=== PATIENT | female | born 1940 | race Caucasian/White ===

== ENCOUNTER 2016-07-01 18:14 | Emergency (ER) | payer MEDICARE, OTHER ==
[2016-07-01] MEDS ORDERED: NORCO 5/325 MG PO ONE (18:21)
[2016-07-01] MEDS ORDERED: BACIGUENT PACKET TP ONE (18:21)
--- NOTE | 2016-07-01 18:26 | ERPHSYRPT ---
- History of Present Illness Time Seen by Provider: 07/01/16 18:18 Source: patient, family Physician History: CC: right thumb injury Hx: 75 y/o patient of Dr Amaya. She injured right thumb at home. Hit on a counter. She has a cut. Tetanus vaccine up to date. Pain is severe. Hurts worse with movement. Occurred: just prior to arrival Extremities Pain Location: thumb: right Allergies/Adverse Reactions: No Known Drug Allergies Allergy (Verified 07/01/16 18:24) Home Medications: Dicyclomine HCl [Bentyl] 10 mg PO UD 09/09/14 [History] Hx Tetanus, Diphtheria Vaccination/Date Given: Yes Hx Influenza Vaccination/Date Given: No Hx Pneumococcal Vaccination/Date Given: No - Review of Systems Constitutional: No Symptoms Musculoskeletal: Injury, Joint Pain (right thumb), No Back Pain, No Neck Pain Neurological: No Focal Weakness, No Parasthesia - Past Medical History Pertinent Past Medical History: Yes Neurological History: No Pertinent History ENT History: Cataracts Cardiac History: Hypertension Respiratory History: No Pertinent History Endocrine Medical History: No Pertinent History Musculoskeletal History: Arthritis, Fractures GI Medical History: Other History: No Pertinent History Psycho-Social History: No Pertinent History Female Reproductive Disorders: No Pertinent History Other Medical History: SPASTIC COLON - Past Surgical History Past Surgical History: Yes Neuro Surgical History: No Pertinent History Cardiac: No Pertinent History Respiratory: No Pertinent History Gastrointestinal: Appendectomy, Cholecystectomy Genitourinary: No Pertinent History Musculoskeletal: Joint Replacement, Orthopedic Surgery Female Surgical History: Hysterectomy Other Surgical History: RIGHT KNEE REPLACEMENT IN 2002, SURGERY LEFT WRIST 2002 , LEFT KNEE REPLACEMENT 2014 - Social History Smoking Status: Never smoker Exposure to second hand smoke: No Alcohol Use: None Drug Use: none Patient Lives Alone: No Significant Family History: no pertinent family hx - Female History Hx Now: No - Nursing Vital Signs Nursing Vital Signs: Initial Vital Signs Temperature 97.9 F Temperature Source Oral Pulse Rate 82 Respiratory Rate 20 Blood Pressure [Left Arm] 127/62 Pain Intensity 8 - Physical Exam General Appearance: alert Eyes, Ears, Nose, Throat Exam: moist mucous membranes Cardiovascular/Respiratory Exam: regular rate/rhythm Wrist Exam: normal inspection, non-tender Hand Exam: limited ROM (right thumb, abrasion right thumb, tenderness present. Cap refill intact.) Neuro/Tendon Exam: normal sensation, normal motor functions Mental Status Exam: alert, 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, cooperative Skin Exam: warm, dry - Course Nursing assessment & vital signs reviewed: Yes - Radiology Exams hand X-ray Interpretation: Reviewed by me, No Fracture Ordered Tests: Active Orders 24 hr Category Date Time Status Wound Care STAT Care 07/01/16 18:21 Active HAND (MINIMUM 3 VIEWS) Stat Exams 07/01/16 18:20 Taken Medication Summary Discontinued Medications Generic Name Dose Route Start Last Admin Trade Name Freq PRN Reason Stop Dose Admin Hydrocodone Bitart/Acetaminophen 1 tab 07/01/16 18:21 07/01/16 18:39 [place] 5/325 Mg PO 07/01/16 18:22 1 tab STAT ONE Administration Hydrocodone Bitart/Acetaminophen Confirm 07/01/16 18:31 [place] 5/325 Mg Administered 07/01/16 18:32 Dose 1 tab .ROUTE .STK-MED ONE Bacitracin 0.9 gm 07/01/16 18:21 07/01/16 18:38 [place] Packet TP 07/01/16 18:22 0.9 gm STAT ONE Administration Bacitracin Confirm 07/01/16 18:30 [place] Packet Administered 07/01/16 18:31 Dose 1 gm .ROUTE .STK-MED ONE - Progress Progress Note: 07/01/16 18:44 Abrasion cleansed. Sutures not needed. Will splint and wound care advised. Counseled pt/family regarding: diagnosis, need for follow-up, rad results - Departure Time of Disposition: 18:45 Departure Disposition: Home Clinical Impression: Contusion of right thumb, Abrasion of right thumb Condition: Stable Critical Care Time: No Referrals: MARGO ELI [Primary Care Provider] - Instructions: Abrasion, Contusion Additional Instructions: Cleanse wound daily with mild soap and water. Splint, ice, rest. Tylenol as directed for discomfort. Follow up with Dr Amaya in 2 days if still painful.
[2016-07-01] MEDS ORDERED: BACIGUENT PACKET ONE (18:30)
[2016-07-01] MEDS ORDERED: NORCO 5/325 MG ONE (18:31)
[2016-07-01 18:32] VITALS: O2SAT 94
[2016-07-01 18:57] VITALS: BP 151/46; PULSE 80
--- NOTE | 2016-07-02 08:37 | XRAY ---
Indication: Thumb laceration following injury. Comparison: None 3 views of the right hand demonstrates osteopenia, fourth finger ring, mild degenerative changes of all IP joints, advanced degenerative changes of the first metacarpal multangular articulation, and post surgical changes of the wrist as evidenced by proximal carpalectomy and orthopedic tack. No other bony, articular, or soft tissue abnormalities. Impression: Nonacute right hand with chronic features.
== END 2016-07-01 18:57 | disposition home or self-care (01) ==
LOC: ED 18:14
DX: S60.011A Contusion of right thumb without damage to nail, initial encounter (principal); S60.311A Abrasion of right thumb, initial encounter; W22.8XXA Striking against or struck by other objects, initial encounter; I10 Essential (primary) hypertension
CPT/HCPCS: 73130; 99283; A9270-GY

== ENCOUNTER 2017-03-03 10:54 | Inpatient (IN) | payer MEDICARE, OTHER ==
[2017-03-03 11:30] LABS: ADD MANUAL DIFF? NO (NO); BASOPHIL % 0.2 % (0.0-0.4); Basophil (Absolute #) 0.01 (0-0.4); Eosinophil (Absolute #) 0.17 (0-0.5); Granulocyte Absolute (ANC) 3.37 (1.4-6.9); Granulocytes % 59.8 % (36.0-66.0); Hematocrit 36.2 % (35-47); Hemoglobin 12.3 gm/dl (12.0-16.0); Lymphocyte (Absolute #) 1.39 (1.0-4.6); Lymphocytes % 24.6 % (24.0-44.0); Mean Cell Volume 91.2 fl (78-100); Mean Corpuscular Hemoglobin 30.9 pg (26-32); Mean Platelet Volume 11.2 fl (6-9.5); Monocytes % 12.4 % (0.0-12.0); Platelet Count 196 K/mm3 (150-450); Red Blood Count 3.97 M/mm3 (4.1-5.4); Red Cell Distribution Width 13.5 % (11.5-14.0); White Blood Count 5.6 K/mm3 (4.0-10.5)
[2017-03-03 11:52] LABS: TROPONIN < 0.017 ng/ml (0.000-0.056)
[2017-03-03] MEDS ORDERED: BABY ASPIRIN 81 MG CHEW (11:56)
[2017-03-03] MEDS ORDERED: SUBLIMAZE 100 MCG/2 ML ×2 (11:56→13:02)
[2017-03-03] MEDS: SUBLIMAZE 100 MCG/2 ML IV ×2 (11:57→13:04)
[2017-03-03] MEDS: BABY ASPIRIN 81 MG CHEW PO (11:58)
[2017-03-03 11:59] LABS: ALBUMIN 3.5 g/dL (3.4-5.0); ALKALINE PHOSPHATASE 48 U/L (46-116); ANION GAP 14.1 MEQ/L (5-15); BLOOD UREA NITROGEN 10 mg/dL (9-20); CHLORIDE 106 mEq/L (98-107); Calcium 8.7 mg/dL (8.5-10.1); Carbon Dioxide 25.7 mEq/L (21-32); Creatinine 1 0.78 mg/dl (0.55-1.30); EST GLOMERULAR FILTRATION RATE > 60 ML/MIN; Glucose 108 MG/DL (70-110); Lactic Acid 1.1 (0.4-2.0); NT PRO BNP 694 pg/ml (0-450); Potassium 4.1 mEq/L (3.5-5.1); SGOT/AST 29 U/L (15-37); SGPT/ALT 20 U/L (12-78); SODIUM 142 mEq/L (136-145); Total Protein 7.4 gm/dL (6.4-8.2); VBG BASE EXCESS 3.7 (-2.0-2.0); VBG CARBOXYHEMOGLOBIN 2.9 % T HGB (0.0-6.9); VBG HCO3- 27.7 meq/L (22-28); VBG HEMOGLOBIN 12.9; VBG O2 SATURATION 88.3 (95-100); VBG PCO2 39 mm/Hg (42-55); VBG POTASSIUM 4.3 (3.5-5.1); VBG pH 7.46 (7.32-7.42)
[2017-03-03] MEDS ORDERED: PROVENTIL 2.5 MG/3 ML NEB IH (12:13)
[2017-03-03] MEDS: PROVENTIL 2.5 MG/3 ML NEB IH (12:15)
[2017-03-03] MEDS ORDERED: Lasix 40 MG/4 ML (12:29)
[2017-03-03] MEDS: Lasix 40 MG/4 ML IV (12:29)
[2017-03-03 12:58] LABS: D-DIMER QUANTITATION 784.79 ng/mL (0-500)
[2017-03-03 13:07] LABS: ADD URINE CULTURE? NO (NO); Appearance CLEAR (CLEAR); Bilirubin NEGATIVE (NEGATIVE); Blood NEGATIVE Ery/ul (0-5); COMPLETE URINE MICROSCOPIC? NO; Collection Type VOID; Glucose NEGATIVE (NEGATIVE); Ketones NEGATIVE (NEGATIVE); Leukocyte Esterase NEGATIVE (NEGATIVE); Nitrite NEGATIVE (NEGATIVE); Protein,Urine Dip NEGATIVE (Negative); Specific Gravity 1.005 (1.005-1.025); Urobilinogen NORMAL mg/dL (0-1)
[2017-03-03] MEDS: DUONEB 0.5-3 MG/3 ml Neb IH ×2 (15:57→19:32)
[2017-03-03 17:49] LABS: AMYLASE 28 U/L (25-115)
[2017-03-03 17:49] LABS: LIPASE 69 U/L (73-393)
[2017-03-03] MEDS: MORPHINE SULFATE 4 MG INJ IV (18:26)
[2017-03-03] MEDS: PROTONIX 40 MG IV IV (18:26)
[2017-03-03 18:31] LABS: TROPONIN < 0.017 ng/ml (0.000-0.056)
[2017-03-03 18:35] LABS: INFLUENZA B NEGATIVE (NEGATIVE); RESPIRATORY SYNCTIAL VIRUS NEGATIVE (Negative)
[2017-03-03 18:37] LABS: INFLUENZA A POSITIVE (NEGATIVE)
[2017-03-03 20:18] LABS: TROPONIN < 0.017 ng/ml (0.000-0.056)
[2017-03-03 21:08] LABS: TROPONIN < 0.017 ng/ml (0.000-0.056)
[2017-03-03] MEDS: Tamiflu 75MG Capsule PO (23:16)
[2017-03-03 23:56] LABS: TROPONIN < 0.017 ng/ml (0.000-0.056)
[2017-03-04] MEDS: DUONEB 0.5-3 MG/3 ml Neb IH ×7 (00:24→23:27)
[2017-03-04] MEDS: Zofran 4 MG/2 ML VIAL IV (01:32)
[2017-03-04 05:46] LABS: BASOPHIL % 0.1 % (0.0-0.4); Basophil (Absolute #) 0.01 (0-0.4); Eosinophil % 0.6 % (0.00-5.0); Eosinophil (Absolute #) 0.04 (0-0.5); Granulocyte Absolute (ANC) 5.22 (1.4-6.9); Granulocytes % 75.1 % (36.0-66.0); Hematocrit 33.9 % (35-47); Hemoglobin 11.2 gm/dl (12.0-16.0); Lymphocytes % 14.4 % (24.0-44.0); Mean Cell Volume 91.6 fl (78-100); Mean Platelet Volume 10.6 fl (6-9.5); Monocyte (Absolute #) 0.68 (0.0-1.3); Monocytes % 9.8 % (0.0-12.0); Platelet Count 219 K/mm3 (150-450); Red Cell Distribution Width 13.5 % (11.5-14.0)
[2017-03-04 05:50] LABS: Mean Corpuscular Hemoglobin 30.2 pg (26-32)
[2017-03-04 05:51] LABS: ADD MANUAL DIFF? NO (NO)
[2017-03-04 06:58] LABS: ANION GAP 11.9 MEQ/L (5-15); BLOOD UREA NITROGEN 16 mg/dL (9-20); CHLORIDE 103 mEq/L (98-107); Calcium 8.4 mg/dL (8.5-10.1); Carbon Dioxide 29.4 mEq/L (21-32); Creatinine 1 1.03 mg/dl (0.55-1.30); EST GLOMERULAR FILTRATION RATE 56 ML/MIN; Glucose 149 MG/DL (70-110); Potassium 3.1 mEq/L (3.5-5.1); SODIUM 141 mEq/L (136-145)
[2017-03-04] MEDS: ECOTRIN 81 MG PO (09:00)
[2017-03-04] MEDS: OSELTAMIVIR PHOSPHATE 30 MG CAP PO ×2 (09:00→21:21)
[2017-03-04] MEDS: Klor Con 10 MEQ PO (09:00)
[2017-03-04] MEDS: ENOXAPARIN SODIUM SQ (09:01)
[2017-03-04] MEDS: PROTONIX 40 MG IV IV (09:01)
[2017-03-04] MEDS: PHARMACY DOSING REQUEST MC (09:01)
[2017-03-04] MEDS ORDERED: BENTYL 20 MG PO (09:45)
[2017-03-04] MEDS: Zosyn 2.25 GM 2.25 GM in Dextrose 5%/Water IV Soln. 100ML PLUS BAG 100 ML IV ×4 (16:57→23:46)
[2017-03-04] MEDS: TYLENOL 325 MG PO (21:21)
[2017-03-04] MEDS: Robitussin 100 MG/5 ML PO (21:21)
[2017-03-05] MEDS: DUONEB 0.5-3 MG/3 ml Neb IH ×5 (03:26→19:59)
[2017-03-05] MEDS: Zosyn 2.25 GM 2.25 GM in Dextrose 5%/Water IV Soln. 100ML PLUS BAG 100 ML IV ×4 (05:03→23:35)
[2017-03-05 05:39] LABS: BASOPHIL % 0.3 % (0.0-0.4); Basophil (Absolute #) 0.02 (0-0.4); Eosinophil % 5.1 % (0.00-5.0); Eosinophil (Absolute #) 0.32 (0-0.5); Granulocyte Absolute (ANC) 3.31 (1.4-6.9); Granulocytes % 52.9 % (36.0-66.0); Hematocrit 32.5 % (35-47); Hemoglobin 10.4 gm/dl (12.0-16.0); Lymphocytes % 27.2 % (24.0-44.0); Mean Cell Volume 92.6 fl (78-100); Mean Corpuscular Hemoglobin 29.6 pg (26-32); Mean Platelet Volume 10.8 fl (6-9.5); Monocyte (Absolute #) 0.91 (0.0-1.3); Monocytes % 14.5 % (0.0-12.0); Platelet Count 209 K/mm3 (150-450); Red Blood Count 3.51 M/mm3 (4.1-5.4); Red Cell Distribution Width 13.5 % (11.5-14.0); White Blood Count 6.3 K/mm3 (4.0-10.5)
[2017-03-05 06:45] LABS: ANION GAP 10.5 MEQ/L (5-15); BLOOD UREA NITROGEN 15 mg/dL (9-20); CHLORIDE 104 mEq/L (98-107); Calcium 8.5 mg/dL (8.5-10.1); Carbon Dioxide 30.5 mEq/L (21-32); Creatinine 1 1.01 mg/dl (0.55-1.30); EST GLOMERULAR FILTRATION RATE 57 ML/MIN; Glucose 105 MG/DL (70-110); Potassium 3.6 mEq/L (3.5-5.1); SODIUM 141 mEq/L (136-145)
[2017-03-05] MEDS: PROTONIX 40 MG IV IV (08:12)
[2017-03-05] MEDS: OSELTAMIVIR PHOSPHATE 30 MG CAP PO ×2 (08:12→21:46)
[2017-03-05] MEDS: ECOTRIN 81 MG PO (08:12)
[2017-03-05] MEDS: ENOXAPARIN SODIUM SQ (08:12)
[2017-03-05] MEDS: Robitussin 100 MG/5 ML PO (08:13)
[2017-03-05] MEDS: Ear Wax Drops OT (13:58)
[2017-03-06] MEDS: MORPHINE SULFATE 4 MG INJ IV (02:41)
[2017-03-06] MEDS: Robitussin 100 MG/5 ML PO ×2 (02:41→08:32)
[2017-03-06] MEDS: DUONEB 0.5-3 MG/3 ml Neb IH ×6 (04:02→23:25)
[2017-03-06] MEDS: Zosyn 2.25 GM 2.25 GM in Dextrose 5%/Water IV Soln. 100ML PLUS BAG 100 ML IV ×4 (05:00→23:26)
[2017-03-06 06:16] LABS: BASOPHIL % 0.4 % (0.0-0.4); Basophil (Absolute #) 0.03 (0-0.4); Eosinophil % 6.8 % (0.00-5.0); Eosinophil (Absolute #) 0.51 (0-0.5); Granulocyte Absolute (ANC) 4.38 (1.4-6.9); Granulocytes % 58.6 % (36.0-66.0); Hematocrit 32.9 % (35-47); Hemoglobin 10.5 gm/dl (12.0-16.0); Lymphocyte (Absolute #) 1.78 (1.0-4.6); Lymphocytes % 23.8 % (24.0-44.0); Mean Corpuscular Hgb Concent. 31.9 g/dl (32-36); Mean Platelet Volume 10.9 fl (6-9.5); Monocyte (Absolute #) 0.78 (0.0-1.3); Monocytes % 10.4 % (0.0-12.0); Platelet Count 245 K/mm3 (150-450); Red Cell Distribution Width 13.7 % (11.5-14.0); White Blood Count 7.5 K/mm3 (4.0-10.5)
[2017-03-06 06:18] LABS: ADD MANUAL DIFF? NO (NO)
[2017-03-06 06:59] LABS: ANION GAP 10.2 MEQ/L (5-15); BLOOD UREA NITROGEN 16 mg/dL (9-20); CHLORIDE 105 mEq/L (98-107); Calcium 8.6 mg/dL (8.5-10.1); Carbon Dioxide 30.7 mEq/L (21-32); Creatinine 1 1.03 mg/dl (0.55-1.30); EST GLOMERULAR FILTRATION RATE 56 ML/MIN; Glucose 106 MG/DL (70-110); SODIUM 142 mEq/L (136-145)
[2017-03-06] MEDS: ECOTRIN 81 MG PO (08:33)
[2017-03-06] MEDS: OSELTAMIVIR PHOSPHATE 30 MG CAP PO ×2 (08:33→22:18)
[2017-03-06] MEDS: PROTONIX 40 MG IV IV (08:34)
[2017-03-06] MEDS: ENOXAPARIN SODIUM SQ (08:35)
[2017-03-06] MEDS: Ear Wax Drops OT (08:48)
[2017-03-06] MEDS: FLUZONE HIGH-DOSE 2017-18 SYR IM (10:56)
[2017-03-06] MEDS: NORCO 5/325 MG PO (12:15)
[2017-03-07] MEDS: DUONEB 0.5-3 MG/3 ml Neb IH ×4 (04:16→15:15)
[2017-03-07] MEDS: Zosyn 2.25 GM 2.25 GM in Dextrose 5%/Water IV Soln. 100ML PLUS BAG 100 ML IV ×2 (05:09→11:12)
[2017-03-07 06:15] LABS: BASOPHIL % 0.3 % (0.0-0.4); Basophil (Absolute #) 0.02 (0-0.4); Eosinophil % 7.4 % (0.00-5.0); Eosinophil (Absolute #) 0.58 (0-0.5); Granulocyte Absolute (ANC) 4.98 (1.4-6.9); Granulocytes % 63.1 % (36.0-66.0); Hematocrit 34.3 % (35-47); Hemoglobin 10.8 gm/dl (12.0-16.0); Lymphocytes % 17.7 % (24.0-44.0); Mean Corpuscular Hgb Concent. 31.5 g/dl (32-36); Mean Platelet Volume 10.8 fl (6-9.5); Monocyte (Absolute #) 0.91 (0.0-1.3); Monocytes % 11.5 % (0.0-12.0); Platelet Count 276 K/mm3 (150-450); Red Blood Count 3.65 M/mm3 (4.1-5.4); Red Cell Distribution Width 13.5 % (11.5-14.0); White Blood Count 7.9 K/mm3 (4.0-10.5)
[2017-03-07 06:26] LABS: Mean Corpuscular Hemoglobin 29.5 pg (26-32)
[2017-03-07 06:27] LABS: ADD MANUAL DIFF? NO (NO)
[2017-03-07 07:01] LABS: ANION GAP 10.9 MEQ/L (5-15); BLOOD UREA NITROGEN 17 mg/dL (9-20); CHLORIDE 105 mEq/L (98-107); Carbon Dioxide 29.8 mEq/L (21-32); EST GLOMERULAR FILTRATION RATE 57 ML/MIN; Glucose 93 MG/DL (70-110); Potassium 3.8 mEq/L (3.5-5.1); SODIUM 142 mEq/L (136-145)
[2017-03-07] MEDS: PROTONIX 40 MG IV IV (11:00)
[2017-03-07] MEDS: ECOTRIN 81 MG PO (11:11)
[2017-03-07] MEDS: OSELTAMIVIR PHOSPHATE 30 MG CAP PO (11:12)
[2017-03-07] MEDS: ENOXAPARIN SODIUM SQ (11:12)
[2017-03-07] MEDS: Ear Wax Drops OT (11:24)
== END 2017-03-07 18:05 | disposition home or self-care (01) ==
LOC: ED 10:54 → MED SURG 14:45
CPT/HCPCS: 36000; 36415; 71045; 71046; 71100; 71260; 74176; 80048; 80053; 81002; 82150; 82805; 82962; 83605; 83690; 83880; 84484; 85025; 85379; 87631; 93005; 93041; 93268; 93306; 94640; 94760; 96374; 99285; G0008; G0378; J1650; J1940; J2270; J2405; J2543; J3010

== ENCOUNTER 2017-03-11 13:47 | Emergency (ER) | payer MEDICARE ==
--- NOTE | 2017-03-11 14:21 | ERPHSYRPT ---
- History of Present Illness Time Seen by Provider: 03/11/17 13:54 Source: patient Exam Limitations: no limitations Patient Subjective Stated Complaint: loose stools for 2 days now. no fever, no nausea or vomiting, states she feels weak Triage Nursing Assessment: pt alert,walked in, resp easy, skin w/d pink. no edema noted Physician History: patient was recently admitted from 03/04 to 03/07/2017 for influenza. Patient was also noted to head diverticulitis from abdominal/pelvic CT during her stay. Patient was apparently doing well until today when she noted increased diarrhea and weakness. States diarrhea is watery and without any blood. Patient 's states that she does have 1-2 loose stools per but had about 5 loose stools in the past ho prior to arrival. Patient denies any abdominal pain, fever, chills, cough, chest/abdominal pain, nausea, vomiting or any urinary symptoms. Timing/Duration: today Severity: moderate Associated Symptoms: weakness, other (diarrhea X 5 in past hour), No nausea, No vomiting, No shortness of breath, No diaphoresis Allergies/Adverse Reactions: No Known Drug Allergies Allergy (Verified 03/11/17 13:54) Home Medications: Dicyclomine HCl [Bentyl] 10 mg PO UD 09/09/14 [History] Hx Tetanus, Diphtheria Vaccination/Date Given: Yes Hx Influenza Vaccination/Date Given: Yes Hx Pneumococcal Vaccination/Date Given: No Immunizations Up to Date: Yes - Review of Systems Constitutional: No Fever, No Chills Eyes: No Symptoms Ears, Nose, & Throat: No Symptoms Respiratory: No Cough, No Dyspnea Cardiac: No Chest Pain, No Edema, No Syncope Abdominal/Gastrointestinal: Diarrhea, No Abdominal Pain, No Nausea, No Vomiting Genitourinary Symptoms: No Dysuria, No Frequency, No Hematuria, No Hesitancy, No Incontinence, No Urgency Musculoskeletal: No Back Pain, No Neck Pain Skin: No Rash Neurological: No Dizziness, No Focal Weakness, No Sensory Changes Psychological: No Symptoms Endocrine: No Symptoms All Other Systems: Reviewed and Negative - Past Medical History Pertinent Past Medical History: Yes Neurological History: No Pertinent History ENT History: Cataracts Cardiac History: Hypertension Respiratory History: No Pertinent History Endocrine Medical History: No Pertinent History Musculoskeletal History: Arthritis, Fractures GI Medical History: Other History: No Pertinent History Psycho-Social History: No Pertinent History Female Reproductive Disorders: No Pertinent History Other Medical History: SPASTIC COLON - Past Surgical History Past Surgical History: Yes Neuro Surgical History: No Pertinent History Cardiac: No Pertinent History Respiratory: No Pertinent History Gastrointestinal: Appendectomy, Cholecystectomy Genitourinary: No Pertinent History Musculoskeletal: Joint Replacement, Orthopedic Surgery Female Surgical History: Hysterectomy Other Surgical History: RIGHT KNEE REPLACEMENT IN 2002, SURGERY LEFT WRIST 2002 , LEFT KNEE REPLACEMENT 2014 - Social History Smoking Status: Never smoker Exposure to second hand smoke: Yes Alcohol Use: None Drug Use: none Patient Lives Alone: No Significant Family History: no pertinent family hx - Female History Hx Last Menstrual Period: post Hx Now: No - Nursing Vital Signs Nursing Vital Signs: Initial Vital Signs Temperature 98.2 F 03/11/17 13:57 Pulse Rate 80 03/11/17 13:57 Respiratory Rate 18 03/11/17 13:57 Blood Pressure 159/109 03/11/17 13:57 O2 Sat by Pulse Oximetry 98 03/11/17 13:57 Pain Scale Pain Intensity 0 - Physical Exam General Appearance: no apparent distress, alert Eye Exam: PERRL/EOMI, eyes nml inspection Ears, Nose, Throat Exam: normal ENT inspection, TMs normal, pharynx normal, moist mucous membranes Neck Exam: normal inspection, non-tender, supple, full range of motion Respiratory Exam: normal breath sounds, lungs clear, No respiratory distress Cardiovascular Exam: regular rate/rhythm, normal heart sounds, normal peripheral pulses Gastrointestinal/Abdomen Exam: soft, normal bowel sounds, No tenderness, No distention, No mass Pelvic Exam: not done Back Exam: normal inspection, normal range of motion, No CVA tenderness, No vertebral tenderness Extremity Exam: normal inspection, normal range of motion, pelvis stable Neurologic Exam: alert, 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, cooperative, normal mood/affect, nml cerebellar function, nml station & gait, sensation nml, No motor deficits Skin Exam: normal color, warm, dry, No rash Lymphatic Exam: No adenopathy SpO2: 98 Oxygen Delivery: Room Air - Course Nursing assessment & vital signs reviewed: Yes - Radiology Exams Abdomen X-ray Interpretation: Reviewed by me, Negative, Other (No free air or obstruction) Ordered Tests: Active Orders 24 hr Category Date Time Status IV Insertion STAT Care 03/11/17 14:10 Active cath [Cath for Specimen-Straight] STAT Care 03/11/17 14:52 Active OBSTR/ACUTE ABDOMEN SERIES Stat Exams 03/11/17 15:16 Taken CBC W DIFF Stat Lab 03/11/17 14:22 Completed CMP Stat Lab 03/11/17 14:22 Completed UA W/RFX UR CULTURE Stat Lab 03/11/17 14:10 Completed Medication Summary Discontinued Medications Generic Name Dose Route Start Last Admin Trade Name Jacey PRN Reason Stop Dose Admin Sodium Chloride 500 mls @ 999 mls/hr 03/11/17 14:55 03/11/17 15:13 Sodium Chloride 0.9% 1000 Ml IV 03/11/17 15:25 999 mls/hr .Q31M STA Administration Sodium Chloride Confirm 03/11/17 15:08 Sodium Chloride 0.9% 1000 Ml Administered 03/11/17 15:09 Dose 1,000 mls @ ud .ROUTE .STK-MED ONE Lab/Rad Data: Laboratory Result Diagrams 03/11/17 14:22 03/11/17 14:22 Laboratory Results 03/11/17 03/11/17 03/11/17 Range/Units 14:22 14:22 14:10 WBC 9.5 (4.0-10.5) K/mm3 RBC 4.19 (4.1-5.4) M/mm3 Hgb 12.5 (12.0-16.0) gm/dl Hct 38.6 (35-47) % MCV 92.1 (78-100) fl MCH 29.8 (26-32) pg MCHC 32.4 (32-36) g/dl RDW 13.5 (11.5-14.0) % Plt Count 333 (150-450) K/mm3 MPV 10.3 H (6-9.5) fl Gran % 69.1 H (36.0-66.0) % Lymphocytes % 16.6 L (24.0-44.0) % Monocytes % 8.8 (0.0-12.0) % Eosinophils % 5.1 H (0.00-5.0) % Basophils % 0.4 (0.0-0.4) % Basophils # 0.04 (0-0.4) Sodium 142 (136-145) mEq/L Potassium 3.9 (3.5-5.1) mEq/L Chloride 104 (98-107) mEq/L Carbon Dioxide 30.7 (21-32) mEq/L Anion Gap 11.5 (5-15) MEQ/L BUN 15 (9-20) mg/dL Creatinine 1.06 (0.55-1.30) mg/dl Estimated GFR 54 ML/MIN Glucose 102 (70-110) MG/DL Calcium 9.1 (8.5-10.1) mg/dL Total Bilirubin 0.30 (0.2-1.0) mg/dL AST 22 (15-37) U/L ALT 31 (12-78) U/L Alkaline Phosphatase 65 (46-116) U/L Serum Total Protein 7.8 (6.4-8.2) gm/dL Albumin 3.6 (3.4-5.0) g/dL Ur Collection Type CATH Urine Color YELLOW (YELLOW) Urine Appearance CLEAR (CLEAR) Urine pH 7.0 (5-6) Ur Specific [place] 05 (1.005-1.025) Urine Protein NEGATIVE (Negative) Urine Ketones NEGATIVE (NEGATIVE) Urine Blood NEGATIVE (0-5) Jerad/ul Urine Nitrite NEGATIVE (NEGATIVE) Urine Bilirubin NEGATIVE (NEGATIVE) Urine Urobilinogen NORMAL (0-1) mg/dL Ur Leukocyte Esterase NEGATIVE (NEGATIVE) Urine Culture Reflexed NO (NO) Urine Glucose NEGATIVE (NEGATIVE) mg/dL Specimen Received 03-11-17 1445 - Progress Progress: improved Progress Note: 03/11/17 16:34 Pt. given IVF's and states she feels better 03/11/17 17:27 Pt. unable to give stool sample for C. diff. Will give stool collection kit and out pt. order for stool when available. Counseled pt/family regarding: lab results, diagnosis, rad results - Departure Time of Disposition: 17:29 Departure Disposition: Home Clinical Impression: Diarrhea Condition: Stable Critical Care Time: No Referrals: FOREIGN HARRY [Primary Care Provider] - Instructions: Diarrhea in Adolescents and Adults Additional Instructions: Drink plenty of clear liquids Motrin or Tylenol for fever Return for worse diarrhea, vomiting, abdominal pain, dizziness, weakness or any problems
[2017-03-11 14:22] LABS: BASOPHIL % 0.4 % (0.0-0.4); Basophil (Absolute #) 0.04 (0-0.4); Eosinophil % 5.1 % (0.00-5.0); Eosinophil (Absolute #) 0.48 (0-0.5); Granulocyte Absolute (ANC) 6.53 (1.4-6.9); Granulocytes % 69.1 % (36.0-66.0); Hematocrit 38.6 % (35-47); Hemoglobin 12.5 gm/dl (12.0-16.0); Lymphocyte (Absolute #) 1.57 (1.0-4.6); Lymphocytes % 16.6 % (24.0-44.0); Mean Cell Volume 92.1 fl (78-100); Mean Corpuscular Hemoglobin 29.8 pg (26-32); Mean Corpuscular Hgb Concent. 32.4 g/dl (32-36); Mean Platelet Volume 10.3 fl (6-9.5); Monocyte (Absolute #) 0.83 (0.0-1.3); Monocytes % 8.8 % (0.0-12.0); Platelet Count 333 K/mm3 (150-450); Red Blood Count 4.19 M/mm3 (4.1-5.4); Red Cell Distribution Width 13.5 % (11.5-14.0); White Blood Count 9.5 K/mm3 (4.0-10.5)
[2017-03-11 14:50] LABS: ALBUMIN 3.6 g/dL (3.4-5.0); ANION GAP 11.5 MEQ/L (5-15); BILIRUBIN,TOTAL 0.3 mg/dL (0.2-1.0); Calcium 9.1 mg/dL (8.5-10.1); Carbon Dioxide 30.7 mEq/L (21-32); Creatinine 1 1.06 mg/dl (0.55-1.30); Potassium 3.9 mEq/L (3.5-5.1); Total Protein 7.8 gm/dL (6.4-8.2)
[2017-03-11 15:00] LABS: Appearance CLEAR (CLEAR); Bilirubin NEGATIVE (NEGATIVE); Blood NEGATIVE Ery/ul (0-5); Glucose NEGATIVE (NEGATIVE); Ketones NEGATIVE (NEGATIVE); Leukocyte Esterase NEGATIVE (NEGATIVE); Nitrite NEGATIVE (NEGATIVE); Protein,Urine Dip NEGATIVE (Negative); Urobilinogen NORMAL mg/dL (0-1)
[2017-03-11] MEDS ORDERED: Sodium Chloride 0.9% 1000 ML 1,000 ML ONE (15:08)
[2017-03-11 17:45] VITALS: BP 154/78; PULSE 84; O2SAT 95
--- NOTE | 2017-03-11 20:37 | XRAY ---
Indication: Diarrhea 2 weeks. Flu symptoms. Comparison: Chest exam March 06, 2017. 2 views of the abdomen nonacute and nonobstructed with cholecystotomy clips. Solid organs unremarkable. Osseous structures intact with mild degenerative changes throughout the spine. Single AP chest again demonstrates normal heart and lungs with a few incidental calcified granulomas. No new/acute findings. Impression: 1. Negative abdomen. 2. Stable nonacute one view chest.
== END 2017-03-11 17:49 | disposition home or self-care (01) ==
LOC: ED 13:47
DX: R19.7 Diarrhea, unspecified (principal); R53.1 Weakness
CPT/HCPCS: 99284; 36000; 96360; 81002; 36415; 85025; 80053; 74022; P9612

== ENCOUNTER 2017-07-30 14:01 | Emergency (ER) | payer MEDICARE ==
[2017-07-30] MEDS ORDERED: MORPHINE SULFATE 4 MG INJ IV ONE (14:21)
[2017-07-30] MEDS ORDERED: Zofran 4 MG/2 ML VIAL IV ONE ×2 (14:22→16:01)
--- NOTE | 2017-07-30 14:26 | ERPHSYRPT ---
- History of Present Illness Time Seen by Provider: 07/30/17 14:13 Source: patient Exam Limitations: no limitations Patient Subjective Stated Complaint: pt brought to ed per ems-medic 1- from home with reports of severe right knee pain-pt reports right knee pain started thursday-denies fall or injury-states that she seen [facility] today-labs were ordered and drawn-pt rode home and when she got home her knee hurt to bad to get out of the vehicle Triage Nursing Assessment: pt arrived to ed pale warm and [id number] swelling noted-no redness-no obvious injury Physician History: 77 y/o female brought in by EMS for severe right knee pain for the past 2 days. Pt states that she can not bear weight on it. No known injury to the knee. Pt admits that the knee is more swollen and warm to touch. No fever or chills. Pt describes the pain as sharp, constant, 8/10, worse with movement and pt has not taken any pain meds. Pt was seen in the clinic and had a negative knee x ray. Method of Injury: unknown Occurred: yesterday Quality: constant Severity of Pain-Max: severe Severity of Pain-Current: severe Lower Extremities Pain: knee: right Modifying Factors: Improves With: nothing Associated Symptoms: none Allergies/Adverse Reactions: No Known Drug Allergies Allergy (Verified 07/30/17 14:13) Home Medications: Dicyclomine HCl [Bentyl] 10 mg PO UD 09/09/14 [History] Hx Tetanus, Diphtheria Vaccination/Date Given: Yes Hx Influenza Vaccination/Date Given: Yes Hx Pneumococcal Vaccination/Date Given: No Immunizations Up to Date: Yes - Review of Systems Constitutional: No Fever, No Chills Eyes: No Symptoms Ears, Nose, & Throat: No Symptoms Respiratory: No Cough, No Dyspnea Cardiac: No Chest Pain, No Edema, No Syncope Abdominal/Gastrointestinal: No Abdominal Pain, No Nausea, No Vomiting, No Diarrhea Genitourinary Symptoms: No Dysuria Musculoskeletal: Joint Pain, Joint Swelling, No Back Pain, No Neck Pain Skin: No Rash Neurological: No Dizziness, No Focal Weakness, No Sensory Changes Psychological: No Symptoms Endocrine: No Symptoms All Other Systems: Reviewed and Negative - Past Medical History Pertinent Past Medical History: Yes Neurological History: No Pertinent History ENT History: Cataracts Cardiac History: Hypertension Respiratory History: No Pertinent History Endocrine Medical History: No Pertinent History Musculoskeletal History: Arthritis, Fractures GI Medical History: Other History: No Pertinent History Psycho-Social History: No Pertinent History Female Reproductive Disorders: No Pertinent History Other Medical History: SPASTIC COLON - Past Surgical History Past Surgical History: Yes Neuro Surgical History: No Pertinent History Cardiac: No Pertinent History Respiratory: No Pertinent History Gastrointestinal: Appendectomy, Cholecystectomy Genitourinary: No Pertinent History Musculoskeletal: Joint Replacement, Orthopedic Surgery Female Surgical History: Hysterectomy Other Surgical History: RIGHT KNEE REPLACEMENT IN 2002, SURGERY LEFT WRIST 2002 , LEFT KNEE REPLACEMENT 2014 - Social History Smoking Status: Never smoker Exposure to second hand smoke: Yes Alcohol Use: None Drug Use: none Patient Lives Alone: No Significant Family History: no pertinent family hx - Female History Hx Now: No - Nursing Vital Signs Nursing Vital Signs: Initial Vital Signs Temperature 99.1 F 07/30/17 14:06 Pulse Rate 101 H 07/30/17 14:06 Respiratory Rate 18 07/30/17 14:06 Blood Pressure 123/70 07/30/17 14:06 O2 Sat by Pulse Oximetry 96 07/30/17 14:06 Pain Scale Pain Intensity 8 - Physical Exam General Appearance: alert Eyes, Ears, Nose, Throat Exam: moist mucous membranes Neck Exam: non-tender, supple Cardiovascular/Respiratory Exam: chest non-tender, normal breath sounds, regular rate/rhythm, no respiratory distress Gastrointestinal/Abdominal Exam: non-tender, guarding Back Exam: normal inspection, No vertebral tenderness Hips Exam: bilateral: non-tender, normal inspection, normal range of motion Legs Exam: bilateral leg: non-tender, normal inspection, normal range of motion Knees Exam: right knee: joint effusion, pain, soft tissue tenderness, swelling Ankle Exam: bilateral ankle: non-tender, normal inspection, normal range of motion, no evidence of injury Foot Exam: bilateral foot: non-tender, normal inspection, normal range of motion , no evidence of injury Neuro/Tendon Exam: normal sensation, normal motor functions Mental Status Exam: alert, 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, cooperative Skin Exam: normal color, warm, dry SpO2: 96 Oxygen Delivery: Room Air - Course Nursing assessment & vital signs reviewed: Yes Ordered Tests: Active Orders 24 hr Category Date Time Status IV Insertion STAT Care 07/30/17 14:21 Active KNEE (3 VIEWS) Routine Exams 07/30/17 15:48 Completed VENOUS UNILAT/LIMITED EXTREMIT [US] Stat Exams 07/30/17 15:22 Completed BLOOD CULTURE Stat Lab 07/30/17 15:24 Received CBC W DIFF Stat Lab 07/30/17 14:13 Completed CMP Stat Lab 07/30/17 14:13 Completed Erythrocyte Sedimentation Rate Stat Lab 07/30/17 14:13 Completed Uric Acid Stat Lab 07/30/17 14:13 Completed Medication Summary Discontinued Medications Generic Name Dose Route Start Last Admin Trade Name Alokq PRN Reason Stop Dose Admin Hydromorphone HCl 1 mg 07/30/17 16:00 07/30/17 16:15 Hydromorphone 1 Mg/Ml Ampule IV 07/30/17 16:01 1 mg STAT ONE Administration Hydromorphone HCl Confirm 07/30/17 16:11 Dilaudid 2 Mg Injection Administered 07/30/17 16:12 Dose 2 mg .ROUTE .STK-MED ONE Vancomycin HCl 1 gm in 250 mls @ 167 mls/hr 07/30/17 16:01 07/30/17 16:15 Vancomycin 1gm/ Ns 250ml IV 07/30/17 17:30 167 mls/hr STAT ONE Administration Vancomycin HCl Confirm 07/30/17 16:11 Vancomycin 1gm/ Ns 250ml Administered 07/30/17 16:12 Dose 250 mls @ ud IV .STK-MED ONE Morphine Sulfate 4 mg 07/30/17 14:21 07/30/17 14:28 Morphine Sulfate 4 Mg Inj IV 07/30/17 14:22 4 mg STAT ONE Administration Morphine Sulfate Confirm 07/30/17 14:27 Morphine Sulfate 4 Mg Inj Administered 07/30/17 14:28 Dose 4 mg .ROUTE .STK-MED ONE Ondansetron HCl 4 mg 07/30/17 14:22 07/30/17 14:28 Zofran 4 Mg/2 Ml Vial IV 07/30/17 14:23 4 mg STAT ONE Administration Ondansetron HCl Confirm 07/30/17 14:27 Zofran 4 Mg/2 Ml Vial Administered 07/30/17 14:28 Dose 4 mg .ROUTE .STK-MED ONE Ondansetron HCl 4 mg 07/30/17 16:01 07/30/17 16:15 Zofran 4 Mg/2 Ml Vial IV 07/30/17 16:02 4 mg STAT ONE Administration Ondansetron HCl Confirm 07/30/17 16:11 Zofran 4 Mg/2 Ml Vial Administered 07/30/17 16:12 Dose 4 mg .ROUTE .STK-MED ONE Lab/Rad Data: Laboratory Result Diagrams 07/30/17 14:13 07/30/17 14:13 Laboratory Results 07/30/17 07/30/17 Range/Units 14:13 14:13 WBC 12.6 H (4.0-10.5) K/mm3 RBC 4.01 L (4.1-5.4) M/mm3 Hgb 12.4 (12.0-16.0) gm/dl Hct 36.8 (35-47) % MCV 91.8 (78-100) fl MCH 30.9 (26-32) pg MCHC 33.7 (32-36) g/dl RDW 13.2 (11.5-14.0) % Plt Count 230 (150-450) K/mm3 MPV 10.7 H (6-9.5) fl Gran % 74.1 H (36.0-66.0) % Eos # (Auto) 0.10 (0-0.5) Absolute Lymphs (auto) 1.78 (1.0-4.6) Absolute Monos (auto) 1.36 H (0.0-1.3) Lymphocytes % 14.1 L (24.0-44.0) % Monocytes % 10.8 (0.0-12.0) % Eosinophils % 0.8 (0.00-5.0) % Basophils % 0.2 (0.0-0.4) % Absolute Granulocytes 9.33 H (1.4-6.9) Basophils # 0.03 (0-0.4) ESR 67 H (0-20) mm/hr Sodium 144 (137-145) mmol/L Potassium 4.0 (3.5-5.1) mmol/L Chloride 106 (98-107) mmol/L Carbon Dioxide 25 (22-30) mmol/L Anion Gap 17.1 H (5-15) MEQ/L BUN 22 H (7-17) mg/dL Creatinine 0.79 (0.52-1.04) mg/dL Estimated GFR > 60.0 ML/MIN Glucose 147 H (74-106) mg/dL Uric Acid 5.5 (2.6-6.0) mg/dL Calcium 9.2 (8.4-10.2) mg/dL Total Bilirubin 0.80 (0.2-1.3) mg/dL AST 18 (14-36) U/L ALT 10 (0-35) U/L Alkaline Phosphatase 51 (38-126) U/L Serum Total Protein 7.3 (6.3-8.2) g/dL Albumin 4.1 (3.5-5.0) g/dL - Progress Progress: unchanged Progress Note: 07/30/17 16:09 As per the dialysis biomed technician, the CT scan LE can not be done due to hardware distorting the image. The patient has a white count of 12,000 and an ESR of 67. Pt still has knee pain after receiving morphine. Pt will be given a dose of dilaudid as well as vancomycin for possible septic joint. There is not enough of an effusion to tap the knee. Pt will require orthopedic evaluation and pt prefers to be transferred to orthopedics in [place]. 07/30/17 16:27 Pt has alejandro accepted at [place] under the care of Dr Bower, hospitalist with Dr Hutton, orthopedics as a consult. He requested that the vancomycin be held and the patient be kept NPO. - Departure Time of Disposition: 16:28 Departure Disposition: Transfer Clinical Impression: Knee pain Qualifiers: Chronicity: acute Laterality: right Qualified Code(s): M25.561 - Pain in right knee Condition: Fair Critical Care Time: No Referrals: FOREIGN HARRY [Primary Care Provider] -
[2017-07-30] MEDS ORDERED: Zofran 4 MG/2 ML VIAL ONE ×2 (14:27→16:11)
[2017-07-30] MEDS ORDERED: MORPHINE SULFATE 4 MG INJ ONE (14:27)
[2017-07-30 14:46] LABS: BASOPHIL % 0.2 % (0.0-0.4); Basophil (Absolute #) 0.03 (0-0.4); Eosinophil % 0.8 % (0.00-5.0); Granulocyte Absolute (ANC) 9.33 (1.4-6.9); Granulocytes % 74.1 % (36.0-66.0); Hematocrit 36.8 % (35-47); Hemoglobin 12.4 gm/dl (12.0-16.0); Lymphocyte (Absolute #) 1.78 (1.0-4.6); Lymphocytes % 14.1 % (24.0-44.0); Mean Cell Volume 91.8 fl (78-100); Mean Corpuscular Hemoglobin 30.9 pg (26-32); Mean Corpuscular Hgb Concent. 33.7 g/dl (32-36); Mean Platelet Volume 10.7 fl (6-9.5); Monocyte (Absolute #) 1.36 (0.0-1.3); Monocytes % 10.8 % (0.0-12.0); Platelet Count 230 K/mm3 (150-450); Red Blood Count 4.01 M/mm3 (4.1-5.4); Red Cell Distribution Width 13.2 % (11.5-14.0); White Blood Count 12.6 K/mm3 (4.0-10.5)
[2017-07-30 15:05] LABS: ALBUMIN 4.1 g/dL (3.5-5.0); ALKALINE PHOSPHATASE 51 U/L (38-126); ANION GAP 17.1 MEQ/L (5-15); BLOOD UREA NITROGEN 22 mg/dL (7-17); CHLORIDE 106 mmol/L (98-107); Calcium 9.2 mg/dL (8.4-10.2); Carbon Dioxide 25 mmol/L (22-30); Creatinine 1 0.79 mg/dL (0.52-1.04); Glucose 147 mg/dL (74-106); SGOT/AST 18 U/L (14-36); SGPT/ALT 10 U/L (0-35); SODIUM 144 mmol/L (137-145); Total Protein 7.3 g/dL (6.3-8.2); Uric Acid 5.5 mg/dL (2.6-6.0)
[2017-07-30 15:11] LABS: Erythrocyte Sedimentation Rate 67 mm/hr (0-20)
[2017-07-30] MEDS ORDERED: Hydromorphone 1 mg/ml Ampule IV ONE (16:00)
--- NOTE | 2017-07-30 16:10 | XRAY ---
Indication: Knee pain. No known injury. Comparison: None 3 views of the right knee demonstrates total knee arthroplasty with intact articulation/prosthesis and a few medial/lateral heterotopic ossifications. No other bony, articular, or soft tissue abnormalities.
[2017-07-30] MEDS ORDERED: Vancomycin 1GM/ Ns 250ML*** 250 ML IV ONE (16:11)
[2017-07-30] MEDS ORDERED: DILAUDID 2 MG INJECTION ONE (16:11)
[2017-07-30] MEDS: Vancomycin 1GM/ Ns 250ML*** 1 GM/250 ML IVPB IV ONE ×2 (16:15→16:30)
--- NOTE | 2017-07-30 16:15 | XRAY ---
Indication: Knee pain. Two-dimensional sonogram and color Doppler imaging of the major venous vessels of the right leg was performed. Comparison: None No thrombus seen in the examined deep venous vessels of the right leg including greater saphenous vein. Veins demonstrate normal compressibility. Venous waveforms are normal with and without augmentation. Incidental 1.8 x 2.5 cm popliteal cyst. Impression: Right leg negative for DVT. Incidental popliteal cyst.
[2017-07-30 16:31] VITALS: BP 143/76; PULSE 87; O2SAT 97
== END 2017-07-30 17:19 | disposition short-term general hospital (02) ==
LOC: ED 14:01
DX: M25.561 Pain in right knee (principal); Z79.899 Other long term (current) drug therapy; Z96.653 Presence of artificial knee joint, bilateral
CPT/HCPCS: 36000; 36415; 73562; 80053; 84550; 85025; 85652; 87040; 93971; 96374; 96375; 96376; 99285; J1170; J2270; J2405; J3370

== ENCOUNTER 2017-10-12 11:12 | Emergency (ER) | payer MEDICARE ==
--- NOTE | 2017-10-12 11:52 | ERPHSYRPT ---
- History of Present Illness Time Seen by Provider: 10/12/17 11:50 Source: patient Patient Subjective Stated Complaint: STATES SHE CAME TO OUTPATIENT THERAPY, AND BECAME WEAK AND SHAKY. STATES SHE HAD SOME JUICE WITH NO HELP. STATES SHE HAD LOW HR. Triage Nursing Assessment: ALERT AND ORIENTED. DENIES COUGH OR CONGESTION, CHEST PAIN, NAUSEA, VOMITING. LUNGS CLEAR TO AUSCULTATION. BOWEL SOUNDS WNL. DENIES DIARRHEA OR CONSTIPATION. PEDAL PULSES BILATERAL STRONG. Physician History: mild to mod general weakness today, no injury, no loc, no fever, no NV, no pain Allergies/Adverse Reactions: No Known Drug Allergies Allergy (Verified 07/30/17 14:13) Home Medications: Dicyclomine HCl [Bentyl] 10 mg PO UD 09/09/14 [History] Hx Tetanus, Diphtheria Vaccination/Date Given: Yes Hx Influenza Vaccination/Date Given: Yes Hx Pneumococcal Vaccination/Date Given: Yes Immunizations Up to Date: Yes - Review of Systems Constitutional: Weakness, No Fever Eyes: No Eye Redness, No Vision Changes Ears, Nose, & Throat: No Nose Pain, No Mouth Pain Respiratory: No Cyanosis, No Dyspnea Cardiac: No Chest Pain Abdominal/Gastrointestinal: No Abdominal Pain, No Vomiting Genitourinary Symptoms: No Dysuria Musculoskeletal: No Back Pain, No Neck Pain Skin: No Rash Neurological: No Dizziness, No Focal Weakness, No Headache - Past Medical History Pertinent Past Medical History: Yes Neurological History: No Pertinent History ENT History: Cataracts Cardiac History: No Pertinent History Respiratory History: No Pertinent History Endocrine Medical History: No Pertinent History Musculoskeletal History: Osteoarthritis GI Medical History: Other History: No Pertinent History Psycho-Social History: No Pertinent History Female Reproductive Disorders: No Pertinent History Other Medical History: R TKA 2002, L 2014 - Past Surgical History Past Surgical History: Yes Neuro Surgical History: No Pertinent History Cardiac: No Pertinent History Respiratory: No Pertinent History Gastrointestinal: Appendectomy, Cholecystectomy Genitourinary: No Pertinent History Musculoskeletal: Joint Replacement, Orthopedic Surgery Female Surgical History: Hysterectomy Other Surgical History: RIGHT KNEE REPLACEMENT IN 2002, SURGERY LEFT WRIST 2002 , LEFT KNEE REPLACEMENT 2014 - Social History Smoking Status: Never smoker Exposure to second hand smoke: Yes Alcohol Use: None Drug Use: none Patient Lives Alone: No Significant Family History: no pertinent family hx - Nursing Vital Signs Nursing Vital Signs: Initial Vital Signs Temperature 98.2 F 10/12/17 11:33 Pulse Rate 83 08/27/18 11:33 Respiratory Rate 18 10/12/17 11:33 Blood Pressure 164/110 10/12/17 11:33 O2 Sat by Pulse Oximetry 97 10/12/17 11:33 Pain Scale Pain Intensity 0 - Physical Exam General Appearance: no apparent distress Eye Exam: PERRL/EOMI, eyes nml inspection Ears, Nose, Throat Exam: moist mucous membranes Neck Exam: normal inspection Respiratory Exam: normal breath sounds Cardiovascular Exam: regular rate/rhythm Gastrointestinal/Abdomen Exam: soft, No tenderness Extremity Exam: normal range of motion Neurologic Exam: alert, 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, 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, 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 Skin Exam: warm, dry SpO2 Interpretation: normal SpO2: 97 Oxygen Delivery: Room Air - Course Nursing assessment & vital signs reviewed: Yes EKG Interpreted by Me: Other (nsr 70 no stemi, similar to 02/2017) Ordered Tests: Active Orders 24 hr Category Date Time Status Logistics Specialist STAT Care 10/12/17 11:49 Active EKG-ER Only STAT Care 10/12/17 11:47 Active IV Insertion STAT Care 10/12/17 11:47 Active Orthostatic Vital Signs STAT Care 10/12/17 13:49 Active CHEST 1 VIEW (PORTABLE) Stat Exams 10/12/17 11:48 Completed CBC W DIFF Stat Lab 10/12/17 12:05 Completed CMP Stat Lab 10/12/17 12:05 Completed CULTURE,URINE Stat Lab 10/12/17 11:48 Received Lactic Acid Stat Lab 10/12/17 12:02 Completed TROPONIN Q3H Lab 10/12/17 12:05 Completed TROPONIN Q3H Lab 10/12/17 15:00 Ordered TROPONIN Q3H Lab 10/12/17 18:00 Ordered TROPONIN Q3H Lab 10/12/17 21:00 Ordered TROPONIN Q3H Lab 10/13/17 00:00 Ordered UA W/ MICROSCOPIC Stat Lab 10/12/17 11:48 Completed Medication Summary Discontinued Medications Generic Name Dose Route Start Last Admin Trade Name Freq PRN Reason Stop Dose Admin Sodium Chloride 1,000 mls @ 999 mls/hr 10/12/17 11:47 10/12/17 12:52 Sodium Chloride 0.9% 1000 Ml IV 10/12/17 12:47 999 mls/hr .Q1H1M STA Administration Sodium Chloride Confirm 10/12/17 12:50 Sodium Chloride 0.9% 1000 Ml Administered 10/12/17 12:51 Dose 1,000 mls @ .ROUTE .[facility] Lab/Rad Data: Laboratory Result Diagrams 10/12/17 12:05 10/12/17 12:05 Laboratory Results 10/12/17 10/12/17 10/12/17 Range/Units 12:05 12:05 12:05 WBC 8.1 (4.0-10.5) K/mm3 RBC 3.90 L (4.1-5.4) M/mm3 Hgb 12.2 (12.0-16.0) gm/dl Hct 36.4 (35-47) % MCV 93.3 (78-100) fl MCH 31.2 (26-32) pg MCHC 33.5 (32-36) g/dl RDW 13.3 (11.5-14.0) % Plt Count 256 (150-450) K/mm3 MPV 9.7 H (6-9.5) fl Gran % 65.0 (36.0-66.0) % Eos # (Auto) 0.33 (0-0.5) Absolute Lymphs (auto) 1.77 (1.0-4.6) Absolute Monos (auto) 0.67 (0.0-1.3) Lymphocytes % 21.9 L (24.0-44.0) % Monocytes % 8.3 (0.0-12.0) % Eosinophils % 4.1 (0.00-5.0) % Basophils % 0.7 (0.0-0.4) % Absolute Granulocytes 5.24 (1.4-6.9) Basophils # 0.06 (0-0.4) Sodium 143 (137-145) mmol/L Potassium 4.1 (3.5-5.1) mmol/L Chloride 103 (98-107) mmol/L Carbon Dioxide 30 (22-30) mmol/L Anion Gap 13.9 (5-15) MEQ/L BUN 19 H (7-17) mg/dL Creatinine 0.75 (0.52-1.04) mg/dL Estimated GFR > 60.0 ML/MIN Glucose 132 H (74-106) mg/dL Lactic Acid (0.4-2.0) Calcium 9.4 (8.4-10.2) mg/dL Total Bilirubin 0.40 (0.2-1.3) mg/dL AST 13 L (14-36) U/L ALT 10 (0-35) U/L Alkaline Phosphatase 58 (38-126) U/L Troponin I < 0.012 (0.000-0.034) ng/mL Serum Total Protein 7.1 (6.3-8.2) g/dL Albumin 4.2 (3.5-5.0) g/dL Ur Collection Type Urine Color (YELLOW) Urine Appearance (CLEAR) Urine pH (5-6) Ur Specific [place] (1.005-1.025) Urine Protein (Negative) Urine Ketones (NEGATIVE) Urine Blood (0-5) Jerad/ul Urine Nitrite (NEGATIVE) Urine Bilirubin (NEGATIVE) Urine Urobilinogen (0-1) mg/dL Ur Leukocyte Esterase (NEGATIVE) Urine Microscopic WBC (0-5) /HPF Ur Epithelial Cells (FEW) /HPF Urine Bacteria (NEGATIVE) /HPF Urine Culture Reflexed (NO) Urine Glucose (NEGATIVE) mg/dL Specimen Received 10/12/17 10/12/17 Range/Units 12:02 11:48 WBC (4.0-10.5) K/mm3 RBC (4.1-5.4) M/mm3 Hgb (12.0-16.0) gm/dl Hct (35-47) % MCV (78-100) fl MCH (26-32) pg MCHC (32-36) g/dl RDW (11.5-14.0) % Plt Count (150-450) K/mm3 MPV (6-9.5) fl Gran % (36.0-66.0) % Eos # (Auto) (0-0.5) Absolute Lymphs (auto) (1.0-4.6) Absolute Monos (auto) (0.0-1.3) Lymphocytes % (24.0-44.0) % Monocytes % (0.0-12.0) % Eosinophils % (0.00-5.0) % Basophils % (0.0-0.4) % Absolute Granulocytes (1.4-6.9) Basophils # (0-0.4) Sodium (137-145) mmol/L Potassium (3.5-5.1) mmol/L Chloride (98-107) mmol/L Carbon Dioxide (22-30) mmol/L Anion Gap (5-15) MEQ/L BUN (7-17) mg/dL Creatinine (0.52-1.04) mg/dL Estimated GFR ML/MIN Glucose (74-106) mg/dL Lactic Acid 1.7 (0.4-2.0) Calcium (8.4-10.2) mg/dL Total Bilirubin (0.2-1.3) mg/dL AST (14-36) U/L ALT (0-35) U/L Alkaline Phosphatase (38-126) U/L Troponin I (0.000-0.034) ng/mL Serum Total Protein (6.3-8.2) g/dL Albumin (3.5-5.0) g/dL Ur Collection Type CLEAN CATCH Urine Color YELLOW (YELLOW) Urine Appearance HAZY (CLEAR) Urine pH 7.0 (5-6) Ur Specific [place] 1.010 (1.005-1.025) Urine Protein NEGATIVE (Negative) Urine Ketones NEGATIVE (NEGATIVE) Urine Blood NEGATIVE (0-5) Jerad/ul Urine Nitrite NEGATIVE (NEGATIVE) Urine Bilirubin NEGATIVE (NEGATIVE) Urine Urobilinogen NORMAL (0-1) mg/dL Ur Leukocyte Esterase 1+ (NEGATIVE) Urine Microscopic WBC 10-15 (0-5) /HPF Ur Epithelial Cells FEW (FEW) /HPF Urine Bacteria FEW (NEGATIVE) /HPF Urine Culture Reflexed YES (NO) Urine Glucose NEGATIVE (NEGATIVE) mg/dL Specimen Received 10/12/17 1330 - Progress Progress Note: 10/12/17 14:19 differential dw pt as tia, oral fluids, aspirin, see your doctor, return if worse 10/12/17 14:20 Dr Harry says this is not her pt 10/12/17 14:21 pt improved, normal orthostatic vitals Counseled pt/family regarding: lab results, diagnosis, need for follow-up, rad results - Departure Time of Disposition: 14:20 Departure Disposition: Home Clinical Impression: Weak Condition: Stable Critical Care Time: No Referrals: FOREIGN HARRY [Primary Care Provider] - Instructions: Muscle Weakness
--- NOTE | 2017-10-12 12:06 | XRAY ---
Indication: Generalized weakness. Comparison: March 11, 2017. Portable chest again demonstrates normal heart and lungs with a few incidental calcified granulomas. Bony thorax intact with mild degenerative changes. No new/acute findings.
[2017-10-12 12:07] LABS: BASOPHIL % 0.7 % (0.0-0.4); Basophil (Absolute #) 0.06 (0-0.4); Eosinophil % 4.1 % (0.00-5.0); Eosinophil (Absolute #) 0.33 (0-0.5); Granulocyte Absolute (ANC) 5.24 (1.4-6.9); Hematocrit 36.4 % (35-47); Hemoglobin 12.2 gm/dl (12.0-16.0); Lymphocyte (Absolute #) 1.77 (1.0-4.6); Lymphocytes % 21.9 % (24.0-44.0); Mean Cell Volume 93.3 fl (78-100); Mean Corpuscular Hgb Concent. 33.5 g/dl (32-36); Mean Platelet Volume 9.7 fl (6-9.5); Monocyte (Absolute #) 0.67 (0.0-1.3); Monocytes % 8.3 % (0.0-12.0); Platelet Count 256 K/mm3 (150-450); Red Cell Distribution Width 13.3 % (11.5-14.0); White Blood Count 8.1 K/mm3 (4.0-10.5)
[2017-10-12 12:08] LABS: Mean Corpuscular Hemoglobin 31.2 pg (26-32)
[2017-10-12 12:24] LABS: ALBUMIN 4.2 g/dL (3.5-5.0); ALKALINE PHOSPHATASE 58 U/L (38-126); ANION GAP 13.9 MEQ/L (5-15); BLOOD UREA NITROGEN 19 mg/dL (7-17); CHLORIDE 103 mmol/L (98-107); Calcium 9.4 mg/dL (8.4-10.2); Carbon Dioxide 30 mmol/L (22-30); Creatinine 1 0.75 mg/dL (0.52-1.04); Glucose 132 mg/dL (74-106); Potassium 4.1 mmol/L (3.5-5.1); SGOT/AST 13 U/L (14-36); SGPT/ALT 10 U/L (0-35); SODIUM 143 mmol/L (137-145); Total Protein 7.1 g/dL (6.3-8.2)
[2017-10-12] MEDS ORDERED: Sodium Chloride 0.9% 1000 ML 1,000 ML ONE (12:50)
[2017-10-12] MEDS: Sodium Chloride 0.9% 1000 ML 1,000 ML IV STA (12:52)
[2017-10-12 13:33] LABS: Appearance HAZY (CLEAR); Bilirubin NEGATIVE (NEGATIVE); Blood NEGATIVE Ery/ul (0-5); Glucose NEGATIVE (NEGATIVE); Ketones NEGATIVE (NEGATIVE); Leukocyte Esterase 1+ (NEGATIVE); Nitrite NEGATIVE (NEGATIVE); Protein,Urine Dip NEGATIVE (Negative); Urobilinogen NORMAL mg/dL (0-1)
[2017-10-12 13:39] VITALS: O2SAT 97
[2017-10-12 13:42] LABS: Bacteria FEW /HPF (NEGATIVE); Epithelial Cells FEW /HPF (FEW)
[2017-10-12 14:22] VITALS: BP 158/78; PULSE 75
== END 2017-10-12 14:50 | disposition home or self-care (01) ==
LOC: ED 11:12
DX: R53.1 Weakness (principal); Z79.899 Other long term (current) drug therapy
CPT/HCPCS: 36000; 36415; 71045; 80053; 81000; 83605; 84484; 85025; 87077; 87086; 87186; 93005; 93041; 96360; 96361; 99284

== ENCOUNTER 2017-11-13 11:12 | Emergency (ER) | payer MEDICARE ==
--- NOTE | 2017-11-13 11:37 | ERPHSYRPT ---
- History of Present Illness Time Seen by Provider: 11/13/17 11:33 Source: patient Exam Limitations: no limitations Patient Subjective Stated Complaint: states began having pain in right wrist today. denies any injury. Triage Nursing Assessment: ambulated to room per self holding right wrist. wrist slightly swollen and slight deformity noted. good radial pulse. hand warm and normal color. Physician History: The patient is a right-handed 77-year-old female complaining that she started having right wrist pain yesterday. She denies any trauma to the wrist. She has taken ibuprofen with relief. She denies numbness or tingling. She has a past history of surgery on the right wrist last year with removal of 3 wrist bones. Her past medical history is also significant for high cholesterol and irritable bowel. Occurred: yesterday Method of Injury: unknown Quality: constant, sharpness Severity of Pain-Max: moderate Severity of Pain-Current: moderate Extremities Pain Location: wrist: right Modifying Factors: Improves With: pain medication (ibuprofen) Associated Symptoms: none Allergies/Adverse Reactions: No Known Drug Allergies Allergy (Verified 11/13/17 11:26) Home Medications: Dicyclomine HCl [Bentyl] 10 mg PO UD 09/09/14 [History] Atorvastatin Calcium [Lipitor] 10 mg PO HS 11/13/17 [History] Hx Tetanus, Diphtheria Vaccination/Date Given: Yes Hx Influenza Vaccination/Date Given: Yes Hx Pneumococcal Vaccination/Date Given: Yes - Review of Systems Constitutional: No Fever, No Chills Eyes: No Symptoms Ears, Nose, & Throat: No Symptoms Respiratory: No Cough, No Dyspnea Cardiac: No Chest Pain, No Edema, No Syncope Abdominal/Gastrointestinal: No Abdominal Pain, No Nausea, No Vomiting, No Diarrhea Genitourinary Symptoms: No Dysuria Musculoskeletal: Joint Pain Skin: No Rash Neurological: No Dizziness, No Focal Weakness, No Sensory Changes Psychological: No Symptoms Endocrine: No Symptoms Hematologic/Lymphatic: No Symptoms Immunological/Allergic: No Symptoms All Other Systems: Reviewed and Negative - Past Medical History Pertinent Past Medical History: Yes Neurological History: No Pertinent History ENT History: Cataracts Cardiac History: No Pertinent History Respiratory History: No Pertinent History Endocrine Medical History: No Pertinent History Musculoskeletal History: Osteoarthritis GI Medical History: Other History: No Pertinent History Psycho-Social History: No Pertinent History Female Reproductive Disorders: No Pertinent History Other Medical History: R TKA 2002, L 2015 - Past Surgical History Past Surgical History: Yes Neuro Surgical History: No Pertinent History Cardiac: No Pertinent History Respiratory: No Pertinent History Gastrointestinal: Appendectomy, Cholecystectomy Genitourinary: No Pertinent History Musculoskeletal: Joint Replacement, Orthopedic Surgery Female Surgical History: Hysterectomy Other Surgical History: RIGHT KNEE REPLACEMENT IN 2002, SURGERY LEFT WRIST 2002 , LEFT KNEE REPLACEMENT 2014 - Social History Smoking Status: Former smoker Exposure to second hand smoke: Yes Alcohol Use: None Drug Use: none Patient Lives Alone: No Significant Family History: no pertinent family hx - Female History Hx Now: No - Nursing Vital Signs Nursing Vital Signs: Initial Vital Signs Temperature 97.6 F 11/13/17 11:23 Pulse Rate 82 11/13/17 11:23 Respiratory Rate 16 11/13/17 11:23 Blood Pressure 187/91 11/13/17 11:23 O2 Sat by Pulse Oximetry 98 11/13/17 11:23 Pain Scale Pain Intensity 5 - Physical Exam General Appearance: alert Eyes, Ears, Nose, Throat Exam: moist mucous membranes Neck Exam: non-tender, supple Cardiovascular/Respiratory Exam: chest non-tender, normal breath sounds, regular rate/rhythm, no respiratory distress Abdominal Exam: non-tender, No guarding Back Exam: normal inspection, No vertebral tenderness Shoulder Exam: normal inspection Elbow/Forearm Exam: normal inspection Wrist Exam: limited ROM, soft tissue tenderness (right wrist) Hand Exam: normal inspection Neuro/Tendon Exam: normal sensation, normal motor functions Mental Status Exam: alert, 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, cooperative Skin Exam: normal color, warm, dry SpO2 Interpretation: normal SpO2: 98 Oxygen Delivery: Room Air - Radiology Exams Wrist X-ray Interpretation: Reviewed by me, Teleradiologist Report (Dr Oconnor), No Fracture, No Subluxation, Other (No acute fracture; prior surgical resection of proximal row of carpal bones.) Ordered Tests: Active Orders 24 hr Category Date Time Status Cold Application STAT Care 11/13/17 11:36 Active WRIST (MIN 3 VIEWS) Stat Exams 11/13/17 11:37 Completed - Progress Progress: improved Counseled pt/family regarding: diagnosis, rad results - Departure Time of Disposition: 12:32 Departure Disposition: Home Clinical Impression: Right wrist pain Condition: Stable Critical Care Time: No Referrals: MARGO ELI [Primary Care Provider] - Additional Instructions: You have pain and swelling of your right wrist. The x-ray of your wrist was negative for broken bones. You were given Toradol 30 mg by IM in the ER. Take naproxen 500 mg twice a day as needed. Apply ice to the area for 10-15 minutes 2-3 times a day. Follow-up with your primary medical doctor next week if no improvement. Prescriptions: Naproxen 500 mg PO BID PRN #30 tablet.
--- NOTE | 2017-11-13 12:24 | XRAY ---
Exam: 3 views of the right wrist from 11/13/2017. Comparison: 3 views of the right wrist from 07/06/2015 and right hand films from 07/01/2016. Indication: Right wrist pain, primarily within posterior aspect of right wrist since last evening. History of prior right wrist surgery in 2016. Findings: AP, oblique, and lateral images of the right wrist were obtained. There is evidence of proximal row carpalectomy excluding the pisiform. A small orthopedic tack is seen within the hamate bone. I see no fracture of the distal right radius or ulna. There is some focal soft tissue prominence overlying the medial aspect of the distal right ulna as well as the posterior aspect of the right wrist. Correlate clinically. There is a prominent subchondral cyst within the pisiform as well as the greater multangular bone. Advanced osteoarthritis is seen at the carpal-first metacarpal joint space. There is apparent mild radial subluxation of the base of the right first metacarpal with respect to the greater multangular bone on AP image. This is unchanged. A couple subtle radiopaque densities or calcifications are seen projected over where the scaphoid bone was previously located. There is some periarticular bone demineralization. Impression: 1. I see no acute fracture of the distal right radius or ulna. There does appear to be some mild soft tissue swelling overlying the dorsal and ulnar aspect of the right wrist. Correlate clinically. 2. Evidence of prior surgical resection of proximal row of carpal bones excluding the pisiform. An orthopedic tack is again seen within the hamate bone. 3. Advanced osteoarthritis of the carpal-first metacarpal joint space with mild radial subluxation of the base of the right first metacarpal, stable. Subchondral cysts are seen within the pisiform and greater multangular bone.
[2017-11-13] MEDS ORDERED: TORAdol 30 mg Injection IM ONE (12:31)
[2017-11-13] MEDS ORDERED: TORAdol 30 mg Injection ONE (12:34)
[2017-11-13 13:10] VITALS: BP 156/95; PULSE 73; O2SAT 96
== END 2017-11-13 13:14 | disposition home or self-care (01) ==
LOC: ED 11:12
DX: M25.531 Pain in right wrist (principal); Z79.899 Other long term (current) drug therapy
CPT/HCPCS: 73110; 96372; 99284; J1885

== ENCOUNTER 2018-01-21 20:55 | Emergency (ER) | payer MEDICARE, OTHER ==
--- NOTE | 2018-01-21 21:08 | ERPHSYRPT ---
- History of Present Illness Time Seen by Provider: 01/21/18 21:07 Source: patient, family Exam Limitations: no limitations Physician History: 77 y/o obese white female with h/o chronic cp and osteoarthritis presents with sudden onset of left scapular pain. no radiation. has associated soa because hurts to breathe. denies cp and denies abd pain. no cardiac hx. pt has chronic soa. Timing/Duration: today, sudden, worse Method of Injury: unknown Quality: sharp, stabbing Severity of Pain-Max: moderate Severity of Pain-Current: moderate Modifying Factors: Improves With: movement, other (deep breath) Associated Symptoms: denies symptoms, No fever, No loss of bowel control, No constipation, No nausea, No vomiting, No weakness Previous symptoms: no prior history Allergies/Adverse Reactions: No Known Drug Allergies Allergy (Verified 01/21/18 21:26) Home Medications: Dicyclomine HCl [Bentyl] 10 mg PO UD 09/09/14 [History] Atorvastatin Calcium [Lipitor] 10 mg PO HS 11/13/17 [History] Lisinopril 10 mg [Zestril 10 MG] 0 mg PO DAILY 01/21/18 [History] Hx Tetanus, Diphtheria Vaccination/Date Given: Yes Hx Influenza Vaccination/Date Given: Yes Hx Pneumococcal Vaccination/Date Given: Yes - Review of Systems Constitutional: No Symptoms Eyes: No Symptoms Ears, Nose, & Throat: No Symptoms Respiratory: Dyspnea, No Cough, No Stridor, No Wheezing Cardiac: No Symptoms, No Chest Pain, No Palpitations, No Syncope Abdominal/Gastrointestinal: No Symptoms, No Abdominal Pain, No Nausea, No Vomiting, No Diarrhea Genitourinary Symptoms: No Symptoms, No Dysuria, No Frequency, No Hematuria Musculoskeletal: Back Pain (left scapular region), Other Skin: No Symptoms Neurological: No Symptoms Psychological: No Symptoms Endocrine: No Symptoms Hematologic/Lymphatic: No Symptoms Immunological/Allergic: No Symptoms All Other Systems: Reviewed and Negative - Past Medical History Pertinent Past Medical History: Yes Neurological History: No Pertinent History ENT History: Cataracts Cardiac History: No Pertinent History Respiratory History: No Pertinent History Endocrine Medical History: No Pertinent History Musculoskeletal History: Osteoarthritis GI Medical History: Other History: No Pertinent History Psycho-Social History: No Pertinent History Female Reproductive Disorders: No Pertinent History Other Medical History: R TKA 2002, L 2014 - Past Surgical History Past Surgical History: Yes Neuro Surgical History: No Pertinent History Cardiac: No Pertinent History Respiratory: No Pertinent History Gastrointestinal: Appendectomy, Cholecystectomy Genitourinary: No Pertinent History Musculoskeletal: Joint Replacement, Orthopedic Surgery Female Surgical History: Hysterectomy Other Surgical History: RIGHT KNEE REPLACEMENT IN 2002, SURGERY LEFT WRIST 2002 , LEFT KNEE REPLACEMENT 2014 - Social History Smoking Status: Former smoker Exposure to second hand smoke: Yes Alcohol Use: None Drug Use: none Patient Lives Alone: No Significant Family History: no pertinent family hx - Nursing Vital Signs Nursing Vital Signs: Initial Vital Signs Pulse Rate 79 01/21/18 20:58 Respiratory Rate 20 01/21/18 20:58 Blood Pressure 179/94 01/21/18 20:58 O2 Sat by Pulse Oximetry 100 01/21/18 20:58 Pain Scale Pain Intensity 6 - Physical Exam General Appearance: mild distress, alert, anxiety Eye Exam: PERRL/EOMI, eyes nml inspection Ears, Nose, Throat Exam: normal ENT inspection, moist mucous membranes Neck Exam: normal inspection, non-tender, supple, full range of motion Respiratory Exam: normal breath sounds, lungs clear, airway intact, No chest tenderness, No respiratory distress, No accessory muscle use, No rhonchi, No wheezing, No stridor Cardiovascular Exam: regular rate/rhythm, normal heart sounds, normal peripheral pulses Gastrointestinal Exam: soft, normal bowel sounds, No tenderness, No guarding, No rebound Pelvic Exam: not done Rectal Exam: not done Back Exam: normal inspection, normal range of motion, muscle spasm (area of left scapula), No CVA tenderness, No vertebral tenderness Extremity Exam: normal inspection, normal range of motion, pelvis stable Neurologic Exam: alert, 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, cooperative, 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 Care 01/21/18 21:21 Active EKG-ER Only STAT Care 01/21/18 21:21 Active IV Insertion STAT Care 01/21/18 21:21 Active Pulse Oximetry (ED) STAT Care 01/21/18 21:21 Active CHEST WITH CONTRAST [CT] Stat Exams 01/21/18 23:15 Taken CBC W DIFF Stat Lab 01/21/18 21:30 Completed CMP Stat Lab 01/21/18 21:30 Completed D-DIMER QUANTITATION Stat Lab 01/21/18 21:30 Completed NT PRO BNP Stat Lab 01/21/18 21:30 Completed PROTIME WITH INR Stat Lab 01/21/18 21:30 Completed TROPONIN Q3H Lab 01/21/18 21:30 Completed TROPONIN Q3H Lab 01/22/18 00:30 Ordered TROPONIN Q3H Lab 01/22/18 03:30 Ordered TROPONIN Q3H Lab 01/22/18 06:30 Ordered TROPONIN Q3H Lab 01/22/18 09:30 Ordered Medication Summary Generic Name Dose Route Start Last Admin Trade Name Freq PRN Reason Stop Dose Admin Sodium Chloride 500 mls @ 100 mls/hr 01/21/18 22:30 01/21/18 22:49 Sodium Chloride 0.9% 500 Ml IV 02/20/18 22:29 100 mls/hr .Q5H OLGA Administration Discontinued Medications Generic Name Dose Route Start Last Admin Trade Name Freq PRN Reason Stop Dose Admin Enalaprilat 0.625 mg 01/21/18 21:54 01/21/18 22:05 Vasotec I.V. 2.5 Mg IV 01/21/18 21:55 0.625 mg STAT ONE Administration Enalaprilat Confirm 01/21/18 22:02 Vasotec I.V. 2.5 Mg Administered 01/21/18 22:03 Dose 2.5 mg IV .STK-MED ONE Sodium Chloride 500 mls @ 500 mls/hr 01/21/18 22:21 01/21/18 22:48 Sodium Chloride 0.9% 500 Ml IV 01/21/18 23:20 0 mls/hr .Q1H ONE Infusion Sodium Chloride Confirm 01/21/18 22:23 Sodium Chloride 0.9% 1000 Ml Administered 01/21/18 22:24 Dose 1,000 mls @ ud .ROUTE .STK-MED ONE Morphine Sulfate 2 mg 01/21/18 21:24 01/21/18 21:31 Morphine Sulfate 2 Mg Inj IV 01/21/18 21:25 2 mg STAT ONE Administration Morphine Sulfate Confirm 01/21/18 21:29 Morphine Sulfate 2 Mg Inj Administered 01/21/18 21:30 Dose 2 mg .ROUTE .STK-MED ONE Ondansetron HCl 4 mg 01/21/18 21:24 01/21/18 21:31 Zofran 4 Mg/2 Ml Vial IV 01/21/18 21:25 4 mg STAT ONE Administration Ondansetron HCl Confirm 01/21/18 21:29 Zofran 4 Mg/2 Ml Vial Administered 01/21/18 21:30 Dose 4 mg .ROUTE .STK-MED ONE Lab/Rad Data: Laboratory Result Diagrams 01/21/18 21:30 01/21/18 21:30 Laboratory Results 01/21/18 01/21/18 01/21/18 Range/Units 21:30 21:30 21:30 WBC (4.0-10.5) K/mm3 RBC (4.1-5.4) M/mm3 Hgb (12.0-16.0) gm/dl Hct (35-47) % MCV (78-100) fl MCH (26-32) pg MCHC (32-36) g/dl RDW (11.5-14.0) % Plt Count (150-450) K/mm3 MPV (6-9.5) fl Gran % (36.0-66.0) % Eos # (Auto) (0-0.5) Absolute Lymphs (auto) (1.0-4.6) Absolute Monos (auto) (0.0-1.3) Lymphocytes % (24.0-44.0) % Monocytes % (0.0-12.0) % Eosinophils % (0.00-5.0) % Basophils % (0.0-0.4) % Absolute Granulocytes (1.4-6.9) Basophils # (0-0.4) PT 12.5 H (9.95-12.35) SECONDS INR 1.07 (0.8-3.0) D-Dimer 1048 H* (215-500) ng/mL Sodium 143 (137-145) mmol/L Potassium 4.4 (3.5-5.1) mmol/L Chloride 104 (98-107) mmol/L Carbon Dioxide 29 (22-30) mmol/L Anion Gap 14.2 (5-15) MEQ/L BUN 25 H (7-17) mg/dL Creatinine 1.12 H (0.52-1.04) mg/dL Estimated GFR 50.3 ML/MIN Glucose 146 H (74-106) mg/dL Calcium 9.2 (8.4-10.2) mg/dL Total Bilirubin 0.20 (0.2-1.3) mg/dL AST 14 (14-36) U/L ALT 11 (0-35) U/L Alkaline Phosphatase 88 (38-126) U/L Troponin I < 0.012 (0.000-0.034) ng/mL NT-Pro-B Natriuret Pep 592 (0-1800) pg/mL Serum Total Protein 7.4 (6.3-8.2) g/dL Albumin 4.3 (3.5-5.0) g/dL 01/21/18 Range/Units 21:30 WBC 10.1 (4.0-10.5) K/mm3 RBC 4.07 L (4.1-5.4) M/mm3 Hgb 12.3 (12.0-16.0) gm/dl Hct 37.8 (35-47) % MCV 92.9 (78-100) fl MCH 30.2 (26-32) pg MCHC 32.5 (32-36) g/dl RDW 13.6 (11.5-14.0) % Plt Count 263 (150-450) K/mm3 MPV 10.3 H (6-9.5) fl Gran % 62.7 (36.0-66.0) % Eos # (Auto) 0.60 H (0-0.5) Absolute Lymphs (auto) 2.28 (1.0-4.6) Absolute Monos (auto) 0.83 (0.0-1.3) Lymphocytes % 22.6 L (24.0-44.0) % Monocytes % 8.2 (0.0-12.0) % Eosinophils % 6.0 H (0.00-5.0) % Basophils % 0.5 (0.0-0.4) % Absolute Granulocytes 6.31 (1.4-6.9) Basophils # 0.05 (0-0.4) PT (9.95-12.35) SECONDS INR (0.8-3.0) D-Dimer (215-500) ng/mL Sodium (137-145) mmol/L Potassium (3.5-5.1) mmol/L Chloride (98-107) mmol/L Carbon Dioxide (22-30) mmol/L Anion Gap (5-15) MEQ/L BUN (7-17) mg/dL Creatinine (0.52-1.04) mg/dL Estimated GFR ML/MIN Glucose (74-106) mg/dL Calcium (8.4-10.2) mg/dL Total Bilirubin (0.2-1.3) mg/dL AST (14-36) U/L ALT (0-35) U/L Alkaline Phosphatase (38-126) U/L Troponin I (0.000-0.034) ng/mL NT-Pro-B Natriuret Pep (0-1800) pg/mL Serum Total Protein (6.3-8.2) g/dL Albumin (3.5-5.0) g/dL - Progress Progress: unchanged, improved, pain not gone completely, re-examined Progress Note: 01/22/18 00:07 ct chest- no acute pulm embolism. pt states she is feeliing well. just a touch of localized pain in same area. no cp. tingling left arm improved. she does not need or want any pain meds Counseled pt/family regarding: lab results, diagnosis, need for follow-up, rad results - Departure Time of Disposition: 00:11 Departure Disposition: Home Clinical Impression: Back pain, Hypertension Condition: Stable Critical Care Time: No Referrals: MARGO ELI [Primary Care Provider] - Additional Instructions: take your medication as prescribed. follow up with primary doctor for further management Prescriptions: Hydrocodone/APAP 5/325 [[place] 5/325 mg] 1 each PO Q12H PRN PRN #6 tablet MDD 2 PRN Reason: Pain
[2018-01-21] MEDS ORDERED: Zofran 4 MG/2 ML VIAL IV ONE (21:24)
[2018-01-21] MEDS ORDERED: MORPHINE SULFATE 2 MG INJ IV ONE (21:24)
[2018-01-21] MEDS ORDERED: Zofran 4 MG/2 ML VIAL ONE (21:29)
[2018-01-21] MEDS ORDERED: MORPHINE SULFATE 2 MG INJ ONE (21:29)
[2018-01-21 21:35] LABS: BASOPHIL % 0.5 % (0.0-0.4); Basophil (Absolute #) 0.05 (0-0.4); Granulocyte Absolute (ANC) 6.31 (1.4-6.9); Granulocytes % 62.7 % (36.0-66.0); Hematocrit 37.8 % (35-47); Hemoglobin 12.3 gm/dl (12.0-16.0); Lymphocyte (Absolute #) 2.28 (1.0-4.6); Lymphocytes % 22.6 % (24.0-44.0); Mean Cell Volume 92.9 fl (78-100); Mean Corpuscular Hemoglobin 30.2 pg (26-32); Mean Corpuscular Hgb Concent. 32.5 g/dl (32-36); Mean Platelet Volume 10.3 fl (6-9.5); Monocyte (Absolute #) 0.83 (0.0-1.3); Monocytes % 8.2 % (0.0-12.0); Platelet Count 263 K/mm3 (150-450); Red Blood Count 4.07 M/mm3 (4.1-5.4); Red Cell Distribution Width 13.6 % (11.5-14.0); White Blood Count 10.1 K/mm3 (4.0-10.5)
[2018-01-21 21:52] LABS: INR 1.07 (0.8-3.0)
[2018-01-21] MEDS ORDERED: VASOTEC I.V. 2.5 MG IV ONE ×2 (21:54→22:02)
[2018-01-21 22:00] LABS: ALBUMIN 4.3 g/dL (3.5-5.0); ANION GAP 14.2 MEQ/L (5-15); BILIRUBIN,TOTAL 0.2 mg/dL (0.2-1.3); Calcium 9.2 mg/dL (8.4-10.2); Creatinine 1 1.12 mg/dL (0.52-1.04); Potassium 4.4 mmol/L (3.5-5.1); Total Protein 7.4 g/dL (6.3-8.2)
[2018-01-21] MEDS ORDERED: Sodium Chloride 0.9% 500 ML 500 ML IV ONE (22:21)
[2018-01-21] MEDS ORDERED: Sodium Chloride 0.9% 1000 ML 1,000 ML ONE (22:23)
[2018-01-21] MEDS ORDERED: Sodium Chloride 0.9% 500 ML 500 ML IV SCH (22:30)
[2018-01-22 00:05] VITALS: BP 143/85
[2018-01-22 00:38] VITALS: PULSE 78; O2SAT 97
--- NOTE | 2018-01-22 09:20 | XRAY ---
Indication: Short of breath and back pain. Elevated d-dimer. Multiple contiguous axial images obtained through the chest using 80 cc Isovue 370 contrast and PE protocol. Comparison: March 03, 2017. There is suboptimal opacification of the pulmonary arteries and mild respiration artifact limiting evaluation for distal pulmonary embolus. No large central pulmonary embolus. Heart is enlarged. Aorta mildly arteriosclerotic without aneurysm/dissection. No pathologic mediastinal/hilar lymphadenopathy. Examination of the lung parenchyma again demonstrates lingular and bibasilar fibrosis/scarring. Stable small left upper lobe calcified granuloma. No suspicious pulmonary mass. Bony thorax intact again with degenerative changes throughout the spine. Limited upper abdomen again demonstrates 4.4 cm right renal cyst, left renal atrophy, and cholecystectomy clips. Impression: 1. Pulmonary embolus evaluation again limited due to suboptimal opacification and respiration artifact. No large central pulmonary was. 2. Stable cardiomegaly, scattered fibrosis/scarring, left upper lobe calcified granuloma, and right renal cyst. Comment: Preliminary interpretation was made by [facility]. No discrepancy. CTDI 30.85
== END 2018-01-22 00:36 | disposition home or self-care (01) ==
LOC: ED 20:55
DX: M54.9 Dorsalgia, unspecified (principal); R06.02 Shortness of breath; I10 Essential (primary) hypertension; Z79.899 Other long term (current) drug therapy
CPT/HCPCS: 36000; 36415; 71260; 80053; 83880; 84484; 85025; 85379; 85610; 93005; 93041; 96360; 96374; 96375; 99284; 99285; J2270; J2405

== ENCOUNTER 2018-07-17 19:07 | Inpatient (IN) | payer MEDICARE, OTHER ==
[2018-07-17] MEDS ORDERED: Sodium Chloride 0.9% 1000 ML 1,000 ML IV SCH (20:15)
--- NOTE | 2018-07-17 20:15 | ERPHSYRPT ---
- History of Present Illness Time Seen by Provider: 07/17/18 20:05 Source: patient Exam Limitations: no limitations Patient Subjective Stated Complaint: pt states she has beenfeeling weak for the past week, increasing today. deies, fever, cough, difficulty urinating or any other symptoms at home Triage Nursing Assessment: pt alert and oriented, ambulates to room with slow steady gait ntoed. respirations nonlabored with lungs cta. abd soft and nontender. pupils equal and reactive. bilat upper and lower ext strength equal. no swelling note to bilat lower ext. peripheral pulses wnl. Physician History: 78-year-old white female arrives with complaint of just feeling weak symptoms going on for one week. She denies any chest pain shortness of breath nausea vomiting abdominal pain. She does state that she had some loose stools about a week ago patient has not had any fevers. She does state that she injured her right wrist hyperextending it several days ago and is having some wrist pain as well Past medical history includes high blood pressure, cataracts, she arthritis Past surgical history includes appendectomy cholecystectomy hysterectomy left wrist surgery, bilateral knee replacement. social history patient denies tobacco alcohol or illicit drug use. Timing/Duration: week(s) (oone week) Severity: moderate Modifying Factors: Improves With: nothing Associated Symptoms: weakness, other (right wrist pain), No nausea, No vomiting , No abdominal pain, No shortness of breath, No heartburn, No diaphoresis, No cough, No chills, No chest pain, No fever, No headaches, No loss of appetite, No malaise, No rash, No syncope, No seizure Allergies/Adverse Reactions: No Known Drug Allergies Allergy (Verified 07/17/18 20:02) Home Medications: Dicyclomine HCl [Bentyl] 10 mg PO DAILY 09/09/14 [History] Atorvastatin Calcium [Lipitor] 10 mg PO HS 11/13/17 [History] Lisinopril 10 mg [Zestril 10 MG] 0 mg PO DAILY 01/21/18 [History] Hx Tetanus, Diphtheria Vaccination/Date Given: Yes Hx Influenza Vaccination/Date Given: Yes Hx Pneumococcal Vaccination/Date Given: Yes Immunizations Up to Date: Yes - Review of Systems Constitutional: Weakness, No Fever, No Chills, No Fatigue, No Lethargy, No Malaise, No Night Sweats, No Weight Loss Eyes: No Symptoms Ears, Nose, & Throat: No Symptoms, No Ear Pain, No Ear Discharge, No Hearing Changes, No Tinnitus, No Nose Pain, No Nose Congestion, No Nose Discharge, No Sinus Drainage, No Epistaxis, No Mouth Pain, No Mouth Swelling, No Loose Teeth, No Throat Pain, No Throat Swelling, No Hoarse, No Painful Swallowing, No Snoring , No Stridor Respiratory: No Cough, No Dyspnea Cardiac: No Chest Pain, No Edema, No Syncope Abdominal/Gastrointestinal: No Abdominal Pain, No Nausea, No Vomiting, No Diarrhea Genitourinary Symptoms: No Dysuria Musculoskeletal: Other (right wrist pain) Skin: No Rash Neurological: No Dizziness, No Focal Weakness, No Sensory Changes Psychological: No Symptoms Endocrine: No Symptoms All Other Systems: Reviewed and Negative - Past Medical History Pertinent Past Medical History: Yes Neurological History: No Pertinent History ENT History: Cataracts Cardiac History: No Pertinent History, Hypertension Respiratory History: No Pertinent History Endocrine Medical History: No Pertinent History Musculoskeletal History: Osteoarthritis GI Medical History: Other History: No Pertinent History Psycho-Social History: No Pertinent History Female Reproductive Disorders: No Pertinent History Other Medical History: R TKA 2002, L 2014 - Past Surgical History Past Surgical History: Yes Neuro Surgical History: No Pertinent History Cardiac: No Pertinent History Respiratory: No Pertinent History Gastrointestinal: Appendectomy, Cholecystectomy Genitourinary: No Pertinent History Musculoskeletal: Joint Replacement, Orthopedic Surgery Female Surgical History: Hysterectomy Other Surgical History: RIGHT KNEE REPLACEMENT IN 2002, SURGERY LEFT WRIST 2002 , LEFT KNEE REPLACEMENT 2014. 2nd rt tka last year - Social History Smoking Status: Former smoker Exposure to second hand smoke: Yes Alcohol Use: None Drug Use: none Patient Lives Alone: No Significant Family History: no pertinent family hx - Nursing Vital Signs Nursing Vital Signs: Initial Vital Signs Temperature 98.5 F 07/17/18 19:55 Pulse Rate 89 07/17/18 19:55 Respiratory Rate 18 07/17/18 19:55 Blood Pressure 197/90 07/17/18 19:55 O2 Sat by Pulse Oximetry 94 L 07/17/18 19:55 Pain Scale Pain Intensity 0 - Physical Exam General Appearance: no apparent distress, alert Eye Exam: PERRL/EOMI, eyes nml inspection Ears, Nose, Throat Exam: normal ENT inspection, TMs normal, pharynx normal, moist mucous membranes Neck Exam: normal inspection, non-tender, supple, full range of motion Respiratory Exam: normal breath sounds, lungs clear, No respiratory distress Cardiovascular Exam: regular rate/rhythm, normal heart sounds, normal peripheral pulses, capillary refill <2 sec Gastrointestinal/Abdomen Exam: soft, normal bowel sounds, No tenderness, No mass Back Exam: normal inspection, normal range of motion, No CVA tenderness, No vertebral tenderness Extremity Exam: normal inspection, normal range of motion, pelvis stable Neurologic Exam: alert, 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, cooperative, 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, normal mood/affect, nml cerebellar function, nml station & gait, sensation nml, No motor deficits Skin Exam: normal color, warm, dry, No rash Lymphatic Exam: No adenopathy SpO2 Interpretation: normal (94%) SpO2: 94 O2 Delivery: Room Air - Course Nursing assessment & vital signs reviewed: Yes EKG Interpreted by Me: RATE (78 bpm), Sinus Rhythm, Left [place] Deviation, Other ( EKG: Sinus rhythm, 78 beats per minute, left axis deviation, incomplete right bundle branch block, left anterior fascicular block, no acute ST or T wave changes, compared to January 21, 2018) - Radiology Exams Right Wrist X-ray Interpretation: Discussed w/ radiologist (x-ray right wrist: 3 view of right wrist unchanged demonstrating osteopenia, proximal carpal row surgical resection, and made orthopedic tach, in moderate/advanced degenerative changes of the first metacarpal multi-angular articulation. No new/acute findings) Chest X-ray Interpretation: Discussed w/ radiologist (Chest x-ray: Impression: Stable nonacute chest with chronic features.) Ordered Tests: Active Orders 24 hr Category Date Time Status EKG-ER Only STAT Care 07/17/18 20:09 Active IV Insertion STAT Care 07/17/18 20:09 Active Splint STAT Care 07/17/18 21:45 Active CHEST 1 VIEW (PORTABLE) Stat Exams 07/17/18 20:10 Completed WRIST (MIN 3 VIEWS) Stat Exams 07/17/18 20:15 Completed CBC W DIFF Stat Lab 07/17/18 20:26 Completed CMP Stat Lab 07/17/18 20:26 Completed CULTURE,URINE Stat Lab 07/17/18 21:25 Received Lactic Acid Stat Lab 07/17/18 20:30 Completed TROPONIN Q3H Lab 07/17/18 20:26 Completed TROPONIN Q3H Lab 07/17/18 23:15 Ordered TROPONIN Q3H Lab 07/18/18 02:15 Ordered TROPONIN Q3H Lab 07/18/18 05:15 Ordered TROPONIN Q3H Lab 07/18/18 08:15 Ordered TSH [TSH, 3RD Generation] Stat Lab 07/17/18 20:26 Completed UA W/RFX UR CULTURE Stat Lab 07/17/18 21:25 Completed Medication Summary Generic Name Dose Route Start Last Admin Trade Name Jacey PRN Reason Stop Dose Admin Sodium Chloride 1,000 mls @ 100 mls/hr 07/17/18 20:15 07/17/18 20:32 Sodium Chloride 0.9% 1000 Ml IV 08/16/18 20:14 100 mls/hr .Q10H OLGA Administration Ceftriaxone Sodium/Dextrose 1 g in 50 mls @ 100 mls/hr 07/17/18 21:42 Rocephin 1 Gm-D5w 50 Ml Bag IV 07/17/18 22:11 STAT STA Lab/Rad Data: Laboratory Result Diagrams 07/17/18 20:26 07/17/18 20:26 Laboratory Results 07/17/18 07/17/18 07/17/18 Range/Units 21:25 20:30 20:26 WBC (4.0-10.5) K/mm3 RBC (4.1-5.4) M/mm3 Hgb (12.0-16.0) gm/dl Hct (35-47) % MCV (78-100) fl MCH (26-32) pg MCHC (32-36) g/dl RDW (11.5-14.0) % Plt Count (150-450) K/mm3 MPV (6-9.5) fl Gran % (36.0-66.0) % Eos # (Auto) (0-0.5) Absolute Lymphs (auto) (1.0-4.6) Absolute Monos (auto) (0.0-1.3) Lymphocytes % (24.0-44.0) % Monocytes % (0.0-12.0) % Eosinophils % (0.00-5.0) % Basophils % (0.0-0.4) % Absolute Granulocytes (1.4-6.9) Basophils # (0-0.4) Sodium (137-145) mmol/L Potassium (3.5-5.1) mmol/L Chloride (98-107) mmol/L Carbon Dioxide (22-30) mmol/L Anion Gap (5-15) MEQ/L BUN (7-17) mg/dL Creatinine (0.52-1.04) mg/dL Estimated GFR ML/MIN Glucose (74-106) mg/dL Lactic Acid 1.0 (0.4-2.0) Calcium (8.4-10.2) mg/dL Total Bilirubin (0.2-1.3) mg/dL AST (14-36) U/L ALT (0-35) U/L Alkaline Phosphatase (38-126) U/L Troponin I (0.000-0.034) ng/mL Serum Total Protein (6.3-8.2) g/dL Albumin (3.5-5.0) g/dL Free T4 1.35 (0.76-1.46) ng/dL TSH 3rd Generation (0.47-4.68) mIU/L Urine Color YELLOW (YELLOW) Urine Appearance SLIGHTLY CLOUDY (CLEAR) Urine pH 5.0 (5-6) Ur Specific [place] 1.023 (1.005-1.025) Urine Protein NEGATIVE (Negative) Urine Ketones NEGATIVE (NEGATIVE) Urine Blood NEGATIVE (0-5) Jerad/ul Urine Nitrite NEGATIVE (NEGATIVE) Urine Bilirubin NEGATIVE (NEGATIVE) Urine Urobilinogen 4 (0-1) mg/dL Ur Leukocyte Esterase MODERATE (NEGATIVE) Urine WBC (Auto) 51-100 (0-5) /HPF Urine RBC (Auto) 3-5 (0-2) /HPF U Epithel Cells (Auto) RARE (FEW) /HPF Urine Bacteria (Auto) RARE (NEGATIVE) /HPF Urine Mucus (Auto) SLIGHT (NEGATIVE) /HPF Urine Culture Reflexed YES (NO) Urine Glucose NEGATIVE (NEGATIVE) mg/dL 07/17/18 07/17/18 07/17/18 Range/Units 20:26 20:26 20:26 WBC (4.0-10.5) K/mm3 RBC (4.1-5.4) M/mm3 Hgb (12.0-16.0) gm/dl Hct (35-47) % MCV (78-100) fl MCH (26-32) pg MCHC (32-36) g/dl RDW (11.5-14.0) % Plt Count (150-450) K/mm3 MPV (6-9.5) fl Gran % (36.0-66.0) % Eos # (Auto) (0-0.5) Absolute Lymphs (auto) (1.0-4.6) Absolute Monos (auto) (0.0-1.3) Lymphocytes % (24.0-44.0) % Monocytes % (0.0-12.0) % Eosinophils % (0.00-5.0) % Basophils % (0.0-0.4) % Absolute Granulocytes (1.4-6.9) Basophils # (0-0.4) Sodium 142 (137-145) mmol/L Potassium 3.9 (3.5-5.1) mmol/L Chloride 105 (98-107) mmol/L Carbon Dioxide 28 (22-30) mmol/L Anion Gap 13.4 (5-15) MEQ/L BUN 23 H (7-17) mg/dL Creatinine 0.97 (0.52-1.04) mg/dL Estimated GFR 59.2 ML/MIN Glucose 148 H (74-106) mg/dL Lactic Acid (0.4-2.0) Calcium 9.0 (8.4-10.2) mg/dL Total Bilirubin 0.30 (0.2-1.3) mg/dL AST 15 (14-36) U/L ALT 12 (0-35) U/L Alkaline Phosphatase 72 (38-126) U/L Troponin I < 0.012 (0.000-0.034) ng/mL Serum Total Protein 7.1 (6.3-8.2) g/dL Albumin 3.6 (3.5-5.0) g/dL Free T4 (0.76-1.46) ng/dL TSH 3rd Generation 0.715 (0.47-4.68) mIU/L Urine Color (YELLOW) Urine Appearance (CLEAR) Urine pH (5-6) Ur Specific [place] (1.005-1.025) Urine Protein (Negative) Urine Ketones (NEGATIVE) Urine Blood (0-5) Jerad/ul Urine Nitrite (NEGATIVE) Urine Bilirubin (NEGATIVE) Urine Urobilinogen (0-1) mg/dL Ur Leukocyte Esterase (NEGATIVE) Urine WBC (Auto) (0-5) /HPF Urine RBC (Auto) (0-2) /HPF U Epithel Cells (Auto) (FEW) /HPF Urine Bacteria (Auto) (NEGATIVE) /HPF Urine Mucus (Auto) (NEGATIVE) /HPF Urine Culture Reflexed (NO) Urine Glucose (NEGATIVE) mg/dL 07/17/18 Range/Units 20:26 WBC 12.0 H (4.0-10.5) K/mm3 RBC 3.84 L (4.1-5.4) M/mm3 Hgb 11.4 L (12.0-16.0) gm/dl Hct 36.0 (35-47) % MCV 93.8 (78-100) fl MCH 29.6 (26-32) pg MCHC 31.7 L (32-36) g/dl RDW 13.2 (11.5-14.0) % Plt Count 262 (150-450) K/mm3 MPV 9.8 H (6-9.5) fl Gran % 69.8 H (36.0-66.0) % Eos # (Auto) 0.68 H (0-0.5) Absolute Lymphs (auto) 1.68 (1.0-4.6) Absolute Monos (auto) 1.21 (0.0-1.3) Lymphocytes % 14.0 L (24.0-44.0) % Monocytes % 10.1 (0.0-12.0) % Eosinophils % 5.7 H (0.00-5.0) % Basophils % 0.4 (0.0-0.4) % Absolute Granulocytes 8.35 H (1.4-6.9) Basophils # 0.05 (0-0.4) Sodium (137-145) mmol/L Potassium (3.5-5.1) mmol/L Chloride (98-107) mmol/L Carbon Dioxide (22-30) mmol/L Anion Gap (5-15) MEQ/L BUN (7-17) mg/dL Creatinine (0.52-1.04) mg/dL Estimated GFR ML/MIN Glucose (74-106) mg/dL Lactic Acid (0.4-2.0) Calcium (8.4-10.2) mg/dL Total Bilirubin (0.2-1.3) mg/dL AST (14-36) U/L ALT (0-35) U/L Alkaline Phosphatase (38-126) U/L Troponin I (0.000-0.034) ng/mL Serum Total Protein (6.3-8.2) g/dL Albumin (3.5-5.0) g/dL Free T4 (0.76-1.46) ng/dL TSH 3rd Generation (0.47-4.68) mIU/L Urine Color (YELLOW) Urine Appearance (CLEAR) Urine pH (5-6) Ur Specific [place] (1.005-1.025) Urine Protein (Negative) Urine Ketones (NEGATIVE) Urine Blood (0-5) Jerad/ul Urine Nitrite (NEGATIVE) Urine Bilirubin (NEGATIVE) Urine Urobilinogen (0-1) mg/dL Ur Leukocyte Esterase (NEGATIVE) Urine WBC (Auto) (0-5) /HPF Urine RBC (Auto) (0-2) /HPF U Epithel Cells (Auto) (FEW) /HPF Urine Bacteria (Auto) (NEGATIVE) /HPF Urine Mucus (Auto) (NEGATIVE) /HPF Urine Culture Reflexed (NO) Urine Glucose (NEGATIVE) mg/dL - Progress Progress: improved Progress Note: 07/17/18 21:[address] I she states she feels tired and weak and has no energy.she does not feel like she will manage well at home. Will go ahead and discuss case with Dr. Moreno for possible admission. Will start patient on Rocephin. 07/17/18 21:43 07/17/18 21:44 I discussed the patient's case with Dr. Moreno,, will go ahead and place patient on observation telemetry will provide IV normal saline 100 L per hour continue Rocephin continue telemetry. - Departure Departure Disposition: Observation Clinical Impression: Weakness UTI (urinary tract infection) Qualifiers: Urinary tract infection type: site unspecified Hematuria presence: without hematuria Qualified Code(s): N39.0 - Urinary tract infection, site not specified Strain of right wrist Qualifiers: Encounter type: initial encounter Qualified Code(s): S66.911A - Strain of unspecified muscle, fascia and tendon at wrist and hand level, right hand, initial encounter Condition: Fair Critical Care Time: No Referrals: ARA RODRIGUES MD [Primary Care Provider] -
[2018-07-17 20:30] LABS: BASOPHIL % 0.4 % (0.0-0.4); Basophil (Absolute #) 0.05 (0-0.4); Eosinophil % 5.7 % (0.00-5.0); Eosinophil (Absolute #) 0.68 (0-0.5); Granulocyte Absolute (ANC) 8.35 (1.4-6.9); Granulocytes % 69.8 % (36.0-66.0); Hemoglobin 11.4 gm/dl (12.0-16.0); Lymphocyte (Absolute #) 1.68 (1.0-4.6); Mean Cell Volume 93.8 fl (78-100); Mean Corpuscular Hgb Concent. 31.7 g/dl (32-36); Mean Platelet Volume 9.8 fl (6-9.5); Monocyte (Absolute #) 1.21 (0.0-1.3); Monocytes % 10.1 % (0.0-12.0); Platelet Count 262 K/mm3 (150-450); Red Blood Count 3.84 M/mm3 (4.1-5.4); Red Cell Distribution Width 13.2 % (11.5-14.0)
[2018-07-17 20:31] LABS: Mean Corpuscular Hemoglobin 29.6 pg (26-32)
[2018-07-17] MEDS ORDERED: Sodium Chloride 0.9% 1000 ML 1,000 ML ONE (20:31)
[2018-07-17 20:41] LABS: ALBUMIN 3.6 g/dL (3.5-5.0); ANION GAP 13.4 MEQ/L (5-15); BILIRUBIN,TOTAL 0.3 mg/dL (0.2-1.3); Creatinine 1 0.97 mg/dL (0.52-1.04); Potassium 3.9 mmol/L (3.5-5.1); Total Protein 7.1 g/dL (6.3-8.2)
[2018-07-17 21:33] LABS: Appearance SLIGHTLY CLOUDY (CLEAR); Bacteria RARE /HPF (NEGATIVE); Bilirubin NEGATIVE (NEGATIVE); Blood NEGATIVE Ery/ul (0-5); Epithelial Cells RARE /HPF (FEW); Glucose NEGATIVE (NEGATIVE); Ketones NEGATIVE (NEGATIVE); Leukocyte Esterase MODERATE (NEGATIVE); Mucus SLIGHT /HPF (NEGATIVE); Nitrite NEGATIVE (NEGATIVE); Protein,Urine Dip NEGATIVE (Negative); Specific Gravity 1.023 (1.005-1.025); Urobilinogen 4 mg/dL (0-1); WBC 51-100 /HPF (0-5)
--- NOTE | 2018-07-17 21:34 | XRAY ---
Indication: Weakness. Comparison: October 12, 2017. Portable apical lordotic chest remains clear again with incidental calcified granulomas and focal eventration of the right hemidiaphragm. Heart is not enlarged. Bony thorax intact again with mild degenerative changes. No new/acute findings. Impression: Stable nonacute chest with chronic features.
--- NOTE | 2018-07-17 21:36 | XRAY ---
Indication: Chronic pain. Comparison: November 13, 2017. 3 views of the right wrist unchanged again demonstrating osteopenia, proximal carpal row surgical resection, hamate orthopedic tack, and moderate/advanced degenerative changes of the 1st metacarpal multangular articulation. No new/acute findings.
[2018-07-17] MEDS ORDERED: ROCEPHIN 1 Gm-D5w 50 ml Bag** 1 G/50 ML IVPB IV STA (21:42)
[2018-07-17] MEDS ORDERED: ROCEPHIN 1 Gm-D5w 50 ml Bag** 1 G/50 ML IVPB IV ONE (21:55)
[2018-07-17] MEDS ORDERED: TYLENOL 325 MG PO PRN (22:42)
[2018-07-18] MEDS: Sodium Chloride 0.9% 1000 ML 1,000 ML IV SCH ×2 (05:18→18:17)
[2018-07-18 09:34] LABS: BASOPHIL % 0.4 % (0.0-0.4); Basophil (Absolute #) 0.05 (0-0.4); Eosinophil % 6.2 % (0.00-5.0); Eosinophil (Absolute #) 0.69 (0-0.5); Granulocyte Absolute (ANC) 7.74 (1.4-6.9); Granulocytes % 69.6 % (36.0-66.0); Hematocrit 35.4 % (35-47); Hemoglobin 11.3 gm/dl (12.0-16.0); Lymphocyte (Absolute #) 1.63 (1.0-4.6); Lymphocytes % 14.6 % (24.0-44.0); Mean Cell Volume 93.4 fl (78-100); Mean Corpuscular Hemoglobin 29.8 pg (26-32); Mean Corpuscular Hgb Concent. 31.9 g/dl (32-36); Mean Platelet Volume 9.8 fl (6-9.5); Monocyte (Absolute #) 1.03 (0.0-1.3); Monocytes % 9.2 % (0.0-12.0); Platelet Count 282 K/mm3 (150-450); Red Blood Count 3.79 M/mm3 (4.1-5.4); Red Cell Distribution Width 13.2 % (11.5-14.0); White Blood Count 11.1 K/mm3 (4.0-10.5)
[2018-07-18 09:48] LABS: ALBUMIN 3.7 g/dL (3.5-5.0); ALKALINE PHOSPHATASE 62 U/L (38-126); ANION GAP 13.9 MEQ/L (5-15); BLOOD UREA NITROGEN 19 mg/dL (7-17); CHLORIDE 105 mmol/L (98-107); Calcium 8.8 mg/dL (8.4-10.2); Carbon Dioxide 27 mmol/L (22-30); Creatinine 1 0.85 mg/dL (0.52-1.04); Glucose 167 mg/dL (74-106); Potassium 3.7 mmol/L (3.5-5.1); SGOT/AST 16 U/L (14-36); SGPT/ALT 13 U/L (0-35); SODIUM 141 mmol/L (137-145); Total Protein 7.3 g/dL (6.3-8.2)
--- NOTE | 2018-07-18 13:17 | PCM.SSS ---
History of Present Illness - Chief Complaint Chief Complaint: weakness History of Present Illness: is a 78 year old female pt of Dr. Bravo in with PMHx HTN, OA, cataracts who came to ER c/o weakness and R wrist pain. She was found to have a UTI and started on IV rocephin. Her CXR was neg. Wrist XR with changes from remote surgery but acutely negative, dx with wrist strain. She had some elevated BP initially, first was 197/90, then 175/86. Since then her systolic BPs hae been in the 150s-160s/60s-90s. She states that she is feeling "fine" today, much better than yesterday. She had been feeling weak approx 1 wk. Denied fever. Had loose stool 1 wk ago. She tells me, though, that she had no abd pain on admission but this morning has LLQ pain. She has been having it approx 2 wk, 2-8/10, dull and constant. Took align probiotic x 1 wk with some relief. Pain is worse after BM (which is when her pain started this morning). She does have known hx diverticulitis, and she discussed her pain in the past with Dr. Bravo. Will go ahead with CT abd/pelvis, and if no acute findings will plan on sending pt home on po antibiotic today. Urine culture is still pending at [facility]. - Review of Systems Constitutional: Weakness, No Fever Abdominal/Gastrointestinal: Abdominal Pain, Diarrhea Medications & Allergies Home Medications: Home Medication List Dicyclomine HCl [Bentyl] 10 mg PO DAILY 09/09/14 [History Confirmed 07/17/18] Atorvastatin Calcium [Lipitor] 10 mg PO HS 11/13/17 [History Confirmed 07/17/18] Lisinopril 10 mg [Zestril 10 MG] 10 mg PO DAILY PRN PRN 01/21/18 [History Confirmed 07/17/18] Cephalexin Mh 500 mg [Keflex 500 mg] 500 mg PO QID #20 capsule 07/18/18 [Rx] Allergies/Adverse Reactions: Allergies Allergy/AdvReac Type Severity Reaction Status Date / Time No Known Drug Allergies Allergy Verified 07/17/18 20:02 - Past Medical History Past Medical History: Yes Neurological History: No Pertinent History ENT History: Cataracts Cardiac History: No Pertinent History, Hypertension Respiratory History: No Pertinent History Endocrine Medical History: No Pertinent History Musculoskelatal History: Osteoarthritis GI Medical History: Diverticulosis, Other History: No Pertinent History Pyscho-Social History: No Pertinent History Reproductive Disorders: No Pertinent History Comment: R TKA 2002, L 2014 - Female History Are you now?: No - Past Surgical History Past Surgical History: Yes Neuro Surgical History: No Pertinent History Cardiac History: No Pertinent History Respiratory Surgery: No Pertinent History GI Surgical History: Appendectomy, Cholecystectomy Genitourinary Surgical Hx: No Pertinent History Musculskeletal Surgical Hx: Joint Replacement, Orthopedic Surgery Female Surgical History: Hysterectomy Other Surgical History: RIGHT KNEE REPLACEMENT IN 2002, SURGERY LEFT WRIST 2002 , LEFT KNEE REPLACEMENT 2014. 2nd rt tka last year - Social History Smoking Status: Former smoker Exposure to second hand smoke: Yes Alcohol: None Drug Use: none Significant Family History: no pertinent family hx - Physical Exam Vital Signs: Vital Signs - 24 hr Temp Pulse Resp BP Pulse Ox 07/18/18 07:18 98.2 F 76 19 154/66 93 L 07/18/18 04:00 93 L 07/18/18 02:59 98.2 F 84 19 152/68 95 07/17/18 23:32 98.5 F 85 16 156/93 94 L 07/17/18 23:15 98.5 F 85 16 156/93 94 L 07/17/18 22:20 85 16 156/93 94 L 07/17/18 21:47 94 L 07/17/18 21:21 87 18 175/86 95 07/17/18 19:55 98.5 F 89 18 197/90 94 L General Appearance: no apparent distress, alert, obese Neurologic Exam: 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, cooperative Eye Exam: eyes nml inspection Ears, Nose, Throat Exam: moist mucous membranes Neck Exam: normal inspection, non-tender, No lymphadenopathy Respiratory Exam: normal breath sounds, lungs clear, No crackles/rales, No rhonchi, No wheezing Cardiovascular Exam: regular rate/rhythm, normal heart sounds, No murmur Gastrointestinal/Abdomen Exam: soft, normal bowel sounds, tenderness (LLQ), No distention, No mass, No guarding, No rebound Extremity Exam: normal inspection, No pedal edema, No swelling Skin Exam: normal color, warm, dry, No rash Results - Labs Lab/Micro Results: Lab Results-Last 24 Hours 07/17/18 07/17/18 07/17/18 Range/Units 20:26 20:26 20:26 WBC 12.0 H (4.0-10.5) K/mm3 RBC 3.84 L (4.1-5.4) M/mm3 Hgb 11.4 L (12.0-16.0) gm/dl Hct 36.0 (35-47) % MCV 93.8 (78-100) fl MCH 29.6 (26-32) pg MCHC 31.7 L (32-36) g/dl RDW 13.2 (11.5-14.0) % Plt Count 262 (150-450) K/mm3 MPV 9.8 H (6-9.5) fl Gran % 69.8 H (36.0-66.0) % Eos # (Auto) 0.68 H (0-0.5) Absolute Lymphs (auto) 1.68 (1.0-4.6) Absolute Monos (auto) 1.21 (0.0-1.3) Lymphocytes % 14.0 L (24.0-44.0) % Monocytes % 10.1 (0.0-12.0) % Eosinophils % 5.7 H (0.00-5.0) % Basophils % 0.4 (0.0-0.4) % Absolute Granulocytes 8.35 H (1.4-6.9) Basophils # 0.05 (0-0.4) Sodium 142 (137-145) mmol/L Potassium 3.9 (3.5-5.1) mmol/L Chloride 105 (98-107) mmol/L Carbon Dioxide 28 (22-30) mmol/L Anion Gap 13.4 (5-15) MEQ/L BUN 23 H (7-17) mg/dL Creatinine 0.97 (0.52-1.04) mg/dL Estimated GFR 59.2 ML/MIN Glucose 148 H (74-106) mg/dL Lactic Acid (0.4-2.0) Calcium 9.0 (8.4-10.2) mg/dL Total Bilirubin 0.30 (0.2-1.3) mg/dL AST 15 (14-36) U/L ALT 12 (0-35) U/L Alkaline Phosphatase 72 (38-126) U/L Troponin I < 0.012 (0.000-0.034) ng/mL Serum Total Protein 7.1 (6.3-8.2) g/dL Albumin 3.6 (3.5-5.0) g/dL Free T4 (0.76-1.46) ng/dL TSH 3rd Generation (0.47-4.68) mIU/L Urine Color (YELLOW) Urine Appearance (CLEAR) Urine pH (5-6) Ur Specific [place] (1.005-1.025) Urine Protein (Negative) Urine Ketones (NEGATIVE) Urine Blood (0-5) Jerad/ul Urine Nitrite (NEGATIVE) Urine Bilirubin (NEGATIVE) Urine Urobilinogen (0-1) mg/dL Ur Leukocyte Esterase (NEGATIVE) Urine WBC (Auto) (0-5) /HPF Urine RBC (Auto) (0-2) /HPF U Epithel Cells (Auto) (FEW) /HPF Urine Bacteria (Auto) (NEGATIVE) /HPF Urine Mucus (Auto) (NEGATIVE) /HPF Urine Culture Reflexed (NO) Urine Glucose (NEGATIVE) mg/dL 07/17/18 07/17/18 07/17/18 Range/Units 20:26 20:26 20:30 WBC (4.0-10.5) K/mm3 RBC (4.1-5.4) M/mm3 Hgb (12.0-16.0) gm/dl Hct (35-47) % MCV (78-100) fl MCH (26-32) pg MCHC (32-36) g/dl RDW (11.5-14.0) % Plt Count (150-450) K/mm3 MPV (6-9.5) fl Gran % (36.0-66.0) % Eos # (Auto) (0-0.5) Absolute Lymphs (auto) (1.0-4.6) Absolute Monos (auto) (0.0-1.3) Lymphocytes % (24.0-44.0) % Monocytes % (0.0-12.0) % Eosinophils % (0.00-5.0) % Basophils % (0.0-0.4) % Absolute Granulocytes (1.4-6.9) Basophils # (0-0.4) Sodium (137-145) mmol/L Potassium (3.5-5.1) mmol/L Chloride (98-107) mmol/L Carbon Dioxide (22-30) mmol/L Anion Gap (5-15) MEQ/L BUN (7-17) mg/dL Creatinine (0.52-1.04) mg/dL Estimated GFR ML/MIN Glucose (74-106) mg/dL Lactic Acid 1.0 (0.4-2.0) Calcium (8.4-10.2) mg/dL Total Bilirubin (0.2-1.3) mg/dL AST (14-36) U/L ALT (0-35) U/L Alkaline Phosphatase (38-126) U/L Troponin I (0.000-0.034) ng/mL Serum Total Protein (6.3-8.2) g/dL Albumin (3.5-5.0) g/dL Free T4 1.35 (0.76-1.46) ng/dL TSH 3rd Generation 0.715 (0.47-4.68) mIU/L Urine Color (YELLOW) Urine Appearance (CLEAR) Urine pH (5-6) Ur Specific [place] (1.005-1.025) Urine Protein (Negative) Urine Ketones (NEGATIVE) Urine Blood (0-5) Jerad/ul Urine Nitrite (NEGATIVE) Urine Bilirubin (NEGATIVE) Urine Urobilinogen (0-1) mg/dL Ur Leukocyte Esterase (NEGATIVE) Urine WBC (Auto) (0-5) /HPF Urine RBC (Auto) (0-2) /HPF U Epithel Cells (Auto) (FEW) /HPF Urine Bacteria (Auto) (NEGATIVE) /HPF Urine Mucus (Auto) (NEGATIVE) /HPF Urine Culture Reflexed (NO) Urine Glucose (NEGATIVE) mg/dL 07/17/18 07/18/18 07/18/18 Range/Units 21:25 09:30 09:30 WBC 11.1 H (4.0-10.5) K/mm3 RBC 3.79 L (4.1-5.4) M/mm3 Hgb 11.3 L (12.0-16.0) gm/dl Hct 35.4 (35-47) % MCV 93.4 (78-100) fl MCH 29.8 (26-32) pg MCHC 31.9 L (32-36) g/dl RDW 13.2 (11.5-14.0) % Plt Count 282 (150-450) K/mm3 MPV 9.8 H (6-9.5) fl Gran % 69.6 H (36.0-66.0) % Eos # (Auto) 0.69 H (0-0.5) Absolute Lymphs (auto) 1.63 (1.0-4.6) Absolute Monos (auto) 1.03 (0.0-1.3) Lymphocytes % 14.6 L (24.0-44.0) % Monocytes % 9.2 (0.0-12.0) % Eosinophils % 6.2 H (0.00-5.0) % Basophils % 0.4 (0.0-0.4) % Absolute Granulocytes 7.74 H (1.4-6.9) Basophils # 0.05 (0-0.4) Sodium 141 (137-145) mmol/L Potassium 3.7 (3.5-5.1) mmol/L Chloride 105 (98-107) mmol/L Carbon Dioxide 27 (22-30) mmol/L Anion Gap 13.9 (5-15) MEQ/L BUN 19 H (7-17) mg/dL Creatinine 0.85 (0.52-1.04) mg/dL Estimated GFR > 60.0 ML/MIN Glucose 167 H (74-106) mg/dL Lactic Acid (0.4-2.0) Calcium 8.8 (8.4-10.2) mg/dL Total Bilirubin 0.50 (0.2-1.3) mg/dL AST 16 (14-36) U/L ALT 13 (0-35) U/L Alkaline Phosphatase 62 (38-126) U/L Troponin I (0.000-0.034) ng/mL Serum Total Protein 7.3 (6.3-8.2) g/dL Albumin 3.7 (3.5-5.0) g/dL Free T4 (0.76-1.46) ng/dL TSH 3rd Generation (0.47-4.68) mIU/L Urine Color YELLOW (YELLOW) Urine Appearance SLIGHTLY CLOUDY (CLEAR) Urine pH 5.0 (5-6) Ur Specific [place] 1.023 (1.005-1.025) Urine Protein NEGATIVE (Negative) Urine Ketones NEGATIVE (NEGATIVE) Urine Blood NEGATIVE (0-5) Jerad/ul Urine Nitrite NEGATIVE (NEGATIVE) Urine Bilirubin NEGATIVE (NEGATIVE) Urine Urobilinogen 4 (0-1) mg/dL Ur Leukocyte Esterase MODERATE (NEGATIVE) Urine WBC (Auto) 51-100 (0-5) /HPF Urine RBC (Auto) 3-5 (0-2) /HPF U Epithel Cells (Auto) RARE (FEW) /HPF Urine Bacteria (Auto) RARE (NEGATIVE) /HPF Urine Mucus (Auto) SLIGHT (NEGATIVE) /HPF Urine Culture Reflexed YES (NO) Urine Glucose NEGATIVE (NEGATIVE) mg/dL - Radiology Impressions Radiology Exams & Impressions: Radiology Procedures Category Date Time Status CHEST 1 VIEW (PORTABLE) Stat Exams 07/17/18 20:10 Completed WRIST (MIN 3 VIEWS) Stat Exams 07/17/18 20:15 Completed Assessment/Plan (1) UTI (urinary tract infection) Current Visit: Yes Status: Acute Qualifiers: Urinary tract infection type: site unspecified Hematuria presence: without hematuria Qualified Code(s): N39.0 - Urinary tract infection, site not specified Assessment & Plan: Much better, on day #2 IV rocephin. Will send her home later today on po keflex. UCx is pending at [facility]. Will send summary of visit to Dr. Bravo. Code(s): N39.0 - URINARY TRACT INFECTION, SITE NOT SPECIFIED (2) Abdominal pain Current Visit: Yes Status: Acute Qualifiers: Abdominal location: left lower quadrant Qualified Code(s): R10.32 - Left lower quadrant pain Assessment & Plan: Most likely related to diverticulitis, but will do CT scan today while pt is in hospital. Code(s): R10.9 - UNSPECIFIED ABDOMINAL PAIN (3) Strain of right wrist Current Visit: Yes Status: Acute Qualifiers: Encounter type: initial encounter Qualified Code(s): S66.911A - Strain of unspecified muscle, fascia and tendon at wrist and hand level, right hand, initial encounter Code(s): S66.911A - STRAIN OF UNSP MUSC/FASC/TEND AT WRS/HND LV, R HAND, INIT (4) Weak Current Visit: Yes Status: Resolved Code(s): R53.1 - WEAKNESS Hospital Summary - Hospital Course Hospital Course: 78 yo female pt of Dr. Bravo admitted through ER with weakness; found to have UTI. She is feeling much better today, although today she complains of some abd pain which has been present x 2 wks (but was not present on admission). Will do CT prior to pt leaving today. Will send pt home on keflex; ucx is pending. F/u with PCP in 1 wk. - Vitals & Intake/Output Vital Signs: Vital Signs Temperature 98.2 F 07/18/18 07:18 Pulse Rate 76 07/18/18 07:18 Respiratory Rate 07/18/18 07:18 Blood Pressure 154/66 07/18/18 07:18 O2 Sat by Pulse Oximetry 93 L 07/18/18 07:18 Intake & Output: Intake & Output 07/16/18 07/17/18 07/18/18 07/19/18 11:59 11:59 11:59 11:59 Intake Total 1059 Output Total 950 Balance 109 Weight 112.037 kg - Lab Result Diagrams: 07/18/18 09:30 07/18/18 09:30 Lab Results-Last 24 Hrs: Lab Results-Last 24 Hours 07/17/18 07/17/18 07/17/18 Range/Units 20:26 20:26 20:26 WBC 12.0 H (4.0-10.5) K/mm3 RBC 3.84 L (4.1-5.4) M/mm3 Hgb 11.4 L (12.0-16.0) gm/dl Hct 36.0 (35-47) % MCV 93.8 (78-100) fl MCH 29.6 (26-32) pg MCHC 31.7 L (32-36) g/dl RDW 13.2 (11.5-14.0) % Plt Count 262 (150-450) K/mm3 MPV 9.8 H (6-9.5) fl Gran % 69.8 H (36.0-66.0) % Eos # (Auto) 0.68 H (0-0.5) Absolute Lymphs (auto) 1.68 (1.0-4.6) Absolute Monos (auto) 1.21 (0.0-1.3) Lymphocytes % 14.0 L (24.0-44.0) % Monocytes % 10.1 (0.0-12.0) % Eosinophils % 5.7 H (0.00-5.0) % Basophils % 0.4 (0.0-0.4) % Absolute Granulocytes 8.35 H (1.4-6.9) Basophils # 0.05 (0-0.4) Sodium 142 (137-145) mmol/L Potassium 3.9 (3.5-5.1) mmol/L Chloride 105 (98-107) mmol/L Carbon Dioxide 28 (22-30) mmol/L Anion Gap 13.4 (5-15) MEQ/L BUN 23 H (7-17) mg/dL Creatinine 0.97 (0.52-1.04) mg/dL Estimated GFR 59.2 ML/MIN Glucose 148 H (74-106) mg/dL Lactic Acid (0.4-2.0) Calcium 9.0 (8.4-10.2) mg/dL Total Bilirubin 0.30 (0.2-1.3) mg/dL AST 15 (14-36) U/L ALT 12 (0-35) U/L Alkaline Phosphatase 72 (38-126) U/L Troponin I < 0.012 (0.000-0.034) ng/mL Serum Total Protein 7.1 (6.3-8.2) g/dL Albumin 3.6 (3.5-5.0) g/dL Free T4 (0.76-1.46) ng/dL TSH 3rd Generation (0.47-4.68) mIU/L Urine Color (YELLOW) Urine Appearance (CLEAR) Urine pH (5-6) Ur Specific [place] (1.005-1.025) Urine Protein (Negative) Urine Ketones (NEGATIVE) Urine Blood (0-5) Jerad/ul Urine Nitrite (NEGATIVE) Urine Bilirubin (NEGATIVE) Urine Urobilinogen (0-1) mg/dL Ur Leukocyte Esterase (NEGATIVE) Urine WBC (Auto) (0-5) /HPF Urine RBC (Auto) (0-2) /HPF U Epithel Cells (Auto) (FEW) /HPF Urine Bacteria (Auto) (NEGATIVE) /HPF Urine Mucus (Auto) (NEGATIVE) /HPF Urine Culture Reflexed (NO) Urine Glucose (NEGATIVE) mg/dL 07/17/18 07/17/18 07/17/18 Range/Units 20:26 20:26 20:30 WBC (4.0-10.5) K/mm3 RBC (4.1-5.4) M/mm3 Hgb (12.0-16.0) gm/dl Hct (35-47) % MCV (78-100) fl MCH (26-32) pg MCHC (32-36) g/dl RDW (11.5-14.0) % Plt Count (150-450) K/mm3 MPV (6-9.5) fl Gran % (36.0-66.0) % Eos # (Auto) (0-0.5) Absolute Lymphs (auto) (1.0-4.6) Absolute Monos (auto) (0.0-1.3) Lymphocytes % (24.0-44.0) % Monocytes % (0.0-12.0) % Eosinophils % (0.00-5.0) % Basophils % (0.0-0.4) % Absolute Granulocytes (1.4-6.9) Basophils # (0-0.4) Sodium (137-145) mmol/L Potassium (3.5-5.1) mmol/L Chloride (98-107) mmol/L Carbon Dioxide (22-30) mmol/L Anion Gap (5-15) MEQ/L BUN (7-17) mg/dL Creatinine (0.52-1.04) mg/dL Estimated GFR ML/MIN Glucose (74-106) mg/dL Lactic Acid 1.0 (0.4-2.0) Calcium (8.4-10.2) mg/dL Total Bilirubin (0.2-1.3) mg/dL AST (14-36) U/L ALT (0-35) U/L Alkaline Phosphatase (38-126) U/L Troponin I (0.000-0.034) ng/mL Serum Total Protein (6.3-8.2) g/dL Albumin (3.5-5.0) g/dL Free T4 1.35 (0.76-1.46) ng/dL TSH 3rd Generation 0.715 (0.47-4.68) mIU/L Urine Color (YELLOW) Urine Appearance (CLEAR) Urine pH (5-6) Ur Specific [place] (1.005-1.025) Urine Protein (Negative) Urine Ketones (NEGATIVE) Urine Blood (0-5) Jerad/ul Urine Nitrite (NEGATIVE) Urine Bilirubin (NEGATIVE) Urine Urobilinogen (0-1) mg/dL Ur Leukocyte Esterase (NEGATIVE) Urine WBC (Auto) (0-5) /HPF Urine RBC (Auto) (0-2) /HPF U Epithel Cells (Auto) (FEW) /HPF Urine Bacteria (Auto) (NEGATIVE) /HPF Urine Mucus (Auto) (NEGATIVE) /HPF Urine Culture Reflexed (NO) Urine Glucose (NEGATIVE) mg/dL 07/17/18 07/18/18 07/18/18 Range/Units 21:25 09:30 09:30 WBC 11.1 H (4.0-10.5) K/mm3 RBC 3.79 L (4.1-5.4) M/mm3 Hgb 11.3 L (12.0-16.0) gm/dl Hct 35.4 (35-47) % MCV 93.4 (78-100) fl MCH 29.8 (26-32) pg MCHC 31.9 L (32-36) g/dl RDW 13.2 (11.5-14.0) % Plt Count 282 (150-450) K/mm3 MPV 9.8 H (6-9.5) fl Gran % 69.6 H (36.0-66.0) % Eos # (Auto) 0.69 H (0-0.5) Absolute Lymphs (auto) 1.63 (1.0-4.6) Absolute Monos (auto) 1.03 (0.0-1.3) Lymphocytes % 14.6 L (24.0-44.0) % Monocytes % 9.2 (0.0-12.0) % Eosinophils % 6.2 H (0.00-5.0) % Basophils % 0.4 (0.0-0.4) % Absolute Granulocytes 7.74 H (1.4-6.9) Basophils # 0.05 (0-0.4) Sodium 141 (137-145) mmol/L Potassium 3.7 (3.5-5.1) mmol/L Chloride 105 (98-107) mmol/L Carbon Dioxide 27 (22-30) mmol/L Anion Gap 13.9 (5-15) MEQ/L BUN 19 H (7-17) mg/dL Creatinine 0.85 (0.52-1.04) mg/dL Estimated GFR > 60.0 ML/MIN Glucose 167 H (74-106) mg/dL Lactic Acid (0.4-2.0) Calcium 8.8 (8.4-10.2) mg/dL Total Bilirubin 0.50 (0.2-1.3) mg/dL AST 16 (14-36) U/L ALT 13 (0-35) U/L Alkaline Phosphatase 62 (38-126) U/L Troponin I (0.000-0.034) ng/mL Serum Total Protein 7.3 (6.3-8.2) g/dL Albumin 3.7 (3.5-5.0) g/dL Free T4 (0.76-1.46) ng/dL TSH 3rd Generation (0.47-4.68) mIU/L Urine Color YELLOW (YELLOW) Urine Appearance SLIGHTLY CLOUDY (CLEAR) Urine pH 5.0 (5-6) Ur Specific [place] 1.023 (1.005-1.025) Urine Protein NEGATIVE (Negative) Urine Ketones NEGATIVE (NEGATIVE) Urine Blood NEGATIVE (0-5) Jerad/ul Urine Nitrite NEGATIVE (NEGATIVE) Urine Bilirubin NEGATIVE (NEGATIVE) Urine Urobilinogen 4 (0-1) mg/dL Ur Leukocyte Esterase MODERATE (NEGATIVE) Urine WBC (Auto) 51-100 (0-5) /HPF Urine RBC (Auto) 3-5 (0-2) /HPF U Epithel Cells (Auto) RARE (FEW) /HPF Urine Bacteria (Auto) RARE (NEGATIVE) /HPF Urine Mucus (Auto) SLIGHT (NEGATIVE) /HPF Urine Culture Reflexed YES (NO) Urine Glucose NEGATIVE (NEGATIVE) mg/dL - Radiology Exams Ordered Rad Exams-Entire Visit: Radiology Procedures Category Date Time Status CHEST 1 VIEW (PORTABLE) Stat Exams 07/17/18 20:10 Completed WRIST (MIN 3 VIEWS) Stat Exams 07/17/18 20:15 Completed - Discharge Disposition: Home, Self-Care Condition: Good Prescriptions: New Cephalexin Mh 500 mg [Keflex 500 mg] 500 mg PO QID #20 capsule Continue Dicyclomine HCl [Bentyl] 10 mg PO DAILY Atorvastatin Calcium [Lipitor] 10 mg PO HS Lisinopril 10 mg [Zestril 10 MG] 10 mg PO DAILY PRN PRN PRN Reason: Elevated Blood Pressure Follow up with: ARA BRAVO MD [Primary Care Provider] - 1 Week
[2018-07-18] MEDS ORDERED: ROCEPHIN 1 Gm-D5w 50 ml Bag** 1 G/50 ML IVPB IV SCH ×2 (14:16→22:00)
[2018-07-18] MEDS ORDERED: Zestril 10 MG PO PRN (15:03)
[2018-07-18] MEDS: FLAGYL 500 MG IVPB 500 MG/100 ML BAG IV SCH (18:17)
[2018-07-18] MEDS: ENOXAPARIN SODIUM SQ SCH (19:57)
--- NOTE | 2018-07-18 20:31 | XRAY ---
Indication: Left lower quadrant pain. Multiple contiguous axial images obtained through the abdomen and pelvis without IV contrast as ordered. Enteric contrast used. Comparison: March 03, 2017. Lung bases again demonstrates scattered fibrosis/scarring. No infiltrate or effusion. Heart is enlarged. Again small hiatal hernia. Contrasted stomach and bowel loops appear nonobstructed. Patient reports appendectomy, cholecystectomy, and hysterectomy. There is again mild diffuse colonic fecal debris and diverticulosis throughout. Majority of the sigmoid colon again demonstrates bowel wall thickening with stranding favoring diverticulitis. No free fluid/air. Stable right renal cyst. 5.5 cm left adnexal cystic mass presumed ovary. Remaining liver, pancreas, spleen, adrenal glands, kidneys, ureters, and bladder appear unremarkable for noncontrast exam. Stable mild aortoiliac calcifications without AAA. Osseous structures intact again with moderate degenerative changes throughout the thoracolumbar spine including minimal grade 1 L4 spondylolisthesis. Impression: 1. Suspect recurrent sigmoid diverticulitis. No complications. 2. 5.5 cm left adnexal cystic mass presumed ovary. Correlate with surgical history. Pelvic sonogram may yield further information if clinically warranted. 3. Again fecal stasis, small hiatal hernia, right renal cyst, multilevel degenerative spondylosis, and grade 1 L4 spondylolisthesis. 4. New cardiomegaly. Comment: Preliminary interpretation was made by C. No critical discrepancy. CTDI 23.68
[2018-07-18] MEDS ORDERED: NON-FORMULARY ITEM (Atorvastatin Calcium 10 MG) PO SCH (22:00)
[2018-07-18] MEDS: Zocor 10MG PO SCH (22:12)
[2018-07-19 05:49] LABS: Hematocrit 32.8 % (35-47); Hemoglobin 10.5 gm/dl (12.0-16.0); Mean Cell Volume 93.2 fl (78-100); Mean Corpuscular Hemoglobin 29.8 pg (26-32); Mean Platelet Volume 9.8 fl (6-9.5); Platelet Count 255 K/mm3 (150-450); Red Blood Count 3.52 M/mm3 (4.1-5.4); White Blood Count 11.6 K/mm3 (4.0-10.5)
[2018-07-19] MEDS: FLAGYL 500 MG IVPB 500 MG/100 ML BAG IV SCH ×4 (06:03→17:28)
[2018-07-19] MEDS: Sodium Chloride 0.9% 1000 ML 1,000 ML IV SCH ×2 (06:04→13:22)
[2018-07-19 06:22] LABS: BLOOD UREA NITROGEN 19 mg/dL (7-17); CHLORIDE 106 mmol/L (98-107); Calcium 8.7 mg/dL (8.4-10.2); Carbon Dioxide 28 mmol/L (22-30); Creatinine 1 0.92 mg/dL (0.52-1.04); Glucose 110 mg/dL (74-106); Potassium 4.3 mmol/L (3.5-5.1); SODIUM 140 mmol/L (137-145)
--- NOTE | 2018-07-19 08:18 | PCM.NOTE ---
Date and Time: 07/19/18813 Subjective Assessment: Pt was found on CT yesterday to have active diverticulitis - in light of her recent abd pain I decided to keep her and start her on IV levaquin and flagyl. Her pain is 4/10 this morning in the LLQ. She states she tolerated po yesterday but did not have much of an appetite. The CT also showed 5.5 cm cystic mass in LLQ, presumed ovary, recommended u/s to further characterize. She states she thinks she had a hysterectomy but is unsure what was removed. - Review of Systems Constitutional: No Fever Abdominal/Gastrointestinal: Abdominal Pain Objective Exam General Appearance: no apparent distress, alert, obese Neurologic Exam: 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, cooperative Skin Exam: normal color, warm, dry, No rash Respiratory Exam: normal breath sounds, lungs clear, No crackles/rales, No rhonchi, No wheezing Cardiovascular Exam: regular rate/rhythm, normal heart sounds, No murmur Gastrointestinal/Abdomen Exam: soft, normal bowel sounds, tenderness (LLQ, mild) , No distention, No mass, No guarding, No rebound Extremity Exam: normal inspection, No pedal edema, No swelling Back Exam: normal inspection, No rash OBJECTIVE DATA Vital Signs: Vital Signs - 24 hr Temp Pulse Resp BP Pulse Ox 07/19/18 07:38 98.1 F 81 18 140/72 94 L 07/19/18 02:59 99.3 F 81 19 176/77 93 L 07/18/18 23:47 99 F 84 20 183/77 94 L 07/18/18 20:00 98.6 F 79 20 190/77 95 07/18/18 15:53 98.4 F 81 18 180/74 96 07/18/18 12:00 98.3 F 76 18 163/76 96 Pain Assessment - Last Documented Pain Intensity 0 Pain Scale Used 0-10 Pain Scale Intake and Output: Intake & Output 07/16/18 07/17/18 07/18/18 07/19/18 11:59 11:59 11:59 11:59 Intake Total 1059 1743 Output Total 950 Balance 109 1743 Weight 112.037 kg 112.1 kg Lab Results: Lab Results-Last 24 Hours 07/18/18 07/18/18 07/19/18 Range/Units 09:30 09:30 05:28 WBC 11.1 H 11.6 H (4.0-10.5) K/mm3 RBC 3.79 L 3.52 L (4.1-5.4) M/mm3 Hgb 11.3 L 10.5 L (12.0-16.0) gm/dl Hct 35.4 32.8 L (35-47) % MCV 93.4 93.2 (78-100) fl MCH 29.8 29.8 (26-32) pg MCHC 31.9 L 32.0 (32-36) g/dl RDW 13.2 13.0 (11.5-14.0) % Plt Count 282 255 (150-450) K/mm3 MPV 9.8 H 9.8 H (6-9.5) fl Gran % 69.6 H (36.0-66.0) % Eos # (Auto) 0.69 H (0-0.5) Absolute Lymphs (auto) 1.63 (1.0-4.6) Absolute Monos (auto) 1.03 (0.0-1.3) Lymphocytes % 14.6 L (24.0-44.0) % Monocytes % 9.2 (0.0-12.0) % Eosinophils % 6.2 H (0.00-5.0) % Basophils % 0.4 (0.0-0.4) % Absolute Granulocytes 7.74 H (1.4-6.9) Basophils # 0.05 (0-0.4) Sodium 141 (137-145) mmol/L Potassium 3.7 (3.5-5.1) mmol/L Chloride 105 (98-107) mmol/L Carbon Dioxide 27 (22-30) mmol/L Anion Gap 13.9 (5-15) MEQ/L BUN 19 H (7-17) mg/dL Creatinine 0.85 (0.52-1.04) mg/dL Estimated GFR > 60.0 ML/MIN Glucose 167 H (74-106) mg/dL Calcium 8.8 (8.4-10.2) mg/dL Total Bilirubin 0.50 (0.2-1.3) mg/dL AST 16 (14-36) U/L ALT 13 (0-35) U/L Alkaline Phosphatase 62 (38-126) U/L Serum Total Protein 7.3 (6.3-8.2) g/dL Albumin 3.7 (3.5-5.0) g/dL 07/19/18 Range/Units 05:28 WBC (4.0-10.5) K/mm3 RBC (4.1-5.4) M/mm3 Hgb (12.0-16.0) gm/dl Hct (35-47) % MCV (78-100) fl MCH (26-32) pg MCHC (32-36) g/dl RDW (11.5-14.0) % Plt Count (150-450) K/mm3 MPV (6-9.5) fl Gran % (36.0-66.0) % Eos # (Auto) (0-0.5) Absolute Lymphs (auto) (1.0-4.6) Absolute Monos (auto) (0.0-1.3) Lymphocytes % (24.0-44.0) % Monocytes % (0.0-12.0) % Eosinophils % (0.00-5.0) % Basophils % (0.0-0.4) % Absolute Granulocytes (1.4-6.9) Basophils # (0-0.4) Sodium 140 (137-145) mmol/L Potassium 4.3 (3.5-5.1) mmol/L Chloride 106 (98-107) mmol/L Carbon Dioxide 28 (22-30) mmol/L Anion Gap 11.0 (5-15) MEQ/L BUN 19 H (7-17) mg/dL Creatinine 0.92 (0.52-1.04) mg/dL Estimated GFR > 60.0 ML/MIN Glucose 110 H (74-106) mg/dL Calcium 8.7 (8.4-10.2) mg/dL Total Bilirubin (0.2-1.3) mg/dL AST (14-36) U/L ALT (0-35) U/L Alkaline Phosphatase (38-126) U/L Serum Total Protein (6.3-8.2) g/dL Albumin (3.5-5.0) g/dL Radiology Exams: Radiology Procedures Category Date Time Status ABDOMEN AND PELVIS W/0 CONTRAS [CT] Urgent Exams 07/18/18 13:22 Completed CHEST 1 VIEW (PORTABLE) Stat Exams 07/17/18 20:10 Completed WRIST (MIN 3 VIEWS) Stat Exams 07/17/18 20:15 Completed Assessment/Plan (1) UTI (urinary tract infection) Current Visit: Yes Status: Acute Qualifiers: Urinary tract infection type: site unspecified Hematuria presence: without hematuria Qualified Code(s): N39.0 - Urinary tract infection, site not specified Assessment & Plan: Urine culture 3 or more strains, so no definitive result. At any rate, pt now on levaquin. Code(s): N39.0 - URINARY TRACT INFECTION, SITE NOT SPECIFIED (2) Strain of right wrist Current Visit: Yes Status: Acute Qualifiers: Encounter type: initial encounter Qualified Code(s): S66.911A - Strain of unspecified muscle, fascia and tendon at wrist and hand level, right hand, initial encounter Code(s): S66.911A - STRAIN OF UNSP MUSC/FASC/TEND AT WRS/HND LV, R HAND, INIT (3) Diverticulitis Current Visit: Yes Status: Acute Assessment & Plan: day #2 of levaquin and flagyl. I advised if she is feeling well, less pain and more appetite, may be able to d/c to home this afternoon. otherwise, would have her stay and continue IV antibiotics. Code(s): K57.92 - DVTRCLI OF INTEST, PART UNSP, W/O PERF OR ABSCESS W/O BLEED (4) Weak Current Visit: Yes Status: Resolved Code(s): R53.1 - WEAKNESS (5) Ovarian cyst Current Visit: Yes Status: Chronic Qualifiers: Laterality: left Qualified Code(s): N83.202 - Unspecified ovarian cyst, left side Assessment & Plan: U/S to further characterize cystic mass. Code(s): N83.209 - UNSPECIFIED OVARIAN CYST, UNSPECIFIED SIDE
--- NOTE | 2018-07-19 09:38 | XRAY ---
Indication: Left lower quadrant pain. Diverticulitis. Left ovary cyst on recent CT. Hysterectomy. Two-dimensional transabdominal pelvic sonogram performed. Comparison: None Sonogram limited due to overlying bowel gas. Uterus surgically absent. There is a 7.7 x 6.9 x 7.2 cm left adnexa anechoic cyst corresponding to recent CT finding and probably ovary in etiology. No other solid/cystic mass or free fluid. Impression: Surgically absent uterus. Left adnexa anechoic cyst as detailed probably ovary in etiology.
[2018-07-19] MEDS ORDERED: Levofloxacin 500MG/100ML D5W 500 MG/100 ML BAG IV SCH (10:00)
[2018-07-19] MEDS: ENOXAPARIN SODIUM SQ SCH (10:00)
[2018-07-19] MEDS ORDERED: BENTYL 20 MG PO SCH (10:00)
[2018-07-19] MEDS ORDERED: Acidophilus TABLET PO SCH (10:00)
[2018-07-19] MEDS ORDERED: BENADRYL 25 MG CAPSULE PO SCH (11:45)
[2018-07-19] MEDS ORDERED: MORPHINE SULFATE 2 MG INJ IV PRN (13:31)
[2018-07-19] MEDS: Zocor 10MG PO SCH (22:19)
[2018-07-20] MEDS: FLAGYL 500 MG IVPB 500 MG/100 ML BAG IV SCH ×2 (00:24→06:15)
[2018-07-20 05:22] VITALS: O2SAT 94
[2018-07-20] MEDS: Sodium Chloride 0.9% 1000 ML 1,000 ML IV SCH (06:15)
[2018-07-20 08:09] VITALS: BP 178/77; PULSE 72
--- NOTE | 2018-07-20 08:49 | PCM.DS ---
Discharge Summary Date of Admission: 07/18/18 13:22 Admitting Physician: LORRI HAYWOOD Primary Care Provider: ARA BRAVO Allergies Allergies No Known Drug Allergies Allergy (Verified 07/17/18 20:02) Hospital Summary - Hospital Course Hospital Course: Pt is a 78 yo female pt of Dr. Bravo who was admitted through the ER for weakness and was found to have a UTI so was started on IV rocephin. UCx ended up basically negative. However, on her second hospital day she complained of LLQ pain and told me it had been ongoing x [address] abd/pelvis revealed diverticulitis. Her antibiotics were changed to IV flagyl and levaquin. She was feeling better yesterday, then did have an exacerbation of pain yesterday about 1 pm, was given IV morphine x 1 and didn't have any abd pain whatsoever since then. She had some localized itching with her levaquin IV yesterday; was given benadryl IV. Tolerating po fine. She will be sent home today on po augmentin. In the ER she also c/o wrist pain - xr with post surgical changes, otherwise nonacute. dx with wrist strain. - Vitals & Intake/Output Vital Signs: Vital Signs Temperature 98.4 F 07/20/18 08:00 Pulse Rate 72 07/20/18 08:00 Respiratory Rate 18 07/20/18 08:00 Blood Pressure 178/77 07/20/18 08:00 O2 Sat by Pulse Oximetry 94 L 07/20/18 08:00 Intake & Output: Intake & Output 07/17/18 07/18/18 07/19/18 07/20/18 11:59 11:59 11:59 11:59 Intake Total 1059 1743 3743 Output Total 575 125 4689 Balance 109 1493 2743 Weight 112.037 kg 112.1 kg 113.6 kg - Lab Result Diagrams: 07/19/18 05:28 07/19/18 05:28 Micro Results-Entire Visit: Microbiology 07/17/18 21:25 Urine Culture - Final Urine, Void MIXED MEGAN; 3 OR MORE TYPES. NO PREDOMINANT ORGANISM. NO FURTHER WORKUP. PLEASE RESUBMIT IF CLINICALLY INDICATED. - Radiology Exams Ordered Rad Exams-Entire Visit: Radiology Procedures Category Date Time Status ABDOMEN AND PELVIS W/0 CONTRAS [CT] Urgent Exams 07/18/18 13:22 Completed PELVIC [US] Routine Exams 07/19/18 09:16 Completed Discharge Exam General Appearance: no apparent distress, alert Neurologic Exam: 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, cooperative Eye Exam: eyes nml inspection Ears, Nose, Throat Exam: moist mucous membranes Respiratory Exam: normal breath sounds, lungs clear, No crackles/rales, No rhonchi, No wheezing Cardiovascular Exam: regular rate/rhythm, normal heart sounds, No murmur Gastrointestinal/Abdomen Exam: soft, normal bowel sounds, No tenderness, No distention, No mass, No guarding, No rebound Extremity Exam: No pedal edema, No swelling Skin Exam: normal color, warm, dry, No rash Final Diagnosis/Problem List - Final Discharge Diagnosis/Problem (1) Diverticulitis Current Visit: Yes Status: Acute Code(s): K57.92 - DVTRCLI OF INTEST, PART UNSP, W/O PERF OR ABSCESS W/O BLEED (2) Strain of right wrist Current Visit: Yes Status: Acute Code(s): S66.911A - STRAIN OF UNSP MUSC/ FASC/TEND AT WRS/HND LV, R HAND, INIT (3) Weak Current Visit: Yes Status: Resolved Code(s): R53.1 - WEAKNESS (4) Ovarian cyst Current Visit: Yes Status: Chronic Code(s): N83.209 - UNSPECIFIED OVARIAN CYST, UNSPECIFIED SIDE (5) Hypertension Current Visit: No Status: Chronic Assessment & Plan: Most BP in the 140s here, however occasional up to the 170s. On lisinopril 10mg/ d. Code(s): I10 - ESSENTIAL (PRIMARY) HYPERTENSION - Discharge Disposition: Home, Self-Care Condition: Good Prescriptions: New Lactobacillus Acidophilus [Acidophilus TABLET] 1 tab PO DAILY tablet Amoxicillin/Potassium Clav [Augmentin 875-125 Tablet] 875 mg PO BID #14 tablet Continue Dicyclomine HCl [Bentyl] 10 mg PO DAILY Atorvastatin Calcium [Lipitor] 10 mg PO HS Lisinopril 10 mg [Zestril 10 MG] 10 mg PO DAILY PRN PRN PRN Reason: Elevated Blood Pressure Additional Instructions: Some diarrhea can be normal with antibiotics; however, if it is severe, please call your primary care doctor. Follow up with: ARA BRVAO MD [Primary Care Provider] - 1 Week
== END 2018-07-20 09:55 | disposition home or self-care (01) | DRG 690 ==
LOC: ED 19:07 → MED SURG 22:36 → OBSVTOIN 07-18 13:22
PROVIDERS: ADMIT Family Medicine; ATTEND Family Medicine
DX: N39.0 Urinary tract infection, site not specified (principal); K57.32 Diverticulitis of large intestine without perforation or abscess without bleeding; R53.1 Weakness; M25.531 Pain in right wrist; N83.202 Unspecified ovarian cyst, left side; R10.32 Left lower quadrant pain; S66.911A Strain of unspecified muscle, fascia and tendon at wrist and hand level, right hand, initial encounter; I10 Essential (primary) hypertension; Z79.899 Other long term (current) drug therapy
CPT/HCPCS: 36000; 36415; 71045; 73110; 74176; 76856; 80048; 80053; 81001; 83605; 84439; 84443; 84484; 85025; 85027; 87086; 93005; 93268; 96360; 96365; 99284; 99285; J0696; J1650; J1956; J2270; L3908; A9270-GY; G0378

== ENCOUNTER 2018-11-04 18:17 | Inpatient (IN) | payer MEDICARE, OTHER ==
[2018-11-04 18:53] LABS: Appearance SLIGHTLY CLOUDY (CLEAR); Bacteria FEW /HPF (NEGATIVE); Bilirubin NEGATIVE (NEGATIVE); Blood NEGATIVE Ery/ul (0-5); Epithelial Cells RARE /HPF (FEW); Glucose NEGATIVE (NEGATIVE); Ketones NEGATIVE (NEGATIVE); Leukocyte Esterase MODERATE (NEGATIVE); Mucus SLIGHT /HPF (NEGATIVE); Nitrite NEGATIVE (NEGATIVE); Protein,Urine Dip NEGATIVE (Negative); RBC 0-2 /HPF (0-2); Urobilinogen 2 mg/dL (0-1)
--- NOTE | 2018-11-04 19:25 | ERPHSYRPT ---
- History of Present Illness Time Seen by Provider: 11/04/18 18:40 Historian: patient Exam Limitations: no limitations Patient Subjective Stated Complaint: Pain in left lower abdomen, hx of frequent UTI's Triage Nursing Assessment: Pt brought into the ER via a wheelchair, c/o of pain in left lower abdomen, tender to palpatation, denies any injury, been hurting for 2 days, less frequent urination, denies pain with urination, hypertenstive Physician History: Patient has had two days of suprapubic and left lower quadrant abdominal pain. Timing/Duration: day(s) (2) Activities at Onset: none Quality: aching Abdominal Pain Onset Location: LLQ, suprapubic Pain Radiation: no radiation Severity of Pain-Max: moderate Severity of Pain-Current: mild Modifying Factors: Improves With: nothing Associated Symptoms: No back, No chest pain, No diaphoresis, No diarrhea, No fever/chills, No fatigue, No headache, No heartburn, No loss of appetite, No nausea, No neck pain, No rash, No shortness of breath, No syncope, No vomiting, No weakness Previous symptoms: same symptoms as today (diagnosed with a UTI in the past with similar symtpoms; no recent treatment or recently seen) Allergies/Adverse Reactions: No Known Drug Allergies Allergy (Verified 11/04/18 18:31) Home Medications: No Reportable Medications [No Reported Medications] 11/04/18 [History] Hx Tetanus, Diphtheria Vaccination/Date Given: Yes Hx Influenza Vaccination/Date Given: Yes Hx Pneumococcal Vaccination/Date Given: Yes - Past Medical History Pertinent Past Medical History: Yes Neurological History: No Pertinent History ENT History: Cataracts Cardiac History: No Pertinent History, Hypertension Respiratory History: No Pertinent History Endocrine Medical History: No Pertinent History Musculoskeletal History: Osteoarthritis GI Medical History: Diverticulosis, Other History: No Pertinent History Psycho-Social History: No Pertinent History Female Reproductive Disorders: No Pertinent History Other Medical History: R TKA 2002, L 2014 - Past Surgical History Past Surgical History: Yes Neuro Surgical History: No Pertinent History Cardiac: No Pertinent History Respiratory: No Pertinent History Gastrointestinal: Appendectomy, Cholecystectomy Genitourinary: No Pertinent History Musculoskeletal: Joint Replacement, Orthopedic Surgery Female Surgical History: Hysterectomy Other Surgical History: RIGHT KNEE REPLACEMENT IN 2002, SURGERY LEFT WRIST 2002 , LEFT KNEE REPLACEMENT 2014. 2nd rt tka last year - Social History Smoking Status: Former smoker Exposure to second hand smoke: Yes Alcohol Use: None Drug Use: none Patient Lives Alone: No Significant Family History: no pertinent family hx - Female History Hx Now: No - Nursing Vital Signs Nursing Vital Signs: Initial Vital Signs Temperature 98.1 F 11/04/18 18:19 Pulse Rate 88 11/04/18 18:19 Blood Pressure 181/90 11/04/18 18:19 O2 Sat by Pulse Oximetry 95 11/04/18 18:19 Pain Scale Pain Intensity [] 7 Pain Intensity 8 - Physical Exam General Appearance: no apparent distress, alert Eye Exam: PERRL/EOMI, eyes nml inspection, No scleral icterus Ears, Nose, Throat Exam: normal ENT inspection, pharynx normal, moist mucous membranes Neck Exam: normal inspection, non-tender, supple, full range of motion, No meningismus Respiratory Exam: normal breath sounds, lungs clear, airway intact, No respiratory distress, No diminished breath sounds, No accessory muscle use, No crackles/rales, No rhonchi, No wheezing Cardiovascular Exam: regular rate/rhythm, normal heart sounds, normal peripheral pulses Gastrointestinal/Abdomen Exam: soft, normal bowel sounds, tenderness (mild in the LLQ), No distention, No mass, No ecchymosis, No rebound Back Exam: normal inspection, normal range of motion, No CVA tenderness, No vertebral tenderness Extremity Exam: normal inspection, normal range of motion, pelvis stable Neurologic Exam: alert, 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, cooperative, x ray technologist II-XII nml as tested, normal mood/affect, sensation nml, No motor deficits Skin Exam: normal color, warm, dry Lymphatic Exam: No adenopathy SpO2 Interpretation: normal SpO2: 95 O2 Delivery: Room Air - Course Nursing assessment & vital signs reviewed: Yes - CT Exams Abdomen/Pelvis CT Interpretation: Other (per radiologist interpretation: Again probable recurrent sigmoid diverticulitis with a 7 cm fluid collection interposed between sigmoid and rectum and urinary bladder; rule out abscess. Stable right renal cyst; Repeat CT scan with IV contrast per Radiologist: 7 x 5.6 x 6.3 cm pelvic fluid is nonenhancing and measured 7.7 x 6.9 x 7.2 cm on pelvic ultrasound from 07/19/2018. Remaining abdomen/pelvis unchanged with no new info compared to earlier noncontrast exam ) Ordered Tests: Active Orders 24 hr Category Date Time Status ABDOMEN AND PELVIS W CONTRAST [CT] Stat Exams 11/04/18 21:41 Taken ABDOMEN AND PELVIS W/0 CONTRAS [CT] Stat Exams 11/04/18 19:41 Taken AMYLASE Stat Lab 11/04/18 21:00 Completed CBC W DIFF Stat Lab 11/04/18 20:18 Completed CMP Stat Lab 11/04/18 21:00 Completed CULTURE,URINE Stat Lab 11/04/18 18:51 Received LIPASE Stat Lab 11/04/18 21:00 Completed Lactic Acid Stat Lab 11/04/18 21:03 Completed PROTIME WITH INR Stat Lab 11/04/18 21:00 Completed UA W/RFX UR CULTURE Stat Lab 11/04/18 18:51 Completed Medication Summary Discontinued Medications Generic Name Dose Route Start Last Admin Trade Name Freq PRN Reason Stop Dose Admin Hydromorphone HCl 1 mg 11/04/18 22:09 Hydromorphone 1 Mg/Ml Ampule IV 11/04/18 22:10 STAT ONE Sodium Chloride 1,000 mls @ 999 mls/hr 11/04/18 20:18 11/04/18 22:04 Sodium Chloride 0.9% 1000 Ml IV 11/04/18 21:18 Infused .Q1H1M STA Infusion Sodium Chloride Confirm 11/04/18 21:00 Sodium Chloride 0.9% 1000 Ml Administered 11/04/18 21:01 Dose 1,000 mls @ ud .ROUTE .STK-MED ONE Lab/Rad Data: Laboratory Result Diagrams 11/04/18 20:18 11/04/18 21:00 Laboratory Results 11/04/18 11/04/18 11/04/18 Range/Units 21:03 21:00 21:00 WBC (4.0-10.5) K/mm3 RBC (4.1-5.4) M/mm3 Hgb (12.0-16.0) gm/dl Hct (35-47) % MCV (78-100) fl MCH (26-32) pg MCHC (32-36) g/dl RDW (11.5-14.0) % Plt Count (150-450) K/mm3 MPV (6-9.5) fl Gran % (36.0-66.0) % Eos # (Auto) (0-0.5) Absolute Lymphs (auto) (1.0-4.6) Absolute Monos (auto) (0.0-1.3) Lymphocytes % (24.0-44.0) % Monocytes % (0.0-12.0) % Eosinophils % (0.00-5.0) % Basophils % (0.0-0.4) % Absolute Granulocytes (1.4-6.9) Basophils # (0-0.4) PT 13.4 H (9.95-12.35) SECONDS INR 1.18 (0.8-3.0) Sodium 142 (137-145) mmol/L Potassium 4.5 (3.5-5.1) mmol/L Chloride 104 (98-107) mmol/L Carbon Dioxide 28 (22-30) mmol/L Anion Gap 14.9 (5-15) MEQ/L BUN 19 H (7-17) mg/dL Creatinine 0.98 (0.52-1.04) mg/dL Estimated GFR 58.5 ML/MIN Glucose 104 (74-106) mg/dL Lactic Acid 1.0 (0.4-2.0) Calcium 9.1 (8.4-10.2) mg/dL Total Bilirubin 0.60 (0.2-1.3) mg/dL AST 21 (14-36) U/L ALT 11 (0-35) U/L Alkaline Phosphatase 66 (38-126) U/L Serum Total Protein 7.9 (6.3-8.2) g/dL Albumin 4.1 (3.5-5.0) g/dL Amylase 56 (30-110) U/L Lipase 27 (23-300) U/L Urine Color (YELLOW) Urine Appearance (CLEAR) Urine pH (5-6) Ur Specific [place] (1.005-1.025) Urine Protein (Negative) Urine Ketones (NEGATIVE) Urine Blood (0-5) Jerad/ul Urine Nitrite (NEGATIVE) Urine Bilirubin (NEGATIVE) Urine Urobilinogen (0-1) mg/dL Ur Leukocyte Esterase (NEGATIVE) Urine WBC (Auto) (0-5) /HPF Urine RBC (Auto) (0-2) /HPF U Epithel Cells (Auto) (FEW) /HPF Urine Bacteria (Auto) (NEGATIVE) /HPF Urine Mucus (Auto) (NEGATIVE) /HPF Urine Culture Reflexed (NO) Urine Glucose (NEGATIVE) mg/dL 11/04/18 11/04/18 Range/Units 20:18 18:51 WBC 12.9 H (4.0-10.5) K/mm3 RBC 4.27 (4.1-5.4) M/mm3 Hgb 12.7 (12.0-16.0) gm/dl Hct 39.5 (35-47) % MCV 92.5 (78-100) fl MCH 29.7 (26-32) pg MCHC 32.2 (32-36) g/dl RDW 13.7 (11.5-14.0) % Plt Count 298 (150-450) K/mm3 MPV 10.0 H (6-9.5) fl Gran % 67.5 H (36.0-66.0) % Eos # (Auto) 0.51 H (0-0.5) Absolute Lymphs (auto) 2.29 (1.0-4.6) Absolute Monos (auto) 1.34 H (0.0-1.3) Lymphocytes % 17.7 L (24.0-44.0) % Monocytes % 10.4 (0.0-12.0) % Eosinophils % 4.0 (0.00-5.0) % Basophils % 0.4 (0.0-0.4) % Absolute Granulocytes 8.72 H (1.4-6.9) Basophils # 0.05 (0-0.4) PT (9.95-12.35) SECONDS INR (0.8-3.0) Sodium (137-145) mmol/L Potassium (3.5-5.1) mmol/L Chloride (98-107) mmol/L Carbon Dioxide (22-30) mmol/L Anion Gap (5-15) MEQ/L BUN (7-17) mg/dL Creatinine (0.52-1.04) mg/dL Estimated GFR ML/MIN Glucose (74-106) mg/dL Lactic Acid (0.4-2.0) Calcium (8.4-10.2) mg/dL Total Bilirubin (0.2-1.3) mg/dL AST (14-36) U/L ALT (0-35) U/L Alkaline Phosphatase (38-126) U/L Serum Total Protein (6.3-8.2) g/dL Albumin (3.5-5.0) g/dL Amylase (30-110) U/L Lipase (23-300) U/L Urine Color YELLOW (YELLOW) Urine Appearance SLIGHTLY CLOUDY (CLEAR) Urine pH 5.0 (5-6) Ur Specific [place] 1.020 (1.005-1.025) Urine Protein NEGATIVE (Negative) Urine Ketones NEGATIVE (NEGATIVE) Urine Blood NEGATIVE (0-5) Jerad/ul Urine Nitrite NEGATIVE (NEGATIVE) Urine Bilirubin NEGATIVE (NEGATIVE) Urine Urobilinogen 2 (0-1) mg/dL Ur Leukocyte Esterase MODERATE (NEGATIVE) Urine WBC (Auto) 16-25 (0-5) /HPF Urine RBC (Auto) 0-2 (0-2) /HPF U Epithel Cells (Auto) RARE (FEW) /HPF Urine Bacteria (Auto) FEW (NEGATIVE) /HPF Urine Mucus (Auto) SLIGHT (NEGATIVE) /HPF Urine Culture Reflexed YES (NO) Urine Glucose NEGATIVE (NEGATIVE) mg/dL 10/12/2017: Urine Culture: Proteus Mirabilis grew out, pansensitive - Progress Progress: unchanged Progress Note: 11/04/18 22:05 Patient is still complaining of significant pain. Blood pressure is elevated. 11/04/18 22:16 Discussed the patient with Dr Vasquez, Hospitalist. Dr Vasquez accepted the patient for observation to [facility]. Discussed with : Indy Counseled pt/family regarding: lab results, diagnosis, need for follow-up, rad results - Departure Departure Disposition: Observation ([facility]) Clinical Impression: Sigmoid diverticulitis, Hypertension Acute cystitis Qualifiers: Hematuria presence: without hematuria Qualified Code(s): N30.00 - Acute cystitis without hematuria Condition: Fair Critical Care Time: No Referrals: ARA RODRIGUES MD [Primary Care Provider] -
[2018-11-04] MEDS ORDERED: Sodium Chloride 0.9% 1000 ML 1,000 ML IV STA (20:18)
[2018-11-04] MEDS ORDERED: Sodium Chloride 0.9% 1000 ML 1,000 ML ONE (21:00)
[2018-11-04 21:06] LABS: BASOPHIL % 0.4 % (0.0-0.4); Basophil (Absolute #) 0.05 (0-0.4); Eosinophil (Absolute #) 0.51 (0-0.5); Granulocyte Absolute (ANC) 8.72 (1.4-6.9); Granulocytes % 67.5 % (36.0-66.0); Hematocrit 39.5 % (35-47); Hemoglobin 12.7 gm/dl (12.0-16.0); Lymphocyte (Absolute #) 2.29 (1.0-4.6); Lymphocytes % 17.7 % (24.0-44.0); Mean Cell Volume 92.5 fl (78-100); Mean Corpuscular Hemoglobin 29.7 pg (26-32); Mean Corpuscular Hgb Concent. 32.2 g/dl (32-36); Monocyte (Absolute #) 1.34 (0.0-1.3); Monocytes % 10.4 % (0.0-12.0); Platelet Count 298 K/mm3 (150-450); Red Blood Count 4.27 M/mm3 (4.1-5.4); Red Cell Distribution Width 13.7 % (11.5-14.0); White Blood Count 12.9 K/mm3 (4.0-10.5)
[2018-11-04 21:19] LABS: INR 1.18 (0.8-3.0); PROTIME 13.4 SECONDS (9.95-12.35)
[2018-11-04 21:23] LABS: ALBUMIN 4.1 g/dL (3.5-5.0); ANION GAP 14.9 MEQ/L (5-15); BILIRUBIN,TOTAL 0.6 mg/dL (0.2-1.3); Calcium 9.1 mg/dL (8.4-10.2); Creatinine 1 0.98 mg/dL (0.52-1.04); Potassium 4.5 mmol/L (3.5-5.1); Total Protein 7.9 g/dL (6.3-8.2)
[2018-11-04] MEDS ORDERED: Hydromorphone 1 mg/ml Ampule IV ONE (22:09)
[2018-11-04] MEDS ORDERED: Hydromorphone 1 mg/ml Ampule ONE (22:14)
[2018-11-04] MEDS ORDERED: TYLENOL 325 MG PO PRN (23:17)
[2018-11-04] MEDS: FLAGYL 500 MG IVPB 500 MG/100 ML BAG IV SCH (23:39)
[2018-11-04] MEDS: Sodium Chloride 0.9% 1000 ML 1,000 ML IV SCH (23:39)
[2018-11-05] MEDS: MORPHINE SULFATE 4 MG INJ IV PRN ×4 (03:15→21:07)
[2018-11-05 05:13] LABS: BASOPHIL % 0.4 % (0.0-0.4); Basophil (Absolute #) 0.04 (0-0.4); Eosinophil % 5.3 % (0.00-5.0); Eosinophil (Absolute #) 0.49 (0-0.5); Granulocyte Absolute (ANC) 5.87 (1.4-6.9); Granulocytes % 63.8 % (36.0-66.0); Hematocrit 34.3 % (35-47); Hemoglobin 10.9 gm/dl (12.0-16.0); Lymphocyte (Absolute #) 1.84 (1.0-4.6); Mean Cell Volume 94.5 fl (78-100); Mean Corpuscular Hgb Concent. 31.8 g/dl (32-36); Mean Platelet Volume 9.8 fl (6-9.5); Monocyte (Absolute #) 0.97 (0.0-1.3); Monocytes % 10.5 % (0.0-12.0); Platelet Count 248 K/mm3 (150-450); Red Blood Count 3.63 M/mm3 (4.1-5.4); Red Cell Distribution Width 13.6 % (11.5-14.0); White Blood Count 9.2 K/mm3 (4.0-10.5)
[2018-11-05 05:22] LABS: ANION GAP 10.9 MEQ/L (5-15); Calcium 8.4 mg/dL (8.4-10.2); Creatinine 1 1.01 mg/dL (0.52-1.04); Potassium 4.3 mmol/L (3.5-5.1)
[2018-11-05] MEDS: FLAGYL 500 MG IVPB 500 MG/100 ML BAG IV SCH ×3 (06:17→18:44)
--- NOTE | 2018-11-05 08:58 | PCM.HP ---
History of Present Illness - Chief Complaint Chief Complaint: Sigmoid diverticulitis, acute cystitis, pelvic fluid collection Date: 11/05/18 History of Present Illness: is a 78 year old female. Pt. with 2 day history of sharp constant lower abdominal pain. Pt. notes history of recurrent UTI's. Pt. notes exacerbated by walking or most any movement. PT. notes pain 8/10 yesterday, this am down to 6/10. - Review of Systems Constitutional: No Fever, No Chills Eyes: No Symptoms Ears, Nose, & Throat: No Symptoms Respiratory: No Cough, No Short Of Breath Cardiac: No Chest Pain, No Edema, No Syncope Abdominal/Gastrointestinal: Abdominal Pain, No Nausea, No Vomiting, No Diarrhea Genitourinary Symptoms: No Dysuria Musculoskeletal: No Back Pain, No Neck Pain Skin: No Rash Neurological: No Dizziness, No Focal Weakness, No Sensory Changes Psychological: No Symptoms Endocrine: No Symptoms Hematologic/Lymphatic: No Symptoms Immunological/Allergic: No Symptoms Medications & Allergies Home Medications: Home Medication List Aspirin EC 81 mg [Ecotrin 81 mg] 81 mg PO DAILY 11/04/18 [History Confirmed 11/04/18] Atorvastatin Calcium 10 mg PO HS 11/04/18 [History Confirmed 11/04/18] Dicyclomine HCl 20 mg [Bentyl 20 mg] 10 mg PO DAILY 11/04/18 [History Confirmed 11/04/18] Lisinopril 10 mg [Zestril 10 MG] 10 mg PO DAILY 11/04/18 [History Confirmed 11/04/18] Allergies/Adverse Reactions: Allergies Allergy/AdvReac Type Severity Reaction Status Date / Time No Known Drug Allergies Allergy Verified 11/04/18 18:31 - Past Medical History Past Medical History: Yes Neurological History: No Pertinent History ENT History: Cataracts Cardiac History: No Pertinent History, Hypertension Respiratory History: No Pertinent History Endocrine Medical History: No Pertinent History Musculoskelatal History: Osteoarthritis GI Medical History: Diverticulosis, Other History: No Pertinent History Pyscho-Social History: No Pertinent History Reproductive Disorders: No Pertinent History Comment: R TKA 2002, L 2014 - Female History Are you now?: No - Past Surgical History Past Surgical History: Yes Neuro Surgical History: No Pertinent History Cardiac History: No Pertinent History Respiratory Surgery: No Pertinent History GI Surgical History: Appendectomy, Cholecystectomy Genitourinary Surgical Hx: No Pertinent History Musculskeletal Surgical Hx: Joint Replacement, Orthopedic Surgery Female Surgical History: Hysterectomy Other Surgical History: RIGHT KNEE REPLACEMENT IN 2002, SURGERY LEFT WRIST 2002 , LEFT KNEE REPLACEMENT 2014. 2nd rt tka last year, Skin cancer removed from face 2005 - Social History Smoking Status: Former smoker Exposure to second hand smoke: Yes (Sometimes) Alcohol: None Drug Use: none Significant Family History: no pertinent family hx - Physical Exam Vital Signs: Vital Signs - 24 hr Temp Pulse Resp BP BP Pulse Ox 11/05/18 07:55 98.9 F 79 20 138/78 93 L 11/05/18 04:10 97.7 F 74 18 167/70 92 L 11/04/18 23:52 98.6 F 80 20 169/77 94 L 11/04/18 23:46 95 11/04/18 22:17 95 11/04/18 22:04 83 20 197/101 97 11/04/18 21:06 86 20 194/99 95 11/04/18 18:19 98.1 F 88 181/90 95 General Appearance: no apparent distress, alert Neurologic Exam: alert, 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, cooperative, normal mood/affect, nml cerebellar function, sensation nml, No motor deficits Eye Exam: PERRL/EOMI, eyes nml inspection Ears, Nose, Throat Exam: normal ENT inspection, pharynx normal, moist mucous membranes Neck Exam: normal inspection, non-tender, supple, full range of motion Respiratory Exam: normal breath sounds, lungs clear, No respiratory distress Cardiovascular Exam: regular rate/rhythm, normal heart sounds, normal peripheral pulses Gastrointestinal/Abdomen Exam: soft, normal bowel sounds, tenderness (suprapubic ), No mass Back Exam: normal inspection, No CVA tenderness, No vertebral tenderness Extremity Exam: normal inspection, normal range of motion, pelvis stable Skin Exam: normal color, warm, dry, No rash Lymphatic Exam: No adenopathy Results - Labs Lab/Micro Results: Lab Results-Last 24 Hours 11/04/18 11/04/18 11/04/18 Range/Units 18:51 20:18 21:00 WBC 12.9 H (4.0-10.5) K/mm3 RBC 4.27 (4.1-5.4) M/mm3 Hgb 12.7 (12.0-16.0) gm/dl Hct 39.5 (35-47) % MCV 92.5 (78-100) fl MCH 29.7 (26-32) pg MCHC 32.2 (32-36) g/dl RDW 13.7 (11.5-14.0) % Plt Count 298 (150-450) K/mm3 MPV 10.0 H (6-9.5) fl Gran % 67.5 H (36.0-66.0) % Eos # (Auto) 0.51 H (0-0.5) Absolute Lymphs (auto) 2.29 (1.0-4.6) Absolute Monos (auto) 1.34 H (0.0-1.3) Lymphocytes % 17.7 L (24.0-44.0) % Monocytes % 10.4 (0.0-12.0) % Eosinophils % 4.0 (0.00-5.0) % Basophils % 0.4 (0.0-0.4) % Absolute Granulocytes 8.72 H (1.4-6.9) Basophils # 0.05 (0-0.4) PT (9.95-12.35) SECONDS INR (0.8-3.0) Sodium 142 (137-145) mmol/L Potassium 4.5 (3.5-5.1) mmol/L Chloride 104 (98-107) mmol/L Carbon Dioxide 28 (22-30) mmol/L Anion Gap 14.9 (5-15) MEQ/L BUN 19 H (7-17) mg/dL Creatinine 0.98 (0.52-1.04) mg/dL Estimated GFR 58.5 ML/MIN Glucose 104 (74-106) mg/dL Lactic Acid (0.4-2.0) Calcium 9.1 (8.4-10.2) mg/dL Total Bilirubin 0.60 (0.2-1.3) mg/dL AST 21 (14-36) U/L ALT 11 (0-35) U/L Alkaline Phosphatase 66 (38-126) U/L Serum Total Protein 7.9 (6.3-8.2) g/dL Albumin 4.1 (3.5-5.0) g/dL Amylase 56 (30-110) U/L Lipase 27 (23-300) U/L Urine Color YELLOW (YELLOW) Urine Appearance SLIGHTLY CLOUDY (CLEAR) Urine pH 5.0 (5-6) Ur Specific [place] 1.020 (1.005-1.025) Urine Protein NEGATIVE (Negative) Urine Ketones NEGATIVE (NEGATIVE) Urine Blood NEGATIVE (0-5) Jerad/ul Urine Nitrite NEGATIVE (NEGATIVE) Urine Bilirubin NEGATIVE (NEGATIVE) Urine Urobilinogen 2 (0-1) mg/dL Ur Leukocyte Esterase MODERATE (NEGATIVE) Urine WBC (Auto) 16-25 (0-5) /HPF Urine RBC (Auto) 0-2 (0-2) /HPF U Epithel Cells (Auto) RARE (FEW) /HPF Urine Bacteria (Auto) FEW (NEGATIVE) /HPF Urine Mucus (Auto) SLIGHT (NEGATIVE) /HPF Urine Culture Reflexed YES (NO) Urine Glucose NEGATIVE (NEGATIVE) mg/dL 11/04/18 11/04/18 11/05/18 Range/Units 21:00 21:03 04:58 WBC 9.2 (4.0-10.5) K/mm3 RBC 3.63 L (4.1-5.4) M/mm3 Hgb 10.9 L (12.0-16.0) gm/dl Hct 34.3 L (35-47) % MCV 94.5 (78-100) fl MCH 30.0 (26-32) pg MCHC 31.8 L (32-36) g/dl RDW 13.6 (11.5-14.0) % Plt Count 248 (150-450) K/mm3 MPV 9.8 H (6-9.5) fl Gran % 63.8 (36.0-66.0) % Eos # (Auto) 0.49 (0-0.5) Absolute Lymphs (auto) 1.84 (1.0-4.6) Absolute Monos (auto) 0.97 (0.0-1.3) Lymphocytes % 20.0 L (24.0-44.0) % Monocytes % 10.5 (0.0-12.0) % Eosinophils % 5.3 H (0.00-5.0) % Basophils % 0.4 (0.0-0.4) % Absolute Granulocytes 5.87 (1.4-6.9) Basophils # 0.04 (0-0.4) PT 13.4 H (9.95-12.35) SECONDS INR 1.18 (0.8-3.0) Sodium (137-145) mmol/L Potassium (3.5-5.1) mmol/L Chloride (98-107) mmol/L Carbon Dioxide (22-30) mmol/L Anion Gap (5-15) MEQ/L BUN (7-17) mg/dL Creatinine (0.52-1.04) mg/dL Estimated GFR ML/MIN Glucose (74-106) mg/dL Lactic Acid 1.0 (0.4-2.0) Calcium (8.4-10.2) mg/dL Total Bilirubin (0.2-1.3) mg/dL AST (14-36) U/L ALT (0-35) U/L Alkaline Phosphatase (38-126) U/L Serum Total Protein (6.3-8.2) g/dL Albumin (3.5-5.0) g/dL Amylase (30-110) U/L Lipase (23-300) U/L Urine Color (YELLOW) Urine Appearance (CLEAR) Urine pH (5-6) Ur Specific [place] (1.005-1.025) Urine Protein (Negative) Urine Ketones (NEGATIVE) Urine Blood (0-5) Jerad/ul Urine Nitrite (NEGATIVE) Urine Bilirubin (NEGATIVE) Urine Urobilinogen (0-1) mg/dL Ur Leukocyte Esterase (NEGATIVE) Urine WBC (Auto) (0-5) /HPF Urine RBC (Auto) (0-2) /HPF U Epithel Cells (Auto) (FEW) /HPF Urine Bacteria (Auto) (NEGATIVE) /HPF Urine Mucus (Auto) (NEGATIVE) /HPF Urine Culture Reflexed (NO) Urine Glucose (NEGATIVE) mg/dL 11/05/18 Range/Units 04:58 WBC (4.0-10.5) K/mm3 RBC (4.1-5.4) M/mm3 Hgb (12.0-16.0) gm/dl Hct (35-47) % MCV (78-100) fl MCH (26-32) pg MCHC (32-36) g/dl RDW (11.5-14.0) % Plt Count (150-450) K/mm3 MPV (6-9.5) fl Gran % (36.0-66.0) % Eos # (Auto) (0-0.5) Absolute Lymphs (auto) (1.0-4.6) Absolute Monos (auto) (0.0-1.3) Lymphocytes % (24.0-44.0) % Monocytes % (0.0-12.0) % Eosinophils % (0.00-5.0) % Basophils % (0.0-0.4) % Absolute Granulocytes (1.4-6.9) Basophils # (0-0.4) PT (9.95-12.35) SECONDS INR (0.8-3.0) Sodium 142 (137-145) mmol/L Potassium 4.3 (3.5-5.1) mmol/L Chloride 108 H (98-107) mmol/L Carbon Dioxide 28 (22-30) mmol/L Anion Gap 10.9 (5-15) MEQ/L BUN 16 (7-17) mg/dL Creatinine 1.01 (0.52-1.04) mg/dL Estimated GFR 56.5 ML/MIN Glucose 120 H (74-106) mg/dL Lactic Acid (0.4-2.0) Calcium 8.4 (8.4-10.2) mg/dL Total Bilirubin (0.2-1.3) mg/dL AST (14-36) U/L ALT (0-35) U/L Alkaline Phosphatase (38-126) U/L Serum Total Protein (6.3-8.2) g/dL Albumin (3.5-5.0) g/dL Amylase (30-110) U/L Lipase (23-300) U/L Urine Color (YELLOW) Urine Appearance (CLEAR) Urine pH (5-6) Ur Specific [place] (1.005-1.025) Urine Protein (Negative) Urine Ketones (NEGATIVE) Urine Blood (0-5) Jerad/ul Urine Nitrite (NEGATIVE) Urine Bilirubin (NEGATIVE) Urine Urobilinogen (0-1) mg/dL Ur Leukocyte Esterase (NEGATIVE) Urine WBC (Auto) (0-5) /HPF Urine RBC (Auto) (0-2) /HPF U Epithel Cells (Auto) (FEW) /HPF Urine Bacteria (Auto) (NEGATIVE) /HPF Urine Mucus (Auto) (NEGATIVE) /HPF Urine Culture Reflexed (NO) Urine Glucose (NEGATIVE) mg/dL - Radiology Impressions Radiology Exams & Impressions: Radiology Procedures Category Date Time Status ABDOMEN AND PELVIS W CONTRAST [CT] Stat Exams 11/04/18 21:41 Taken ABDOMEN AND PELVIS W/0 CONTRAS [CT] Stat Exams 11/04/18 19:41 Taken Assessment/Plan (1) Pelvic fluid collection Current Visit: Yes Status: Acute Assessment & Plan: Surgical consult, non walled, smaller in the past 3 months, recurrent UTI's, unsure of etiology Code(s): R18.8 - OTHER ASCITES (2) Acute cystitis Current Visit: Yes Status: Acute Qualifiers: Hematuria presence: without hematuria Qualified Code(s): N30.00 - Acute cystitis without hematuria Assessment & Plan: Continue iv abx Code(s): N30.00 - ACUTE CYSTITIS WITHOUT HEMATURIA (3) Sigmoid diverticulitis Current Visit: Yes Status: Acute Assessment & Plan: Continue iv abx rocephin and flagyl Code(s): K57.32 - DVTRCLI OF LG INT W/O PERFORATION OR ABSCESS W/O BLEEDING (4) Abdominal pain Current Visit: No Status: Acute Code(s): R10.9 - UNSPECIFIED ABDOMINAL PAIN
[2018-11-05] MEDS ORDERED: Levofloxacin 500 MG Tablet PO SCH (10:00)
[2018-11-05] MEDS ORDERED: ROCEPHIN 1 Gm-D5w 50 ml Bag** 1 G/50 ML IVPB IV SCH (10:00)
--- NOTE | 2018-11-05 10:13 | XRAY ---
Indication: Left lower quadrant pain 2 days. History diverticulitis. Multiple contiguous axial images obtained through the abdomen and pelvis prior to and following 80 cc Isovue 370 contrast. Comparison: July 18, 2018. Lung bases again demonstrate scattered fibrosis/scarring without focal infiltrate or effusion. Heart is not enlarged. Stable small hiatal hernia. Noncontrasted images again demonstrates left pelvic phlebolith. No new pathologic visceral calcifications/calculi. Noncontrasted stomach and bowel loops appear nonobstructed. Stable appendectomy, cholecystectomy, and hysterectomy. Again scattered colonic diverticulosis. Sigmoid colon again demonstrates wall thickening and stranding favoring diverticulitis. Interposed between the sigmoid colon/rectum and urinary bladder is a well-circumscribed nonenhancing walled off fluid collection measuring 7.0 x 5.6 x 6.3 cm. Pelvic ultrasound July 19, 2018 reports this to be 7.7 x 6.9 x 7.2 cm. Partial differential would include abscess, lymphocele, or ovary cyst if ovaries still present. Elsewhere no free fluid/air. Postcontrast images demonstrates normal visceral enhancement and renal excretion. Stable exophytic right renal cyst and left renal atrophy. Remaining liver, pancreas, spleen, adrenal glands, kidneys, ureters, and bladder appear unremarkable. There remains mild aortoiliac calcifications. No AAA or pathologic retroperitoneal lymphadenopathy. Osseous structures again demonstrate degenerative changes throughout the thoracolumbar spine including minimal grade 1 L4 spondylolisthesis. Impression: 1. Colonic diverticulosis again with abnormal sigmoid colon as detailed favoring diverticulitis. Underlying mass not completely excluded given recurrency. 2. Well-circumscribed nonenhancing walled off fluid collection interposed between the sigmoid colon/rectum and urinary bladder measures smaller with respect to pelvic sonogram July 19, 2018. Rule out abscess versus lymphocele versus ovary cyst. 3. Stable small hiatal hernia, right renal cyst, degenerative spondylosis, and grade [address] DI 28.13
[2018-11-05] MEDS: Pepcid 20 MG PO SCH ×2 (10:25→21:47)
[2018-11-05] MEDS: Sodium Chloride 0.9% 1000 ML 1,000 ML IV SCH ×2 (10:25→22:12)
[2018-11-05] MEDS: ENOXAPARIN SODIUM SQ SCH (11:30)
[2018-11-05] MEDS: BENTYL 20 MG PO SCH (11:56)
[2018-11-05] MEDS: Zestril 10 MG PO SCH (11:58)
[2018-11-05] MEDS: ECOTRIN 81 MG PO SCH (14:53)
[2018-11-05] MEDS: Zocor 10MG PO SCH (21:47)
[2018-11-05] MEDS ORDERED: NON-FORMULARY ITEM (Atorvastatin Calcium [Atorvastatin Calcium] 10 MG) PO SCH (22:00)
[2018-11-06] MEDS: FLAGYL 500 MG IVPB 500 MG/100 ML BAG IV SCH ×4 (00:34→19:31)
[2018-11-06] MEDS: Zofran 4 MG/2 ML VIAL IV PRN (07:45)
[2018-11-06] MEDS: Sodium Chloride 0.9% 1000 ML 1,000 ML IV SCH ×2 (10:07→23:19)
[2018-11-06] MEDS: ENOXAPARIN SODIUM SQ SCH (10:08)
[2018-11-06] MEDS: Zestril 10 MG PO SCH (10:08)
[2018-11-06] MEDS: Pepcid 20 MG PO SCH ×2 (10:08→21:54)
[2018-11-06] MEDS: ECOTRIN 81 MG PO SCH (10:08)
[2018-11-06] MEDS: BENTYL 20 MG PO SCH (10:08)
[2018-11-06] MEDS: Zosyn 3.375GM/100 Ml D5W 3.375 GM/100 ML IVPB IV SCH ×2 (12:04→21:54)
[2018-11-06] MEDS: PROTONIX 40 MG IV IV SCH (12:04)
[2018-11-06] MEDS: Zocor 10MG PO SCH (21:54)
[2018-11-07] MEDS: FLAGYL 500 MG IVPB 500 MG/100 ML BAG IV SCH ×5 (00:48→23:44)
[2018-11-07] MEDS: Zosyn 3.375GM/100 Ml D5W 3.375 GM/100 ML IVPB IV SCH ×3 (06:40→21:50)
[2018-11-07 07:20] LABS: Hematocrit 32.8 % (35-47); Hemoglobin 10.4 gm/dl (12.0-16.0); Mean Cell Volume 94.5 fl (78-100); Mean Corpuscular Hgb Concent. 31.7 g/dl (32-36); Mean Platelet Volume 9.8 fl (6-9.5); Platelet Count 263 K/mm3 (150-450); Red Blood Count 3.47 M/mm3 (4.1-5.4); Red Cell Distribution Width 13.4 % (11.5-14.0)
[2018-11-07 07:27] LABS: Mean Corpuscular Hemoglobin 29.9 pg (26-32)
[2018-11-07 07:40] LABS: ALBUMIN 3.3 g/dL (3.5-5.0); ANION GAP 12.2 MEQ/L (5-15); BILIRUBIN,TOTAL 0.4 mg/dL (0.2-1.3); Calcium 8.4 mg/dL (8.4-10.2); Creatinine 1 1.12 mg/dL (0.52-1.04); Total Protein 6.4 g/dL (6.3-8.2)
[2018-11-07] MEDS: ECOTRIN 81 MG PO SCH (11:21)
[2018-11-07] MEDS: BENTYL 20 MG PO SCH (11:21)
[2018-11-07] MEDS: Pepcid 20 MG PO SCH ×2 (11:21→21:50)
[2018-11-07] MEDS: Zestril 10 MG PO SCH (11:21)
[2018-11-07] MEDS: PROTONIX 40 MG IV IV SCH (11:22)
[2018-11-07] MEDS: ENOXAPARIN SODIUM SQ SCH (11:22)
[2018-11-07] MEDS ORDERED: xanAX 0.5 MG PO PRN (19:03)
[2018-11-07] MEDS: Zocor 10MG PO SCH (21:50)
[2018-11-07] MEDS: Sodium Chloride 0.9% 1000 ML 1,000 ML IV SCH (23:44)
[2018-11-08 05:55] LABS: Hematocrit 32.2 % (35-47); Hemoglobin 10.1 gm/dl (12.0-16.0); Mean Corpuscular Hgb Concent. 31.4 g/dl (32-36); Mean Platelet Volume 9.9 fl (6-9.5); Platelet Count 256 K/mm3 (150-450); Red Blood Count 3.39 M/mm3 (4.1-5.4); Red Cell Distribution Width 13.6 % (11.5-14.0); White Blood Count 8.3 K/mm3 (4.0-10.5)
[2018-11-08] MEDS: FLAGYL 500 MG IVPB 500 MG/100 ML BAG IV SCH ×2 (05:58→11:42)
[2018-11-08 06:03] LABS: Mean Corpuscular Hemoglobin 29.7 pg (26-32)
[2018-11-08 06:19] LABS: ALBUMIN 3.1 g/dL (3.5-5.0); ANION GAP 10.4 MEQ/L (5-15); BILIRUBIN,TOTAL 0.2 mg/dL (0.2-1.3); Calcium 8.3 mg/dL (8.4-10.2); Creatinine 1 1.46 mg/dL (0.52-1.04); Total Protein 6.1 g/dL (6.3-8.2)
[2018-11-08] MEDS: Zosyn 3.375GM/100 Ml D5W 3.375 GM/100 ML IVPB IV SCH ×2 (07:31→13:24)
[2018-11-08] MEDS: Zofran 4 MG/2 ML VIAL IV PRN (08:06)
--- NOTE | 2018-11-08 09:13 | XRAY ---
Exam: CT of the abdomen and pelvis without IV contrast from 11/08/2018. CTDI: 28.13 Comparison: CT of the abdomen and pelvis without and with IV contrast from 11/04/2018. Indication: Follow-up abscess in colon/rectum/bladder area from 11/04/2018; history of appendectomy, hysterectomy, and cholecystectomy. Technique: Non-IV contrast axial images were obtained through the abdomen and pelvis. Reconstructed coronal and sagittal images were created and reviewed. Findings: The transverse heart size is borderline enlarged representing no change.. There is mild to moderate focal eventration of the anterior aspect of the right hemidiaphragm. I again note a minimal hiatal hernia. Scattered linear scarring and/or discoid atelectasis is again seen at both lung bases. No air space infiltrates or posterior pleural fluid is seen. Evaluation of the solid organs is limited without the use of IV contrast. No gross abnormality of the liver or spleen is seen. Surgical clips consistent with prior cholecystectomy are noted within the gallbladder fossa. The pancreas and adrenal glands appear unremarkable. There is relative generalized atrophy of the left kidney as compared to the right kidney. I again note a moderate sized cyst at the anterior lateral aspect of the upper pole of the right kidney measuring up to 4.3 cm in diameter representing no significant change. No right renal calculi or hydronephrosis is seen. Atherosclerotic vascular calcification is seen within the abdominal aorta. There is a mild focal bulge of the abdominal aorta at the lower L2 level which measures up to 2.7 cm in AP dimension and 2.45 cm in width. Technically, this is not aneurysmal at this point. It is unchanged in retrospect. No abnormal retroperitoneal lymphadenopathy is seen. I see no free intraperitoneal air or anterior abdominal wall hernia. The bowel loops appear nonobstructed. I note scattered diverticula within the descending colon and sigmoid colon. There appears to be some bowel wall thickening and pericolonic inflammatory changes about the distal descending colon and sigmoid colon. This is similar to the prior study and is most suggestive of diverticulitis. The urinary bladder appears unremarkable. The uterus is surgically absent. The appendix is not seen, and there is a history of prior appendectomy.. I again note an apparent fluid collection measuring an average of +24 Hounsfield units located between the vaginal cuff and urinary bladder measuring 7.0 cm in width, 5.5 cm in AP depth, and 5.5 cm in height. This is essentially unchanged from 11/04/2018. The deep pelvic sidewalls appear unremarkable. Vascular calcification is seen within the iliac arteries. There is a small stable calcified phlebolith within the lower left pelvis. No pathological enlarged pelvic lymph nodes are seen. The patient is obese. I see no acute fracture or bone destruction. I again see slight anterolisthesis of L4 over L5 without spondylolysis. This is likely due to advanced facet joint arthropathy which is seen at L4-L5 bilaterally. There is also marked degenerative disc disease at L5-S1 at least moderate degenerative disc disease at L2-L3.. Moderate generalized osteoarthritic changes are seen throughout much of the lower thoracic spine. Some vacuum phenomena is seen within both sacroiliac joints, right greater than left. Mild osteoarthritis of the symphysis pubis is seen. Impression: 1. I again note a relatively hypodense, oval-shaped apparent fluid collection between the rectosigmoid colon junction and vaginal cuff measuring about 7.0 cm in width, 5.5 cm in AP depth, and 5.5 cm in height. I don't believe this is appreciably changed from the prior study from 11/04/2018. 2. I note generalized diverticulosis within the descending colon and sigmoid colon. However, there is concomitant bowel wall thickening and pericolonic stranding about the distal descending colon and sigmoid colon most suggestive of superimposed diverticulitis. I see no free intraperitoneal fluid. 3. Status post cholecystectomy, appendectomy, and hysterectomy. 4. Moderate eventration of the anterior aspect of the right hemidiaphragm with mild bibasilar linear scarring/atelectasis, small hiatal hernia, generalized atrophy of the left kidney, moderate sized right renal cyst, mild focal bulging without aneurysm formation of the mid abdominal aorta, and skeletal findings, as described above, are again seen.
[2018-11-08] MEDS: ENOXAPARIN SODIUM SQ SCH (10:00)
[2018-11-08] MEDS: ECOTRIN 81 MG PO SCH (10:01)
[2018-11-08] MEDS: Pepcid 20 MG PO SCH (10:07)
[2018-11-08] MEDS: Zestril 10 MG PO SCH (10:08)
[2018-11-08] MEDS: PROTONIX 40 MG IV IV SCH (10:10)
[2018-11-08] MEDS: BENTYL 20 MG PO SCH (10:17)
--- NOTE | 2018-11-08 11:27 | XRAY ---
Exam: AP upright portable chest film from 10:36 AM on 11/08/2018. Comparison: AP upright portable chest film from 07/17/2018. Indication: Cough. Findings: The film was obtained in a lordotic projection. The heart size appears the upper limits of normal. A calcified, mildly tortuous descending thoracic aorta is seen. A few scattered bilateral perihilar and left upper lung field calcified granulomas are seen. There is mild eventration/elevation of the right hemidiaphragm representing no change. No air space infiltrates, vascular congestion, pneumothorax, or pleural fluid is seen. No acute osseous process is seen. There appears to be slight deviation of the lower thoracic spine toward the right near the thoracolumbar junction. This is unchanged. Impression: 1. No new air space infiltrates or other acute cardiopulmonary disease is seen, no change from 07/17/2018. 2. Other stable incidental findings, as discussed above.
[2018-11-08] MEDS: Sodium Chloride 0.9% 1000 ML 1,000 ML IV SCH (11:50)
[2018-11-08 16:14] VITALS: BP 177/77; PULSE 74; O2SAT 93
--- NOTE | 2018-11-09 09:55 | CONS ---
CONSULT DATE: 11/08/2018 HISTORY: The patient's nausea currently is resolved. She is not having any significant pain at this point. She is actually hungry. She had been waiting, from what I understood, a follow up CT scan with oral contrast to evaluate the colon and decide whether radiologist could percutaneously drain the small pelvic collection. However, she had the follow up CT that did not show any signs of a collection. It should be noted that when she had her scan a few days ago that the collection was actually smaller than it was back in July. She apparently had this collection since July. The patient is afebrile. White count 8.3. Vital signs stable. She is nontoxic. I do not feel she needs any emergency surgical intervention at this point. I had a long discussion with the patient. She has not had a recent colonoscopy. I have reviewed the scan with Dr. Oconnor, the radiologist here for the next several days. He feels she has got some chronic diverticular disease changes. He did not see any bubbles to suggest that this collection in the pelvis was infected. Again as mentioned before had been there since July and maybe a little bit smaller. No significant changes since last week. Any drainage of this collection likely will require evaluation in [place] and interventional therapy consider draining the collection. At this time again no emergent surgery necessary as this collection does not seem to be infected as it has been there since July and she is nontoxic and afebrile. I do feel she would benefit from colonoscopy to make sure she does not have any polyps, masses or other lesions in her colon that would warrant a definitive operation. Otherwise discussed that this appears to be simple collection with no bubbles in it currently with the family. I did not feel it would necessarily be easy situation just to stick a laparoscope in there given her past history of hysterectomy. Likely she has pelvic adhesions given the fact that this is down lower by the rectum, might force into doing an open intervention which I do not feel is her best interest as this does not appear to be acute infection at this time so I feel it is in her best interest to just to do that without looking at the colon first. Also discussed the option if the etiology of this fluid collection could be old diverticular seroma versus lymphocele, could be even ovarian remnant cyst. Although it is not septated could consider checking some tumor markers to make sure they are not suspiciously elevated sending her to a lumber handler. Otherwise, it may be simpler to send her to [facility] and having them drain this collection as I am not convinced that this collection is acute infection. I had a long discussion with the family and the patient. They prefer to go ahead and order tumor markers today, see about a colonoscopy. As I am leaving town in a day to day and a half and she has not started bowel prep yet, likely would have to see one of my partners who will be available later in the week possibly to proceed with colonoscopy. Her chronic intermittent aches and pains may be related to some diverticular disease. She might even need consideration of elective diverticular resection. At this point, no emergent surgery necessary. The family prefers to go ahead and check tumor markers. They understand those will take a week or so to come back. Also, I will see if one of my partners will be available for colonoscopy later in the week and determine ultimately if she would benefit from any open or laparoscopic-assisted surgical intervention after that. As Dr. Ko is out of the office today, will try to get a hold of him to update him of the plan.
== END 2018-11-08 17:22 | disposition home or self-care (01) | DRG 948 ==
LOC: ED 18:17 → MED SURG 23:01 → OBSVTOIN 11-06 09:30
PROVIDERS: ADMIT Family Medicine; ATTEND Family Medicine
DX: R18.8 Other ascites (principal); K57.32 Diverticulitis of large intestine without perforation or abscess without bleeding; N30.00 Acute cystitis without hematuria; I10 Essential (primary) hypertension; Z79.899 Other long term (current) drug therapy
CPT/HCPCS: 36000; 36415; 71045; 74176; 74178; 80048; 80053; 81001; 82150; 82378; 83605; 83690; 85025; 85027; 85610; 86301; 86304; 87086; 93005; 94760; 96360; 96374; 99285; G0378; 74177; 99284; J0696; J1170; J1650; J2270; J2405; J2543; A9270-GY

== ENCOUNTER 2018-11-11 10:12 | Day surgery (SDC) | payer MEDICARE, OTHER ==
[2018-11-11] MEDS ORDERED: Lactated Ringers 1,000 ML IV SCH (10:30)
[2018-11-11] MEDS ORDERED: Versed 2 MG/2 ML Injection IV PRN (11:40)
[2018-11-11] MEDS ORDERED: Ketamine HCl 50 MG/ML ONE (12:11)
[2018-11-11] MEDS ORDERED: DIPRIVAN 200 MG/20 ML IV ONE (12:13)
[2018-11-11 13:16] VITALS: O2SAT 94
[2018-11-11 13:32] VITALS: BP 158/95; PULSE 84
--- NOTE | 2018-11-12 11:12 | OP ---
SURGERY DATE/TIME: 11/11/2018 1205 PREOPERATIVE DIAGNOSIS: Recent diverticulosis. POSTOPERATIVE DIAGNOSIS: Recent diverticulosis; limited 30 cm with severe diverticulosis preventing further advancement. PROCEDURE: Colonoscopy. SURGEON: Abram Ko M.D. ANESTHESIA: MAC. COMPLICATIONS: None. CONDITION: Stable. INDICATION: A patient requiring evaluation for diverticulosis and pelvic fluid collection. DESCRIPTION OF PROCEDURE: She was taken to endoscopy. Left lateral decubitus position. Anal digital examination satisfactory. Scope introduced. Rectum satisfactory. The sigmoid was navigated for about 15 cm. There was marked angulation and could not be further navigated. It looks like surgical intervention is warranted regardless unless she has preinhibited medical risk. The scope was then withdrawn. The patient tolerated the procedure satisfactorily.
== END 2018-11-11 13:40 | disposition home or self-care (01) ==
LOC: SDC 10:12
PROVIDERS: ATTEND Surgery
DX: K57.30 Diverticulosis of large intestine without perforation or abscess without bleeding (principal)
CPT/HCPCS: 99100; J2250; J2704

== ENCOUNTER 2018-11-16 14:13 | Inpatient (IN) | payer MEDICARE, OTHER ==
[2018-11-16] MEDS ORDERED: Sodium Chloride 0.9% 1000 ML 1,000 ML IV SCH (16:30)
[2018-11-16] MEDS ORDERED: XANAX 1 MG PO PRN (16:37)
[2018-11-16] MEDS: FLAGYL 500 MG IVPB 500 MG/100 ML BAG IV SCH ×2 (16:39→22:04)
[2018-11-16] MEDS: VANCOMYCIN 25MG/ML ORAL SOLUTION COMPOUND KIT PO SCH (16:41)
[2018-11-16] MEDS ORDERED: VANCOMYCIN HCL CAPSULE PO SCH (18:00)
[2018-11-16] MEDS: ANASPAZ 0.125 MG PO PRN ×2 (18:08→22:04)
[2018-11-16] MEDS ORDERED: NON-FORMULARY ITEM (Atorvastatin Calcium [Atorvastatin Calcium] 10 MG) PO SCH (22:00)
[2018-11-16] MEDS: Zocor 10MG PO SCH (22:03)
[2018-11-17] MEDS: VANCOMYCIN 25MG/ML ORAL SOLUTION COMPOUND KIT PO SCH ×6 (00:07→23:49)
[2018-11-17] MEDS: Sodium Chloride 0.9% W/ 20 mEq KCl/LITER 1,000 ML IV SCH ×3 (03:45→21:22)
[2018-11-17] MEDS: ANASPAZ 0.125 MG PO PRN ×5 (03:45→23:51)
[2018-11-17 04:30] LABS: Hematocrit 36.3 % (35-47); Hemoglobin 11.7 gm/dl (12.0-16.0); Mean Corpuscular Hemoglobin 30.3 pg (26-32); Mean Corpuscular Hgb Concent. 32.2 g/dl (32-36); Mean Platelet Volume 10.1 fl (6-9.5); Platelet Count 220 K/mm3 (150-450); Red Blood Count 3.86 M/mm3 (4.1-5.4); Red Cell Distribution Width 14.6 % (11.5-14.0); White Blood Count 23.2 K/mm3 (4.0-10.5)
[2018-11-17 04:42] LABS: ANION GAP 13.7 MEQ/L (5-15); Calcium 8.1 mg/dL (8.4-10.2); Creatinine 1 1.12 mg/dL (0.52-1.04); Potassium 3.2 mmol/L (3.5-5.1)
[2018-11-17] MEDS: FLAGYL 500 MG IVPB 500 MG/100 ML BAG IV SCH ×3 (06:12→21:22)
[2018-11-17] MEDS ORDERED: TYLENOL 325 MG PO PRN (09:14)
[2018-11-17] MEDS ORDERED: Klor Con 10 MEQ PO SCH (09:15)
[2018-11-17] MEDS: ECOTRIN 81 MG PO SCH (10:30)
[2018-11-17] MEDS: MORPHINE SULFATE 2 MG INJ IV PRN ×5 (10:30→20:25)
[2018-11-17] MEDS: Zestril 10 MG PO SCH (10:31)
--- NOTE | 2018-11-17 10:32 | XRAY ---
Indication: Lower abdomen/pelvic pain 3 months. Multiple contiguous axial images obtained through the abdomen and pelvis without contrast as ordered. Comparison: November 04 and November 08, 2018. Lung bases again demonstrates bibasilar atelectasis/scarring. Heart is not enlarged. Stable small hiatal hernia. Noncontrasted stomach and bowel loops appear nonobstructed. Patient again reports appendectomy, cholecystectomy, and hysterectomy. Stable scattered colonic diverticulosis with worsening diverticulitis now involving the entire descending and sigmoid colon. Also new tiny left colic gutter and pelvic free fluid. Stable 7 cm walled off fluid collection interposed between the rectum and vaginal cuff. No free air. Stable exophytic right renal cyst and left renal atrophy. Remaining liver, pancreas, spleen, adrenal glands, kidneys, ureters, and bladder appear unremarkable for noncontrast exam. Stable mild scattered aortoiliac calcifications without AAA. Osseous structures again demonstrates degenerative changes throughout the thoracolumbar spine including minimal grade 1 L4 spondylolisthesis. Impression: 1. Worsening descending and sigmoid diverticulitis with new tiny left colic gutter and pelvic free fluid. No free air. 2. Stable indeterminate pelvis walled off fluid collection, small hiatal hernia, right renal cyst, left renal atrophy, multilevel degenerative spondylosis, and grade [address] DI 35.16
[2018-11-17 11:55] LABS: 027 TOX PROD PRESUMPTIVE NEGATIVE (NEGATIVE); TOXIGENIC C. DIFF ORG POSITIVE (NEGATIVE)
[2018-11-17] MEDS: Sodium Chloride 0.9% 10 ML FLUSH Syringe IV PRN (18:01)
[2018-11-17] MEDS: Zocor 10MG PO SCH (21:23)
[2018-11-18] MEDS: MORPHINE SULFATE 2 MG INJ IV PRN ×3 (00:14→06:56)
[2018-11-18 04:52] LABS: Hematocrit 33.1 % (35-47); Hemoglobin 10.7 gm/dl (12.0-16.0); Mean Corpuscular Hgb Concent. 32.3 g/dl (32-36); Mean Platelet Volume 10.8 fl (6-9.5); Platelet Count 228 K/mm3 (150-450); Red Blood Count 3.52 M/mm3 (4.1-5.4); Red Cell Distribution Width 14.4 % (11.5-14.0); White Blood Count 19.1 K/mm3 (4.0-10.5)
[2018-11-18 05:03] LABS: Mean Corpuscular Hemoglobin 30.3 pg (26-32)
[2018-11-18 05:09] LABS: ANION GAP 12.2 MEQ/L (5-15); BLOOD UREA NITROGEN 10 mg/dL (7-17); CHLORIDE 110 mmol/L (98-107); Calcium 7.8 mg/dL (8.4-10.2); Carbon Dioxide 23 mmol/L (22-30); Creatinine 1 0.89 mg/dL (0.52-1.04); Glucose 111 mg/dL (74-106); Potassium 3.3 mmol/L (3.5-5.1); SODIUM 142 mmol/L (137-145)
[2018-11-18] MEDS: FLAGYL 500 MG IVPB 500 MG/100 ML BAG IV SCH ×3 (05:48→22:00)
[2018-11-18] MEDS: VANCOMYCIN 25MG/ML ORAL SOLUTION COMPOUND KIT PO SCH (05:48)
[2018-11-18] MEDS: Sodium Chloride 0.9% W/ 20 mEq KCl/LITER 1,000 ML IV SCH ×2 (05:57→16:34)
[2018-11-18] MEDS ORDERED: Zofran 4 MG/2 ML VIAL IV PRN (08:03)
--- NOTE | 2018-11-18 08:10 | PCM.NOTE ---
Date and Time: 11/18/18805 Subjective Assessment: patient requiring morphine for pain, very nauseated this am and uncomfortable. not having much diarrhea at this time, being treated for c diff. per family her condition is worsening. she had a known walled off pelvic fluid collection, had colonoscopy with surgery last week and will likely need surgery for resection according to family Objective Exam General Appearance: no apparent distress, mild distress, obese Neurologic Exam: alert, 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 Respiratory Exam: normal breath sounds, lungs clear, No respiratory distress Cardiovascular Exam: regular rate/rhythm, normal heart sounds Gastrointestinal/Abdomen Exam: soft, tenderness, No mass, No guarding Extremity Exam: normal inspection, normal range of motion OBJECTIVE DATA Vital Signs: Vital Signs - 24 hr Temp Pulse Resp BP Pulse Ox 11/18/18 07:58 98.5 F 83 20 157/68 95 11/18/18 04:04 98.4 F 91 H 22 162/76 94 L 11/18/18 00:00 98.5 F 85 18 135/60 94 L 11/17/18 19:14 99.3 F 76 16 154/79 96 11/17/18 16:00 18 11/17/18 15:21 99.9 F 90 18 140/65 11/17/18 12:00 98.0 F 72 18 141/80 94 L Pain Assessment - Last Documented Pain Intensity 8 Pain Scale Used 0-10 Pain Scale Intake and Output: Intake & Output 11/15/18 11/16/18 11/17/18 11/18/18 11:59 11:59 11:59 11:59 Intake Total 2301 4030 Output Total 606 Balance 1695 4030 Weight 112.5 kg Lab Results: Lab Results-Last 24 Hours 11/17/18 11/18/18 11/18/18 Range/Units 10:53 04:15 04:15 WBC 19.1 H (4.0-10.5) K/mm3 RBC 3.52 L (4.1-5.4) M/mm3 Hgb 10.7 L (12.0-16.0) gm/dl Hct 33.1 L (35-47) % MCV 94.0 (78-100) fl MCH 30.3 (26-32) pg MCHC 32.3 (32-36) g/dl RDW 14.4 H (11.5-14.0) % Plt Count 228 (150-450) K/mm3 MPV 10.8 H (6-9.5) fl Sodium 142 (137-145) mmol/L Potassium 3.3 L (3.5-5.1) mmol/L Chloride 110 H (98-107) mmol/L Carbon Dioxide 23 (22-30) mmol/L Anion Gap 12.2 (5-15) MEQ/L BUN 10 (7-17) mg/dL Creatinine 0.89 (0.52-1.04) mg/dL Estimated GFR > 60.0 ML/MIN Glucose 111 H (74-106) mg/dL Calcium 7.8 L (8.4-10.2) mg/dL C. difficile Screen POSITIVE (NEGATIVE) C.difficile [id number] PRESUMPTIVE NEGATIVE (NEGATIVE) Radiology Exams: Radiology Procedures Category Date Time Status ABDOMEN AND PELVIS W/0 CONTRAS [CT] Routine Exams 11/17/18 09:03 Completed Assessment/Plan (1) Diverticulitis Current Visit: No Status: Acute Assessment & Plan: on flagyl and vanc for + c diff with diarrhea on arrival, will add zosyn secondary to worsening diverticulitis. she is not having significant diarrhea and c diff was present with organism but negative for NAP gene Code(s): K57.92 - DVTRCLI OF INTEST, PART UNSP, W/O PERF OR ABSCESS W/O BLEED (2) Pelvic fluid collection Current Visit: No Status: Acute Assessment & Plan: make NPO, ?abscess. IV abx and surgery consult ordered Code(s): R18.8 - OTHER ASCITES (3) Failure of outpatient treatment Current Visit: No Status: Acute Code(s): Z78.9 - OTHER SPECIFIED HEALTH STATUS
[2018-11-18] MEDS: Zestril 10 MG PO SCH (08:21)
[2018-11-18] MEDS: Zosyn 3.375GM/100 Ml D5W 3.375 GM/100 ML IVPB IV SCH ×4 (10:30→23:47)
[2018-11-18] MEDS: MORPHINE SULFATE 4 MG INJ IV PRN ×4 (10:30→20:43)
[2018-11-18] MEDS: ECOTRIN 81 MG PO SCH (12:14)
[2018-11-18] MEDS: VANCOMYCIN HCL CAPSULE PO SCH ×3 (12:32→23:47)
[2018-11-18] MEDS: Zofran 4 MG/2 ML VIAL IV PRN (13:43)
[2018-11-18] MEDS: ANASPAZ 0.125 MG PO PRN (20:44)
[2018-11-18] MEDS: Zocor 10MG PO SCH (22:00)
[2018-11-19] MEDS: MORPHINE SULFATE 4 MG INJ IV PRN ×3 (00:52→22:25)
[2018-11-19] MEDS: Sodium Chloride 0.9% W/ 20 mEq KCl/LITER 1,000 ML IV SCH ×3 (02:53→22:35)
[2018-11-19] MEDS: ANASPAZ 0.125 MG PO PRN ×2 (03:40→22:25)
[2018-11-19 05:04] LABS: Hematocrit 33.9 % (35-47); Hemoglobin 10.6 gm/dl (12.0-16.0); Mean Cell Volume 96.3 fl (78-100); Mean Corpuscular Hemoglobin 30.1 pg (26-32); Mean Corpuscular Hgb Concent. 31.3 g/dl (32-36); Mean Platelet Volume 10.5 fl (6-9.5); Platelet Count 257 K/mm3 (150-450); Red Blood Count 3.52 M/mm3 (4.1-5.4); Red Cell Distribution Width 14.6 % (11.5-14.0); White Blood Count 16.9 K/mm3 (4.0-10.5)
[2018-11-19 05:09] LABS: ALBUMIN 2.6 g/dL (3.5-5.0); ANION GAP 12.1 MEQ/L (5-15); BILIRUBIN,TOTAL 0.3 mg/dL (0.2-1.3); Calcium 7.9 mg/dL (8.4-10.2); Creatinine 1 0.98 mg/dL (0.52-1.04); MAGNESIUM 1.8 mg/dL (1.6-2.3); Total Protein 5.3 g/dL (6.3-8.2)
[2018-11-19 05:14] LABS: Potassium 4.7 mmol/L (3.5-5.1)
[2018-11-19 05:34] LABS: Eosinophil 2 % (0.00-3.0); Lymphocytes 15 % (24-44); Monocyte 8 % (0.0-12.0); Neutrophils 75 % (36.0-66.0); Platelet Estimate NORMAL (NORMAL); Total Cells Counted 100
[2018-11-19] MEDS: Zosyn 3.375GM/100 Ml D5W 3.375 GM/100 ML IVPB IV SCH ×3 (05:57→17:12)
[2018-11-19] MEDS: VANCOMYCIN HCL CAPSULE PO SCH ×3 (05:57→17:12)
[2018-11-19] MEDS: FLAGYL 500 MG IVPB 500 MG/100 ML BAG IV SCH ×3 (05:57→22:24)
--- NOTE | 2018-11-19 08:21 | PCM.NOTE ---
Date and Time: 11/19/18817 Subjective Assessment: patient feels a lot better this morning, pain and nausea are much improved. she is currently NPO awaiting surgery consult. Objective Exam General Appearance: no apparent distress, obese Neurologic Exam: alert, 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, cooperative Respiratory Exam: normal breath sounds, lungs clear, No respiratory distress Cardiovascular Exam: regular rate/rhythm, normal heart sounds Gastrointestinal/Abdomen Exam: soft, tenderness (LLQ), No distention, No mass, No guarding, No rebound Extremity Exam: normal inspection, normal range of motion OBJECTIVE DATA Vital Signs: Vital Signs - 24 hr Temp Pulse Resp BP Pulse Ox 11/19/18 07:37 97.9 F 92 H 20 158/72 94 L 11/19/18 04:00 97.8 F 70 18 134/63 95 11/18/18 23:37 99.6 F 78 16 121/80 94 L 11/18/18 20:00 98.5 F 74 16 144/63 94 L 11/18/18 15:24 98.1 F 79 22 167/78 93 L 11/18/18 12:00 18 11/18/18 11:48 98.5 F 82 18 137/63 92 L Pain Assessment - Last Documented Pain Intensity 4 Pain Scale Used 0-10 Pain Scale Intake and Output: Intake & Output 11/16/18 11/17/18 11/18/18 11/19/18 11:59 11:59 11:59 11:59 Intake Total 2301 4150 3147 Output Total 606 100 Balance 1695 4150 3047 Weight 112.5 kg 112.5 kg Lab Results: Lab Results-Last 24 Hours 11/19/18 11/19/18 Range/Units 04:15 04:15 WBC 16.9 H (4.0-10.5) K/mm3 RBC 3.52 L (4.1-5.4) M/mm3 Hgb 10.6 L (12.0-16.0) gm/dl Hct 33.9 L (35-47) % MCV 96.3 (78-100) fl MCH 30.1 (26-32) pg MCHC 31.3 L (32-36) g/dl RDW 14.6 H (11.5-14.0) % Plt Count 257 (150-450) K/mm3 MPV 10.5 H (6-9.5) fl Segmented Neutrophils 75 H (36.0-66.0) % Lymphocytes (Manual) 15 L (24-44) % Monocytes (Manual) 8 (0.0-12.0) % Eosinophils (Manual) 2 (0.00-3.0) % Platelet Estimate NORMAL (NORMAL) RBC Morphology NORMAL Sodium 145 (137-145) mmol/L Potassium 4.7 D (3.5-5.1) mmol/L Chloride 113 H (98-107) mmol/L Carbon Dioxide 24 (22-30) mmol/L Anion Gap 12.1 (5-15) MEQ/L BUN 9 (7-17) mg/dL Creatinine 0.98 (0.52-1.04) mg/dL Estimated GFR 58.5 ML/MIN Glucose 95 (74-106) mg/dL Calcium 7.9 L (8.4-10.2) mg/dL Magnesium 1.8 (1.6-2.3) mg/dL Total Bilirubin 0.30 (0.2-1.3) mg/dL AST 11 L (14-36) U/L ALT 8 (0-35) U/L Alkaline Phosphatase 42 (38-126) U/L Serum Total Protein 5.3 L (6.3-8.2) g/dL Albumin 2.6 L (3.5-5.0) g/dL Radiology Exams: Radiology Procedures Category Date Time Status ABDOMEN AND PELVIS W/0 CONTRAS [CT] Routine Exams 11/17/18 09:03 Completed Multi-Disciplinary Progress Notes: Multi-Disciplinary Progress Notes 11/18/18 15:00 (created 11/18/18 15:20) Case Management Note by Lyn Jacinto FEELS POORLY TODAY. DENIES NEEDS AT PRESENT. FAMILY PRESENT IN ROOM. AWAIT SURGEON TO CONSULT. REPORTS STILL HAVING DIARRHEA STOOLS. Initialized on 11/18/18 15:20 - END OF NOTE Assessment/Plan (1) Diverticulitis Current Visit: No Status: Acute Assessment & Plan: added zosyn on 11/[address] showed worsening sigmoid diverticulitis. wbc has improved, awaiting surgery consult. will likely start clear liquid diet if no immediate intervention is planned on Dr Ko's part Code(s): K57.92 - DVTRCLI OF INTEST, PART UNSP, W/O PERF OR ABSCESS W/O BLEED (2) C. difficile colitis Current Visit: Yes Status: Acute Assessment & Plan: on IV flagyl and po vanc, stools are minimal at this time and improved Code(s): A04.72 - ENTEROCOLITIS D/T CLOSTRIDIUM DIFFICILE, NOT SPCF RECUR (3) Pelvic fluid collection Current Visit: No Status: Acute Assessment & Plan: this is a known finding, again she was scoped by Dr Ko last week and per family patient has been advised she will need a resection and evacuation of this pelvic fluid collection at some point. Code(s): R18.8 - OTHER ASCITES (4) Failure of outpatient treatment Current Visit: No Status: Acute Code(s): Z78.9 - OTHER SPECIFIED HEALTH STATUS
[2018-11-19] MEDS: Zestril 10 MG PO SCH (09:58)
[2018-11-19] MEDS: ECOTRIN 81 MG PO SCH (10:11)
[2018-11-19 11:58] LABS: Amourphous Crystal FEW /HPF (NEGATIVE); Appearance SLIGHTLY CLOUDY (CLEAR); Bacteria RARE /HPF (NEGATIVE); Bilirubin NEGATIVE (NEGATIVE); Blood NEGATIVE Ery/ul (0-5); Epithelial Cells MODERATE /HPF (FEW); Glucose NEGATIVE (NEGATIVE); Ketones TRACE (NEGATIVE); Leukocyte Esterase MODERATE (NEGATIVE); Mucus SLIGHT /HPF (NEGATIVE); Nitrite NEGATIVE (NEGATIVE); Non-Squamous Epithelial Cells RARE /HPF (FEW); Protein,Urine Dip 30 (Negative); Specific Gravity 1.021 (1.005-1.025); Urobilinogen NEGATIVE mg/dL (0-1); WBC 26-50 /HPF (0-5)
--- NOTE | 2018-11-19 14:39 | CONS ---
CONSULT DATE: 11/19/2018 HISTORY: This patient represents with Clostridium difficile colitis. The patient is known to my partners. Dr. Abram Ko recently did a colonoscopy on her only to 30 cm due to severe diverticulosis. She has had a chronic fluid collection measuring 7 cm in her pelvis. She represents with worsening abdominal pain, diarrhea and nausea which is worse with movement. She denied any chest pain or shortness of breath. REVIEW OF SYSTEMS: Twelve systems reviewed and negative except for in the history of present illness. PAST MEDICAL HISTORY: Hypertension. Osteoarthritis. Diverticulitis. PAST SURGICAL HISTORY: Appendectomy. Cholecystectomy. Joint replacement. Hysterectomy. SOCIAL HISTORY: Former smoker. FAMILY HISTORY: Noncontributory. PHYSICAL EXAMINATION: GENERAL: Mild distress. HEENT: Sclera nonicteric. Extraocular movements intact. NECK: Supple. No JVD. CHEST: Nonlabored breathing. ABDOMEN: Soft, obese, tender to palpation left lower quadrant and left lateral abdomen. No guarding or rebound. Moderate tenderness to deep palpation. EXTREMITIES: No peripheral edema. NEURO: Awake, alert, oriented. PSYCH: Appropriate mood and affect. LAB DATA AND TESTS: The white blood cells initially 23,000 and today it is 16.9, hemoglobin 10.6, PLT count 257,000. Creatinine 0.89. CT scan shows descending and sigmoid diverticulitis with some free fluid in the left gutter and the pelvis as well as a 7 cm fluid collection between the rectum and vaginal cuff that is chronic. Clostridium difficile positive. ASSESSMENT AND PLAN: Clostridium difficile colitis and possibly also diverticulitis as well as chronic pelvic fluid collection. The patient appears to be improving with treatment for Clostridium difficile colitis. Her white count is improving. Will plan to continue medical treatment of her Clostridium difficile colitis. She may need sigmoid and left colectomy at some point but if possible it would be better to resolve her Clostridium difficile colitis medically first before undergoing surgery. I will continue to follow. No urgent need for surgical intervention at this time.
[2018-11-19] MEDS ORDERED: Mylicon 80MG PO PRN (14:55)
[2018-11-19] MEDS: Zofran 4 MG/2 ML VIAL IV PRN ×2 (15:00→22:35)
[2018-11-19] MEDS: Zocor 10MG PO SCH (22:24)
[2018-11-20] MEDS: VANCOMYCIN HCL CAPSULE PO SCH ×4 (01:30→17:10)
[2018-11-20] MEDS: Zosyn 3.375GM/100 Ml D5W 3.375 GM/100 ML IVPB IV SCH ×4 (01:31→17:10)
[2018-11-20] MEDS: FLAGYL 500 MG IVPB 500 MG/100 ML BAG IV SCH ×3 (05:45→22:14)
[2018-11-20 05:47] LABS: Hemoglobin 10.1 gm/dl (12.0-16.0); Mean Cell Volume 92.8 fl (78-100); Mean Corpuscular Hemoglobin 30.2 pg (26-32); Mean Corpuscular Hgb Concent. 32.6 g/dl (32-36); Platelet Count 262 K/mm3 (150-450); Red Blood Count 3.34 M/mm3 (4.1-5.4); Red Cell Distribution Width 14.5 % (11.5-14.0); White Blood Count 14.9 K/mm3 (4.0-10.5)
[2018-11-20 06:08] LABS: ALBUMIN 2.7 g/dL (3.5-5.0); ALKALINE PHOSPHATASE 41 U/L (38-126); ANION GAP 10.5 MEQ/L (5-15); BLOOD UREA NITROGEN 7 mg/dL (7-17); CHLORIDE 113 mmol/L (98-107); Calcium 7.8 mg/dL (8.4-10.2); Carbon Dioxide 23 mmol/L (22-30); Creatinine 1 0.82 mg/dL (0.52-1.04); Glucose 85 mg/dL (74-106); SGOT/AST 12 U/L (14-36); SGPT/ALT 7 U/L (0-35); SODIUM 142 mmol/L (137-145); Total Protein 5.6 g/dL (6.3-8.2)
[2018-11-20 06:13] LABS: Potassium 3.2 mmol/L (3.5-5.1)
[2018-11-20] MEDS: Sodium Chloride 0.9% W/ 20 mEq KCl/LITER 1,000 ML IV SCH ×3 (07:32→15:43)
[2018-11-20 08:06] LABS: Eosinophil 1 % (0.00-3.0); Lymphocytes 6 % (24-44); Monocyte 7 % (0.0-12.0); Neutrophils 86 % (36.0-66.0); Total Cells Counted 100
[2018-11-20 08:07] LABS: Platelet Estimate NORMAL (NORMAL)
[2018-11-20] MEDS: ECOTRIN 81 MG PO SCH (09:01)
[2018-11-20] MEDS: Zestril 10 MG PO SCH (09:01)
[2018-11-20] MEDS ORDERED: Zestril 10 MG PO STA (10:41)
[2018-11-20] MEDS ORDERED: Klor Con 10 MEQ PO ONE (10:43)
--- NOTE | 2018-11-20 10:49 | PCM.NOTE ---
Date and Time: 11/20/18 1044 Subjective Assessment: She reports two very loose stools this AM. Her daughter and sister are at the bedside and state she has been having problems with her abdomen on and off this year and they keep being told that she is "fine". I told them it was my understanding that Dr. Fela Ko does think she needs surgery but that he did not want to do this while she had the active C. diff infection. Patient reports nausea and vomiting x 2 yesterday. She reports her abdominal pain is under control with the pain medication. They are concerned about her high blood pressure. Her nurse did give her lisinopril early and it looks like her blood pressure has been fluctuating throughout her hospital stay but higher today. She denies chest pain or shortness of breath. - Review of Systems Constitutional: Fatigue Eyes: No Symptoms Ears, Nose, & Throat: No Symptoms Respiratory: No Symptoms Cardiac: No Symptoms Abdominal/Gastrointestinal: Abdominal Pain, Nausea, Vomiting, Diarrhea Genitourinary Symptoms: No Symptoms Musculoskeletal: No Symptoms Objective Exam General Appearance: no apparent distress, obese Neurologic Exam: alert, cooperative, normal mood/affect Skin Exam: normal color, warm, dry Respiratory Exam: normal breath sounds, lungs clear, No crackles/rales, No rhonchi, No wheezing Cardiovascular Exam: regular rate/rhythm, normal heart sounds, No murmur, No friction rub, No gallop Gastrointestinal/Abdomen Exam: soft, distention, other (left lower quadrant tenderness, hypoactive bowel sounds, no rigidity), No guarding Extremity Exam: other (no c/c/e) OBJECTIVE DATA Vital Signs: Vital Signs - 24 hr Temp Pulse Resp BP Pulse Ox 11/20/18 10:12 175/80 11/20/18 08:59 98.1 F 84 22 198/103 92 L 11/20/18 08:00 198/103 11/20/18 04:00 98.0 F 72 19 127/89 94 L 11/20/18 00:00 98.6 F 75 18 148/65 94 L 11/19/18 20:11 98.1 F 81 19 177/79 96 11/19/18 17:54 97.8 F 88 20 175/92 97 11/19/18 12:46 98.2 F 92 H 20 175/91 95 11/19/18 12:32 97.9 F 92 H 20 158/72 96 Pain Assessment - Last Documented Pain Intensity 0 Pain Scale Used 0-10 Pain Scale Intake and Output: Intake & Output 11/18/18 11/19/18 11/20/18 11/21/18 06:59 06:59 06:59 06:59 Intake Total 4450 3267 4096 Output Total 470 808 6679 Balance 3850 3167 2796 Weight 112.5 kg Lab Results: Lab Results-Last 24 Hours 11/19/18 11/20/18 11/20/18 Range/Units 11:30 05:43 05:43 WBC 14.9 H (4.0-10.5) K/mm3 RBC 3.34 L (4.1-5.4) M/mm3 Hgb 10.1 L (12.0-16.0) gm/dl Hct 31.0 L (35-47) % MCV 92.8 (78-100) fl MCH 30.2 (26-32) pg MCHC 32.6 (32-36) g/dl RDW 14.5 H (11.5-14.0) % Plt Count 262 (150-450) K/mm3 MPV 10.0 H (6-9.5) fl Segmented Neutrophils 86 H (36.0-66.0) % Lymphocytes (Manual) 6 L (24-44) % Monocytes (Manual) 7 (0.0-12.0) % Eosinophils (Manual) 1 (0.00-3.0) % Platelet Estimate NORMAL (NORMAL) RBC Morphology NORMAL Sodium 142 (137-145) mmol/L Potassium 3.2 L D (3.5-5.1) mmol/L Chloride 113 H (98-107) mmol/L Carbon Dioxide 23 (22-30) mmol/L Anion Gap 10.5 (5-15) MEQ/L BUN 7 (7-17) mg/dL Creatinine 0.82 (0.52-1.04) mg/dL Estimated GFR > 60.0 ML/MIN Glucose 85 (74-106) mg/dL Calcium 7.8 L (8.4-10.2) mg/dL Total Bilirubin 0.20 (0.2-1.3) mg/dL AST 12 L (14-36) U/L ALT 7 (0-35) U/L Alkaline Phosphatase 41 (38-126) U/L Serum Total Protein 5.6 L (6.3-8.2) g/dL Albumin 2.7 L (3.5-5.0) g/dL Urine Color YELLOW (YELLOW) Urine Appearance SLIGHTLY CLOUDY (CLEAR) Urine pH 5.0 (5-6) Ur Specific [place] 1.021 (1.005-1.025) Urine Protein 30 (Negative) Urine Ketones TRACE (NEGATIVE) Urine Blood NEGATIVE (0-5) Jerad/ul Urine Nitrite NEGATIVE (NEGATIVE) Urine Bilirubin NEGATIVE (NEGATIVE) Urine Urobilinogen NEGATIVE (0-1) mg/dL Ur Leukocyte Esterase MODERATE (NEGATIVE) Urine WBC (Auto) 26-50 (0-5) /HPF Urine RBC (Auto) 3-5 (0-2) /HPF U Epithel Cells (Auto) MODERATE (FEW) /HPF Urine Bacteria (Auto) RARE (NEGATIVE) /HPF U Non-Squamous Epi Cells RARE (FEW) /HPF Amorphous Crystals FEW (NEGATIVE) /HPF Granular Casts (Auto) 2-5 (NEGATIVE) /LPF Urine Mucus (Auto) SLIGHT (NEGATIVE) /HPF Urine Culture Reflexed YES (NO) Urine Glucose NEGATIVE (NEGATIVE) mg/dL Assessment/Plan (1) C. difficile colitis Current Visit: Yes Status: Acute Assessment & Plan: Continue with IV metronidazole and oral vancomycin. Continue with IV fluids. She continues to have severe diarrhea. General surgeon following. WBC improving. On exam her abdomen was distended with hypoactive bowel sounds so she continues to be acutely sick. Code(s): A04.72 - ENTEROCOLITIS D/T CLOSTRIDIUM DIFFICILE, NOT SPCF RECUR (2) Diverticulitis large intestine Current Visit: No Status: Acute Assessment & Plan: Continue zosyn. WBC is improving. General surgeon has seen patient and wants to wait on surgery with active C. diff infection. She has 7 cm walled off fluid collection seen on CT scan of abd/pelvis on admission but no intervention planned for this at this time. She had had a colonoscopy last week and they could not advance scope due to severe diverticulitis. Code(s): K57.32 - DVTRCLI OF LG INT W/O PERFORATION OR ABSCESS W/O BLEEDING (3) Hypertension Current Visit: No Status: Chronic Assessment & Plan: Will increase lisinopril from 10 mg to 20 mg and hydralazine ordered prn bp >180 /100. Will check TSH and EKG. Code(s): I10 - ESSENTIAL (PRIMARY) HYPERTENSION (4) Pelvic fluid collection Current Visit: No Status: Acute Assessment & Plan: Followed by general surgeon. Code(s): R18.8 - OTHER ASCITES (5) Hypokalemia due to excessive gastrointestinal loss of potassium Current Visit: Yes Status: Acute Assessment & Plan: Will replace with extra 40 Meq KCl orally and continue KCl in IV fluids. Will check magnesium level today and recheck electrolytes in AM. Code(s): E87.6 - HYPOKALEMIA (6) DVT prophylaxis Current Visit: Yes Status: Acute Assessment & Plan: Will start lovenox for DVT prophylaxis. Code(s): Z29.9 - ENCOUNTER FOR PROPHYLACTIC MEASURES, UNSPECIFIED
[2018-11-20] MEDS ORDERED: ENOXAPARIN SODIUM SQ ONE (11:01)
[2018-11-20] MEDS: ANASPAZ 0.125 MG PO PRN ×3 (11:02→15:59)
[2018-11-20] MEDS ORDERED: Magnesium 1 Gm / 100 Ml D5W*** 100 ML IV ONE (12:45)
[2018-11-20] MEDS ORDERED: Magnesium Sulfate 1 GM/2 ML VIAL IV ONE (13:00)
[2018-11-20] MEDS: Apresoline 25 MG TABLET PO PRN (13:09)
[2018-11-20] MEDS: MORPHINE SULFATE 4 MG INJ IV PRN ×2 (15:58→22:15)
[2018-11-20] MEDS ORDERED: hydroDIURIL 25 MG PO ONE (17:10)
[2018-11-20] MEDS: Zofran 4 MG/2 ML VIAL IV PRN (22:14)
[2018-11-20] MEDS: Zocor 10MG PO SCH (22:14)
[2018-11-20] MEDS: Sodium Chloride 0.9% 10 ML FLUSH Syringe IV PRN (22:16)
[2018-11-21] MEDS: VANCOMYCIN HCL CAPSULE PO SCH ×7 (01:02→21:00)
[2018-11-21] MEDS: Sodium Chloride 0.9% W/ 20 mEq KCl/LITER 1,000 ML IV SCH ×2 (01:02→14:01)
[2018-11-21] MEDS: Zosyn 3.375GM/100 Ml D5W 3.375 GM/100 ML IVPB IV SCH ×5 (01:03→23:48)
[2018-11-21] MEDS: ANASPAZ 0.125 MG PO PRN (01:05)
[2018-11-21] MEDS: Apresoline 25 MG TABLET PO PRN ×2 (04:03→17:52)
[2018-11-21] MEDS: Sodium Chloride 0.9% 10 ML FLUSH Syringe IV PRN (04:05)
[2018-11-21] MEDS: MORPHINE SULFATE 4 MG INJ IV PRN (04:05)
[2018-11-21] MEDS: Zofran 4 MG/2 ML VIAL IV PRN ×3 (04:06→21:15)
[2018-11-21] MEDS: FLAGYL 500 MG IVPB 500 MG/100 ML BAG IV SCH ×3 (06:08→21:00)
[2018-11-21 06:17] LABS: Hematocrit 33.1 % (35-47); Hemoglobin 10.8 gm/dl (12.0-16.0); Mean Cell Volume 91.9 fl (78-100); Mean Corpuscular Hgb Concent. 32.6 g/dl (32-36); Mean Platelet Volume 10.3 fl (6-9.5); Platelet Count 274 K/mm3 (150-450); Red Cell Distribution Width 14.6 % (11.5-14.0); White Blood Count 15.2 K/mm3 (4.0-10.5)
[2018-11-21 06:26] LABS: ANION GAP 12.2 MEQ/L (5-15); BLOOD UREA NITROGEN 5 mg/dL (7-17); CHLORIDE 110 mmol/L (98-107); Calcium 7.9 mg/dL (8.4-10.2); Carbon Dioxide 23 mmol/L (22-30); Creatinine 1 0.76 mg/dL (0.52-1.04); Glucose 89 mg/dL (74-106); Potassium 4.1 mmol/L (3.5-5.1); SODIUM 141 mmol/L (137-145)
[2018-11-21 08:10] LABS: Lymphocytes 10 % (24-44); Monocyte 6 % (0.0-12.0); Neutrophils 84 % (36.0-66.0); Total Cells Counted 100
[2018-11-21 08:12] LABS: Platelet Estimate NORMAL (NORMAL)
[2018-11-21] MEDS ORDERED: Zestril 20 MG PO SCH (10:00)
[2018-11-21] MEDS: ECOTRIN 81 MG PO SCH (10:11)
[2018-11-21] MEDS: ENOXAPARIN SODIUM SQ SCH (10:11)
[2018-11-21] MEDS: Zestril 20 MG PO SCH (10:52)
[2018-11-21] MEDS: hydroDIURIL 25 MG PO SCH (10:52)
--- NOTE | 2018-11-21 12:04 | PCM.NOTE ---
Date and Time: 11/21/18 1159 Subjective Assessment: Patient reports abdominal pain is better and didn't need pain medication yesterday and diarrhea better today. She reports that she had too much diarrhea yesterday to get up to a chair. Patient encouraged to try to do this again today. General surgeon saw her again yesterday. - Review of Systems Constitutional: Fatigue Eyes: No Symptoms Ears, Nose, & Throat: No Symptoms Respiratory: No Symptoms Cardiac: No Symptoms Abdominal/Gastrointestinal: Diarrhea, Other (abdominal distension) Genitourinary Symptoms: No Symptoms Musculoskeletal: No Symptoms Objective Exam General Appearance: no apparent distress, alert, obese Neurologic Exam: alert, cooperative, normal mood/affect Skin Exam: normal color, warm, dry, No rash Cardiovascular Exam: regular rate/rhythm, normal heart sounds, No murmur, No friction rub, No gallop Gastrointestinal/Abdomen Exam: soft, tenderness, distention, other (hyperactive bowel sounds, left lower quadrant tenderness; no rigidity), No guarding Extremity Exam: other (no c/c/e) OBJECTIVE DATA Vital Signs: Vital Signs - 24 hr Temp Pulse Resp BP Pulse Ox 11/21/18 08:00 98.5 F 81 18 158/74 95 11/21/18 03:57 98.3 F 92 H 20 184/83 98 11/21/18 00:00 97.9 F 79 19 131/80 96 11/20/18 20:23 98.7 F 71 18 158/74 95 11/20/18 17:11 98.5 F 79 20 186/84 97 11/20/18 14:00 98.5 F 80 20 184/74 94 L Pain Assessment - Last Documented Pain Intensity 2 Pain Scale Used [facility] Intake and Output: Intake & Output 11/19/18 11/20/18 11/21/18 11/22/18 06:59 06:59 06:59 06:59 Intake Total 3267 4096 2980 120 Output Total 100 1300 Balance 3167 2796 2980 120 Weight 112.5 kg Lab Results: Lab Results-Last 24 Hours 11/20/18 11/21/18 11/21/18 Range/Units 05:35 05:55 05:55 WBC 15.2 H (4.0-10.5) K/mm3 RBC 3.60 L (4.1-5.4) M/mm3 Hgb 10.8 L (12.0-16.0) gm/dl Hct 33.1 L (35-47) % MCV 91.9 (78-100) fl MCH 30.0 (26-32) pg MCHC 32.6 (32-36) g/dl RDW 14.6 H (11.5-14.0) % Plt Count 274 (150-450) K/mm3 MPV 10.3 H (6-9.5) fl Segmented Neutrophils 84 H (36.0-66.0) % Lymphocytes (Manual) 10 L (24-44) % Monocytes (Manual) 6 (0.0-12.0) % Platelet Estimate NORMAL (NORMAL) RBC Morphology NORMAL Sodium 141 (137-145) mmol/L Potassium 4.1 D (3.5-5.1) mmol/L Chloride 110 H (98-107) mmol/L Carbon Dioxide 23 (22-30) mmol/L Anion Gap 12.2 (5-15) MEQ/L BUN 5 L (7-17) mg/dL Creatinine 0.76 (0.52-1.04) mg/dL Estimated GFR > 60.0 ML/MIN Glucose 89 (74-106) mg/dL Calcium 7.9 L (8.4-10.2) mg/dL TSH 3rd Generation 0.574 (0.47-4.68) mIU/L Assessment/Plan (1) C. difficile colitis Current Visit: Yes Status: Acute Assessment & Plan: Continue oral vanc. Will change to qid dosing as she refused dose at 1-2 am today. Clinically improving, WBC stable. Code(s): A04.72 - ENTEROCOLITIS D/T CLOSTRIDIUM DIFFICILE, NOT SPCF RECUR (2) Diverticulitis large intestine Current Visit: No Status: Acute Assessment & Plan: Continue with zosyn, general surgeon is following also. Code(s): K57.32 - DVTRCLI OF LG INT W/O PERFORATION OR ABSCESS W/O BLEEDING (3) Hypertension Current Visit: No Status: Chronic Assessment & Plan: Started HCTZ yesterday and will continue. Continue lisinopril and increase dose to 40 mg. She also has hydralazine ordered as needed. Will decrease IV fluids as this may be contributing too. Code(s): I10 - ESSENTIAL (PRIMARY) HYPERTENSION (4) Pelvic fluid collection Current Visit: No Status: Acute Assessment & Plan: Management per general surgeon. They want to wait on any surgical intervention until C. Diff infection treated. Code(s): R18.8 - OTHER ASCITES (5) Hypokalemia due to excessive gastrointestinal loss of potassium Current Visit: Yes Status: Resolved Assessment & Plan: Resolved with replacement. Code(s): E87.6 - HYPOKALEMIA (6) DVT prophylaxis Current Visit: Yes Status: Acute Assessment & Plan: Continue lovenox. Code(s): Z29.9 - ENCOUNTER FOR PROPHYLACTIC MEASURES, UNSPECIFIED
[2018-11-21] MEDS ORDERED: hydroDIURIL 25 MG PO ONE (17:10)
[2018-11-21] MEDS: Zocor 10MG PO SCH (21:00)
[2018-11-22] MEDS: Phenergan 25 MG INJ IV PRN ×2 (00:02→20:01)
[2018-11-22] MEDS: Sodium Chloride 0.9% W/ 20 mEq KCl/LITER 1,000 ML IV SCH ×2 (03:35→09:08)
[2018-11-22 04:50] LABS: Hematocrit 34.3 % (35-47); Hemoglobin 11.5 gm/dl (12.0-16.0); Mean Cell Volume 89.1 fl (78-100); Mean Corpuscular Hgb Concent. 33.5 g/dl (32-36); Mean Platelet Volume 9.8 fl (6-9.5); Platelet Count 319 K/mm3 (150-450); Red Blood Count 3.85 M/mm3 (4.1-5.4); Red Cell Distribution Width 14.2 % (11.5-14.0); White Blood Count 12.6 K/mm3 (4.0-10.5)
[2018-11-22 04:54] LABS: Mean Corpuscular Hemoglobin 29.8 pg (26-32)
[2018-11-22 05:14] LABS: ANION GAP 13.5 MEQ/L (5-15); BLOOD UREA NITROGEN 4 mg/dL (7-17); CHLORIDE 106 mmol/L (98-107); Calcium 8.4 mg/dL (8.4-10.2); Carbon Dioxide 26 mmol/L (22-30); Creatinine 1 0.79 mg/dL (0.52-1.04); Glucose 98 mg/dL (74-106); SODIUM 142 mmol/L (137-145)
[2018-11-22] MEDS: Zosyn 3.375GM/100 Ml D5W 3.375 GM/100 ML IVPB IV SCH ×3 (05:30→17:11)
[2018-11-22] MEDS ORDERED: Klor Con 10 MEQ PO ONE (06:02)
[2018-11-22] MEDS: FLAGYL 500 MG IVPB 500 MG/100 ML BAG IV SCH ×3 (06:09→21:08)
[2018-11-22 07:08] LABS: BAND 3 % (0.0-2.0); Eosinophil 3 % (0.00-3.0); Lymphocytes 12 % (24-44); Monocyte 7 % (0.0-12.0); Neutrophils 75 % (36.0-66.0); Total Cells Counted 100
[2018-11-22 07:09] LABS: Platelet Estimate NORMAL (NORMAL)
[2018-11-22 07:10] LABS: Polychromasia 1+; Toxic Granulation 1+
--- NOTE | 2018-11-22 08:57 | PCM.NOTE ---
Date and Time: 11/22/1852 Subjective Assessment: 78 yr old female seen and examined this am. Patient reports that her abdominal pain has improved since yesterday. She reports 4 episodes of diarrhea yesterday 1 episode overnight and 2 episodes this am. Patient was having nausea in the night was given Zofran which did not alleviate her nausea so phenergan was given. Patient reports her nausea has subsided. Discussed with patient the possibility of needing a feeding tube and she declined. Discussed with patient the possibility of needing to start TPN. Family recommended PICC placement as patient is a hard stick and has only one IV access site that was difficult to obtain yesterday. - Review of Systems Constitutional: Weakness Respiratory: Short Of Breath (occasionally with getting out of bed), No Cough Cardiac: Edema, No Chest Pain Abdominal/Gastrointestinal: Abdominal Pain, Nausea, Diarrhea, Appetite Changes ( Decreased appetite reports no desire to eat), No Vomiting, No Constipation Genitourinary Symptoms: No Urgency, No Flank Pain Skin: No Symptoms Hematologic/Lymphatic: No Anemia Objective Exam General Appearance: moderate distress Neurologic Exam: alert, 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, cooperative, normal mood/affect Skin Exam: warm, dry Eye Exam: eyes nml inspection, No scleral icterus Ears, Nose, Throat Exam: moist mucous membranes Neck Exam: normal inspection Respiratory Exam: normal breath sounds, lungs clear, No respiratory distress Cardiovascular Exam: regular rate/rhythm, normal heart sounds, No murmur, No friction rub, No gallop, No tachycardia Gastrointestinal/Abdomen Exam: soft, tenderness (Tender periumbilical and left side.), distention, No normal bowel sounds (Hyperactive bowel sounds), No guarding, No rebound Extremity Exam: normal inspection, normal range of motion, No joint swelling, No pedal edema Back Exam: No CVA tenderness OBJECTIVE DATA Vital Signs: Vital Signs - 24 hr Temp Pulse Resp BP Pulse Ox 11/22/18 07:13 97.8 F 75 20 172/83 96 11/22/18 03:53 97.9 F 81 21 135/90 97 11/22/18 00:00 98.1 F 84 20 180/80 96 11/21/18 19:53 97.7 F 77 20 175/79 95 11/21/18 16:00 98.5 F 78 18 183/81 97 11/21/18 12:00 98.5 F 74 18 168/79 97 Pain Assessment - Last Documented Pain Intensity 0 Pain Scale Used 0-10 Pain Scale Intake and Output: Intake & Output 11/19/18 11/20/18 11/21/18 11/22/18 11:59 11:59 11:59 11:59 Intake Total 3147 4096 3100 2503 Output Total 100 1300 3500 Balance 3047 2796 3100 -997 Weight 112.5 kg 112.2 kg Lab Results: Lab Results-Last 24 Hours 11/22/18 11/22/18 Range/Units 04:25 04:25 WBC 12.6 H (4.0-10.5) K/mm3 RBC 3.85 L (4.1-5.4) M/mm3 Hgb 11.5 L (12.0-16.0) gm/dl Hct 34.3 L (35-47) % MCV 89.1 (78-100) fl MCH 29.8 (26-32) pg MCHC 33.5 (32-36) g/dl RDW 14.2 H (11.5-14.0) % Plt Count 319 (150-450) K/mm3 MPV 9.8 H (6-9.5) fl Segmented Neutrophils 75 H (36.0-66.0) % Band Neutrophils 3 H (0.0-2.0) % Lymphocytes (Manual) 12 L (24-44) % Monocytes (Manual) 7 (0.0-12.0) % Eosinophils (Manual) 3 (0.00-3.0) % Hypochromia Not Reportable Toxic Granulation 1+ Platelet Estimate NORMAL (NORMAL) RBC Morphology ABNORMAL Polychromasia 1+ Sodium 142 (137-145) mmol/L Potassium 3.0 L D (3.5-5.1) mmol/L Chloride 106 (98-107) mmol/L Carbon Dioxide 26 (22-30) mmol/L Anion Gap 13.5 (5-15) MEQ/L BUN 4 L (7-17) mg/dL Creatinine 0.79 (0.52-1.04) mg/dL Estimated GFR > 60.0 ML/MIN Glucose 98 (74-106) mg/dL Calcium 8.4 (8.4-10.2) mg/dL Assessment/Plan (1) C. difficile colitis Current Visit: Yes Status: Acute Assessment & Plan: Continue oral vanc. Clinically improving, WBC trending down to 12s. Patient may require PICC placement due to continuing episodes of diarrhea and difficulty with IV access. Patient may also require TPN due to lack of appetite and nutrition requirement. If patient is not tolerating PO liquids then TPN will need to be started. Code(s): A04.72 - ENTEROCOLITIS D/T CLOSTRIDIUM DIFFICILE, NOT SPCF RECUR (2) Hypokalemia Current Visit: Yes Status: Acute Assessment & Plan: Patient has been getting IV fluids with potassium repletion. Patient was given 40 meq of potassium this am. Will get repeat potassium this afternoon and replete as necessary. Patient is still having frequent episodes of diarrhea. Code(s): E87.6 - HYPOKALEMIA (3) Diverticulitis large intestine Current Visit: No Status: Acute Assessment & Plan: Patient is on zosyn and metronidazole for diverticulitis. WBC is improving and clinically patient appears to be improving. Will continue with IV antibiotics. Surgery is following patient and will follow their recommendation for proceeding with surgery when patient's cdiff infection has been resolved. Code(s): K57.32 - DVTRCLI OF LG INT W/O PERFORATION OR ABSCESS W/O BLEEDING (4) UTI (urinary tract infection) Current Visit: No Status: Acute Qualifiers: Urinary tract infection type: site unspecified Hematuria presence: without hematuria Qualified Code(s): N39.0 - Urinary tract infection, site not specified Assessment & Plan: Patient has VRE UTI that is resistant to all antibiotics but linezolid. Will start linezolid q12 hours and treatment duration should last approx 14 days. Code(s): N39.0 - URINARY TRACT INFECTION, SITE NOT SPECIFIED (5) Hypertension Current Visit: No Status: Chronic Assessment & Plan: Patient has hx of htn treated with lisinopril at home. She has required additional HTN meds in the hospital. This could be due to increased pain or fluid overload. Patient does not appear to be fluid overloaded in extremity but could have some abdominal edema. Will continue to monitor bp. Patient has PRN hydralazine if necessary. Patient's systolic numbers appeared to be mildly improved from 180s to 135s. Will continue to monitor Code(s): I10 - ESSENTIAL (PRIMARY) HYPERTENSION
[2018-11-22] MEDS: Zestril 20 MG PO SCH (09:13)
[2018-11-22] MEDS: VANCOMYCIN HCL CAPSULE PO SCH ×2 (09:13→13:13)
[2018-11-22] MEDS: hydroDIURIL 25 MG PO SCH (09:13)
[2018-11-22] MEDS: ECOTRIN 81 MG PO SCH (09:13)
[2018-11-22] MEDS: ENOXAPARIN SODIUM SQ SCH (09:14)
[2018-11-22 09:40] LABS: INR 1.44 (0.8-3.0); PROTIME 16.4 SECONDS (9.95-12.35)
[2018-11-22 09:42] LABS: PTT 41.5 SECONDS (25.3-37.0)
[2018-11-22] MEDS: Zyvox 600 MG IV PREMIX*** 300 ML IV SCH ×2 (10:58→21:19)
--- NOTE | 2018-11-22 14:46 | XRAY ---
Indication: Ultrasound guidance for PICC line placement. Initial sonographic imaging of the right upper extremity was performed for localization of patent veins. A patent basilic vein identified above the elbow. Ultrasound guidance was then used for PICC line insertion. Full PICC line insertion is reported separately.
--- NOTE | 2018-11-22 14:48 | XRAY ---
Indication: Long-term IV access and therapy for C. difficile infection. Informed consent obtained. Patient was placed on the fluoroscopic table in a supine position. Initial sonographic imaging of the right upper extremity was performed for localization of patent veins. The right upper extremity was then prepped and draped in sterile fashion. Tourniquet applied. 1% lidocaine plain used for local anesthesia. Using ultrasound guidance and a micropuncture needle, a basilic vein above the elbow was successfully percutaneously cannulized. A floppy tip 0.018 guidewire inserted. Tourniquet released. Needle was exchanged for a 5 Jordanian dilator peel-away sheath catheter. Ultimately a 5 Jordanian double-lumen PICC line was inserted over a longer 0.018 guidewire with the tip positioned in the distal SVC using fluoroscopic guidance. Guidewire removed. Both ports flushed with heparinized saline. Catheter was secured. Postoperative instructions and orders given. Patient discharged in good condition. Impression: Technically successful right upper extremity PICC line placement using ultrasound and fluoroscopic guidance. No immediate complications. Approximately 1 cc blood loss. Approximately 0.2 minute of fluoroscopy used. Catheter length is 39 cm.
[2018-11-22 14:56] LABS: ANION GAP 14.5 MEQ/L (5-15); BLOOD UREA NITROGEN 4 mg/dL (7-17); CHLORIDE 106 mmol/L (98-107); Calcium 7.9 mg/dL (8.4-10.2); Carbon Dioxide 25 mmol/L (22-30); Glucose 142 mg/dL (74-106); SODIUM 142 mmol/L (137-145)
[2018-11-22] MEDS: Apresoline 25 MG TABLET PO PRN (15:46)
[2018-11-22] MEDS: VANCOMYCIN 25MG/ML ORAL SOLUTION COMPOUND KIT PO SCH ×2 (17:12→21:14)
[2018-11-22] MEDS ORDERED: APRESOLINE 20 MG/ML INJ IV PRN (17:15)
[2018-11-22] MEDS: Zofran 4 MG/2 ML VIAL IV PRN (18:59)
[2018-11-22] MEDS: Zocor 10MG PO SCH (21:05)
[2018-11-22] MEDS: Klor Con 10 MEQ PO SCH (21:06)
[2018-11-22] MEDS ORDERED: ATARAX 25 MG ONE (22:27)
[2018-11-22] MEDS ORDERED: ATARAX 25 MG PO PRN (22:45)
[2018-11-23] MEDS: Zosyn 3.375GM/100 Ml D5W 3.375 GM/100 ML IVPB IV SCH ×4 (00:24→17:07)
[2018-11-23 04:49] LABS: Hematocrit 34.5 % (35-47); Hemoglobin 11.5 gm/dl (12.0-16.0); Mean Cell Volume 89.4 fl (78-100); Mean Corpuscular Hgb Concent. 33.3 g/dl (32-36); Mean Platelet Volume 9.7 fl (6-9.5); Platelet Count 309 K/mm3 (150-450); Red Blood Count 3.86 M/mm3 (4.1-5.4); Red Cell Distribution Width 14.4 % (11.5-14.0); White Blood Count 12.1 K/mm3 (4.0-10.5)
[2018-11-23 04:59] LABS: Mean Corpuscular Hemoglobin 29.7 pg (26-32)
[2018-11-23 05:10] LABS: ALKALINE PHOSPHATASE 42 U/L (38-126); ANION GAP 13.2 MEQ/L (5-15); BLOOD UREA NITROGEN 3 mg/dL (7-17); CHLORIDE 103 mmol/L (98-107); Calcium 8.4 mg/dL (8.4-10.2); Carbon Dioxide 30 mmol/L (22-30); Glucose 102 mg/dL (74-106); MAGNESIUM 1.6 mg/dL (1.6-2.3); SGOT/AST 29 U/L (14-36); SGPT/ALT 10 U/L (0-35); SODIUM 143 mmol/L (137-145)
[2018-11-23 05:27] LABS: Potassium 2.9 mmol/L (3.5-5.1)
[2018-11-23 05:58] LABS: Eosinophil 1 % (0.00-3.0); Lymphocytes 18 % (24-44); Monocyte 14 % (0.0-12.0); Neutrophils 67 % (36.0-66.0); Platelet Estimate NORMAL (NORMAL); Total Cells Counted 100
[2018-11-23] MEDS: FLAGYL 500 MG IVPB 500 MG/100 ML BAG IV SCH ×3 (06:20→22:19)
[2018-11-23] MEDS: MORPHINE SULFATE 4 MG INJ IV PRN (09:18)
[2018-11-23] MEDS ORDERED: Klor Con 10 MEQ PO SCH (10:00)
[2018-11-23] MEDS: Zyvox 600 MG IV PREMIX*** 300 ML IV SCH ×2 (10:43→22:42)
[2018-11-23] MEDS: ECOTRIN 81 MG PO SCH (10:43)
[2018-11-23] MEDS: ENOXAPARIN SODIUM SQ SCH (10:43)
[2018-11-23] MEDS: hydroDIURIL 25 MG PO SCH (10:43)
[2018-11-23] MEDS: Zestril 20 MG PO SCH (10:43)
[2018-11-23] MEDS: Klor Con 10 MEQ PO SCH ×2 (10:43→22:19)
[2018-11-23] MEDS: VANCOMYCIN 25MG/ML ORAL SOLUTION COMPOUND KIT PO SCH ×4 (10:45→22:20)
[2018-11-23] MEDS: Sodium Chloride 0.9% 10 ML FLUSH Syringe IV PRN (18:51)
[2018-11-23] MEDS: Zocor 10MG PO SCH (22:20)
[2018-11-24] MEDS: Zosyn 3.375GM/100 Ml D5W 3.375 GM/100 ML IVPB IV SCH ×4 (00:58→11:47)
[2018-11-24] MEDS: Sodium Chloride 0.9% W/ 20 mEq KCl/LITER 1,000 ML IV SCH (05:12)
[2018-11-24] MEDS: FLAGYL 500 MG IVPB 500 MG/100 ML BAG IV SCH ×2 (05:14→13:52)
[2018-11-24] MEDS: Sodium Chloride 0.9% 10 ML FLUSH Syringe IV PRN (05:15)
[2018-11-24 05:48] LABS: Hematocrit 34.2 % (35-47); Hemoglobin 11.2 gm/dl (12.0-16.0); Mean Corpuscular Hgb Concent. 32.7 g/dl (32-36); Mean Platelet Volume 9.7 fl (6-9.5); Platelet Count 278 K/mm3 (150-450); Red Blood Count 3.76 M/mm3 (4.1-5.4); Red Cell Distribution Width 14.8 % (11.5-14.0); White Blood Count 12.4 K/mm3 (4.0-10.5)
[2018-11-24 05:54] LABS: ANION GAP 10.7 MEQ/L (5-15); BLOOD UREA NITROGEN 3 mg/dL (7-17); CHLORIDE 102 mmol/L (98-107); Calcium 8.1 mg/dL (8.4-10.2); Carbon Dioxide 30 mmol/L (22-30); Creatinine 1 0.87 mg/dL (0.52-1.04); Glucose 114 mg/dL (74-106); Potassium 3.4 mmol/L (3.5-5.1); SODIUM 139 mmol/L (137-145)
[2018-11-24 05:57] LABS: Mean Corpuscular Hemoglobin 29.7 pg (26-32)
[2018-11-24 07:17] VITALS: BP 119/66; PULSE 86; O2SAT 94
--- NOTE | 2018-11-24 08:42 | XRAY ---
Indication: Abdomen pain. Diverticulitis. Multiple contiguous axial images obtained through the abdomen and pelvis without contrast as ordered. Comparison: November 17, 2018. Lung bases again demonstrates bibasilar atelectasis/scarring with new tiny left effusion. Heart is not enlarged. Noncontrasted stomach unremarkable. Noncontrasted bowel loops are now mildly fluid distended throughout with synchronous fluid leveling favoring ileus. There remains scattered colonic diverticulosis. Previous descending and sigmoid diverticulitis mildly improved and still persists. No free fluid/air. Again previous appendectomy, cholecystectomy, and hysterectomy. Stable 7 cm walled off fluid collection interposed between the rectum and vaginal cuff. Also stable right renal exophytic cyst and left renal atrophy. Remaining liver, pancreas, spleen, adrenal glands, kidneys, ureters, and bladder appear unremarkable for noncontrast exam. Stable mild aortoiliac calcifications without AAA. Impression: 1. Mild improving descending and sigmoid diverticulitis. No complications. 2. New fluid distended small/large bowel loops with fluid leveling favoring ileus. 3. New tiny left effusion. 4. Stable indeterminant pelvis walled off fluid collection, right renal cyst, and left renal atrophy. CT DI 28.13
[2018-11-24] MEDS: Zyvox 600 MG IV PREMIX*** 300 ML IV SCH (09:53)
[2018-11-24] MEDS: VANCOMYCIN 25MG/ML ORAL SOLUTION COMPOUND KIT PO SCH ×2 (09:53→13:51)
[2018-11-24] MEDS: ENOXAPARIN SODIUM SQ SCH (09:54)
[2018-11-24] MEDS: hydroDIURIL 25 MG PO SCH (09:54)
[2018-11-24] MEDS: Zestril 20 MG PO SCH (09:54)
[2018-11-24] MEDS ORDERED: Acidophilus TABLET PO SCH (10:00)
[2018-11-24] MEDS: Klor Con 10 MEQ PO SCH (11:47)
[2018-11-24] MEDS: ECOTRIN 81 MG PO SCH (11:47)
== END 2018-11-24 14:00 | disposition swing bed (61) | DRG 372 ==
LOC: MED SURG 14:55
PROVIDERS: ADMIT Family Medicine; ATTEND Family Medicine
DX: A04.72 Enterocolitis due to Clostridium difficile, not specified as recurrent (principal); R18.8 Other ascites; N39.0 Urinary tract infection, site not specified; E87.6 Hypokalemia; K57.30 Diverticulosis of large intestine without perforation or abscess without bleeding; I10 Essential (primary) hypertension; R10.9 Unspecified abdominal pain; Z79.899 Other long term (current) drug therapy
CPT/HCPCS: 36415; 36569; 74176; 76937; 77001; 80048; 80053; 81001; 83735; 84443; 85025; 85027; 85610; 85730; 87077; 87086; 87186; 87493; 93005; C1769; J0360; J1642; J1650; J2020; J2270; J2405; J2543; J2550; J3475; A9270-GY

== ENCOUNTER 2018-11-24 10:15 | Inpatient (IN) | payer MEDICARE, OTHER ==
[2018-11-24] MEDS ORDERED: APRESOLINE 20 MG/ML INJ IV PRN (14:22)
[2018-11-24] MEDS ORDERED: TYLENOL 325 MG PO PRN (14:22)
[2018-11-24] MEDS ORDERED: Aplisol ID ONE (14:22)
[2018-11-24] MEDS ORDERED: MORPHINE SULFATE 4 MG INJ IV PRN (14:22)
[2018-11-24] MEDS ORDERED: Mylicon 80MG PO PRN (14:22)
[2018-11-24] MEDS ORDERED: ANASPAZ 0.125 MG PO PRN (14:22)
[2018-11-24] MEDS ORDERED: Sodium Chloride 0.9% 10 ML FLUSH Syringe IV PRN (14:22)
[2018-11-24] MEDS ORDERED: XANAX 1 MG PO PRN (14:22)
[2018-11-24] MEDS: VANCOMYCIN HCL CAPSULE PO SCH ×2 (17:00→20:50)
[2018-11-24] MEDS ORDERED: VANCOMYCIN 25MG/ML ORAL SOLUTION COMPOUND KIT PO SCH (17:00)
[2018-11-24] MEDS: Zosyn 3.375GM/100 Ml D5W 3.375 GM/100 ML IVPB IV SCH ×2 (17:00→23:55)
[2018-11-24] MEDS: Zofran 4 MG/2 ML VIAL IV PRN (20:43)
[2018-11-24] MEDS: FLAGYL 500 MG IVPB 500 MG/100 ML BAG IV SCH (20:49)
[2018-11-24] MEDS: Zocor 10MG PO SCH (20:50)
[2018-11-24] MEDS: Klor Con 10 MEQ PO SCH (20:50)
[2018-11-24] MEDS: Zyvox 600 MG IV PREMIX*** 300 ML IV SCH (21:47)
[2018-11-25] MEDS: Sodium Chloride 0.9% W/ 20 mEq KCl/LITER 1,000 ML IV SCH ×4 (02:24→18:12)
[2018-11-25] MEDS: FLAGYL 500 MG IVPB 500 MG/100 ML BAG IV SCH ×3 (05:30→22:27)
[2018-11-25 05:50] LABS: Hematocrit 34.4 % (35-47); Hemoglobin 11.2 gm/dl (12.0-16.0); Mean Cell Volume 90.1 fl (78-100); Mean Corpuscular Hemoglobin 29.3 pg (26-32); Mean Corpuscular Hgb Concent. 32.6 g/dl (32-36); Platelet Count 261 K/mm3 (150-450); Red Blood Count 3.82 M/mm3 (4.1-5.4); Red Cell Distribution Width 14.9 % (11.5-14.0); White Blood Count 12.9 K/mm3 (4.0-10.5)
[2018-11-25] MEDS: Zosyn 3.375GM/100 Ml D5W 3.375 GM/100 ML IVPB IV SCH ×4 (06:15→23:46)
[2018-11-25] MEDS: Klor Con 10 MEQ PO SCH ×3 (08:53→22:30)
[2018-11-25] MEDS: ENOXAPARIN SODIUM SQ SCH (08:53)
[2018-11-25] MEDS: Acidophilus TABLET PO SCH (08:53)
[2018-11-25] MEDS: ECOTRIN 81 MG PO SCH (08:54)
[2018-11-25] MEDS: hydroDIURIL 25 MG PO SCH (08:54)
[2018-11-25] MEDS: Zestril 20 MG PO SCH (08:54)
[2018-11-25] MEDS: VANCOMYCIN HCL CAPSULE PO SCH ×5 (08:54→22:29)
[2018-11-25] MEDS: Zyvox 600 MG IV PREMIX*** 300 ML IV SCH ×2 (08:54→16:00)
[2018-11-25 09:58] LABS: ALBUMIN 2.8 g/dL (3.5-5.0); ALKALINE PHOSPHATASE 38 U/L (38-126); ANION GAP 12.6 MEQ/L (5-15); BLOOD UREA NITROGEN 5 mg/dL (7-17); CHLORIDE 102 mmol/L (98-107); Calcium 8.3 mg/dL (8.4-10.2); Carbon Dioxide 28 mmol/L (22-30); Creatinine 1 0.86 mg/dL (0.52-1.04); Glucose 121 mg/dL (74-106); SGOT/AST 19 U/L (14-36); SGPT/ALT 10 U/L (0-35); SODIUM 140 mmol/L (137-145); Total Protein 5.7 g/dL (6.3-8.2)
[2018-11-25 11:11] LABS: Potassium 2.8 mmol/L (3.5-5.1)
[2018-11-25] MEDS ORDERED: Klor Con 10 MEQ PO ONE (14:06)
[2018-11-25] MEDS: Zofran 4 MG/2 ML VIAL IV PRN (16:22)
[2018-11-25] MEDS: Phenergan 25 MG INJ IV PRN (17:15)
[2018-11-25] MEDS ORDERED: Zyvox 600 MG IV PREMIX*** 300 ML IV SCH (17:55)
[2018-11-25] MEDS: ATARAX 25 MG PO PRN (18:12)
[2018-11-25] MEDS: Zocor 10MG PO SCH ×2 (22:27→22:30)
[2018-11-26] MEDS: Phenergan 25 MG INJ IV PRN (01:10)
[2018-11-26] MEDS: ATARAX 25 MG PO PRN ×2 (01:58→08:03)
[2018-11-26] MEDS: Zyvox 600 MG IV PREMIX*** 300 ML IV SCH ×2 (04:14→15:46)
[2018-11-26 05:01] LABS: Hematocrit 32.8 % (35-47); Hemoglobin 10.8 gm/dl (12.0-16.0); Mean Cell Volume 90.4 fl (78-100); Mean Corpuscular Hgb Concent. 32.9 g/dl (32-36); Mean Platelet Volume 10.1 fl (6-9.5); Platelet Count 240 K/mm3 (150-450); Red Blood Count 3.63 M/mm3 (4.1-5.4); Red Cell Distribution Width 14.9 % (11.5-14.0); White Blood Count 11.8 K/mm3 (4.0-10.5)
[2018-11-26 05:08] LABS: Mean Corpuscular Hemoglobin 29.7 pg (26-32)
[2018-11-26 05:14] LABS: ANION GAP 13.2 MEQ/L (5-15); BLOOD UREA NITROGEN 5 mg/dL (7-17); CHLORIDE 104 mmol/L (98-107); Calcium 8.3 mg/dL (8.4-10.2); Carbon Dioxide 25 mmol/L (22-30); Creatinine 1 0.85 mg/dL (0.52-1.04); Glucose 130 mg/dL (74-106); Potassium 3.1 mmol/L (3.5-5.1); SODIUM 139 mmol/L (137-145)
[2018-11-26] MEDS: Zosyn 3.375GM/100 Ml D5W 3.375 GM/100 ML IVPB IV SCH ×4 (06:34→23:33)
[2018-11-26] MEDS: FLAGYL 500 MG IVPB 500 MG/100 ML BAG IV SCH ×3 (07:00→21:20)
[2018-11-26] MEDS: Zofran 4 MG/2 ML VIAL IV PRN (08:03)
[2018-11-26] MEDS: Sodium Chloride 0.9% W/ 20 mEq KCl/LITER 1,000 ML IV SCH (10:13)
[2018-11-26] MEDS: ENOXAPARIN SODIUM SQ SCH (10:34)
[2018-11-26] MEDS: Acidophilus TABLET PO SCH (10:35)
[2018-11-26] MEDS: VANCOMYCIN HCL CAPSULE PO SCH ×4 (10:35→21:19)
[2018-11-26] MEDS: Zestril 20 MG PO SCH (10:36)
[2018-11-26] MEDS: Klor Con 10 MEQ PO SCH ×3 (10:38→21:20)
[2018-11-26] MEDS: hydroDIURIL 25 MG PO SCH (10:43)
[2018-11-26] MEDS: ECOTRIN 81 MG PO SCH (10:44)
[2018-11-26] MEDS ORDERED: Lasix 20 MG/2 ML IV ONE (11:30)
[2018-11-26] MEDS: Zocor 10MG PO SCH (21:19)
[2018-11-27] MEDS: Sodium Chloride 0.9% W/ 20 mEq KCl/LITER 1,000 ML IV SCH ×2 (02:53→18:47)
[2018-11-27] MEDS: Zyvox 600 MG IV PREMIX*** 300 ML IV SCH ×2 (04:25→16:38)
[2018-11-27] MEDS: Zofran 4 MG/2 ML VIAL IV PRN ×2 (04:55→21:36)
[2018-11-27] MEDS: Zosyn 3.375GM/100 Ml D5W 3.375 GM/100 ML IVPB IV SCH ×3 (05:51→18:03)
[2018-11-27 05:52] LABS: Hematocrit 35.1 % (35-47); Hemoglobin 11.5 gm/dl (12.0-16.0); Mean Cell Volume 90.5 fl (78-100); Mean Corpuscular Hemoglobin 29.6 pg (26-32); Mean Corpuscular Hgb Concent. 32.8 g/dl (32-36); Mean Platelet Volume 10.2 fl (6-9.5); Platelet Count 252 K/mm3 (150-450); Red Blood Count 3.88 M/mm3 (4.1-5.4); Red Cell Distribution Width 15.3 % (11.5-14.0); White Blood Count 11.7 K/mm3 (4.0-10.5)
[2018-11-27] MEDS: FLAGYL 500 MG IVPB 500 MG/100 ML BAG IV SCH ×3 (05:52→21:36)
[2018-11-27 06:07] LABS: ANION GAP 12.3 MEQ/L (5-15); Calcium 8.5 mg/dL (8.4-10.2); Creatinine 1 0.98 mg/dL (0.52-1.04); MAGNESIUM 1.4 mg/dL (1.6-2.3); Potassium 3.5 mmol/L (3.5-5.1)
[2018-11-27] MEDS: Klor Con 10 MEQ PO SCH ×3 (08:28→21:36)
[2018-11-27] MEDS: Acidophilus TABLET PO SCH (08:28)
[2018-11-27] MEDS: Zestril 20 MG PO SCH (08:28)
[2018-11-27] MEDS: Phenergan 25 MG INJ IV PRN ×3 (08:28→23:03)
[2018-11-27] MEDS: ENOXAPARIN SODIUM SQ SCH (08:29)
[2018-11-27] MEDS: ECOTRIN 81 MG PO SCH (08:30)
[2018-11-27] MEDS: hydroDIURIL 25 MG PO SCH (08:30)
[2018-11-27] MEDS: VANCOMYCIN HCL CAPSULE PO SCH ×4 (09:55→21:36)
[2018-11-27] MEDS ORDERED: Ativan 0.5 MG PO SCH (12:00)
[2018-11-27] MEDS: Zocor 10MG PO SCH (21:37)
[2018-11-28] MEDS: Zosyn 3.375GM/100 Ml D5W 3.375 GM/100 ML IVPB IV SCH ×3 (00:11→12:09)
[2018-11-28] MEDS ORDERED: Pepcid 20 MG VIAL IV ONE (01:35)
[2018-11-28] MEDS ORDERED: MAALOX ES 30 ML UNIT DOSE PO PRN (01:36)
[2018-11-28] MEDS: Zyvox 600 MG IV PREMIX*** 300 ML IV SCH ×2 (03:35→16:09)
[2018-11-28] MEDS: FLAGYL 500 MG IVPB 500 MG/100 ML BAG IV SCH ×2 (06:00→13:31)
[2018-11-28 07:25] VITALS: BP 150/56; PULSE 94; O2SAT 94
[2018-11-28] MEDS: Klor Con 10 MEQ PO SCH (08:07)
[2018-11-28] MEDS: ENOXAPARIN SODIUM SQ SCH (08:07)
[2018-11-28] MEDS: Acidophilus TABLET PO SCH (08:07)
[2018-11-28] MEDS: hydroDIURIL 25 MG PO SCH (08:08)
[2018-11-28] MEDS: VANCOMYCIN HCL CAPSULE PO SCH ×2 (08:08→12:10)
[2018-11-28] MEDS: ECOTRIN 81 MG PO SCH (08:08)
[2018-11-28] MEDS: Zestril 20 MG PO SCH (08:08)
[2018-11-28] MEDS: Phenergan 25 MG INJ IV PRN (08:08)
[2018-11-28] MEDS: ATARAX 25 MG PO PRN (10:38)
[2018-11-28 12:43] LABS: Absolute Neutrophil Ct (ANC) 11.86 (1.4-6.9); BASOPHIL % 0.2 % (0.0-0.4); Basophil (Absolute #) 0.03 (0-0.4); Eosinophil % 1.4 % (0.00-5.0); Eosinophil (Absolute #) 0.21 (0-0.5); Hematocrit 38.5 % (35-47); Hemoglobin 12.3 gm/dl (12.0-16.0); Lymphocyte (Absolute #) 1.77 (1.0-4.6); Lymphocytes % 11.8 % (24.0-44.0); Mean Cell Volume 92.1 fl (78-100); Mean Corpuscular Hemoglobin 29.4 pg (26-32); Mean Corpuscular Hgb Concent. 31.9 g/dl (32-36); Monocytes % 7.3 % (0.0-12.0); Neutrophil % 79.3 % (36.0-66.0); Platelet Count 242 K/mm3 (150-450); Red Blood Count 4.18 M/mm3 (4.1-5.4); Red Cell Distribution Width 15.6 % (11.5-14.0)
[2018-11-28] MEDS: Sodium Chloride 0.9% W/ 20 mEq KCl/LITER 1,000 ML IV SCH (12:48)
[2018-11-28] MEDS ORDERED: Ativan 2 MG/1 ML VIAL IV ONE (12:50)
--- NOTE | 2018-11-28 12:50 | PCM.DS ---
Discharge Summary Date of Admission: 11/24/18 14:00 Admitting Physician: FRANKI TOBAR Primary Care Provider: FRANKI TOBAR Allergies Allergies No Known Drug Allergies Allergy (Verified 11/24/18 14:44) Hospital Summary - Hospital Course Hospital Course: Pt is a 78 yo female pt of Dr. Tobar, formerly of Dr. Bravo, with HTN, OA, diverticulitis, known pelvic fluid collection, and cataracts who was admitted initially at [facility] this admission for C. diff colitis. She has had a long course also involving her diverticulitis and now VRE UTI; since yesterday she has had increased nausea, vomiting, and abd distension and is being transferred to under Dr. Michael, thank you, where GI and ID are available if needed. I have discussed this at length with pt and with family and they are agreeable. The current admission, from 11/24/18 to 11/28/18 is as a "swing bed" stay - just previous to this (and concurrent with it) was her acute care stay from 11/16/18 to 11/24/18. Pt has remained on the [facility] med surg floor during her entire stay ( from 11/16/18 to 11/28/18). On 08/06/18 she was admitted to [facility], was a Dr. Bravo pt and seen by me, initially thought to have UTI and was put on rocephin. Her Ucx grew mixed екатерина and she was found to have had 2 weeks of LLQ pain so was started on flagyl and levaquin for diverticulitis. She improved quickly and was sent home on po augmentin. At the end of October 2018 she had a colonoscopy with Dr. Ko; he was unable to pass the scope due to her severe diverticulitis. She was supposed to have surgery, family endorses colectomy with ostomy placement, but surgery has been waiting due to current infection. On 11/16/[address] Tobar c/o diarrhea x 2d. Found to be c. diff positive. Admitted on IV flagyl and po vancomycin. On 11/18/18 Dr. iVctoria found her diverticulitis to be worsened and started her on zosyn. At this point it was noted the C. diff was positive with the organism but negative for NAP gene. Surgery consulted for known pelvic abscess which was stable. On 11/19/18 pt felt better, stools minimal and improved. Did have N/V x 2. On 11/20/18 Dr. Sarkar noted the pt had 2 loose stools. WBC improving. On 11/21/18 Dr. Sarkar noted her abd pain was better and diarrhea improved. Her BP remained elevated and her lisinopril, which had been increased from 10mg to 20mg daily during this admission, was increased to 40mg/d. On 03/09/18 Dr. Gray saw the pt and found her abd pain better, however with some nausea the night before. Urine cx results + for VRE and pt started on Linezolid. Pt has had 4 CTs of abdomen and pelvis since July 2018 - the reports of all four are included. The most recent, on 11/23/18, showed stable 7 cm walled off fluid collection between the rectum and vaginal cuff; also showed mild improvement in diverticulitis. Nothing acute. Antibiotics: Flagyl 500mg IV: Day #13, started 11/16/18, pt has had 36 doses. Vancomycin 500mg po: Day #13, started on 11/16/18, pt has had 41 doses. Zosyn IV: Day #11, started on 11/18/18, pt has had 41 doses. Zyvox 600mg IV q12h: Day #7, started on 11/22/18, pt has had 10 doses. - Vitals & Intake/Output Vital Signs: Vital Signs Temperature 97.6 F 11/28/18 07:24 Pulse Rate 94 H 11/28/18 07:24 Respiratory Rate 20 11/28/18 07:24 Blood Pressure 150/56 11/28/18 07:24 O2 Sat by Pulse Oximetry 94 L 11/28/18 07:24 Intake & Output: Intake & Output 11/26/18 11/27/18 11/28/18 11/29/18 11:59 11:59 11:59 11:59 Intake Total 3947 4245 3611 Balance 2628 4482 3617 Weight 118.2 kg 117 kg 118.2 kg - Lab Result Diagrams: 11/27/18 04:00 11/27/18 04:00 - Radiology Exams Ordered Rad Exams-Entire Visit: Radiology Procedures Category Date Time Status KUB Stat Exams 11/28/18 Ordered KUB Urgent Exams 11/28/18 10:30 Stop Req - Procedures and Test Procedures and Tests throughout Hospitalization: Therapy Orders & Screens 11/24/18 14:22 PT Eval & Treat ( Order) ROUTINE Reason for Eval:: DECONDITIONING R/T CDIFF COLITIS, DIVERTICULITIS Diagnosis: DECONDITIONING R/T CDIFF COLITIS, DIVERTICULITIS 11/28/18 12:20 EKG STAT Comment: Diagnosis: DECONDITIONING R/T CDIFF COLITIS, DIVERTICULITIS Discharge Exam General Appearance: moderate distress, obese Neurologic Exam: alert, cooperative Eye Exam: eyes nml inspection Ears, Nose, Throat Exam: moist mucous membranes Neck Exam: normal inspection Respiratory Exam: normal breath sounds, lungs clear, No crackles/rales, No rhonchi, No wheezing Cardiovascular Exam: regular rate/rhythm, normal heart sounds, No murmur Gastrointestinal/Abdomen Exam: tenderness (RUQ, epigastrum, LUQ), distention, No normal bowel sounds (high pitched), No mass, No guarding, No rebound Extremity Exam: other (feet with some overall purple coloration, they are warm aside from cool distal toes bilat, but cap refill < 2 sec), No pedal edema, No swelling Skin Exam: normal color, warm, dry, No rash Final Diagnosis/Problem List - Final Discharge Diagnosis/Problem (1) Nausea & vomiting Current Visit: Yes Status: Acute Assessment & Plan: On exam I am suspicious of SBO. KUB is pending. Discussed NG tube placement with pt but she is adamantly refusing. Labs pending including CMP, CBC w diff, amylase, lipase, troponin. Code(s): R11.2 - NAUSEA WITH VOMITING, UNSPECIFIED (2) Vancomycin resistant Enterococcus Current Visit: Yes Status: Acute Assessment & Plan: 10,000-20,000 CFU on urine culture. On linezolid Day #7. Code(s): A49.1 - STREPTOCOCCAL INFECTION, UNSPECIFIED SITE; Z16.21 - RESISTANCE TO VANCOMYCIN (3) C. difficile colitis Current Visit: No Status: Acute Assessment & Plan: On flagyl IV and vancomycin po, day #13 for each. Code(s): A04.72 - ENTEROCOLITIS D/T CLOSTRIDIUM DIFFICILE, NOT SPCF RECUR (4) Diverticulitis Current Visit: No Status: Acute Assessment & Plan: ON IV zosyn, day #11. Code(s): K57.92 - DVTRCLI OF INTEST, PART UNSP, W/O PERF OR ABSCESS W/O BLEED (5) Pelvic fluid collection Current Visit: No Status: Chronic Assessment & Plan: Surgery was awaiting resolution of C. diff infection before pursuing surgery. Wonder if this or the diverticulitis is related to her frequent UTIs (?fistula). Code(s): R18.8 - OTHER ASCITES - Discharge Disposition: DC TO [facility] Condition: Serious Prescriptions: No Action Aspirin EC 81 mg [Ecotrin 81 mg] 81 mg PO DAILY Lisinopril 10 mg [Zestril 10 MG] 10 mg PO DAILY Dicyclomine HCl 20 mg [Bentyl 20 mg] 10 mg PO DAILY Atorvastatin Calcium 10 mg PO HS Alprazolam 1 mg [Xanax 1 mg] 1 mg PO HSPRN PRN PRN Reason: sleep Follow up with: FRANKI TOBAR [Primary Care Provider] - 1 Week
[2018-11-28 13:18] LABS: ALBUMIN 3.7 g/dL (3.5-5.0); ANION GAP 15.8 MEQ/L (5-15); BILIRUBIN,TOTAL 0.4 mg/dL (0.2-1.3); Calcium 9.1 mg/dL (8.4-10.2); Creatinine 1 1.12 mg/dL (0.52-1.04); Potassium 3.7 mmol/L (3.5-5.1); Total Protein 7.1 g/dL (6.3-8.2)
--- NOTE | 2018-11-28 21:00 | XRAY ---
Indication: Nausea, vomiting, and bloating. History C. difficile. Comparison: CT abdomen/pelvis November 23, 2018. KUB again demonstrates mild air distended small bowel loops, moderately air distended large bowel loops, and paucity of bowel gas in the descending colon grossly unchanged. No focal bowel wall thickening or free air. Solid organs obscured by overlying bowel gas. Osseous structures intact again with osteopenia and degenerative changes. Impression: Stable air distended small and large bowel loops favoring CT proven ileus. Comment: Preliminary interpretation was made by [facility]. No discrepancy.
== END 2018-11-28 16:10 | disposition short-term general hospital (02) | DRG 372 ==
LOC: MED SURG 14:00
PROVIDERS: ADMIT Family Medicine; ATTEND Family Medicine
DX: A04.72 Enterocolitis due to Clostridium difficile, not specified as recurrent (principal); K57.92 Diverticulitis of intestine, part unspecified, without perforation or abscess without bleeding; R18.8 Other ascites; R11.2 Nausea with vomiting, unspecified; I10 Essential (primary) hypertension; M19.90 Unspecified osteoarthritis, unspecified site; A49.1 Streptococcal infection, unspecified site; Z16.21 Resistance to vancomycin; Z79.899 Other long term (current) drug therapy
CPT/HCPCS: 36415; 74018; 80048; 80053; 82150; 83690; 83735; 84484; 85025; 85027; 93005; J1642; J1650; J1940; J2020; J2060; J2270; J2405; J2543; J2550; 97110-GP; A9270-GY

== ENCOUNTER 2019-06-07 22:33 | Emergency (ER) | payer MEDICARE, OTHER ==
--- NOTE | 2019-06-07 22:41 | ERPHSYRPT ---
- History of Present Illness Time Seen by Provider: 06/07/19 22:41 Source: patient Exam Limitations: no limitations Physician History: This is a 78-year-old female who presents with abrupt onset of small amount of bleeding from her right nostril. Patient used ice pack to her nose. By the time she arrived to the emergency room the bleeding had stopped. Patient denies trauma to her nose. Patient denies picking her nose. Patient denies history of bleeding or clotting disorders. Patient states she is only on a baby aspirin a day. Timing/Duration: abrupt onset, this evening Severity: mild ENT Location: nose (Right nostril) Prearrival Treatment: no prearrival treatment Modifying Factors: Improves With: nothing Associated Symptoms: denies symptoms Allergies/Adverse Reactions: vancomycin Adverse Reaction (Severe, Verified 06/07/19 23:02) pt states causes kidney damage Home Medications: Aspirin EC 81 mg [Ecotrin 81 mg] 81 mg PO DAILY 11/04/18 [History] Atorvastatin Calcium 10 mg PO HS 11/04/18 [History] Dicyclomine HCl 20 mg [Bentyl 20 mg] 10 mg PO DAILY 11/04/18 [History] Lisinopril 10 mg [Zestril 10 MG] 10 mg PO DAILY 11/04/18 [History] Alprazolam 1 mg [Xanax 1 mg] 1 mg PO HSPRN PRN 11/10/18 [History] Hx Tetanus, Diphtheria Vaccination/Date Given: Yes Hx Influenza Vaccination/Date Given: Yes Hx Pneumococcal Vaccination/Date Given: Yes Travel Risk - International Travel Have you traveled outside of the country in past 3 weeks: No Have you or anyone close to you been diagnosed with or: No Do your reside in a community with a known COVID-19 case?: Yes If Yes where:: [facility] - Coronavirus Screening Has patient experienced Coronavirus symptoms: No - Review of Systems Constitutional: No Symptoms Eyes: No Symptoms Ears, Nose, & Throat: Epistaxis (Right nostril) Respiratory: No Symptoms Cardiac: No Symptoms Abdominal/Gastrointestinal: No Symptoms Genitourinary Symptoms: No Symptoms Musculoskeletal: No Symptoms Skin: No Symptoms Neurological: No Symptoms Psychological: No Symptoms Endocrine: No Symptoms Hematologic/Lymphatic: No Symptoms Immunological/Allergic: No Symptoms All Other Systems: Reviewed and Negative - Past Medical History Pertinent Past Medical History: Yes Neurological History: No Pertinent History ENT History: Cataracts Cardiac History: Hypertension Respiratory History: No Pertinent History Endocrine Medical History: No Pertinent History Musculoskeletal History: Osteoarthritis GI Medical History: Diverticulitis, Diverticulosis, GERD, Other History: No Pertinent History Psycho-Social History: No Pertinent History Female Reproductive Disorders: No Pertinent History Other Medical History: CYST ON KIDNEY/STOMACH AREA - Past Surgical History Past Surgical History: Yes Neuro Surgical History: No Pertinent History Cardiac: No Pertinent History Respiratory: No Pertinent History Gastrointestinal: Appendectomy, Cholecystectomy Genitourinary: No Pertinent History Musculoskeletal: Joint Replacement, Orthopedic Surgery Female Surgical History: Hysterectomy Other Surgical History: RIGHT KNEE REPLACEMENT IN 2002, SURGERY LEFT WRIST 2002 , LEFT KNEE REPLACEMENT 2014. 2nd rt knee last year, Skin cancer removed from face 2005 - Social History Smoking Status: Never smoker Exposure to second hand smoke: No Alcohol Use: None Drug Use: none Patient Lives Alone: No Significant Family History: no pertinent family hx - Nursing Vital Signs Nursing Vital Signs: Initial Vital Signs Temperature 97.4 F 06/07/19 22:43 Respiratory Rate 18 06/07/19 22:43 Blood Pressure 157/102 06/07/19 22:43 Pain Scale Pain Intensity 0 - Physical Exam General Appearance: no apparent distress, alert, anxiety Eye Exam: bilateral eye: normal inspection, PERRL, EOMI Ear Exam: bilateral ear: auricle normal Nasal Exam: normal inspection, dried blood (Nostril), No active bleeding, No foreign body, No sinus tenderness Throat Exam: normal, pharynx normal Neck Exam: normal inspection, non-tender, supple, full range of motion, trachea midline Cardiovascular/Respiratory Exam: chest non-tender Abdominal Exam: non-tender Neurologic Exam: alert, 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, cooperative, pan washer II-XII nml as tested Skin Exam: normal color, warm, dry O2 Delivery: Room Air - Course Nursing assessment & vital signs reviewed: Yes - Progress Progress: improved Counseled pt/family regarding: diagnosis, need for follow-up - Departure Departure Disposition: Home Clinical Impression: Epistaxis Condition: Stable Critical Care Time: No Referrals: FRANKI TOBAR [Primary Care Provider] - Additional Instructions: Do not pick your nose. Hold your aspirin for 3 days. If you notice bleeding from the right nostril then use the Joao-Synephrine that we provided you. Follow the instructions on the packet. Then placed the nasal clip for 30 minutes. If there is persistent bleeding after this, then return to the emergency room for further management.
[2019-06-07] MEDS ORDERED: NEOSYNEPHRINE 0.5% NASAL SPRAY/DROPS NS ONE (23:10)
[2019-06-07] MEDS ORDERED: NEOSYNEPHRINE 0.5% NASAL SPRAY/DROPS ONE (23:19)
[2019-06-07 23:33] VITALS: BP 145/73; PULSE 79; O2SAT 94
== END 2019-06-07 23:28 | disposition home or self-care (01) ==
LOC: ED 22:33
DX: R04.0 Epistaxis (principal); I10 Essential (primary) hypertension; Z79.899 Other long term (current) drug therapy
CPT/HCPCS: 99283; A9270-GY

== ENCOUNTER 2019-07-16 18:54 | Emergency (ER) | payer MEDICARE, OTHER ==
[2019-07-16 19:21] VITALS: BP 143/64; PULSE 79; O2SAT 98
--- NOTE | 2019-07-16 19:24 | ERPHSYRPT ---
- History of Present Illness Time Seen by Provider: 07/16/19 19:15 Source: patient Exam Limitations: no limitations Patient Subjective Stated Complaint: pt states, "My b/p at home was 180/100". Rechecked 187/103. Triage Nursing Assessment: pt c/o b/p being high today, 180/100 and 187/103. Pt denies any headache, pain, nausea, cough, edema, weakness, etc. B/p upon arrival is 165/87. Pt takes b/p meds and water pill and thinks she got them mixed up. Physician History: This is a pleasant 79-year-old white female who has a history of anxiety, hypertension, and gastroesophageal reflux disease and presents with asymptomatic high blood pressure. Patient had 2 readings of systolic blood pressure of 180 at home. Patient is completely asymptomatic. Patient denies headache, she denies epistaxis, she denies visual changes, she denies shortness of air, she denies chest pain and she denies abdominal pain. Patient ordinarily takes lisinopril in the morning and metoprolol once in the morning and once in the evening. She takes Lasix in the morning as well. Patient states that she thinks she took her lisinopril but may have only taken her Lasix. She took her metoprolol this morning. However, she is due for her evening dose of metoprolol at 8 PM. Upon arrival, patient's blood pressure is 165/87. She would prefer not to have an extensive work-up and states she would prefer to take a couple of readings and if they are okay she would want to go home Timing/Duration: today Severity: mild Modifying Factors: Improves With: nothing Associated Symptoms: denies symptoms Allergies/Adverse Reactions: vancomycin Adverse Reaction (Severe, Verified 07/16/19 19:18) pt states causes kidney damage Home Medications: Aspirin EC 81 mg [Ecotrin 81 mg] 81 mg PO DAILY 11/04/18 [History] Furosemide 20 mg [Lasix 20 mg] mg PO DAILY 06/07/19 [History] Metoprolol Tartrate 25 mg [Lopressor 25MG Tab] PO 06/07/19 [History] Potassium Chloride 10 Meq Tab* [Klor Con 10 MEQ] meq PO 06/07/19 [History] Hx Tetanus, Diphtheria Vaccination/Date Given: Yes Hx Influenza Vaccination/Date Given: No Hx Pneumococcal Vaccination/Date Given: Yes Immunizations Up to Date: Yes Travel Risk - International Travel Have you traveled outside of the country in past 3 weeks: No (N) Have you or anyone close to you been diagnosed with or: No Do your reside in a community with a known COVID-19 case?: Yes If Yes where:: [facility] - Coronavirus Screening Has patient experienced Coronavirus symptoms: No - Review of Systems Constitutional: No Symptoms Eyes: No Symptoms Ears, Nose, & Throat: No Symptoms Respiratory: No Symptoms Cardiac: No Symptoms Abdominal/Gastrointestinal: No Symptoms Genitourinary Symptoms: No Symptoms Musculoskeletal: No Symptoms Skin: No Symptoms Neurological: No Symptoms Psychological: No Symptoms Endocrine: No Symptoms Hematologic/Lymphatic: No Symptoms Immunological/Allergic: No Symptoms All Other Systems: Reviewed and Negative - Past Medical History Pertinent Past Medical History: Yes Neurological History: No Pertinent History ENT History: Cataracts Cardiac History: Hypertension Respiratory History: No Pertinent History Endocrine Medical History: No Pertinent History Musculoskeletal History: Osteoarthritis GI Medical History: Diverticulitis, Diverticulosis, GERD, Other History: No Pertinent History Psycho-Social History: No Pertinent History Female Reproductive Disorders: No Pertinent History Other Medical History: 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 Skin cancer removed from face 2005. colostomy - Social History Smoking Status: Former smoker Exposure to second hand smoke: Yes Alcohol Use: None Drug Use: none Patient Lives Alone: No Significant Family History: no pertinent family hx - Female History Hx Now: No - Nursing Vital Signs Nursing Vital Signs: Initial Vital Signs Temperature 98.0 F 07/16/19 19:05 Pulse Rate 89 07/16/19 19:05 Respiratory Rate 20 07/16/19 19:05 Blood Pressure 165/87 07/16/19 19:05 O2 Sat by Pulse Oximetry 96 07/16/19 19:05 Pain Scale Pain Intensity 0 - Physical Exam General Appearance: no apparent distress, alert, anxiety Eye Exam: PERRL/EOMI, eyes nml inspection Ears, Nose, Throat Exam: normal ENT inspection, moist mucous membranes Neck Exam: normal inspection, non-tender, supple, full range of motion Respiratory Exam: normal breath sounds, lungs clear, airway intact, No chest tenderness, No respiratory distress Cardiovascular Exam: regular rate/rhythm, normal heart sounds, normal peripheral pulses Gastrointestinal/Abdomen Exam: soft, normal bowel sounds, No tenderness Pelvic Exam: not done Rectal Exam: not done Back Exam: normal inspection, normal range of motion, No CVA tenderness, No vertebral tenderness Extremity Exam: normal inspection, normal range of motion, No pelvis stable Neurologic Exam: alert, 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, cooperative, crew member II-XII nml as tested, normal mood/affect, nml cerebellar function, nml station & gait, sensation nml Skin Exam: normal color, warm, dry Lymphatic Exam: No adenopathy SpO2 Interpretation: normal SpO2: 98 O2 Delivery: Room Air - Course Nursing assessment & vital signs reviewed: Yes Ordered Tests: Active Orders 24 hr Category Date Time Status Isolation, Initiate & Maintain Q4 Care 07/16/19 19:18 Active - Progress Progress: unchanged, re-examined Progress Note: 07/16/19 19:32 Medical decision making: This patient arrives to the emergency department wanting to have her blood pressure evaluated. She is not significantly hypertensive after 2 readings here in the emergency room. She is due to take her metoprolol in approximately 30 minutes. She does not want an extensive work -up of any kind. She is not having symptoms of any kind. She wants to go home and will monitor her blood pressure at home and take her medications as prescribed Counseled pt/family regarding: diagnosis, need for follow-up - Departure Departure Disposition: Home Clinical Impression: Encounter for medical screening examination Condition: Stable Critical Care Time: No Referrals: FRANKI TOBAR [Primary Care Provider] - Additional Instructions: Take your medication as prescribed. Follow-up with your primary care doctor as needed. Return to the emergency department if you are concerned about your blood pressure issues or are symptomatic.
== END 2019-07-16 19:45 | disposition home or self-care (01) ==
LOC: ED 18:54
DX: Z03.89 Encounter for observation for other suspected diseases and conditions ruled out (principal); I10 Essential (primary) hypertension; F41.9 Anxiety disorder, unspecified; K21.9 Gastro-esophageal reflux disease without esophagitis; Z79.899 Other long term (current) drug therapy; Z93.3 Colostomy status
CPT/HCPCS: 99283

== ENCOUNTER 2019-11-13 11:08 | Observation (INO) | payer MEDICARE, OTHER ==
[2019-11-13] MEDS ORDERED: NITRO-BID 2% UD PACKETS TOP ONE (11:14)
[2019-11-13] MEDS ORDERED: MORPHINE SULFATE 4 MG INJ IV ONE (11:14)
[2019-11-13] MEDS ORDERED: BABY ASPIRIN 81 MG CHEW PO ONE (11:14)
[2019-11-13] MEDS ORDERED: Sodium Chloride 0.9% 1000 ML 1,000 ML IV SCH (11:15)
[2019-11-13] MEDS ORDERED: BABY ASPIRIN 81 MG CHEW ONE (11:29)
[2019-11-13] MEDS ORDERED: NITRO-BID 2% UD PACKETS ONE (11:30)
[2019-11-13] MEDS ORDERED: Sodium Chloride 0.9% 1000 ML 1,000 ML ONE (11:31)
[2019-11-13] MEDS ORDERED: MORPHINE SULFATE 4 MG INJ ONE (11:31)
--- NOTE | 2019-11-13 11:32 | ERPHSYRPT ---
- History of Present Illness Time Seen by Provider: 11/13/19 11:31 Historian: patient Exam Limitations: no limitations Patient Subjective Stated Complaint: chest pain/SOB Triage Nursing Assessment: pt to ED c/o CP and SOb onset 10 min [employer] while at rest. denies asa or nitro usage. rates 9/10 pain that originates in chest and radiates to back and L shoulder. denies pulmonary/cardiac hx. sat 97% on RA on arrival, placed on 2L NC per md which eased resp rate to WNL. pt appears pale and diaphoretic. brought back to room in WC by RN. heart sounds clear, lung sounds clear and equal bilaterally. Physician History: chest pain/SOB for 20 minutes. Patient is 79-year-old female with significant past medical history of hyper tension hyperlipidemia was at [employer] suddenly started having a heavy pressure type of chest pain radiating to her mid back associated with shortness of breath. She did not have this type of symptoms in past. Patient was immediately brought into the emergency room by her daughter. In the emergency room patient main concern was chest pain and shortness of breath. Patient denies any nausea vomiting stomach upset diarrhea headache dizziness or syncopal episode. Timing/Duration: today Activities at Onset: rest Quality: sharpness Location: central Chest Pain Radiation: back Severity of Pain-Max: severe Severity of Pain-Current: moderate Modifying Factors: Improves With: nothing Associated Symptoms: shortness of breath, No cough, No diaphoresis, No chills, No fever, No fatigue, No syncope, No headache, No dizziness Prior Chest Pain/Cardiac Workup: no prior chest pain Nitro Today/Relief: no nitro taken today Aspirin Treatment Today: no aspirin today Allergies/Adverse Reactions: vancomycin Adverse Reaction (Severe, Verified 08/04/19 10:13) pt states causes kidney damage Home Medications: Aspirin EC 81 mg [Ecotrin 81 mg] 81 mg PO DAILY 11/04/18 [History] Furosemide 20 mg [Lasix 20 mg] 40 mg PO DAILY 06/07/19 [History] Metoprolol Tartrate 25 mg [Lopressor 25MG Tab] 50 mg PO BID 06/07/19 [History] Potassium Chloride 10 Meq Tab* [Klor Con 10 MEQ] 10 meq PO BID 06/07/19 [History] Alprazolam [Alprazolam ER] 1 mg PO BID PRN 07/16/19 [History] Atorvastatin Calcium 10 mg PO HS 07/16/19 [History] Ferrous Sulfate 324 mg PO DAILY 07/16/19 [History] PANTOPRAZOLE 40 mg Tablet [Protonix 40MG Tablet] 40 mg PO DAILY 07/16/19 [History] lisinopriL [Lisinopril] 5 mg PO DAILY 07/16/19 [History] Hx Tetanus, Diphtheria Vaccination/Date Given: Yes Hx Influenza Vaccination/Date Given: Yes Hx Pneumococcal Vaccination/Date Given: Yes Travel Risk - International Travel Have you traveled outside of the country in past 3 weeks: No - Coronavirus Screening Are you exhibiting any of the following symptoms?: Yes Symptoms: Shortness of Breath Close contact with a COVID-19 positive Pt in past 14-21 Days: No - Review of Systems Constitutional: No Fever, No Chills Eyes: No Symptoms Ears, Nose, & Throat: No Symptoms Respiratory: No Cough, No Dyspnea Cardiac: Chest Pain, No Edema, No Syncope Abdominal/Gastrointestinal: No Abdominal Pain, No Nausea, No Vomiting, No Diarrhea Genitourinary Symptoms: No Dysuria Musculoskeletal: No Back Pain, No Neck Pain Skin: No Rash Neurological: No Dizziness, No Focal Weakness, No Sensory Changes Psychological: No Symptoms Endocrine: No Symptoms All Other Systems: Reviewed and Negative - Past Medical History Pertinent Past Medical History: Yes Neurological History: No Pertinent History ENT History: Cataracts Cardiac History: High Cholesterol, Hypertension Respiratory History: No Pertinent History Endocrine Medical History: No Pertinent History Musculoskeletal History: Osteoarthritis GI Medical History: Diverticulitis, Diverticulosis, GERD, Other History: No Pertinent History Psycho-Social History: No Pertinent History Female Reproductive Disorders: No Pertinent History Other Medical History: 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 Skin cancer removed from face 2005. colostomy - Social History Smoking Status: Former smoker Exposure to second hand smoke: Yes Alcohol Use: None Drug Use: none Patient Lives Alone: No Significant Family History: no pertinent family hx - Nursing Vital Signs Nursing Vital Signs: Initial Vital Signs Temperature 98.2 F 11/13/19 11:10 Pulse Rate 70 11/13/19 11:10 Respiratory Rate 22 11/13/19 11:10 Blood Pressure 165/104 11/13/19 11:10 O2 Sat by Pulse Oximetry 97 11/13/19 11:10 Pain Scale Pain Intensity 0 - Physical Exam General Appearance: moderate distress, alert Eye Exam: PERRL/EOMI, eyes nml inspection Ears, Nose, Throat Exam: normal ENT inspection, moist mucous membranes Neck Exam: normal inspection, non-tender, supple, full range of motion Respiratory Exam: normal breath sounds, lungs clear, No respiratory distress Cardiovascular Exam: regular rate/rhythm, normal heart sounds Gastrointestinal/Abdomen Exam: soft, No tenderness, No mass Back Exam: normal inspection, No CVA tenderness, No vertebral tenderness Extremity Exam: normal inspection, normal range of motion Neurologic Exam: alert, 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, cooperative, normal mood/affect, sensation nml, No motor deficits Skin Exam: normal color, warm, dry SpO2: 99 - Course Nursing assessment & vital signs reviewed: Yes EKG Interpreted by Me: Sinus Rhythm - Radiology Exams Chest X-ray Interpretation: Reviewed by me, Negative, No Pneumonia Ordered Tests: Active Orders 24 hr Category Date Time Status Tool Machine Set Up Operator STAT Care 11/13/19 11:14 Active EKG-ER Only STAT Care 11/13/19 11:14 Active IV Insertion STAT Care 11/13/19 11:14 Active Oxygen-ED Only Nasal Cannula 2 lpm Care 11/13/19 11:14 Active Pulse Oximetry (ED) STAT Care 11/13/19 11:14 Active CHEST 1 VIEW (PORTABLE) Stat Exams 11/13/19 11:14 Taken CHEST WITH CONTRAST [CT] Stat Exams 11/13/19 12:08 Stop Req CBC W DIFF Stat Lab 11/13/19 11:25 Completed CMP Stat Lab 11/13/19 11:25 Completed D-DIMER QUANTITATIVE Stat Lab 11/13/19 11:25 Completed NT PRO BNP Stat Lab 11/13/19 11:25 Completed PROTIME WITH INR Stat Lab 11/13/19 11:25 Completed TROPONIN Q3H Lab 11/13/19 11:25 Completed TROPONIN Q3H Lab 11/13/19 14:15 Ordered TROPONIN Q3H Lab 11/13/19 17:15 Ordered TROPONIN Q3H Lab 11/13/19 20:15 Ordered TROPONIN Q3H Lab 11/13/19 23:15 Ordered Medication Summary Generic Name Dose Route Start Last Admin Trade Name Jacey PRN Reason Stop Dose Admin Sodium Chloride 1,000 mls @ 50 mls/hr 11/13/19 11:15 11/13/19 11:32 Sodium Chloride 0.9% 1000 Ml IV 12/13/19 11:14 50 mls/hr .Q20H OLGA Administration Discontinued Medications Generic Name Dose Route Start Last Admin Trade Name Jacey PRN Reason Stop Dose Admin Aspirin 81 mg 11/13/19 11:14 11/13/19 11:32 Baby Aspirin 81 Mg Chew PO 11/13/19 11:15 81 mg STAT ONE Administration Aspirin Confirm 11/13/19 11:29 Baby Aspirin 81 Mg Chew Administered 11/13/19 11:30 Dose 324 mg .ROUTE .STK-MED ONE Enoxaparin Sodium 120 mg 11/13/19 12:16 11/13/19 12:23 Enoxaparin Sodium SQ 11/13/19 12:17 120 mg STAT STA Administration Enoxaparin Sodium Confirm 11/13/19 12:21 Enoxaparin Sodium Administered 11/13/19 12:22 Dose 120 mg SQ .STK-MED ONE Morphine Sulfate 4 mg 11/13/19 11:14 11/13/19 11:32 Morphine Sulfate 4 Mg Inj IV 11/13/19 11:15 4 mg STAT ONE Administration Morphine Sulfate Confirm 11/13/19 11:31 Morphine Sulfate 4 Mg Inj Administered 11/13/19 11:32 Dose 4 mg .ROUTE .STK-MED ONE Nitroglycerin 1 gm 11/13/19 11:14 11/13/19 11:32 Nitro-Bid 2% Ud Packets TOP 11/13/19 11:15 1 gm STAT ONE Administration Nitroglycerin Confirm 11/13/19 11:30 Nitro-Bid 2% Ud Packets Administered 11/13/19 11:31 Dose 1 gm .ROUTE .STK-MED ONE Lab/Rad Data: Laboratory Result Diagrams 11/13/19 11:25 11/13/19 11:25 Laboratory Results 11/13/19 11/13/19 11/13/19 Range/Units 11:25 11:25 11:25 WBC (4.0-10.5) K/mm3 RBC (4.1-5.4) M/mm3 Hgb (12.0-16.0) gm/dl Hct (35-47) % MCV (78-100) fl MCH (26-32) pg MCHC (32-36) g/dl RDW (11.5-14.0) % Plt Count (150-450) K/mm3 MPV (7.5-11.0) fl Gran % (36.0-66.0) % Eos # (Auto) (0-0.5) Absolute Lymphs (auto) (1.0-4.6) Absolute Monos (auto) (0.0-1.3) Lymphocytes % (24.0-44.0) % Monocytes % (0.0-12.0) % Eosinophils % (0.00-5.0) % Basophils % (0.0-0.4) % Absolute Granulocytes (1.4-6.9) Basophils # (0-0.4) PT 13.3 H (9.95-12.35) SECONDS INR 1.18 (0.8-3.0) D-Dimer 864 H* (215-500) ng/mL Sodium 139 (137-145) mmol/L Potassium 4.0 (3.5-5.1) mmol/L Chloride 101 (98-107) mmol/L Carbon Dioxide 30 (22-30) mmol/L Anion Gap 11.6 (5-15) MEQ/L BUN 31 H (7-17) mg/dL Creatinine 1.53 H (0.52-1.04) mg/dL Estimated GFR 34.9 ML/MIN Glucose 123 H (74-106) mg/dL Calcium 8.9 (8.4-10.2) mg/dL Total Bilirubin 0.40 (0.2-1.3) mg/dL AST 28 (14-36) U/L ALT 18 (0-35) U/L Alkaline Phosphatase 60 (38-126) U/L Troponin I < 0.012 (0.000-0.034) ng/mL NT-Pro-B Natriuret Pep 279 (0-1800) pg/mL Serum Total Protein 7.1 (6.3-8.2) g/dL Albumin 4.0 (3.5-5.0) g/dL 11/13/19 Range/Units 11:25 WBC 6.2 (4.0-10.5) K/mm3 RBC 3.79 L (4.1-5.4) M/mm3 Hgb 11.6 L (12.0-16.0) gm/dl Hct 36.8 (35-47) % MCV 97.1 (78-100) fl MCH 30.6 (26-32) pg MCHC 31.5 L (32-36) g/dl RDW 14.2 H (11.5-14.0) % Plt Count 170 (150-450) K/mm3 MPV 10.7 (7.5-11.0) fl Gran % 56.9 (36.0-66.0) % Eos # (Auto) 0.07 (0-0.5) Absolute Lymphs (auto) 1.27 (1.0-4.6) Absolute Monos (auto) 1.30 (0.0-1.3) Lymphocytes % 20.5 L (24.0-44.0) % Monocytes % 21.0 H (0.0-12.0) % Eosinophils % 1.1 (0.00-5.0) % Basophils % 0.5 (0.0-0.4) % Absolute Granulocytes 3.52 (1.4-6.9) Basophils # 0.03 (0-0.4) PT (9.95-12.35) SECONDS INR (0.8-3.0) D-Dimer (215-500) ng/mL Sodium (137-145) mmol/L Potassium (3.5-5.1) mmol/L Chloride (98-107) mmol/L Carbon Dioxide (22-30) mmol/L Anion Gap (5-15) MEQ/L BUN (7-17) mg/dL Creatinine (0.52-1.04) mg/dL Estimated GFR ML/MIN Glucose (74-106) mg/dL Calcium (8.4-10.2) mg/dL Total Bilirubin (0.2-1.3) mg/dL AST (14-36) U/L ALT (0-35) U/L Alkaline Phosphatase (38-126) U/L Troponin I (0.000-0.034) ng/mL NT-Pro-B Natriuret Pep (0-1800) pg/mL Serum Total Protein (6.3-8.2) g/dL Albumin (3.5-5.0) g/dL - Progress Progress: improved Air Movement: good Blood Culture(s) Obtained: No Antibiotics given: No Discussed with : Jose Will see patient in: hospital (observation) Counseled pt/family regarding: lab results, diagnosis, need for follow-up, rad results - Departure Departure Disposition: Observation Clinical Impression: Shortness of breath, Chest pain at rest Dyspnea Qualifiers: Dyspnea type: acute respiratory distress Qualified Code(s): R06.03 - Acute respiratory distress Condition: Fair Critical Care Time: Yes Critical Care Time(excluding separately billable procedures): Critical 30-74 mins Referrals: FRANKI TOBAR [Primary Care Provider] -
[2019-11-13 11:43] LABS: INR 1.18 (0.8-3.0); PROTIME 13.3 SECONDS (9.95-12.35)
[2019-11-13 11:57] LABS: Absolute Neutrophil Ct (ANC) 3.52 (1.4-6.9); BASOPHIL % 0.5 % (0.0-0.4); Basophil (Absolute #) 0.03 (0-0.4); Eosinophil % 1.1 % (0.00-5.0); Eosinophil (Absolute #) 0.07 (0-0.5); Hematocrit 36.8 % (35-47); Hemoglobin 11.6 gm/dl (12.0-16.0); Lymphocyte (Absolute #) 1.27 (1.0-4.6); Lymphocytes % 20.5 % (24.0-44.0); Mean Cell Volume 97.1 fl (78-100); Mean Corpuscular Hemoglobin 30.6 pg (26-32); Mean Corpuscular Hgb Concent. 31.5 g/dl (32-36); Mean Platelet Volume 10.7 fl (7.5-11.0); Neutrophil % 56.9 % (36.0-66.0); Platelet Count 170 K/mm3 (150-450); Red Blood Count 3.79 M/mm3 (4.1-5.4); Red Cell Distribution Width 14.2 % (11.5-14.0); White Blood Count 6.2 K/mm3 (4.0-10.5)
[2019-11-13] MEDS ORDERED: ENOXAPARIN SODIUM SQ STA (12:16)
[2019-11-13 12:18] LABS: ANION GAP 11.6 MEQ/L (5-15); BILIRUBIN,TOTAL 0.4 mg/dL (0.2-1.3); Calcium 8.9 mg/dL (8.4-10.2); Creatinine 1 1.53 mg/dL (0.52-1.04); EST GLOMERULAR FILTRATION RATE 34.9 ML/MIN; Total Protein 7.1 g/dL (6.3-8.2)
[2019-11-13] MEDS ORDERED: ENOXAPARIN SODIUM SQ ONE (12:21)
[2019-11-13] MEDS ORDERED: Sodium Chloride 0.9% 500 ML 500 ML IV SCH (13:45)
[2019-11-13] MEDS ORDERED: Senokot-S Tablet PO PRN (13:45)
[2019-11-13] MEDS ORDERED: MILK OF MAGNESIA 30 ML PO PRN (13:45)
[2019-11-13] MEDS ORDERED: MAALOX ES 30 ML UNIT DOSE PO PRN (13:45)
[2019-11-13] MEDS ORDERED: Zofran 4 MG/2 ML VIAL IV PRN (13:45)
[2019-11-13] MEDS ORDERED: TYLENOL 325 MG PO PRN (13:45)
--- NOTE | 2019-11-13 19:40 | XRAY ---
Indication: Chest pain. Comparison: November 08, 2018. Portable chest demonstrates new left mid lung subsegmental atelectasis/scarring. Remaining heart and lungs normal with stable calcified granulomas. Bony thorax intact again with mild degenerative changes.
[2019-11-13] MEDS ORDERED: Zocor 10MG PO SCH (22:00)
[2019-11-13] MEDS ORDERED: XANAX 1 MG PO SCH (22:00)
[2019-11-14] MEDS: ENOXAPARIN SODIUM SQ SCH ×2 (00:25→09:10)
[2019-11-14 05:14] LABS: Risk Ratio 4.4
[2019-11-14] MEDS ORDERED: XANAX 1 MG PO PRN (07:15)
[2019-11-14 07:36] VITALS: BP 150/68; PULSE 82
[2019-11-14 07:49] VITALS: O2SAT 91
--- NOTE | 2019-11-14 09:32 | XRAY ---
Indication: Left chest pain and short of breath. Poor renal function precludes CT pulmonary embolus exam. Comparison: None Patient received 5.7 mCi technetium 99 MAA for the perfusion portion of exam. Patient inhaled 34.4 mCi of aerosolized technetium 99 DTPA. Multiple planar images obtained. Both ventilation and perfusion images demonstrates external radiopharmaceutical contamination in the right anterior chest. Perfusion images demonstrates presumed right chest artifact defect only seen on the posterior image. No focal lobar or segmental perfusion defect. Ventilation images demonstrates homogeneous radiopharmaceutical activity bilaterally. Impression: 1. Right anterior chest external contamination and right posterior chest artifact. 2. No focal ventilation perfusion defect to suggest pulmonary embolus.
[2019-11-14] MEDS ORDERED: Lasix 40 MG PO SCH (10:00)
[2019-11-14] MEDS ORDERED: Zestril 10 MG PO SCH (10:00)
[2019-11-14] MEDS ORDERED: Protonix 40MG Tablet PO SCH (10:00)
[2019-11-14] MEDS ORDERED: ECOTRIN 81 MG PO SCH (10:00)
--- NOTE | 2019-11-14 10:04 | PCM.SSS ---
History of Present Illness - Chief Complaint Chief Complaint: SOB, CP, DYSPNEA Date: 11/14/19 History of Present Illness: is a 79 year old female that presented to ER yesterday due to becoming severely short of breath. Patient reports she was getting ready for faith and became very short of breath. Patient reports that she felt sweaty at the time as well. She wasnt sure if this was her anxiety that was causing her to feel this way. She reports that she came to the ER and whatever medicine they gave her improved her symptoms. Patient reports that she has had a mild cough but not productive. She reports that she just got back from having the nuc med s tudy that was ordered. 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 She does report she has a large left sided hernia. She reports that she feels better and would like to go home if possible. - Review of Systems Constitutional: No Fever Eyes: No Symptoms Ears, Nose, & Throat: Sinus Drainage Respiratory: Cough, Short Of Breath, No Wheezing Cardiac: Chest Pain, No Edema, No Palpitations Abdominal/Gastrointestinal: No Symptoms, Abdominal Pain, Other (has colostomy), No Nausea, No Vomiting, No Diarrhea, No Constipation Genitourinary Symptoms: No Symptoms Skin: No Symptoms Neurological: No Headache Psychological: Anxiety, No Alcohol Abuse, No Drug Abuse Hematologic/Lymphatic: No Anemia, No Blood Clots Medications & Allergies Home Medications: Home Medication List Aspirin EC 81 mg [Ecotrin 81 mg] 81 mg PO DAILY 11/04/18 [History Confirmed 11/13/19] Furosemide 20 mg [Lasix 20 mg] 40 mg PO DAILY 06/07/19 [History Confirmed 11/13/19] Alprazolam [Alprazolam ER] 1 mg PO BID PRN 07/16/19 [History Confirmed 11/13/19] Atorvastatin Calcium 10 mg PO HS 07/16/19 [History Confirmed 11/13/19] PANTOPRAZOLE 40 mg Tablet [Protonix 40MG Tablet] 40 mg PO DAILY 07/16/19 [History Confirmed 11/13/19] lisinopriL [Lisinopril] 10 mg PO DAILY 07/16/19 [History Confirmed 11/13/19] Allergies/Adverse Reactions: Allergies Allergy/AdvReac Type Severity Reaction Status Date / Time vancomycin AdvReac Severe Verified 11/13/19 14:55 - Past Medical History Past Medical History: Yes Neurological History: No Pertinent History ENT History: Cataracts Cardiac History: High Cholesterol, Hypertension Respiratory History: No Pertinent History Endocrine Medical History: No Pertinent History Musculoskelatal History: Osteoarthritis GI Medical History: Diverticulitis, Diverticulosis, GERD, Other History: No Pertinent History Pyscho-Social History: No Pertinent History Reproductive Disorders: No Pertinent History Comment: CYST ON KIDNEY/STOMACH AREA, 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 Skin cancer removed from face 2005. colostomy - Social History Smoking Status: Former smoker Exposure to second hand smoke: Yes Alcohol: None Drug Use: none Significant Family History: no pertinent family hx - Physical Exam Vital Signs: Vital Signs - 24 hr Temp Pulse Pulse Resp BP Pulse Ox 11/14/19 07:48 91 L 11/14/19 07:35 98.1 F 82 17 150/68 95 11/14/19 07:26 98 11/14/19 04:00 98.1 F 57 L 20 88/47 98 11/13/19 23:46 98.3 F 58 L 18 117/60 98 11/13/19 19:49 97.9 F 60 16 134/65 99 11/13/19 19:29 99 11/13/19 18:00 97 11/13/19 16:00 98.0 F 57 L 16 134/60 97 11/13/19 15:05 98.2 F 59 L 137/59 96 11/13/19 14:46 96 11/13/19 12:37 99 11/13/19 12:11 59 L 20 137/59 100 11/13/19 11:21 99 11/13/19 11:10 98.2 F 65 70 22 165/104 97 Oxygen-Last 24 hours Oxygen Flowrate (L/min)-RT 2 Oxygen Flowrate (L/min)-RT 2 Oxygen Flowrate (L/min)-RT 2 General Appearance: no apparent distress Neurologic Exam: alert, 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, cooperative Neck Exam: normal inspection Respiratory Exam: normal breath sounds, lungs clear, No respiratory distress, No diminished breath sounds, No crackles/rales, No rhonchi, No wheezing Cardiovascular Exam: regular rate/rhythm, normal heart sounds, No edema Gastrointestinal/Abdomen Exam: soft, normal bowel sounds, hernia, other (Patient has large ventral hernia and colostomy bag present), No tenderness Pelvic Exam: not done Rectal Exam: not done Back Exam: normal inspection Extremity Exam: No pedal edema, No swelling Skin Exam: normal color, warm, dry, No rash Results - Labs Lab/Micro Results: Lab Results-Last 24 Hours 11/13/19 11/13/19 11/13/19 Range/Units 11:25 11:25 11:25 WBC 6.2 (4.0-10.5) K/mm3 RBC 3.79 L (4.1-5.4) M/mm3 Hgb 11.6 L (12.0-16.0) gm/dl Hct 36.8 (35-47) % MCV 97.1 (78-100) fl MCH 30.6 (26-32) pg MCHC 31.5 L (32-36) g/dl RDW 14.2 H (11.5-14.0) % Plt Count 170 (150-450) K/mm3 MPV 10.7 (7.5-11.0) fl Gran % 56.9 (36.0-66.0) % Eos # (Auto) 0.07 (0-0.5) Absolute Lymphs (auto) 1.27 (1.0-4.6) Absolute Monos (auto) 1.30 (0.0-1.3) Lymphocytes % 20.5 L (24.0-44.0) % Monocytes % 21.0 H (0.0-12.0) % Eosinophils % 1.1 (0.00-5.0) % Basophils % 0.5 (0.0-0.4) % Absolute Granulocytes 3.52 (1.4-6.9) Basophils # 0.03 (0-0.4) PT 13.3 H (9.95-12.35) SECONDS INR 1.18 (0.8-3.0) D-Dimer 864 H* (215-500) ng/mL Sodium 139 (137-145) mmol/L Potassium 4.0 (3.5-5.1) mmol/L Chloride 101 (98-107) mmol/L Carbon Dioxide 30 (22-30) mmol/L Anion Gap 11.6 (5-15) MEQ/L BUN 31 H (7-17) mg/dL Creatinine 1.53 H (0.52-1.04) mg/dL Estimated GFR 34.9 ML/MIN Glucose 123 H (74-106) mg/dL Calcium 8.9 (8.4-10.2) mg/dL Total Bilirubin 0.40 (0.2-1.3) mg/dL AST 28 (14-36) U/L ALT 18 (0-35) U/L Alkaline Phosphatase 60 (38-126) U/L Troponin I (0.000-0.034) ng/mL NT-Pro-B Natriuret Pep 279 (0-1800) pg/mL Serum Total Protein 7.1 (6.3-8.2) g/dL Albumin 4.0 (3.5-5.0) g/dL Triglycerides (30-150) mg/dL Cholesterol (50-200) mg/dL LDL Cholesterol (30-100) mg/dL HDL Cholesterol (40-60) mg/dL Heart Disease Risk Ratio 11/13/19 11/13/19 11/13/19 Range/Units 11:25 14:20 17:26 WBC (4.0-10.5) K/mm3 RBC (4.1-5.4) M/mm3 Hgb (12.0-16.0) gm/dl Hct (35-47) % MCV (78-100) fl MCH (26-32) pg MCHC (32-36) g/dl RDW (11.5-14.0) % Plt Count (150-450) K/mm3 MPV (7.5-11.0) fl Gran % (36.0-66.0) % Eos # (Auto) (0-0.5) Absolute Lymphs (auto) (1.0-4.6) Absolute Monos (auto) (0.0-1.3) Lymphocytes % (24.0-44.0) % Monocytes % (0.0-12.0) % Eosinophils % (0.00-5.0) % Basophils % (0.0-0.4) % Absolute Granulocytes (1.4-6.9) Basophils # (0-0.4) PT (9.95-12.35) SECONDS INR (0.8-3.0) D-Dimer (215-500) ng/mL Sodium (137-145) mmol/L Potassium (3.5-5.1) mmol/L Chloride (98-107) mmol/L Carbon Dioxide (22-30) mmol/L Anion Gap (5-15) MEQ/L BUN (7-17) mg/dL Creatinine (0.52-1.04) mg/dL Estimated GFR ML/MIN Glucose (74-106) mg/dL Calcium (8.4-10.2) mg/dL Total Bilirubin (0.2-1.3) mg/dL AST (14-36) U/L ALT (0-35) U/L Alkaline Phosphatase (38-126) U/L Troponin I < 0.012 < 0.012 < 0.012 (0.000-0.034) ng/mL NT-Pro-B Natriuret Pep (0-1800) pg/mL Serum Total Protein (6.3-8.2) g/dL Albumin (3.5-5.0) g/dL Triglycerides (30-150) mg/dL Cholesterol (50-200) mg/dL LDL Cholesterol (30-100) mg/dL HDL Cholesterol (40-60) mg/dL Heart Disease Risk Ratio 11/13/19 11/13/19 11/14/19 Range/Units 20:15 23:30 04:30 WBC (4.0-10.5) K/mm3 RBC (4.1-5.4) M/mm3 Hgb (12.0-16.0) gm/dl Hct (35-47) % MCV (78-100) fl MCH (26-32) pg MCHC (32-36) g/dl RDW (11.5-14.0) % Plt Count (150-450) K/mm3 MPV (7.5-11.0) fl Gran % (36.0-66.0) % Eos # (Auto) (0-0.5) Absolute Lymphs (auto) (1.0-4.6) Absolute Monos (auto) (0.0-1.3) Lymphocytes % (24.0-44.0) % Monocytes % (0.0-12.0) % Eosinophils % (0.00-5.0) % Basophils % (0.0-0.4) % Absolute Granulocytes (1.4-6.9) Basophils # (0-0.4) PT (9.95-12.35) SECONDS INR (0.8-3.0) D-Dimer (215-500) ng/mL Sodium (137-145) mmol/L Potassium (3.5-5.1) mmol/L Chloride (98-107) mmol/L Carbon Dioxide (22-30) mmol/L Anion Gap (5-15) MEQ/L BUN (7-17) mg/dL Creatinine (0.52-1.04) mg/dL Estimated GFR ML/MIN Glucose (74-106) mg/dL Calcium (8.4-10.2) mg/dL Total Bilirubin (0.2-1.3) mg/dL AST (14-36) U/L ALT (0-35) U/L Alkaline Phosphatase (38-126) U/L Troponin I < 0.012 < 0.012 (0.000-0.034) ng/mL NT-Pro-B Natriuret Pep (0-1800) pg/mL Serum Total Protein (6.3-8.2) g/dL Albumin (3.5-5.0) g/dL Triglycerides 113 (30-150) mg/dL Cholesterol 149 (50-200) mg/dL LDL Cholesterol 88 (30-100) mg/dL HDL Cholesterol 34 L (40-60) mg/dL Heart Disease Risk Ratio 4.4 - Radiology Impressions Radiology Exams & Impressions: Radiology Procedures Category Date Time Status CHEST 1 VIEW (PORTABLE) Stat Exams 11/13/19 11:14 Completed PULMONARY PERF VENTILATION [NUCMED] Routine Exams 11/14/19 08:00 Completed - Other Procedures and Tests Respiratory Therapy 11/13/19 13:45 Oxygen Nasal Cannula 2 lpm 11/15/19 05:00 EKG ONCE 11/16/19 05:00 EKG ONCE Assessment/Plan (1) Chest pain at rest Status: Acute Assessment & Plan: Patient had ekg x2 and trop x5 that were neg for STEMI. She did get nitro paste in ER. Patient reports that her chest pain and shortness of breath have resolved. Patient has a veterinary pathologist S Miner and will need to follow up with him for further workup. She could have some arrhythmia that caused her symptoms. 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 Rates 9/10 pain that originates in chest and radiates to back and L shoulder. denies pulmonary/cardiac hx. sat 97% on RA on arrival, placed on 2L NC per md which eased resp rate to WNL. pt appears pale and diaphoretic. brought back to room in WC by RN. heart sounds clear, lung sounds clear and equal bilaterally. Patient was given nitro paste in ER. She was admitted to hospital for observation. She had nuclear med test this am which was neg for PE. She reported that her symptoms had resolved. She will be discharged today to follow up with PCP and veterinary pathologist for CP. - Vitals & Intake/Output Vital Signs: Vital Signs Temperature 98.1 F 11/14/19 07:35 Pulse Rate 82 11/14/19 07:35 Respiratory Rate 17 11/14/19 07:35 Blood Pressure 150/68 11/14/19 07:35 O2 Sat by Pulse Oximetry 91 L 11/14/19 07:48 Intake & Output: Intake & Output 11/11/19 11/12/19 11/13/19 11/14/19 11:59 11:59 11:59 11:59 Intake Total 1131 Balance 1131 Weight 125.1 kg 124.1 kg - Lab Result Diagrams: 11/13/19 11:25 11/13/19 11:25 Lab Results-Last 24 Hrs: Lab Results-Last 24 Hours 11/13/19 11/13/19 11/13/19 Range/Units 11:25 11:25 11:25 WBC 6.2 (4.0-10.5) K/mm3 RBC 3.79 L (4.1-5.4) M/mm3 Hgb 11.6 L (12.0-16.0) gm/dl Hct 36.8 (35-47) % MCV 97.1 (78-100) fl MCH 30.6 (26-32) pg MCHC 31.5 L (32-36) g/dl RDW 14.2 H (11.5-14.0) % Plt Count 170 (150-450) K/mm3 MPV 10.7 (7.5-11.0) fl Gran % 56.9 (36.0-66.0) % Eos # (Auto) 0.07 (0-0.5) Absolute Lymphs (auto) 1.27 (1.0-4.6) Absolute Monos (auto) 1.30 (0.0-1.3) Lymphocytes % 20.5 L (24.0-44.0) % Monocytes % 21.0 H (0.0-12.0) % Eosinophils % 1.1 (0.00-5.0) % Basophils % 0.5 (0.0-0.4) % Absolute Granulocytes 3.52 (1.4-6.9) Basophils # 0.03 (0-0.4) PT 13.3 H (9.95-12.35) SECONDS INR 1.18 (0.8-3.0) D-Dimer 864 H* (215-500) ng/mL Sodium 139 (137-145) mmol/L Potassium 4.0 (3.5-5.1) mmol/L Chloride 101 (98-107) mmol/L Carbon Dioxide 30 (22-30) mmol/L Anion Gap 11.6 (5-15) MEQ/L BUN 31 H (7-17) mg/dL Creatinine 1.53 H (0.52-1.04) mg/dL Estimated GFR 34.9 ML/MIN Glucose 123 H (74-106) mg/dL Calcium 8.9 (8.4-10.2) mg/dL Total Bilirubin 0.40 (0.2-1.3) mg/dL AST 28 (14-36) U/L ALT 18 (0-35) U/L Alkaline Phosphatase 60 (38-126) U/L Troponin I (0.000-0.034) ng/mL NT-Pro-B Natriuret Pep 279 (0-1800) pg/mL Serum Total Protein 7.1 (6.3-8.2) g/dL Albumin 4.0 (3.5-5.0) g/dL Triglycerides (30-150) mg/dL Cholesterol (50-200) mg/dL LDL Cholesterol (30-100) mg/dL HDL Cholesterol (40-60) mg/dL Heart Disease Risk Ratio 11/13/19 11/13/19 11/13/19 Range/Units 11:25 14:20 17:26 WBC (4.0-10.5) K/mm3 RBC (4.1-5.4) M/mm3 Hgb (12.0-16.0) gm/dl Hct (35-47) % MCV (78-100) fl MCH (26-32) pg MCHC (32-36) g/dl RDW (11.5-14.0) % Plt Count (150-450) K/mm3 MPV (7.5-11.0) fl Gran % (36.0-66.0) % Eos # (Auto) (0-0.5) Absolute Lymphs (auto) (1.0-4.6) Absolute Monos (auto) (0.0-1.3) Lymphocytes % (24.0-44.0) % Monocytes % (0.0-12.0) % Eosinophils % (0.00-5.0) % Basophils % (0.0-0.4) % Absolute Granulocytes (1.4-6.9) Basophils # (0-0.4) PT (9.95-12.35) SECONDS INR (0.8-3.0) D-Dimer (215-500) ng/mL Sodium (137-145) mmol/L Potassium (3.5-5.1) mmol/L Chloride (98-107) mmol/L Carbon Dioxide (22-30) mmol/L Anion Gap (5-15) MEQ/L BUN (7-17) mg/dL Creatinine (0.52-1.04) mg/dL Estimated GFR ML/MIN Glucose (74-106) mg/dL Calcium (8.4-10.2) mg/dL Total Bilirubin (0.2-1.3) mg/dL AST (14-36) U/L ALT (0-35) U/L Alkaline Phosphatase (38-126) U/L Troponin I < 0.012 < 0.012 < 0.012 (0.000-0.034) ng/mL NT-Pro-B Natriuret Pep (0-1800) pg/mL Serum Total Protein (6.3-8.2) g/dL Albumin (3.5-5.0) g/dL Triglycerides (30-150) mg/dL Cholesterol (50-200) mg/dL LDL Cholesterol (30-100) mg/dL HDL Cholesterol (40-60) mg/dL Heart Disease Risk Ratio 11/13/19 11/13/19 11/14/19 Range/Units 20:15 23:30 04:30 WBC (4.0-10.5) K/mm3 RBC (4.1-5.4) M/mm3 Hgb (12.0-16.0) gm/dl Hct (35-47) % MCV (78-100) fl MCH (26-32) pg MCHC (32-36) g/dl RDW (11.5-14.0) % Plt Count (150-450) K/mm3 MPV (7.5-11.0) fl Gran % (36.0-66.0) % Eos # (Auto) (0-0.5) Absolute Lymphs (auto) (1.0-4.6) Absolute Monos (auto) (0.0-1.3) Lymphocytes % (24.0-44.0) % Monocytes % (0.0-12.0) % Eosinophils % (0.00-5.0) % Basophils % (0.0-0.4) % Absolute Granulocytes (1.4-6.9) Basophils # (0-0.4) PT (9.95-12.35) SECONDS INR (0.8-3.0) D-Dimer (215-500) ng/mL Sodium (137-145) mmol/L Potassium (3.5-5.1) mmol/L Chloride (98-107) mmol/L Carbon Dioxide (22-30) mmol/L Anion Gap (5-15) MEQ/L BUN (7-17) mg/dL Creatinine (0.52-1.04) mg/dL Estimated GFR ML/MIN Glucose (74-106) mg/dL Calcium (8.4-10.2) mg/dL Total Bilirubin (0.2-1.3) mg/dL AST (14-36) U/L ALT (0-35) U/L Alkaline Phosphatase (38-126) U/L Troponin I < 0.012 < 0.012 (0.000-0.034) ng/mL NT-Pro-B Natriuret Pep (0-1800) pg/mL Serum Total Protein (6.3-8.2) g/dL Albumin (3.5-5.0) g/dL Triglycerides 113 (30-150) mg/dL Cholesterol 149 (50-200) mg/dL LDL Cholesterol 88 (30-100) mg/dL HDL Cholesterol 34 L (40-60) mg/dL Heart Disease Risk Ratio 4.4 - Radiology Exams Ordered Rad Exams-Entire Visit: Radiology Procedures Category Date Time Status CHEST 1 VIEW (PORTABLE) Stat Exams 11/13/19 11:14 Completed PULMONARY PERF VENTILATION [NUCMED] Routine Exams 11/14/19 08:00 Completed - Procedures and Test Procedures and Tests throughout Hospitalization: Therapy Orders & Screens 11/13/19 13:45 EKG Q8HX2,QAMX3,PRN Comment: Oxygen Nasal Cannula 2 lpm Comment: 11/13/19 19:30 EKG ONCE Comment: Diagnosis: chest pain, shortness of breath. R/O 11/14/19 03:30 EKG ONCE Comment: Diagnosis: chest pain, shortness of breath. R/O 11/15/19 05:00 EKG ONCE Comment: Diagnosis: chest pain, shortness of breath. R/O 11/16/19 05:00 EKG ONCE Comment: Diagnosis: chest pain, shortness of breath. R/O - Discharge Disposition: Home, Self-Care Condition: Fair Prescriptions: Continue Aspirin EC 81 mg [Ecotrin 81 mg] 81 mg PO DAILY Furosemide 20 mg [Lasix 20 mg] 40 mg PO DAILY lisinopriL [Lisinopril] 10 mg PO DAILY PANTOPRAZOLE 40 mg Tablet [Protonix 40MG Tablet] 40 mg PO DAILY Atorvastatin Calcium 10 mg PO HS Alprazolam [Alprazolam ER] 1 mg PO BID PRN Instructions: Angina (DC) Additional Instructions: DR. BORJAS'S OFFICE WILL CALL YOU WITH AN APPOINTMENT. Follow up with: FRANKI TOBAR [Primary Care Provider] - 11/22/19 10:45 am KOFI MINER MD [CONSULTING PHYSICIAN] - 1 Week (DR KOFI MINER'S OFFIC E WILL CONTACT PATIENT WITH APPOINTMENT DATE AND TIME.)
== END 2019-11-14 10:05 | disposition home or self-care (01) ==
LOC: ED 11:08 → MED SURG 13:37
PROVIDERS: ADMIT Family Medicine; ATTEND Family Medicine
DX: R07.9 Chest pain, unspecified (principal); R06.02 Shortness of breath; I10 Essential (primary) hypertension; E78.00 Pure hypercholesterolemia, unspecified; F41.9 Anxiety disorder, unspecified; E78.5 Hyperlipidemia, unspecified; Z79.899 Other long term (current) drug therapy
CPT/HCPCS: 36000; 36415; 71045; 78582; 80053; 80061; 83721; 83880; 84484; 85025; 85379; 85610; 93005; 93041; 94760; 96372; 96374; 99285; 99291; A9540; A9567; 93268; J1650; J2270; A9270-GY; G0378

== ENCOUNTER 2019-12-03 21:48 | Emergency (ER) | payer MEDICARE, OTHER ==
--- NOTE | 2019-12-03 22:17 | ERPHSYRPT ---
- History of Present Illness Time Seen by Provider: 12/03/19 22:13 Source: patient Exam Limitations: no limitations Patient Subjective Stated Complaint: "I was bending over to pick something up in my bathroom when I tripped and fell." Triage Nursing Assessment: Patient reported a signle mechanical fall at home. Reported that she tripped on a towel in her bathroom. Reported that she struck her head at an oblique angle along the wall without loss of consciousness. Reported pain the the superior left shoulder and non-radiating. Pain described as constant dull and worse with movement. Denied headache, dizziness, numbness/tingling. Head atraumatic normocephalic. Pupils 4mm brisk direct and consensual reaction. Oral mucosa pink and moist without ulcerations/lesions. Neck supple non-tender. Trachea midline without JVD. Symmetrical chest expan marisa. Tenderness noted to the superior aspect of the left shoulder. No noted DCAPBTLS. Peripheral pulses +2 bilateral. Patient ambulated without complications or assistive devices. Physician History: "I was bending over to pick something up in my bathroom when I tripped and fell."- just prior to arrival to ER. Patient reported a single mechanical fall at home. Reported that she tripped on a towel in her bathroom. Reported that she struck her head at an oblique angle along the wall without loss of consciousness. Reported pain the the superior left shoulder and non-radiating. Pain described as constant dull and worse with movement. Denied headache, dizziness, numbness/tingling. Patient ambulated without complications or assistive devices. Occurred: just prior to arrival Method of Injury: fell Quality: constant Severity of Pain-Max: moderate Severity of Pain-Current: moderate Extremities Pain Location: shoulder: left (tenderness in suprascapular area) Modifying Factors: Improves With: cold therapy Associated Symptoms: none Allergies/Adverse Reactions: vancomycin Adverse Reaction (Severe, Verified 11/13/19 14:55) pt states causes kidney damage Home Medications: Aspirin EC 81 mg [Ecotrin 81 mg] 81 mg PO DAILY 11/04/18 [History] Furosemide 20 mg [Lasix 20 mg] 40 mg PO DAILY 06/07/19 [History] Alprazolam [Alprazolam ER] 1 mg PO BID PRN 07/16/19 [History] Atorvastatin Calcium 10 mg PO HS 07/16/19 [History] PANTOPRAZOLE 40 mg Tablet [Protonix 40MG Tablet] 40 mg PO DAILY 07/16/19 [History] lisinopriL [Lisinopril] 10 mg PO DAILY 07/16/19 [History] Ferrous Gluconate 1 tab PO BID 12/03/19 [History] Hx Tetanus, Diphtheria Vaccination/Date Given: Yes Hx Influenza Vaccination/Date Given: Yes Hx Pneumococcal Vaccination/Date Given: Yes Travel Risk - International Travel Have you traveled outside of the country in past 3 weeks: No - Coronavirus Screening Are you exhibiting any of the following symptoms?: No Close contact with a COVID-19 positive Pt in past 14-21 Days: No - Review of Systems Constitutional: No Fever, No Chills Eyes: No Symptoms Ears, Nose, & Throat: No Symptoms Respiratory: No Cough, No Dyspnea Cardiac: No Chest Pain, No Edema, No Syncope Abdominal/Gastrointestinal: No Abdominal Pain, No Nausea, No Vomiting, No Diarrhea Genitourinary Symptoms: No Dysuria Musculoskeletal: Fall, Joint Pain (left shoulder), No Back Pain, No Neck Pain Skin: No Rash Neurological: No Dizziness, No Focal Weakness, No Sensory Changes Psychological: No Symptoms Endocrine: No Symptoms All Other Systems: Reviewed and Negative - Past Medical History Pertinent Past Medical History: Yes Neurological History: No Pertinent History ENT History: Cataracts Cardiac History: High Cholesterol, Hypertension Respiratory History: No Pertinent History Endocrine Medical History: No Pertinent History Musculoskeletal History: Osteoarthritis GI Medical History: Diverticulitis, Diverticulosis, GERD, Other History: No Pertinent History Psycho-Social History: No Pertinent History Female Reproductive Disorders: No Pertinent History Other Medical History: 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 Skin cancer removed from face 2006. colostomy - Social History Smoking Status: Former smoker Exposure to second hand smoke: Yes Alcohol Use: None Drug Use: none Patient Lives Alone: Yes Significant Family History: no pertinent family hx - Nursing Vital Signs Nursing Vital Signs: Initial Vital Signs Temperature 98.6 F 10/17/20 21:49 Pulse Rate 78 12/03/19 21:49 Respiratory Rate 18 12/03/19 21:49 O2 Sat by Pulse Oximetry 97 12/03/19 21:49 Pain Scale Pain Intensity 8 - Physical Exam General Appearance: alert Eyes, Ears, Nose, Throat Exam: moist mucous membranes Neck Exam: non-tender, supple Cardiovascular/Respiratory Exam: chest non-tender, normal breath sounds, regular rate/rhythm, no respiratory distress Abdominal Exam: non-tender, No guarding Back Exam: normal inspection, No vertebral tenderness Shoulder Exam: limited ROM, soft tissue tenderness Elbow/Forearm Exam: normal inspection Wrist Exam: normal inspection Hand Exam: normal inspection Neuro/Tendon Exam: normal sensation, normal motor functions Mental Status Exam: alert, 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, cooperative Skin Exam: normal color, warm, dry SpO2: 97 - Course Nursing assessment & vital signs reviewed: Yes - Radiology Exams Shoulder X-ray Interpretation: Reviewed by me, Negative, No Fracture Ordered Tests: Active Orders 24 hr Category Date Time Status SHOULDER Stat Exams 12/03/19 21:57 Ordered - Progress Progress: unchanged, pain not gone completely Counseled pt/family regarding: diagnosis, need for follow-up, rad results - Departure Departure Disposition: Home Clinical Impression: Left shoulder strain Qualifiers: Encounter type: initial encounter Qualified Code(s): S46.912A - Strain of unspecified muscle, fascia and tendon at shoulder and upper arm level, left arm, initial encounter Fall at home Qualifiers: Encounter type: initial encounter Qualified Code(s): W19.XXXA - Unspecified fall, initial encounter; Y92.009 - Unspecified place in unspecified non- institutional (private) residence as the place of occurrence of the external cause Condition: Stable Critical Care Time: No Referrals: FRANKI TOBAR [Primary Care Provider] - [facility] [id number] Instructions: Shoulder Sprain (DC) Additional Instructions: Discharge/Care Plan BEVERLY WALLACEY was seen on 12/03/19 in the Emergency Room. The patient was counseled regarding Diagnosis,Lab results, Imaging studies, need for follow up and when to return to the Emergency Room. Prescriptions given: Discharge Note I have spoken with the patient and/or caregivers. I have explained the patient's condition, diagnosis and treatment plan based on the information available to me at this time. I have answered the patient's and/or caregiver's questions and addressed any concerns. The patient and/or caregivers have as good understanding of the patient's diagnosis, condition and treatment plan as can be expected at this point. The vital signs have been stable. The patient's condition is stable and appropriate for discharge from the emergency department. The patient will pursue further outpatient evaluation with the primary care physician or other designated or consulting physician as outlined in the discharge instructions. The patient and/or caregivers are agreeable to this plan of care and follow-up instructions have been explained in detail. The patient and/or caregivers have received these instruction. The patient/and or caregivers are aware that any significant change in condition or worsening of symptoms should prompt an immediate return to this or the closest emergency department or call 911. BEVERLY WALLACE VISHNU was seen on 12/03/19 n the Emergency Room. At that time you were treated for an emergent condition, during your visit Laboratory, Radiology and/or other procedures may have been ordered. It is very important that you follow-up with your Primary Care Physician FRANKI TOBAR within the next 24-48 hours to review your Emergency Room visit and the final results of testing that was ordered. Some test results such as Urine Cultures, Blood Cultures, and other cultures if ordered will not be finalized for 24-48 hours. If you do not have a Primary Care Provider please call the medical records department at [phone] ext [phone] to obtain a copy of your results or you may sign into our patient portal to obtain these results by visiting us @ [email or web address] and completing the following steps: 1. Click on the Patient Portal link 2. Click the Patient Self Enrollment Link to complete the enrollment form and entering your 3. Once the enrollment form is completed you will receive an email with a temporary ID and password at the email address you provided. 4. Next choose a user name and password. Your user name must be at least 4 characters long and your password must be at least 4 characters long. 5. Choose a security question from the list and provide your answer to the question. If you already have signed into the Health Portal you may access your Health Care Information 08/09 by the following steps: 1. Login to our website @ [email or web address] 2. Enter your original user name and password. FAQS The [facility] Health Portal is an online tool that contains your Lab Results, Radiology Reports, Visit History, Discharge Instructions and Health Summary Lab and Radiology Results will not be available for 72 hours on the portal. The Portal is a secure site, passwords are encryted and URLs are re-written so they cannot be copied and pasted. You and authorized family members are the only ones who can access your Portal. Also there is a timeout feature that protects your information if you leave the Portal page open. If you have technical difficulty please use the Contact Us link on the page this will allow you to submit any questions you have regarding the Portal or you may contact the Medical Record Department at [phone] ext [phone]. Prescriptions: Naproxen 375 mg [Naprosyn 375 mg] 375 mg PO BID #30 tablet
[2019-12-03] MEDS ORDERED: TORAdol 30 mg Injection IM ONE (22:21)
[2019-12-03] MEDS ORDERED: TORAdol 30 mg Injection ONE (22:23)
[2019-12-03 22:33] VITALS: BP 187/79; PULSE 74; O2SAT 95
--- NOTE | 2019-12-04 07:09 | XRAY ---
Indication: Pain following fall. Comparison: None 3 view left shoulder demonstrates osteopenia, moderate AC degenerative arthropathy, moderate/advanced glenohumeral degenerative arthropathy with medial subcapital spurring, left mid lung subsegmental atelectasis/scarring, and tiny left upper lobe calcified granuloma. No other bony, articular, or soft tissue abnormalities.
== END 2019-12-03 22:45 | disposition home or self-care (01) ==
LOC: ED 21:48
DX: S46.912A Strain of unspecified muscle, fascia and tendon at shoulder and upper arm level, left arm, initial encounter (principal); W01.0XXA Fall on same level from slipping, tripping and stumbling without subsequent striking against object, initial encounter; Y93.9 Activity, unspecified; Z79.899 Other long term (current) drug therapy; I10 Essential (primary) hypertension
CPT/HCPCS: 73030; 96372; 99284; J1885

== ENCOUNTER 2020-09-25 14:58 | Emergency (ER) | payer MEDICARE ==
[2020-09-25 15:07] VITALS: PULSE 66
[2020-09-25] MEDS ORDERED: Sodium Chloride 0.9% 500 ML 500 ML IV ONE (15:31)
[2020-09-25] MEDS ORDERED: Sodium Chloride 0.9% 1000 ML 1,000 ML ONE (15:43)
[2020-09-25] MEDS ORDERED: Sodium Chloride 0.9% 1000 ML 1,000 ML IV STA (15:44)
[2020-09-25 16:05] LABS: Absolute Neutrophil Ct (ANC) 6.84 (1.4-6.9); BASOPHIL % 0.3 % (0.0-0.4); Basophil (Absolute #) 0.03 (0-0.4); Eosinophil % 3.3 % (0.00-5.0); Eosinophil (Absolute #) 0.33 (0-0.5); Hematocrit 41.4 % (35-47); Hemoglobin 12.9 gm/dl (12.0-16.0); Lymphocyte (Absolute #) 2.04 (1.0-4.6); Lymphocytes % 20.5 % (24.0-44.0); Mean Cell Volume 96.3 fl (78-100); Mean Corpuscular Hgb Concent. 31.2 g/dl (32-36); Mean Platelet Volume 10.7 fl (7.5-11.0); Monocyte (Absolute #) 0.69 (0.0-1.3); Monocytes % 6.9 % (0.0-12.0); Platelet Count 247 K/mm3 (150-450); Red Cell Distribution Width 13.9 % (11.5-14.0); White Blood Count 9.9 K/mm3 (4.0-10.5)
[2020-09-25 16:25] LABS: ALBUMIN 4.2 g/dL (3.5-5.0); ANION GAP 16.5 MEQ/L (5-15); BILIRUBIN,TOTAL 0.4 mg/dL (0.2-1.3); Calcium 9.3 mg/dL (8.4-10.2); Creatinine 1 1.34 mg/dL (0.52-1.04); EST GLOMERULAR FILTRATION RATE 40.6 ML/MIN; Potassium 3.9 mmol/L (3.5-5.1); Total Protein 7.8 g/dL (6.3-8.2)
--- NOTE | 2020-09-25 16:30 | XRAY ---
Indication: General weakness. Multiple contiguous axial images obtained through the head without contrast. Comparison: None Age-appropriate global atrophy and mild periventricular degenerative micro-ischemia bilaterally. No acute intracranial hemorrhage, abnormal extra-axial fluid collection, or mass effect. Fourth ventricle is midline without hydrocephalus. Bony calvarium intact. Visualized paranasal sinuses and mastoid air cells are clear. Impression: Nonacute senile brain.
--- NOTE | 2020-09-25 16:35 | XRAY ---
Indication: Weakness. Comparison: November 13, 2019. Portable apical lordotic chest unchanged again demonstrating minimal left midlung subsegmental atelectasis/scarring, tiny left apical calcified granuloma, and focal eventration right hemidiaphragm. Heart not enlarged. Bony thorax intact again with mild osteopenia and degenerative changes. Impression: Continued nonacute chest with chronic features.
--- NOTE | 2020-09-25 16:43 | ERPHSYRPT ---
- History of Present Illness Time Seen by Provider: 09/25/20 15:02 Source: patient, EMS Exam Limitations: no limitations Patient Subjective Stated Complaint: Pt states "I was just sitting there on facebook when I got really dizzy and broke out into a horrible sweat." Triage Nursing Assessment: Pt presented alert and oriented X 3, skin wpd pt able to speak in clear full sentences pt in no apparent respiratory distress. PT laying comfortably in bed. Physician History: 80 years old female with history of hypertension, anxiety presented to the ER via EMS with sudden onset dizziness, spinning sensation while she was watching a video over the phone prior to arrival, lasted for few minutes and improve prior to arrival in the ER. Patient reports she started to have feeling of warmth and sweating. Denies any chest pain palpitations or shortness of breath. Denies any feeling of near syncope/syncope. No numbness tingling or focal weakness. Denies any sick contact. No nausea or vomiting. Patient is almost back to her baseline now but has generalized weakness and fatigue feeling Timing/Duration: today, resolved prior to arrival, sudden Severity: moderate Character of Deficits: other Deficits: no difficulties Baseline/Normal Cognition: alert 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 Current Cognition: alert 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 Baseline Gait: walks w/o assistance Associated Symptoms: fatigue, nausea, weakness, No fever, No chills, No loss of consciousness, No vomiting, No insomnia, No muscle spasms, No numbness/tingling in legs/feet, No paresthesia, No ringing in ears, No seizures, No slurred speech, No trouble walking, No vision changes, No chest pain, No headache Allergies/Adverse Reactions: vancomycin Adverse Reaction (Severe, Verified 02/04/20 10:18) pt states causes kidney damage Home Medications: Aspirin EC 81 mg [Ecotrin 81 mg] 81 mg PO DAILY 11/04/18 [History] Furosemide 20 mg [Lasix 20 mg] 40 mg PO DAILY 06/07/19 [History] Alprazolam [Alprazolam ER] 0.5 mg PO BID PRN 07/16/19 [History] Atorvastatin Calcium 10 mg PO HS 07/16/19 [History] lisinopriL [Lisinopril] 10 mg PO DAILY 07/16/19 [History] Ferrous Gluconate 1 tab PO BID 12/03/19 [History] Metoprolol Tartrate 50 mg [Lopressor 50 MG] 50 mg PO DAILY 02/04/20 [History] Hx Tetanus, Diphtheria Vaccination/Date Given: Yes Hx Influenza Vaccination/Date Given: Yes Hx Pneumococcal Vaccination/Date Given: Yes Immunizations Up to Date: Yes Travel Risk - International Travel Have you traveled outside of the country in past 3 weeks: No - Coronavirus Screening Are you exhibiting any of the following symptoms?: No Close contact with a COVID-19 positive Pt in past 14-21 Days: No - Vaccine Status Have you recieved a Covid-19 vaccination: No (had one shot moderna) - Review of Systems Constitutional: Fatigue, Weakness Eyes: No Symptoms Ears, Nose, & Throat: No Symptoms Respiratory: No Symptoms Cardiac: No Symptoms Abdominal/Gastrointestinal: No Symptoms Genitourinary Symptoms: No Symptoms Musculoskeletal: No Symptoms Skin: No Symptoms Neurological: Dizziness Psychological: No Symptoms Endocrine: No Symptoms Hematologic/Lymphatic: No Symptoms Immunological/Allergic: No Symptoms - Past Medical History Pertinent Past Medical History: Yes Neurological History: No Pertinent History ENT History: Cataracts Cardiac History: Hypertension Respiratory History: No Pertinent History Endocrine Medical History: Adrenal Insufficiency, Other Musculoskeletal History: Osteoarthritis GI Medical History: Diverticulitis, Diverticulosis, GERD, Other History: No Pertinent History Psycho-Social History: No Pertinent History Female Reproductive Disorders: No Pertinent History Other Medical History: Colostomy, R shoulder RTC tear, B TKA. - Past Surgical History Past Surgical History: Yes Neuro Surgical History: No Pertinent History Cardiac: No Pertinent History Respiratory: No Pertinent History Gastrointestinal: Appendectomy, Cholecystectomy, Colon Resection Genitourinary: No Pertinent History Musculoskeletal: Joint Replacement, Orthopedic Surgery Female Surgical History: Hysterectomy Other Surgical History: brittney knees, brittney wrist,. Skin cancer removed from face 2006. colostomy - Social History Smoking Status: Former smoker Exposure to second hand smoke: Yes Alcohol Use: None Drug Use: none Patient Lives Alone: No Significant Family History: no pertinent family hx - Nursing Vital Signs Nursing Vital Signs: Initial Vital Signs Temperature 97.6 F 09/25/20 15:02 Pulse Rate 66 09/25/20 15:02 Respiratory Rate 22 09/25/20 15:02 Blood Pressure 145/83 09/25/20 15:02 O2 Sat by Pulse Oximetry 93 L 09/25/20 15:02 Pain Scale Pain Intensity 0 - [place] Coma Scale Best Eye Response (Gisela): (4) open spontaneously Best Verbal Response ([place]): (5) oriented Best Motor Response ([place]): (6) obeys commands [place] Total: 15 - Physical Exam General Appearance: no apparent distress, alert Eye Exam: bilateral eye: normal inspection, PERRL, EOMI Ears, Nose, Throat Exam: normal ENT inspection, TMs normal, pharynx normal, moist mucous membranes Neck Exam: normal inspection, non-tender, full range of motion Respiratory: normal breath sounds, lungs clear Cardiovascular: regular rate/rhythm, normal heart sounds Gastrointestinal: soft, normal bowel sounds, No tenderness Back Exam: normal inspection, normal range of motion Extremity Exam: normal inspection, normal range of motion Mental Status: alert, 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, 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 Exam: normal hearing, normal speech, PERRL Coordination/Gait: normal finger to nose, normal gait, normal cerebellar function, negative Romberg's sign Motor/Sensory: no motor deficit, no sensory deficit, no pronator drift, negative Babinski's sign DTR: bicep (R): 2+, bicep (L): 2+, knee (R): 2+, knee (L): 2+ Skin Exam: normal color SpO2 Interpretation: normal SpO2: 93 O2 Delivery: Room Air - Course EKG Interpreted by Me: RATE (70), Sinus Rhythm, LAFB, NORMAL INTERVALS, Non- specific ST Changes Ordered Tests: Active Orders 24 hr Category Date Time Status Orthostatic Vital Signs STAT Care 09/25/20 15:31 Completed CHEST 1 VIEW (PORTABLE) Stat Exams 09/25/20 15:30 Completed HEAD WITHOUT CONTRAST [CT] Stat Exams 09/25/20 15:18 Completed CBC W DIFF Stat Lab 09/25/20 15:30 Completed CMP Stat Lab 09/25/20 15:30 Completed Lactic Acid Stat Lab 09/25/20 15:38 Completed MAGNESIUM Stat Lab 09/25/20 15:30 Completed NT PRO BNP Stat Lab 09/25/20 15:30 Completed TROPONIN Q3H Lab 09/25/20 15:30 Completed UA W/RFX UR CULTURE Stat Lab 09/25/20 15:52 Completed Medication Summary Discontinued Medications Generic Name Dose Route Start Last Admin Trade Name Freq PRN Reason Stop Dose Admin Sodium Chloride 500 mls @ 500 mls/hr 09/25/20 15:31 09/25/20 15:46 Sodium Chloride 0.9% 500 Ml IV 09/25/20 16:30 Not Given .Q1H ONE Sodium Chloride Confirm 09/25/20 15:43 Sodium Chloride 0.9% 1000 Ml Administered 09/25/20 15:44 Dose 1,000 mls @ ud .ROUTE .STK-MED ONE Sodium Chloride 1,000 mls @ 500 mls/hr 09/25/20 15:44 09/25/20 15:46 Sodium Chloride 0.9% 1000 Ml IV 09/25/20 17:43 500 mls/hr .Q2H STA Administration Lab/Rad Data: Laboratory Result Diagrams 09/25/20 15:30 09/25/20 15:30 Laboratory Results 09/25/20 09/25/20 09/25/20 Range/Units 15:52 15:38 15:30 WBC (4.0-10.5) K/mm3 RBC (4.1-5.4) M/mm3 Hgb (12.0-16.0) gm/dl Hct (35-47) % MCV (78-100) fl MCH (26-32) pg MCHC (32-36) g/dl RDW (11.5-14.0) % Plt Count (150-450) K/mm3 MPV (7.5-11.0) fl Gran % (36.0-66.0) % Eos # (Auto) (0-0.5) Absolute Lymphs (auto) (1.0-4.6) Absolute Monos (auto) (0.0-1.3) Lymphocytes % (24.0-44.0) % Monocytes % (0.0-12.0) % Eosinophils % (0.00-5.0) % Basophils % (0.0-0.4) % Absolute Granulocytes (1.4-6.9) Basophils # (0-0.4) Sodium 139 (137-145) mmol/L Potassium 3.9 (3.5-5.1) mmol/L Chloride 101 (98-107) mmol/L Carbon Dioxide 25 (22-30) mmol/L Anion Gap 16.5 H (5-15) MEQ/L BUN 27 H (7-17) mg/dL Creatinine 1.34 H (0.52-1.04) mg/dL Estimated GFR 40.6 ML/MIN Glucose 152 H (74-106) mg/dL Lactic Acid 2.1 H (0.4-2.0) Calcium 9.3 (8.4-10.2) mg/dL Magnesium 2.0 (1.6-2.3) mg/dL Total Bilirubin 0.40 (0.2-1.3) mg/dL AST 24 (14-36) U/L ALT 15 (0-35) U/L Alkaline Phosphatase 71 (38-126) U/L Troponin I (0.000-0.034) ng/mL NT-Pro-B Natriuret Pep 254 (0-1800) pg/mL Serum Total Protein 7.8 (6.3-8.2) g/dL Albumin 4.2 (3.5-5.0) g/dL Urine Color STRAW (YELLOW) Urine Appearance CLEAR (CLEAR) Urine pH 5.0 (5-6) Ur Specific [place] 1.006 (1.005-1.025) Urine Protein NEGATIVE (Negative) Urine Ketones NEGATIVE (NEGATIVE) Urine Blood NEGATIVE (0-5) Jerad/ul Urine Nitrite NEGATIVE (NEGATIVE) Urine Bilirubin NEGATIVE (NEGATIVE) Urine Urobilinogen NEGATIVE (0-1) mg/dL Ur Leukocyte Esterase TRACE (NEGATIVE) Urine WBC (Auto) 0-2 (0-5) /HPF Urine RBC (Auto) NONE (0-2) /HPF U Hyaline Cast (Auto) 0-2 (0-2) /LPF U Epithel Cells (Auto) NONE (FEW) /HPF Urine Bacteria (Auto) NONE (NEGATIVE) /HPF Urine Mucus (Auto) SLIGHT (NEGATIVE) /HPF Urine Culture Reflexed NO (NO) Urine Glucose NEGATIVE (NEGATIVE) mg/dL 09/25/20 09/25/20 Range/Units 15:30 15:30 WBC 9.9 (4.0-10.5) K/mm3 RBC 4.30 (4.1-5.4) M/mm3 Hgb 12.9 (12.0-16.0) gm/dl Hct 41.4 (35-47) % MCV 96.3 (78-100) fl MCH 30.0 (26-32) pg MCHC 31.2 L (32-36) g/dl RDW 13.9 (11.5-14.0) % Plt Count 247 (150-450) K/mm3 MPV 10.7 (7.5-11.0) fl Gran % 69.0 H (36.0-66.0) % Eos # (Auto) 0.33 (0-0.5) Absolute Lymphs (auto) 2.04 (1.0-4.6) Absolute Monos (auto) 0.69 (0.0-1.3) Lymphocytes % 20.5 L (24.0-44.0) % Monocytes % 6.9 (0.0-12.0) % Eosinophils % 3.3 (0.00-5.0) % Basophils % 0.3 (0.0-0.4) % Absolute Granulocytes 6.84 (1.4-6.9) Basophils # 0.03 (0-0.4) Sodium (137-145) mmol/L Potassium (3.5-5.1) mmol/L Chloride (98-107) mmol/L Carbon Dioxide (22-30) mmol/L Anion Gap (5-15) MEQ/L BUN (7-17) mg/dL Creatinine (0.52-1.04) mg/dL Estimated GFR ML/MIN Glucose (74-106) mg/dL Lactic Acid (0.4-2.0) Calcium (8.4-10.2) mg/dL Magnesium (1.6-2.3) mg/dL Total Bilirubin (0.2-1.3) mg/dL AST (14-36) U/L ALT (0-35) U/L Alkaline Phosphatase (38-126) U/L Troponin I < 0.012 (0.000-0.034) ng/mL NT-Pro-B Natriuret Pep (0-1800) pg/mL Serum Total Protein (6.3-8.2) g/dL Albumin (3.5-5.0) g/dL Urine Color (YELLOW) Urine Appearance (CLEAR) Urine pH (5-6) Ur Specific [place] (1.005-1.025) Urine Protein (Negative) Urine Ketones (NEGATIVE) Urine Blood (0-5) Jerad/ul Urine Nitrite (NEGATIVE) Urine Bilirubin (NEGATIVE) Urine Urobilinogen (0-1) mg/dL Ur Leukocyte Esterase (NEGATIVE) Urine WBC (Auto) (0-5) /HPF Urine RBC (Auto) (0-2) /HPF U Hyaline Cast (Auto) (0-2) /LPF U Epithel Cells (Auto) (FEW) /HPF Urine Bacteria (Auto) (NEGATIVE) /HPF Urine Mucus (Auto) (NEGATIVE) /HPF Urine Culture Reflexed (NO) Urine Glucose (NEGATIVE) mg/dL - Progress Progress: improved Progress Note: 09/25/20 She is given fluids, on reevaluation feeling better. Nonfocal neuro exam essentially throughout stay in the ER. Dizziness also improved. Obtain CT head which is negative. Chest x-ray negative for any acute findings. Lab work grossly unremarkable. Recommended neuro consult as I do not have any other explanation for her dizziness. Does not want to stay and decided to leave AGAINST MEDICAL ADVICE. Patient and daughter were involved in the decision- making process and they understand the risk of stroke with permanent di sability/morbidity including and are adamant to leave. Report they will come back if has any worsening. Counseled pt/family regarding: lab results, diagnosis, rad results - Departure Departure Disposition: AMA Clinical Impression: Dizziness Condition: Stable Critical Care Time: No Referrals: FRANKI TOBAR [Primary Care Provider] -
[2020-09-25 17:02] LABS: Appearance CLEAR (CLEAR); Bilirubin NEGATIVE (NEGATIVE); Blood NEGATIVE Ery/ul (0-5); Glucose NEGATIVE (NEGATIVE); Hyaline Casts 0-2 /LPF (0-2); Ketones NEGATIVE (NEGATIVE); Leukocyte Esterase TRACE (NEGATIVE); Mucus SLIGHT /HPF (NEGATIVE); Nitrite NEGATIVE (NEGATIVE); Protein,Urine Dip NEGATIVE (Negative); Specific Gravity 1.006 (1.005-1.025); Urobilinogen NEGATIVE mg/dL (0-1); WBC 0-2 /HPF (0-5)
[2020-09-25 17:03] VITALS: BP 146/83
[2020-09-25 23:32] VITALS: O2SAT 93
== END 2020-09-25 17:29 | disposition left against medical advice (07) ==
LOC: ED 14:58
DX: R42 Dizziness and giddiness (principal); Z79.899 Other long term (current) drug therapy
CPT/HCPCS: 36000; 36415; 70450; 71045; 80053; 81001; 83605; 83735; 83880; 84484; 85025; 93005; 96360; 96361; 99284

== ENCOUNTER 2021-05-03 17:59 | Emergency (ER) | payer MEDICARE ==
--- NOTE | 2021-05-03 18:06 | ERPHSYRPT ---
- History of Present Illness Time Seen by Provider: 05/03/21 18:06 Source: patient Exam Limitations: clinical condition Physician History: This is a 80-year-old morbidly obese white female patient of Dr. Tobar who has hypertension, GERD and presents with 3-day history of worsening shortness of breath and cough. Patient denies chest pain. She has no abdominal pain. She is not having any nausea vomiting or diarrhea. She denies fevers. She has no known exposures to individuals with similar symptoms or with viral illness. Patient also has a history of elevated cholesterol and anxiety disorder. Timing/Duration: day(s) (3) Activities at Onset: activity Severity of Dyspnea-Max: moderate (Worsens) Severity of Dyspnea-Current: moderate Possible Cause: occasional episodes Modifying Factors: Improves With: activity (Worsens), coughing Associated Symptoms: cough Allergies/Adverse Reactions: vancomycin Adverse Reaction (Severe, Verified 05/03/21 18:07) pt states causes kidney damage Home Medications: Aspirin EC 81 mg [Ecotrin 81 mg] 81 mg PO DAILY 11/04/18 [History] Furosemide 20 mg [Lasix 20 mg] 40 mg PO DAILY 06/07/19 [History] ALPRAZolam [Alprazolam ER] 0.5 mg PO BID PRN 07/16/19 [History] Atorvastatin Calcium 10 mg PO HS 07/16/19 [History] lisinopriL [Lisinopril] 30 mg PO DAILY 07/16/19 [History] Metoprolol Tartrate 50 mg [Lopressor 50 MG] 50 mg PO DAILY 02/04/20 [History] Hx Tetanus, Diphtheria Vaccination/Date Given: Yes Hx Influenza Vaccination/Date Given: Yes Hx Pneumococcal Vaccination/Date Given: Yes Travel Risk - International Travel Have you traveled outside of the country in past 3 weeks: No - Coronavirus Screening Are you exhibiting any of the following symptoms?: Yes Symptoms: Cough: New Onset, Shortness of Breath Close contact with a COVID-19 positive Pt in past 14-21 Days: No - Vaccine Status Have you recieved a Covid-19 vaccination: No (had one shot moderna) - Review of Systems Constitutional: No Symptoms Eyes: No Symptoms Ears, Nose, & Throat: No Symptoms Respiratory: Cough, Dyspnea, Dyspnea on Exertion (ORELLANA) Cardiac: No Symptoms Abdominal/Gastrointestinal: No Symptoms Genitourinary Symptoms: No Symptoms Musculoskeletal: No Symptoms Skin: No Symptoms Neurological: No Symptoms Psychological: No Symptoms Endocrine: No Symptoms Hematologic/Lymphatic: No Symptoms Immunological/Allergic: No Symptoms All Other Systems: Reviewed and Negative - Past Medical History Pertinent Past Medical History: Yes Neurological History: No Pertinent History ENT History: Cataracts Cardiac History: Hypertension Respiratory History: No Pertinent History Endocrine Medical History: Adrenal Insufficiency, Other Musculoskeletal History: Osteoarthritis GI Medical History: Diverticulitis, Diverticulosis, GERD, Other History: No Pertinent History Psycho-Social History: No Pertinent History Female Reproductive Disorders: No Pertinent History Other Medical History: Colostomy, R shoulder RTC tear, B TKA. - Past Surgical History Past Surgical History: Yes Neuro Surgical History: No Pertinent History Cardiac: No Pertinent History Respiratory: No Pertinent History Gastrointestinal: Appendectomy, Cholecystectomy, Colon Resection Genitourinary: No Pertinent History Musculoskeletal: Joint Replacement, Orthopedic Surgery Female Surgical History: Hysterectomy Other Surgical History: brittney knees, brittney wrist,. Skin cancer removed from face 2005. colostomy - Social History Smoking Status: Former smoker Exposure to second hand smoke: Yes Alcohol Use: None Drug Use: none Patient Lives Alone: No Significant Family History: no pertinent family hx - Nursing Vital Signs Nursing Vital Signs: Initial Vital Signs Temperature 98.0 F 05/03/21 18:10 Pulse Rate 80 05/03/21 18:10 Respiratory Rate 18 05/03/21 18:10 O2 Sat by Pulse Oximetry 95 05/03/21 18:10 Pain Scale Pain Intensity 0 - Physical Exam General Appearance: mild distress, alert, anxiety, obese Eye Exam: PERRL/EOMI, eyes nml inspection Ears, Nose, Throat Exam: hearing grossly normal, normal ENT inspection, normal pharynx Neck Exam: normal inspection, non-tender, supple, full range of motion Respiratory Exam: rhonchi, No chest tenderness, No respiratory distress Cardiovascular/Chest Exam: normal heart sounds, regular rate/rhythm Abdominal/Gastrointestinal Exam: soft, normal bowel sounds, No tenderness Rectal Exam: not done Extremity Exam: non-tender, normal range of motion, normal inspection, no pedal edema, pelvis stable Neurologic Exam: alert, 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, cooperative, operator automated process II-XII nml as tested, normal mood/affect, sensation nml Skin Exam: normal color, warm, dry Lymphatic Exam: No adenopathy SpO2 Interpretation: normal O2 Delivery: Room Air - Course Nursing assessment & vital signs reviewed: Yes EKG Interpreted by Me: RATE (80), Sinus Rhythm, LAFB, NORMAL QRS, Other (Would compared to EKG dated 09/25/2020, there are new PVCs present. Today's EKG and the comparison EKG do not have any acute ischemic changes noted.) Ordered Tests: Active Orders 24 hr Category Date Time Status EKG-ER Only STAT Care 05/03/21 18:15 Active IV Insertion STAT Care 05/03/21 18:15 Active Pulse Oximetry (ED) STAT Care 05/03/21 18:15 Active CHEST 1 VIEW (PORTABLE) Stat Exams 05/03/21 18:15 Completed BLOOD CULTURE Stat Lab 05/03/21 18:43 Received CBC W DIFF Stat Lab 05/03/21 18:15 Completed CMP Stat Lab 05/03/21 18:18 Completed COVID AG-BINAX NOW RAPID TEST Stat Lab 05/03/21 20:10 Ordered D-DIMER QUANTITATIVE Stat Lab 05/03/21 18:18 Completed INFLUENZA A+B NARINDER Stat Lab 05/03/21 18:39 Completed Lactic Acid Stat Lab 05/03/21 18:42 Completed NT PRO BNP Stat Lab 05/03/21 18:18 Completed PROTIME WITH INR Stat Lab 05/03/21 18:18 Completed TROPONIN Q3H Lab 05/03/21 18:18 Completed TROPONIN Q3H Lab 05/03/21 21:15 Ordered TROPONIN Q3H Lab 05/04/21 00:15 Ordered TROPONIN Q3H Lab 05/04/21 03:15 Ordered TROPONIN Q3H Lab 05/04/21 06:15 Ordered Respiratory Therapy Assessment DAILY RT 05/03/21 18:35 Active Medication Summary Generic Name Dose Route Start Last Admin Trade Name Freq PRN Reason Stop Dose Admin Ceftriaxone Sodium/Dextrose 1 g in 50 mls @ 100 mls/hr 05/03/21 20:07 05/03/21 20:17 Rocephin 1 Gm-D5w 50 Ml Bag IV 05/03/21 20:36 100 mls/hr STAT STA 100 mls/hr Administration Discontinued Medications Generic Name Dose Route Start Last Admin Trade Name Freq PRN Reason Stop Dose Admin Hydrocodone Bitart/Acetaminophen 10 ml 05/03/21 18:21 05/03/21 18:30 Hydrocodone/Acetaminophen 5 Ml Udcup PO 05/03/21 18:22 10 ml STAT STA Administration Hydrocodone Bitart/Acetaminophen Confirm 05/03/21 18:28 Hydrocodone/Acetaminophen 5 Ml Udcup Administered 05/03/21 18:29 Dose 10 ml .ROUTE .STK-MED ONE Albuterol/Ipratropium Confirm 05/03/21 18:30 Ipratropium/Albuterol Sulfate 3 Ml Ampul.Neb Administered 05/03/21 18:31 Dose 3 ml IH .STK-MED ONE Albuterol/Ipratropium 3 ml 05/03/21 18:34 05/03/21 18:32 Ipratropium/Albuterol Sulfate 3 Ml Ampul.Neb IH 05/03/21 18:35 3 ml STAT ONE Administration Methylprednisolone Sodium 0 mg 05/03/21 18:21 05/03/21 18:30 Succinate 125 mg/ Sterile IV 05/03/21 18:22 125 mg Water 2 ml STAT ONE Administration Enoxaparin Sodium 120 mg 05/03/21 20:10 05/03/21 20:17 Enoxaparin Sodium 120 Mg/0.8 Ml Syringe SQ 05/03/21 20:11 120 mg STAT STA Administration Enoxaparin Sodium Confirm 05/03/21 20:15 Enoxaparin Sodium 120 Mg/0.8 Ml Syringe Administered 05/03/21 20:16 Dose 120 mg SQ .STK-MED ONE Ceftriaxone Sodium/Dextrose Confirm 05/03/21 20:15 Rocephin 1 Gm-D5w 50 Ml Bag Administered 05/03/21 20:16 Dose 1 g in 50 mls @ ud IV .STK-MED ONE Methylprednisolone Sodium Succinate Confirm 05/03/21 18:28 Methylprednis Sod Succ 125 Mg/2 Ml Vial Administered 05/03/21 18:29 Dose 125 mg .ROUTE .STK-MED ONE Sterile Water Confirm 05/03/21 18:27 Water For Injection,Sterile 10 Ml Vial Administered 05/03/21 18:28 Dose 10 ml IJ .STK-MED ONE Lab/Rad Data: Laboratory Result Diagrams 05/03/21 18:15 05/03/21 18:18 Laboratory Results 03/18/22 03/18/22 03/18/22 Range/Units 18:42 18:39 18:18 WBC (4.0-10.5) K/mm3 RBC (4.1-5.4) M/mm3 Hgb (12.0-16.0) gm/dl Hct (35-47) % MCV (78-100) fl MCH (26-32) pg MCHC (32-36) g/dl RDW (11.5-14.0) % Plt Count (150-450) K/mm3 MPV (7.5-11.0) fl Gran % (36.0-66.0) % Eos # (Auto) (0-0.5) Absolute Lymphs (auto) (1.0-4.6) Absolute Monos (auto) (0.0-1.3) Lymphocytes % (24.0-44.0) % Monocytes % (0.0-12.0) % Eosinophils % (0.00-5.0) % Basophils % (0.0-0.4) % Absolute Granulocytes (1.4-6.9) Basophils # (0-0.4) PT 13.3 H (9.4-12.5) SECONDS INR 1.13 (0.8-3.0) D-Dimer 729 H* (215-500) ng/mL Sodium (137-145) mmol/L Potassium (3.5-5.1) mmol/L Chloride (98-107) mmol/L Carbon Dioxide (22-30) mmol/L Anion Gap (5-15) MEQ/L BUN (7-17) mg/dL Creatinine (0.52-1.04) mg/dL Estimated GFR ML/MIN Glucose (74-106) mg/dL Lactic Acid 2.4 H (0.4-2.0) Calcium (8.4-10.2) mg/dL Total Bilirubin (0.2-1.3) mg/dL AST (14-36) U/L ALT (0-35) U/L Alkaline Phosphatase (38-126) U/L Troponin I (0.000-0.034) ng/mL NT-Pro-B Natriuret Pep (0-1800) pg/mL Serum Total Protein (6.3-8.2) g/dL Albumin (3.5-5.0) g/dL Influenza Type A Ag NEGATIVE (NEGATIVE) Influenza Type B Ag NEGATIVE (NEGATIVE) 05/03/21 05/03/21 05/03/21 Range/Units 18:18 18:18 18:15 WBC 10.9 H (4.0-10.5) K/mm3 RBC 4.30 (4.1-5.4) M/mm3 Hgb 13.3 (12.0-16.0) gm/dl Hct 41.0 (35-47) % MCV 95.3 (78-100) fl MCH 30.9 (26-32) pg MCHC 32.4 (32-36) g/dl RDW 13.9 (11.5-14.0) % Plt Count 237 (150-450) K/mm3 MPV 10.7 (7.5-11.0) fl Gran % 71.7 H (36.0-66.0) % Eos # (Auto) 0.81 H (0-0.5) Absolute Lymphs (auto) 1.23 (1.0-4.6) Absolute Monos (auto) 0.99 (0.0-1.3) Lymphocytes % 11.3 L (24.0-44.0) % Monocytes % 9.1 (0.0-12.0) % Eosinophils % 7.4 H (0.00-5.0) % Basophils % 0.5 (0.0-0.4) % Absolute Granulocytes 7.84 H (1.4-6.9) Basophils # 0.06 (0-0.4) PT (9.4-12.5) SECONDS INR (0.8-3.0) D-Dimer (215-500) ng/mL Sodium 139 (137-145) mmol/L Potassium 4.2 (3.5-5.1) mmol/L Chloride 104 (98-107) mmol/L Carbon Dioxide 25 (22-30) mmol/L Anion Gap 14.8 (5-15) MEQ/L BUN 17 (7-17) mg/dL Creatinine 1.22 H (0.52-1.04) mg/dL Estimated GFR 45.2 ML/MIN Glucose 147 H (74-106) mg/dL Lactic Acid (0.4-2.0) Calcium 9.0 (8.4-10.2) mg/dL Total Bilirubin 0.70 (0.2-1.3) mg/dL AST 22 (14-36) U/L ALT 12 (0-35) U/L Alkaline Phosphatase 68 (38-126) U/L Troponin I < 0.012 (0.000-0.034) ng/mL NT-Pro-B Natriuret Pep 1300 (0-1800) pg/mL Serum Total Protein 7.0 (6.3-8.2) g/dL Albumin 4.1 (3.5-5.0) g/dL Influenza Type A Ag (NEGATIVE) Influenza Type B Ag (NEGATIVE) - Progress Progress: improved, re-examined Air Movement: good Progress Note: 05/03/21 19:24 Chest x-ray shows no acute cardiopulmonary process. 05/03/21 20:05 Medical decision making: This patient has a normal room air oxygen level. She feels short of breath and she does have a cough. There is no evidence of any pneumonia on chest x-ray. The chest x-ray was also read by the radiologist. She has a mildly elevated D-dimer. We will place her on 5 mg orally twice a day of Eliquis per Dr. Tobar instructions. I will place her on steroids and provide her with hydrocodone elixir for her cough. Patient's BNP is in the normal range as is her troponin level. There is no acute ischemic changes on her EKG. We will check a Covid test prior to discharge. Her influenza AMB are negative. Dr. Tobar also wants me to place her on oral antibiotics as an outpatient. We will use azithromycin. We will make arrangements for an outpatient V/Q study. Blood Culture(s) Obtained: Yes Discussed with : Indy Counseled pt/family regarding: lab results, need for follow-up, rad results - Departure Departure Disposition: Home Clinical Impression: Shortness of breath, Cough, Elevated d-dimer Condition: Stable Critical Care Time: No Referrals: FRANKI TOBAR MD [Primary Care Provider] - Follow up/PCP as directed Additional Instructions: Follow-up at the [facility] radiology department on 05/06/2021 as scheduled time to undergo a ventilation perfusion scan to evaluate for a pulmonary embolus. Follow up with Dr. Tobar at his office for the test results. Continue your medications as prescribed. Prescriptions: Hydrocodone/Acetaminophen [Hydrocodone-Acetamn 7.5-325/15] 10 ml PO Q8H PRN PRN #120 ml MDD 30 ml PRN Reason: Cough Prednisone 10 mg [Deltasone 10 mg] 10 mg PO TID #12 tablet Apixaban [Eliquis 5 mg Tablet] 5 mg PO BID #8 tablet Azithromycin 250 mg [Zithromax 250 MG TABLET] 250 mg PO ZPACK #6 tablet
[2021-05-03] MEDS ORDERED: solu-MEDROL 125 MG, Sterile H2O 10 ml 2 ML IV ONE ×2 (18:21)
[2021-05-03] MEDS ORDERED: HYDROCODONE-ACETAMIN 2.5-108/5 ML SOLUTION PO STA ×2 (18:21→20:27)
[2021-05-03] MEDS ORDERED: Sterile H2O 10 ml IJ ONE (18:27)
[2021-05-03] MEDS ORDERED: HYDROCODONE-ACETAMIN 2.5-108/5 ML SOLUTION ONE ×2 (18:28→20:29)
[2021-05-03] MEDS ORDERED: solu-MEDROL ONE (18:28)
[2021-05-03] MEDS ORDERED: DUONEB 0.5-3 MG/3 ml Neb IH ONE ×2 (18:30→18:34)
[2021-05-03 18:35] LABS: Absolute Neutrophil Ct (ANC) 7.84 (1.4-6.9); Basophil (Absolute #) 0.06 (0-0.4); Eosinophil % 7.4 % (0.00-5.0); Eosinophil (Absolute #) 0.81 (0-0.5); Hemoglobin 13.3 gm/dl (12.0-16.0); Lymphocyte (Absolute #) 1.23 (1.0-4.6); Lymphocytes % 11.3 % (24.0-44.0); Mean Cell Volume 95.3 fl (78-100); Mean Corpuscular Hemoglobin 30.9 pg (26-32); Mean Corpuscular Hgb Concent. 32.4 g/dl (32-36); Mean Platelet Volume 10.7 fl (7.5-11.0); Monocyte (Absolute #) 0.99 (0.0-1.3); Monocytes % 9.1 % (0.0-12.0); Neutrophil % 71.7 % (36.0-66.0); Platelet Count 237 K/mm3 (150-450); Red Cell Distribution Width 13.9 % (11.5-14.0); White Blood Count 10.9 K/mm3 (4.0-10.5)
[2021-05-03 18:37] LABS: INR 1.13 (0.8-3.0); PROTIME 13.3 SECONDS (9.4-12.5)
[2021-05-03 18:50] LABS: ALBUMIN 4.1 g/dL (3.5-5.0); ANION GAP 14.8 MEQ/L (5-15); BILIRUBIN,TOTAL 0.7 mg/dL (0.2-1.3); Creatinine 1 1.22 mg/dL (0.52-1.04); EST GLOMERULAR FILTRATION RATE 45.2 ML/MIN; Potassium 4.2 mmol/L (3.5-5.1)
--- NOTE | 2021-05-03 19:17 | XRAY ---
Indication: Short of breath. Comparison: September 25, 2020. Portable apical lordotic chest unchanged again demonstrating left mid lung subsegmental atelectasis/scarring, tiny left apical calcified granuloma, and focal eventration right hemidiaphragm. Heart not enlarged. Bony thorax intact again with mild osteopenia and degenerative changes. Impression: Continued nonacute chest with chronic features.
[2021-05-03 19:47] LABS: INFLUENZA A NEGATIVE (NEGATIVE); INFLUENZA B NEGATIVE (NEGATIVE)
[2021-05-03 20:05] VITALS: BP 155/77; PULSE 78; O2SAT 96
[2021-05-03] MEDS ORDERED: ROCEPHIN 1 Gm-D5w 50 ml Bag** 1 G/50 ML IVPB IV STA (20:07)
[2021-05-03] MEDS ORDERED: ENOXAPARIN SODIUM SQ STA (20:10)
[2021-05-03] MEDS ORDERED: ROCEPHIN 1 Gm-D5w 50 ml Bag** 1 G/50 ML IVPB IV ONE (20:15)
[2021-05-03] MEDS ORDERED: ENOXAPARIN SODIUM SQ ONE (20:15)
[2021-05-03 20:52] LABS: COVID AG -BINAX NOW RAPID TEST NEGATIVE (NEGATIVE)
== END 2021-05-03 21:04 | disposition home or self-care (01) ==
LOC: ED 17:59
DX: R05.1 Acute cough (principal); R06.02 Shortness of breath; R79.1 Abnormal coagulation profile; I10 Essential (primary) hypertension; K21.9 Gastro-esophageal reflux disease without esophagitis; Z79.891 Long term (current) use of opiate analgesic; Z79.52 Long term (current) use of systemic steroids; Z79.01 Long term (current) use of anticoagulants; Z79.899 Other long term (current) drug therapy
CPT/HCPCS: 36000; 36415; 71045; 80053; 83605; 83880; 84484; 85025; 85379; 85610; 87040; 87400; 93005; 94640; 94760; 96365; 96372; 96374; 99000; 99284; J0696; J1650; J2930; A9270-GY

== ENCOUNTER 2021-09-22 21:01 | Emergency (ER) | payer MEDICARE ==
[2021-09-22 21:35] LABS: Absolute Neutrophil Ct (ANC) 12.74 x10^3/uL (1.4-6.9); Basophil (Absolute #) 0.07 x10^3/uL (0-0.4); Eosinophil % 1.5 % (0.00-5.0); Eosinophil (Absolute #) 0.23 x10^3/uL (0-0.5); Hematocrit 27.4 % (35-47); Hemoglobin 8.5 g/dL (12.0-16.0); Lymphocyte (Absolute #) 0.81 x10^3/uL (1.0-4.6); Lymphocytes % 5.3 % (24.0-44.0); Mean Cell Volume 100.4 fL (78-100); Mean Corpuscular Hemoglobin 31.1 pg (26-32); Mean Platelet Volume 10.9 fL (7.5-11.0); Monocyte (Absolute #) 1.37 x10^3/uL (0.0-1.3); Monocytes % 8.9 % (0.0-12.0); Neutrophil % 83.2 % (36.0-66.0); Platelet Count 260 x10^3/uL (150-450); Red Blood Count 2.73 x10^6/uL (4.1-5.4); Red Cell Distribution Width 13.8 % (11.5-14.0); White Blood Count 15.3 x10^3/uL (4.0-10.5)
[2021-09-22] MEDS ORDERED: Sodium Chloride 0.9% 500 ML 500 ML IV ONE (21:41)
[2021-09-22] MEDS: Sodium Chloride 0.9% 500 ML 500 ML IV ONE (21:42)
[2021-09-22 21:51] LABS: ALBUMIN 2.6 g/dL (3.5-5.0); ANION GAP 16.1 MEQ/L (5-15); BILIRUBIN,TOTAL 0.2 mg/dL (0.2-1.3); Calcium 8.1 mg/dL (8.4-10.2); Creatinine 1 7.16 mg/dL (0.52-1.04); EST GLOMERULAR FILTRATION RATE 5.8 ML/MIN; Potassium 3.5 mmol/L (3.5-5.1); Total Protein 5.4 g/dL (6.3-8.2)
[2021-09-22 22:22] LABS: Appearance TURBID (CLEAR); Bilirubin NEGATIVE (NEGATIVE); Glucose NEGATIVE (NEGATIVE); Ketones TRACE (NEGATIVE); Nitrite POSITIVE (NEGATIVE); Ph 6.5 (5-6); Protein,Urine Dip >=300 (Negative); RBC LARGE Ery/ul (0-5); Specific Gravity 1.025 (1.005-1.025); Urobilinogen 0.2 mg/dL (0-1)
[2021-09-22 22:23] LABS: Dipstick done @ ? MAIN LAB
[2021-09-22 22:29] LABS: Bacteria MANY /HPF (NEGATIVE); Epithelial Cells FEW /HPF (FEW); Mucus MODERATE /HPF (NEGATIVE); RBC 51-100 /HPF (0-2); WBC >100 /HPF (0-5)
[2021-09-22 22:30] LABS: Urine Cultured Indicated? YES
--- NOTE | 2021-09-22 22:38 | ERPHSYRPT ---
- History of Present Illness Time Seen by Provider: 09/22/21 21:16 Source: patient, EMS Exam Limitations: no limitations Patient Subjective Stated Complaint: pt arrived by EMS stating she had ostomy reversed and hernia surgery done on september 04. states she has no pain but generally does not feel well. pt states she has no energy. Triage Nursing Assessment: pt is resting in bed at this time, states she has no pain and closes eyes stating she feels tired. Physician History: 81 years old morbidly obese female resident of [facility] with history of congestive heart failure, chronic anemia, ESRD on dialysis started recently, hypertension, anxiety, colostomy reversal on September 12 currently having ZOIE drain in place presented in the ER with generalized weakness fatigue tiredness and lack of appetite and decreased oral intake. This has been going on for the last couple of days and gradually worsening and does have decreased urine output per patient. She does have a Sapp catheter placed in for urine output records. Does have abdominal pain which is off and on there since surgery. No fever or chills reported. Has loose stool since surgery which is not any worse than usual. Denies any sick contact. Timing/Duration: day(s) (2), gradual onset, worse Severity: moderate Associated Symptoms: abdominal pain, loss of appetite, malaise, weakness, No shortness of breath, No chest pain, No fever, No syncope Allergies/Adverse Reactions: vancomycin Adverse Reaction (Severe, Verified 09/22/21 21:16) pt states causes kidney damage Home Medications: Aspirin EC 81 mg [Ecotrin 81 mg] 81 mg PO DAILY 11/04/18 [History] Furosemide 20 mg [Lasix 20 mg] 40 mg PO DAILY 06/07/19 [History] ALPRAZolam [Alprazolam ER] 0.5 mg PO BID PRN 07/16/19 [History] Atorvastatin Calcium 10 mg PO HS 07/16/19 [History] lisinopriL [Lisinopril] 30 mg PO DAILY 07/16/19 [History] Metoprolol Tartrate 50 mg [Lopressor 50 MG] 50 mg PO DAILY 02/04/20 [History] Hx Tetanus, Diphtheria Vaccination/Date Given: Yes Hx Influenza Vaccination/Date Given: Yes Hx Pneumococcal Vaccination/Date Given: Yes Travel Risk - International Travel Have you traveled outside of the country in past 3 weeks: No - Coronavirus Screening Are you exhibiting any of the following symptoms?: No Close contact with a COVID-19 positive Pt in past 14-21 Days: No - Vaccine Status Have you recieved a Covid-19 vaccination: No Aquatic Scientist: Moderna - Vaccination Dates Date of 2cond Vaccination (if applicable): unknown - Review of Systems Constitutional: Fatigue, Weakness Eyes: No Symptoms Ears, Nose, & Throat: No Symptoms Respiratory: No Symptoms Cardiac: No Symptoms Abdominal/Gastrointestinal: Abdominal Pain Genitourinary Symptoms: No Symptoms Musculoskeletal: Myalgias Skin: No Symptoms Neurological: No Symptoms Endocrine: No Symptoms Hematologic/Lymphatic: No Symptoms Immunological/Allergic: No Symptoms - Past Medical History Pertinent Past Medical History: Yes Neurological History: No Pertinent History ENT History: Cataracts Cardiac History: Hypertension Respiratory History: No Pertinent History Endocrine Medical History: Adrenal Insufficiency, Other Musculoskeletal History: Osteoarthritis GI Medical History: Diverticulitis, Diverticulosis, GERD, Other History: No Pertinent History Psycho-Social History: No Pertinent History Female Reproductive Disorders: No Pertinent History Other Medical History: Colostomy, R shoulder RTC tear, B TKA. - Past Surgical History Past Surgical History: Yes Neuro Surgical History: No Pertinent History Cardiac: No Pertinent History Respiratory: No Pertinent History Gastrointestinal: Appendectomy, Cholecystectomy, Colon Resection Genitourinary: No Pertinent History Musculoskeletal: Joint Replacement, Orthopedic Surgery Female Surgical History: Hysterectomy Other Surgical History: brittney knees, brittney wrist,. Skin cancer removed from face 2005. colostomy - Social History Smoking Status: Former smoker Exposure to second hand smoke: Yes Alcohol Use: None Drug Use: none Patient Lives Alone: No Significant Family History: no pertinent family hx - Nursing Vital Signs Nursing Vital Signs: Initial Vital Signs Temperature 97.0 F 09/22/21 21:08 Pulse Rate 95 H 09/22/21 21:08 Respiratory Rate 18 09/22/21 21:08 Blood Pressure 132/77 09/22/21 21:08 O2 Sat by Pulse Oximetry 95 09/22/21 21:08 Pain Scale Pain Intensity 0 - Physical Exam General Appearance: no apparent distress, alert Eye Exam: PERRL/EOMI Ears, Nose, Throat Exam: normal ENT inspection, TMs normal, pharynx normal, dry mucous membranes Neck Exam: normal inspection, supple, full range of motion Respiratory Exam: normal breath sounds, lungs clear, other (Tunnel catheter well in place on right side) Cardiovascular Exam: regular rate/rhythm, normal heart sounds Gastrointestinal/Abdomen Exam: soft, normal bowel sounds, tenderness (Appropriate tenderness around incision area. No wound dehiscence.), other (ZOIE drain well in place), No guarding Back Exam: normal inspection, normal range of motion Extremity Exam: normal inspection, normal range of motion Neurologic Exam: alert, 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, cooperative, deodorizer operator II-XII nml as tested, sensation nml, No motor deficits Skin Exam: normal color SpO2 Interpretation: normal SpO2: 95 O2 Delivery: Room Air - Course EKG Interpreted by Me: RATE ([id number]), Sinus Rhythm, Left [place] Deviation, NORMAL INTERVALS, Non-specific ST Changes Ordered Tests: Active Orders 24 hr Category Date Time Status EKG-ER Only STAT Care 09/22/21 21:16 Active IV Insertion STAT Care 09/22/21 21:16 Active ABDOMEN AND PELVIS W/0 CONTRAS [CT] Stat Exams 09/22/21 21:17 Taken CHEST WITHOUT CONTRAST [CT] Stat Exams 09/22/21 21:17 Taken BLOOD CULTURE Stat Lab 09/22/21 21:32 Ordered CBC W DIFF Stat Lab 09/22/21 21:32 Completed CMP Stat Lab 09/22/21 21:32 Completed CULTURE,URINE Stat Lab 09/22/21 22:20 Received LIPASE Stat Lab 09/22/21 21:32 Completed Lactic Acid Stat Lab 09/22/21 21:16 Completed TROPONIN Q4H Lab 09/22/21 21:44 Completed TROPONIN Q4H Lab 09/23/21 01:30 Ordered TROPONIN Q4H Lab 09/23/21 05:30 Ordered UA W/RFX CULTURE Stat Lab 09/22/21 22:20 Completed Medication Summary Discontinued Medications Generic Name Dose Route Start Last Admin Trade Name Freq PRN Reason Stop Dose Admin Sodium Chloride 500 mls @ 500 mls/hr 09/22/21 21:18 09/22/21 21:42 Sodium Chloride 0.9% 500 Ml IV 09/22/21 22:17 500 mls/hr .Q1H ONE Administration Sodium Chloride Confirm 09/22/21 21:41 Sodium Chloride 0.9% 500 Ml Administered 09/22/21 21:42 Dose 500 mls @ ud IV .STK-MED ONE Ceftriaxone Sodium/Dextrose 1 g in 50 mls @ 100 mls/hr 09/22/21 22:56 09/22/21 22:59 Rocephin 1 Gm-D5w 50 Ml Bag IV 09/22/21 23:25 100 ml/hr STAT STA 100 mls/hr Administration Ceftriaxone Sodium/Dextrose Confirm 09/22/21 22:59 Rocephin 1 Gm-D5w 50 Ml Bag Administered 09/22/21 23:00 Dose 1 g in 50 mls @ ud IV .[facility]-MED ONE Lab/Rad Data: Laboratory Result Diagrams 09/22/21 21:32 09/22/21 21:32 Laboratory Results 09/22/21 09/22/21 09/22/21 Range/Units 22:20 21:44 21:32 WBC (4.0-10.5) x10^3/uL RBC (4.1-5.4) x10^6/uL Hgb (12.0-16.0) g/dL Hct (35-47) % MCV (78-100) fL MCH (26-32) pg MCHC (32-36) g/dL RDW (11.5-14.0) % Plt Count (150-450) x10^3/uL MPV (7.5-11.0) fL Gran % (36.0-66.0) % Immature Gran % (Auto) (0.00-0.4) % Nucleat RBC Rel Count (0.00-0.1) % Eos # (Auto) (0-0.5) x10^3/uL Immature Gran # (Auto) (0.00-0.03) x10^3u/L Absolute Lymphs (auto) (1.0-4.6) x10^3/uL Absolute Monos (auto) (0.0-1.3) x10^3/uL Absolute Nucleated RBC (0.00-0.01) x10^3u/L Lymphocytes % (24.0-44.0) % Monocytes % (0.0-12.0) % Eosinophils % (0.00-5.0) % Basophils % (0.0-0.4) % Absolute Granulocytes (1.4-6.9) x10^3/uL Basophils # (0-0.4) x10^3/uL Sodium 132 L (137-145) mmol/L Potassium 3.5 (3.5-5.1) mmol/L Chloride 94 L (98-107) mmol/L Carbon Dioxide 26 (22-30) mmol/L Anion Gap 16.1 H (5-15) MEQ/L BUN 28 H (7-17) mg/dL Creatinine 7.16 H (0.52-1.04) mg/dL Estimated GFR 5.8 ML/MIN Glucose 143 H (74-106) mg/dL Lactic Acid (0.4-2.0) Calcium 8.1 L (8.4-10.2) mg/dL Total Bilirubin 0.20 (0.2-1.3) mg/dL AST 20 (14-36) U/L ALT 9 (0-35) U/L Alkaline Phosphatase 68 (38-126) U/L Troponin I 0.025 (0.000-0.034) ng/mL Serum Total Protein 5.4 L (6.3-8.2) g/dL Albumin 2.6 L (3.5-5.0) g/dL Lipase 133 (23-300) U/L Urinalys Dipstick Clnc MAIN LAB Urine Color YELLOW (YELLOW) Urine Appearance TURBID (CLEAR) Urine pH 6.5 (5-6) Ur Specific [place] 1.025 (1.005-1.025) POC Urine Protein Conf >=300 (Negative) Urine Ketones TRACE (NEGATIVE) Urine Nitrite POSITIVE (NEGATIVE) Urine Bilirubin NEGATIVE (NEGATIVE) Urine Urobilinogen 0.2 (0-1) mg/dL Urine Leukocytes LARGE (NEGATIVE) Urine WBC (Auto) >100 (0-5) /HPF Urine RBC (Auto) 51-100 (0-2) /HPF U Epithel Cells (Auto) FEW (FEW) /HPF Urine Bacteria (Auto) MANY (NEGATIVE) /HPF Urine RBC LARGE (0-5) Jerad/ul Urine Mucus (Auto) MODERATE (NEGATIVE) /HPF Ur Culture Indicated? YES Urine Glucose NEGATIVE (NEGATIVE) mg/dL 09/22/21 09/22/21 Range/Units 21:32 21:16 WBC 15.3 H (4.0-10.5) x10^3/uL RBC 2.73 L (4.1-5.4) x10^6/uL Hgb 8.5 L (12.0-16.0) g/dL Hct 27.4 L (35-47) % MCV 100.4 H (78-100) fL MCH 31.1 (26-32) pg MCHC 31.0 L (32-36) g/dL RDW 13.8 (11.5-14.0) % Plt Count 260 (150-450) x10^3/uL MPV 10.9 (7.5-11.0) fL Gran % 83.2 H (36.0-66.0) % Immature Gran % (Auto) 0.6 H (0.00-0.4) % Nucleat RBC Rel Count 0.0 (0.00-0.1) % Eos # (Auto) 0.23 (0-0.5) x10^3/uL Immature Gran # (Auto) 0.09 H (0.00-0.03) x10^3u/L Absolute Lymphs (auto) 0.81 L (1.0-4.6) x10^3/uL Absolute Monos (auto) 1.37 H (0.0-1.3) x10^3/uL Absolute Nucleated RBC 0.00 (0.00-0.01) x10^3u/L Lymphocytes % 5.3 L (24.0-44.0) % Monocytes % 8.9 (0.0-12.0) % Eosinophils % 1.5 (0.00-5.0) % Basophils % 0.5 (0.0-0.4) % Absolute Granulocytes 12.74 H (1.4-6.9) x10^3/uL Basophils # 0.07 (0-0.4) x10^3/uL Sodium (137-145) mmol/L Potassium (3.5-5.1) mmol/L Chloride (98-107) mmol/L Carbon Dioxide (22-30) mmol/L Anion Gap (5-15) MEQ/L BUN (7-17) mg/dL Creatinine (0.52-1.04) mg/dL Estimated GFR ML/MIN Glucose (74-106) mg/dL Lactic Acid 1.1 (0.4-2.0) Calcium (8.4-10.2) mg/dL Total Bilirubin (0.2-1.3) mg/dL AST (14-36) U/L ALT (0-35) U/L Alkaline Phosphatase (38-126) U/L Troponin I (0.000-0.034) ng/mL Serum Total Protein (6.3-8.2) g/dL Albumin (3.5-5.0) g/dL Lipase (23-300) U/L Urinalys Dipstick Clnc Urine Color (YELLOW) Urine Appearance (CLEAR) Urine pH (5-6) Ur Specific [place] (1.005-1.025) POC Urine Protein Conf (Negative) Urine Ketones (NEGATIVE) Urine Nitrite (NEGATIVE) Urine Bilirubin (NEGATIVE) Urine Urobilinogen (0-1) mg/dL Urine Leukocytes (NEGATIVE) Urine WBC (Auto) (0-5) /HPF Urine RBC (Auto) (0-2) /HPF U Epithel Cells (Auto) (FEW) /HPF Urine Bacteria (Auto) (NEGATIVE) /HPF Urine RBC (0-5) Jerad/ul Urine Mucus (Auto) (NEGATIVE) /HPF Ur Culture Indicated? Urine Glucose (NEGATIVE) mg/dL - Progress Progress: improved, re-examined Progress Note: 09/22/21 23:10 81 years old is evaluated for generalized weakness with decreased oral intake. Not confused or altered at all, no focal weakness. Afebrile in the ER. Not tachypneic or tachycardic. Not in any distress. She is given fluids carefully because of her ESRD. Feeling better on reevaluation. Work-up showed white co unt of 15 and a hemoglobin of 8.5. Patient has chronic anemia and I have reviewed records from [facility] and she was low hemoglobin on discharge from there. She has a normal lactate. Urinalysis consistent with UTI and given a dose of Rocephin in here. Patient has a CT abdomen pelvis and chest done which grossly unremarkable for any acute findings. Recent surgery anastomosis well-healing with no acute pathology. I believe patient UTI is probably because of her generalized weakness, discussed with daughter in detail about antibiotics and she is okay with taking [facility]. We do not have dialysis in this hospital and she does not want her to be taken to [facility] because of bad experience in the past. She would be placed on Omnicef and will follow-up with primary care and nephrology for possible removal of Sapp catheter. Counseled pt/family regarding: lab results, diagnosis, need for follow-up, rad results - Departure Departure Disposition: Home Clinical Impression: Generalized weakness, Acute UTI, ESRD (end stage renal disease) on dialysis, Anemia Condition: Stable Critical Care Time: No Referrals: FRANKI TOBAR MD [Primary Care Provider] - Follow up/PCP as directed (12 days for reevaluation) Instructions: Fatigue (DC), Urinary Tract Infection, Adult (DC) Additional Instructions: Keep yourself well-hydrated as per recommendations from nephrology. Continue with antibiotics 300 mg after each dialysis Thursday/Thursday/Thursday and on every Thursday total of 4 doses in a week. Continue antibiotics for 2 weeks or as per nephrology recommendations. Return to ER for worsening of weakness, develop fever chills, abdominal pain, nausea vomiting/difficulty breathing etc. Prescriptions: Cefdinir [Omnicef 300 mg] 300 mg PO 3XW 14 Days #8 cap
[2021-09-22] MEDS ORDERED: ROCEPHIN 1 Gm-D5w 50 ml Bag** 1 G/50 ML IVPB IV ONE (22:59)
[2021-09-22] MEDS: ROCEPHIN 1 Gm-D5w 50 ml Bag** 1 G/50 ML IVPB IV STA (22:59)
[2021-09-22 23:10] VITALS: BP 138/67; PULSE 87
[2021-09-22 23:16] VITALS: O2SAT 95
[2021-09-23 01:57] LABS: 027 TOX PROD PRESUMPTIVE POSITIVE (NEGATIVE)
[2021-09-23 02:00] LABS: TOXIGENIC C. DIFF ORG POSITIVE (NEGATIVE)
--- NOTE | 2021-09-23 08:47 | XRAY ---
Indication: Weakness, lethargy, chills, and abdominal pain. Multiple contiguous axial images obtained through the chest without contrast. Comparison: None Study is slightly degraded by respiration artifact throughout. Lungs demonstrates scattered bilateral subsegmental atelectasis/scarring greatest in both lung bases. Tiny left upper lobe calcified granuloma. Posterior right lower lobe demonstrates 5 mm noncalcified subpleural nodule, probably granulomatous. Incidental right hemidiaphragm elevation. No suspicious pulmonary mass, infiltrate, consolidation, effusion, or pneumothorax. Heart enlarged with partially visualized right internal jugular central venous access catheter. Aorta mildly atherosclerotic without aneurysm. No pathologic mediastinal lymphadenopathy. Small hiatal hernia. Bony thorax intact with osteopenia and mild/moderate degenerative changes throughout the spine. CT abdomen/pelvis reported separately. Impression: 1. Respiration artifact. 2. Cardiomegaly without CHF. 3. Incidental findings including right hemidiaphragm elevation, arteriosclerotic disease, chronic bony findings, small hiatal hernia, and old granulomatous disease. Comment: Preliminary interpretation made by [facility]. No critical discrepancy.
--- NOTE | 2021-09-23 08:52 | XRAY ---
Indication: Status post colostomy reversal. Weakness, lethargy, chills, and abdominal pain. Multiple contiguous axial images obtained through the abdomen and pelvis without contrast. Comparison: None CT chest reported separately. There has been interval abdominal surgery as evidenced by midline cutaneous tom, lower abdominal wall soft tissue changes, and left lower quadrant ZOIE drainage catheter. Noncontrasted stomach and bowel loops appear nonobstructed with minimal fluid distended small bowel loops and fluid leveling favoring postoperative ileus. Intact rectal anastomosis. No free fluid/air. Again stable right renal cyst, fatty liver, left renal atrophy, cholecystectomy clips, and hysterectomy. Urinary bladder empty with new Sapp balloon catheter. Remaining liver, pancreas, spleen, adrenal glands, kidneys, and ureters are unremarkable for noncontrast exam. Again mild scattered aortoiliac calcifications without AAA. Osseous structures intact again with osteopenia and mild/moderate degenerative changes throughout the spine. Impression: 1. New postsurgical changes as detailed with ZOIE drain and Sapp balloon catheter in situ. No complications. 2. Again chronic findings including fatty liver, right renal cysts, left renal atrophy, arteriosclerotic disease, and chronic bony findings. Comment: Preliminary interpretation made by [facility]. No critical discrepancy.
== END 2021-09-23 01:23 | disposition home or self-care (01) ==
LOC: ED 21:01
DX: N39.0 Urinary tract infection, site not specified (principal); R53.1 Weakness; D64.9 Anemia, unspecified; I13.2 Hypertensive heart and chronic kidney disease with heart failure and with stage 5 chronic kidney disease, or end stage renal disease; N18.6 End stage renal disease; R53.83 Other fatigue; I50.9 Heart failure, unspecified; Z99.2 Dependence on renal dialysis; Z79.899 Other long term (current) drug therapy
CPT/HCPCS: 36415; 71250; 74176; 80053; 81015; 83605; 83690; 84484; 85025; 87040; 87077; 87086; 87186; 87493; 93005; 96365; 96375; 99284; J0696

== ENCOUNTER 2021-10-10 14:15 | Emergency (ER) | payer MEDICARE ==
[2021-10-10] MEDS ORDERED: Sodium Chloride 0.9% 500 ML 500 ML IV ONE ×2 (14:49→14:54)
[2021-10-10 15:52] LABS: Absolute Neutrophil Ct (ANC) 11.48 x10^3/uL (1.4-6.9); Basophil (Absolute #) 0.03 x10^3/uL (0-0.4); Eosinophil (Absolute #) 0.14 x10^3/uL (0-0.5); Hematocrit 31.3 % (35-47); Hemoglobin 9.3 g/dL (12.0-16.0); Lymphocyte (Absolute #) 0.98 x10^3/uL (1.0-4.6); Mean Corpuscular Hemoglobin 30.6 pg (26-32); Mean Corpuscular Hgb Concent. 29.7 g/dL (32-36); Monocyte (Absolute #) 1.28 x10^3/uL (0.0-1.3); Monocytes % 9.1 % (0.0-12.0); Neutrophil % 81.6 % (36.0-66.0); Platelet Count 288 x10^3/uL (150-450); Red Blood Count 3.04 x10^6/uL (4.1-5.4); Red Cell Distribution Width 15.2 % (11.5-14.0); White Blood Count 14.1 x10^3/uL (4.0-10.5)
[2021-10-10 16:02] LABS: Appearance CLOUDY (CLEAR); Bacteria PACKED /HPF (NEGATIVE); Bilirubin SMALL (NEGATIVE); Dipstick done @ ? MAIN LAB; Epithelial Cells RARE /HPF (FEW); Glucose NEGATIVE (NEGATIVE); Ketones SMALL-15 (NEGATIVE); Mucus SLIGHT /HPF (NEGATIVE); Nitrite NEGATIVE (NEGATIVE); Ph 5.5 (5-6); Protein,Urine Dip >=300 (Negative); RBC MODERATE Ery/ul (0-5); Specific Gravity >=1.030 (1.005-1.025); Urobilinogen 0.2 mg/dL (0-1); WBC >100 /HPF (0-5)
[2021-10-10 16:03] LABS: RBC >101 /HPF (0-2); Urine Cultured Indicated? YES
[2021-10-10 16:06] LABS: ALBUMIN 3.6 g/dL (3.5-5.0); BILIRUBIN,TOTAL 0.4 mg/dL (0.2-1.3); Calcium 8.7 mg/dL (8.4-10.2); Creatinine 1 3.9 mg/dL (0.52-1.04); EST GLOMERULAR FILTRATION RATE 11.8 ML/MIN; Potassium 3.1 mmol/L (3.5-5.1); Total Protein 6.4 g/dL (6.3-8.2)
--- NOTE | 2021-10-10 16:52 | XRAY ---
Indication: Weakness and diarrhea. Comparison: May 06, 2021 Portable chest remains clear again with incidental left apical calcified granuloma and focal eventration right hemidiaphragm. Heart not enlarged with new right double-lumen dialysis catheter. Bony thorax intact again with osteopenia and degenerative changes. Impression: Continued nonacute chest with chronic features.
--- NOTE | 2021-10-10 17:04 | XRAY ---
Indication: Diarrhea. Multiple contiguous axial images obtained through the abdomen and pelvis without contrast. Comparison: September 22, 2021 Lung bases demonstrate stable right base 5 mm noncalcified subpleural nodule, minimal bibasilar subsegmental atelectasis/scarring, and focal eventration right hemidiaphragm. No infiltrate or effusion. Heart not enlarged. Again postsurgical changes including midline cutaneous tom and left lower quadrant ZOIE drainage catheter. Noncontrasted stomach and bowel loops remain nonobstructed with intact rectal anastomosis. No free fluid/air. Urinary bladder empty again with Sapp balloon catheter in situ. Again stable right renal cyst, fatty liver, left renal atrophy, cholecystectomy clips, and hysterectomy. Remaining liver, pancreas, spleen, adrenal glands, kidneys, and ureters are unremarkable for noncontrast exam. Again mild scattered aortoiliac calcifications without AAA. Impression: No change compared to CT performed earlier in the month again demonstrating postsurgical changes, ZOIE drain/Sapp balloon catheter in situ, fatty liver, right renal cyst, left renal atrophy, and arteriosclerotic disease.
[2021-10-10] MEDS ORDERED: FLAGYL 500 MG IVPB 500 MG/100 ML BAG IV STA (17:06)
[2021-10-10] MEDS ORDERED: ROCEPHIN 1 Gm-D5w 50 ml Bag** 1 G/50 ML IVPB IV STA (17:06)
[2021-10-10] MEDS ORDERED: FLAGYL 500 MG IVPB 500 MG/100 ML BAG IV ONE (17:09)
[2021-10-10] MEDS ORDERED: ROCEPHIN 1 Gm-D5w 50 ml Bag** 1 G/50 ML IVPB IV ONE (17:09)
--- NOTE | 2021-10-10 17:24 | ERPHSYRPT ---
- History of Present Illness Time Seen by Provider: 10/10/21 14:48 Historian: patient, family, EMS, prison records Exam Limitations: no limitations Patient Subjective Stated Complaint: PT states "I had bowel resection and I have C diff and horrible diarrhea. I am so weak." Triage Nursing Assessment: PT presented aelrt and oriented X 3, skin pwd. Pt able to speak in clear full sentences. Pt resting comfortably on the bed. Pt has healing incision to abdomen with tom intact due to be removed next week. Physician History: 81 years old female resident of prison with history of congestive heart failure, chronic anemia, on dialysis, recent colostomy reversal still having ZOIE drain presented in the ER with chief complaint of worsening diarrhea for last 2 to 3 days, foul-smelling with associated abdominal cramping. Earlier today she was weak fatigued and hypotensive with blood pressure systolic in 60s at prison. She is started on fluids and on presentation it improved to 90s in the ER. Reports no fever or chills but weak fatigued and tired. No difficulty breathing. Patient reports having dealing with C. difficile for quite some time. She is allergic to vancomycin according to her and was given Flagyl on previous ER visit on September 22. She has difficulty urination and Sapp is in place since her surgery last month for urine output measurement as she has recent ESRD. Last dialysis was yesterday. Timing/Duration: day(s) (2), intermittent, gradual onset, worse Activities at Onset: rest Quality: cramping Abdominal Pain Onset Location: generalized abdomen Pain Radiation: no radiation Severity of Pain-Max: mild Severity of Pain-Current: mild Associated Symptoms: vomiting, weakness Previous symptoms: same symptoms as today Allergies/Adverse Reactions: vancomycin Adverse Reaction (Severe, Verified 09/22/21 21:16) pt states causes kidney damage Home Medications: Aspirin EC 81 mg [Ecotrin 81 mg] 81 mg PO DAILY 11/04/18 [History] Furosemide 20 mg [Lasix 20 mg] 40 mg PO DAILY 06/07/19 [History] ALPRAZolam [Alprazolam ER] 0.5 mg PO BID PRN 07/16/19 [History] Atorvastatin Calcium 10 mg PO HS 07/16/19 [History] lisinopriL [Lisinopril] 30 mg PO DAILY 07/16/19 [History] Metoprolol Tartrate 50 mg [Lopressor 50 MG] 50 mg PO DAILY 02/04/20 [History] Hx Tetanus, Diphtheria Vaccination/Date Given: Yes Hx Influenza Vaccination/Date Given: Yes Hx Pneumococcal Vaccination/Date Given: Yes Immunizations Up to Date: Yes Travel Risk - International Travel Have you traveled outside of the country in past 3 weeks: No - Coronavirus Screening Symptoms: Vomiting/Diarrhea - Vaccine Status Have you recieved a Covid-19 vaccination: Yes Traffic 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 Officer: Moderna - Vaccination Dates Date of 2cond Vaccination (if applicable): unknown - Review of Systems Constitutional: Fatigue, Weakness Eyes: No Symptoms Ears, Nose, & Throat: No Symptoms Respiratory: No Symptoms Cardiac: No Symptoms Abdominal/Gastrointestinal: Abdominal Pain, Diarrhea Genitourinary Symptoms: No Symptoms Musculoskeletal: No Symptoms Skin: No Symptoms Neurological: No Symptoms Endocrine: No Symptoms Hematologic/Lymphatic: No Symptoms Immunological/Allergic: No Symptoms - Past Medical History Pertinent Past Medical History: Yes Neurological History: No Pertinent History ENT History: Cataracts Cardiac History: Hypertension Respiratory History: No Pertinent History Endocrine Medical History: Adrenal Insufficiency, Other Musculoskeletal History: Osteoarthritis GI Medical History: Diverticulitis, Diverticulosis, GERD, Other History: No Pertinent History Psycho-Social History: No Pertinent History Female Reproductive Disorders: No Pertinent History Other Medical History: Colostomy, R shoulder RTC tear, B TKA. - Past Surgical History Past Surgical History: Yes Neuro Surgical History: No Pertinent History Cardiac: No Pertinent History Respiratory: No Pertinent History Gastrointestinal: Appendectomy, Cholecystectomy, Colon Resection Genitourinary: No Pertinent History Musculoskeletal: Joint Replacement, Orthopedic Surgery Female Surgical History: Hysterectomy Other Surgical History: brittney knees, brittney wrist,. Skin cancer removed from face 2005. colostomy - Social History Smoking Status: Former smoker Exposure to second hand smoke: Yes Alcohol Use: None Drug Use: none Patient Lives Alone: No Significant Family History: no pertinent family hx - Nursing Vital Signs Nursing Vital Signs: Initial Vital Signs Temperature 97.2 F 10/10/21 14:17 Pulse Rate 79 10/10/21 14:17 Respiratory Rate 10/10/21 14:17 Blood Pressure 89/48 10/10/21 14:17 O2 Sat by Pulse Oximetry 100 10/10/21 14:17 Pain Scale Pain Intensity 1 - Physical Exam General Appearance: no apparent distress, alert Eye Exam: PERRL/EOMI Ears, Nose, Throat Exam: normal ENT inspection, pharynx normal Neck Exam: normal inspection, non-tender, full range of motion Respiratory Exam: normal breath sounds, lungs clear Cardiovascular Exam: regular rate/rhythm, normal heart sounds Gastrointestinal/Abdomen Exam: soft, normal bowel sounds, tenderness, No gu arding Extremity Exam: normal inspection, normal range of motion Neurologic Exam: alert, 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, cooperative, 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 adjudication specialist II-XII nml as tested Skin Exam: normal color SpO2 Interpretation: normal SpO2: 100 O2 Delivery: Room Air Ordered Tests: Medication Summary Discontinued Medications Generic Name Dose Route Start Last Admin Trade Name Freq PRN Reason Stop Dose Admin Sodium Chloride 500 mls @ 500 mls/hr 10/10/21 14:49 10/10/21 21:55 Sodium Chloride 0.9% 500 Ml IV 10/10/21 15:48 75 mls/hr .Q1H ONE Infusion Sodium Chloride Confirm 10/10/21 14:54 Sodium Chloride 0.9% 500 Ml Administered 10/10/21 14:55 Dose 500 mls @ ud IV .STK-MED ONE Ceftriaxone Sodium/Dextrose 1 g in 50 mls @ 100 mls/hr 10/10/21 17:06 10/10/21 18:01 Rocephin 1 Gm-D5w 50 Ml Bag IV 10/10/21 17:35 Infused STAT STA Infusion Metronidazole 500 mg in 100 mls @ 200 mls/hr 10/10/21 17:06 10/10/21 18:00 Flagyl 500 Mg Ivpb IV 10/10/21 17:35 Infused STAT STA Infusion Metronidazole Confirm 10/10/21 17:09 Flagyl 500 Mg Ivpb Administered 10/10/21 17:10 Dose 500 mg in 100 mls @ ud IV .STK-MED ONE Ceftriaxone Sodium/Dextrose Confirm 10/10/21 17:09 Rocephin 1 Gm-D5w 50 Ml Bag Administered 10/10/21 17:10 Dose 1 g in 50 mls @ ud IV .STK-MED ONE Lab/Rad Data: Laboratory Result Diagrams 10/10/21 14:48 10/10/21 15:27 Laboratory Results 10/10/21 10/10/21 10/10/21 Range/Units Unknown 19:20 16:56 WBC (4.0-10.5) x10^3/uL RBC (4.1-5.4) x10^6/uL Hgb (12.0-16.0) g/dL Hct (35-47) % MCV (78-100) fL MCH (26-32) pg MCHC (32-36) g/dL RDW (11.5-14.0) % Plt Count (150-450) x10^3/uL MPV (7.5-11.0) fL Gran % (36.0-66.0) % Immature Gran % (Auto) (0.00-0.4) % Nucleat RBC Rel Count (0.00-0.1) % Eos # (Auto) (0-0.5) x10^3/uL Immature Gran # (Auto) (0.00-0.03) x10^3u/L Absolute Lymphs (auto) (1.0-4.6) x10^3/uL Absolute Monos (auto) (0.0-1.3) x10^3/uL Absolute Nucleated RBC (0.00-0.01) x10^3u/L Lymphocytes % (24.0-44.0) % Monocytes % (0.0-12.0) % Eosinophils % (0.00-5.0) % Basophils % (0.0-0.4) % Absolute Granulocytes (1.4-6.9) x10^3/uL Basophils # (0-0.4) x10^3/uL Sodium (137-145) mmol/L Potassium (3.5-5.1) mmol/L Chloride (98-107) mmol/L Carbon Dioxide (22-30) mmol/L Anion Gap (5-15) MEQ/L BUN (7-17) mg/dL Creatinine (0.52-1.04) mg/dL Estimated GFR ML/MIN Glucose (74-106) mg/dL Lactic Acid (0.4-2.0) Calcium (8.4-10.2) mg/dL Magnesium (1.6-2.3) mg/dL Total Bilirubin (0.2-1.3) mg/dL AST (14-36) U/L ALT (0-35) U/L Alkaline Phosphatase (38-126) U/L Troponin I 0.030 (0.000-0.034) ng/mL Serum Total Protein (6.3-8.2) g/dL Albumin (3.5-5.0) g/dL Lipase (23-300) U/L Procalcitonin (0.030-0.080) ng/mL Urinalys Dipstick Clnc Urine Color (YELLOW) Urine Appearance (CLEAR) Urine pH (5-6) Ur Specific [place] (1.005-1.025) POC Urine Protein Conf (Negative) Urine Ketones (NEGATIVE) Urine Nitrite (NEGATIVE) Urine Bilirubin (NEGATIVE) Urine Urobilinogen (0-1) mg/dL Urine Leukocytes (NEGATIVE) Urine WBC (Auto) (0-5) /HPF Urine RBC (Auto) (0-2) /HPF U Epithel Cells (Auto) (FEW) /HPF Urine Bacteria (Auto) (NEGATIVE) /HPF Urine RBC (0-5) Jerad/ul Urine Mucus (Auto) (NEGATIVE) /HPF Ur Culture Indicated? Urine Glucose (NEGATIVE) mg/dL C. difficile Screen POSITIVE (NEGATIVE) C.difficile 027-NAP1-B1 PRESUMPTIVE POSITIVE (NEGATIVE) Influenza Type A Ag NEGATIVE (NEGATIVE) Influenza Type B Ag NEGATIVE (NEGATIVE) RSV (PCR) NEGATIVE (Negative) SARS-CoV-2 (PCR) NEGATIVE (NEGATIVE) 10/10/21 10/10/21 10/10/21 Range/Units 15:42 15:27 15:27 WBC (4.0-10.5) x10^3/uL RBC (4.1-5.4) x10^6/uL Hgb (12.0-16.0) g/dL Hct (35-47) % MCV (78-100) fL MCH (26-32) pg MCHC (32-36) g/dL RDW (11.5-14.0) % Plt Count (150-450) x10^3/uL MPV (7.5-11.0) fL Gran % (36.0-66.0) % Immature Gran % (Auto) (0.00-0.4) % Nucleat RBC Rel Count (0.00-0.1) % Eos # (Auto) (0-0.5) x10^3/uL Immature Gran # (Auto) (0.00-0.03) x10^3u/L Absolute Lymphs (auto) (1.0-4.6) x10^3/uL Absolute Monos (auto) (0.0-1.3) x10^3/uL Absolute Nucleated RBC (0.00-0.01) x10^3u/L Lymphocytes % (24.0-44.0) % Monocytes % (0.0-12.0) % Eosinophils % (0.00-5.0) % Basophils % (0.0-0.4) % Absolute Granulocytes (1.4-6.9) x10^3/uL Basophils # (0-0.4) x10^3/uL Sodium (137-145) mmol/L Potassium (3.5-5.1) mmol/L Chloride (98-107) mmol/L Carbon Dioxide (22-30) mmol/L Anion Gap (5-15) MEQ/L BUN (7-17) mg/dL Creatinine (0.52-1.04) mg/dL Estimated GFR ML/MIN Glucose (74-106) mg/dL Lactic Acid 1.6 (0.4-2.0) Calcium (8.4-10.2) mg/dL Magnesium (1.6-2.3) mg/dL Total Bilirubin (0.2-1.3) mg/dL AST (14-36) U/L ALT (0-35) U/L Alkaline Phosphatase (38-126) U/L Troponin I 0.031 (0.000-0.034) ng/mL Serum Total Protein (6.3-8.2) g/dL Albumin (3.5-5.0) g/dL Lipase (23-300) U/L Procalcitonin 1.520 H (0.030-0.080) ng/mL Urinalys Dipstick Clnc Urine Color (YELLOW) Urine Appearance (CLEAR) Urine pH (5-6) Ur Specific [place] (1.005-1.025) POC Urine Protein Conf (Negative) Urine Ketones (NEGATIVE) Urine Nitrite (NEGATIVE) Urine Bilirubin (NEGATIVE) Urine Urobilinogen (0-1) mg/dL Urine Leukocytes (NEGATIVE) Urine WBC (Auto) (0-5) /HPF Urine RBC (Auto) (0-2) /HPF U Epithel Cells (Auto) (FEW) /HPF Urine Bacteria (Auto) (NEGATIVE) /HPF Urine RBC (0-5) Jerad/ul Urine Mucus (Auto) (NEGATIVE) /HPF Ur Culture Indicated? Urine Glucose (NEGATIVE) mg/dL C. difficile Screen (NEGATIVE) C.difficile 027-NAP1-B1 (NEGATIVE) Influenza Type A Ag (NEGATIVE) Influenza Type B Ag (NEGATIVE) RSV (PCR) (Negative) SARS-CoV-2 (PCR) (NEGATIVE) 10/10/21 10/10/21 10/10/21 Range/Units 15:27 15:27 15:03 WBC (4.0-10.5) x10^3/uL RBC (4.1-5.4) x10^6/uL Hgb (12.0-16.0) g/dL Hct (35-47) % MCV (78-100) fL MCH (26-32) pg MCHC (32-36) g/dL RDW (11.5-14.0) % Plt Count (150-450) x10^3/uL MPV (7.5-11.0) fL Gran % (36.0-66.0) % Immature Gran % (Auto) (0.00-0.4) % Nucleat RBC Rel Count (0.00-0.1) % Eos # (Auto) (0-0.5) x10^3/uL Immature Gran # (Auto) (0.00-0.03) x10^3u/L Absolute Lymphs (auto) (1.0-4.6) x10^3/uL Absolute Monos (auto) (0.0-1.3) x10^3/uL Absolute Nucleated RBC (0.00-0.01) x10^3u/L Lymphocytes % (24.0-44.0) % Monocytes % (0.0-12.0) % Eosinophils % (0.00-5.0) % Basophils % (0.0-0.4) % Absolute Granulocytes (1.4-6.9) x10^3/uL Basophils # (0-0.4) x10^3/uL Sodium 138 (137-145) mmol/L Potassium 3.1 L (3.5-5.1) mmol/L Chloride 97 L (98-107) mmol/L Carbon Dioxide 33 H (22-30) mmol/L Anion Gap 11.0 (5-15) MEQ/L BUN 22 H (7-17) mg/dL Creatinine 3.90 H (0.52-1.04) mg/dL Estimated GFR 11.8 ML/MIN Glucose 168 H (74-106) mg/dL Lactic Acid (0.4-2.0) Calcium 8.7 (8.4-10.2) mg/dL Magnesium 1.9 (1.6-2.3) mg/dL Total Bilirubin 0.40 (0.2-1.3) mg/dL AST 23 (14-36) U/L ALT 18 (0-35) U/L Alkaline Phosphatase 70 (38-126) U/L Troponin I (0.000-0.034) ng/mL Serum Total Protein 6.4 (6.3-8.2) g/dL Albumin 3.6 (3.5-5.0) g/dL Lipase 83 (23-300) U/L Procalcitonin (0.030-0.080) ng/mL Urinalys Dipstick Clnc MAIN LAB Urine Color YELLOW (YELLOW) Urine Appearance CLOUDY (CLEAR) Urine pH 5.5 (5-6) Ur Specific [place] >=1.030 (1.005-1.025) POC Urine Protein Conf >=300 (Negative) Urine Ketones SMALL-15 (NEGATIVE) Urine Nitrite NEGATIVE (NEGATIVE) Urine Bilirubin SMALL (NEGATIVE) Urine Urobilinogen 0.2 (0-1) mg/dL Urine Leukocytes LARGE (NEGATIVE) Urine WBC (Auto) >100 (0-5) /HPF Urine RBC (Auto) >101 (0-2) /HPF U Epithel Cells (Auto) RARE (FEW) /HPF Urine Bacteria (Auto) PACKED (NEGATIVE) /HPF Urine RBC MODERATE (0-5) Jerad/ul Urine Mucus (Auto) SLIGHT (NEGATIVE) /HPF Ur Culture Indicated? YES Urine Glucose NEGATIVE (NEGATIVE) mg/dL C. difficile Screen (NEGATIVE) C.difficile 027-NAP1-B1 (NEGATIVE) Influenza Type A Ag (NEGATIVE) Influenza Type B Ag (NEGATIVE) RSV (PCR) (Negative) SARS-CoV-2 (PCR) (NEGATIVE) 10/10/21 Range/Units 14:48 WBC 14.1 H (4.0-10.5) x10^3/uL RBC 3.04 L (4.1-5.4) x10^6/uL Hgb 9.3 L (12.0-16.0) g/dL Hct 31.3 L (35-47) % MCV 103.0 H (78-100) fL MCH 30.6 (26-32) pg MCHC 29.7 L (32-36) g/dL RDW 15.2 H (11.5-14.0) % Plt Count 288 (150-450) x10^3/uL MPV 10.0 (7.5-11.0) fL Gran % 81.6 H (36.0-66.0) % Immature Gran % (Auto) 1.1 H (0.00-0.4) % Nucleat RBC Rel Count 0.0 (0.00-0.1) % Eos # (Auto) 0.14 (0-0.5) x10^3/uL Immature Gran # (Auto) 0.15 H (0.00-0.03) x10^3u/L Absolute Lymphs (auto) 0.98 L (1.0-4.6) x10^3/uL Absolute Monos (auto) 1.28 (0.0-1.3) x10^3/uL Absolute Nucleated RBC 0.00 (0.00-0.01) x10^3u/L Lymphocytes % 7.0 L (24.0-44.0) % Monocytes % 9.1 (0.0-12.0) % Eosinophils % 1.0 (0.00-5.0) % Basophils % 0.2 (0.0-0.4) % Absolute Granulocytes 11.48 H (1.4-6.9) x10^3/uL Basophils # 0.03 (0-0.4) x10^3/uL Sodium (137-145) mmol/L Potassium (3.5-5.1) mmol/L Chloride (98-107) mmol/L Carbon Dioxide (22-30) mmol/L Anion Gap (5-15) MEQ/L BUN (7-17) mg/dL Creatinine (0.52-1.04) mg/dL Estimated GFR ML/MIN Glucose (74-106) mg/dL Lactic Acid (0.4-2.0) Calcium (8.4-10.2) mg/dL Magnesium (1.6-2.3) mg/dL Total Bilirubin (0.2-1.3) mg/dL AST (14-36) U/L ALT (0-35) U/L Alkaline Phosphatase (38-126) U/L Troponin I (0.000-0.034) ng/mL Serum Total Protein (6.3-8.2) g/dL Albumin (3.5-5.0) g/dL Lipase (23-300) U/L Procalcitonin (0.030-0.080) ng/mL Urinalys Dipstick Clnc Urine Color (YELLOW) Urine Appearance (CLEAR) Urine pH (5-6) Ur Specific [place] (1.005-1.025) POC Urine Protein Conf (Negative) Urine Ketones (NEGATIVE) Urine Nitrite (NEGATIVE) Urine Bilirubin (NEGATIVE) Urine Urobilinogen (0-1) mg/dL Urine Leukocytes (NEGATIVE) Urine WBC (Auto) (0-5) /HPF Urine RBC (Auto) (0-2) /HPF U Epithel Cells (Auto) (FEW) /HPF Urine Bacteria (Auto) (NEGATIVE) /HPF Urine RBC (0-5) Jerad/ul Urine Mucus (Auto) (NEGATIVE) /HPF Ur Culture Indicated? Urine Glucose (NEGATIVE) mg/dL C. difficile Screen (NEGATIVE) C.difficile 027-NAP1-B1 (NEGATIVE) Influenza Type A Ag (NEGATIVE) Influenza Type B Ag (NEGATIVE) RSV (PCR) (Negative) SARS-CoV-2 (PCR) (NEGATIVE) - Progress Progress Note: 10/10/21 19:41 9 years old is evaluated for generalized weakness with diarrhea and hypotension. Patient is given gentle hydration to avoid having fluid overload status because of her being on dialysis. Obtain chest x-ray which is negative. CT abdomen pelvis negative for any acute findings. Has a white count of 14, chemistry profile showed BUN 22, creatinine 3.6 and bicarb of 33 with potassium of 3.1. Patient does have UTI and positive C. difficile. Started on Rocephin and Flagyl. Patient is allergic to vancomycin. Since patient is on hemodialysis cannot be kept in here. I have called multiple hospitals and no beds is available in [facility]. I have discussed with Shirley nurse practitioner for internal medicine for Dr. Salas at [facility], reviewed history, work-up, also discussed with nephrology Dr. Alonso but later on patient was not excepted because she has a recent surgery done at [facility] and did not want to accept patient with recent surgery. We will continue to work on placement. According to nephrology with her renal functions she does not need immediate dialysis and if she has any overload status, can be given Lasix. 10/10/21 20:[address] Rodriguez and patient is excepted for transfer at [facility]. Discussed with Dr.: Other Counseled pt/family regarding: lab results, diagnosis, need for follow-up, rad results - Departure Departure Disposition: Transfer Clinical Impression: C. difficile diarrhea, Hypertension, Sepsis, UTI (urinary tract infection) Condition: Stable Critical Care Time: No Referrals: FRANKI TOBAR MD [Primary Care Provider] - Follow up/PCP as directed
[2021-10-10 17:42] LABS: 027 TOX PROD PRESUMPTIVE POSITIVE (NEGATIVE)
[2021-10-10 17:45] LABS: TOXIGENIC C. DIFF ORG POSITIVE (NEGATIVE)
[2021-10-10 18:08] LABS: INFLUENZA A NEGATIVE (NEGATIVE); INFLUENZA B NEGATIVE (NEGATIVE); RESPIRATORY SYNCTIAL VIRUS NEGATIVE (Negative); SARS-CoV-2 Xpert Express NEGATIVE (NEGATIVE)
[2021-10-10 21:55] VITALS: BP 124/54; PULSE 92
[2021-10-12 07:35] VITALS: O2SAT 100
== END 2021-10-10 22:25 | disposition short-term general hospital (02) ==
LOC: ED 14:15
DX: A41.9 Sepsis, unspecified organism (principal); N39.0 Urinary tract infection, site not specified; A04.72 Enterocolitis due to Clostridium difficile, not specified as recurrent; I13.2 Hypertensive heart and chronic kidney disease with heart failure and with stage 5 chronic kidney disease, or end stage renal disease; I50.9 Heart failure, unspecified; N18.6 End stage renal disease; Z99.2 Dependence on renal dialysis; R10.84 Generalized abdominal pain; Z79.899 Other long term (current) drug therapy; Z20.828 Contact with and (suspected) exposure to other viral communicable diseases
CPT/HCPCS: 0241U; 36000; 36415; 71045; 74176; 80053; 81015; 83605; 83690; 83735; 84145; 84484; 85025; 87040; 87077; 87086; 87186; 87493; 93005; 96360; 96361; 96365; 99285; J0696

== ENCOUNTER 2021-10-24 17:07 | Emergency (ER) | payer MEDICARE ==
[2021-10-24 18:08] LABS: Bacteria RARE /HPF (NEGATIVE); Epithelial Cells RARE /HPF (FEW); Mucus SLIGHT /HPF (NEGATIVE); WBC 0-2 /HPF (0-5)
[2021-10-24 18:11] LABS: Appearance CLEAR (CLEAR); Bilirubin NEGATIVE (NEGATIVE); Glucose NEGATIVE (NEGATIVE); Ketones NEGATIVE (NEGATIVE); Ph 5.5 (5-6); RBC NEGATIVE Ery/ul (0-5); Specific Gravity 1.025 (1.005-1.025)
[2021-10-24 18:12] LABS: Nitrite NEGATIVE (NEGATIVE); Protein,Urine Dip 30 (Negative); Urine Cultured Indicated? NO; Urobilinogen 0.2 mg/dL (0-1)
[2021-10-24 18:13] LABS: Dipstick done @ ? MAIN LAB
[2021-10-24 18:37] LABS: Basophil (Absolute #) 0.05 x10^3/uL (0-0.4); Eosinophil % 3.5 % (0.00-5.0); Eosinophil (Absolute #) 0.36 x10^3/uL (0-0.5); Hematocrit 30.4 % (35-47); Lymphocyte (Absolute #) 1.03 x10^3/uL (1.0-4.6); Lymphocytes % 9.9 % (24.0-44.0); Mean Cell Volume 104.8 fL (78-100); Mean Corpuscular Hgb Concent. 29.6 g/dL (32-36); Mean Platelet Volume 10.2 fL (7.5-11.0); Monocyte (Absolute #) 1.12 x10^3/uL (0.0-1.3); Monocytes % 10.8 % (0.0-12.0); Neutrophil % 74.9 % (36.0-66.0); Platelet Count 238 x10^3/uL (150-450); Red Cell Distribution Width 16.2 % (11.5-14.0); White Blood Count 10.4 x10^3/uL (4.0-10.5)
[2021-10-24 18:43] LABS: ALBUMIN 3.1 g/dL (3.5-5.0); ANION GAP 12.5 MEQ/L (5-15); BILIRUBIN,TOTAL 0.4 mg/dL (0.2-1.3); Calcium 8.3 mg/dL (8.4-10.2); Creatinine 1 1.85 mg/dL (0.52-1.04); EST GLOMERULAR FILTRATION RATE 27.9 ML/MIN; Potassium 5.5 mmol/L (3.5-5.1); Total Protein 5.7 g/dL (6.3-8.2)
[2021-10-24] MEDS ORDERED: Sodium Chloride 0.9% 500 ML 500 ML IV ONE ×2 (19:36→19:46)
--- NOTE | 2021-10-24 19:36 | ERPHSYRPT ---
- History of Present Illness Time Seen by Provider: 10/24/21 17:23 Source: patient Exam Limitations: no limitations Patient Subjective Stated Complaint: pt here for weakness, she was released from hospital sat, for c diff, she had labs today, she states she is not eating and drinking well Triage Nursing Assessment: pt alert, resp easy at rest, sob with excertion. face mask in place, has dialysis cath to right side of chest and j p drain to abd, Physician History: 81 years old female with history of congestive heart failure, hypertension, hyperlipidemia, colostomy reversal almost 2 months ago with C. difficile later needing multiple courses of antibiotics, discharged from [facility] last week was seen at primary care office and has lab work done is complaining of generalized weakness fatigue and tiredness. Patient was on dialysis after surgery for a little while and now she is off of dialysis. Denies any cough fever chills, nausea vomiting or diarrhea. No worsening of abdominal pain but what she has from recent surgery. She has lack of energy to do her routine activities. Daughter think patient is dehydrated. Timing/Duration: day(s), intermittent, worse Severity: moderate Associated Symptoms: abdominal pain, loss of appetite, malaise, weakness, No nausea, No vomiting, No shortness of breath, No diaphoresis, No cough, No chills, No chest pain, No fever, No syncope, No seizure Allergies/Adverse Reactions: vancomycin Adverse Reaction (Severe, Verified 09/22/21 21:16) pt states causes kidney damage Home Medications: Aspirin EC 81 mg [Ecotrin 81 mg] 81 mg PO DAILY 11/04/18 [History] Furosemide 20 mg [Lasix 20 mg] 40 mg PO DAILY 06/07/19 [History] ALPRAZolam [Alprazolam ER] 0.5 mg PO BID PRN 07/16/19 [History] Atorvastatin Calcium 10 mg PO HS 07/16/19 [History] lisinopriL [Lisinopril] 30 mg PO DAILY 07/16/19 [History] Metoprolol Tartrate 50 mg [Lopressor 50 MG] 50 mg PO DAILY 02/04/20 [History] Hx Tetanus, Diphtheria Vaccination/Date Given: No Hx Influenza Vaccination/Date Given: No Hx Pneumococcal Vaccination/Date Given: No Immunizations Up to Date: Yes Travel Risk - International Travel Have you traveled outside of the country in past 3 weeks: No - Coronavirus Screening Are you exhibiting any of the following symptoms?: No Close contact with a COVID-19 positive Pt in past 14-21 Days: No - Vaccine Status Have you recieved a Covid-19 vaccination: Yes 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 - Vaccination Dates Date of 2cond Vaccination (if applicable): unknown - Review of Systems Constitutional: Fatigue, Weakness Eyes: No Symptoms Ears, Nose, & Throat: No Symptoms Respiratory: No Symptoms Cardiac: No Symptoms Abdominal/Gastrointestinal: Abdominal Pain Genitourinary Symptoms: No Symptoms Musculoskeletal: Myalgias Neurological: No Symptoms Psychological: No Symptoms Endocrine: No Symptoms Hematologic/Lymphatic: No Symptoms Immunological/Allergic: No Symptoms - Past Medical History Pertinent Past Medical History: Yes Neurological History: No Pertinent History ENT History: Cataracts Cardiac History: Hypertension Respiratory History: No Pertinent History Endocrine Medical History: Adrenal Insufficiency, Other Musculoskeletal History: Osteoarthritis GI Medical History: Diverticulitis, Diverticulosis, GERD, Other History: No Pertinent History Psycho-Social History: No Pertinent History Female Reproductive Disorders: No Pertinent History Other Medical History: Colostomy, R shoulder RTC tear, B TKA. - Past Surgical History Past Surgical History: Yes Neuro Surgical History: No Pertinent History Cardiac: No Pertinent History Respiratory: No Pertinent History Gastrointestinal: Appendectomy, Cholecystectomy, Colon Resection Genitourinary: No Pertinent History Musculoskeletal: Joint Replacement, Orthopedic Surgery Female Surgical History: Hysterectomy Other Surgical History: brittney knees, brittney wrist,. Skin cancer removed from face 2005. colostomy - Social History Smoking Status: Former smoker Exposure to second hand smoke: Yes Alcohol Use: None Drug Use: none Patient Lives Alone: No Significant Family History: no pertinent family hx - Nursing Vital Signs Nursing Vital Signs: Initial Vital Signs Temperature 97.2 F 10/24/21 17:18 Pulse Rate 78 10/24/21 17:18 Respiratory Rate 24 10/24/21 17:18 Blood Pressure 100/67 10/24/21 17:18 O2 Sat by Pulse Oximetry 95 10/24/21 17:18 Pain Scale Pain Intensity 0 - Physical Exam General Appearance: no apparent distress, alert Eye Exam: PERRL/EOMI, eyes nml inspection Ears, Nose, Throat Exam: normal ENT inspection, TMs normal, pharynx normal, moist mucous membranes Neck Exam: normal inspection, non-tender, supple, full range of motion Respiratory Exam: normal breath sounds, lungs clear Cardiovascular Exam: regular rate/rhythm, normal heart sounds Gastrointestinal/Abdomen Exam: soft, normal bowel sounds, tenderness (Mild tenderness around incision sites. 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 stack developer II-XII nml as tested, normal mood/affect, sensation nml, No motor deficits Skin Exam: normal color SpO2 Interpretation: normal SpO2: 95 O2 Delivery: Room Air - Course EKG Interpreted by Me: RATE ([id number]), Sinus Rhythm, Left [place] Deviation, LAFB, Q- wave Ordered Tests: Active Orders 24 hr Category Date Time Status CHEST 1 VIEW (PORTABLE) Stat Exams 10/24/21 17:24 Taken BLOOD CULTURE Stat Lab 10/24/21 18:20 Received CBC W DIFF Stat Lab 10/24/21 16:26 Completed CMP Stat Lab 10/24/21 16:26 Completed Lactic Acid Stat Lab 10/24/21 17:24 Completed PROCALCITONIN Stat Lab 10/24/21 Ordered TROPONIN Q4H Lab 10/24/21 17:30 Completed TROPONIN Q4H Lab 10/24/21 21:30 Ordered TROPONIN Q4H Lab 10/25/21 01:30 Ordered UA W/RFX CULTURE Stat Lab 10/24/21 17:45 Completed Medication Summary Discontinued Medications Generic Name Dose Route Start Last Admin Trade Name Freq PRN Reason Stop Dose Admin Sodium Chloride 500 mls @ 500 mls/hr 10/24/21 19:36 10/24/21 20:47 Sodium Chloride 0.9% 500 Ml IV 10/24/21 20:35 Infused .Q1H ONE Infusion Sodium Chloride Confirm 10/24/21 19:46 Sodium Chloride 0.9% 500 Ml Administered 10/24/21 19:47 Dose 500 mls @ ud IV .STK-MED ONE Lab/Rad Data: Laboratory Result Diagrams 10/24/21 16:26 10/24/21 16:26 Laboratory Results 10/24/21 10/24/21 10/24/21 Range/Units 17:45 17:30 17:24 WBC (4.0-10.5) x10^3/uL RBC (4.1-5.4) x10^6/uL Hgb (12.0-16.0) g/dL Hct (35-47) % MCV (78-100) fL MCH (26-32) pg MCHC (32-36) g/dL RDW (11.5-14.0) % Plt Count (150-450) x10^3/uL MPV (7.5-11.0) fL Gran % (36.0-66.0) % Immature Gran % (Auto) (0.00-0.4) % Nucleat RBC Rel Count (0.00-0.1) % Eos # (Auto) (0-0.5) x10^3/uL Immature Gran # (Auto) (0.00-0.03) x10^3u/L Absolute Lymphs (auto) (1.0-4.6) x10^3/uL Absolute Monos (auto) (0.0-1.3) x10^3/uL Absolute Nucleated RBC (0.00-0.01) x10^3u/L Lymphocytes % (24.0-44.0) % Monocytes % (0.0-12.0) % Eosinophils % (0.00-5.0) % Basophils % (0.0-0.4) % Absolute Granulocytes (1.4-6.9) x10^3/uL Basophils # (0-0.4) x10^3/uL Sodium (137-145) mmol/L Potassium (3.5-5.1) mmol/L Chloride (98-107) mmol/L Carbon Dioxide (22-30) mmol/L Anion Gap (5-15) MEQ/L BUN (7-17) mg/dL Creatinine (0.52-1.04) mg/dL Estimated GFR ML/MIN Glucose (74-106) mg/dL Lactic Acid 0.9 (0.4-2.0) Calcium (8.4-10.2) mg/dL Total Bilirubin (0.2-1.3) mg/dL AST (14-36) U/L ALT (0-35) U/L Alkaline Phosphatase (38-126) U/L Troponin I < 0.012 (0.000-0.034) ng/mL Serum Total Protein (6.3-8.2) g/dL Albumin (3.5-5.0) g/dL Urinalys Dipstick Clnc MAIN LAB Urine Color YELLOW (YELLOW) Urine Appearance CLEAR (CLEAR) Urine pH 5.5 (5-6) Ur Specific [place] 1.025 (1.005-1.025) POC Urine Protein Conf 30 (Negative) Urine Ketones NEGATIVE (NEGATIVE) Urine Nitrite NEGATIVE (NEGATIVE) Urine Bilirubin NEGATIVE (NEGATIVE) Urine Urobilinogen 0.2 (0-1) mg/dL Urine Leukocytes NEGATIVE (NEGATIVE) Urine WBC (Auto) 0-2 (0-5) /HPF Urine RBC (Auto) NONE (0-2) /HPF U Epithel Cells (Auto) RARE (FEW) /HPF Urine Bacteria (Auto) RARE (NEGATIVE) /HPF Urine RBC NEGATIVE (0-5) Jerad/ul Urine Mucus (Auto) SLIGHT (NEGATIVE) /HPF Ur Culture Indicated? NO Urine Glucose NEGATIVE (NEGATIVE) mg/dL 10/24/21 10/24/21 Range/Units 16:26 16:26 WBC 10.4 (4.0-10.5) x10^3/uL RBC 2.90 L (4.1-5.4) x10^6/uL Hgb 9.0 L (12.0-16.0) g/dL Hct 30.4 L (35-47) % MCV 104.8 H (78-100) fL MCH 31.0 (26-32) pg MCHC 29.6 L (32-36) g/dL RDW 16.2 H (11.5-14.0) % Plt Count 238 (150-450) x10^3/uL MPV 10.2 (7.5-11.0) fL Gran % 74.9 H (36.0-66.0) % Immature Gran % (Auto) 0.4 (0.00-0.4) % Nucleat RBC Rel Count 0.0 (0.00-0.1) % Eos # (Auto) 0.36 (0-0.5) x10^3/uL Immature Gran # (Auto) 0.04 H (0.00-0.03) x10^3u/L Absolute Lymphs (auto) 1.03 (1.0-4.6) x10^3/uL Absolute Monos (auto) 1.12 (0.0-1.3) x10^3/uL Absolute Nucleated RBC 0.00 (0.00-0.01) x10^3u/L Lymphocytes % 9.9 L (24.0-44.0) % Monocytes % 10.8 (0.0-12.0) % Eosinophils % 3.5 (0.00-5.0) % Basophils % 0.5 (0.0-0.4) % Absolute Granulocytes 7.80 H (1.4-6.9) x10^3/uL Basophils # 0.05 (0-0.4) x10^3/uL Sodium 139 (137-145) mmol/L Potassium 5.5 H (3.5-5.1) mmol/L Chloride 111 H (98-107) mmol/L Carbon Dioxide 20 L (22-30) mmol/L Anion Gap 12.5 (5-15) MEQ/L BUN 29 H (7-17) mg/dL Creatinine 1.85 H (0.52-1.04) mg/dL Estimated GFR 27.9 ML/MIN Glucose 112 H (74-106) mg/dL Lactic Acid (0.4-2.0) Calcium 8.3 L (8.4-10.2) mg/dL Total Bilirubin 0.40 (0.2-1.3) mg/dL AST 20 (14-36) U/L ALT 14 (0-35) U/L Alkaline Phosphatase 40 (38-126) U/L Troponin I (0.000-0.034) ng/mL Serum Total Protein 5.7 L (6.3-8.2) g/dL Albumin 3.1 L (3.5-5.0) g/dL Urinalys Dipstick Clnc Urine Color (YELLOW) Urine Appearance (CLEAR) Urine pH (5-6) Ur Specific [place] (1.005-1.025) POC Urine Protein Conf (Negative) Urine Ketones (NEGATIVE) Urine Nitrite (NEGATIVE) Urine Bilirubin (NEGATIVE) Urine Urobilinogen (0-1) mg/dL Urine Leukocytes (NEGATIVE) Urine WBC (Auto) (0-5) /HPF Urine RBC (Auto) (0-2) /HPF U Epithel Cells (Auto) (FEW) /HPF Urine Bacteria (Auto) (NEGATIVE) /HPF Urine RBC (0-5) Jeard/ul Urine Mucus (Auto) (NEGATIVE) /HPF Ur Culture Indicated? Urine Glucose (NEGATIVE) mg/dL - Progress Progress: improved Progress Note: 10/24/21 20:25 She is given gentle hydration. Patient is not in any distress. Oxygen saturation around 96% on room air, lungs bilateral clear to auscultation. X- rays reviewed by me did not reveal any obvious cardiopulmonary findings. She has normal white count, hemoglobin of 9.0 which is stable around new current baseline as she has chronic anemia. Her renal functions are improved despite being not on dialysis and it is 1.8 creatinine. She has mildly elevated potassium of 5.5, I believe with fluids it will improve. No EKG changes suggesting acute ischemia and negative troponins. No UTI. Normal lactate. I do not have any obvious focus of infection or acute electrolyte abnormality and no other obvious reason for her generalized weakness, recommended supportive care and outpatient follow-up. Discussed signs symptoms of worsening needing return to ER which she seems understanding. Stable for discharge. Counseled pt/family regarding: lab results, diagnosis, need for follow-up, rad results - Departure Departure Disposition: Home Clinical Impression: Generalized weakness Condition: Stable Critical Care Time: No Referrals: FRANKI TOBAR MD [Primary Care Provider] - Follow up/PCP as directed (1-2 days for reevaluation) Instructions: Generalized Weakness (DC) Additional Instructions: Follow-up with primary care for reevaluation. Continue with current medications. Return to ER for worsening weakness or if develop fever chills, difficulty breathing/cough/worsening abdominal pain/vomiting/diarrhea etc.
[2021-10-24 20:20] VITALS: BP 117/56; PULSE 75
[2021-10-24 20:27] VITALS: O2SAT 95
--- NOTE | 2021-10-25 08:43 | XRAY ---
Indication: Weakness. COPD. Comparison: October 10, 2021 Portable chest unchanged again inflated and clear with incidental left apical calcified granuloma and focal eventration right hemidiaphragm. Heart not enlarged again with right dialysis catheter. No new/acute findings.
== END 2021-10-24 20:55 | disposition home or self-care (01) ==
LOC: ED 17:07
DX: R53.1 Weakness (principal); R53.83 Other fatigue; I11.0 Hypertensive heart disease with heart failure; I50.9 Heart failure, unspecified; E78.5 Hyperlipidemia, unspecified; Z79.899 Other long term (current) drug therapy
CPT/HCPCS: 36415; 71045; 80053; 81015; 83605; 84145; 84484; 85025; 87040; 96360; 99284

== ENCOUNTER 2021-11-04 10:47 | Observation (INO) | payer MEDICARE ==
--- NOTE | 2021-11-04 11:03 | ERPHSYRPT ---
- History of Present Illness Time Seen by Provider: 11/04/21 11:03 Historian: patient, family Exam Limitations: no limitations Patient Subjective Stated Complaint: PT daughter states "She has had horrible diarrhea since thursday. She is not eating, not drinking and just getting weaker and weaker." Triage Nursing Assessment: PT presented alert and oriented X 3, skin pwd. Pt ambulates with a slow gait, able to speak in clear full setences. PT resting comfortable on the bed. Physician History: This is an 81-year-old obese white female patient who relatively recently had a colostomy reversal. Post her surgery she did have significant diarrhea and tested positive for C. difficile toxin. She has done okay but daughter states she is been increasingly weaker. Beginning 2 days ago, the daughter states that the patient has had significant diarrhea. She is not eating well. Patient denies chest pain. She denies shortness of breath. Patient states that she is a DO NOT RESUSCITATE patient. Patient has a history of CHF, hypertension and hyperlipidemia. Timing/Duration: day(s) (2) Activities at Onset: none Quality: cramping (mild diffuse) Abdominal Pain Onset Location: generalized abdomen Severity of Pain-Max: mild Severity of Pain-Current: mild Modifying Factors: Improves With: nothing Associated Symptoms: diarrhea, loss of appetite, nausea, weakness Previous symptoms: same symptoms as today Allergies/Adverse Reactions: vancomycin Adverse Reaction (Severe, Verified 09/22/21 21:16) pt states causes kidney damage Home Medications: Aspirin EC 81 mg [Ecotrin 81 mg] 81 mg PO DAILY 11/04/18 [History] Furosemide 20 mg [Lasix 20 mg] 40 mg PO DAILY 06/07/19 [History] ALPRAZolam [Alprazolam ER] 0.5 mg PO BID PRN 07/16/19 [History] Atorvastatin Calcium 10 mg PO HS 07/16/19 [History] lisinopriL [Lisinopril] 30 mg PO DAILY 07/16/19 [History] Metoprolol Tartrate 50 mg [Lopressor 50 MG] 50 mg PO DAILY 02/04/20 [History] Hx Tetanus, Diphtheria Vaccination/Date Given: No Hx Influenza Vaccination/Date Given: No Hx Pneumococcal Vaccination/Date Given: No Immunizations Up to Date: Yes Travel Risk - International Travel Have you traveled outside of the country in past 3 weeks: No - Coronavirus Screening Are you exhibiting any of the following symptoms?: No Close contact with a COVID-19 positive Pt in past 14-21 Days: No - Vaccine Status Have you recieved a Covid-19 vaccination: Yes Head Nurse: Moderna - Vaccination Dates Date of 2cond Vaccination (if applicable): unknown - Review of Systems Constitutional: Weakness Eyes: No Symptoms Ears, Nose, & Throat: No Symptoms Respiratory: No Symptoms Cardiac: No Symptoms Abdominal/Gastrointestinal: Abdominal Pain, Nausea, Diarrhea, Appetite Changes Genitourinary Symptoms: No Symptoms Musculoskeletal: No Symptoms Skin: No Symptoms Neurological: No Symptoms Psychological: No Symptoms Endocrine: No Symptoms Hematologic/Lymphatic: No Symptoms Immunological/Allergic: No Symptoms All Other Systems: Reviewed and Negative - Past Medical History Pertinent Past Medical History: Yes Neurological History: No Pertinent History ENT History: Cataracts Cardiac History: Hypertension Respiratory History: No Pertinent History Endocrine Medical History: Adrenal Insufficiency, Other Musculoskeletal History: Osteoarthritis GI Medical History: Diverticulitis, Diverticulosis, GERD, Other History: No Pertinent History Psycho-Social History: No Pertinent History Female Reproductive Disorders: No Pertinent History Other Medical History: Colostomy, R shoulder RTC tear, B TKA. - Past Surgical History Past Surgical History: Yes Neuro Surgical History: No Pertinent History Cardiac: No Pertinent History Respiratory: No Pertinent History Gastrointestinal: Appendectomy, Cholecystectomy, Colon Resection Genitourinary: No Pertinent History Musculoskeletal: Joint Replacement, Orthopedic Surgery Female Surgical History: Hysterectomy Other Surgical History: brittney knees, brittney wrist,. Skin cancer removed from face 2005. colostomy - Social History Smoking Status: Former smoker Exposure to second hand smoke: Yes Alcohol Use: None Drug Use: none Patient Lives Alone: No Significant Family History: no pertinent family hx - Nursing Vital Signs Nursing Vital Signs: Initial Vital Signs Temperature 97.5 F 11/04/21 10:54 Pulse Rate 83 11/04/21 10:54 Respiratory Rate 22 11/04/21 10:54 Blood Pressure 142/72 11/04/21 10:54 O2 Sat by Pulse Oximetry 95 11/04/21 10:54 Pain Scale Pain Intensity 0 - Physical Exam General Appearance: mild distress, alert, obese Eye Exam: PERRL/EOMI, eyes nml inspection Ears, Nose, Throat Exam: normal ENT inspection, dry mucous membranes Neck Exam: normal inspection, non-tender, supple, full range of motion Respiratory Exam: normal breath sounds, lungs clear, airway intact, No chest tenderness, No respiratory distress Cardiovascular Exam: regular rate/rhythm, normal heart sounds, normal peripheral pulses Gastrointestinal/Abdomen Exam: soft, normal bowel sounds, tenderness, No guarding, No rebound Pelvic Exam: not done Rectal Exam: not done Back Exam: normal inspection, normal range of motion, No CVA tenderness, No vertebral tenderness Extremity Exam: normal inspection, normal range of motion, pelvis stable Neurologic Exam: alert, 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, cooperative, trust mail clerk II-XII 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 as tested, normal mood/affect, nml cerebellar function, nml station & gait, sensation nml Skin Exam: normal color, warm, dry Lymphatic Exam: No adenopathy SpO2 Interpretation: normal SpO2: 95 O2 Delivery: Room Air - Course Nursing assessment & vital signs reviewed: Yes Ordered Tests: Active Orders 24 hr Category Date Time Status IV Insertion STAT Care 11/04/21 11:03 Active ABDOMEN AND PELVIS W/0 CONTRAS [CT] Stat Exams 11/04/21 11:04 Completed AMYLASE Stat Lab 11/04/21 11:08 Completed BLOOD CULTURE Stat Lab 11/04/21 11:23 Received CBC W DIFF Stat Lab 11/04/21 11:08 Completed CMP Stat Lab 11/04/21 11:08 Completed CULTURE,URINE Stat Lab 11/04/21 13:19 Received LIPASE Stat Lab 11/04/21 11:08 Completed Lactic Acid Stat Lab 11/04/21 11:08 Completed UA W/RFX CULTURE Stat Lab 11/04/21 13:19 Completed Transfer Order Routine Transfer 11/04/21 Ordered Medication Summary Generic Name Dose Route Start Last Admin Trade Name Freq PRN Reason Stop Dose Admin Sodium Chloride 1,000 mls @ 100 mls/hr 11/04/21 11:15 11/04/21 11:13 Sodium Chloride 0.9% 1000 Ml IV 12/04/21 11:14 100 mls/hr .Q10H OLGA Administration Lab/Rad Data: Laboratory Result Diagrams 11/04/21 11:08 11/04/21 11:08 Laboratory Results 11/04/21 11/04/21 11/04/21 Range/Units 13:19 11:30 11:08 WBC (4.0-10.5) x10^3/uL RBC (4.1-5.4) x10^6/uL Hgb (12.0-16.0) g/dL Hct (35-47) % MCV (78-100) fL MCH (26-32) pg MCHC (32-36) g/dL RDW (11.5-14.0) % Plt Count (150-450) x10^3/uL MPV (7.5-11.0) fL Gran % (36.0-66.0) % Immature Gran % (Auto) (0.00-0.4) % Nucleat RBC Rel Count (0.00-0.1) % Eos # (Auto) (0-0.5) x10^3/uL Immature Gran # (Auto) (0.00-0.03) x10^3u/L Absolute Lymphs (auto) (1.0-4.6) x10^3/uL Absolute Monos (auto) (0.0-1.3) x10^3/uL Absolute Nucleated RBC (0.00-0.01) x10^3u/L Lymphocytes % (24.0-44.0) % Monocytes % (0.0-12.0) % Eosinophils % (0.00-5.0) % Basophils % (0.0-0.4) % Absolute Granulocytes (1.4-6.9) x10^3/uL Basophils # (0-0.4) x10^3/uL Sodium 140 (137-145) mmol/L Potassium 4.1 (3.5-5.1) mmol/L Chloride 109 H (98-107) mmol/L Carbon Dioxide 21 L (22-30) mmol/L Anion Gap 13.9 (5-15) MEQ/L BUN 24 H (7-17) mg/dL Creatinine 1.84 H (0.52-1.04) mg/dL Estimated GFR 28.1 ML/MIN Glucose 104 (74-106) mg/dL Lactic Acid (0.4-2.0) Calcium 8.6 (8.4-10.2) mg/dL Total Bilirubin 0.30 (0.2-1.3) mg/dL AST 17 (14-36) U/L ALT 14 (0-35) U/L Alkaline Phosphatase 64 (38-126) U/L Serum Total Protein 6.2 L (6.3-8.2) g/dL Albumin 3.2 L (3.5-5.0) g/dL Amylase 48 (30-110) U/L Lipase 35 (23-300) U/L Urinalys Dipstick Clnc MAIN LAB Urine Color YELLOW (YELLOW) Urine Appearance SLIGHTLY CLOUDY (CLEAR) Urine pH 5.5 (5-6) Ur Specific [place] 1.025 (1.005-1.025) POC Urine Protein Conf 30 (Negative) Urine Ketones NEGATIVE (NEGATIVE) Urine Nitrite POSITIVE (NEGATIVE) Urine Bilirubin NEGATIVE (NEGATIVE) Urine Urobilinogen 0.2 (0-1) mg/dL Urine Leukocytes MODERATE (NEGATIVE) Urine WBC (Auto) >100 (0-5) /HPF Urine RBC (Auto) 6-10 (0-2) /HPF U Epithel Cells (Auto) RARE (FEW) /HPF Urine Bacteria (Auto) MANY (NEGATIVE) /HPF Urine RBC NEGATIVE (0-5) Jerad/ul Urine Mucus (Auto) SLIGHT (NEGATIVE) /HPF Ur Culture Indicated? YES Urine Glucose NEGATIVE (NEGATIVE) mg/dL Influenza Type A Ag NEGATIVE (NEGATIVE) Influenza Type B Ag NEGATIVE (NEGATIVE) RSV (PCR) NEGATIVE (Negative) SARS-CoV-2 (PCR) NEGATIVE (NEGATIVE) 11/04/21 11/04/21 Range/Units 11:08 11:08 WBC 9.3 (4.0-10.5) x10^3/uL RBC 2.98 L (4.1-5.4) x10^6/uL Hgb 9.3 L (12.0-16.0) g/dL Hct 30.2 L (35-47) % MCV 101.3 H (78-100) fL MCH 31.2 (26-32) pg MCHC 30.8 L (32-36) g/dL RDW 15.0 H (11.5-14.0) % Plt Count 341 (150-450) x10^3/uL MPV 10.4 (7.5-11.0) fL Gran % 74.8 H (36.0-66.0) % Immature Gran % (Auto) 0.9 H (0.00-0.4) % Nucleat RBC Rel Count 0.0 (0.00-0.1) % Eos # (Auto) 0.28 (0-0.5) x10^3/uL Immature Gran # (Auto) 0.08 H (0.00-0.03) x10^3u/L Absolute Lymphs (auto) 0.93 L (1.0-4.6) x10^3/uL Absolute Monos (auto) 0.99 (0.0-1.3) x10^3/uL Absolute Nucleated RBC 0.00 (0.00-0.01) x10^3u/L Lymphocytes % 10.0 L (24.0-44.0) % Monocytes % 10.6 (0.0-12.0) % Eosinophils % 3.0 (0.00-5.0) % Basophils % 0.7 (0.0-0.4) % Absolute Granulocytes 6.99 H (1.4-6.9) x10^3/uL Basophils # 0.07 (0-0.4) x10^3/uL Sodium (137-145) mmol/L Potassium (3.5-5.1) mmol/L Chloride (98-107) mmol/L Carbon Dioxide (22-30) mmol/L Anion Gap (5-15) MEQ/L BUN (7-17) mg/dL Creatinine (0.52-1.04) mg/dL Estimated GFR ML/MIN Glucose (74-106) mg/dL Lactic Acid 1.3 (0.4-2.0) Calcium (8.4-10.2) mg/dL Total Bilirubin (0.2-1.3) mg/dL AST (14-36) U/L ALT (0-35) U/L Alkaline Phosphatase (38-126) U/L Serum Total Protein (6.3-8.2) g/dL Albumin (3.5-5.0) g/dL Amylase (30-110) U/L Lipase (23-300) U/L Urinalys Dipstick Clnc Urine Color (YELLOW) Urine Appearance (CLEAR) Urine pH (5-6) Ur Specific [place] (1.005-1.025) POC Urine Protein Conf (Negative) Urine Ketones (NEGATIVE) Urine Nitrite (NEGATIVE) Urine Bilirubin (NEGATIVE) Urine Urobilinogen (0-1) mg/dL Urine Leukocytes (NEGATIVE) Urine WBC (Auto) (0-5) /HPF Urine RBC (Auto) (0-2) /HPF U Epithel Cells (Auto) (FEW) /HPF Urine Bacteria (Auto) (NEGATIVE) /HPF Urine RBC (0-5) Jerad/ul Urine Mucus (Auto) (NEGATIVE) /HPF Ur Culture Indicated? Urine Glucose (NEGATIVE) mg/dL Influenza Type A Ag (NEGATIVE) Influenza Type B Ag (NEGATIVE) RSV (PCR) (Negative) SARS-CoV-2 (PCR) (NEGATIVE) - Progress Progress: unchanged Progress Note: 11/04/21 12:06 CAT scan of the abdomen pelvis without contrast shows postsurgical changes with intact rectal anastomosis. The remainder of the CAT scan of the abdomen pelvis without contrast is negative. 11/04/21 13:34 Medical decision making: This patient has had C. difficile in the past. We will treat her with intravenous Flagyl per Dr. Quintanilla. We will also hold off on treating the urinary tract infection until the culture comes back. The thinking is we will rehydrate her and the Sapp catheter is in place and therefore the urine flow should improve and then we can more directly treat the urinary tract infection based on the culture and sensitivities. The patient is afebrile. Her white count is normal. Her lactic acid is normal. She is not tachycardic Discussed with Dr.: Ball Counseled pt/family regarding: lab results, diagnosis, rad results - Departure Departure Disposition: Observation Clinical Impression: Diarrhea, Weakness, UTI (urinary tract infection) Condition: Fair Critical Care Time: No Referrals: FRANKI TOBAR MD [Primary Care Provider] - Follow up/PCP as directed
[2021-11-04] MEDS ORDERED: Sodium Chloride 0.9% 1000 ML 1,000 ML ONE (11:11)
[2021-11-04] MEDS ORDERED: Sodium Chloride 0.9% 1000 ML 1,000 ML IV SCH (11:15)
[2021-11-04 11:38] LABS: Absolute Neutrophil Ct (ANC) 6.99 x10^3/uL (1.4-6.9); Basophil (Absolute #) 0.07 x10^3/uL (0-0.4); Eosinophil (Absolute #) 0.28 x10^3/uL (0-0.5); Hematocrit 30.2 % (35-47); Hemoglobin 9.3 g/dL (12.0-16.0); Lymphocyte (Absolute #) 0.93 x10^3/uL (1.0-4.6); Mean Cell Volume 101.3 fL (78-100); Mean Corpuscular Hemoglobin 31.2 pg (26-32); Mean Corpuscular Hgb Concent. 30.8 g/dL (32-36); Mean Platelet Volume 10.4 fL (7.5-11.0); Monocyte (Absolute #) 0.99 x10^3/uL (0.0-1.3); Monocytes % 10.6 % (0.0-12.0); Neutrophil % 74.8 % (36.0-66.0); Platelet Count 341 x10^3/uL (150-450); Red Blood Count 2.98 x10^6/uL (4.1-5.4); White Blood Count 9.3 x10^3/uL (4.0-10.5)
[2021-11-04 11:45] LABS: ALBUMIN 3.2 g/dL (3.5-5.0); ANION GAP 13.9 MEQ/L (5-15); BILIRUBIN,TOTAL 0.3 mg/dL (0.2-1.3); Calcium 8.6 mg/dL (8.4-10.2); Creatinine 1 1.84 mg/dL (0.52-1.04); EST GLOMERULAR FILTRATION RATE 28.1 ML/MIN; Potassium 4.1 mmol/L (3.5-5.1); Total Protein 6.2 g/dL (6.3-8.2)
--- NOTE | 2021-11-04 11:53 | XRAY ---
Indication: Weakness, nausea, and diarrhea. Multiple contiguous axial images obtained through the abdomen and pelvis without contrast. Comparison: September 22 and October 10, 2021 Lung bases again demonstrates bibasilar subsegmental atelectasis/scarring and 5 mm right base noncalcified subpleural nodule. Heart is not enlarged. Stable abdominal wall postsurgical changes with left lower quadrant ZOIE drainage catheter. No free fluid/air. Noncontrasted stomach and bowel loops nonobstructed again with intact rectal anastomosis. Urinary bladder is near empty with Sapp balloon catheter removal. Stable right renal cyst, fatty liver, left renal atrophy, cholecystotomy, and hysterectomy. Remaining liver, pancreas, spleen, adrenal glands, kidneys, ureters, and bladder are unremarkable for noncontrast exam. Again mild aortoiliac calcifications without AAA. Impression: 1. Stable post surgical changes with intact rectal anastomosis and ZOIE drain. 2. Again incidental fatty liver, right renal cyst, left renal atrophy, and arterial sclerotic disease. 3. Remaining CT abdomen/pelvis without contrast exam is again negative
[2021-11-04 12:07] LABS: INFLUENZA A NEGATIVE (NEGATIVE); INFLUENZA B NEGATIVE (NEGATIVE); RESPIRATORY SYNCTIAL VIRUS NEGATIVE (Negative); SARS-CoV-2 Xpert Express NEGATIVE (NEGATIVE)
[2021-11-04 13:19] LABS: Appearance SLIGHTLY CLOUDY (CLEAR); Bilirubin NEGATIVE (NEGATIVE); Dipstick done @ ? MAIN LAB; Glucose NEGATIVE (NEGATIVE); Ketones NEGATIVE (NEGATIVE); Nitrite POSITIVE (NEGATIVE); Ph 5.5 (5-6); Protein,Urine Dip 30 (Negative); RBC NEGATIVE Ery/ul (0-5); Specific Gravity 1.025 (1.005-1.025); Urobilinogen 0.2 mg/dL (0-1)
[2021-11-04 13:23] LABS: Bacteria MANY /HPF (NEGATIVE); Epithelial Cells RARE /HPF (FEW); Mucus SLIGHT /HPF (NEGATIVE); WBC >100 /HPF (0-5)
[2021-11-04 13:26] LABS: Urine Cultured Indicated? YES
[2021-11-04] MEDS ORDERED: TYLENOL 325 MG PO PRN (14:14)
[2021-11-04] MEDS ORDERED: FLAGYL 500 MG IVPB 500 MG/100 ML BAG IV STA (14:14)
[2021-11-04] MEDS ORDERED: FLAGYL 500 MG IVPB 500 MG/100 ML BAG IV SCH (14:30)
[2021-11-04] MEDS ORDERED: FLUZONE HIGH-DOSE QUAD 2022-23 IM ONE (15:00)
[2021-11-04] MEDS ORDERED: ALPRAZOLAM 1 MG PO SCH (17:15)
[2021-11-04] MEDS: Zestril 20 MG PO SCH (17:39)
[2021-11-04] MEDS: ECOTRIN 81 MG PO SCH (17:39)
[2021-11-04] MEDS: ZOLOFT 50 MG TABLET PO SCH (17:40)
[2021-11-04] MEDS: Toprol-Xl 25MG Tablets PO SCH (17:40)
[2021-11-04] MEDS: Apresoline 25 MG TABLET PO SCH (17:40)
[2021-11-04] MEDS: Sodium Chloride 0.9% 1000 ML 1,000 ML IV SCH ×2 (20:45→22:24)
[2021-11-04] MEDS: Aricept 10 MG PO SCH (21:38)
[2021-11-04] MEDS: FEOSOL 325 MG PO SCH (21:38)
[2021-11-04] MEDS ORDERED: NON-FORMULARY ITEM (Donepezil Hcl [Aricept] 5 MG Tablet) PO SCH (22:00)
[2021-11-04] MEDS: Zofran 4 MG/2 ML VIAL IV PRN (22:50)
[2021-11-05] MEDS: FLAGYL 500 MG IVPB 500 MG/100 ML BAG IV SCH ×5 (02:41→21:34)
[2021-11-05 04:41] LABS: Absolute Neutrophil Ct (ANC) 5.43 x10^3/uL (1.4-6.9); Basophil (Absolute #) 0.03 x10^3/uL (0-0.4); Eosinophil % 3.5 % (0.00-5.0); Eosinophil (Absolute #) 0.26 x10^3/uL (0-0.5); Hemoglobin 8.1 g/dL (12.0-16.0); Lymphocyte (Absolute #) 0.65 x10^3/uL (1.0-4.6); Lymphocytes % 8.8 % (24.0-44.0); Mean Cell Volume 102.7 fL (78-100); Mean Corpuscular Hemoglobin 30.8 pg (26-32); Mean Platelet Volume 10.1 fL (7.5-11.0); Monocyte (Absolute #) 0.88 x10^3/uL (0.0-1.3); Neutrophil % 73.8 % (36.0-66.0); Platelet Count 282 x10^3/uL (150-450); Red Blood Count 2.63 x10^6/uL (4.1-5.4); Red Cell Distribution Width 14.9 % (11.5-14.0); White Blood Count 7.4 x10^3/uL (4.0-10.5)
[2021-11-05 04:59] LABS: ALBUMIN 2.7 g/dL (3.5-5.0); ANION GAP 10.3 MEQ/L (5-15); BILIRUBIN,TOTAL 0.2 mg/dL (0.2-1.3); Calcium 7.8 mg/dL (8.4-10.2); Creatinine 1 1.67 mg/dL (0.52-1.04); EST GLOMERULAR FILTRATION RATE 31.4 ML/MIN; Potassium 4.1 mmol/L (3.5-5.1); Total Protein 5.3 g/dL (6.3-8.2)
[2021-11-05] MEDS: Apresoline 25 MG TABLET PO SCH ×4 (06:25→21:34)
[2021-11-05] MEDS: Sodium Chloride 0.9% 1000 ML 1,000 ML IV SCH ×2 (09:06→19:32)
[2021-11-05] MEDS ORDERED: Zestril 5 MG PO SCH (10:00)
[2021-11-05] MEDS: FEOSOL 325 MG PO SCH ×2 (10:03→21:35)
[2021-11-05] MEDS: Zestril 20 MG PO SCH (10:03)
[2021-11-05] MEDS: Toprol-Xl 25MG Tablets PO SCH (10:03)
[2021-11-05] MEDS: ZOLOFT 50 MG TABLET PO SCH (10:03)
--- NOTE | 2021-11-05 17:57 | PCM.HP ---
History of Present Illness - Chief Complaint Chief Complaint: UTI History of Present Illness: is a 81 year old female patient of Dr Lala who was admitted for volume depletion and UTI after several days of diarrhea and Hx Cdiff. Patient was discharged from [facility] S/P colostomy reversal,still has drain present which was to be removed at surgery appt tomorrow.Patient c/o some nausea but no loose stool since admission. States food has a metalic taste and loss of appetite. PMHx as listed . Patient is admitted to [facility] for IV hydration and tx cdiff and UTI,possible placement for Rehab. - Review of Systems Constitutional: Weakness Eyes: No Symptoms Ears, Nose, & Throat: No Symptoms Respiratory: No Symptoms Cardiac: No Symptoms Abdominal/Gastrointestinal: Nausea, Diarrhea Genitourinary Symptoms: Frequency Musculoskeletal: No Symptoms Skin: No Symptoms Neurological: No Symptoms Psychological: No Symptoms Endocrine: No Symptoms Hematologic/Lymphatic: No Symptoms Immunological/Allergic: No Symptoms Medications & Allergies Home Medications: Home Medication List Aspirin EC 81 mg [Ecotrin 81 mg] 81 mg PO DAILY 11/04/18 [History Confirmed 11/04/21] Furosemide 20 mg [Lasix 20 mg] 40 mg PO DAILY 06/07/19 [History Confirmed 11/04/21] ALPRAZolam [Alprazolam ER] 0.25 mg PO BID PRN 07/16/19 [History Confirmed 11/04/21] lisinopriL [Lisinopril] 40 mg PO DAILY 07/16/19 [History Confirmed 11/04/21] Donepezil HCl [Aricept] 5 mg PO QHS 11/04/21 [History Confirmed 11/04/21] Ferrous Sulfate [Iron] 325 mg PO BID 11/04/21 [History Confirmed 11/04/21] Hydralazine HCl 25 mg PO Q8H 11/04/21 [History Confirmed 11/04/21] Metoprolol Succinate 25 mg Xl* [Toprol-Xl 25MG Tablets] 25 mg PO DAILY 11/04/21 [History Confirmed 11/04/21] Prednisone 10 mg [Deltasone 10 mg] 20 mg PO DAILY 11/04/21 [History Confirmed 11/04/21] Sertraline HCl 50 mg [Zoloft 50 mg Tablet] 50 mg PO DAILY 11/04/21 [History Confirmed 11/04/21] Allergies/Adverse Reactions: Allergies Allergy/AdvReac Type Severity Reaction Status Date / Time vancomycin AdvReac Severe Verified 09/22/21 21:16 - Past Medical History Past Medical History: Yes Neurological History: Alzheimer's Disease ENT History: Cataracts Cardiac History: Hypertension Respiratory History: CHF, COPD Endocrine Medical History: Adrenal Insufficiency, Other Musculoskelatal History: Osteoarthritis GI Medical History: Diverticulitis, Diverticulosis, GERD, Other History: Dialysis Pyscho-Social History: Anxiety Reproductive Disorders: No Pertinent History Comment: Colostomy then reversal, R shoulder RTC tear, B TKA. - Female History Are you now?: No - Past Surgical History Past Surgical History: Yes Neuro Surgical History: No Pertinent History Cardiac History: No Pertinent History Respiratory Surgery: No Pertinent History GI Surgical History: Appendectomy, Cholecystectomy, Colon Resection Genitourinary Surgical Hx: No Pertinent History Musculskeletal Surgical Hx: Joint Replacement, Orthopedic Surgery Female Surgical History: Hysterectomy Other Surgical History: brittney knees, brittney wrist,. Skin cancer removed from face 2005. colostomy - Social History Smoking Status: Former smoker Exposure to second hand smoke: No Alcohol: None Drug Use: none Significant Family History: no pertinent family hx - Physical Exam Vital Signs: Vital Signs - 24 hr Temp Pulse Resp BP Pulse Ox 11/05/21 16:00 98.2 F 69 16 104/49 92 L 11/05/21 11:35 98.0 F 71 16 99/49 94 L 11/05/21 07:12 98.1 F 66 16 129/60 91 L 11/05/21 04:00 96.9 F 71 17 125/55 91 L 11/05/21 00:00 98.7 F 84 14 119/58 94 L 11/04/21 19:07 97.5 F 76 16 126/61 90 L General Appearance: no apparent distress Neurologic Exam: alert, 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, cooperative, normal mood/affect Eye Exam: eyes nml inspection Ears, Nose, Throat Exam: normal ENT inspection Neck Exam: normal inspection Respiratory Exam: normal breath sounds Cardiovascular Exam: regular rate/rhythm, murmur Gastrointestinal/Abdomen Exam: soft, normal bowel sounds (nontender), other (drain present left abdomen) Pelvic Exam: not done Rectal Exam: not done Back Exam: normal inspection Extremity Exam: normal inspection Results - Labs Lab/Micro Results: Lab Results-Last 24 Hours 11/05/21 11/05/21 Range/Units 04:25 04:25 WBC 7.4 (4.0-10.5) x10^3/uL RBC 2.63 L (4.1-5.4) x10^6/uL Hgb 8.1 L (12.0-16.0) g/dL Hct 27.0 L (35-47) % MCV 102.7 H (78-100) fL MCH 30.8 (26-32) pg MCHC 30.0 L (32-36) g/dL RDW 14.9 H (11.5-14.0) % Plt Count 282 (150-450) x10^3/uL MPV 10.1 (7.5-11.0) fL Gran % 73.8 H (36.0-66.0) % Immature Gran % (Auto) 1.5 H (0.00-0.4) % Nucleat RBC Rel Count 0.0 (0.00-0.1) % Eos # (Auto) 0.26 (0-0.5) x10^3/uL Immature Gran # (Auto) 0.11 H (0.00-0.03) x10^3u/L Absolute Lymphs (auto) 0.65 L (1.0-4.6) x10^3/uL Absolute Monos (auto) 0.88 (0.0-1.3) x10^3/uL Absolute Nucleated RBC 0.00 (0.00-0.01) x10^3u/L Lymphocytes % 8.8 L (24.0-44.0) % Monocytes % 12.0 (0.0-12.0) % Eosinophils % 3.5 (0.00-5.0) % Basophils % 0.4 (0.0-0.4) % Absolute Granulocytes 5.43 (1.4-6.9) x10^3/uL Basophils # 0.03 (0-0.4) x10^3/uL Sodium 140 (137-145) mmol/L Potassium 4.1 (3.5-5.1) mmol/L Chloride 112 H (98-107) mmol/L Carbon Dioxide 22 (22-30) mmol/L Anion Gap 10.3 (5-15) MEQ/L BUN 22 H (7-17) mg/dL Creatinine 1.67 H (0.52-1.04) mg/dL Estimated GFR 31.4 ML/MIN Glucose 92 (74-106) mg/dL Calcium 7.8 L (8.4-10.2) mg/dL Total Bilirubin 0.20 (0.2-1.3) mg/dL AST 17 (14-36) U/L ALT 12 (0-35) U/L Alkaline Phosphatase 51 (38-126) U/L NT-Pro-B Natriuret Pep 1950 H (0-1800) pg/mL Serum Total Protein 5.3 L (6.3-8.2) g/dL Albumin 2.7 L (3.5-5.0) g/dL Microbiology 11/04/21 13:19 Urine Culture - Preliminary Urine, Void GRAM NEGATIVE ID AND SENSITIVITY PENDING - Radiology Impressions Radiology Exams & Impressions: Radiology Procedures Category Date Time Status ABDOMEN AND PELVIS W/0 CONTRAS [CT] Stat Exams 11/04/21 11:04 Completed Assessment/Plan (1) Diarrhea Current Visit: Yes Status: Acute Assessment & Plan: ER reported Cdiff toxin positive- started Flagyl Code(s): R19.7 - DIARRHEA, UNSPECIFIED (2) Weakness Current Visit: Yes Status: Acute Assessment & Plan: volume depletion and deconditioning - Rehab stay would be benificial Code(s): R53.1 - WEAKNESS (3) UTI (urinary tract infection) Current Visit: Yes Status: Acute Qualifiers: Assessment & Plan: culture pending gram negative , await ID for antibiotic selection (no elevatesd WBC or fever) Code(s): N39.0 - URINARY TRACT INFECTION, SITE NOT SPECIFIED (4) Hypertension Current Visit: No Status: Chronic Assessment & Plan: monitor Code(s): I10 - ESSENTIAL (PRIMARY) HYPERTENSION (5) Alzheimer disease Current Visit: Yes Status: Suspected Assessment & Plan: per Hx and is on meds-continue Code(s): G30.9 - ALZHEIMER'S DISEASE, UNSPECIFIED; F02.80 - DEMENTIA IN OTH DISEASES CLASSD ELSWHR W/O BEHAVRL DISTURB
[2021-11-05] MEDS: Aricept 10 MG PO SCH (21:35)
[2021-11-05] MEDS: Zofran 4 MG/2 ML VIAL IV PRN (22:22)
[2021-11-06] MEDS: FLAGYL 500 MG IVPB 500 MG/100 ML BAG IV SCH ×4 (03:57→19:10)
[2021-11-06] MEDS: Apresoline 25 MG TABLET PO SCH ×3 (05:54→21:06)
[2021-11-06] MEDS: Sodium Chloride 0.9% 1000 ML 1,000 ML IV SCH ×2 (05:54→19:51)
[2021-11-06] MEDS ORDERED: PHARMACY DOSING REQUEST MC ONE (07:05)
[2021-11-06 07:28] LABS: Absolute Neutrophil Ct (ANC) 6.16 x10^3/uL (1.4-6.9); Basophil (Absolute #) 0.05 x10^3/uL (0-0.4); Eosinophil % 3.5 % (0.00-5.0); Eosinophil (Absolute #) 0.29 x10^3/uL (0-0.5); Hematocrit 27.4 % (35-47); Hemoglobin 8.1 g/dL (12.0-16.0); Lymphocyte (Absolute #) 0.62 x10^3/uL (1.0-4.6); Lymphocytes % 7.5 % (24.0-44.0); Mean Cell Volume 104.2 fL (78-100); Mean Corpuscular Hemoglobin 30.8 pg (26-32); Mean Corpuscular Hgb Concent. 29.6 g/dL (32-36); Monocyte (Absolute #) 0.98 x10^3/uL (0.0-1.3); Monocytes % 11.9 % (0.0-12.0); Neutrophil % 74.7 % (36.0-66.0); Platelet Count 261 x10^3/uL (150-450); Red Blood Count 2.63 x10^6/uL (4.1-5.4); White Blood Count 8.3 x10^3/uL (4.0-10.5)
[2021-11-06 07:39] LABS: ALBUMIN 2.8 g/dL (3.5-5.0); ANION GAP 12.2 MEQ/L (5-15); BILIRUBIN,TOTAL 0.2 mg/dL (0.2-1.3); Calcium 7.8 mg/dL (8.4-10.2); Creatinine 1 1.45 mg/dL (0.52-1.04); EST GLOMERULAR FILTRATION RATE 36.9 ML/MIN; Potassium 4.2 mmol/L (3.5-5.1); Total Protein 5.4 g/dL (6.3-8.2)
[2021-11-06] MEDS: Zofran 4 MG/2 ML VIAL IV PRN ×3 (08:38→21:10)
[2021-11-06] MEDS: ECOTRIN 81 MG PO SCH (09:33)
[2021-11-06] MEDS: BACTRIM DS TABLET PO SCH ×2 (09:34→21:07)
[2021-11-06] MEDS: ZOLOFT 50 MG TABLET PO SCH (09:34)
[2021-11-06] MEDS: FEOSOL 325 MG PO SCH ×2 (09:35→21:07)
[2021-11-06] MEDS: Toprol-Xl 25MG Tablets PO SCH (09:35)
[2021-11-06] MEDS: Zestril 20 MG PO SCH (09:35)
[2021-11-06] MEDS: Lasix 40 MG PO SCH (09:41)
[2021-11-06] MEDS: Aricept 10 MG PO SCH (21:06)
[2021-11-07] MEDS: Sodium Chloride 0.9% 1000 ML 1,000 ML IV SCH (00:13)
[2021-11-07] MEDS: xanAX 0.25 MG PO PRN ×2 (00:18→10:08)
[2021-11-07] MEDS: FLAGYL 500 MG IVPB 500 MG/100 ML BAG IV SCH ×3 (01:14→13:51)
[2021-11-07] MEDS: Zofran 4 MG/2 ML VIAL IV PRN ×2 (02:38→06:39)
[2021-11-07 05:13] LABS: Hematocrit 26.7 % (35-47); Hemoglobin 7.9 g/dL (12.0-16.0); Mean Cell Volume 103.1 fL (78-100); Mean Corpuscular Hemoglobin 30.5 pg (26-32); Mean Corpuscular Hgb Concent. 29.6 g/dL (32-36); Mean Platelet Volume 10.3 fL (7.5-11.0); Platelet Count 258 x10^3/uL (150-450); Red Blood Count 2.59 x10^6/uL (4.1-5.4); Red Cell Distribution Width 15.1 % (11.5-14.0)
[2021-11-07] MEDS: Apresoline 25 MG TABLET PO SCH ×2 (05:42→14:13)
[2021-11-07 05:46] LABS: ANION GAP 8.4 MEQ/L (5-15); Calcium 7.8 mg/dL (8.4-10.2); Creatinine 1 1.65 mg/dL (0.52-1.04); EST GLOMERULAR FILTRATION RATE 31.8 ML/MIN; Potassium 4.1 mmol/L (3.5-5.1)
[2021-11-07] MEDS ORDERED: PHENERGAN 25 MG PO PRN (08:17)
[2021-11-07 09:27] LABS: 027 TOX PROD PRESUMPTIVE POSITIVE (NEGATIVE)
[2021-11-07 09:29] LABS: TOXIGENIC C. DIFF ORG POSITIVE (NEGATIVE)
[2021-11-07] MEDS: BACTRIM DS TABLET PO SCH (09:55)
[2021-11-07] MEDS: ZOLOFT 50 MG TABLET PO SCH (12:44)
[2021-11-07] MEDS: FEOSOL 325 MG PO SCH (12:44)
[2021-11-07] MEDS: ECOTRIN 81 MG PO SCH (12:44)
[2021-11-07] MEDS: Toprol-Xl 25MG Tablets PO SCH (13:49)
[2021-11-07] MEDS: Zestril 20 MG PO SCH (13:49)
[2021-11-07] MEDS: Lasix 40 MG PO SCH (13:49)
[2021-11-07 15:06] VITALS: BP 128/61; PULSE 74; O2SAT 94
--- NOTE | 2021-11-23 10:12 | PCM.DS ---
Discharge Summary Date of Admission: 11/04/21 13:53 Date of Discharge: 11/07/21 Admitting Physician: GEOVANNA ARGUELLO DO Primary Care Provider: FRANKI TOBAR Allergies Allergies vancomycin Adverse Reaction (Severe, Verified 09/22/21 21:16) pt states causes kidney damage Hospital Summary - Hospital Course Hospital Course: Pt. admitted for persistent diarrhea, abdominal discomfort, pt. also noted to have UTI, by 11/06 pt appeared better but on am of 11/07 general appearance was worsened pt. feeling more weak, hgb had continued to drop and increased cloudy fluid from the BRANDON noted, with recent abdominal surgery, pt. was felt to be better served under the supervision and further evaluated by her surgeon for worsening post-operative situation. Pt. transferred to her surgeon/ financial services agent for further evaluation and treatment. - Vitals & Intake/Output Vital Signs: Vital Signs Temperature 98.3 F 11/07/21 15:06 Pulse Rate 74 11/07/21 15:06 Respiratory Rate 15 11/07/21 15:06 Blood Pressure 128/61 11/07/21 15:06 O2 Sat by Pulse Oximetry 94 L 11/07/21 15:06 - Lab Result Diagrams: 11/07/21 04:45 11/07/21 04:45 Micro Results-Entire Visit: Microbiology 11/04/21 11:23 Blood Culture Gram Stain - Final Blood Blood Culture - Final Coagulase Negative Staph. Possible Contaminant. Clinical judgement required. No further workup performed. 11/06/21 Unknown Food Packer Culture - Final Brandon Drain Staphylococcus Epidermidis 11/04/21 11:18 Blood Culture Gram Stain - Final Blood Not Reportable Blood Culture - Final NO GROWTH 11/04/21 13:19 Urine Culture - Final Urine, Void Klebsiella Pneumoniae - Procedures and Test Procedures and Tests throughout Hospitalization: Therapy Orders & Screens 11/04/21 14:58 OT Screen per Nursing Assess ONCE Comment: Protocol Order Physician Instructions: Greater than 3 points order OT Admission Screening Reason For Exam: Triggered on Admission Diagnosis: UTI Open Wound/Cellutlitis/Pressure Ulcers: No Acute Fx/ORIF/Change in wt bearing status: No Severe MUSCULOSKELETAL pain: No ADL Dysfunction: Yes Acute CVA w/Hemiparesis/Hemiplegia: No Decreased Functional Mobility/Strength: Yes Sprain/Strain: No Acute Post-op Mobility Dysfunction: No Total Points: 4 PT Screen per Nursing Assess ONCE Comment: Protocol Order Physician Instructions: Greater than 3 points order PT Admission Screenin Reason For Exam: Triggered on Admission Diagnosis: UTI Open Wound/Cellutlitis/Pressure Ulcers: No Acute Fx/ORIF/Change in wt bearing status: No Severe MUSCULOSKELETAL pain: No ADL Dysfunction: Yes Acute CVA w/Hemiparesis/Hemiplegia: No Decreased Functional Mobility/Strength: Yes Sprain/Strain: No Acute Post-op Mobility Dysfunction: No Total Points: 4 11/05/21 11:34 PT Eval & Treat (MD Order) ONCE Reason for Eval:: WEAKNESS, NH PLACEMENT Diagnosis: UTI Discharge Exam General Appearance: no apparent distress (noted worsening of brandon drainage of fluid and dropping of hgb), alert Neurologic Exam: alert, 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, cooperative, normal mood/affect, nml cerebellar function, sensation nml, No motor deficits Eye Exam: PERRL, EOMI, eyes nml inspection Ears, Nose, Throat Exam: normal ENT inspection, pharynx normal, moist mucous membranes Neck Exam: normal inspection, non-tender, supple, full range of motion Respiratory Exam: normal breath sounds, lungs clear, No respiratory distress Cardiovascular Exam: regular rate/rhythm, normal heart sounds Gastrointestinal/Abdomen Exam: soft, No tenderness, No mass Pelvic Exam: deferred Rectal Exam: deferred Back Exam: normal inspection, normal range of motion, No CVA tenderness, No vertebral tenderness Extremity Exam: normal inspection, normal range of motion Skin Exam: normal color, warm, dry Final Diagnosis/Problem List - Final Discharge Diagnosis/Problem (1) Abdominal pain Status: Acute Code(s): R10.9 - UNSPECIFIED ABDOMINAL PAIN (2) Acute UTI Status: Acute Code(s): N39.0 - URINARY TRACT INFECTION, SITE NOT SPECIFIED (3) C. difficile colitis Status: Acute Code(s): A04.72 - ENTEROCOLITIS D/T CLOSTRIDIUM DIFFICILE, NOT SPCF RECUR (4) Generalized weakness Status: Acute Code(s): R53.1 - WEAKNESS (5) Pelvic fluid collection Status: Chronic Code(s): R18.8 - OTHER ASCITES - Discharge Discharge Date: 11/07/21 Disposition: DC TO [facility] Condition: Fair Prescriptions: No Action Aspirin EC 81 mg [Ecotrin 81 mg] 81 mg PO DAILY Furosemide 20 mg [Lasix 20 mg] 40 mg PO DAILY lisinopriL [Lisinopril] 40 mg PO DAILY ALPRAZolam [Alprazolam ER] 0.25 mg PO BID PRN Sertraline HCl 50 mg [Zoloft 50 mg Tablet] 50 mg PO DAILY Prednisone 10 mg [Deltasone 10 mg] 20 mg PO DAILY Metoprolol Succinate 25 mg Xl* [Toprol-Xl 25MG Tablets] 25 mg PO DAILY Hydralazine HCl 25 mg PO Q8H Ferrous Sulfate [Iron] 325 mg PO BID Donepezil HCl [Aricept] 5 mg PO QHS Forms: Ambulance Transport Record, Transfer Record Inter-Agency
== END 2021-11-07 16:00 | disposition home or self-care (01) ==
LOC: ED 10:47 → MED SURG 13:53
PROVIDERS: ADMIT Family Medicine; ATTEND Family Medicine
DX: R10.9 Unspecified abdominal pain (principal); R19.7 Diarrhea, unspecified; N39.0 Urinary tract infection, site not specified; R53.1 Weakness; A04.72 Enterocolitis due to Clostridium difficile, not specified as recurrent; R18.8 Other ascites; E86.0 Dehydration; I10 Essential (primary) hypertension; G30.9 Alzheimer's disease, unspecified; Z79.899 Other long term (current) drug therapy; Z20.828 Contact with and (suspected) exposure to other viral communicable diseases; Z48.815 Encounter for surgical aftercare following surgery on the digestive system
CPT/HCPCS: 0241U; 36000; 36415; 74176; 80048; 80053; 81015; 82150; 83605; 83690; 83880; 85025; 85027; 87040; 87070; 87077; 87086; 87186; 87493; 97161; 99284; G0008; G0328; G0378; 82274; 90662; J2405; A9270-GY

== ENCOUNTER 2021-12-24 09:45 | Inpatient (IN) | payer MEDICARE ==
[2021-12-24] MEDS ORDERED: MORPHINE SULFATE 2 MG INJ IV ONE (10:05)
[2021-12-24] MEDS ORDERED: MORPHINE SULFATE 2 MG INJ ONE (10:08)
--- NOTE | 2021-12-24 10:14 | ERPHSYRPT ---
- History of Present Illness Time Seen by Provider: 12/24/21 10:00 Source: patient Exam Limitations: no limitations Patient Subjective Stated Complaint: Pt states "I had a ct of my belly and they told me to get to the hospital." Triage Nursing Assessment: Pt presented alert and oriented X3, skin pwd. Pt ambulates with an upright steady giat. PT abdomen is swollen and tender. PT short of breath when she moves. Physician History: Patient is a 81-year-old female presents emergency department with her daughter as a referral from primary care physician for evaluation of a large anterior abdominal wall fluid collection observed on today's CAT scan. Patient had abdominal surgery in August 2021. Patient had a colostomy removed and 2 hernias repaired. Over the past week patient developed rapidly enlarging abdomen. This complaint prompted the CAT scan which was performed today. The CAT scan revealed a 11.9 x 18.5 x 23.6 cm fluid collection at the anterior abdominal wall. CAT scan also observed diffuse fecal stasis fatty liver right renal cyst left renal atrophy chronic bony findings and arterial sclerotic disease. Patient requesting to be transferred to [facility] to see her surgeon Dr. Spears. We contacted Dr. Spears who accepted transfer. We are currently working on a bed assignment. Patient has no other complaints. No chest pain or shortness of breath. No nausea vomiting or diaphoresis. Patient is not on blood thinners. Patient's last meal was this morning. Patient had a sandwich. Patient will be made n.p.o. as of now. Daughter at bedside. They voiced no other complaints or concerns at this time. Portions of this note were created with voice recognition technology. There may be grammatical, spelling, punctuation or sound alike errors Timing/Duration: day(s) (1 week) Severity: moderate Modifying Factors: Improves With: nothing Associated Symptoms: abdominal pain (Mild generalized abdominal pain.) Allergies/Adverse Reactions: vancomycin Adverse Reaction (Severe, Verified 09/22/21 21:16) pt states causes kidney damage Home Medications: Aspirin EC 81 mg [Ecotrin 81 mg] 81 mg PO DAILY 11/04/18 [History] Furosemide 20 mg [Lasix 20 mg] 40 mg PO DAILY 06/07/19 [History] ALPRAZolam [Alprazolam ER] 0.25 mg PO BID PRN 07/16/19 [History] lisinopriL [Lisinopril] 40 mg PO DAILY 07/16/19 [History] Donepezil HCl [Aricept] 5 mg PO QHS 11/04/21 [History] Ferrous Sulfate [Iron] 325 mg PO BID 11/04/21 [History] Hydralazine HCl 25 mg PO Q8H 11/04/21 [History] Metoprolol Succinate 25 mg Xl* [Toprol-Xl 25MG Tablets] 25 mg PO DAILY 11/04/21 [History] Prednisone 10 mg [Deltasone 10 mg] 20 mg PO DAILY 11/04/21 [History] Sertraline HCl 50 mg [Zoloft 50 mg Tablet] 50 mg PO DAILY 11/04/21 [History] Hx Tetanus, Diphtheria Vaccination/Date Given: No Hx Influenza Vaccination/Date Given: No Hx Pneumococcal Vaccination/Date Given: No Immunizations Up to Date: Yes Travel Risk - International Travel Have you traveled outside of the country in past 3 weeks: No - Coronavirus Screening Are you exhibiting any of the following symptoms?: No Close contact with a COVID-19 positive Pt in past 14-21 Days: No - Vaccine Status Have you recieved a Covid-19 vaccination: Yes Implant Coordinator: Moderna - Vaccination Dates Date of 2cond Vaccination (if applicable): unknown - Review of Systems Constitutional: No Symptoms, No Fever, No Chills Eyes: No Symptoms Ears, Nose, & Throat: No Symptoms Respiratory: No Symptoms, No Cough, No Dyspnea Cardiac: No Symptoms, No Chest Pain, No Edema, No Syncope Abdominal/Gastrointestinal: No Symptoms, No Abdominal Pain, No Nausea, No Vomiting, No Diarrhea Genitourinary Symptoms: No Symptoms, No Dysuria Musculoskeletal: No Symptoms, No Back Pain, No Neck Pain Skin: No Symptoms, No Rash Neurological: No Symptoms, No Dizziness, No Focal Weakness, No Sensory Changes Psychological: No Symptoms Endocrine: No Symptoms Hematologic/Lymphatic: No Symptoms Immunological/Allergic: No Symptoms All Other Systems: Reviewed and Negative - Past Medical History Pertinent Past Medical History: Yes Neurological History: Alzheimer's Disease ENT History: Cataracts Cardiac History: Hypertension Respiratory History: CHF, COPD Endocrine Medical History: Adrenal Insufficiency, Other Musculoskeletal History: Osteoarthritis GI Medical History: Diverticulitis, Diverticulosis, GERD, Other History: Dialysis Psycho-Social History: Anxiety Female Reproductive Disorders: No Pertinent History Other Medical History: Colostomy then reversal, R shoulder RTC tear, B TKA. - Past Surgical History Past Surgical History: Yes Neuro Surgical History: No Pertinent History Cardiac: No Pertinent History Respiratory: No Pertinent History Gastrointestinal: Appendectomy, Cholecystectomy, Colon Resection Genitourinary: No Pertinent History Musculoskeletal: Joint Replacement, Orthopedic Surgery Female Surgical History: Hysterectomy Other Surgical History: brittney knees, brittney wrist,. Skin cancer removed from face 2005. colostomy - Social History Smoking Status: Former smoker Exposure to second hand smoke: No Alcohol Use: None Drug Use: none Patient Lives Alone: Yes Significant Family History: no pertinent family hx - Nursing Vital Signs Nursing Vital Signs: Initial Vital Signs Temperature 97.1 F 12/24/21 09:51 Pulse Rate 110 H 12/24/21 09:51 Respiratory Rate 24 12/24/21 09:51 Blood Pressure 159/81 12/24/21 09:51 O2 Sat by Pulse Oximetry 98 12/24/21 09:51 Pain Scale Pain Intensity 0 - Physical Exam General Appearance: no apparent distress, alert Eye Exam: PERRL/EOMI, eyes nml inspection Ears, Nose, Throat Exam: normal ENT inspection, TMs normal, pharynx normal, moist mucous membranes Neck Exam: normal inspection, non-tender, supple, full range of motion Respiratory Exam: normal breath sounds, lungs clear, airway intact, No respiratory distress Cardiovascular Exam: regular rate/rhythm, normal heart sounds, normal peripheral pulses Gastrointestinal/Abdomen Exam: soft, normal bowel sounds, other (Well-healed postsurgical scars. Abdomen appears distended. Overlying soft tissue intact. No signs of trauma.), No tenderness, No mass Back Exam: normal inspection, normal range of motion, No CVA tenderness, No vertebral tenderness Extremity Exam: normal inspection, normal range of motion, pelvis stable Neurologic Exam: alert, 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, cooperative, normal mood/affect, nml cerebellar function, nml station & gait, sensation nml, No motor deficits Skin Exam: normal color, warm, dry, No rash Lymphatic Exam: No adenopathy SpO2 Interpretation: normal SpO2: 98 O2 Delivery: Room Air - Course Nursing assessment & vital signs reviewed: Yes Ordered Tests: Active Orders 24 hr Category Date Time Status IV Insertion STAT Care 12/24/21 10:05 Active NPO Diet 12/24/21 10:06 Active CBC W DIFF Stat Lab 12/24/21 10:09 Completed CMP Stat Lab 12/24/21 10:09 Completed CULTURE,URINE Stat Lab 12/24/21 10:07 Received LIPASE Stat Lab 12/24/21 10:09 Completed PROTIME WITH INR Stat Lab 12/24/21 10:09 Completed PTT Stat Lab 12/24/21 10:09 Completed UA W/RFX CULTURE Stat Lab 12/24/21 10:07 Completed Transfer Order Routine Transfer 12/24/21 Ordered Medication Summary Generic Name Dose Route Start Last Admin Trade Name Freq PRN Reason Stop Dose Admin Sodium Chloride 1,000 mls @ 50 mls/hr 12/24/21 10:15 12/24/21 10:10 Sodium Chloride 0.9% 1000 Ml IV 01/23/22 10:14 50 mls/hr .Q20H OLGA Administration Discontinued Medications Generic Name Dose Route Start Last Admin Trade Name Freq PRN Reason Stop Dose Admin Ceftriaxone Sodium/Dextrose 1 g in 50 mls @ 100 mls/hr 12/24/21 11:01 12/24/21 11:38 Rocephin 1 Gm-D5w 50 Ml Bag IV 12/24/21 11:30 Infused STAT STA Infusion Ceftriaxone Sodium/Dextrose Confirm 12/24/21 11:04 Rocephin 1 Gm-D5w 50 Ml Bag Administered 12/24/21 11:05 Dose 1 g in 50 mls @ ud IV .STK-MED ONE Morphine Sulfate 2 mg 12/24/21 10:05 12/24/21 10:10 Morphine Sulfate 2 Mg/Ml Inj IV 12/24/21 10:06 2 mg STAT ONE Administration Morphine Sulfate Confirm 12/24/21 10:08 Morphine Sulfate 2 Mg/Ml Inj Administered 12/24/21 10:09 Dose 2 mg .ROUTE .STK-MED ONE Lab/Rad Data: Laboratory Result Diagrams 12/24/21 10:09 12/24/21 10:09 Laboratory Results 12/24/21 12/24/21 12/24/21 Range/Units 10:21 10:09 10:09 WBC (4.0-10.5) x10^3/uL RBC (4.1-5.4) x10^6/uL Hgb (12.0-16.0) g/dL Hct (35-47) % MCV (78-100) fL MCH (26-32) pg MCHC (32-36) g/dL RDW (11.5-14.0) % Plt Count (150-450) x10^3/uL MPV (7.5-11.0) fL Gran % (36.0-66.0) % Immature Gran % (Auto) (0.00-0.4) % Nucleat RBC Rel Count (0.00-0.1) % Eos # (Auto) (0-0.5) x10^3/uL Immature Gran # (Auto) (0.00-0.03) x10^3u/L Absolute Lymphs (auto) (1.0-4.6) x10^3/uL Absolute Monos (auto) (0.0-1.3) x10^3/uL Absolute Nucleated RBC (0.00-0.01) x10^3u/L Lymphocytes % (24.0-44.0) % Monocytes % (0.0-12.0) % Eosinophils % (0.00-5.0) % Basophils % (0.0-0.4) % Absolute Granulocytes (1.4-6.9) x10^3/uL Basophils # (0-0.4) x10^3/uL PT 11.3 (9.4-12.5) SECONDS INR 1.07 (0.8-3.0) APTT 29.7 (25.1-36.5) SECONDS Sodium 138 (137-145) mmol/L Potassium 4.1 (3.5-5.1) mmol/L Chloride 102 (98-107) mmol/L Carbon Dioxide 27 (22-30) mmol/L Anion Gap 13.2 (5-15) MEQ/L BUN 23 H (7-17) mg/dL Creatinine 1.28 H (0.52-1.04) mg/dL Estimated GFR 42.6 ML/MIN Glucose 172 H (74-106) mg/dL Calcium 8.9 (8.4-10.2) mg/dL Total Bilirubin 0.50 (0.2-1.3) mg/dL AST 17 (14-36) U/L ALT 16 (0-35) U/L Alkaline Phosphatase 76 (38-126) U/L Serum Total Protein 6.6 (6.3-8.2) g/dL Albumin 3.9 (3.5-5.0) g/dL Lipase 63 (23-300) U/L Urinalys Dipstick Clnc Urine Color (YELLOW) Urine Appearance (CLEAR) Urine pH (5-6) Ur Specific Nursery (1.005-1.025) POC Urine Protein Conf (Negative) Urine Ketones (NEGATIVE) Urine Nitrite (NEGATIVE) Urine Bilirubin (NEGATIVE) Urine Urobilinogen (0-1) mg/dL Urine Leukocytes (NEGATIVE) Urine WBC (Auto) (0-5) /HPF Urine RBC (Auto) (0-2) /HPF U Epithel Cells (Auto) (FEW) /HPF Urine Bacteria (Auto) (NEGATIVE) /HPF Urine RBC (0-5) Jerad/ul Urine Mucus (Auto) (NEGATIVE) /HPF Ur Culture Indicated? Urine Glucose (NEGATIVE) mg/dL Influenza Type A Ag NEGATIVE (NEGATIVE) Influenza Type B Ag NEGATIVE (NEGATIVE) RSV (PCR) NEGATIVE (Negative) SARS-CoV-2 (PCR) NEGATIVE (NEGATIVE) 12/24/21 12/24/21 Range/Units 10:09 10:07 WBC 12.7 H (4.0-10.5) x10^3/uL RBC 3.26 L (4.1-5.4) x10^6/uL Hgb 9.7 L (12.0-16.0) g/dL Hct 31.4 L (35-47) % MCV 96.3 (78-100) fL MCH 29.8 (26-32) pg MCHC 30.9 L (32-36) g/dL RDW 14.9 H (11.5-14.0) % Plt Count 256 (150-450) x10^3/uL MPV 9.8 (7.5-11.0) fL Gran % 80.7 H (36.0-66.0) % Immature Gran % (Auto) 0.6 H (0.00-0.4) % Nucleat RBC Rel Count 0.0 (0.00-0.1) % Eos # (Auto) 0.40 (0-0.5) x10^3/uL Immature Gran # (Auto) 0.08 H (0.00-0.03) x10^3u/L Absolute Lymphs (auto) 1.04 (1.0-4.6) x10^3/uL Absolute Monos (auto) 0.86 (0.0-1.3) x10^3/uL Absolute Nucleated RBC 0.00 (0.00-0.01) x10^3u/L Lymphocytes % 8.2 L (24.0-44.0) % Monocytes % 6.8 (0.0-12.0) % Eosinophils % 3.2 (0.00-5.0) % Basophils % 0.5 (0.0-0.4) % Absolute Granulocytes 10.24 H (1.4-6.9) x10^3/uL Basophils # 0.06 (0-0.4) x10^3/uL PT (9.4-12.5) SECONDS INR (0.8-3.0) APTT (25.1-36.5) SECONDS Sodium (137-145) mmol/L Potassium (3.5-5.1) mmol/L Chloride (98-107) mmol/L Carbon Dioxide (22-30) mmol/L Anion Gap (5-15) MEQ/L BUN (7-17) mg/dL Creatinine (0.52-1.04) mg/dL Estimated GFR ML/MIN Glucose (74-106) mg/dL Calcium (8.4-10.2) mg/dL Total Bilirubin (0.2-1.3) mg/dL AST (14-36) U/L ALT (0-35) U/L Alkaline Phosphatase (38-126) U/L Serum Total Protein (6.3-8.2) g/dL Albumin (3.5-5.0) g/dL Lipase (23-300) U/L Urinalys Dipstick Clnc MAIN LAB Urine Color YELLOW (YELLOW) Urine Appearance CLEAR (CLEAR) Urine pH 6.0 (5-6) Ur Specific Nursery 1.025 (1.005-1.025) POC Urine Protein Conf TRACE A (Negative) Urine Ketones NEGATIVE (NEGATIVE) Urine Nitrite NEGATIVE (NEGATIVE) Urine Bilirubin NEGATIVE (NEGATIVE) Urine Urobilinogen 0.2 (0-1) mg/dL Urine Leukocytes MODERATE A (NEGATIVE) Urine WBC (Auto) >100 A (0-5) /HPF Urine RBC (Auto) 6-10 A (0-2) /HPF U Epithel Cells (Auto) RARE (FEW) /HPF Urine Bacteria (Auto) MODERATE A (NEGATIVE) /HPF Urine RBC TRACE-INTACT A (0-5) Jerad/ul Urine Mucus (Auto) SLIGHT A (NEGATIVE) /HPF Ur Culture Indicated? YES Urine Glucose NEGATIVE (NEGATIVE) mg/dL Influenza Type A Ag (NEGATIVE) Influenza Type B Ag (NEGATIVE) RSV (PCR) (Negative) SARS-CoV-2 (PCR) (NEGATIVE) - Progress Progress: improved Progress Note: Patient reassessed. She is resting comfortably. Pain well controlled. We attempted to transfer patient [facility]. However they have no beds available. Patient accepted by Dr. Spears. Dr. Montejo hospitalist accepts transfer as well. Patient agrees to transfer to [facility]. We will admit patient to floor pending transfer to [place]. Case discussed with Dr. Tobar accepts admission. Work-up in our ED reveals a urinary tract infection. Patient received a dose of Rocephin in our ED. Admit orders entered. Patient voices no other complaints or concerns at this time. Portions of this note were created with voice recognition technology. There may be grammatical, spelling, punctuation or sound alike errors 12/24/21 11:51 Discussed with : Indy Will see patient in: hospital (observation) Counseled pt/family regarding: lab results, diagnosis - Departure Departure Disposition: Home Clinical Impression: Abdominal wall fluid collections, Leukocytosis, Urinary tract infection Condition: Stable Critical Care Time: No Referrals: FRANKI TOBAR MD [Primary Care Provider] - Follow up/PCP as directed
[2021-12-24 10:15] LABS: Absolute Neutrophil Ct (ANC) 10.24 x10^3/uL (1.4-6.9); Basophil (Absolute #) 0.06 x10^3/uL (0-0.4); Eosinophil % 3.2 % (0.00-5.0); Hematocrit 31.4 % (35-47); Hemoglobin 9.7 g/dL (12.0-16.0); Lymphocyte (Absolute #) 1.04 x10^3/uL (1.0-4.6); Lymphocytes % 8.2 % (24.0-44.0); Mean Cell Volume 96.3 fL (78-100); Mean Corpuscular Hemoglobin 29.8 pg (26-32); Mean Corpuscular Hgb Concent. 30.9 g/dL (32-36); Mean Platelet Volume 9.8 fL (7.5-11.0); Monocyte (Absolute #) 0.86 x10^3/uL (0.0-1.3); Monocytes % 6.8 % (0.0-12.0); Neutrophil % 80.7 % (36.0-66.0); Platelet Count 256 x10^3/uL (150-450); Red Blood Count 3.26 x10^6/uL (4.1-5.4); Red Cell Distribution Width 14.9 % (11.5-14.0); White Blood Count 12.7 x10^3/uL (4.0-10.5)
[2021-12-24] MEDS ORDERED: Sodium Chloride 0.9% 1000 ML 1,000 ML IV SCH (10:15)
[2021-12-24 10:19] LABS: Bacteria MODERATE /HPF (NEGATIVE); Epithelial Cells RARE /HPF (FEW); Mucus SLIGHT /HPF (NEGATIVE); WBC >100 /HPF (0-5)
[2021-12-24 10:20] LABS: Appearance CLEAR (CLEAR); Bilirubin NEGATIVE (NEGATIVE); Glucose NEGATIVE (NEGATIVE); Ketones NEGATIVE (NEGATIVE); Nitrite NEGATIVE (NEGATIVE); Protein,Urine Dip TRACE (Negative); RBC TRACE-INTACT Ery/ul (0-5); Specific Gravity 1.025 (1.005-1.025); Urine Cultured Indicated? YES; Urobilinogen 0.2 mg/dL (0-1)
[2021-12-24 10:21] LABS: Dipstick done @ ? MAIN LAB
[2021-12-24 10:33] LABS: ALBUMIN 3.9 g/dL (3.5-5.0); ANION GAP 13.2 MEQ/L (5-15); BILIRUBIN,TOTAL 0.5 mg/dL (0.2-1.3); Calcium 8.9 mg/dL (8.4-10.2); Creatinine 1 1.28 mg/dL (0.52-1.04); EST GLOMERULAR FILTRATION RATE 42.6 ML/MIN; Potassium 4.1 mmol/L (3.5-5.1); Total Protein 6.6 g/dL (6.3-8.2)
[2021-12-24 10:36] LABS: INR 1.07 (0.8-3.0); PROTIME 11.3 SECONDS (9.4-12.5); PTT 29.7 SECONDS (25.1-36.5)
[2021-12-24 10:58] LABS: INFLUENZA A NEGATIVE (NEGATIVE); INFLUENZA B NEGATIVE (NEGATIVE); RESPIRATORY SYNCTIAL VIRUS NEGATIVE (Negative); SARS-CoV-2 Xpert Express NEGATIVE (NEGATIVE)
[2021-12-24] MEDS ORDERED: ROCEPHIN 1 Gm-D5w 50 ml Bag** 1 G/50 ML IVPB IV STA (11:01)
[2021-12-24] MEDS ORDERED: ROCEPHIN 1 Gm-D5w 50 ml Bag** 1 G/50 ML IVPB IV ONE (11:04)
[2021-12-24] MEDS ORDERED: MORPHINE SULFATE 2 MG INJ IV PRN (12:29)
[2021-12-24] MEDS ORDERED: ALPRAZOLAM 1 MG PO SCH (17:15)
[2021-12-24] MEDS ORDERED: MEDICATION INTERVENTION MC SCH (17:30)
[2021-12-24] MEDS ORDERED: XANAX 1 MG PO PRN ×2 (17:43→17:45)
[2021-12-24] MEDS: FEOSOL 325 MG PO SCH (21:16)
[2021-12-24] MEDS: Aricept 10 MG PO SCH (21:16)
[2021-12-24] MEDS: VANCOMYCIN HCL CAPSULE PO SCH (21:16)
[2021-12-24] MEDS: Apresoline 25 MG TABLET PO SCH (21:22)
[2021-12-24] MEDS ORDERED: NON-FORMULARY ITEM (Donepezil Hcl [Aricept] 5 MG Tablet) PO SCH (22:00)
[2021-12-25 05:20] LABS: Absolute Neutrophil Ct (ANC) 8.14 x10^3/uL (1.4-6.9); Basophil (Absolute #) 0.08 x10^3/uL (0-0.4); Eosinophil % 5.3 % (0.00-5.0); Eosinophil (Absolute #) 0.61 x10^3/uL (0-0.5); Hematocrit 27.8 % (35-47); Hemoglobin 8.2 g/dL (12.0-16.0); Lymphocyte (Absolute #) 1.55 x10^3/uL (1.0-4.6); Lymphocytes % 13.6 % (24.0-44.0); Mean Cell Volume 98.2 fL (78-100); Mean Corpuscular Hgb Concent. 29.5 g/dL (32-36); Mean Platelet Volume 10.4 fL (7.5-11.0); Monocyte (Absolute #) 0.99 x10^3/uL (0.0-1.3); Monocytes % 8.7 % (0.0-12.0); Neutrophil % 71.2 % (36.0-66.0); Platelet Count 245 x10^3/uL (150-450); Red Blood Count 2.83 x10^6/uL (4.1-5.4); Red Cell Distribution Width 14.8 % (11.5-14.0); White Blood Count 11.4 x10^3/uL (4.0-10.5)
[2021-12-25 06:52] LABS: ALBUMIN 3.3 g/dL (3.5-5.0); ANION GAP 11.4 MEQ/L (5-15); BILIRUBIN,TOTAL 0.3 mg/dL (0.2-1.3); Calcium 8.3 mg/dL (8.4-10.2); Creatinine 1 1.34 mg/dL (0.52-1.04); EST GLOMERULAR FILTRATION RATE 40.4 ML/MIN; Potassium 4.1 mmol/L (3.5-5.1)
[2021-12-25] MEDS: ROCEPHIN 1 Gm-D5w 50 ml Bag** 1 G/50 ML IVPB IV SCH (10:40)
[2021-12-25] MEDS: VANCOMYCIN HCL CAPSULE PO SCH ×2 (10:41→21:35)
[2021-12-25] MEDS: FEOSOL 325 MG PO SCH ×2 (10:41→21:34)
[2021-12-25] MEDS: Apresoline 25 MG TABLET PO SCH ×3 (15:02→21:35)
[2021-12-25] MEDS ORDERED: Zestril 5 MG PO SCH (17:00)
[2021-12-25] MEDS ORDERED: LASIX 20 MG PO SCH (17:00)
[2021-12-25] MEDS ORDERED: DELTASONE 10 MG PO SCH (17:00)
[2021-12-25] MEDS: ZOLOFT 50 MG TABLET PO SCH (17:22)
[2021-12-25] MEDS: DELTASONE 20 MG PO SCH (17:22)
[2021-12-25] MEDS: Zestril 20 MG PO SCH (17:23)
[2021-12-25] MEDS: Toprol-Xl 25MG Tablets PO SCH (17:23)
[2021-12-25] MEDS: Lasix 40 MG PO SCH (17:24)
[2021-12-25] MEDS: Sodium Chloride 0.9% 1000 ML 1,000 ML IV SCH (20:10)
[2021-12-25] MEDS: Aricept 10 MG PO SCH (21:34)
[2021-12-26] MEDS: Sodium Chloride 0.9% 1000 ML 1,000 ML IV SCH ×2 (05:12→16:35)
[2021-12-26] MEDS: Apresoline 25 MG TABLET PO SCH ×3 (05:12→22:03)
[2021-12-26 05:47] LABS: Absolute Neutrophil Ct (ANC) 11.29 x10^3/uL (1.4-6.9); Basophil (Absolute #) 0.04 x10^3/uL (0-0.4); Eosinophil % 0.2 % (0.00-5.0); Eosinophil (Absolute #) 0.02 x10^3/uL (0-0.5); Hematocrit 29.1 % (35-47); Hemoglobin 8.6 g/dL (12.0-16.0); Lymphocyte (Absolute #) 0.69 x10^3/uL (1.0-4.6); Lymphocytes % 5.4 % (24.0-44.0); Mean Cell Volume 98.3 fL (78-100); Mean Corpuscular Hemoglobin 29.1 pg (26-32); Mean Corpuscular Hgb Concent. 29.6 g/dL (32-36); Mean Platelet Volume 10.5 fL (7.5-11.0); Monocyte (Absolute #) 0.53 x10^3/uL (0.0-1.3); Monocytes % 4.2 % (0.0-12.0); Platelet Count 261 x10^3/uL (150-450); Red Blood Count 2.96 x10^6/uL (4.1-5.4); Red Cell Distribution Width 14.6 % (11.5-14.0); White Blood Count 12.7 x10^3/uL (4.0-10.5)
[2021-12-26 06:15] LABS: ANION GAP 11.3 MEQ/L (5-15); Calcium 8.5 mg/dL (8.4-10.2); Creatinine 1 1.36 mg/dL (0.52-1.04); EST GLOMERULAR FILTRATION RATE 39.8 ML/MIN; Potassium 4.3 mmol/L (3.5-5.1)
[2021-12-26] MEDS: VANCOMYCIN HCL CAPSULE PO SCH ×2 (10:51→22:02)
[2021-12-26] MEDS: FEOSOL 325 MG PO SCH ×2 (10:51→22:02)
[2021-12-26] MEDS: Lasix 40 MG PO SCH (10:51)
[2021-12-26] MEDS: DELTASONE 20 MG PO SCH (10:53)
[2021-12-26] MEDS: ZOLOFT 50 MG TABLET PO SCH (10:53)
[2021-12-26] MEDS: Zestril 20 MG PO SCH (10:53)
[2021-12-26] MEDS: Toprol-Xl 25MG Tablets PO SCH (10:53)
[2021-12-26] MEDS: ROCEPHIN 1 Gm-D5w 50 ml Bag** 1 G/50 ML IVPB IV SCH (10:53)
--- NOTE | 2021-12-26 11:01 | XRAY ---
Indication: Large abdominal wall fluid collection. Procedure was performed bedside. Informed consent obtained. Patient placed supine. Initial abdominal ultrasound performed for localization. Abdominal wall was prepped and draped in sterile fashion. 1% lidocaine plain was used for local anesthesia. Tiny skin incision made. 5 [employer] paracentesis needle/catheter was then percutaneously inserted. Once fluid was aspirating, the outer catheter was then advanced with the inner needle removed. Catheter was connected to a Vacutainer. Approximately 1.1 L of dark tea-colored fluid aspirated and was disposed of properly. Approximately 20 cc was sent to laboratory for analysis. Repeat sonogram demonstrates marked improvement. Catheter removed. Hemostasis achieved using digital pressure over the puncture site. Band-Aid applied over the puncture site. Impression: Technically successful ultrasound guided percutaneous aspiration of large abdominal fluid collection for both therapeutic and diagnostic purpose. No immediate complications or blood loss.
[2021-12-26] MEDS: Aricept 10 MG PO SCH (22:02)
[2021-12-27] MEDS: Sodium Chloride 0.9% 1000 ML 1,000 ML IV SCH (02:56)
[2021-12-27 05:55] LABS: Hematocrit 27.5 % (35-47); Mean Cell Volume 98.9 fL (78-100); Mean Corpuscular Hemoglobin 28.8 pg (26-32); Mean Corpuscular Hgb Concent. 29.1 g/dL (32-36); Mean Platelet Volume 10.5 fL (7.5-11.0); Platelet Count 249 x10^3/uL (150-450); Red Blood Count 2.78 x10^6/uL (4.1-5.4); Red Cell Distribution Width 14.7 % (11.5-14.0); White Blood Count 12.8 x10^3/uL (4.0-10.5)
[2021-12-27] MEDS: Apresoline 25 MG TABLET PO SCH (06:05)
[2021-12-27 06:52] LABS: ALBUMIN 3.3 g/dL (3.5-5.0); ANION GAP 11.8 MEQ/L (5-15); BILIRUBIN,TOTAL 0.2 mg/dL (0.2-1.3); Calcium 8.2 mg/dL (8.4-10.2); Creatinine 1 1.17 mg/dL (0.52-1.04); EST GLOMERULAR FILTRATION RATE 47.3 ML/MIN; Total Protein 6.2 g/dL (6.3-8.2)
--- NOTE | 2021-12-27 08:52 | XRAY ---
Indication: Follow-up percutaneous drainage of abdominal fluid collection. Multiple contiguous axial images obtained through the abdomen and pelvis without contrast. Comparison: December 24, 2021 Lung bases again demonstrates again demonstrates mild bibasilar subsegmental atelectasis/scarring and 5 mm posterior right lower lobe noncalcified nodule. New mild bibasilar dependent atelectasis. Heart not enlarged. Previous abdominal wall fluid collection appears smaller measuring at least 9.7 x 18.4 x 19.5 cm consistent with recent percutaneous drainage. This previously measured 11.9 x 18.5 x 23.6 cm. Noncontrasted stomach and bowel loops remain nonobstructed again with mild diffuse scattered colonic fecal debris and intact sigmoid anastomosis. No free fluid/air. Stable right renal cyst, fatty liver, left renal atrophy, cholecystectomy, and hysterectomy. Remaining liver, Agris, spleen, adrenal glands, kidneys, ureters, and bladder are unremarkable for noncontrast exam. Stable mild scattered aortoiliac calcifications without AAA. Impression: 1. There remains large anterior abdominal wall fluid collection, smaller than before as detailed above. 2. Stable mild fecal stasis, fatty liver, right renal cyst, left renal atrophy, and arteriosclerotic disease.
[2021-12-27] MEDS: Toprol-Xl 25MG Tablets PO SCH (09:07)
[2021-12-27] MEDS: VANCOMYCIN HCL CAPSULE PO SCH (09:07)
[2021-12-27] MEDS: FEOSOL 325 MG PO SCH (09:07)
[2021-12-27] MEDS: DELTASONE 20 MG PO SCH (09:08)
[2021-12-27] MEDS: Zestril 20 MG PO SCH (09:08)
[2021-12-27] MEDS: ZOLOFT 50 MG TABLET PO SCH (09:08)
[2021-12-27] MEDS: Lasix 40 MG PO SCH (09:08)
[2021-12-27] MEDS: ROCEPHIN 1 Gm-D5w 50 ml Bag** 1 G/50 ML IVPB IV SCH (10:28)
[2021-12-27 11:50] VITALS: BP 157/70; PULSE 62; O2SAT 94
--- NOTE | 2022-01-07 05:42 | PCM.SSS ---
History of Present Illness - Chief Complaint Chief Complaint: ABD WALL FLUID COLLECTION/ABCESS, UTI Date: 12/25/21 History of Present Illness: is a 81 year old female. Pt. presented to ER after CT found a reoccurence of her fluid collection related to surgery this past summer. Pt. was also found to have an acute UTI, pt. was unable to be transferred to her surgeon secondary to a bed shortage at [facility]. Pt. will be kept at [facility] for inpatient treatment at this time. - Review of Systems Constitutional: No Fever, No Chills Eyes: No Symptoms Ears, Nose, & Throat: No Symptoms Respiratory: No Cough, No Short Of Breath Cardiac: No Chest Pain, No Edema, No Syncope Abdominal/Gastrointestinal: Abdominal Pain, No Nausea, No Vomiting, No Diarrhea Genitourinary Symptoms: No Dysuria Musculoskeletal: No Back Pain, No Neck Pain Skin: No Rash Neurological: No Dizziness, No Focal Weakness, No Sensory Changes Psychological: No Symptoms Endocrine: No Symptoms Hematologic/Lymphatic: No Symptoms Immunological/Allergic: No Symptoms Medications & Allergies Home Medications: Home Medication List Aspirin EC 81 mg [Ecotrin 81 mg] 81 mg PO DAILY 11/04/18 [History Confirmed 12/24/21] Furosemide 20 mg [Lasix 20 mg] 40 mg PO DAILY 06/07/19 [History Confirmed 12/24/21] ALPRAZolam [Alprazolam ER] 0.25 mg PO BID PRN 07/16/19 [History Confirmed 12/24/21] lisinopriL [Lisinopril] 40 mg PO DAILY 07/16/19 [History Confirmed 12/24/21] Donepezil HCl [Aricept] 5 mg PO QHS 11/04/21 [History Confirmed 12/24/21] Ferrous Sulfate [Iron] 325 mg PO BID 11/04/21 [History Confirmed 12/24/21] Hydralazine HCl 25 mg PO Q8H 11/04/21 [History Confirmed 12/24/21] Metoprolol Succinate 25 mg Xl* [Toprol-Xl 25MG Tablets] 25 mg PO DAILY 11/04/21 [History Confirmed 12/24/21] Prednisone 10 mg [Deltasone 10 mg] 20 mg PO DAILY 11/04/21 [History Conf irmed 12/24/21] Sertraline HCl 50 mg [Zoloft 50 mg Tablet] 50 mg PO DAILY 11/04/21 [History Confirmed 12/24/21] Allergies/Adverse Reactions: Allergies Allergy/AdvReac Type Severity Reaction Status Date / Time vancomycin AdvReac Severe Verified 12/24/21 17:36 - Past Medical History Past Medical History: Yes Neurological History: Alzheimer's Disease ENT History: Cataracts Cardiac History: Hypertension Respiratory History: CHF, COPD Endocrine Medical History: Adrenal Insufficiency, Other Musculoskelatal History: Osteoarthritis GI Medical History: Diverticulitis, Diverticulosis, GERD, Other History: Other Pyscho-Social History: Anxiety Reproductive Disorders: No Pertinent History Comment: Colostomy then reversal, R shoulder RTC tear, B TKA. previously on dialysis- but not currently - Past Surgical History Past Surgical History: Yes Neuro Surgical History: No Pertinent History Cardiac History: No Pertinent History Respiratory Surgery: No Pertinent History GI Surgical History: Appendectomy, Cholecystectomy, Colon Resection Genitourinary Surgical Hx: No Pertinent History Musculskeletal Surgical Hx: Joint Replacement, Orthopedic Surgery Female Surgical History: Hysterectomy Other Surgical History: brittney knees, brittney wrist,. Skin cancer removed from face 2005. colostomy - Social History Smoking Status: Former smoker Exposure to second hand smoke: No Alcohol: None Drug Use: none Significant Family History: no pertinent family hx - Physical Exam General Appearance: no apparent distress, alert Neurologic Exam: alert, 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, cooperative, normal mood/affect, nml cerebellar function, nml station & gait, sensation nml, No motor deficits Eye Exam: PERRL/EOMI, eyes nml inspection Ears, Nose, Throat Exam: normal ENT inspection, TMs normal, pharynx normal, moist mucous membranes Neck Exam: normal inspection, non-tender, supple, full range of motion Respiratory Exam: normal breath sounds, lungs clear, No respiratory distress Cardiovascular Exam: regular rate/rhythm, normal heart sounds, normal peripheral pulses Gastrointestinal/Abdomen Exam: soft, normal bowel sounds, No tenderness, No mass Back Exam: normal inspection, normal range of motion, No CVA tenderness, No vertebral tenderness Extremity Exam: normal inspection, normal range of motion, pelvis stable Skin Exam: normal color, warm, dry, No rash Lymphatic Exam: No adenopathy Results - Labs Lab/Micro Results: Microbiology 12/26/21 10:00 Gram Stain - Final Paracentesis - Not Known Gram Stain Result 1 - Final Gram Stain Result 2 - Final Anaerobic Culture - Preliminary Anaerobic Culture Result 1 - Preliminary Sterile Body Fluid Culture - Final Body Fluid Culture Result 1 - Final 12/24/21 10:07 Urine Culture - Final Urine, Void Klebsiella Pneumoniae Escherichia Coli Assessment/Plan (1) Abdominal wall fluid collections Status: Acute Code(s): R18.8 - OTHER ASCITES (2) Acute UTI Status: Acute Code(s): N39.0 - URINARY TRACT INFECTION, SITE NOT SPECIFIED Hospital Summary - Hospital Course Hospital Course: pt was admitted for iv antibiotics and awaiting transfer, radiology was able to percutaneously drain the fluid collection by ultrasound, pt. noted to be feeling better and was about ready for discharge when a bed opened up and it was decided to transfer the patient for a longer term answer for the reoccuring fluid collection by the surgeon - Vitals & Intake/Output Vital Signs: Vital Signs Temperature 98.4 F 12/27/21 11:49 Pulse Rate 62 12/27/21 11:49 Respiratory Rate 17 12/27/21 11:49 Blood Pressure 157/70 12/27/21 11:49 O2 Sat by Pulse Oximetry 94 L 12/27/21 11:49 - Lab Result Diagrams: 12/27/21 04:00 12/27/21 05:00 Micro Results-Entire Visit: Microbiology 12/26/21 10:00 Gram Stain - Final Paracentesis - Not Known Gram Stain Result 1 - Final Gram Stain Result 2 - Final Anaerobic Culture - Preliminary Anaerobic Culture Result 1 - Preliminary Sterile Body Fluid Culture - Final Body Fluid Culture Result 1 - Final 12/24/21 10:07 Urine Culture - Final Urine, Void Klebsiella Pneumoniae Escherichia Coli - Procedures and Test Procedures and Tests throughout Hospitalization: Therapy Orders & Screens 12/24/21 13:21 RT Screen per Nursing Assess ONCE Comment: Protocol Order Physician Instructions: Greater than 3 points order RT Admission Screen Reason For Exam: Triggered on Admission Diagnosis: abdominal wall fluid collection Diagnosis: abdominal wall fluid collection Pneumonia: No Home O2: No Asthma: No CHF: Yes Home CPAP/BIPAP: No Home Nebs/MDI: Yes Total Points: 8 12/24/21 17:08 Respiratory Therapy Assessment ONCE Comment: Diagnosis: abdominal wall fluid collection - Discharge Discharge Date: 12/27/21 Disposition: DC TO [facility] Condition: Stable Prescriptions: No Action Aspirin EC 81 mg [Ecotrin 81 mg] 81 mg PO DAILY Furosemide 20 mg [Lasix 20 mg] 40 mg PO DAILY lisinopriL [Lisinopril] 40 mg PO DAILY ALPRAZolam [Alprazolam ER] 0.25 mg PO BID PRN Sertraline HCl 50 mg [Zoloft 50 mg Tablet] 50 mg PO DAILY Prednisone 10 mg [Deltasone 10 mg] 20 mg PO DAILY Metoprolol Succinate 25 mg Xl* [Toprol-Xl 25MG Tablets] 25 mg PO DAILY Hydralazine HCl 25 mg PO Q8H Ferrous Sulfate [Iron] 325 mg PO BID Donepezil HCl [Aricept] 5 mg PO QHS Forms: Ambulance Transport Record, Transfer Record Inter-Agency
--- NOTE | 2022-01-07 06:05 | PCM.SSS ---
History of Present Illness - Chief Complaint Chief Complaint: ABD WALL FLUID COLLECTION/ABCESS, UTI Date: 12/25/21 History of Present Illness: is a 81 year old female. Pt. presented to ER with abdominal discomfort, pt. has been having trouble with reoccuring abdominal fluid collection since surgery this past summer. The surgeon did not have a bed for the patient, so will be kept at [facility] until a bed arrives. Pt. was also found to have an acute UTI. Medications & Allergies Home Medications: Home Medication List Aspirin EC 81 mg [Ecotrin 81 mg] 81 mg PO DAILY 11/04/18 [History Confirmed 12/24/21] Furosemide 20 mg [Lasix 20 mg] 40 mg PO DAILY 06/07/19 [History Confirmed 12/24/21] ALPRAZolam [Alprazolam ER] 0.25 mg PO BID PRN 07/16/19 [History Confirmed 12/24/21] lisinopriL [Lisinopril] 40 mg PO DAILY 07/16/19 [History Confirmed 12/24/21] Donepezil HCl [Aricept] 5 mg PO QHS 11/04/21 [History Confirmed 12/24/21] Ferrous Sulfate [Iron] 325 mg PO BID 11/04/21 [History Confirmed 12/24/21] Hydralazine HCl 25 mg PO Q8H 11/04/21 [History Confirmed 12/24/21] Metoprolol Succinate 25 mg Xl* [Toprol-Xl 25MG Tablets] 25 mg PO DAILY 11/04/21 [History Confirmed 12/24/21] Prednisone 10 mg [Deltasone 10 mg] 20 mg PO DAILY 11/04/21 [History Confirmed 12/24/21] Sertraline HCl 50 mg [Zoloft 50 mg Tablet] 50 mg PO DAILY 11/04/21 [History Confirmed 12/24/21] Allergies/Adverse Reactions: Allergies Allergy/AdvReac Type Severity Reaction Status Date / Time vancomycin AdvReac Severe Verified 12/24/21 17:36 - Past Medical History Past Medical History: Yes Neurological History: Alzheimer's Disease ENT History: Cataracts Cardiac History: Hypertension Respiratory History: CHF, COPD Endocrine Medical History: Adrenal Insufficiency, Other Musculoskelatal History: Osteoarthritis GI Medical History: Diverticulitis, Diverticulosis, GERD, Other History: Other Pyscho-Social History: Anxiety Reproductive Disorders: No Pertinent History Comment: Colostomy then reversal, R shoulder RTC tear, B TKA. previously on dialysis- but not currently - Past Surgical History Past Surgical History: Yes Neuro Surgical History: No Pertinent History Cardiac History: No Pertinent History Respiratory Surgery: No Pertinent History GI Surgical History: Appendectomy, Cholecystectomy, Colon Resection Genitourinary Surgical Hx: No Pertinent History Musculskeletal Surgical Hx: Joint Replacement, Orthopedic Surgery Female Surgical History: Hysterectomy Other Surgical History: brittney knees, brittney wrist,. Skin cancer removed from face 2005. colostomy - Social History Smoking Status: Former smoker Exposure to second hand smoke: No Alcohol: None Drug Use: none Significant Family History: no pertinent family hx Results - Labs Lab/Micro Results: Microbiology 12/26/21 10:00 Gram Stain - Final Paracentesis - Not Known Gram Stain Result 1 - Final Gram Stain Result 2 - Final Anaerobic Culture - Preliminary Anaerobic Culture Result 1 - Preliminary Sterile Body Fluid Culture - Final Body Fluid Culture Result 1 - Final 12/24/21 10:07 Urine Culture - Final Urine, Void Klebsiella Pneumoniae Escherichia Coli Hospital Summary - Vitals & Intake/Output Vital Signs: Vital Signs Temperature 98.4 F 12/27/21 11:49 Pulse Rate 62 12/27/21 11:49 Respiratory Rate 17 12/27/21 11:49 Blood Pressure 157/70 12/27/21 11:49 O2 Sat by Pulse Oximetry 94 L 12/27/21 11:49 - Lab Result Diagrams: 12/27/21 04:00 12/27/21 05:00 Micro Results-Entire Visit: Microbiology 12/26/21 10:00 Gram Stain - Final Paracentesis - Not Known Gram Stain Result 1 - Final Gram Stain Result 2 - Final Anaerobic Culture - Preliminary Anaerobic Culture Result 1 - Preliminary Sterile Body Fluid Culture - Final Body Fluid Culture Result 1 - Final 12/24/21 10:07 Urine Culture - Final Urine, Void Klebsiella Pneumoniae Escherichia Coli - Procedures and Test Procedures and Tests throughout Hospitalization: Therapy Orders & Screens 12/24/21 13:21 RT Screen per Nursing Assess ONCE Comment: Protocol Order Physician Instructions: Greater than 3 points order RT Admission Screen Reason For Exam: Triggered on Admission Diagnosis: abdominal wall fluid collection Diagnosis: abdominal wall fluid collection Pneumonia: No Home O2: No Asthma: No CHF: Yes Home CPAP/BIPAP: No Home Nebs/MDI: Yes Total Points: 8 12/24/21 17:08 Respiratory Therapy Assessment ONCE Comment: Diagnosis: abdominal wall fluid collection - Discharge Disposition: Short Term @ [facility] Condition: Stable Prescriptions: No Action Aspirin EC 81 mg [Ecotrin 81 mg] 81 mg PO DAILY Furosemide 20 mg [Lasix 20 mg] 40 mg PO DAILY lisinopriL [Lisinopril] 40 mg PO DAILY ALPRAZolam [Alprazolam ER] 0.25 mg PO BID PRN Sertraline HCl 50 mg [Zoloft 50 mg Tablet] 50 mg PO DAILY Prednisone 10 mg [Deltasone 10 mg] 20 mg PO DAILY Metoprolol Succinate 25 mg Xl* [Toprol-Xl 25MG Tablets] 25 mg PO DAILY Hydralazine HCl 25 mg PO Q8H Ferrous Sulfate [Iron] 325 mg PO BID Donepezil HCl [Aricept] 5 mg PO QHS Forms: Ambulance Transport Record, Transfer Record Inter-Agency
== END 2021-12-27 12:40 | disposition home or self-care (01) | DRG 948 ==
LOC: ED 09:45 → MED SURG 12:09 → OBSVTOIN 12-25 09:24
PROVIDERS: ADMIT Family Medicine; ATTEND Family Medicine
DX: R18.8 Other ascites (principal); L76.32 Postprocedural hematoma of skin and subcutaneous tissue following other procedure; N39.0 Urinary tract infection, site not specified; I10 Essential (primary) hypertension; Z79.899 Other long term (current) drug therapy; Z20.828 Contact with and (suspected) exposure to other viral communicable diseases; Z85.828 Personal history of other malignant neoplasm of skin
CPT/HCPCS: 0241U; 36000; 36415; 49083; 74176; 80048; 80053; 81015; 83690; 85025; 85027; 85610; 85730; 87070; 87075; 87077; 87086; 87186; 87205; 89051; 93268; 94760; 96365; 96374; 99284; G0378; 88305; 88309; J0696; J2270; L0625; A9270-GY

== ENCOUNTER 2022-09-16 12:16 | Emergency (ER) | payer MEDICARE ==
[2022-09-16 12:37] VITALS: TEMP 97.9
--- NOTE | 2022-09-16 12:47 | ERPHSYRPT ---
- History of Present Illness Time Seen by Provider: 09/16/22 12:44 Historian: patient Exam Limitations: no limitations Patient Subjective Stated Complaint: pt states that she has been having rt side stomach pain for the past couple of days. pt states it makes me SOB Triage Nursing Assessment: pt came into the er via wheelchair; pt is axo x4; c/o abd pain; pt states pain to RLQ; active bowel sounds in all quads; tenderness to RLQ; abd is obese, soft in RUQ, LLQ, LUQ; distention present to RLQ; pt denies N/V/D; SOB present; clear lung sounds in all lobes; skin PDW; vitals wnl Physician History: Patient is an 82-year-old female presents to the emergency department for evaluation of abdominal pain and distention. Pain started approximately 2 days ago. Symptoms have been intermittent. No active pain at the moment. Patient declined pain medication. Patient states her abdomen is distended and feels hard. She has some tenderness to palpation just right to the umbilicus. Overlying soft tissue intact. No signs of trauma. Patient states she was recently treated for urinary tract infection otherwise no active medical issues. No associated fevers. No nausea vomiting or diarrhea. Family at bedside. They voiced no other complaints or concerns at this time. Portions of this note were created with voice recognition technology. There may be grammatical, spelling, punctuation or sound alike errors Timing/Duration: day(s) Activities at Onset: none (2 days ago) Quality: aching Abdominal Pain Onset Location: other Pain Radiation: no radiation Severity of Pain-Max: moderate Severity of Pain-Current: mild Modifying Factors: Improves With: nothing Associated Symptoms: denies symptoms Previous symptoms: no prior history Allergies/Adverse Reactions: vancomycin Adverse Reaction (Severe, Verified 09/16/22 12:20) pt states causes kidney damage ALLERGIC TO IV ONLY Home Medications: Aspirin EC 81 mg [Ecotrin 81 mg] 81 mg PO DAILY 11/04/18 [History] Furosemide 20 mg [Lasix 20 mg] 40 mg PO DAILY 06/07/19 [History] ALPRAZolam [Alprazolam ER] 0.25 mg PO BID PRN 07/16/19 [History] lisinopriL [Lisinopril] 40 mg PO DAILY 07/16/19 [History] Donepezil HCl [Aricept] 5 mg PO QHS 11/04/21 [History] Ferrous Sulfate [Iron] 325 mg PO BID 11/04/21 [History] Hydralazine HCl 25 mg PO Q8H 11/04/21 [History] Metoprolol Succinate 25 mg Xl* [Toprol-Xl 25MG Tablets] 25 mg PO DAILY 11/04/21 [History] Prednisone 10 mg [Deltasone 10 mg] 20 mg PO DAILY 11/04/21 [History] Sertraline HCl 50 mg [Zoloft 50 mg Tablet] 50 mg PO DAILY 11/04/21 [History] Cefpodoxime Proxetil 200 mg [Vantin 200 mg] 200 mg PO BID 09/16/22 [History] Doxycycline Hyclate 100 mg [Vibramycin 100 MG] 100 mg PO BID 09/16/22 [History] Hx Tetanus, Diphtheria Vaccination/Date Given: Yes Hx Influenza Vaccination/Date Given: Yes Hx Pneumococcal Vaccination/Date Given: Yes Immunizations Up to Date: Yes Travel Risk - International Travel Have you traveled outside of the country in past 3 weeks: No - Coronavirus Screening Are you exhibiting any of the following symptoms?: No Close contact with a COVID-19 positive Pt in past 14-21 Days: No - Vaccine Status Have you recieved a Covid-19 vaccination: Yes [place]: Moderna - Vaccination Dates Date of 2cond Vaccination (if applicable): unknown - Review of Systems Constitutional: No Symptoms, No Fever, No Chills Eyes: No Symptoms Ears, Nose, & Throat: No Symptoms Respiratory: No Symptoms, No Cough, No Dyspnea Cardiac: No Symptoms, No Chest Pain, No Edema, No Syncope Abdominal/Gastrointestinal: No Symptoms, No Abdominal Pain, No Nausea, No Vomiting, No Diarrhea Genitourinary Symptoms: No Symptoms, No Dysuria Musculoskeletal: No Symptoms, No Back Pain, No Neck Pain Skin: No Symptoms, No Rash Neurological: No Symptoms, No Dizziness, No Focal Weakness, No Sensory Changes Psychological: No Symptoms Endocrine: No Symptoms Hematologic/Lymphatic: No Symptoms Immunological/Allergic: No Symptoms All Other Systems: Reviewed and Negative - Past Medical History Pertinent Past Medical History: Yes Neurological History: No Pertinent History ENT History: Cataracts Cardiac History: Congestive Heart Failure, Hypertension Respiratory History: COPD Endocrine Medical History: Other Musculoskeletal History: No Pertinent History GI Medical History: Diverticulitis, Diverticulosis, GERD, Other History: Other Psycho-Social History: Anxiety Female Reproductive Disorders: No Pertinent History Other Medical History: KIDNEYS, 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 B TKA. - Past Surgical History Past Surgical History: Yes Neuro Surgical History: No Pertinent History Cardiac: No Pertinent History Respiratory: No Pertinent History Gastrointestinal: Appendectomy, Cholecystectomy, Colon Resection Genitourinary: No Pertinent History Musculoskeletal: Joint Replacement, Orthopedic Surgery Female Surgical History: Hysterectomy Other Surgical History: brittney knees, brittney wrist,. Skin cancer removed from face 2005. colostomy - Social History Smoking Status: Former smoker Exposure to second hand smoke: No Alcohol Use: None Drug Use: none Patient Lives Alone: No Significant Family History: no pertinent family hx - Nursing Vital Signs Nursing Vital Signs: Initial Vital Signs Pulse Rate 85 09/16/22 12:18 Respiratory Rate 20 09/16/22 12:18 Blood Pressure 96/70 09/16/22 12:18 O2 Sat by Pulse Oximetry 96 09/16/22 12:18 Pain Scale Pain Intensity 8 - Physical Exam General Appearance: no apparent distress, alert Eye Exam: PERRL/EOMI, eyes nml inspection Ears, Nose, Throat Exam: normal ENT inspection, pharynx normal, moist mucous membranes Neck Exam: normal inspection, non-tender, supple, full range of motion Respiratory Exam: normal breath sounds, lungs clear, airway intact, No respiratory distress Cardiovascular Exam: regular rate/rhythm, normal heart sounds Gastrointestinal/Abdomen Exam: soft, tenderness, distention, No mass, No guarding (Mild diffuse tenderness no guarding.), No pulsatile mass Back Exam: normal inspection, normal range of motion, No CVA tenderness, No vertebral tenderness Extremity Exam: normal inspection, normal range of motion, pelvis stable Neurologic Exam: alert, 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, cooperative, normal mood/affect, sensation nml, No motor deficits Skin Exam: normal color, warm, dry SpO2 Interpretation: normal SpO2: 95 O2 Delivery: Room Air - Course Nursing assessment & vital signs reviewed: Yes EKG Interpreted by Me: RATE (104), Sinus Tach, NORMAL AXIS, NORMAL INTERVALS (Rate 104, right bundle branch block and left anterior fascicular block. LVH), Right Bundle Branch Block - CT Exams Abdomen/Pelvis CT Interpretation: Tele-radiologist Report (Abdominal wall fluid collection has decreased in size since previous exam. Sigmoid diverticulosis, right renal cyst which appears stable. Fatty liver. Left renal atrophy. Chronic bony changes atherosclerotic disease) Ordered Tests: Active Orders 24 hr Category Date Time Status IV Insertion STAT Care 09/16/22 12:41 Completed ABDOMEN AND PELVIS W/0 CONTRAS [CT] Stat Exams 09/16/22 12:42 Completed CBC W DIFF Stat Lab 09/16/22 12:45 Completed CMP Stat Lab 09/16/22 12:45 Completed CULTURE,URINE Stat Lab 09/16/22 12:44 Results LIPASE Stat Lab 09/16/22 12:45 Completed TROPONIN Q4H Lab 09/16/22 12:45 Completed TROPONIN Q4H Lab 09/16/22 16:57 Completed UA W/RFX UR CULTURE Stat Lab 09/16/22 12:44 Completed Medication Summary Discontinued Medications Generic Name Dose Route Start Last Admin Trade Name Freq PRN Reason Stop Dose Admin Ceftriaxone Sodium/Dextrose 1 g in 50 mls @ 100 mls/hr 09/16/22 14:05 0 03/10 14:41 Rocephin 1 Gm-D5w 50 Ml Bag IV 09/16/22 14:34 Infused STAT STA Infusion Ceftriaxone Sodium/Dextrose Confirm 09/16/22 14:09 Rocephin 1 Gm-D5w 50 Ml Bag Administered 09/16/22 14:10 Dose 1 g in 50 mls @ ud IV .STK-MED ONE Ketorolac Tromethamine 30 mg 09/16/22 17:18 09/16/22 17:20 Ketorolac Tromethamine 30 Mg/Ml Inj IV 09/16/22 17:19 30 mg STAT ONE Administration Ketorolac Tromethamine Confirm 09/16/22 17:19 Ketorolac Tromethamine 30 Mg/Ml Inj Administered 09/16/22 17:20 Dose 30 mg .ROUTE .STK-MED ONE Lab/Rad Data: Laboratory Result Diagrams 09/16/22 12:45 09/16/22 12:45 Laboratory Results 09/16/22 09/16/22 09/16/22 Range/Units 16:57 12:45 12:45 WBC (4.0-10.5) x10^3/uL RBC (4.1-5.4) x10^6/uL Hgb (12.0-16.0) g/dL Hct (35-47) % MCV (78-100) fL MCH (26-32) pg MCHC (32-36) g/dL RDW (11.5-14.0) % Plt Count (150-450) x10^3/uL MPV (7.5-11.0) fL Gran % (36.0-66.0) % Immature Gran % (Auto) (0.00-0.4) % Nucleat RBC Rel Count (0.00-0.1) % Eos # (Auto) (0-0.5) x10^3/uL Immature Gran # (Auto) (0.00-0.03) x10^3u/L Absolute Lymphs (auto) (1.0-4.6) x10^3/uL Absolute Monos (auto) (0.0-1.3) x10^3/uL Absolute Nucleated RBC (0.00-0.01) x10^3u/L Lymphocytes % (24.0-44.0) % Monocytes % (0.0-12.0) % Eosinophils % (0.00-5.0) % Basophils % (0.0-0.4) % Absolute Granulocytes (1.4-6.9) x10^3/uL Basophils # (0-0.4) x10^3/uL Sodium 139 (137-145) mmol/L Potassium 3.7 (3.5-5.1) mmol/L Chloride 105 (98-107) mmol/L Carbon Dioxide 25 (22-30) mmol/L Anion Gap 13.3 (5-15) MEQ/L BUN 19 H (7-17) mg/dL Creatinine 1.17 H (0.52-1.04) mg/dL Estimated GFR 47.2 ML/MIN Glucose 222 H (74-106) mg/dL Calcium 8.8 (8.4-10.2) mg/dL Total Bilirubin 0.60 (0.2-1.3) mg/dL AST 18 (14-36) U/L ALT 16 (0-35) U/L Alkaline Phosphatase 59 (38-126) U/L Troponin I < 0.012 < 0.012 (0.000-0.034) ng/mL Serum Total Protein 6.4 (6.3-8.2) g/dL Albumin 3.6 (3.5-5.0) g/dL Lipase 41 (23-300) U/L Urine Color (Yellow) Urine Appearance (Clear) Urine pH (4.6-8.0) Ur Specific Mccl[place] (1.005-1.030) Urine Protein (Negative) Urine Glucose (UA) (Negative) mg/dL Urine Ketones (Negative) Urine Blood (Negative) Urine Nitrite (Negative) Urine Bilirubin (Negative) Urine Urobilinogen (0.2) mg/dL Ur Leukocyte Esterase (Negative) U Hyaline Cast (Auto) (0-2) /LPF Urine Microscopic RBC (0-5) /HPF Urine Microscopic WBC (0-5) /HPF Ur Epithelial Cells (None Seen) /HPF Urine Bacteria (None Seen) /HPF Urine Culture Reflexed (NO) 09/16/22 09/16/22 Range/Units 12:45 12:44 WBC 9.2 (4.0-10.5) x10^3/uL RBC 3.80 L (4.1-5.4) x10^6/uL Hgb 11.5 L (12.0-16.0) g/dL Hct 36.5 (35-47) % MCV 96.1 (78-100) fL MCH 30.3 (26-32) pg MCHC 31.5 L (32-36) g/dL RDW 13.5 (11.5-14.0) % Plt Count 202 (150-450) x10^3/uL MPV 10.6 (7.5-11.0) fL Gran % 81.0 H (36.0-66.0) % Immature Gran % (Auto) 0.3 (0.00-0.4) % Nucleat RBC Rel Count 0.0 (0.00-0.1) % Eos # (Auto) 0.14 (0-0.5) x10^3/uL Immature Gran # (Auto) 0.03 (0.00-0.03) x10^3u/L Absolute Lymphs (auto) 0.97 L (1.0-4.6) x10^3/uL Absolute Monos (auto) 0.57 (0.0-1.3) x10^3/uL Absolute Nucleated RBC 0.00 (0.00-0.01) x10^3u/L Lymphocytes % 10.6 L (24.0-44.0) % Monocytes % 6.2 (0.0-12.0) % Eosinophils % 1.5 (0.00-5.0) % Basophils % 0.4 (0.0-0.4) % Absolute Granulocytes 7.44 H (1.4-6.9) x10^3/uL Basophils # 0.04 (0-0.4) x10^3/uL Sodium (137-145) mmol/L Potassium (3.5-5.1) mmol/L Chloride (98-107) mmol/L Carbon Dioxide (22-30) mmol/L Anion Gap (5-15) MEQ/L BUN (7-17) mg/dL Creatinine (0.52-1.04) mg/dL Estimated GFR ML/MIN Glucose (74-106) mg/dL Calcium (8.4-10.2) mg/dL Total Bilirubin (0.2-1.3) mg/dL AST (14-36) U/L ALT (0-35) U/L Alkaline Phosphatase (38-126) U/L Troponin I (0.000-0.034) ng/mL Serum Total Protein (6.3-8.2) g/dL Albumin (3.5-5.0) g/dL Lipase (23-300) U/L Urine Color Dark Yellow A (Yellow) Urine Appearance Clear (Clear) Urine pH 5.5 (4.6-8.0) Ur Specific [place] 1.020 (1.005-1.030) Urine Protein 30 (Negative) Urine Glucose (UA) Negative (Negative) mg/dL Urine Ketones Negative (Negative) Urine Blood Negative (Negative) Urine Nitrite Negative (Negative) Urine Bilirubin Negative (Negative) Urine Urobilinogen 0.2 (0.2) mg/dL Ur Leukocyte Esterase Small A (Negative) U Hyaline Cast (Auto) 6-10 A (0-2) /LPF Urine Microscopic RBC 0-2 (0-5) /HPF Urine Microscopic WBC 21-50 A (0-5) /HPF Ur Epithelial Cells None Seen (None Seen) /HPF Urine Bacteria None Seen (None Seen) /HPF Urine Culture Reflexed YES (NO) - Progress Progress: improved Progress Note: Case discussed with Dr. Ferreira, hospitalist at [facility] who accepts ike lemos. Transfer was accepted at 3:58 PM. Transfer center will return call with a bed assignment. 09/16/22 15:59 Patient is an 82-year-old female presents to our ED for evaluation of abdominal distention/pain. CT scan reveals abdominal wall fluid collection which appears to be improving as compared to the previous. CBC CMP sent and unremarkable. No leukocytosis. Lipase negative. Urinalysis reveals urinary tract infection. Patient received Rocephin for the UTI. Toradol administered for pain control. Patient reassessed. Patient states that she still feels her abdomen distended and is not comfortable going home. At that point we decided to admit patient for evaluation. Family declined admission to [facility]. Patient states that they have a surgeon, Dr. Spears at [facility] but they prefer to be transferred to. We arranged transfer to [facility]. Complexity of problems addressed as moderate, acute complicated No critical care time Complex of data reviewed and analyzed is extensive test ordered. Test reviewed and analyzed. Clinical correlation made between findings and H&P. Patient appears to have a resolving abdominal wall fluid collection. However patient is more symptomatic now. It is unclear whether or not patient's current symptoms are related to the abdominal fluid collection. In light of the fact that the fluid collection exists patient will need to be admitted and possibly have a surgical consultation. Family states patient has a surgeon Dr. Spears at [facility] that they prefer to be transferred to. Plan of care discussed with accepting physician Dr. Ferreira at [facility]. Risk of complication and or risk of morbidity/mortality of patient management is high. Patient will require hospitalization/higher level of care. Plan of care discussed with patient. She agrees to transfer to [facility]. Vital stable. She voices no other complaints or concerns at this time. Daughter is at bedside. They agree with plan of care. Portions of this note were created with voice recognition technology. There may be grammatical, spelling, punctuation or sound alike errors 09/17/22 07:34 Counseled pt/family regarding: lab results, diagnosis - Departure Departure Disposition: Transfer Clinical Impression: UTI (urinary tract infection), Abdominal wall fluid collections, Sigmoid diverticulosis, Renal cyst, right, Fatty liver, Left renal atrophy Condition: Stable Critical Care Time: No Referrals: FRANKI TOBAR MD [Primary Care Provider] - Follow up/PCP as directed
[2022-09-16 12:52] LABS: Absolute Neutrophil Ct (ANC) 7.44 x10^3/uL (1.4-6.9); BASOPHIL % 0.4 % (0.0-0.4); Basophil (Absolute #) 0.04 x10^3/uL (0-0.4); Eosinophil % 1.5 % (0.00-5.0); Eosinophil (Absolute #) 0.14 x10^3/uL (0-0.5); Hematocrit 36.5 % (35-47); Hemoglobin 11.5 g/dL (12.0-16.0); IMMATURE GRAN # 0.03 x10^3u/L (0.00-0.03); IMMATURE GRAN % 0.3 % (0.00-0.4); Lymphocyte (Absolute #) 0.97 x10^3/uL (1.0-4.6); Lymphocytes % 10.6 % (24.0-44.0); Mean Cell Volume 96.1 fL (78-100); Mean Corpuscular Hemoglobin 30.3 pg (26-32); Mean Corpuscular Hgb Concent. 31.5 g/dL (32-36); Mean Platelet Volume 10.6 fL (7.5-11.0); Monocyte (Absolute #) 0.57 x10^3/uL (0.0-1.3); Monocytes % 6.2 % (0.0-12.0); Platelet Count 202 x10^3/uL (150-450); Red Cell Distribution Width 13.5 % (11.5-14.0); White Blood Count 9.2 x10^3/uL (4.0-10.5)
[2022-09-16 13:07] LABS: ALBUMIN 3.6 g/dL (3.5-5.0); ANION GAP 13.3 MEQ/L (5-15); BILIRUBIN,TOTAL 0.6 mg/dL (0.2-1.3); Calcium 8.8 mg/dL (8.4-10.2); Creatinine 1 1.17 mg/dL (0.52-1.04); EST GLOMERULAR FILTRATION RATE 47.2 ML/MIN; Potassium 3.7 mmol/L (3.5-5.1); Total Protein 6.4 g/dL (6.3-8.2)
[2022-09-16 13:22] LABS: Appearance Clear (Clear); Bacteria None Seen /HPF (None Seen); Bilirubin Negative (Negative); Blood Negative (Negative); Epithelial Cells None Seen /HPF (None Seen); Glucose, Urine Negative (Negative); Ketones Negative (Negative); Leukocyte Esterase Small (Negative); Nitrite Negative (Negative); Ph 5.5 (4.6-8.0); Protein,Urine Dip 30 (Negative); RBC 0-2 /HPF (0-5); Urobilinogen 0.2 mg/dL (0.2); WBC 21-50 /HPF (0-5)
[2022-09-16 13:23] LABS: ADD URINE CULTURE? YES (NO)
--- NOTE | 2022-09-16 13:24 | XRAY ---
Indication: Right lower quadrant pain. Multiple contiguous axial images obtained through the abdomen and pelvis without contrast. Graft comparison: December 27, 2021 Lung bases again demonstrate bibasilar subsegmental atelectasis/scarring less than before. Heart is not enlarged. Previous abdominal wall fluid collection continues to appear smaller measuring at least 6.7 x 10.4 x 11.6 cm. This previously measured 9.7 x 18.4 x 19.5 cm. Stomach mildly distended with food/fluid. Noncontrasted stomach and bowel loops appear nonobstructed. Again mild sigmoid diverticulosis without diverticulitis. Stable right renal cyst, fatty liver, left renal atrophy, appendectomy, cholecystectomy, and hysterectomy. No free fluid/air. Remaining liver, pancreas, spleen, adrenal glands, kidneys, ureters, and bladder are unremarkable for noncontrast exam. Again mild scattered aortoiliac calcifications without AAA. Osseous structures intact again with osteopenia and mild/moderate degenerative changes throughout the spine. Impression: 1. Continued improving abdominal wall fluid collection with measurements given above. 2. Stable fatty liver, sigmoid diverticulosis, right renal cyst, left renal atrophy, arteriosclerotic disease, and chronic bony findings. 3. Remaining CT abdomen/pelvis without contrast exam is negative.
[2022-09-16] MEDS ORDERED: ROCEPHIN 1 Gm-D5w 50 ml Bag** 1 G/50 ML IVPB IV ONE (14:09)
[2022-09-16] MEDS: ROCEPHIN 1 Gm-D5w 50 ml Bag** 1 G/50 ML IVPB IV STA (14:11)
[2022-09-16 17:16] VITALS: BP 122/100; PULSE 93; RESP 22
[2022-09-16] MEDS ORDERED: TORAdol 30 mg Injection ONE (17:19)
[2022-09-16] MEDS: TORAdol 30 mg Injection IV ONE (17:20)
[2022-09-17 07:41] VITALS: O2SAT 95
== END 2022-09-16 17:50 | disposition short-term general hospital (02) ==
LOC: ED 12:16
DX: N39.0 Urinary tract infection, site not specified (principal); R18.8 Other ascites; K57.30 Diverticulosis of large intestine without perforation or abscess without bleeding; N28.1 Cyst of kidney, acquired; K76.0 Fatty (change of) liver, not elsewhere classified; N26.1 Atrophy of kidney (terminal); R10.9 Unspecified abdominal pain; R14.0 Abdominal distension (gaseous); I11.0 Hypertensive heart disease with heart failure; I50.9 Heart failure, unspecified; Z79.52 Long term (current) use of systemic steroids; Z79.899 Other long term (current) drug therapy
CPT/HCPCS: 36000; 36415; 74176; 80053; 81001; 83690; 84484; 85025; 87077; 87086; 87186; 96365; 96374; 99285; J0696; J1885

== ENCOUNTER 2022-10-13 22:19 | Emergency (ER) | payer MEDICARE ==
[2022-10-13 22:31] VITALS: TEMP 97.3
--- NOTE | 2022-10-13 22:57 | ERPHSYRPT ---
- History of Present Illness Source: patient, EMS Exam Limitations: no limitations Patient Subjective Stated Complaint: per ems patient fell on the sidewalk going into her house, denies blood thinners Triage Nursing Assessment: pt presents per Medic 1, pt fell on side walk going into the house, pt c/o L shoulder pain, no deformities noted, L elbow abrasions noted, pt denies blood thinners, denies any LOC or hitting head, pt able to move fingers on L side, +2 radial pulses bilaterally, pt hypertensive Physician History: 82 yo WF fell walking home from [facility], [place] complains of L shoulder pain. Pt is R handed and pain is moderate. She was given 100mcg IV Fentanyl/4mg IV Zofran in route. Pt denies head injury-LOC/C, T, or L-spine pain/Chest pain/abdominal pain/Hip-LE pain. Occurred: just prior to arrival Reason for Fall: tripped Injuries/Pain Location: upper extremity (L shoulder) Loss of Consciousness: no loss of consciousness Quality: aching Severity of Pain-Max: severe Severity of Pain-Current: moderate Modifying Factors: Improves With: movement Associated Symptoms (Fall): denies symptoms Allergies/Adverse Reactions: vancomycin Adverse Reaction (Severe, Verified 10/13/22 22:25) pt states causes kidney damage ALLERGIC TO IV ONLY IV contrast dye Adverse Reaction (Severe, Uncoded 10/13/22 22:25) Home Medications: Aspirin EC 81 mg [Ecotrin 81 mg] 81 mg PO DAILY 11/04/18 [History] Furosemide 20 mg [Lasix 20 mg] 40 mg PO DAILY 06/07/19 [History] ALPRAZolam [Alprazolam ER] 0.25 mg PO BID PRN 07/16/19 [History] lisinopriL [Lisinopril] 40 mg PO DAILY 07/16/19 [History] Donepezil HCl [Aricept] 5 mg PO QHS 11/04/21 [History] Ferrous Sulfate [Iron] 325 mg PO BID 11/04/21 [History] Hydralazine HCl 25 mg PO Q8H 11/04/21 [History] Metoprolol Succinate 25 mg Xl* [Toprol-Xl 25MG Tablets] 25 mg PO DAILY 11/04/21 [History] Prednisone 10 mg [Deltasone 10 mg] 20 mg PO DAILY 11/04/21 [History] Sertraline HCl 50 mg [Zoloft 50 mg Tablet] 50 mg PO DAILY 11/04/21 [History] Cefpodoxime Proxetil 200 mg [Vantin 200 mg] 200 mg PO BID 09/16/22 [History] Hx Tetanus, Diphtheria Vaccination/Date Given: Yes Hx Influenza Vaccination/Date Given: Yes Hx Pneumococcal Vaccination/Date Given: Yes Travel Risk - International Travel Have you traveled outside of the country in past 3 weeks: No - Coronavirus Screening Are you exhibiting any of the following symptoms?: No Close contact with a COVID-19 positive Pt in past 14-21 Days: No - Vaccine Status Have you recieved a Covid-19 vaccination: Yes Civil Litigation Attorney: Moderna - Vaccination Dates Date of 2cond Vaccination (if applicable): unknown - Review of Systems Constitutional: No Symptoms Eyes: No Symptoms Ears, Nose, & Throat: No Symptoms Respiratory: No Symptoms Cardiac: No Symptoms Abdominal/Gastrointestinal: No Symptoms Genitourinary Symptoms: No Symptoms Skin: No Symptoms Neurological: No Symptoms Psychological: No Symptoms Endocrine: No Symptoms Hematologic/Lymphatic: No Symptoms Immunological/Allergic: No Symptoms - Past Medical History Pertinent Past Medical History: Yes Neurological History: No Pertinent History ENT History: Cataracts Cardiac History: Congestive Heart Failure, Hypertension Respiratory History: COPD Endocrine Medical History: Other Musculoskeletal History: No Pertinent History GI Medical History: Diverticulitis, Diverticulosis, GERD, Other History: Other Psycho-Social History: Anxiety Female Reproductive Disorders: No Pertinent History Other Medical History: KIDNEYS, 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 B TKA. - Past Surgical History Past Surgical History: Yes Neuro Surgical History: No Pertinent History Cardiac: No Pertinent History Respiratory: No Pertinent History Gastrointestinal: Appendectomy, Cholecystectomy, Colon Resection Genitourinary: No Pertinent History Musculoskeletal: Joint Replacement, Orthopedic Surgery Female Surgical History: Hysterectomy Other Surgical History: brittney knees, brittney wrist,. Skin cancer removed from face 2006. colostomy - Social History Smoking Status: Former smoker Exposure to second hand smoke: No Alcohol Use: None Drug Use: none Patient Lives Alone: No Significant Family History: no pertinent family hx - Nursing Vital Signs Nursing Vital Signs: Initial Vital Signs Pulse Rate 60 10/13/22 22:19 Respiratory Rate 18 08/28/23 22:19 Blood Pressure 212/95 08/28/23 22:19 O2 Sat by Pulse Oximetry 97 10/13/22 22:19 Pain Scale Pain Intensity 9 Hypertensive - Hewitt Coma Score Best Eye Response (Hewitt): (4) open spontaneously Best Verbal Response (Gisela): (5) oriented Best Motor Response (Hewitt): (6) obeys commands Gisela Total: 15 - Physical Exam General Appearance: no apparent distress Head Injury: no evidence of injury Eye Exam: PERRL/EOMI, eyes nml inspection ENT Exam: airway nml, No clear fluid (ears), No clear fluid (nose) Neck Exam: supple, trachea midline (C-spine NTTP) Respiratory/Chest Exam: normal breath sounds, No respiratory distress Cardiovascular Exam: normal heart sounds, regular rate/rhythm, No murmur Gastrointestinal Exam: soft, normal bowel sounds, No tenderness Back Exam: normal inspection, No vertebral tenderness Extremity Exam: pelvis stable, other (L shoulder markedly TTP/L olecranon w abrasions/Good radial pulse, distal sensation, and capillary return) Neurologic Exam: alert, 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, cooperative, nurse practitioner physicians assistant II-XII nml as tested, normal mood/affect, sensation nml Skin Exam: normal color, warm, dry SpO2 Interpretation: borderline oxygenation SpO2: 92 O2 Delivery: Room Air - Course Nursing assessment & vital signs reviewed: Yes - Radiology Exams Shoulder X-ray Interpretation: Interpreted by me (L humoral head fx) Elbow X-ray Interpretation: Interpreted by me (No fx w only 1 view done due to pain) Ordered Tests: Active Orders 24 hr Category Date Time Status Sling Application STAT Care 10/13/22 23:23 Active ELBOW (2 VIEW) Stat Exams 10/13/22 22:52 Taken SHOULDER Stat Exams 10/13/22 22:51 Taken Medication Summary Discontinued Medications Generic Name Dose Route Start Last Admin Trade Name Freq PRN Reason Stop Dose Admin Hydrocodone Bitart/Acetaminophen 2 tab 10/13/22 23:43 10/13/22 23:56 Hydrocodone/Apap 5/325 1 Tab Tablet PO 10/13/22 23:44 2 tab SENT HOME W/ PATIENT ONE Administration Hydrocodone Bitart/Acetaminophen Confirm 10/13/22 23:48 Hydrocodone/Apap 5/325 1 Tab Tablet Administered 10/13/22 23:49 Dose 2 tab .ROUTE .STK-MED ONE - Progress Progress: improved Progress Note: 10/14/22 00:15 Nursing note and vital signs reviewed No food or housing insecurities noted Additional history per EMS Pt refused all pain meds during stay/EMS gave 100mcg IV Fentanyl-4mg IV Zofran Pt would like to f/u w her orthopod Dr. Yeni ARIAS per nursing/[facility] [facility] sent Counseled pt/family regarding: diagnosis, need for follow-up, rad results Medical Desision Making - Independent Historian Additional History obtained from: EMS - Diagnostic Testing Radiological Interpretation: Interpreted by me - Risk of complications The pt has a mod risk of morbidity or mortality based on: Need for prescription drug management - Departure Departure Disposition: Home Clinical Impression: Left humeral fracture, Contusion of left elbow Condition: Stable Critical Care Time: No Referrals: FRANKI TOBAR MD [Primary Care Provider] - Follow up/PCP as directed Instructions: Contusion (DC), Preventing falls in adults, Shoulder Fracture (DC) Additional Instructions: Follow up with your orthopedic surgeon, Dr. Jaime or in the ortho clinic M-Fr 8-10 Pain meds as needed(Use stool softener w pain meds) Ice for 12-24 hours Prescriptions: Hydrocodone/Acetaminophen [Hydrocodone-Acetamin 5-325 mg] 1 tab PO Q6HPRN PRN #7 tablet MDD 4 PRN Reason: Pain
[2022-10-13 23:36] VITALS: RESP 20
[2022-10-13] MEDS ORDERED: NORCO 5/325 MG PO ONE (23:43)
[2022-10-13] MEDS ORDERED: NORCO 5/325 MG ONE (23:48)
[2022-10-14 00:04] VITALS: BP 162/90; PULSE 61
[2022-10-14 00:19] VITALS: O2SAT 92
--- NOTE | 2022-10-14 08:40 | XRAY ---
Indication: Pain following fall. Comparison: None 3 portable views left shoulder demonstrates comminuted impacted humeral head fracture. Elsewhere osteopenia, moderate AC degenerative arthropathy, and tiny left lung calcified granuloma. No other bony, articular, or soft tissue abnormalities.
--- NOTE | 2022-10-14 08:40 | XRAY ---
Indication: Pain following fall. Comparison: None Single lateral view left elbow demonstrates osteopenia. No other bony, articular, or soft tissue abnormalities.
== END 2022-10-14 00:20 | disposition home or self-care (01) ==
LOC: ED 22:19
DX: S42.292A Other displaced fracture of upper end of left humerus, initial encounter for closed fracture (principal); S50.02XA Contusion of left elbow, initial encounter; W18.39XA Other fall on same level, initial encounter; Y92.007 Garden or yard of unspecified non-institutional (private) residence as the place of occurrence of the external cause; I11.0 Hypertensive heart disease with heart failure; I50.9 Heart failure, unspecified; Z79.891 Long term (current) use of opiate analgesic; Z79.899 Other long term (current) drug therapy
CPT/HCPCS: 73030; 73070; 99283; A9270-GY

== ENCOUNTER 2023-02-13 22:02 | Inpatient (IN) | payer MEDICARE ==
--- NOTE | 2023-02-13 22:16 | ERPHSYRPT ---
- History of Present Illness Time Seen by Provider: 02/13/23 22:15 Source: patient Exam Limitations: no limitations Physician History: This is an obese 82-year-old white female patient of Dr. Tobar who also sees a pipe organ builder Dr. Hernandez and who sees nephrology, Dr. Bird presents from home via the ambulance/cell builder service because of increasing shortness of breath cough and wheezing for 4 days. Patient was brought in by the paramedics. They provided the patient with DuoNeb treatment and 125 mg IV Solu-Medrol. Patient currently denies chest pain. Patient has a history of hypertension, CHF and COPD. She does not normally wear oxygen for her COPD but on 2 L of oxygen via nasal cannula, on arrival to the emergency department she is running 96%. Patient has a history of anxiety, diverticulosis, gastroesophageal reflux disease. Timing/Duration: today Activities at Onset: activity Severity of Dyspnea-Max: moderate Possible Cause: frequent episodes Modifying Factors: Improves With: coughing Associated Symptoms: cough, wheezing, weakness, No anxiety, No chest pain/discomfort Allergies/Adverse Reactions: vancomycin Adverse Reaction (Severe, Verified 02/13/23 22:33) pt states causes kidney damage ALLERGIC TO IV ONLY IV contrast dye Adverse Reaction (Severe, Uncoded 02/13/23 22:33) Home Medications: Aspirin EC 81 mg [Ecotrin 81 mg] 81 mg PO DAILY 11/04/18 [History] Furosemide 20 mg [Lasix 20 mg] 40 mg PO DAILY 06/07/19 [History] ALPRAZolam [Alprazolam ER] 0.25 mg PO BID PRN 07/16/19 [History] lisinopriL [Lisinopril] 40 mg PO DAILY 07/16/19 [History] Donepezil HCl [Aricept] 5 mg PO QHS 11/04/21 [History] Ferrous Sulfate [Iron] 325 mg PO BID 11/04/21 [History] Metoprolol Succinate 25 mg Xl* [Toprol-Xl 25MG Tablets] 25 mg PO DAILY 11/04/21 [History] Prednisone 10 mg [Deltasone 10 mg] 20 mg PO DAILY 11/04/21 [History] Sertraline HCl 50 mg [Zoloft 50 mg Tablet] 50 mg PO DAILY 11/04/21 [History] Losartan/Hydrochlorothiazide [Losartan-Hctz 100-25 mg Tab] 1 each PO 02/13/23 [History] Hx Tetanus, Diphtheria Vaccination/Date Given: Yes Hx Influenza Vaccination/Date Given: Yes Hx Pneumococcal Vaccination/Date Given: Yes Travel Risk - International Travel Have you traveled outside of the country in past 3 weeks: No - Coronavirus Screening Are you exhibiting any of the following symptoms?: Yes Symptoms: Cough: New Onset, Shortness of Breath - Vaccine Status Have you recieved a Covid-[address] vaccination: [address] Registry Officer: Moderna - Vaccination Dates Date of 2cond Vaccination (if applicable): unknown - Review of Systems Constitutional: Weakness Eyes: No Symptoms Ears, Nose, & Throat: No Symptoms Respiratory: Cough, Dyspnea, Wheezing Abdominal/Gastrointestinal: No Symptoms Genitourinary Symptoms: No Symptoms Musculoskeletal: No Symptoms Skin: No Symptoms Neurological: No Symptoms Psychological: No Symptoms Endocrine: No Symptoms Hematologic/Lymphatic: No Symptoms Immunological/Allergic: No Symptoms All Other Systems: Reviewed and Negative - Past Medical History Pertinent Past Medical History: Yes Neurological History: No Pertinent History ENT History: Cataracts Cardiac History: Congestive Heart Failure, Hypertension Respiratory History: COPD Endocrine Medical History: Other Musculoskeletal History: No Pertinent History GI Medical History: Diverticulitis, Diverticulosis, GERD, Other History: Other Psycho-Social History: Anxiety Female Reproductive Disorders: No Pertinent History Other Medical History: KIDNEYS, 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 B TKA. - Past Surgical History Past Surgical History: Yes Neuro Surgical History: No Pertinent History Cardiac: No Pertinent History Respiratory: No Pertinent History Gastrointestinal: Appendectomy, Cholecystectomy, Colon Resection Genitourinary: No Pertinent History Musculoskeletal: Joint Replacement, Orthopedic Surgery Female Surgical History: Hysterectomy Other Surgical History: brittney knees, brittney wrist,. Skin cancer removed from face 2005. colostomy - Social History Smoking Status: Former smoker Exposure to second hand smoke: No Alcohol Use: None Drug Use: none Patient Lives Alone: No Significant Family History: no pertinent family hx - Nursing Vital Signs Nursing Vital Signs: Initial Vital Signs Temperature 97.6 F 02/13/23 22:03 Pulse Rate 80 02/13/23 22:03 Respiratory Rate 22 02/13/23 22:03 Blood Pressure 174/85 02/13/23 22:03 O2 Sat by Pulse Oximetry 99 02/13/23 22:03 Pain Scale Pain Intensity 0 - Physical Exam General Appearance: mild distress, alert, anxiety, obese Eye Exam: PERRL/EOMI, eyes nml inspection Ears, Nose, Throat Exam: hearing grossly normal, normal ENT inspection, normal pharynx Neck Exam: normal inspection, non-tender, supple, full range of motion Respiratory Exam: respiratory distress (Mild), airway intact, rhonchi, wheezing, No chest tenderness Cardiovascular/Chest Exam: normal heart sounds, regular rate/rhythm Abdominal/Gastrointestinal Exam: soft, normal bowel sounds, No tenderness Rectal Exam: not done Extremity Exam: non-tender, normal range of motion, normal inspection, normal capillary refill, no calf tenderness, no pedal edema, pelvis stable Neurologic Exam: alert, 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, cooperative, hearing instrument specialist II-XII nml as tested, normal mood/affect, sensation nml Skin Exam: normal color, warm, dry Lymphatic Exam: No adenopathy SpO2 Interpretation: O2 applied SpO2: 99 O2 Delivery: Nasal Cannula (3 liters) - Course Nursing assessment & vital signs reviewed: Yes EKG Interpreted by Me: RATE, Sinus Rhythm, LAFB, NORMAL INTERVALS, Right Bundle Branch Block, Other (No acute ischemic changes on today's twelve-lead EKG.) Ordered Tests: Active Orders 24 hr Category Date Time Status Floral Artist STAT Care 02/13/23 22:47 Active EKG-ER Only STAT Care 02/13/23 22:46 Active IV Insertion STAT Care 02/13/23 22:46 Active Oxygen-ED Only Nasal Cannula 2 lpm Care 02/13/23 22:46 Active Pulse Oximetry (ED) STAT Care 02/13/23 22:46 Active CHEST 1 VIEW (PORTABLE) Stat Exams 02/13/23 22:47 Taken BLOOD CULTURE Stat Lab 02/13/23 23:10 Received CBC W DIFF Stat Lab 02/13/23 23:05 Completed CMP Stat Lab 02/13/23 23:05 Completed NT PRO BNPII Stat Lab 02/13/23 23:05 Completed PROTIME WITH INR Stat Lab 02/13/23 23:05 Completed TROPONIN Q4H Lab 02/13/23 23:05 Completed TROPONIN Q4H Lab 02/14/23 03:00 Ordered TROPONIN Q4H Lab 02/14/23 07:00 Ordered Respiratory Therapy Assessment UD RT 02/13/23 22:41 Active Medication Summary Discontinued Medications Generic Name Dose Route Start Last Admin Trade Name Jacey PRN Reason Stop Dose Admin Hydrocodone Bitart/Acetaminophen 10 ml 02/14/23 00:19 Hydrocodone/Acetaminophen 5 Ml Udcup PO 02/14/23 00:20 STAT STA Albuterol Sulfate 2.5 mg 02/14/23 00:01 02/14/23 00:10 Albuterol Sulfate 2.5 Mg/3 Ml Neb IH 02/14/23 00:02 2.5 mg STAT ONE Administration Albuterol Sulfate Confirm 02/14/23 00:11 Albuterol Sulfate 2.5 Mg/3 Ml Neb Administered 02/14/23 00:12 Dose 2.5 mg IH .STK-MED ONE Furosemide 40 mg 02/14/23 00:20 Furosemide 40 Mg/4 Ml Vial IV 02/14/23 00:21 STAT ONE Ceftriaxone Sodium/Dextrose 1 g in 50 mls @ 100 mls/hr 02/13/23 23:39 02/13/23 23:54 Rocephin 1 Gm-D5w 50 Ml Bag IV 02/14/23 00:08 100 ml/hr STAT STA 100 mls/hr Administration Ceftriaxone Sodium/Dextrose Confirm 02/13/23 23:50 Rocephin 1 Gm-D5w 50 Ml Bag Administered 02/13/23 23:51 Dose 1 g in 50 mls @ ud IV .STK-MED ONE Potassium Chloride 20 meq 02/13/23 23:39 02/13/23 23:53 Potassium Chloride Tab 10 Meq Tab PO 02/13/23 23:40 20 meq STAT ONE Administration Potassium Chloride Confirm 02/13/23 23:50 Potassium Chloride Tab 10 Meq Tab Administered 02/13/23 23:51 Dose 20 meq PO .STK-MED ONE Lab/Rad Data: Laboratory Result Diagrams 02/13/23 23:05 02/13/23 23:05 Laboratory Results 02/13/23 02/13/23 02/13/23 Range/Units 23:10 23:05 23:05 WBC (4.0-10.5) x10^3/uL RBC (4.1-5.4) x10^6/uL Hgb (12.0-16.0) g/dL Hct (35-47) % MCV (78-100) fL MCH (26-32) pg MCHC (32-36) g/dL RDW (11.5-14.0) % Plt Count (150-450) x10^3/uL MPV (7.5-11.0) fL Gran % (36.0-66.0) % Immature Gran % (Auto) (0.00-0.4) % Nucleat RBC Rel Count (0.00-0.1) % Eos # (Auto) (0-0.5) x10^3/uL Immature Gran # (Auto) (0.00-0.03) x10^3u/L Absolute Lymphs (auto) (1.0-4.6) x10^3/uL Absolute Monos (auto) (0.0-1.3) x10^3/uL Absolute Nucleated RBC (0.00-0.01) x10^3u/L Lymphocytes % (24.0-44.0) % Monocytes % (0.0-12.0) % Eosinophils % (0.00-5.0) % Basophils % (0.0-0.4) % Absolute Granulocytes (1.4-6.9) x10^3/uL Basophils # (0-0.4) x10^3/uL PT (9.4-12.5) SECONDS INR (0.8-3.0) Sodium 137 (137-145) mmol/L Potassium 3.2 L (3.5-5.1) mmol/L Chloride 104 (98-107) mmol/L Carbon Dioxide 26 (22-30) mmol/L Anion Gap 11.0 (5-15) MEQ/L BUN 18 H (7-17) mg/dL Creatinine 1.27 H (0.52-1.04) mg/dL Estimated GFR 42.5 ML/MIN Glucose 195 H (74-106) mg/dL Calcium 8.2 L (8.4-10.2) mg/dL Total Bilirubin 0.60 (0.2-1.3) mg/dL AST 15 (14-36) U/L ALT 13 (0-35) U/L Alkaline Phosphatase 57 (38-126) U/L Troponin I 0.028 (0.000-0.034) ng/mL NT-Pro-B Natriuret Pep 4480 (<300) pg/mL Serum Total Protein 6.3 (6.3-8.2) g/dL Albumin 3.5 (3.5-5.0) g/dL Influenza Type A Ag NEGATIVE (NEGATIVE) Influenza Type B Ag NEGATIVE (NEGATIVE) RSV (PCR) POSITIVE (NEGATIVE) SARS-CoV-2 (PCR) NEGATIVE (NEGATIVE) 02/13/23 02/13/23 Range/Units 23:05 23:05 WBC 8.3 (4.0-10.5) x10^3/uL RBC 3.58 L (4.1-5.4) x10^6/uL Hgb 10.5 L (12.0-16.0) g/dL Hct 34.2 L (35-47) % MCV 95.5 (78-100) fL MCH 29.3 (26-32) pg MCHC 30.7 L (32-36) g/dL RDW 14.3 H (11.5-14.0) % Plt Count 182 (150-450) x10^3/uL MPV 10.2 (7.5-11.0) fL Gran % 77.8 H (36.0-66.0) % Immature Gran % (Auto) 0.8 H (0.00-0.4) % Nucleat RBC Rel Count 0.0 (0.00-0.1) % Eos # (Auto) 0.25 (0-0.5) x10^3/uL Immature Gran # (Auto) 0.07 H (0.00-0.03) x10^3u/L Absolute Lymphs (auto) 0.73 L (1.0-4.6) x10^3/uL Absolute Monos (auto) 0.75 (0.0-1.3) x10^3/uL Absolute Nucleated RBC 0.00 (0.00-0.01) x10^3u/L Lymphocytes % 8.8 L (24.0-44.0) % Monocytes % 9.1 (0.0-12.0) % Eosinophils % 3.0 (0.00-5.0) % Basophils % 0.5 (0.0-0.4) % Absolute Granulocytes 6.42 (1.4-6.9) x10^3/uL Basophils # 0.04 (0-0.4) x10^3/uL PT 11.5 (9.4-12.5) SECONDS INR 1.06 (0.8-3.0) Sodium (137-145) mmol/L Potassium (3.5-5.1) mmol/L Chloride (98-107) mmol/L Carbon Dioxide (22-30) mmol/L Anion Gap (5-15) MEQ/L BUN (7-17) mg/dL Creatinine (0.52-1.04) mg/dL Estimated GFR ML/MIN Glucose (74-106) mg/dL Calcium (8.4-10.2) mg/dL Total Bilirubin (0.2-1.3) mg/dL AST (14-36) U/L ALT (0-35) U/L Alkaline Phosphatase (38-126) U/L Troponin I (0.000-0.034) ng/mL NT-Pro-B Natriuret Pep (<300) pg/mL Serum Total Protein (6.3-8.2) g/dL Albumin (3.5-5.0) g/dL Influenza Type A Ag (NEGATIVE) Influenza Type B Ag (NEGATIVE) RSV (PCR) (NEGATIVE) SARS-CoV-2 (PCR) (NEGATIVE) - Progress Progress: improved, re-examined Air Movement: fair Progress Note: 02/13/23 23:08 This patient's medical issue is 1 of moderate to high complexity. Level complex in the workup performed is based on review the patient's past medical history, review the patient's medication list, review of the drug allergy list, history present illness and physical findings on examination. Workup in this patient includes placement of intravenous line, twelve-lead EKG, troponin level, chest x-ray, CBC, CMP, BNP level. Will also obtain viral swabs and monotest. 02/14/23 00:31 I reviewed and interpreted the patient's laboratory data. Patient has a normal troponin level. She has an elevated BNP level. She has a normal white count but a left shift. Clinically, patient presented with wheezing and rhonchi bilaterally. I interpreted the chest x-ray as well which shows right lower lobe infiltrate versus fluid versus both infiltrate and fluid. Patient's viral swabs are positive for RSV. I spoke with Dr. Gerda Kramer, our telehospitalist on at this time. I reviewed the patient history, presenting complaint, workup performed and the results of that workup as well as the patient response to our management. He agrees to place this patient in observation. We will provide the patient with IV steroids, intravenous antibiotics, intravenous Lasix and respiratory therapy treatments. Blood Culture(s) Obtained: Yes Discussed with : Colleen Counseled pt/family regarding: lab results, diagnosis, rad results Medical Desision Making - Independent Historian Additional History obtained from: Child - Discussion of managment Care discussed with:: hospitalist Reviewed:: Test results, Need for additional workup Agreed on:: place in obs - Diagnostic Testing Diagnostic test were ordered, analyzed, and reviewed by me: Yes Radiological Interpretation: Interpreted by me - Risk of complications The pt has a high risk of morbidity or mortality based on: Decision regarding hospitilization or escalation of hosp level of care - Departure Departure Disposition: Observation Clinical Impression: RSV (acute bronchiolitis due to respiratory syncytial virus), Right lower lobe pulmonary infiltrate, Elevated brain natriuretic peptide (BNP) level Condition: Fair Critical Care Time: No Referrals: FRANKI TOBAR MD [Primary Care Provider] - Follow up/PCP as directed
[2023-02-13 23:19] LABS: Absolute Neutrophil Ct (ANC) 6.42 x10^3/uL (1.4-6.9); BASOPHIL % 0.5 % (0.0-0.4); Basophil (Absolute #) 0.04 x10^3/uL (0-0.4); Eosinophil (Absolute #) 0.25 x10^3/uL (0-0.5); Hematocrit 34.2 % (35-47); Hemoglobin 10.5 g/dL (12.0-16.0); IMMATURE GRAN # 0.07 x10^3u/L (0.00-0.03); IMMATURE GRAN % 0.8 % (0.00-0.4); Lymphocyte (Absolute #) 0.73 x10^3/uL (1.0-4.6); Lymphocytes % 8.8 % (24.0-44.0); Mean Cell Volume 95.5 fL (78-100); Mean Corpuscular Hemoglobin 29.3 pg (26-32); Mean Corpuscular Hgb Concent. 30.7 g/dL (32-36); Mean Platelet Volume 10.2 fL (7.5-11.0); Monocyte (Absolute #) 0.75 x10^3/uL (0.0-1.3); Monocytes % 9.1 % (0.0-12.0); Neutrophil % 77.8 % (36.0-66.0); Platelet Count 182 x10^3/uL (150-450); Red Blood Count 3.58 x10^6/uL (4.1-5.4); Red Cell Distribution Width 14.3 % (11.5-14.0); White Blood Count 8.3 x10^3/uL (4.0-10.5)
[2023-02-13 23:28] LABS: INR 1.06 (0.8-3.0); PROTIME 11.5 SECONDS (9.4-12.5)
[2023-02-13 23:29] LABS: ALBUMIN 3.5 g/dL (3.5-5.0); BILIRUBIN,TOTAL 0.6 mg/dL (0.2-1.3); Calcium 8.2 mg/dL (8.4-10.2); Creatinine 1 1.27 mg/dL (0.52-1.04); EST GLOMERULAR FILTRATION RATE 42.5 ML/MIN; Potassium 3.2 mmol/L (3.5-5.1); Total Protein 6.3 g/dL (6.3-8.2)
[2023-02-13] MEDS ORDERED: ROCEPHIN 1 Gm-D5w 50 ml Bag** 1 G/50 ML IVPB IV STA (23:39)
[2023-02-13] MEDS ORDERED: Klor Con PO ONE ×2 (23:39→23:50)
[2023-02-13] MEDS ORDERED: ROCEPHIN 1 Gm-D5w 50 ml Bag** 1 G/50 ML IVPB IV ONE (23:50)
[2023-02-13 23:54] LABS: INFLUENZA A NEGATIVE (NEGATIVE); INFLUENZA B NEGATIVE (NEGATIVE); SARS-CoV-2 Xpert Express NEGATIVE (NEGATIVE)
[2023-02-14] LABS: RESPIRATORY SYNCTIAL VIRUS POSITIVE (NEGATIVE)
[2023-02-14] MEDS ORDERED: PROVENTIL 2.5 MG/3 ML NEB IH ONE ×2 (00:01→00:11)
[2023-02-14] MEDS ORDERED: HYDROCODONE-ACETAMIN 2.5-108/5 ML SOLUTION PO STA (00:19)
[2023-02-14] MEDS ORDERED: Lasix 40 MG/4 ML IV ONE (00:20)
--- NOTE | 2023-02-14 00:37 | PCM.HP ---
History of Present Illness - Chief Complaint Chief Complaint: SOB History of Present Illness: is a 82 year old female with COPD, CHF who presents with 4 days of progressively worsening sob, cough, wheezing. Patient was brought into the ED where she was given 125 mg of IV solumedrol, duonebs and 2-3 liters of NC and appeared to improve but still had wheezing, so ED provider requested admission. Work up also revealed RSV+ and a pBNP elevated. Patient denies fevers, chills, nausea, vomiting, diarrhea or worsening swelling. - Review of Systems Constitutional: No Fever, No Chills Eyes: No Symptoms Ears, Nose, & Throat: No Symptoms Respiratory: Cough, Short Of Breath Cardiac: No Chest Pain, No Edema, No Syncope Abdominal/Gastrointestinal: No Abdominal Pain, No Nausea, No Vomiting, No Diarrhea Genitourinary Symptoms: No Dysuria Musculoskeletal: No Back Pain, No Neck Pain Skin: No Rash Neurological: No Dizziness, No Focal Weakness, No Sensory Changes Psychological: No Symptoms Endocrine: No Symptoms Hematologic/Lymphatic: No Symptoms Immunological/Allergic: No Symptoms Medications & Allergies Home Medications: Home Medication List Aspirin EC 81 mg [Ecotrin 81 mg] 81 mg PO DAILY 11/04/18 [History Confirmed 02/13/23] Furosemide 20 mg [Lasix 20 mg] 40 mg PO DAILY 06/07/19 [History Confirmed 02/13/23] ALPRAZolam [Alprazolam ER] 0.25 mg PO BID PRN 07/16/19 [History Confirmed 02/13/23] lisinopriL [Lisinopril] 40 mg PO DAILY 07/16/19 [History Confirmed 02/13/23] Donepezil HCl [Aricept] 5 mg PO QHS 11/04/21 [History Confirmed 02/13/23] Ferrous Sulfate [Iron] 325 mg PO BID 11/04/21 [History Confirmed 02/13/23] Metoprolol Succinate 25 mg Xl* [Toprol-Xl 25MG Tablets] 25 mg PO DAILY 11/04/21 [History Confirmed 02/13/23] Prednisone 10 mg [Deltasone 10 mg] 20 mg PO DAILY 11/04/21 [History Confirmed 02/13/23] Sertraline HCl 50 mg [Zoloft 50 mg Tablet] 50 mg PO DAILY 11/04/21 [History Confirmed 02/13/23] Hydrocodone/Acetaminophen [Hydrocodone-Acetamin 5-325 mg] 1 tab PO Q6HPRN PRN #7 tablet MDD 4 10/13/22 [Rx Confirmed 02/13/23] Losartan/Hydrochlorothiazide [Losartan-Hctz 100-25 mg Tab] 1 each PO 02/13/23 [History] Allergies/Adverse Reactions: Allergies Allergy/AdvReac Type Severity Reaction Status Date / Time vancomycin AdvReac Severe Verified 02/13/23 22:33 IV contrast dye AdvReac Severe Uncoded 02/13/23 22:33 - Past Medical History Past Medical History: Yes Neurological History: No Pertinent History ENT History: Cataracts Cardiac History: Congestive Heart Failure, Hypertension Respiratory History: COPD Endocrine Medical History: Other Musculoskelatal History: No Pertinent History GI Medical History: Diverticulitis, Diverticulosis, GERD, Other History: Other Pyscho-Social History: Anxiety Reproductive Disorders: No Pertinent History Comment: KIDNEYS, 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 B TKA. - Past Surgical History Past Surgical History: Yes Neuro Surgical History: No Pertinent History Cardiac History: No Pertinent History Respiratory Surgery: No Pertinent History GI Surgical History: Appendectomy, Cholecystectomy, Colon Resection Genitourinary Surgical Hx: No Pertinent History Musculskeletal Surgical Hx: Joint Replacement, Orthopedic Surgery Female Surgical History: Hysterectomy Other Surgical History: brittney knees, brittney wrist,. Skin cancer removed from face 2005. colostomy - Social History Smoking Status: Former smoker Exposure to second hand smoke: No Alcohol: None Drug Use: none Significant Family History: no pertinent family hx - Physical Exam Vital Signs: Vital Signs - 24 hr Temp Pulse Resp BP BP Pulse Ox 02/14/23 00:23 99 02/14/23 00:10 71 20 97 02/13/23 23:30 80 19 148/62 95 02/13/23 23:13 79 18 169/81 96 02/13/23 22:46 94 L 02/13/23 22:35 94 L 02/13/23 22:30 90 18 152/80 02/13/23 22:14 22 97 02/13/23 22:03 97.6 F 80 22 174/85 99 General Appearance: no apparent distress, alert Neurologic Exam: alert, 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, cooperative, normal mood/affect, nml cerebellar function, nml station & gait, sensation nml, No motor deficits Eye Exam: PERRL/EOMI, eyes nml inspection Ears, Nose, Throat Exam: normal ENT inspection, TMs normal, pharynx normal, moist mucous membranes Neck Exam: normal inspection, non-tender, supple, full range of motion Respiratory Exam: normal breath sounds, lungs clear, No respiratory distress Cardiovascular Exam: regular rate/rhythm, normal heart sounds, normal peripheral pulses Gastrointestinal/Abdomen Exam: soft, normal bowel sounds, No tenderness, No mass Back Exam: normal inspection, normal range of motion, No CVA tenderness, No vertebral tenderness Extremity Exam: normal inspection, normal range of motion, pelvis stable Skin Exam: normal color, warm, dry, No rash Lymphatic Exam: No adenopathy Results - Labs Lab/Micro Results: Lab Results-Last 24 Hours 02/13/23 02/13/23 02/13/23 Range/Units 23:05 23:05 23:05 WBC 8.3 (4.0-10.5) x10^3/uL RBC 3.58 L (4.1-5.4) x10^6/uL Hgb 10.5 L (12.0-16.0) g/dL Hct 34.2 L (35-47) % MCV 95.5 (78-100) fL MCH 29.3 (26-32) pg MCHC 30.7 L (32-36) g/dL RDW 14.3 H (11.5-14.0) % Plt Count 182 (150-450) x10^3/uL MPV 10.2 (7.5-11.0) fL Gran % 77.8 H (36.0-66.0) % Immature Gran % (Auto) 0.8 H (0.00-0.4) % Nucleat RBC Rel Count 0.0 (0.00-0.1) % Eos # (Auto) 0.25 (0-0.5) x10^3/uL Immature Gran # (Auto) 0.07 H (0.00-0.03) x10^3u/L Absolute Lymphs (auto) 0.73 L (1.0-4.6) x10^3/uL Absolute Monos (auto) 0.75 (0.0-1.3) x10^3/uL Absolute Nucleated RBC 0.00 (0.00-0.01) x10^3u/L Lymphocytes % 8.8 L (24.0-44.0) % Monocytes % 9.1 (0.0-12.0) % Eosinophils % 3.0 (0.00-5.0) % Basophils % 0.5 (0.0-0.4) % Absolute Granulocytes 6.42 (1.4-6.9) x10^3/uL Basophils # 0.04 (0-0.4) x10^3/uL PT 11.5 (9.4-12.5) SECONDS INR 1.06 (0.8-3.0) Sodium (137-145) mmol/L Potassium (3.5-5.1) mmol/L Chloride (98-107) mmol/L Carbon Dioxide (22-30) mmol/L Anion Gap (5-15) MEQ/L BUN (7-17) mg/dL Creatinine (0.52-1.04) mg/dL Estimated GFR ML/MIN Glucose (74-106) mg/dL Calcium (8.4-10.2) mg/dL Total Bilirubin (0.2-1.3) mg/dL AST (14-36) U/L ALT (0-35) U/L Alkaline Phosphatase (38-126) U/L Troponin I 0.028 (0.000-0.034) ng/mL NT-Pro-B Natriuret Pep (<300) pg/mL Serum Total Protein (6.3-8.2) g/dL Albumin (3.5-5.0) g/dL Influenza Type A Ag (NEGATIVE) Influenza Type B Ag (NEGATIVE) RSV (PCR) (NEGATIVE) SARS-CoV-2 (PCR) (NEGATIVE) 02/13/23 02/13/23 Range/Units 23:05 23:10 WBC (4.0-10.5) x10^3/uL RBC (4.1-5.4) x10^6/uL Hgb (12.0-16.0) g/dL Hct (35-47) % MCV (78-100) fL MCH (26-32) pg MCHC (32-36) g/dL RDW (11.5-14.0) % Plt Count (150-450) x10^3/uL MPV (7.5-11.0) fL Gran % (36.0-66.0) % Immature Gran % (Auto) (0.00-0.4) % Nucleat RBC Rel Count (0.00-0.1) % Eos # (Auto) (0-0.5) x10^3/uL Immature Gran # (Auto) (0.00-0.03) x10^3u/L Absolute Lymphs (auto) (1.0-4.6) x10^3/uL Absolute Monos (auto) (0.0-1.3) x10^3/uL Absolute Nucleated RBC (0.00-0.01) x10^3u/L Lymphocytes % (24.0-44.0) % Monocytes % (0.0-12.0) % Eosinophils % (0.00-5.0) % Basophils % (0.0-0.4) % Absolute Granulocytes (1.4-6.9) x10^3/uL Basophils # (0-0.4) x10^3/uL PT (9.4-12.5) SECONDS INR (0.8-3.0) Sodium 137 (137-145) mmol/L Potassium 3.2 L (3.5-5.1) mmol/L Chloride 104 (98-107) mmol/L Carbon Dioxide 26 (22-30) mmol/L Anion Gap 11.0 (5-15) MEQ/L BUN 18 H (7-17) mg/dL Creatinine 1.27 H (0.52-1.04) mg/dL Estimated GFR 42.5 ML/MIN Glucose 195 H (74-106) mg/dL Calcium 8.2 L (8.4-10.2) mg/dL Total Bilirubin 0.60 (0.2-1.3) mg/dL AST 15 (14-36) U/L ALT 13 (0-35) U/L Alkaline Phosphatase 57 (38-126) U/L Troponin I (0.000-0.034) ng/mL NT-Pro-B Natriuret Pep 4480 (<300) pg/mL Serum Total Protein 6.3 (6.3-8.2) g/dL Albumin 3.5 (3.5-5.0) g/dL Influenza Type A Ag NEGATIVE (NEGATIVE) Influenza Type B Ag NEGATIVE (NEGATIVE) RSV (PCR) POSITIVE (NEGATIVE) SARS-CoV-2 (PCR) NEGATIVE (NEGATIVE) - Radiology Impressions Radiology Exams & Impressions: Radiology Procedures Category Date Time Status CHEST 1 VIEW (PORTABLE) Stat Exams 02/13/23 22:47 Taken - Other Procedures and Tests Respiratory Therapy 02/13/23 22:41 Respiratory Therapy Assessment UD Assessment/Plan (1) Shortness of breath Current Visit: No Status: Acute Assessment & Plan: 1. Likely a combination of RSV infection, COPD. 2. Solumedrol 125 mg IV given in the ED, can likely do prednisone 40 mg daily tomorrow 3. Continue duonebs 4. Continue supplemental oxygen 5. No WBC, fever - abx given in the ED but don't see a need to continue Code(s): R06.02 - SHORTNESS OF BREATH Telemedicine Encounter - Telemedicine Encounter Telemedicine Encounter: The entirety of this encounter was performed via Telemedicine"
[2023-02-14] MEDS ORDERED: HYDROCODONE-ACETAMIN 2.5-108/5 ML SOLUTION ONE (00:48)
[2023-02-14] MEDS ORDERED: Lasix 40 MG/4 ML ONE (00:48)
[2023-02-14] MEDS ORDERED: Sodium Chloride 0.9% 1000 ML 1,000 ML IV SCH (01:00)
[2023-02-14] MEDS ORDERED: TYLENOL 325 MG PO PRN (01:00)
[2023-02-14] MEDS ORDERED: Zofran 4 MG/2 ML VIAL IV PRN (01:00)
[2023-02-14] MEDS ORDERED: Sodium Chloride 0.9% 1000 ML 0 ML ONE (01:17)
[2023-02-14] MEDS ORDERED: NORCO 5/325 MG PO PRN (01:25)
[2023-02-14] MEDS ORDERED: ALPRAZOLAM 1 MG PO SCH (01:30)
[2023-02-14] MEDS: PROVENTIL 2.5 MG/3 ML NEB IH SCH ×6 (02:32→23:00)
[2023-02-14] MEDS ORDERED: DUONEB 0.5-3 MG/3 ml Neb IH SCH (03:00)
[2023-02-14 03:07] LABS: Absolute Neutrophil Ct (ANC) 9.41 x10^3/uL (1.4-6.9); BASOPHIL % 0.3 % (0.0-0.4); Basophil (Absolute #) 0.03 x10^3/uL (0-0.4); Eosinophil (Absolute #) 0 x10^3/uL (0-0.5); Hemoglobin 11.1 g/dL (12.0-16.0); IMMATURE GRAN # 0.07 x10^3u/L (0.00-0.03); IMMATURE GRAN % 0.7 % (0.00-0.4); Mean Cell Volume 95.2 fL (78-100); Mean Corpuscular Hemoglobin 29.4 pg (26-32); Mean Corpuscular Hgb Concent. 30.8 g/dL (32-36); Monocyte (Absolute #) 0.19 x10^3/uL (0.0-1.3); Monocytes % 1.9 % (0.0-12.0); Neutrophil % 94.1 % (36.0-66.0); Platelet Count 186 x10^3/uL (150-450); Red Blood Count 3.78 x10^6/uL (4.1-5.4); Red Cell Distribution Width 14.3 % (11.5-14.0)
[2023-02-14 03:32] LABS: ALBUMIN 3.8 g/dL (3.5-5.0); ANION GAP 13.9 MEQ/L (5-15); BILIRUBIN,TOTAL 0.6 mg/dL (0.2-1.3); Calcium 8.3 mg/dL (8.4-10.2); Creatinine 1 1.24 mg/dL (0.52-1.04); EST GLOMERULAR FILTRATION RATE 43.7 ML/MIN; Potassium 3.6 mmol/L (3.5-5.1); Total Protein 6.8 g/dL (6.3-8.2)
[2023-02-14 05:05] LABS: Slide Review 1 YES
--- NOTE | 2023-02-14 05:19 | PCM.NOTE ---
Date and Time: 02/14/23 0514 Subjective Assessment: is a 82 year old female with COPD, CHF who presents with 4 days of progressively worsening sob, cough, wheezing. Patient was brought into the ED where she was given 125 mg of IV solumedrol, duonebs and 2-3 liters of NC and appeared to improve but still had wheezing, so ED provider requested admission. Work up also revealed RSV+ and a pBNP elevated. Patient denies fevers, chills, nausea, vomiting, diarrhea or worsening swelling. CXR showing new cardiomegaly and central vascular prominence concerning for cardiac decompensation/CHF versus fluid overload. New right infrahilar infiltrate/atelectasis and left midlung discoid atelectasis/scarring. 02/14: Met with patient bedside. She is RA at baseline requiring 2L of oxygen today. Endorses increased shortness of breath, dry cough, and wheezing. Lung auscultation with noted coarse breath sounds bilaterally and exp wheezing. Blood glucose levels are elevated, no history of diabetes but A1c is 7.15. Plan for continued diuresis, abx, steroids. Will add SSI for hyperglycemia. Patient will require follow up for blood glucose management on discharge. GFR is too low for CT w/ contrast. - Review of Systems Constitutional: Weakness Eyes: No Symptoms Ears, Nose, & Throat: No Symptoms Respiratory: Cough, Short Of Breath Cardiac: No Symptoms Abdominal/Gastrointestinal: No Symptoms Genitourinary Symptoms: No Symptoms Skin: No Symptoms Neurological: No Symptoms Psychological: No Symptoms Endocrine: No Symptoms Hematologic/Lymphatic: No Symptoms Immunological/Allergic: No Symptoms Objective Exam General Appearance: mild distress Neurologic Exam: alert, 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, cooperative Skin Exam: normal color Eye Exam: PERRL Ears, Nose, Throat Exam: dry mucous membranes Neck Exam: normal inspection Respiratory Exam: crackles/rales, wheezing Cardiovascular Exam: regular rate/rhythm, normal heart sounds Gastrointestinal/Abdomen Exam: soft, normal bowel sounds Extremity Exam: normal inspection Back Exam: normal inspection Pelvic Exam: deferred Rectal Exam: deferred OBJECTIVE DATA Vital Signs: Vital Signs - 24 hr Temp Pulse Resp BP BP Pulse Ox 02/14/23 04:00 97.7 F 74 18 153/66 97 02/14/23 02:30 77 20 97 02/14/23 02:00 76 153/66 96 02/14/23 01:31 97.5 F 78 20 195/79 95 02/14/23 00:39 99 02/14/23 00:10 71 20 97 02/13/23 23:30 80 19 148/62 95 02/13/23 23:13 79 18 169/81 96 02/13/23 22:46 94 L 02/13/23 22:35 94 L 02/13/23 22:30 90 18 152/80 02/13/23 22:14 22 97 02/13/23 22:03 97.6 F 80 22 174/85 99 Pain Assessment - Last Documented Pain Intensity 0 Intake and Output: Intake & Output 02/11/23 02/12/23 02/13/23 02/14/23 11:59 11:59 11:59 11:59 Intake Total 100 Output Total 600 Balance -500 Weight 119 kg Lab Results: Lab Results-Last 24 Hours 02/13/23 02/13/23 02/13/23 Range/Units 23:05 23:05 23:05 WBC 8.3 (4.0-10.5) x10^3/uL RBC 3.58 L (4.1-5.4) x10^6/uL Hgb 10.5 L (12.0-16.0) g/dL Hct 34.2 L (35-47) % MCV 95.5 (78-100) fL MCH 29.3 (26-32) pg MCHC 30.7 L (32-36) g/dL RDW 14.3 H (11.5-14.0) % Plt Count 182 (150-450) x10^3/uL MPV 10.2 (7.5-11.0) fL Gran % 77.8 H (36.0-66.0) % Immature Gran % (Auto) 0.8 H (0.00-0.4) % Nucleat RBC Rel Count 0.0 (0.00-0.1) % Eos # (Auto) 0.25 (0-0.5) x10^3/uL Immature Gran # (Auto) 0.07 H (0.00-0.03) x10^3u/L Absolute Lymphs (auto) 0.73 L (1.0-4.6) x10^3/uL Absolute Monos (auto) 0.75 (0.0-1.3) x10^3/uL Absolute Nucleated RBC 0.00 (0.00-0.01) x10^3u/L Lymphocytes % 8.8 L (24.0-44.0) % Monocytes % 9.1 (0.0-12.0) % Eosinophils % 3.0 (0.00-5.0) % Basophils % 0.5 (0.0-0.4) % Absolute Granulocytes 6.42 (1.4-6.9) x10^3/uL Basophils # 0.04 (0-0.4) x10^3/uL PT 11.5 (9.4-12.5) SECONDS INR 1.06 (0.8-3.0) Sodium (137-145) mmol/L Potassium (3.5-5.1) mmol/L Chloride (98-107) mmol/L Carbon Dioxide (22-30) mmol/L Anion Gap (5-15) MEQ/L BUN (7-17) mg/dL Creatinine (0.52-1.04) mg/dL Estimated GFR ML/MIN Glucose (74-106) mg/dL Calcium (8.4-10.2) mg/dL Total Bilirubin (0.2-1.3) mg/dL AST (14-36) U/L ALT (0-35) U/L Alkaline Phosphatase (38-126) U/L Troponin I 0.028 (0.000-0.034) ng/mL NT-Pro-B Natriuret Pep (<300) pg/mL Serum Total Protein (6.3-8.2) g/dL Albumin (3.5-5.0) g/dL Influenza Type A Ag (NEGATIVE) Influenza Type B Ag (NEGATIVE) RSV (PCR) (NEGATIVE) SARS-CoV-2 (PCR) (NEGATIVE) Slides for Path Review 02/13/23 02/13/23 02/14/23 Range/Units 23:05 23:10 03:00 WBC (4.0-10.5) x10^3/uL RBC (4.1-5.4) x10^6/uL Hgb (12.0-16.0) g/dL Hct (35-47) % MCV (78-100) fL MCH (26-32) pg MCHC (32-36) g/dL RDW (11.5-14.0) % Plt Count (150-450) x10^3/uL MPV (7.5-11.0) fL Gran % (36.0-66.0) % Immature Gran % (Auto) (0.00-0.4) % Nucleat RBC Rel Count (0.00-0.1) % Eos # (Auto) (0-0.5) x10^3/uL Immature Gran # (Auto) (0.00-0.03) x10^3u/L Absolute Lymphs (auto) (1.0-4.6) x10^3/uL Absolute Monos (auto) (0.0-1.3) x10^3/uL Absolute Nucleated RBC (0.00-0.01) x10^3u/L Lymphocytes % (24.0-44.0) % Monocytes % (0.0-12.0) % Eosinophils % (0.00-5.0) % Basophils % (0.0-0.4) % Absolute Granulocytes (1.4-6.9) x10^3/uL Basophils # (0-0.4) x10^3/uL PT (9.4-12.5) SECONDS INR (0.8-3.0) Sodium 137 (137-145) mmol/L Potassium 3.2 L (3.5-5.1) mmol/L Chloride 104 (98-107) mmol/L Carbon Dioxide 26 (22-30) mmol/L Anion Gap 11.0 (5-15) MEQ/L BUN 18 H (7-17) mg/dL Creatinine 1.27 H (0.52-1.04) mg/dL Estimated GFR 42.5 ML/MIN Glucose 195 H (74-106) mg/dL Calcium 8.2 L (8.4-10.2) mg/dL Total Bilirubin 0.60 (0.2-1.3) mg/dL AST 15 (14-36) U/L ALT 13 (0-35) U/L Alkaline Phosphatase 57 (38-126) U/L Troponin I 0.023 (0.000-0.034) ng/mL NT-Pro-B Natriuret Pep 4480 (<300) pg/mL Serum Total Protein 6.3 (6.3-8.2) g/dL Albumin 3.5 (3.5-5.0) g/dL Influenza Type A Ag NEGATIVE (NEGATIVE) Influenza Type B Ag NEGATIVE (NEGATIVE) RSV (PCR) POSITIVE (NEGATIVE) SARS-CoV-2 (PCR) NEGATIVE (NEGATIVE) Slides for Path Review 02/14/23 02/14/23 Range/Units 03:00 03:00 WBC 10.0 (4.0-10.5) x10^3/uL RBC 3.78 L (4.1-5.4) x10^6/uL Hgb 11.1 L (12.0-16.0) g/dL Hct 36.0 (35-47) % MCV 95.2 (78-100) fL MCH 29.4 (26-32) pg MCHC 30.8 L (32-36) g/dL RDW 14.3 H (11.5-14.0) % Plt Count 186 (150-450) x10^3/uL MPV 10.0 (7.5-11.0) fL Gran % 94.1 H (36.0-66.0) % Immature Gran % (Auto) 0.7 H (0.00-0.4) % Nucleat RBC Rel Count 0.0 (0.00-0.1) % Eos # (Auto) 0 (0-0.5) x10^3/uL Immature Gran # (Auto) 0.07 H (0.00-0.03) x10^3u/L Absolute Lymphs (auto) 0.30 L (1.0-4.6) x10^3/uL Absolute Monos (auto) 0.19 (0.0-1.3) x10^3/uL Absolute Nucleated RBC 0.00 (0.00-0.01) x10^3u/L Lymphocytes % 3.0 L (24.0-44.0) % Monocytes % 1.9 (0.0-12.0) % Eosinophils % 0.0 (0.00-5.0) % Basophils % 0.3 (0.0-0.4) % Absolute Granulocytes 9.41 H (1.4-6.9) x10^3/uL Basophils # 0.03 (0-0.4) x10^3/uL PT (9.4-12.5) SECONDS INR (0.8-3.0) Sodium 136 L (137-145) mmol/L Potassium 3.6 (3.5-5.1) mmol/L Chloride 102 (98-107) mmol/L Carbon Dioxide 24 (22-30) mmol/L Anion Gap 13.9 (5-15) MEQ/L BUN 20 H (7-17) mg/dL Creatinine 1.24 H (0.52-1.04) mg/dL Estimated GFR 43.7 ML/MIN Glucose 319 H (74-106) mg/dL Calcium 8.3 L (8.4-10.2) mg/dL Total Bilirubin 0.60 (0.2-1.3) mg/dL AST 18 (14-36) U/L ALT 15 (0-35) U/L Alkaline Phosphatase 60 (38-126) U/L Troponin I (0.000-0.034) ng/mL NT-Pro-B Natriuret Pep 4470 (<300) pg/mL Serum Total Protein 6.8 (6.3-8.2) g/dL Albumin 3.8 (3.5-5.0) g/dL Influenza Type A Ag (NEGATIVE) Influenza Type B Ag (NEGATIVE) RSV (PCR) (NEGATIVE) SARS-CoV-2 (PCR) (NEGATIVE) Slides for Path Review YES Radiology Exams: Radiology Procedures Category Date Time Status CHEST 1 VIEW (PORTABLE) Stat Exams 02/13/23 22:47 Taken Assessment/Plan (1) RSV (acute bronchiolitis due to respiratory syncytial virus) Current Visit: Yes Status: Acute Assessment & Plan: -Supportive therapies with supplemental oxygen with goal spo2 >92%, Nebs/bronchodilators (2) Right lower lobe pulmonary infiltrate Current Visit: Yes Status: Acute Assessment & Plan: -CXR showing shows right lower lobe infiltrate versus fluid versus both infiltrate and fluid. Patient's viral swabs are positive for RSV. -Will treat with ceftriaxone/azithromycin - Code(s): R91.8 - OTHER NONSPECIFIC ABNORMAL FINDING OF LUNG FIELD (3) Hyperglycemia Current Visit: Yes Status: Acute Assessment & Plan: -diabetes vs steroid use -A1c at 7.15 -SSI for now -ADA diet Code(s): R73.9 - HYPERGLYCEMIA, UNSPECIFIED (4) Hypokalemia Current Visit: Yes Status: Acute Assessment & Plan: -Patient received 20meqs for low potassium will start on daily potassium due to aggressive diuresis Code(s): E87.6 - HYPOKALEMIA (5) Elevated brain natriuretic peptide (BNP) level Current Visit: Yes Status: Acute Assessment & Plan: -h/o congestive HF, no recent echo -No US available for echo today, can obtain Thursday if she is still here Code(s): R79.89 - OTHER SPECIFIED ABNORMAL FINDINGS OF BLOOD CHEMISTRY (6) COPD (chronic obstructive pulmonary disease) Current Visit: Yes Status: Acute Assessment & Plan: -Follow with Dr. Rivera as OP -Conitue Azithromycin/ceftriaxone, solumedrol -Mucinex -Lovenox -CT chest w/o contrast due to GFR (7) CHF (congestive heart failure) Current Visit: Yes Status: Acute Assessment & Plan: -BNP elevated with infiltaration vs fluid on imaging -Continue IV lasix 40 bid Code(s): I50.9 - HEART FAILURE, UNSPECIFIED (8) HTN (hypertension) Current Visit: Yes Status: Acute Assessment & Plan: -Continue home meds, adjust as appropriate Code(s): I10 - ESSENTIAL (PRIMARY) HYPERTENSION (9) Chronic kidney disease Current Visit: Yes Status: Acute Assessment & Plan: -at baseline, will continue to monitor renal/lytes -Avoid nephrotoxic agents NSAIDS Code(s): N18.9 - CHRONIC KIDNEY DISEASE, UNSPECIFIED
[2023-02-14] MEDS ORDERED: Sterile H2O 10 ml IJ ONE (06:41)
[2023-02-14] MEDS ORDERED: solu-MEDROL ONE (06:41)
[2023-02-14] MEDS: solu-MEDROL 80 MG, Sterile H2O 10 ml 2 ML IV SCH ×6 (06:43→22:23)
--- NOTE | 2023-02-14 07:14 | XRAY ---
Indication: Cough and wheezing. Comparison: October 24, 2021 Portable chest demonstrates new cardiomegaly and central vascular prominence concerning for cardiac decompensation/CHF versus fluid overload. New right infrahilar infiltrate/atelectasis and left midlung discoid atelectasis/scarring. Bony thorax intact again with osteopenia and mild degenerative changes.
[2023-02-14] MEDS ORDERED: MEDICATION INTERVENTION MC SCH (07:30)
[2023-02-14] MEDS ORDERED: Lasix 40 MG/4 ML IV SCH (10:00)
[2023-02-14] MEDS ORDERED: Zestril 5 MG PO SCH (10:00)
[2023-02-14] MEDS ORDERED: ENOXAPARIN SODIUM SQ SCH (10:00)
[2023-02-14] MEDS ORDERED: LASIX 20 MG PO SCH (10:00)
[2023-02-14] MEDS: Zestril 20 MG PO SCH (10:57)
[2023-02-14] MEDS: Mucinex 600MG ER Tabs PO SCH ×2 (10:57→22:20)
[2023-02-14] MEDS: Zithromax 500 MG/ 250 ML NaCl Premix 500 MG/250 ML IVPB IV SCH (10:58)
[2023-02-14] MEDS: Klor Con PO SCH ×2 (10:58→22:20)
[2023-02-14] MEDS: ENOXAPARIN SODIUM SQ SCH (10:58)
[2023-02-14] MEDS: ECOTRIN 81 MG PO SCH (10:58)
[2023-02-14] MEDS: FEOSOL 325 MG PO SCH ×2 (10:58→22:20)
[2023-02-14] MEDS: ZOLOFT 50 MG TABLET PO SCH (10:58)
[2023-02-14] MEDS: Toprol-Xl 25MG Tablets PO SCH (10:58)
[2023-02-14] MEDS: Lasix 40 MG/4 ML IV SCH ×3 (10:58→16:13)
[2023-02-14] MEDS: HUMALOG SQ PRN ×2 (11:11→22:22)
--- NOTE | 2023-02-14 11:40 | XRAY ---
CLINICAL HISTORY:pneumonia COMPARISON:Dated: 09/22/2021 TECHNIQUE:Contiguous axial CT images of the chest were acquired without intravenous contrast. Coronal and sagittal reconstructions were obtained and submitted for diagnostic interpretation. FINDINGS: The scanned pulmonary parenchyma shows no definite consolidative lesions. Few atelectatic bands were seen in the left lung. 4.6mm diffusely calcified nodule seen in left upper lobe likely benign. No free or encysted pleural effusion. Heart size is normal, and there is no pericardial effusion. Mild coronary artery calcification. No pathologically enlarged mediastinal, hilar or axillary lymph node was identified. There is no definite mass lesion in the chest wall. A few prominent lymph nodes were seen in the right supraclavicular region. A 4.7 x 4.5cm cyst is seen in the upper pole of the right kidney. Atrophic left kidney. Status post cholecystectomy. The rest of the scanned upper abdomen is unremarkable. Moderate degenerative changes are seen in the visualized spine. IMPRESSION: No significant abnormality seen in CT scan chest. No interval changes seen. Electronically Signed by: Luis Alberto Hinojosa MD. (02/14/2023 11:35:55 EST)
[2023-02-14] MEDS: HUMALOG SQ SCH ×2 (12:35→16:13)
[2023-02-14] MEDS ORDERED: NON-FORMULARY ITEM (Donepezil Hcl [Aricept] 5 MG Tablet) PO SCH (22:00)
[2023-02-14] MEDS: Aricept 10 MG PO SCH (22:19)
[2023-02-14] MEDS: Lantus Insulin SQ SCH (22:20)
[2023-02-14] MEDS: ROCEPHIN 1 Gm-D5w 50 ml Bag** 1 G/50 ML IVPB IV SCH (22:23)
[2023-02-15] MEDS: PROVENTIL 2.5 MG/3 ML NEB IH SCH ×6 (03:22→23:27)
--- NOTE | 2023-02-15 05:09 | PCM.NOTE ---
Date and Time: 02/15/23 0508 Subjective Assessment: is a 82 year old female with COPD, CHF who presents with 4 days of progressively worsening sob, cough, wheezing. Patient was brought into the ED where she was given 125 mg of IV solumedrol, duonebs and 2-3 liters of NC and appeared to improve but still had wheezing, so ED provider requested admission. Work up also revealed RSV+ and a pBNP elevated. Patient denies fevers, chills, nausea, vomiting, diarrhea or worsening swelling. CXR showing new cardiomegaly and central vascular prominence concerning for cardiac decompensation/CHF versus fluid overload. New right infrahilar infiltrate/atelectasis and left midlung discoid atelectasis/scarring. 02/14: Met with patient bedside. She is RA at baseline requiring 2L of oxygen today. Endorses increased shortness of breath, dry cough, and wheezing. Lung auscultation with noted coarse breath sounds bilaterally and exp wheezing. Blood glucose levels are elevated, no history of diabetes but A1c is 7.15. Plan for continued diuresis, abx, steroids. Will add SSI for hyperglycemia. Patient will require follow up for blood glucose management on discharge. GFR is too low for CT w/ contrast. 02/15: Endorses improvement of shortness of breath, wheezing, and cough. Is currently trialing RA. Lung sounds on auscultation coarse with mild wheezing, more aeration since yesterday. Discussed labwork showing hypokalemia in the setting of aggressive diuresis. Plan to add an extra po potassium to regimen today. A1c 7.15, blood sugars elevated since admission. 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 Will need to start her on oral regimen prior to discharge with follow up. - Review of Systems Constitutional: No Symptoms Eyes: No Symptoms Ears, Nose, & Throat: No Symptoms Respiratory: Cough, Short Of Breath, Wheezing Cardiac: No Symptoms Abdominal/Gastrointestinal: No Symptoms Genitourinary Symptoms: No Symptoms Musculoskeletal: No Symptoms Skin: No Symptoms Neurological: No Symptoms Psychological: No Symptoms Endocrine: No Symptoms Objective Exam General Appearance: no apparent distress Neurologic Exam: alert, 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, cooperative Skin Exam: normal color Eye Exam: PERRL Ears, Nose, Throat Exam: normal ENT inspection Neck Exam: normal inspection Respiratory Exam: diminished breath sounds, crackles/rales, wheezing Cardiovascular Exam: regular rate/rhythm, normal heart sounds Gastrointestinal/Abdomen Exam: soft, normal bowel sounds Extremity Exam: normal inspection Back Exam: normal inspection Pelvic Exam: deferred OBJECTIVE DATA Vital Signs: Vital Signs - 24 hr Temp Pulse Resp BP Pulse Ox 02/15/23 03:24 105 H 20 96 02/14/23 23:22 97.8 F 82 20 190/92 97 02/14/23 19:47 87 20 96 02/14/23 19:44 97.8 F 78 24 160/71 94 L 02/14/23 16:00 98.7 F 91 H 20 155/75 93 L 02/14/23 15:10 83 18 95 02/14/23 12:00 98.3 F 84 22 155/85 96 02/14/23 10:50 96 02/14/23 07:30 74 19 95 02/14/23 07:11 96.4 F 66 20 181/73 94 L Pain Assessment - Last Documented Pain Intensity 0 Intake and Output: Intake & Output 02/12/23 02/13/23 02/14/23 02/15/23 11:59 11:59 11:59 11:59 Intake Total 100 440 Output Total 600 2800 Balance -500 -2360 Weight 119 kg Lab Results: Lab Results-Last 24 Hours 02/14/23 02/14/23 02/14/23 Range/Units 07:16 07:16 07:16 D-Dimer (0.0-0.50) mg/L POC Glucometer (50 to 500) mg/dL Hemoglobin A1c 7.15 H (4.5-6.0) % Magnesium 1.8 (1.6-2.3) mg/dL Troponin I 0.016 (0.000-0.034) ng/mL 02/14/23 02/14/23 02/14/23 Range/Units 07:16 10:59 11:01 D-Dimer 1.09 H* (0.0-0.50) mg/L POC Glucometer 501 H* 498 H (50 to 500) mg/dL Hemoglobin A1c (4.5-6.0) % Magnesium (1.6-2.3) mg/dL Troponin I (0.000-0.034) ng/mL 02/14/23 02/14/23 Range/Units 16:04 21:19 D-Dimer (0.0-0.50) mg/L POC Glucometer 328 H 425 H (50 to 500) mg/dL Hemoglobin A1c (4.5-6.0) % Magnesium (1.6-2.3) mg/dL Troponin I (0.000-0.034) ng/mL Radiology Exams: Radiology Procedures Category Date Time Status CHEST 1 VIEW (PORTABLE) Stat Exams 02/13/23 22:47 Completed CHEST WITHOUT CONTRAST [CT] Stat Exams 02/14/23 09:50 Completed Assessment/Plan (1) RSV (acute bronchiolitis due to respiratory syncytial virus) Current Visit: Yes Status: Acute Assessment & Plan: -Supportive therapies with supplemental oxygen with goal spo2 >92%, Nebs/bronchodilators (2) Right lower lobe pulmonary infiltrate Current Visit: Yes Status: Acute Assessment & Plan: -CXR showing shows right lower lobe infiltrate versus fluid versus both infiltrate and fluid. Patient's viral swabs are positive for RSV. -Will treat with ceftriaxone/azithromycin 02/15: -Continue current management with ceftriaxone/azithromycin -CT showing no abnormality - Code(s): R91.8 - OTHER NONSPECIFIC ABNORMAL FINDING OF LUNG FIELD (3) Hyperglycemia Current Visit: Yes Status: Acute Assessment & Plan: -diabetes vs steroid use -A1c at 7.15 -SSI for now -ADA diet 02/15: -a1c 7.15, will continue SSI while IP, will need oral regimen when d/c with follow up Code(s): R73.9 - HYPERGLYCEMIA, UNSPECIFIED (4) Hypokalemia Current Visit: Yes Status: Acute Assessment & Plan: -Patient received 20meqs for low potassium will start on daily potassium due to aggressive diuresis 02/15: -Potassium at 3.3, will give 40 meq with recheck, continue scheduled regimen Code(s): E87.6 - HYPOKALEMIA (5) Elevated brain natriuretic peptide (BNP) level Current Visit: Yes Status: Acute Assessment & Plan: -h/o congestive HF, no recent echo -No US available for echo today, can obtain Thursday if she is still here Code(s): R79.89 - OTHER SPECIFIED ABNORMAL FINDINGS OF BLOOD CHEMISTRY (6) COPD (chronic obstructive pulmonary disease) Current Visit: Yes Status: Acute Assessment & Plan: -Follow with Dr. Rivera as OP -Conitue Azithromycin/ceftriaxone, solumedrol -Mucinex -Lovenox -CT chest w/o contrast due to GFR 02/15: -CT chest with no acute abnormalities (7) CHF (congestive heart failure) Current Visit: Yes Status: Acute Assessment & Plan: -BNP elevated with infiltaration vs fluid on imaging -Continue IV lasix 40 bid Code(s): I50.9 - HEART FAILURE, UNSPECIFIED (8) HTN (hypertension) Current Visit: Yes Status: Acute Assessment & Plan: -Continue home meds, adjust as appropriate Code(s): I10 - ESSENTIAL (PRIMARY) HYPERTENSION (9) Chronic kidney disease Current Visit: Yes Status: Acute Assessment & Plan: -at baseline, will continue to monitor renal/lytes -Avoid nephrotoxic agents NSAIDS Code(s): N18.9 - CHRONIC KIDNEY DISEASE, UNSPECIFIED (2) Right lower lobe pulmonary infiltrate Current Visit: Yes Status: Acute Code(s): R91.8 - OTHER NONSPECIFIC ABNORMAL FINDING OF LUNG FIELD (3) Hyperglycemia Current Visit: Yes Status: Acute Code(s): R73.9 - HYPERGLYCEMIA, UNSPECIFIED (4) Hypokalemia Current Visit: Yes Status: Acute Code(s): E87.6 - HYPOKALEMIA (5) Elevated brain natriuretic peptide (BNP) level Current Visit: Yes Status: Acute Code(s): R79.89 - OTHER SPECIFIED ABNORMAL FINDINGS OF BLOOD CHEMISTRY (6) COPD (chronic obstructive pulmonary disease) Current Visit: Yes Status: Acute (7) CHF (congestive heart failure) Current Visit: Yes Status: Acute Code(s): I50.9 - HEART FAILURE, UNSPECIFIED (8) HTN (hypertension) Current Visit: Yes Status: Acute Code(s): I10 - ESSENTIAL (PRIMARY) HYPERTENSION (9) Chronic kidney disease Current Visit: Yes Status: Acute Code(s): N18.9 - CHRONIC KIDNEY DISEASE, UNSPECIFIED
[2023-02-15 05:57] LABS: Hematocrit 35.3 % (35-47); Hemoglobin 11.1 g/dL (12.0-16.0); Mean Cell Volume 92.4 fL (78-100); Mean Corpuscular Hemoglobin 29.1 pg (26-32); Mean Corpuscular Hgb Concent. 31.4 g/dL (32-36); Mean Platelet Volume 10.5 fL (7.5-11.0); Platelet Count 247 x10^3/uL (150-450); Red Blood Count 3.82 x10^6/uL (4.1-5.4); Red Cell Distribution Width 14.1 % (11.5-14.0); White Blood Count 18.1 x10^3/uL (4.0-10.5)
[2023-02-15 06:22] LABS: ALBUMIN 3.8 g/dL (3.5-5.0); ANION GAP 11.8 MEQ/L (5-15); BILIRUBIN,TOTAL 0.4 mg/dL (0.2-1.3); Calcium 8.7 mg/dL (8.4-10.2); Creatinine 1 1.41 mg/dL (0.52-1.04); EST GLOMERULAR FILTRATION RATE 37.5 ML/MIN; Potassium 3.3 mmol/L (3.5-5.1); Total Protein 6.9 g/dL (6.3-8.2)
[2023-02-15] MEDS ORDERED: Klor Con PO ONE (07:10)
[2023-02-15 07:45] LABS: PROCALCITONIN 0.154 ng/mL (0.030-0.080)
[2023-02-15] MEDS: solu-MEDROL 80 MG, Sterile H2O 10 ml 2 ML IV SCH ×6 (08:11→22:03)
[2023-02-15] MEDS: HUMALOG SQ SCH ×3 (08:12→17:10)
[2023-02-15] MEDS: HUMALOG SQ PRN ×4 (08:12→22:03)
[2023-02-15] MEDS: Klor Con PO SCH ×2 (10:24→22:04)
[2023-02-15] MEDS: ECOTRIN 81 MG PO SCH (10:24)
[2023-02-15] MEDS: Toprol-Xl 25MG Tablets PO SCH (10:24)
[2023-02-15] MEDS: Zestril 20 MG PO SCH (10:24)
[2023-02-15] MEDS: Lasix 40 MG/4 ML IV SCH ×3 (10:24→18:03)
[2023-02-15] MEDS: ZOLOFT 50 MG TABLET PO SCH (10:24)
[2023-02-15] MEDS: FEOSOL 325 MG PO SCH ×2 (10:24→22:04)
[2023-02-15] MEDS: ENOXAPARIN SODIUM SQ SCH (10:24)
[2023-02-15] MEDS: Mucinex 600MG ER Tabs PO SCH ×2 (10:24→22:04)
[2023-02-15] MEDS: Zithromax 500 MG/ 250 ML NaCl Premix 500 MG/250 ML IVPB IV SCH (10:25)
[2023-02-15] MEDS: ROCEPHIN 1 Gm-D5w 50 ml Bag** 1 G/50 ML IVPB IV SCH (22:03)
[2023-02-15] MEDS: Lantus Insulin SQ SCH (22:03)
[2023-02-15] MEDS: Aricept 10 MG PO SCH (22:04)
[2023-02-16] MEDS: PROVENTIL 2.5 MG/3 ML NEB IH SCH ×4 (03:17→16:46)
[2023-02-16 05:52] LABS: Hemoglobin 11.1 g/dL (12.0-16.0); Mean Corpuscular Hgb Concent. 30.8 g/dL (32-36); Mean Platelet Volume 10.4 fL (7.5-11.0); Platelet Count 274 x10^3/uL (150-450); Red Blood Count 3.83 x10^6/uL (4.1-5.4); Red Cell Distribution Width 14.3 % (11.5-14.0); White Blood Count 19.5 x10^3/uL (4.0-10.5)
[2023-02-16 06:10] LABS: ALBUMIN 3.8 g/dL (3.5-5.0); ANION GAP 14.2 MEQ/L (5-15); BILIRUBIN,TOTAL 0.4 mg/dL (0.2-1.3); Calcium 8.9 mg/dL (8.4-10.2); Creatinine 1 1.7 mg/dL (0.52-1.04); EST GLOMERULAR FILTRATION RATE 29.9 ML/MIN; Potassium 3.6 mmol/L (3.5-5.1); Total Protein 6.6 g/dL (6.3-8.2)
[2023-02-16] MEDS ORDERED: solu-MEDROL ONE (06:31)
[2023-02-16] MEDS: solu-MEDROL 80 MG, Sterile H2O 10 ml 2 ML IV SCH ×2 (06:37)
[2023-02-16] MEDS ORDERED: HUMALOG SQ ONE (08:00)
[2023-02-16] MEDS ORDERED: HUMALOG SQ SCH (08:00)
[2023-02-16] MEDS: HUMALOG SQ PRN ×3 (08:02→21:35)
[2023-02-16] MEDS: ENOXAPARIN SODIUM SQ SCH (09:04)
[2023-02-16] MEDS: ECOTRIN 81 MG PO SCH (09:05)
[2023-02-16] MEDS: Toprol-Xl 25MG Tablets PO SCH (09:05)
[2023-02-16] MEDS: FEOSOL 325 MG PO SCH ×2 (09:05→21:36)
[2023-02-16] MEDS: Lasix 40 MG/4 ML IV SCH (09:06)
[2023-02-16] MEDS: Zestril 20 MG PO SCH (09:06)
[2023-02-16] MEDS: Lantus Insulin SQ SCH ×2 (09:06→21:37)
[2023-02-16] MEDS: ZOLOFT 50 MG TABLET PO SCH (09:06)
[2023-02-16] MEDS: Mucinex 600MG ER Tabs PO SCH ×2 (09:06→21:36)
[2023-02-16] MEDS: Klor Con PO SCH ×2 (09:06→21:36)
[2023-02-16] MEDS: Zithromax 500 MG/ 250 ML NaCl Premix 500 MG/250 ML IVPB IV SCH (09:07)
[2023-02-16] MEDS ORDERED: NORVASC 5 MG PO SCH (10:00)
--- NOTE | 2023-02-16 10:46 | PCM.NOTE ---
Date and Time: 02/16/23 1033 Subjective Assessment: is a 82 year old female with COPD, CHF who presented to ER with 4 days of progressively worsening SOB, cough, and wheezing. Patient was brought into the ED where she was given 125 mg of IV solumedrol, duonebs and 2-3 liters of NC and appeared to improve but still had wheezing, so ED provider requested admission. Work up also revealed RSV+ and a pBNP elevated. Patient denies fevers, chills, nausea, vomiting, diarrhea or worsening swelling. CXR showing new cardiomegaly and central vascular prominence concerning for cardiac decompensation/CHF versus fluid overload. New right infrahilar infiltrate/atelectasis and left midlung discoid atelectasis/scarring. She is on at baseline 2LNC at HS. She is not requiring oxygen during he day. She continues to some whezzing throughout but lung sounds have improved since admission. Glucose increased due to steriods. Will reduce steriod dose. Insulin doses changed. 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 Will need to start her on oral regimen prior to discharge with follow up. A1C 7.15, blood sugars elevated since admission. Continue diuresis, abx, steroids.She denies CP, Abd. pain, N/V/D. - Review of Systems Constitutional: No Fever, No Chills Eyes: No Symptoms Ears, Nose, & Throat: No Symptoms Respiratory: Wheezing, No Cough, No Short Of Breath Cardiac: No Chest Pain, No Edema, No Syncope Abdominal/Gastrointestinal: No Abdominal Pain, No Nausea, No Vomiting, No Diarrhea Genitourinary Symptoms: No Dysuria Musculoskeletal: No Back Pain, No Neck Pain Skin: No Rash Neurological: No Dizziness, No Focal Weakness, No Sensory Changes Psychological: No Symptoms Endocrine: No Symptoms Hematologic/Lymphatic: No Symptoms Immunological/Allergic: No Symptoms Objective Exam General Appearance: no apparent distress, alert Neurologic Exam: alert, 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, cooperative, normal mood/affect, nml cerebellar function, sensation nml, No motor deficits Skin Exam: normal color, warm, dry Eye Exam: PERRL, EOMI, eyes nml inspection Ears, Nose, Throat Exam: normal ENT inspection, pharynx normal, moist mucous membranes Neck Exam: normal inspection, non-tender, supple, full range of motion Respiratory Exam: wheezing, No respiratory distress Cardiovascular Exam: regular rate/rhythm, normal heart sounds Gastrointestinal/Abdomen Exam: soft, No tenderness, No mass Extremity Exam: normal inspection, normal range of motion Back Exam: normal inspection, normal range of motion, No CVA tenderness, No vertebral tenderness Pelvic Exam: deferred Rectal Exam: deferred OBJECTIVE DATA Vital Signs: Vital Signs - 24 hr Temp Pulse Resp BP Pulse Ox 02/16/23 07:55 96.2 F 89 17 187/81 90 L 02/16/23 07:19 85 20 95 02/16/23 03:54 97.4 F 72 20 130/70 97 02/16/23 03:17 75 18 93 L 02/15/23 23:27 85 18 91 L 02/15/23 23:12 97.7 F 71 22 160/68 93 L 02/15/23 19:45 97.9 F 74 22 138/78 94 L 02/15/23 18:47 84 18 94 L 02/15/23 16:00 97.3 F 85 19 135/89 92 L 02/15/23 15:13 85 20 94 L 02/15/23 11:59 97.2 F 73 18 163/66 94 L 02/15/23 11:01 85 20 94 L Pain Assessment - Last Documented Pain Intensity 0 Intake and Output: Intake & Output 02/13/23 02/14/23 02/15/23 02/16/23 11:59 11:59 11:59 11:59 Intake Total 100 1020 800 Output Total 600 3450 1850 Balance -500 -2430 -1050 Weight 119 kg 114.2 kg Lab Results: Lab Results-Last 24 Hours 02/15/23 02/15/23 02/15/23 Range/Units 11:05 16:45 21:52 WBC (4.0-10.5) x10^3/uL RBC (4.1-5.4) x10^6/uL Hgb (12.0-16.0) g/dL Hct (35-47) % MCV (78-100) fL MCH (26-32) pg MCHC (32-36) g/dL RDW (11.5-14.0) % Plt Count (150-450) x10^3/uL MPV (7.5-11.0) fL Sodium (137-145) mmol/L Potassium (3.5-5.1) mmol/L Chloride (98-107) mmol/L Carbon Dioxide (22-30) mmol/L Anion Gap (5-15) MEQ/L BUN (7-17) mg/dL Creatinine (0.52-1.04) mg/dL Estimated GFR ML/MIN Glucose (74-106) mg/dL POC Glucometer 407 H 211 H 251 H (74 to 106) mg/dL Calcium (8.4-10.2) mg/dL Total Bilirubin (0.2-1.3) mg/dL AST (14-36) U/L ALT (0-35) U/L Alkaline Phosphatase (38-126) U/L Serum Total Protein (6.3-8.2) g/dL Albumin (3.5-5.0) g/dL 02/16/23 02/16/23 02/16/23 Range/Units 05:49 05:49 07:31 WBC 19.5 H (4.0-10.5) x10^3/uL RBC 3.83 L (4.1-5.4) x10^6/uL Hgb 11.1 L (12.0-16.0) g/dL Hct 36.0 (35-47) % MCV 94.0 (78-100) fL MCH 29.0 (26-32) pg MCHC 30.8 L (32-36) g/dL RDW 14.3 H (11.5-14.0) % Plt Count 274 (150-450) x10^3/uL MPV 10.4 (7.5-11.0) fL Sodium 137 (137-145) mmol/L Potassium 3.6 (3.5-5.1) mmol/L Chloride 95 L (98-107) mmol/L Carbon Dioxide 31 H (22-30) mmol/L Anion Gap 14.2 (5-15) MEQ/L BUN 44 H (7-17) mg/dL Creatinine 1.70 H (0.52-1.04) mg/dL Estimated GFR 29.9 ML/MIN Glucose 322 H (74-106) mg/dL POC Glucometer 316 H (74 to 106) mg/dL Calcium 8.9 (8.4-10.2) mg/dL Total Bilirubin 0.40 (0.2-1.3) mg/dL AST 18 (14-36) U/L ALT 17 (0-35) U/L Alkaline Phosphatase 57 (38-126) U/L Serum Total Protein 6.6 (6.3-8.2) g/dL Albumin 3.8 (3.5-5.0) g/dL Radiology Exams: Radiology Procedures Category Date Time Status CHEST WITHOUT CONTRAST [CT] Stat Exams 02/14/23 09:50 Completed Assessment/Plan (1) RSV (acute bronchiolitis due to respiratory syncytial virus) Current Visit: Yes Status: Acute Assessment & Plan: -Supportive therapies - on Baseline home o2 of 2LNC at HS - Steroids, albuterol, duonebs (2) Right lower lobe pulmonary infiltrate Current Visit: Yes Status: Acute Assessment & Plan: -CXR showing shows right lower lobe infiltrate versus fluid versus both infiltrate and fluid. Patient's viral swabs are positive for RSV. -Will treat with ceftriaxone/azithromycin -Continue current management with ceftriaxone/azithromycin -CT showing no abnormality -Steroids, albuterol, duonebs Code(s): R91.8 - OTHER NONSPECIFIC ABNORMAL FINDING OF LUNG FIELD (3) [id number] kidney injury Current Visit: Yes Status: Acute Assessment & Plan: - Baseline creat 1.17 - Follows Dr. Bird- nephrology - Discussed CT of atrophic left kidney- pt reports no prior knowledge of this.- F/u Op with Dr. Bird to discuss. - worsening renal function today, Creat 1.70 - reduced Lasix to BID dosing- Lasix 40mg daily at home Code(s): N17.9 - ACUTE KIDNEY FAILURE, UNSPECIFIED; N18.9 - CHRONIC KIDNEY DISEASE, UNSPECIFIED (4) CHF (congestive heart failure) Current Visit: Yes Status: Acute Assessment & Plan: - On admssion BNP elevated with infiltration vs fluid on imaging -decreased IV lasix 40 bid due to BRANDEN Code(s): I50.9 - HEART FAILURE, UNSPECIFIED (5) COPD (chronic obstructive pulmonary disease) Current Visit: Yes Status: Acute Assessment & Plan: -Follow with Dr. Rivera- pulmonology OP -Conitue Azithromycin/ceftriaxone, solumedrol, duonebs, advair -Mucinex -Lovenox -CT chest w/o contrast due to GFR- no acute abnormalities (6) Elevated brain natriuretic peptide (BNP) level Current Visit: Yes Status: Acute Assessment & Plan: -h/o congestive HF, no recent echo -No US available for echo today due to holiday Code(s): R79.89 - OTHER SPECIFIED ABNORMAL FINDINGS OF BLOOD CHEMISTRY (7) HTN (hypertension) Current Visit: Yes Status: Acute Assessment & Plan: - hold lisinopril for now due to BRANDEN - Stat amlodipine 5mg daily - Hydralazine PRN Code(s): I10 - ESSENTIAL (PRIMARY) HYPERTENSION (8) Hyperglycemia Current Visit: Yes Status: Acute Assessment & Plan: - 2nd to steroid use - A1c at 7.15- no known hx of DM- + DM with A1C level - S/S, Humalog, Lispro- med changes today - ADA diet - will need oral regimen when d/c with follow up with PCP Code(s): R73.9 - HYPERGLYCEMIA, UNSPECIFIED (9) Hypokalemia Current Visit: Yes Status: Acute Assessment & Plan: - 3.6 resolved Code(s): E87.6 - HYPOKALEMIA (10) Elevated d-dimer Current Visit: Yes Status: Acute Assessment & Plan: - Unable to have CT with PE protocol due to kidney function - Unable to do VQ scan as there is no tech here until . - SOB has improved VTE:Lovenox Next of Kin: shanna Ludwig [phone] D/c plan: tomorrow Code status: full Code(s): R79.89 - OTHER SPECIFIED ABNORMAL FINDINGS OF BLOOD CHEMISTRY
[2023-02-16] MEDS ORDERED: Lasix 40 MG/4 ML IV SCH ×2 (11:00→17:00)
[2023-02-16] MEDS ORDERED: APRESOLINE 20 MG/ML INJ IV PRN (11:06)
[2023-02-16] MEDS: DUONEB 0.5-3 MG/3 ml Neb IH SCH ×4 (11:11→22:59)
[2023-02-16] MEDS: HUMALOG SQ SCH ×2 (11:38→16:58)
[2023-02-16] MEDS ORDERED: PHARMACY DOSING REQUEST MC ONE (13:01)
[2023-02-16] MEDS ORDERED: Tessalon Perles 100 MG PO PRN (13:01)
[2023-02-16] MEDS ORDERED: Advair Hfa 230/21 Mcg COMMON CANISTER IH SCH (19:00)
[2023-02-16] MEDS: ADVAIR 500-50 DISKUS IH SCH (19:04)
[2023-02-16] MEDS: ROCEPHIN 1 Gm-D5w 50 ml Bag** 1 G/50 ML IVPB IV SCH (21:36)
[2023-02-16] MEDS: Aricept 10 MG PO SCH (21:36)
[2023-02-16] MEDS: solu-MEDROL 60 MG, Sterile H2O 10 ml 2 ML IV SCH ×2 (21:37)
[2023-02-17] MEDS: DUONEB 0.5-3 MG/3 ml Neb IH SCH ×5 (02:59→19:30)
[2023-02-17 04:39] LABS: Hematocrit 35.8 % (35-47); Hemoglobin 11.1 g/dL (12.0-16.0); Mean Cell Volume 93.5 fL (78-100); Mean Platelet Volume 10.6 fL (7.5-11.0); Platelet Count 280 x10^3/uL (150-450); Red Blood Count 3.83 x10^6/uL (4.1-5.4); Red Cell Distribution Width 14.4 % (11.5-14.0); White Blood Count 17.1 x10^3/uL (4.0-10.5)
[2023-02-17 05:05] LABS: ALBUMIN 3.7 g/dL (3.5-5.0); ANION GAP 12.2 MEQ/L (5-15); BILIRUBIN,TOTAL 0.3 mg/dL (0.2-1.3); Calcium 8.9 mg/dL (8.4-10.2); Creatinine 1 1.9 mg/dL (0.52-1.04); EST GLOMERULAR FILTRATION RATE 26.2 ML/MIN; Potassium 3.6 mmol/L (3.5-5.1); Total Protein 6.4 g/dL (6.3-8.2)
[2023-02-17] MEDS: ADVAIR 500-50 DISKUS IH SCH ×2 (06:41→19:30)
[2023-02-17] MEDS ORDERED: HALLS COUGH DROPS 5.4 MG MM PRN (06:53)
[2023-02-17] MEDS: HUMALOG SQ SCH ×3 (07:45→17:18)
[2023-02-17] MEDS: HUMALOG SQ PRN ×3 (07:45→23:26)
--- NOTE | 2023-02-17 08:44 | PCM.NOTE ---
Date and Time: 02/17/23 0838 Subjective Assessment: 02/16/23 is a 82 year old female with COPD, CHF who presented to ER with 4 da ys of progressively worsening SOB, cough, and wheezing. Patient was brought into the ED where she was given 125 mg of IV solumedrol, duonebs and 2-3 liters of NC and appeared to improve but still had wheezing, so ED provider requested admission. Work up also revealed RSV+ and a pBNP elevated. Patient denies fevers, chills, nausea, vomiting, diarrhea or worsening swelling. CXR showing new cardiomegaly and central vascular prominence concerning for cardiac decompensation/CHF versus fluid overload. New right infrahilar infiltrate/atelectasis and left midlung discoid atelectasis/scarring. She is on at baseline 2LNC at HS. She is not requiring oxygen during he day. She continues to some wheezing throughout but lung sounds have improved since admission. Glucose increased due to steroids. Will reduce steroid dose. Insulin doses changed. Patient states her participant administrator has told her she is diabetic in the past but she has never been on medications. Will need to start her on oral regimen prior to discharge with follow up. A1C 7.15, blood sugars elevated since admission. Continue diuresis, abx, steroids.She denies CP, Abd. pain, N/V/D. 02/17/23 Pt resting in bed. Lung sounds have improved since yesterday. She continues to have some wheezing of left lower lobe. BRANDEN has worsened will stop Lasix. She is requesting to get up and walk today. PT ordered and to also assess for any home needs prior to d/c. Continue abx, steroids.She denies CP, Abd. pain, N/V/D. - Review of Systems Constitutional: No Fever, No Chills Eyes: No Symptoms Ears, Nose, & Throat: No Symptoms Respiratory: Cough, Wheezing Cardiac: No Chest Pain, No Edema, No Syncope Abdominal/Gastrointestinal: No Abdominal Pain, No Nausea, No Vomiting, No Diarrhea Genitourinary Symptoms: No Dysuria Musculoskeletal: No Back Pain, No Neck Pain Skin: No Rash Neurological: No Dizziness, No Focal Weakness, No Sensory Changes Psychological: No Symptoms Endocrine: No Symptoms Hematologic/Lymphatic: No Symptoms Immunological/Allergic: No Symptoms Objective Exam General Appearance: no apparent distress, alert, obese Neurologic Exam: alert, 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, cooperative, normal mood/affect, nml cerebellar function, sensation nml, No motor deficits Skin Exam: normal color, warm, dry Eye Exam: PERRL, EOMI, eyes nml inspection Ears, Nose, Throat Exam: normal ENT inspection, pharynx normal, moist mucous membranes Neck Exam: normal inspection, non-tender, supple, full range of motion Respiratory Exam: wheezing (left lower lobe), No respiratory distress Cardiovascular Exam: regular rate/rhythm, normal heart sounds Gastrointestinal/Abdomen Exam: soft, No tenderness, No mass Extremity Exam: normal inspection, normal range of motion Back Exam: normal inspection, normal range of motion, No CVA tenderness, No vertebral tenderness Pelvic Exam: deferred Rectal Exam: deferred OBJECTIVE DATA Vital Signs: Vital Signs - 24 hr Temp Pulse Resp BP Pulse Ox 02/17/23 07:33 131/65 02/17/23 06:59 97.8 F 77 20 191/75 96 02/17/23 06:42 82 20 94 L 02/17/23 04:00 98.8 F 76 18 187/72 96 02/17/23 02:59 76 18 96 02/16/23 23:33 96.5 F 89 20 179/79 91 L 02/16/23 22:59 75 20 95 02/16/23 20:00 95.9 F 80 16 162/71 91 L 02/16/23 19:03 75 18 95 02/16/23 16:00 97.6 F 86 18 152/66 93 L 02/16/23 15:14 80 18 94 L 02/16/23 12:00 96.2 F 69 19 140/64 93 L 02/16/23 10:49 80 28 H 94 L Pain Assessment - Last Documented Pain Intensity 0 Intake and Output: Intake & Output 02/14/23 02/15/23 02/16/23 02/17/23 11:59 11:59 11:59 11:59 Intake Total 100 1020 800 250 Output Total 600 3450 1850 1100 Balance -935 -4752 -4250 -825 Weight 119 kg 114.2 kg 114.2 kg Lab Results: Lab Results-Last 24 Hours 02/16/23 02/16/23 02/16/23 Range/Units 11:29 16:52 21:14 WBC (4.0-10.5) x10^3/uL RBC (4.1-5.4) x10^6/uL Hgb (12.0-16.0) g/dL Hct (35-47) % MCV (78-100) fL MCH (26-32) pg MCHC (32-36) g/dL RDW (11.5-14.0) % Plt Count (150-450) x10^3/uL MPV (7.5-11.0) fL Sodium (137-145) mmol/L Potassium (3.5-5.1) mmol/L Chloride (98-107) mmol/L Carbon Dioxide (22-30) mmol/L Anion Gap (5-15) MEQ/L BUN (7-17) mg/dL Creatinine (0.52-1.04) mg/dL Estimated GFR ML/MIN Glucose (74-106) mg/dL POC Glucometer 337 H 139 H 233 H (74 to 106) mg/dL Calcium (8.4-10.2) mg/dL Total Bilirubin (0.2-1.3) mg/dL AST (14-36) U/L ALT (0-35) U/L Alkaline Phosphatase (38-126) U/L Serum Total Protein (6.3-8.2) g/dL Albumin (3.5-5.0) g/dL 02/17/23 02/17/23 02/17/23 Range/Units 04:29 04:29 06:31 WBC 17.1 H (4.0-10.5) x10^3/uL RBC 3.83 L (4.1-5.4) x10^6/uL Hgb 11.1 L (12.0-16.0) g/dL Hct 35.8 (35-47) % MCV 93.5 (78-100) fL MCH 29.0 (26-32) pg MCHC 31.0 L (32-36) g/dL RDW 14.4 H (11.5-14.0) % Plt Count 280 (150-450) x10^3/uL MPV 10.6 (7.5-11.0) fL Sodium 135 L (137-145) mmol/L Potassium 3.6 (3.5-5.1) mmol/L Chloride 96 L (98-107) mmol/L Carbon Dioxide 30 (22-30) mmol/L Anion Gap 12.2 (5-15) MEQ/L BUN 70 H (7-17) mg/dL Creatinine 1.90 H (0.52-1.04) mg/dL Estimated GFR 26.2 ML/MIN Glucose 293 H (74-106) mg/dL POC Glucometer 302 H (74 to 106) mg/dL Calcium 8.9 (8.4-10.2) mg/dL Total Bilirubin 0.30 (0.2-1.3) mg/dL AST 18 (14-36) U/L ALT 17 (0-35) U/L Alkaline Phosphatase 57 (38-126) U/L Serum Total Protein 6.4 (6.3-8.2) g/dL Albumin 3.7 (3.5-5.0) g/dL Assessment/Plan (1) RSV (acute bronchiolitis due to respiratory syncytial virus) Current Visit: Yes Status: Acute (2) Right lower lobe pulmonary infiltrate Current Visit: Yes Status: Acute Code(s): R91.8 - OTHER NONSPECIFIC ABNORMAL FINDING OF LUNG FIELD (3) [id number]-bp-[id number] kidney injury Current Visit: Yes Status: Acute Code(s): N17.9 - ACUTE KIDNEY FAILURE, UNSPECIFIED; N18.9 - CHRONIC KIDNEY DISEASE, UNSPECIFIED (4) CHF (congestive heart failure) Current Visit: Yes Status: Acute Code(s): I50.9 - HEART FAILURE, UNSPECIFIED (5) COPD (chronic obstructive pulmonary disease) Current Visit: Yes Status: Acute (6) Elevated brain natriuretic peptide (BNP) level Current Visit: Yes Status: Acute Code(s): R79.89 - OTHER SPECIFIED ABNORMAL FINDINGS OF BLOOD CHEMISTRY (7) HTN (hypertension) Current Visit: Yes Status: Acute Code(s): I10 - ESSENTIAL (PRIMARY) HYPERTENSION (8) Hyperglycemia Current Visit: Yes Status: Acute Code(s): R73.9 - HYPERGLYCEMIA, UNSPECIFIED (9) Hypokalemia Current Visit: Yes Status: Acute Code(s): E87.6 - HYPOKALEMIA (10) Elevated d-dimer Current Visit: Yes Status: Acute Assessment & Plan: (1) RSV (acute bronchiolitis due to respiratory syncytial virus) Current Visit: Yes Status: Acute Assessment & Plan: -Supportive therapies - on Baseline home o2 of 2LNC at HS - Steroids, albuterol, duonebs (2) Right lower lobe pulmonary infiltrate Current Visit: Yes Status: Acute Assessment & Plan: -CXR showing shows right lower lobe infiltrate versus fluid versus both infiltrate and fluid. Patient's viral swabs are positive for RSV. -Will treat with ceftriaxone/azithromycin -Continue current management with ceftriaxone/azithromycin -CT showing no abnormality -Steroids, albuterol, duonebs Code(s): R91.8 - OTHER NONSPECIFIC ABNORMAL FINDING OF LUNG FIELD (3) Dpfwu-hb-iwuasbd kidney injury Current Visit: Yes Status: Acute Assessment & Plan: - Baseline creat 1.17 - Follows Dr. Bird- nephrology - Discussed CT of atrophic left kidney- pt reports no prior knowledge of this.- F/u Op with Dr. Bird to discuss. - worsening renal function today, Creat 1.70 - reduced Lasix to BID dosing- Lasix 40mg daily at home 02/17/22 - worsening BRANDEN creat 1.90 - Stop lasix Code(s): N17.9 - ACUTE KIDNEY FAILURE, UNSPECIFIED; N18.9 - CHRONIC KIDNEY DISEASE, UNSPECIFIED (4) CHF (congestive heart failure) Current Visit: Yes Status: Acute Assessment & Plan: - On admission BNP elevated with infiltration vs fluid on imaging - decreased IV lasix 40 bid due to BRANDEN - no edema / - BNP in AM Code(s): I50.9 - HEART FAILURE, UNSPECIFIED (5) COPD (chronic obstructive pulmonary disease) Current Visit: Yes Status: Acute Assessment & Plan: -Follow with Dr. Rivera- pulmonology OP -Conitue Azithromycin/ceftriaxone, solumedrol, duonebs, advair -Mucinex -Lovenox -CT chest w/o contrast due to GFR- no acute abnormalities (6) Elevated brain natriuretic peptide (BNP) level Current Visit: Yes Status: Acute Assessment & Plan: -h/o congestive HF, no recent echo -No US available for echo today due to holiday Code(s): R79.89 - OTHER SPECIFIED ABNORMAL FINDINGS OF BLOOD CHEMISTRY (7) HTN (hypertension) Current Visit: Yes Status: Acute Assessment & Plan: - hold lisinopril for now due to BRANDEN - Stat amlodipine 5mg daily - Hydralazine PRN Code(s): I10 - ESSENTIAL (PRIMARY) HYPERTENSION (8) Hyperglycemia Current Visit: Yes Status: Acute Assessment & Plan: - 2nd to steroid use - A1c at 7.15- no known hx of DM- + DM with A1C level - S/S, Humalog, Lispro- med changes today - ADA diet - will need oral regimen when d/c with follow up with PCP Code(s): R73.9 - HYPERGLYCEMIA, UNSPECIFIED (9) Hypokalemia Current Visit: Yes Status: Acute Assessment & Plan: - 3.6 resolved Code(s): E87.6 - HYPOKALEMIA (10) Elevated d-dimer Current Visit: Yes Status: Acute Assessment & Plan: - Unable to have CT with PE protocol due to kidney function - Unable to do VQ scan as there is no tech here until . - SOB has improved VTE:Lovenox Next of Kin: shanna Ludwig [phone] D/c plan: tomorrow Code status: full Code(s): R79.89 - OTHER SPECIFIED ABNORMAL FINDINGS OF BLOOD CHEMISTRY
--- NOTE | 2023-02-17 08:55 | PCM.NOTE ---
Date and Time: 02/17/23 0849 OBJECTIVE DATA Vital Signs: Vital Signs - 24 hr Temp Pulse Resp BP Pulse Ox 02/17/23 07:33 131/65 02/17/23 06:59 97.8 F 77 20 191/75 96 02/17/23 06:42 82 20 94 L 02/17/23 04:00 98.8 F 76 18 187/72 96 02/17/23 02:59 76 18 96 02/16/23 23:33 96.5 F 89 20 179/79 91 L 02/16/23 22:59 75 20 95 02/16/23 20:00 95.9 F 80 16 162/71 91 L 02/16/23 19:03 75 18 95 02/16/23 16:00 97.6 F 86 18 152/66 93 L 02/16/23 15:14 80 18 94 L 02/16/23 12:00 96.2 F 69 19 140/64 93 L 02/16/23 10:49 80 28 H 94 L Pain Assessment - Last Documented Pain Intensity 0 Intake and Output: Intake & Output 02/14/23 02/15/23 02/16/23 02/17/23 11:59 11:59 11:59 11:59 Intake Total 100 1020 800 250 Output Total 600 3450 1850 1100 Balance -500 -2430 -1050 -850 Weight 119 kg 114.2 kg 114.2 kg Lab Results: Lab Results-Last 24 Hours 02/16/23 02/16/23 02/16/23 Range/Units 11:29 16:52 21:14 WBC (4.0-10.5) x10^3/uL RBC (4.1-5.4) x10^6/uL Hgb (12.0-16.0) g/dL Hct (35-47) % MCV (78-100) fL MCH (26-32) pg MCHC (32-36) g/dL RDW (11.5-14.0) % Plt Count (150-450) x10^3/uL MPV (7.5-11.0) fL Sodium (137-145) mmol/L Potassium (3.5-5.1) mmol/L Chloride (98-107) mmol/L Carbon Dioxide (22-30) mmol/L Anion Gap (5-15) MEQ/L BUN (7-17) mg/dL Creatinine (0.52-1.04) mg/dL Estimated GFR ML/MIN Glucose (74-106) mg/dL POC Glucometer 337 H 139 H 233 H (74 to 106) mg/dL Calcium (8.4-10.2) mg/dL Total Bilirubin (0.2-1.3) mg/dL AST (14-36) U/L ALT (0-35) U/L Alkaline Phosphatase (38-126) U/L Serum Total Protein (6.3-8.2) g/dL Albumin (3.5-5.0) g/dL 02/17/23 02/17/23 02/17/23 Range/Units 04:29 04:29 06:31 WBC 17.1 H (4.0-10.5) x10^3/uL RBC 3.83 L (4.1-5.4) x10^6/uL Hgb 11.1 L (12.0-16.0) g/dL Hct 35.8 (35-47) % MCV 93.5 (78-100) fL MCH 29.0 (26-32) pg MCHC 31.0 L (32-36) g/dL RDW 14.4 H (11.5-14.0) % Plt Count 280 (150-450) x10^3/uL MPV 10.6 (7.5-11.0) fL Sodium 135 L (137-145) mmol/L Potassium 3.6 (3.5-5.1) mmol/L Chloride 96 L (98-107) mmol/L Carbon Dioxide 30 (22-30) mmol/L Anion Gap 12.2 (5-15) MEQ/L BUN 70 H (7-17) mg/dL Creatinine 1.90 H (0.52-1.04) mg/dL Estimated GFR 26.2 ML/MIN Glucose 293 H (74-106) mg/dL POC Glucometer 302 H (74 to 106) mg/dL Calcium 8.9 (8.4-10.2) mg/dL Total Bilirubin 0.30 (0.2-1.3) mg/dL AST 18 (14-36) U/L ALT 17 (0-35) U/L Alkaline Phosphatase 57 (38-126) U/L Serum Total Protein 6.4 (6.3-8.2) g/dL Albumin 3.7 (3.5-5.0) g/dL
[2023-02-17] MEDS ORDERED: NORVASC 5 MG PO SCH (10:00)
[2023-02-17] MEDS: Toprol-Xl 25MG Tablets PO SCH (10:37)
[2023-02-17] MEDS: ENOXAPARIN SODIUM SQ SCH (10:37)
[2023-02-17] MEDS: Lantus Insulin SQ SCH ×2 (10:37→22:59)
[2023-02-17] MEDS: ZOLOFT 50 MG TABLET PO SCH (10:37)
[2023-02-17] MEDS: FEOSOL 325 MG PO SCH ×2 (10:38→22:58)
[2023-02-17] MEDS: NORVASC 5 MG PO SCH ×2 (10:38→22:59)
[2023-02-17] MEDS: Klor Con PO SCH ×2 (10:38→22:58)
[2023-02-17] MEDS: Mucinex 600MG ER Tabs PO SCH ×2 (10:38→22:58)
[2023-02-17] MEDS: solu-MEDROL 60 MG, Sterile H2O 10 ml 2 ML IV SCH ×4 (10:38→22:58)
[2023-02-17] MEDS: ECOTRIN 81 MG PO SCH (10:38)
[2023-02-17] MEDS: Zithromax 500 MG/ 250 ML NaCl Premix 500 MG/250 ML IVPB IV SCH (10:42)
[2023-02-17] MEDS ORDERED: Klor Con PO ONE (21:31)
[2023-02-17] MEDS: Aricept 10 MG PO SCH (22:58)
[2023-02-17] MEDS: ROCEPHIN 1 Gm-D5w 50 ml Bag** 1 G/50 ML IVPB IV SCH (23:04)
[2023-02-18 04:54] LABS: Hematocrit 35.4 % (35-47); Mean Cell Volume 94.1 fL (78-100); Mean Corpuscular Hemoglobin 29.3 pg (26-32); Mean Corpuscular Hgb Concent. 31.1 g/dL (32-36); Mean Platelet Volume 10.3 fL (7.5-11.0); Platelet Count 262 x10^3/uL (150-450); Red Blood Count 3.76 x10^6/uL (4.1-5.4); Red Cell Distribution Width 14.4 % (11.5-14.0); White Blood Count 14.1 x10^3/uL (4.0-10.5)
[2023-02-18 06:07] LABS: ALBUMIN 3.4 g/dL (3.5-5.0); BILIRUBIN,TOTAL 0.3 mg/dL (0.2-1.3); Calcium 8.8 mg/dL (8.4-10.2); Creatinine 1 1.55 mg/dL (0.52-1.04); EST GLOMERULAR FILTRATION RATE 33.5 ML/MIN; Total Protein 6.2 g/dL (6.3-8.2)
[2023-02-18] MEDS ORDERED: DUONEB 0.5-3 MG/3 ml Neb IH ONE (06:49)
[2023-02-18] MEDS: DUONEB 0.5-3 MG/3 ml Neb IH SCH ×2 (06:58→10:40)
[2023-02-18] MEDS: ADVAIR 500-50 DISKUS IH SCH (06:58)
[2023-02-18 07:11] VITALS: RESP 18
[2023-02-18] MEDS: HUMALOG SQ SCH ×2 (08:13→12:02)
[2023-02-18] MEDS: HUMALOG SQ PRN ×2 (08:13→12:03)
[2023-02-18] MEDS: ZOLOFT 50 MG TABLET PO SCH (09:06)
[2023-02-18] MEDS: Klor Con PO SCH (09:06)
[2023-02-18] MEDS: Lantus Insulin SQ SCH (09:06)
[2023-02-18] MEDS: Toprol-Xl 25MG Tablets PO SCH (09:06)
[2023-02-18] MEDS: Zithromax 500 MG/ 250 ML NaCl Premix 500 MG/250 ML IVPB IV SCH (09:06)
[2023-02-18] MEDS: ENOXAPARIN SODIUM SQ SCH (09:06)
[2023-02-18] MEDS: Mucinex 600MG ER Tabs PO SCH (09:06)
[2023-02-18] MEDS: FEOSOL 325 MG PO SCH (09:06)
[2023-02-18] MEDS: ECOTRIN 81 MG PO SCH (09:06)
[2023-02-18] MEDS: solu-MEDROL 60 MG, Sterile H2O 10 ml 2 ML IV SCH ×2 (09:07)
[2023-02-18] MEDS: NORVASC 5 MG PO SCH (09:07)
[2023-02-18 10:45] VITALS: O2SAT 95
--- NOTE | 2023-02-18 11:10 | PCM.DS ---
Discharge Summary Date of Admission: 02/15/23 08:00 Date of Discharge: 02/18/23 Admitting Physician: PAM MINER MD Primary Care Provider: FRANKI TOBAR Allergies Allergies vancomycin Adverse Reaction (Severe, Verified 02/14/23 01:54) pt states causes kidney damage ALLERGIC TO IV ONLY IV contrast dye Adverse Reaction (Severe, Uncoded 02/14/23 01:54) Hospital Summary - Hospital Course Hospital Course: 02/16/23 is a 82 year old female with COPD, CHF who presented to ER with 4 days of progressively worsening SOB, cough, and wheezing. Patient was brought into the ED where she was given 125 mg of IV solumedrol, duonebs and 2-3 liters of NC and appeared to improve but still had wheezing, so ED provider requested admission. Work up also revealed RSV+ and a pBNP elevated. Patient denies fevers, chills, nausea, vomiting, diarrhea or worsening swelling. CXR showing new cardiomegaly and central vascular prominence concerning for cardiac decompensation/CHF versus fluid overload. New right infrahilar infiltra te/atelectasis and left midlung discoid atelectasis/scarring. She is on at baseline 2LNC at HS. She is not requiring oxygen during he day. She continues to some wheezing throughout but lung sounds have improved since admission. Glucose increased due to steroids. Will reduce steroid dose. Insulin doses changed. Patient states her schedule announcer has told her she is diabetic in the past but she has never been on medications. Will need to start her on oral regimen prior to discharge with follow up. A1C 7.15, blood sugars elevated since admission. Continue diuresis, abx, steroids.She denies CP, Abd. pain, N/V/D. 02/17/23 Pt resting in bed. Lung sounds have improved since yesterday. She continues to have some wheezing of left lower lobe. BRANDEN has worsened will stop Lasix. She is requesting to get up and walk today. PT ordered and to also assess for any home needs prior to d/c. Continue abx, steroids.She denies CP, Abd. pain, N/V/D. 02/18/23 Pt sitting up in the chair. She reports she is feeling much better today. Lungs sounds have improved. BRANDEN has improved but will need to f/u with nephrology in 1 week. Lasix to be held until she follows up. She did qualify for home O2 with 6 minute walk test. She also qualified for O2 at HS as overnight pulse ox dropped in the 80's. She will need to f/u with PCP to see if she needs to continue this. Will continue steroids and antibiotics OP. She denies any further concerns at this time. - Vitals & Intake/Output Vital Signs: Vital Signs Temperature 96.0 F 02/18/23 07:15 Pulse Rate 79 02/18/23 10:43 Respiratory Rate 18 02/18/23 10:43 Blood Pressure 138/70 02/18/23 07:15 O2 Sat by Pulse Oximetry 95 02/18/23 10:43 Intake & Output: Intake & Output 02/15/23 02/16/23 02/17/23 02/18/23 11:59 11:59 11:59 11:59 Intake Total 1020 800 970 600 Output Total 3450 1850 1300 800 Balance -2430 -1050 -330 -200 Weight 114.2 kg 114.2 kg 115.5 kg - Lab Result Diagrams: 02/18/23 04:49 02/18/23 04:49 Lab Results-Last 24 Hrs: Lab Results-Last 24 Hours 02/17/23 02/17/23 02/17/23 Range/Units 11:34 16:45 21:40 WBC (4.0-10.5) x10^3/uL RBC (4.1-5.4) x10^6/uL Hgb (12.0-16.0) g/dL Hct (35-47) % MCV (78-100) fL MCH (26-32) pg MCHC (32-36) g/dL RDW (11.5-14.0) % Plt Count (150-450) x10^3/uL MPV (7.5-11.0) fL Sodium (137-145) mmol/L Potassium (3.5-5.1) mmol/L Chloride (98-107) mmol/L Carbon Dioxide (22-30) mmol/L Anion Gap (5-15) MEQ/L BUN (7-17) mg/dL Creatinine (0.52-1.04) mg/dL Estimated GFR ML/MIN Glucose (74-106) mg/dL POC Glucometer 328 H 159 H 296 H (74 to 106) mg/dL Calcium (8.4-10.2) mg/dL Total Bilirubin (0.2-1.3) mg/dL AST (14-36) U/L ALT (0-35) U/L Alkaline Phosphatase (38-126) U/L NT-Pro-B Natriuret Pep (<300) pg/mL Serum Total Protein (6.3-8.2) g/dL Albumin (3.5-5.0) g/dL 02/18/23 02/18/23 02/18/23 Range/Units 04:49 04:49 04:49 WBC 14.1 H (4.0-10.5) x10^3/uL RBC 3.76 L (4.1-5.4) x10^6/uL Hgb 11.0 L (12.0-16.0) g/dL Hct 35.4 (35-47) % MCV 94.1 (78-100) fL MCH 29.3 (26-32) pg MCHC 31.1 L (32-36) g/dL RDW 14.4 H (11.5-14.0) % Plt Count 262 (150-450) x10^3/uL MPV 10.3 (7.5-11.0) fL Sodium 138 (137-145) mmol/L Potassium 4.0 (3.5-5.1) mmol/L Chloride 99 (98-107) mmol/L Carbon Dioxide 31 H (22-30) mmol/L Anion Gap 12.0 (5-15) MEQ/L BUN 65 H (7-17) mg/dL Creatinine 1.55 H (0.52-1.04) mg/dL Estimated GFR 33.5 ML/MIN Glucose 229 H (74-106) mg/dL POC Glucometer (74 to 106) mg/dL Calcium 8.8 (8.4-10.2) mg/dL Total Bilirubin 0.30 (0.2-1.3) mg/dL AST 17 (14-36) U/L ALT 17 (0-35) U/L Alkaline Phosphatase 52 (38-126) U/L NT-Pro-B Natriuret Pep 1620 (<300) pg/mL Serum Total Protein 6.2 L (6.3-8.2) g/dL Albumin 3.4 L (3.5-5.0) g/dL 02/18/23 Range/Units 07:10 WBC (4.0-10.5) x10^3/uL RBC (4.1-5.4) x10^6/uL Hgb (12.0-16.0) g/dL Hct (35-47) % MCV (78-100) fL MCH (26-32) pg MCHC (32-36) g/dL RDW (11.5-14.0) % Plt Count (150-450) x10^3/uL MPV (7.5-11.0) fL Sodium (137-145) mmol/L Potassium (3.5-5.1) mmol/L Chloride (98-107) mmol/L Carbon Dioxide (22-30) mmol/L Anion Gap (5-15) MEQ/L BUN (7-17) mg/dL Creatinine (0.52-1.04) mg/dL Estimated GFR ML/MIN Glucose (74-106) mg/dL POC Glucometer 236 H (74 to 106) mg/dL Calcium (8.4-10.2) mg/dL Total Bilirubin (0.2-1.3) mg/dL AST (14-36) U/L ALT (0-35) U/L Alkaline Phosphatase (38-126) U/L NT-Pro-B Natriuret Pep (<300) pg/mL Serum Total Protein (6.3-8.2) g/dL Albumin (3.5-5.0) g/dL Micro Results-Entire Visit: Microbiology 02/13/23 23:05 Blood Culture - Final Blood 02/13/23 23:10 Blood Culture - Final Blood Accuchecks Date 02/18/23 Date 02/17/23 Time 16:55 - Procedures and Test Procedures and Tests throughout Hospitalization: Therapy Orders & Screens 02/13/23 22:41 Respiratory Therapy Assessment UD Comment: 02/14/23 01:00 EKG REPEAT IN AM Comment: Oxygen Nasal Cannula 2 lpm Comment: Respiratory Therapy Consult ONCE Comment: Reason For Exam: 02/14/23 01:52 RT Screen per Nursing Assess ONCE Comment: Protocol Order Physician Instructions: Greater than 3 points order RT Admission Screen Reason For Exam: Triggered on Admission Diagnosis: RSV, elevated BNP, PNE Diagnosis: RSV, elevated BNP, PNE Pneumonia: Yes Home O2: No Asthma: No CHF: Yes Home CPAP/BIPAP: No Home Nebs/MDI: Yes Total Points: 11 ST Screen per Nursing Assess ONCE Comment: Protocol Order Physician Instructions: Greater than [address] Admission Screening Reason For Exam: Triggered on Admission Diagnosis: RSV, elevated BNP, PNE CVA/Dyshpagia/Aphasia: No Cognitive Deficits: No Dehydration/Nutrition Deficit: No Reflux: No Oral-Motor Difficulties: No Pneumonia: Yes Fdc Resident: No Total Points: 5 02/14/23 09:33 FLUTTER [Flutter Therapy] UD Comment: Diagnosis: RSV, elevated BNP, PNE Incentive Spirometry UD Comment: Diagnosis: RSV, elevated BNP, PNE 02/16/23 11:17 Respiratory MDI BID Comment: Diagnosis: RSV, elevated BNP, PNE 02/17/23 08:42 PT Eval & Treat (MD Order) ONCE Reason for Eval:: Pt wants to get up and walk today. Assess for any home needs. Diagnosis: RSV, elevated BNP, PNE Discharge Exam General Appearance: no apparent distress, alert Neurologic Exam: alert, 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, cooperative, normal mood/affect, nml cerebellar function, sensation nml, No motor deficits Eye Exam: PERRL, EOMI, eyes nml inspection Ears, Nose, Throat Exam: normal ENT inspection, pharynx normal, moist mucous membranes Neck Exam: normal inspection, non-tender, supple, full range of motion Respiratory Exam: normal breath sounds, lungs clear, wheezing, No respiratory distress Cardiovascular Exam: regular rate/rhythm, normal heart sounds Gastrointestinal/Abdomen Exam: soft, No tenderness, No mass Pelvic Exam: deferred Rectal Exam: deferred Back Exam: normal inspection, normal range of motion, No CVA tenderness, No vertebral tenderness Extremity Exam: normal inspection, normal range of motion Skin Exam: normal color, warm, dry Final Diagnosis/Problem List - Final Discharge Diagnosis/Problem (1) RSV (acute bronchiolitis due to respiratory syncytial virus) Current Visit: Yes Status: Acute (2) Right lower lobe pulmonary infiltrate Current Visit: Yes Status: Acute Code(s): R91.8 - OTHER NONSPECIFIC ABNORMAL FINDING OF LUNG FIELD (3) Iuouv-vl-nhwsylp kidney injury Current Visit: Yes Status: Acute Code(s): N17.9 - ACUTE KIDNEY FAILURE, UNSPECIFIED; N18.9 - CHRONIC KIDNEY DISEASE, UNSPECIFIED (4) CHF (congestive heart failure) Current Visit: Yes Status: Acute Code(s): I50.9 - HEART FAILURE, UNSPECIFIED (5) COPD (chronic obstructive pulmonary disease) Current Visit: Yes Status: Acute (6) Elevated brain natriuretic peptide (BNP) level Current Visit: Yes Status: Acute Code(s): R79.89 - OTHER SPECIFIED ABNORMAL FINDINGS OF BLOOD CHEMISTRY (7) HTN (hypertension) Current Visit: Yes Status: Acute Code(s): I10 - ESSENTIAL (PRIMARY) HYPERTENSION (8) Hyperglycemia Current Visit: Yes Status: Acute Code(s): R73.9 - HYPERGLYCEMIA, UNSPECIFIED (9) Hypokalemia Current Visit: Yes Status: Acute Code(s): E87.6 - HYPOKALEMIA (10) Elevated d-dimer Current Visit: Yes Status: Acute Assessment & Plan: (1) RSV (acute bronchiolitis due to respiratory syncytial virus) Current Visit: Yes Status: Acute Assessment & Plan: -Supportive therapies - on Baseline home o2 of 2LNC at HS - Steroids, albuterol, duonebs 02/18/23 - Qualified for 2LNC at all times (2) Right lower lobe pulmonary infiltrate Current Visit: Yes Status: Acute Assessment & Plan: -CXR showing shows right lower lobe infiltrate versus fluid versus both infiltrate and fluid. Patient's viral swabs are positive for RSV. -Will treat with ceftriaxone/azithromycin -Continue current management with ceftriaxone/azithromycin -CT showing no abnormality -Steroids, albuterol, duonebs Code(s): R91.8 - OTHER NONSPECIFIC ABNORMAL FINDING OF LUNG FIELD (3) Bijfw-zb-gbspzof kidney injury Current Visit: Yes Status: Acute Assessment & Plan: - Baseline creat 1.17 - Follows Dr. Thornton- nephrology - Discussed CT of atrophic left kidney- pt reports no prior knowledge of this.- F/u Op with Dr. Thornton to discuss. - worsening renal function today, Creat 1.70 - reduced Lasix to BID dosing- Lasix 40mg daily at home 02/17/22 - worsening BRANDEN creat 1.90 - Stop lasix 02/18/23 - f/u with nephrology - hold lasix until appt - Labs improved Code(s): N17.9 - ACUTE KIDNEY FAILURE, UNSPECIFIED; N18.9 - CHRONIC KIDNEY DISEASE, UNSPECIFIED (4) CHF (congestive heart failure) Current Visit: Yes Status: Acute Assessment & Plan: - On admission BNP elevated with infiltration vs fluid on imaging - decreased IV lasix 40 bid due to BRANDEN - no edema /2 - BNP in AM / - BNP-1620- improved Code(s): I50.9 - HEART FAILURE, UNSPECIFIED (5) COPD (chronic obstructive pulmonary disease) Current Visit: Yes Status: Acute Assessment & Plan: -Follow with Dr. Rivera- pulmonology OP -Conitue Azithromycin/ceftriaxone, solumedrol, duonebs, advair -Mucinex -Lovenox -CT chest w/o contrast due to GFR- no acute abnormalities (6) Elevated brain natriuretic peptide (BNP) level Current Visit: Yes Status: Acute Assessment & Plan: -h/o congestive HF, no recent echo -No US available for echo today due to holiday Code(s): R79.89 - OTHER SPECIFIED ABNORMAL FINDINGS OF BLOOD CHEMISTRY (7) HTN (hypertension) Current Visit: Yes Status: Acute Assessment & Plan: - hold lisinopril for now due to BRANDEN - Stat amlodipine 5mg daily - Hydralazine PRN Code(s): I10 - ESSENTIAL (PRIMARY) HYPERTENSION (8) Hyperglycemia Current Visit: Yes Status: Acute Assessment & Plan: - 2nd to steroid use - A1c at 7.15- no known hx of DM- + DM with A1C level - S/S, Humalog, Lispro- med changes today - ADA diet - will need oral regimen when d/c with follow up with PCP Code(s): R73.9 - HYPERGLYCEMIA, UNSPECIFIED (9) Hypokalemia Current Visit: Yes Status: Acute Assessment & Plan: - 3.6 resolved Code(s): E87.6 - HYPOKALEMIA (10) Elevated d-dimer Current Visit: Yes Status: Acute Assessment & Plan: - Unable to have CT with PE protocol due to kidney function - Unable to do VQ scan as there is no tech here until . - SOB has improved Code(s): R79.89 - OTHER SPECIFIED ABNORMAL FINDINGS OF BLOOD CHEMISTRY - Discharge Discharge Date: 02/18/23 Disposition: Home, Self-Care Condition: Good Prescriptions: Continue Aspirin EC 81 mg [Ecotrin 81 mg] 81 mg PO DAILY lisinopriL [Lisinopril] 40 mg PO DAILY ALPRAZolam [Alprazolam ER] 0.25 mg PO BID PRN Sertraline HCl 50 mg [Zoloft 50 mg Tablet] 50 mg PO DAILY Prednisone 10 mg [Deltasone 10 mg] 20 mg PO DAILY Metoprolol Succinate 25 mg Xl* [Toprol-Xl 25MG Tablets] 25 mg PO DAILY Ferrous Sulfate [Iron] 325 mg PO BID Donepezil HCl [Aricept] 5 mg PO QHS Hydrocodone/Acetaminophen [Hydrocodone-Acetamin 5-325 mg] 1 tab PO Q6HPRN PRN #7 tablet MDD 4 PRN Reason: Pain Losartan/Hydrochlorothiazide [Losartan-Hctz 100-25 mg Tab] 1 each PO DAILY Discontinued Furosemide 20 mg [Lasix 20 mg] 40 mg PO DAILY Instructions: Pneumonia in adults, Heart Failure, Adult (DC), Oxygen Therapy, Adult (DC), Respiratory Syncytial Virus, Adult (DC) Additional Instructions: Hold lasix for now x 1 week. Follow up with nephrology and ask if this can be continued after labs are checked. Continue home dose of steroids. Follow up with: NISHA RIVERA [CONSULTING PHYSICIAN] - 03/06/23 2:15 pm ([place] Office) NORBERT THORNTON [CONSULTING PHYSICIAN] - 02/20/23 12:00 pm ([place] Office) FRANKI TOBAR MD [Primary Care Provider] - 02/25/23 11:00 am Forms: Discharge Instructions
[2023-02-18 11:25] VITALS: BP 148/68; PULSE 71; TEMP 97
== END 2023-02-18 13:50 | disposition home or self-care (01) | DRG 866 ==
LOC: ED 22:02 → MED SURG 02-14 00:59 → OBSVTOIN 02-15 08:00
PROVIDERS: ADMIT Student in an Organized Health Care Education/Training Program; ATTEND Student in an Organized Health Care Education/Training Program
DX: B97.4 Respiratory syncytial virus as the cause of diseases classified elsewhere (principal); N17.9 Acute kidney failure, unspecified; I13.0 Hypertensive heart and chronic kidney disease with heart failure and stage 1 through stage 4 chronic kidney disease, or unspecified chronic kidney disease; R91.8 Other nonspecific abnormal finding of lung field; N18.9 Chronic kidney disease, unspecified; I50.9 Heart failure, unspecified; J44.9 Chronic obstructive pulmonary disease, unspecified; R73.9 Hyperglycemia, unspecified; E87.6 Hypokalemia; R06.02 Shortness of breath; Z79.899 Other long term (current) drug therapy; Z20.828 Contact with and (suspected) exposure to other viral communicable diseases; Z85.828 Personal history of other malignant neoplasm of skin
CPT/HCPCS: 0241U; 36000; 36415; 71045; 71250; 80053; 82947; 83036; 83735; 83880; 84132; 84145; 84484; 85025; 85027; 85379; 85610; 87040; 93005; 93041; 94640; 94667; 94668; 94760; 94762; 96365; 96374; 97161; 97530; 99285; G0378; Q3014; J0360; J0456; J0696; J1650; J1817; J1940; J2930; J7609; A9270-GY

== ENCOUNTER 2023-04-23 13:44 | Observation (INO) | payer MEDICARE ==
[2023-04-23] MEDS ORDERED: DUONEB 0.5-3 MG/3 ml Neb IH ONE ×2 (13:55→20:03)
[2023-04-23] MEDS: DUONEB 0.5-3 MG/3 ml Neb IH ONE (13:58)
--- NOTE | 2023-04-23 14:10 | ERPHSYRPT ---
- History of Present Illness Time Seen by Provider: 04/23/23 13:54 Patient Subjective Stated Complaint: C/O SOB for 3 days. States 02 sats decreased to 89% on room air today and Dr. Tobar's office told her to go to the ER. Triage Nursing Assessment: Patient brought back to ER in a W/C. She is alert and oriented. SOB noted with exertion. Wheezes present. Forceful, dry, non- productive cough. Pale. APARICIO WNL. Physician History: 82-year-old female with multiple medical problems including COPD with some element of respiratory failure needing 2 L oxygen at nighttime presented in the ER with complains of increasing cough and difficulty breathing with wheezing for the last 2 to 3 days. Patient reports coughing up yellow-green sputum moderate in amount with chest tightness congestion and wheezing. She was seen earlier at primary care office with a chest x-ray which was negative, given a shot of steroids and Rocephin. Patient went home and her shortness of breath was getting worse. Patient oxygen saturation is in mid 80s without oxygen on presentation. Patient reports usually she does not use oxygen during the daytime. She is placed on 3 L oxygen and improved to 94%. She has diffuse wheezing all over with some rales. Allergies/Adverse Reactions: vancomycin Adverse Reaction (Severe, Verified 04/23/23 13:46) pt states causes kidney damage ALLERGIC TO IV ONLY IV contrast dye Adverse Reaction (Severe, Uncoded 04/23/23 13:46) Home Medications: Aspirin EC 81 mg [Ecotrin 81 mg] 81 mg PO DAILY 11/04/18 [History] ALPRAZolam [Alprazolam ER] 0.25 mg PO BID PRN 07/16/19 [History] lisinopriL [Lisinopril] 40 mg PO DAILY 07/16/19 [History] Donepezil HCl [Aricept] 5 mg PO QHS 11/04/21 [History] Ferrous Sulfate [Iron] 325 mg PO BID 11/04/21 [History] Metoprolol Succinate 25 mg Xl* [Toprol-Xl 25MG Tablets] 25 mg PO DAILY 11/04/21 [History] Prednisone 10 mg [Deltasone 10 mg] 20 mg PO DAILY 11/04/21 [History] Sertraline HCl 50 mg [Zoloft 50 mg Tablet] 50 mg PO DAILY 11/04/21 [History] Losartan/Hydrochlorothiazide [Losartan-Hctz 100-25 mg Tab] 1 each PO DAILY 02/13/23 [History] Hx Tetanus, Diphtheria Vaccination/Date Given: Yes Hx Influenza Vaccination/Date Given: No Hx Pneumococcal Vaccination/Date Given: No Immunizations Up to Date: Yes Travel Risk - International Travel Have you traveled outside of the country in past 3 weeks: No - Coronavirus Screening Are you exhibiting any of the following symptoms?: Yes Symptoms: Cough: New Onset, Shortness of Breath Close contact with a COVID-19 positive Pt in past 14-21 Days: No - Vaccine Status Have you recieved a Covid-19 vaccination: Yes 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: [employer] - Vaccination Dates Date of 2cond Vaccination (if applicable): unknown - Review of Systems Constitutional: Fatigue Eyes: No Symptoms Ears, Nose, & Throat: Nose Congestion Respiratory: Cough, Dyspnea, Dyspnea on Exertion (ORELLANA), Wheezing Cardiac: No Symptoms Abdominal/Gastrointestinal: No Symptoms Genitourinary Symptoms: No Symptoms Musculoskeletal: Arthralgias Skin: No Symptoms Neurological: No Symptoms Hematologic/Lymphatic: No Symptoms Immunological/Allergic: No Symptoms - Past Medical History Pertinent Past Medical History: Yes Neurological History: No Pertinent History ENT History: Cataracts Cardiac History: Congestive Heart Failure, Hypertension Respiratory History: COPD Endocrine Medical History: Other Musculoskeletal History: No Pertinent History GI Medical History: Diverticulitis, Diverticulosis, GERD, Other History: Other Psycho-Social History: Anxiety Female Reproductive Disorders: No Pertinent History Other Medical History: KIDNEYS, HX of hemodialysis. B TKA. - Past Surgical History Past Surgical History: Yes Neuro Surgical History: No Pertinent History Cardiac: No Pertinent History Respiratory: No Pertinent History Gastrointestinal: Appendectomy, Cholecystectomy, Colon Resection Genitourinary: No Pertinent History Musculoskeletal: Joint Replacement, Orthopedic Surgery Female Surgical History: Hysterectomy Other Surgical History: brittney knees, brittney wrist,. Skin cancer removed from face 2005. colostomy and reversal - Social History Smoking Status: Former smoker Exposure to second hand smoke: No Alcohol Use: None Drug Use: none Patient Lives Alone: No Significant Family History: no pertinent family hx - Nursing Vital Signs Nursing Vital Signs: Initial Vital Signs Temperature 96.6 F 04/23/23 13:47 Pulse Rate 73 04/23/23 13:47 Respiratory Rate 24 04/23/23 13:47 Blood Pressure 118/73 04/23/23 13:47 O2 Sat by Pulse Oximetry 90 L 04/23/23 13:47 Pain Scale Pain Intensity 0 - Physical Exam General Appearance: mild distress, alert Eye Exam: PERRL/EOMI, eyes nml inspection Ears, Nose, Throat Exam: hearing grossly normal, normal ENT inspection Neck Exam: normal inspection, non-tender, supple, full range of motion Respiratory Exam: diminished breath sounds, crackles/rales, wheezing Cardiovascular/Chest Exam: normal heart sounds, regular rate/rhythm Abdominal/Gastrointestinal Exam: soft, normal bowel sounds, No tenderness Extremity Exam: non-tender, normal range of motion Neurologic Exam: alert, 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, cooperative SpO2 Interpretation: hypoxic SpO2: 90 O2 Delivery: Nasal Cannula - Course EKG Interpreted by Me: RATE (72), Sinus Rhythm, Left [place] Deviation, LAFB, Right Bundle Branch Block, Non-specific ST Changes Ordered Tests: Active Orders 24 hr Category Date Time Status Pathology Secretary STAT Care 04/23/23 14:05 Active EKG-ER Only STAT Care 04/23/23 14:05 Active Oxygen-ED Only Nasal Cannula 3 lpm Care 04/23/23 14:05 Active ARTERIAL BLOOD GASES Stat Lab 04/23/23 14:05 Completed BLOOD CULTURE Stat Lab 04/23/23 14:05 Received CBC W DIFF Stat Lab 04/23/23 14:46 Completed CMP Stat Lab 04/23/23 14:46 Completed Lactic Acid Stat Lab 04/23/23 14:05 Completed Lactic Acid Stat Lab 04/23/23 16:39 Received MAGNESIUM Stat Lab 04/23/23 14:46 Completed NT PRO BNPII Stat Lab 04/23/23 14:46 Completed TROPONIN Q4H Lab 04/23/23 14:46 Completed TROPONIN Q4H Lab 04/23/23 18:15 Ordered TROPONIN Q4H Lab 04/23/23 22:15 Ordered Respiratory Therapy Assessment DAILY RT 04/23/23 14:02 Active Transfer Order Routine Transfer 04/23/23 Ordered Medication Summary Discontinued Medications Generic Name Dose Route Start Last Admin Trade Name Freq PRN Reason Stop Dose Admin Albuterol/Ipratropium Confirm 04/23/23 13:55 Ipratropium/Albuterol Sulfate 3 Ml Ampul.Neb Administered 04/23/23 13:56 Dose 3 ml IH .STK-MED ONE Albuterol/Ipratropium 3 ml 04/23/23 13:57 04/23/23 13:58 Ipratropium/Albuterol Sulfate 3 Ml Ampul.Neb IH 04/23/23 13:58 3 ml STAT ONE Administration Ceftriaxone Sodium/Dextrose 2 g in 50 mls @ 100 mls/hr 04/23/23 14:05 04/23/23 14:43 Rocephin 2 Gm-D5w 50ml Bag IV 04/23/23 14:34 Not Given STAT STA Azithromycin 500 mg in 250 mls @ 250 mls/hr 04/23/23 14:05 04/23/23 15:48 Zithromax 500 Mg/ 250 Ml Nacl Premix IV 04/23/23 15:04 Infused STAT STA Infusion Azithromycin Confirm 04/23/23 14:42 Zithromax 500 Mg/ 250 Ml Nacl Premix Administered 04/23/23 14:43 Dose 500 mg in 250 mls @ ud IV .STK-MED ONE Lab/Rad Data: Laboratory Result Diagrams 04/23/23 14:46 04/23/23 14:46 Laboratory Results 04/23/23 04/23/23 04/23/23 Range/Units 14:46 14:46 14:46 WBC (4.0-10.5) x10^3/uL RBC (4.1-5.4) x10^6/uL Hgb (12.0-16.0) g/dL Hct (35-47) % MCV (78-100) fL MCH (26-32) pg MCHC (32-36) g/dL RDW (11.5-14.0) % Plt Count (150-450) x10^3/uL MPV (7.5-11.0) fL Gran % (36.0-66.0) % Immature Gran % (Auto) (0.00-0.4) % Nucleat RBC Rel Count (0.00-0.1) % Eos # (Auto) (0-0.5) x10^3/uL Immature Gran # (Auto) (0.00-0.03) x10^3u/L Absolute Lymphs (auto) (1.0-4.6) x10^3/uL Absolute Monos (auto) (0.0-1.3) x10^3/uL Absolute Nucleated RBC (0.00-0.01) x10^3u/L Lymphocytes % (24.0-44.0) % Monocytes % (0.0-12.0) % Eosinophils % (0.00-5.0) % Basophils % (0.0-0.4) % Absolute Granulocytes (1.4-6.9) x10^3/uL Basophils # (0-0.4) x10^3/uL Puncture Site pCO2 (35-45) mmHg pO2 (75-100) mmHg Base Excess (-2.0-2.0) O2 Saturation (94-100) g/dF ABG pH (7.35-7.45) ABG HCO3 (22-28) ABG O2 Sat (Measured) (95-100) % Eleuterio Test A-a Gradient a/A Ratio Hemoglobin Carboxyhemoglobin (0.0-6.9) % THgb Methemoglobin (1.4-1.5) % Potassium 3.6 (3.5-5.1) Temperature C POC O2 Flow Rate % Sodium 141 (135-145) mmol/L Chloride 103 (98-107) mmol/L Carbon Dioxide 27 (22-30) mmol/L Anion Gap 14.1 (5-15) MEQ/L BUN 37 H (7-17) mg/dL Creatinine 1.76 H (0.52-1.04) mg/dL Estimated GFR 28.7 ML/MIN Glucose 163 H (74-106) mg/dL Lactic Acid (0.4-2.0) Calcium 8.8 (8.4-10.2) mg/dL Magnesium 2.0 (1.6-2.3) mg/dL Total Bilirubin 0.80 (0.2-1.3) mg/dL AST 17 (14-36) U/L ALT 13 (0-35) U/L Alkaline Phosphatase 64 (38-126) U/L Troponin I 0.022 (0.000-0.034) ng/mL NT-Pro-B Natriuret Pep 738 (<300) pg/mL Serum Total Protein 6.1 L (6.3-8.2) g/dL Albumin 3.8 (3.5-5.0) g/dL Influenza Type A Ag NEGATIVE (NEGATIVE) Influenza Type B Ag NEGATIVE (NEGATIVE) RSV (PCR) NEGATIVE (NEGATIVE) SARS-CoV-2 (PCR) NEGATIVE (NEGATIVE) 04/23/23 04/23/23 Range/Units 14:46 14:05 WBC 15.5 H (4.0-10.5) x10^3/uL RBC 3.62 L (4.1-5.4) x10^6/uL Hgb 11.3 L (12.0-16.0) g/dL Hct 35.0 (35-47) % MCV 96.7 (78-100) fL MCH 31.2 (26-32) pg MCHC 32.3 (32-36) g/dL RDW 14.1 H (11.5-14.0) % Plt Count 210 (150-450) x10^3/uL MPV 11.1 H (7.5-11.0) fL Gran % 78.0 H (36.0-66.0) % Immature Gran % (Auto) 1.2 H (0.00-0.4) % Nucleat RBC Rel Count 0.0 (0.00-0.1) % Eos # (Auto) 0.36 (0-0.5) x10^3/uL Immature Gran # (Auto) 0.18 H (0.00-0.03) x10^3u/L Absolute Lymphs (auto) 1.57 (1.0-4.6) x10^3/uL Absolute Monos (auto) 1.23 (0.0-1.3) x10^3/uL Absolute Nucleated RBC 0.00 (0.00-0.01) x10^3u/L Lymphocytes % 10.1 L (24.0-44.0) % Monocytes % 7.9 (0.0-12.0) % Eosinophils % 2.3 (0.00-5.0) % Basophils % 0.5 (0.0-0.4) % Absolute Granulocytes 12.07 H (1.4-6.9) x10^3/uL Basophils # 0.07 (0-0.4) x10^3/uL Puncture Site N/A pCO2 55 H (35-45) mmHg pO2 38 L* (75-100) mmHg Base Excess 5.3 H (-2.0-2.0) O2 Saturation 46.4 L (94-100) g/dF ABG pH 7.37 (7.35-7.45) ABG HCO3 31.8 H* (22-28) ABG O2 Sat (Measured) 49.0 L (95-100) % Eleuterio Test n/a A-a Gradient 93 a/A Ratio 0.29 Hemoglobin 11.4 Carboxyhemoglobin 4.6 (0.0-6.9) % THgb Methemoglobin 0.8 L (1.4-1.5) % Potassium 3.2 L (3.5-5.1) Temperature 37.0 C POC O2 Flow Rate 28 % Sodium (135-145) mmol/L Chloride (98-107) mmol/L Carbon Dioxide (22-30) mmol/L Anion Gap (5-15) MEQ/L BUN (7-17) mg/dL Creatinine (0.52-1.04) mg/dL Estimated GFR ML/MIN Glucose (74-106) mg/dL Lactic Acid 2.1 H (0.4-2.0) Calcium (8.4-10.2) mg/dL Magnesium (1.6-2.3) mg/dL Total Bilirubin (0.2-1.3) mg/dL AST (14-36) U/L ALT (0-35) U/L Alkaline Phosphatase (38-126) U/L Troponin I (0.000-0.034) ng/mL NT-Pro-B Natriuret Pep (<300) pg/mL Serum Total Protein (6.3-8.2) g/dL Albumin (3.5-5.0) g/dL Influenza Type A Ag (NEGATIVE) Influenza Type B Ag (NEGATIVE) RSV (PCR) (NEGATIVE) SARS-CoV-2 (PCR) (NEGATIVE) - Progress Progress: improved, re-examined Air Movement: fair Progress Note: 04/23/23 17:06 82-year-old is evaluated for worsening cough and difficulty breathing. Patient has diffuse wheezing on presentation with hypoxia, placed on 3 L oxygen and given DuoNeb, on reevaluation feeling better. Chest x-ray reviewed from earlier this morning did not show any acute findings. White count of 15, mild BRANDEN with a creatinine of 1.7 with baseline around 1.4. She has already received Rocephin and Solu-Medrol. She is started on Zithromax. Troponins are negative. EKG did not show any acute ST elevations. I believe patient has COPD exacerbation with respiratory failure, discussed with hospitalist Dr. Montez, reviewed history, workup and agreed with admission. I have discussed the results of workup with patient and plan of admission which she understands and agrees. Blood Culture(s) Obtained: Yes Antibiotics given: Yes Discussed with Dr.: Other (Dr. Montez) Will see patient in: hospital (observation) Counseled pt/family regarding: lab results, diagnosis, rad results Medical Desision Making - Discussion of managment Care discussed with:: hospitalist Reviewed:: Test results Agreed on:: Treatment plan, place in obs Will see patient: in hospital - Diagnostic Testing Diagnostic test were ordered, analyzed, and reviewed by me: Yes Radiological Interpretation: Reviewed by me - Risk of complications The pt has a high risk of morbidity or mortality based on: Decision regarding hospitilization or escalation of hosp level of care - Departure Departure Disposition: Observation Clinical Impression: Respiratory failure Qualifiers: Chronicity: acute Respiratory failure complication: hypoxia Qualified Code(s): J96.01 - Acute respiratory failure with hypoxia COPD (chronic obstructive pulmonary disease) Qualifiers: COPD type: COPD with acute exacerbation Qualified Code(s): J44.1 - Chronic obstructive pulmonary disease with (acute) exacerbation Condition: Stable Critical Care Time: No Referrals: FRANKI TOBAR MD [Primary Care Provider] - Follow up/PCP as directed Instructions: Chronic Obstructive Pulmonary Disease
[2023-04-23 14:38] LABS: A-aADO2 93; ABG HEMOGLOBIN 11.4; ABG POTASSIUM 3.2 (3.5-5.1); ARTERIAL BLOOD GAS BASE EXCESS 5.3 (-2.0-2.0); ARTERIAL BLOOD GAS FIO2 28 %; ARTERIAL BLOOD GAS PCO2 55 mmHg (35-45); CARBOXYHEMOGLOBIN 4.6 % THgb (0.0-6.9); HCO3- 31.8 (22-28); HGB O2 SAT 46.4 g/dF (94-100); Lactic Acid 2.1 (0.4-2.0); Methhemoglobin 0.8 % (1.4-1.5); paO2 pAO1 0.29
[2023-04-23 14:39] LABS: ARTERIAL BLOOD GAS PO2 38 mmHg (75-100)
[2023-04-23] MEDS ORDERED: Zithromax 500 MG/ 250 ML NaCl Premix 500 MG/250 ML IVPB IV ONE (14:42)
[2023-04-23] MEDS: ROCEPHIN 2 Gm-D5w 50ML BAG** 2 G/50 ML IVPB IV STA (14:43)
[2023-04-23] MEDS: Zithromax 500 MG/ 250 ML NaCl Premix 500 MG/250 ML IVPB IV STA (14:44)
[2023-04-23 14:46] LABS: Absolute Neutrophil Ct (ANC) 12.07 x10^3/uL (1.4-6.9); BASOPHIL % 0.5 % (0.0-0.4); Basophil (Absolute #) 0.07 x10^3/uL (0-0.4); Eosinophil % 2.3 % (0.00-5.0); Eosinophil (Absolute #) 0.36 x10^3/uL (0-0.5); Hemoglobin 11.3 g/dL (12.0-16.0); IMMATURE GRAN # 0.18 x10^3u/L (0.00-0.03); IMMATURE GRAN % 1.2 % (0.00-0.4); Lymphocyte (Absolute #) 1.57 x10^3/uL (1.0-4.6); Lymphocytes % 10.1 % (24.0-44.0); Mean Cell Volume 96.7 fL (78-100); Mean Corpuscular Hemoglobin 31.2 pg (26-32); Mean Corpuscular Hgb Concent. 32.3 g/dL (32-36); Mean Platelet Volume 11.1 fL (7.5-11.0); Monocyte (Absolute #) 1.23 x10^3/uL (0.0-1.3); Monocytes % 7.9 % (0.0-12.0); Platelet Count 210 x10^3/uL (150-450); Red Blood Count 3.62 x10^6/uL (4.1-5.4); Red Cell Distribution Width 14.1 % (11.5-14.0); White Blood Count 15.5 x10^3/uL (4.0-10.5)
[2023-04-23 14:47] LABS: ARTERIAL BLOOD GAS pH 7.37 (7.35-7.45)
[2023-04-23 15:22] LABS: ALBUMIN 3.8 g/dL (3.5-5.0); ANION GAP 14.1 MEQ/L (5-15); BILIRUBIN,TOTAL 0.8 mg/dL (0.2-1.3); Calcium 8.8 mg/dL (8.4-10.2); Creatinine 1 1.76 mg/dL (0.52-1.04); EST GLOMERULAR FILTRATION RATE 28.7 ML/MIN; Potassium 3.6 mmol/L (3.5-5.1); Total Protein 6.1 g/dL (6.3-8.2)
[2023-04-23 16:00] LABS: INFLUENZA A NEGATIVE (NEGATIVE); INFLUENZA B NEGATIVE (NEGATIVE); RESPIRATORY SYNCTIAL VIRUS NEGATIVE (NEGATIVE); SARS-CoV-2 Xpert Express NEGATIVE (NEGATIVE)
[2023-04-23 17:59] LABS: Appearance Clear (Clear); Bilirubin Negative (Negative); Blood Negative (Negative); Epithelial Cells None Seen /HPF (None Seen); Glucose, Urine >=1000 mg/dL (Negative); Hyaline Casts NONE SEEN /LPF (0-2); Ketones Negative (Negative); Leukocyte Esterase Negative (Negative); Nitrite Negative (Negative); Ph 5.5 (4.6-8.0); Protein,Urine Dip Negative (Negative); RBC 0-2 /HPF (0-5); Urobilinogen 0.2 mg/dL (0.2); WBC 21-50 /HPF (0-5)
[2023-04-23 18:06] LABS: ADD URINE CULTURE? YES (NO); Bacteria Many /HPF (None Seen)
[2023-04-23] MEDS: DUONEB 0.5-3 MG/3 ml Neb IH SCH ×2 (20:11→23:13)
--- NOTE | 2023-04-23 21:42 | PCM.HP ---
History of Present Illness - Chief Complaint Chief Complaint: ACUTE HYPOXIC RESP FAILURE, COPD EXAC Date: 04/23/23 History of Present Illness: Ms. Bragg is a 82 year-old female with chart diagnoses of COPD and CHF, HTN, and CKD who presents with shortness of breath and wheezing. She admits to 2-3 days of symptoms which prompted a visit to her PCP - she received shots of rocephin and steroids with no amelioration of her symptoms. Upon arrival to [place], her laboratory data was remarkable for an elevated lactate and a Cr of 1.76, she was requiring 3L oxygen, and no imaging was done. On my examination, she is wheezing but not in distress denying any current fevers, chills, nausea, vomiting, diarrhea, syncope, presyncope, visual changes, orthopnea, PND, odynophagia, dysphagia, chest pain, belly pain, dysuria, hematuria, melena, hematochezia, or neurological changes. All other systems were reviewed and were negative. - Review of Systems Constitutional: No Fever, No Chills Eyes: No Symptoms Ears, Nose, & Throat: No Symptoms Respiratory: Cough, Short Of Breath, Wheezing Cardiac: No Chest Pain, No Edema, No Syncope Abdominal/Gastrointestinal: No Abdominal Pain, No Nausea, No Vomiting, No Diarrhea Genitourinary Symptoms: No Dysuria Musculoskeletal: No Back Pain, No Neck Pain Skin: No Rash Neurological: No Dizziness, No Focal Weakness, No Sensory Changes Psychological: No Symptoms Endocrine: No Symptoms Hematologic/Lymphatic: No Symptoms Immunological/Allergic: No Symptoms Medications & Allergies Home Medications: Home Medication List Aspirin EC 81 mg [Ecotrin 81 mg] 81 mg PO DAILY 11/04/18 [History Co nfirmed 04/23/23] ALPRAZolam [Alprazolam ER] 1 mg PO BID PRN 07/16/19 [History Confirmed 04/23/23] Donepezil HCl [Aricept] 5 mg PO DAILY 11/04/21 [History Confirmed 04/23/23] Ferrous Sulfate [Iron] 325 mg PO BID 11/04/21 [History Confirmed 04/23/23] Metoprolol Succinate 25 mg Xl* [Toprol-Xl 25MG Tablets] 25 mg PO DAILY 11/04/21 [History Confirmed 04/23/23] Sertraline HCl 50 mg [Zoloft 50 mg Tablet] 50 mg PO DAILY 11/04/21 [History Confirmed 04/23/23] Losartan/Hydrochlorothiazide [Losartan-Hctz 100-25 mg Tab] 1 each PO DAILY 02/13/23 [History Confirmed 04/23/23] Empagliflozin [Jardiance] 10 mg PO DAILY 04/23/23 [History Confirmed 04/23/23] Furosemide 40 mg [Lasix 40 MG] 10 mg PO DAILY 04/23/23 [History Confirmed 04/23/23] Hydrocodone/Acetaminophen [Hydrocodone-Acetamin 5-325 mg] 1 tab PO TIDPRN PRN MDD 3 04/23/23 [History Confirmed 04/23/23] Potassium Chloride 20 meq PO DAILY 04/23/23 [History Confirmed 04/23/23] Allergies/Adverse Reactions: Allergies Allergy/AdvReac Type Severity Reaction Status Date / Time vancomycin AdvReac Severe Verified 04/23/23 18:17 IV contrast dye AdvReac Severe Uncoded 04/23/23 13:46 - Past Medical History Past Medical History: Yes Neurological History: No Pertinent History ENT History: Cataracts Cardiac History: Congestive Heart Failure, Hypertension Respiratory History: CHF, COPD, Pneumonia Endocrine Medical History: Diabetes Type II, Other Musculoskelatal History: No Pertinent History GI Medical History: Diverticulitis, Diverticulosis, GERD, Other History: Other Pyscho-Social History: Anxiety Reproductive Disorders: No Pertinent History Comment: Pt is no longer on dialysis - Female History Are you now?: No - Past Surgical History Past Surgical History: Yes Neuro Surgical History: No Pertinent History Cardiac History: No Pertinent History Respiratory Surgery: No Pertinent History GI Surgical History: Appendectomy, Cholecystectomy, Colon Resection Genitourinary Surgical Hx: No Pertinent History Musculskeletal Surgical Hx: Joint Replacement, Orthopedic Surgery Female Surgical History: Hysterectomy Other Surgical History: colostomy and reversal, bilateral knee replacement, skin cancer removal from face, right hand surgery Significant Family History: no pertinent family hx - Social History Smoking Status: Never smoker Exposure to second hand smoke: Yes Alcohol: None Drug Use: none - Social Determinants of Health Will the patient participate in the screening: Yes Do you worry about a steady place to live?: No Do you have any problems with any of the following?: Mold In the past 12 months,have you had to go without utilities?: No Have you or anyone in your house had to go without enough: No Transportation Issues: No Has anyone in your support network made you feel unsafe?: No Does the patient want assistance with any of the above?: Yes Comment: HELP WITH MOLD REMOVAL - Physical Exam Vital Signs: Vital Signs - 24 hr Temp Pulse Resp BP BP Pulse Ox 04/23/23 20:10 82 15 93 L 04/23/23 19:45 98.1 F 60 24 136/58 99 04/23/23 18:17 98.1 F 60 24 136/58 99 04/23/23 18:10 99 04/23/23 17:56 72 18 101/55 04/23/23 17:09 90 L 04/23/23 17:00 70 15 86/57 100 04/23/23 16:35 72 22 111/82 04/23/23 16:30 78 17 81/70 98 04/23/23 16:01 83 17 106/51 96 04/23/23 15:30 76 23 134/51 99 04/23/23 15:00 67 17 112/67 04/23/23 14:45 70 16 122/70 98 04/23/23 14:02 71 22 99 04/23/23 14:00 81 16 125/82 04/23/23 13:47 96.6 F 73 24 118/73 90 L General Appearance: no apparent distress, alert Neurologic Exam: alert, 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, cooperative, normal mood/affect, nml cereb ellar function, nml station & gait, sensation nml, No motor deficits Eye Exam: PERRL/EOMI, eyes nml inspection Ears, Nose, Throat Exam: normal ENT inspection, TMs normal, pharynx normal, moist mucous membranes Neck Exam: normal inspection, non-tender, supple, full range of motion Respiratory Exam: wheezing Cardiovascular Exam: regular rate/rhythm, normal heart sounds, normal peripheral pulses Gastrointestinal/Abdomen Exam: soft, normal bowel sounds, No tenderness, No mass Back Exam: normal inspection, normal range of motion, No CVA tenderness, No vertebral tenderness Extremity Exam: normal inspection, normal range of motion, pelvis stable Skin Exam: normal color, warm, dry, No rash Lymphatic Exam: No adenopathy Results - Labs Lab/Micro Results: Lab Results-Last 24 Hours 04/23/23 04/23/23 04/23/23 Range/Units 14:05 14:46 14:46 WBC 15.5 H (4.0-10.5) x10^3/uL RBC 3.62 L (4.1-5.4) x10^6/uL Hgb 11.3 L (12.0-16.0) g/dL Hct 35.0 (35-47) % MCV 96.7 (78-100) fL MCH 31.2 (26-32) pg MCHC 32.3 (32-36) g/dL RDW 14.1 H (11.5-14.0) % Plt Count 210 (150-450) x10^3/uL MPV 11.1 H (7.5-11.0) fL Gran % 78.0 H (36.0-66.0) % Immature Gran % (Auto) 1.2 H (0.00-0.4) % Nucleat RBC Rel Count 0.0 (0.00-0.1) % Eos # (Auto) 0.36 (0-0.5) x10^3/uL Immature Gran # (Auto) 0.18 H (0.00-0.03) x10^3u/L Absolute Lymphs (auto) 1.57 (1.0-4.6) x10^3/uL Absolute Monos (auto) 1.23 (0.0-1.3) x10^3/uL Absolute Nucleated RBC 0.00 (0.00-0.01) x10^3u/L Lymphocytes % 10.1 L (24.0-44.0) % Monocytes % 7.9 (0.0-12.0) % Eosinophils % 2.3 (0.00-5.0) % Basophils % 0.5 (0.0-0.4) % Absolute Granulocytes 12.07 H (1.4-6.9) x10^3/uL Basophils # 0.07 (0-0.4) x10^3/uL Puncture Site N/A pCO2 55 H (35-45) mmHg pO2 38 L* (75-100) mmHg Base Excess 5.3 H (-2.0-2.0) O2 Saturation 46.4 L (94-100) g/dF ABG pH 7.37 (7.35-7.45) ABG HCO3 31.8 H* (22-28) ABG O2 Sat (Measured) 49.0 L (95-100) % Eleuterio Test n/a A-a Gradient 93 a/A Ratio 0.29 Hemoglobin 11.4 Carboxyhemoglobin 4.6 (0.0-6.9) % THgb Methemoglobin 0.8 L (1.4-1.5) % Potassium 3.2 L 3.6 (3.5-5.1) Temperature 37.0 C POC O2 Flow Rate 28 % Sodium 141 (135-145) mmol/L Chloride 103 (98-107) mmol/L Carbon Dioxide 27 (22-30) mmol/L Anion Gap 14.1 (5-15) MEQ/L BUN 37 H (7-17) mg/dL Creatinine 1.76 H (0.52-1.04) mg/dL Estimated GFR 28.7 ML/MIN Glucose 163 H (74-106) mg/dL POC Glucometer (74 to 106) mg/dL Lactic Acid 2.1 H (0.4-2.0) Calcium 8.8 (8.4-10.2) mg/dL Magnesium 2.0 (1.6-2.3) mg/dL Total Bilirubin 0.80 (0.2-1.3) mg/dL AST 17 (14-36) U/L ALT 13 (0-35) U/L Alkaline Phosphatase 64 (38-126) U/L Troponin I (0.000-0.034) ng/mL NT-Pro-B Natriuret Pep 738 (<300) pg/mL Serum Total Protein 6.1 L (6.3-8.2) g/dL Albumin 3.8 (3.5-5.0) g/dL Urine Color (Yellow) Urine Appearance (Clear) Urine pH (4.6-8.0) Ur Specific Greene (1.005-1.030) Urine Protein (Negative) Urine Glucose (UA) (Negative) mg/dL Urine Ketones (Negative) Urine Blood (Negative) Urine Nitrite (Negative) Urine Bilirubin (Negative) Urine Urobilinogen (0.2) mg/dL Ur Leukocyte Esterase (Negative) U Hyaline Cast (Auto) (0-2) /LPF Urine Microscopic RBC (0-5) /HPF Urine Microscopic WBC (0-5) /HPF Ur Epithelial Cells (None Seen) /HPF Urine Bacteria (None Seen) /HPF Urine Culture Reflexed (NO) Influenza Type A Ag (NEGATIVE) Influenza Type B Ag (NEGATIVE) RSV (PCR) (NEGATIVE) SARS-CoV-2 (PCR) (NEGATIVE) 04/23/23 04/23/23 04/23/23 Range/Units 14:46 14:46 17:34 WBC (4.0-10.5) x10^3/uL RBC (4.1-5.4) x10^6/uL Hgb (12.0-16.0) g/dL Hct (35-47) % MCV (78-100) fL MCH (26-32) pg MCHC (32-36) g/dL RDW (11.5-14.0) % Plt Count (150-450) x10^3/uL MPV (7.5-11.0) fL Gran % (36.0-66.0) % Immature Gran % (Auto) (0.00-0.4) % Nucleat RBC Rel Count (0.00-0.1) % Eos # (Auto) (0-0.5) x10^3/uL Immature Gran # (Auto) (0.00-0.03) x10^3u/L Absolute Lymphs (auto) (1.0-4.6) x10^3/uL Absolute Monos (auto) (0.0-1.3) x10^3/uL Absolute Nucleated RBC (0.00-0.01) x10^3u/L Lymphocytes % (24.0-44.0) % Monocytes % (0.0-12.0) % Eosinophils % (0.00-5.0) % Basophils % (0.0-0.4) % Absolute Granulocytes (1.4-6.9) x10^3/uL Basophils # (0-0.4) x10^3/uL Puncture Site pCO2 (35-45) mmHg pO2 (75-100) mmHg Base Excess (-2.0-2.0) O2 Saturation (94-100) g/dF ABG pH (7.35-7.45) ABG HCO3 (22-28) ABG O2 Sat (Measured) (95-100) % Eleuterio Test A-a Gradient a/A Ratio Hemoglobin Carboxyhemoglobin (0.0-6.9) % THgb Methemoglobin (1.4-1.5) % Potassium (3.5-5.1) Temperature C POC O2 Flow Rate % Sodium (135-145) mmol/L Chloride (98-107) mmol/L Carbon Dioxide (22-30) mmol/L Anion Gap (5-15) MEQ/L BUN (7-17) mg/dL Creatinine (0.52-1.04) mg/dL Estimated GFR ML/MIN Glucose (74-106) mg/dL POC Glucometer (74 to 106) mg/dL Lactic Acid (0.4-2.0) Calcium (8.4-10.2) mg/dL Magnesium (1.6-2.3) mg/dL Total Bilirubin (0.2-1.3) mg/dL AST (14-36) U/L ALT (0-35) U/L Alkaline Phosphatase (38-126) U/L Troponin I 0.022 (0.000-0.034) ng/mL NT-Pro-B Natriuret Pep (<300) pg/mL Serum Total Protein (6.3-8.2) g/dL Albumin (3.5-5.0) g/dL Urine Color Yellow (Yellow) Urine Appearance Clear (Clear) Urine pH 5.5 (4.6-8.0) Ur Specific Greene 1.020 (1.005-1.030) Urine Protein Negative (Negative) Urine Glucose (UA) >=1000 A (Negative) mg/dL Urine Ketones Negative (Negative) Urine Blood Negative (Negative) Urine Nitrite Negative (Negative) Urine Bilirubin Negative (Negative) Urine Urobilinogen 0.2 (0.2) mg/dL Ur Leukocyte Esterase Negative (Negative) U Hyaline Cast (Auto) NONE SEEN (0-2) /LPF Urine Microscopic RBC 0-2 (0-5) /HPF Urine Microscopic WBC 21-50 A (0-5) /HPF Ur Epithelial Cells None Seen (None Seen) /HPF Urine Bacteria Many A (None Seen) /HPF Urine Culture Reflexed YES (NO) Influenza Type A Ag NEGATIVE (NEGATIVE) Influenza Type B Ag NEGATIVE (NEGATIVE) RSV (PCR) NEGATIVE (NEGATIVE) SARS-CoV-2 (PCR) NEGATIVE (NEGATIVE) 04/23/23 04/23/23 Range/Units 19:00 20:38 WBC (4.0-10.5) x10^3/uL RBC (4.1-5.4) x10^6/uL Hgb (12.0-16.0) g/dL Hct (35-47) % MCV (78-100) fL MCH (26-32) pg MCHC (32-36) g/dL RDW (11.5-14.0) % Plt Count (150-450) x10^3/uL MPV (7.5-11.0) fL Gran % (36.0-66.0) % Immature Gran % (Auto) (0.00-0.4) % Nucleat RBC Rel Count (0.00-0.1) % Eos # (Auto) (0-0.5) x10^3/uL Immature Gran # (Auto) (0.00-0.03) x10^3u/L Absolute Lymphs (auto) (1.0-4.6) x10^3/uL Absolute Monos (auto) (0.0-1.3) x10^3/uL Absolute Nucleated RBC (0.00-0.01) x10^3u/L Lymphocytes % (24.0-44.0) % Monocytes % (0.0-12.0) % Eosinophils % (0.00-5.0) % Basophils % (0.0-0.4) % Absolute Granulocytes (1.4-6.9) x10^3/uL Basophils # (0-0.4) x10^3/uL Puncture Site pCO2 (35-45) mmHg pO2 (75-100) mmHg Base Excess (-2.0-2.0) O2 Saturation (94-100) g/dF ABG pH (7.35-7.45) ABG HCO3 (22-28) ABG O2 Sat (Measured) (95-100) % Eleuterio Test A-a Gradient a/A Ratio Hemoglobin Carboxyhemoglobin (0.0-6.9) % THgb Methemoglobin (1.4-1.5) % Potassium (3.5-5.1) Temperature C POC O2 Flow Rate % Sodium (135-145) mmol/L Chloride (98-107) mmol/L Carbon Dioxide (22-30) mmol/L Anion Gap (5-15) MEQ/L BUN (7-17) mg/dL Creatinine (0.52-1.04) mg/dL Estimated GFR ML/MIN Glucose (74-106) mg/dL POC Glucometer 166 H (74 to 106) mg/dL Lactic Acid (0.4-2.0) Calcium (8.4-10.2) mg/dL Magnesium (1.6-2.3) mg/dL Total Bilirubin (0.2-1.3) mg/dL AST (14-36) U/L ALT (0-35) U/L Alkaline Phosphatase (38-126) U/L Troponin I 0.021 (0.000-0.034) ng/mL NT-Pro-B Natriuret Pep (<300) pg/mL Serum Total Protein (6.3-8.2) g/dL Albumin (3.5-5.0) g/dL Urine Color (Yellow) Urine Appearance (Clear) Urine pH (4.6-8.0) Ur Specific Greene (1.005-1.030) Urine Protein (Negative) Urine Glucose (UA) (Negative) mg/dL Urine Ketones (Negative) Urine Blood (Negative) Urine Nitrite (Negative) Urine Bilirubin (Negative) Urine Urobilinogen (0.2) mg/dL Ur Leukocyte Esterase (Negative) U Hyaline Cast (Auto) (0-2) /LPF Urine Microscopic RBC (0-5) /HPF Urine Microscopic WBC (0-5) /HPF Ur Epithelial Cells (None Seen) /HPF Urine Bacteria (None Seen) /HPF Urine Culture Reflexed (NO) Influenza Type A Ag (NEGATIVE) Influenza Type B Ag (NEGATIVE) RSV (PCR) (NEGATIVE) SARS-CoV-2 (PCR) (NEGATIVE) - Radiology Impressions Radiology Exams & Impressions: Radiology Procedures Category Date Time Status CHEST WITHOUT CONTRAST [CT] Stat Exams 04/23/23 21:27 Ordered - Other Procedures and Tests Respiratory Therapy 04/23/23 18:10 Oxygen Nasal Cannula 3 lpm Respiratory Therapy Consult ONCE 04/23/23 20:10 Respiratory Therapy Assessment DAILY Assessment/Plan (1) COPD (chronic obstructive pulmonary disease) Current Visit: Yes Status: Acute Qualifiers: COPD type: COPD with acute exacerbation Qualified Code(s): J44.1 - Chronic obstructive pulmonary disease with (acute) exacerbation Assessment & Plan: ANTIBIOTICS AND STEROIDS Levaquin Solumedrol ASSESSMENT 1. Acute COPD Exacerbation 2. Acute on Chronic Kidney Disease 3. Elevated Lactate 4. Non-ST Elevation Myocardial Infarction, Type II 5. Hypertension 6. Chart Diagnosis of CHF PLAN 1. Wean oxygen to maintain SaO2 > 90%; on 2L (home level) 2. IV steroids + duonebs 3. Empiric Levaquin; Viral panel negative 4. CT chest tonight 5. Gentle fluids; Cr above baseline of 1.2-1.5 6. Recommend echo in AM; do not believe she is having ACS with mild troponin elevation 7. Hold lasix and empagliflozin SQ Heparin The entirety of this encounter was done via telemedicine Kurt Coy MD Pulmonary and Critical Care Medicine Telemedicine Encounter - Telemedicine Encounter Telemedicine Encounter: The entirety of this encounter was performed via Telemedicine"
[2023-04-23] MEDS ORDERED: NORCO 5/325 MG PO PRN (21:44)
[2023-04-23] MEDS ORDERED: Lactated Ringers 1,000 ML IV SCH (22:00)
[2023-04-23] MEDS ORDERED: solu-MEDROL ONE (22:19)
[2023-04-23] MEDS ORDERED: Sterile H2O 10 ml IJ ONE (22:20)
[2023-04-23] MEDS: LEVOFLOXACIN 750MG/150ML D5W 750 MG/150 ML BAG IV STA (23:14)
[2023-04-23] MEDS: Lactated Ringers 1,000 ML IV SCH (23:14)
[2023-04-23] MEDS: solu-MEDROL 40 MG, Sterile H2O 10 ml 1 ML IV SCH (23:14)
[2023-04-23] MEDS: HEPARIN 5000 UNITS/0.5 ML (HIGH RISK MED) SQ SCH (23:15)
[2023-04-23] MEDS: FEOSOL 325 MG PO SCH (23:15)
--- NOTE | 2023-04-24 00:22 | XRAY ---
CLINICAL HISTORY: COPD TECHNIQUE: Contiguous axial CT images of the chest were acquired without intravenous contrast. Coronal and sagittal reconstructions were obtained and submitted for diagnostic interpretation. COMPARISON: 02/14/2023. FINDINGS: The scanned pulmonary parenchyma shows no definite consolidative lesions. Few atelectatic bands were seen in both lungs. Stable 5 mm soft tissue density nodule in superior segment of right lower lobe. Stable 4.6mm calcified nodule seen in left upper lobe likely benign. No free or encysted pleural effusion. Heart size is normal, and there is no pericardial effusion. Mild coronary artery calcification. No pathologically enlarged mediastinal, hilar or axillary lymph node was identified. There is no definite mass lesion in the chest wall. A few prominent lymph nodes were seen in the right supraclavicular region. A 4.7 x 4.5cm cyst is seen in the upper pole of the right kidney. Atrophic left kidney. Status post cholecystectomy. The rest of the scanned upper abdomen is unremarkable. Moderate degenerative changes are seen in the visualized spine. IMPRESSION: 1. No significant acute abnormality seen in CT scan chest with no interval changes. 2. Few atelectatic bands in both lungs. 3. Stable 5 mm soft tissue density nodule in superior segment of right lower lobe, low risk as per Fleischner Society guidelines. 4. Stable 4.6mm calcified nodule in left upper lobe likely benign. Electronically Signed by: Luis Alberto Hinojosa MD. (04/24/2023 00:17:26 EST)
[2023-04-24 04:55] LABS: Absolute Neutrophil Ct (ANC) 13.58 x10^3/uL (1.4-6.9); BASOPHIL % 0.3 % (0.0-0.4); Basophil (Absolute #) 0.04 x10^3/uL (0-0.4); Eosinophil % 0.1 % (0.00-5.0); Eosinophil (Absolute #) 0.01 x10^3/uL (0-0.5); Hematocrit 34.2 % (35-47); Hemoglobin 10.5 g/dL (12.0-16.0); IMMATURE GRAN # 0.14 x10^3u/L (0.00-0.03); Lymphocyte (Absolute #) 0.36 x10^3/uL (1.0-4.6); Lymphocytes % 2.5 % (24.0-44.0); Mean Cell Volume 97.7 fL (78-100); Mean Corpuscular Hgb Concent. 30.7 g/dL (32-36); Monocyte (Absolute #) 0.18 x10^3/uL (0.0-1.3); Monocytes % 1.3 % (0.0-12.0); Neutrophil % 94.8 % (36.0-66.0); Platelet Count 189 x10^3/uL (150-450); Red Cell Distribution Width 14.1 % (11.5-14.0); White Blood Count 14.3 x10^3/uL (4.0-10.5)
--- NOTE | 2023-04-24 05:12 | PCM.NOTE ---
Date and Time: 04/24/23 0504 Subjective Assessment: Ms. Bragg is an 82 year old female with a pmhx of COPD (baseline 2L oxygen), CHF, HTN, GERD, and anxiety who presented to ED 04/23/23 with complaints of a three day history of progressive worsening shortness of breath, productive cough with green sputum, and wheezing. Patient was seen OP, CXR with non-acute findings. Patient received rocephin/steroid injection at that time. Upon arrival to ED patient was hypoxic on RA with spo2 in the mid 80s, recovering to 94% when placed on 3L. Lab findings remarkable for leukocytosis, mild BRANDEN. Patient admitted with COPD with exacerbation and BRANDEN. Plan to treat withl levaquin/solumedrol. 04/24/23: Met with patient bedside. Endorses shortness of breath, dry cough, and wheezing. Lung auscultation with noted ins/exp wheezing/crackles bilaterally. She is at her baseline oxygen of 2L and reports improvement in dyspnea. She reports right upper arm pain that she has had following a fall at home last week. Xray findings showing possible rotator cuff tear. Will have PT work with her, RICE, consider MRI/ortho consult as OP if no improvement. - Review of Systems Constitutional: No Symptoms Eyes: No Symptoms Ears, Nose, & Throat: No Symptoms Respiratory: Cough, Short Of Breath Cardiac: No Symptoms Abdominal/Gastrointestinal: No Symptoms Genitourinary Symptoms: No Symptoms Musculoskeletal: Joint Pain (right upper ext/shoulder) Skin: No Symptoms Neurological: No Symptoms Psychological: No Symptoms Endocrine: No Symptoms Hematologic/Lymphatic: No Symptoms Immunological/Allergic: No Symptoms Objective Exam General Appearance: no apparent distress Neurologic Exam: alert, 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, cooperative Skin Exam: normal color Eye Exam: PERRL Ears, Nose, Throat Exam: normal ENT inspection Neck Exam: normal inspection Respiratory Exam: diminished breath sounds, crackles/rales, wheezing Cardiovascular Exam: regular rate/rhythm, normal heart sounds Gastrointestinal/Abdomen Exam: soft, normal bowel sounds Extremity Exam: normal inspection, limited range of motion (right upper ext) Back Exam: normal inspection Pelvic Exam: deferred Objective Data Vital Signs: Vital Signs - 24 hr Temp Pulse Resp BP BP Pulse Ox 04/24/23 03:47 98.5 F 105 H 21 113/63 97 04/24/23 02:06 90 16 99 04/24/23 00:00 97.7 F 95 H 24 108/54 97 04/23/23 23:14 86 18 97 04/23/23 20:10 82 15 93 L 04/23/23 19:45 98.1 F 60 24 136/58 99 04/23/23 18:17 98.1 F 60 24 136/58 99 04/23/23 18:10 99 04/23/23 17:56 72 18 101/55 04/23/23 17:09 90 L 04/23/23 17:00 70 15 86/57 100 04/23/23 16:35 72 22 111/82 04/23/23 16:30 78 17 81/70 98 04/23/23 16:01 83 17 106/51 96 04/23/23 15:30 76 23 134/51 99 04/23/23 15:00 67 17 112/67 04/23/23 14:45 70 16 122/70 98 04/23/23 14:02 71 22 99 04/23/23 14:00 81 16 125/82 04/23/23 13:47 96.6 F 73 24 118/73 90 L Pain Assessment - Last Documented Pain Intensity 0 Intake and Output: Intake & Output 04/21/23 04/22/23 04/23/23 04/24/23 11:59 11:59 11:59 11:59 Intake Total 1257 Balance 1257 Weight 114.6 kg Lab Results: Lab Results-Last 24 Hours 04/23/23 04/23/23 04/23/23 Range/Units 14:05 14:46 14:46 WBC 15.5 H (4.0-10.5) x10^3/uL RBC 3.62 L (4.1-5.4) x10^6/uL Hgb 11.3 L (12.0-16.0) g/dL Hct 35.0 (35-47) % MCV 96.7 (78-100) fL MCH 31.2 (26-32) pg MCHC 32.3 (32-36) g/dL RDW 14.1 H (11.5-14.0) % Plt Count 210 (150-450) x10^3/uL MPV 11.1 H (7.5-11.0) fL Gran % 78.0 H (36.0-66.0) % Immature Gran % (Auto) 1.2 H (0.00-0.4) % Nucleat RBC Rel Count 0.0 (0.00-0.1) % Eos # (Auto) 0.36 (0-0.5) x10^3/uL Immature Gran # (Auto) 0.18 H (0.00-0.03) x10^3u/L Absolute Lymphs (auto) 1.57 (1.0-4.6) x10^3/uL Absolute Monos (auto) 1.23 (0.0-1.3) x10^3/uL Absolute Nucleated RBC 0.00 (0.00-0.01) x10^3u/L Lymphocytes % 10.1 L (24.0-44.0) % Monocytes % 7.9 (0.0-12.0) % Eosinophils % 2.3 (0.00-5.0) % Basophils % 0.5 (0.0-0.4) % Absolute Granulocytes 12.07 H (1.4-6.9) x10^3/uL Basophils # 0.07 (0-0.4) x10^3/uL Puncture Site N/A pCO2 55 H (35-45) mmHg pO2 38 L* (75-100) mmHg Base Excess 5.3 H (-2.0-2.0) O2 Saturation 46.4 L (94-100) g/dF ABG pH 7.37 (7.35-7.45) ABG HCO3 31.8 H* (22-28) ABG O2 Sat (Measured) 49.0 L (95-100) % Leeuterio Test n/a A-a Gradient 93 a/A Ratio 0.29 Hemoglobin 11.4 Carboxyhemoglobin 4.6 (0.0-6.9) % THgb Methemoglobin 0.8 L (1.4-1.5) % Potassium 3.2 L 3.6 (3.5-5.1) Temperature 37.0 C POC O2 Flow Rate 28 % Sodium 141 (135-145) mmol/L Chloride 103 (98-107) mmol/L Carbon Dioxide 27 (22-30) mmol/L Anion Gap 14.1 (5-15) MEQ/L BUN 37 H (7-17) mg/dL Creatinine 1.76 H (0.52-1.04) mg/dL Estimated GFR 28.7 ML/MIN Glucose 163 H (74-106) mg/dL POC Glucometer (74 to 106) mg/dL Lactic Acid 2.1 H (0.4-2.0) Calcium 8.8 (8.4-10.2) mg/dL Magnesium 2.0 (1.6-2.3) mg/dL Total Bilirubin 0.80 (0.2-1.3) mg/dL AST 17 (14-36) U/L ALT 13 (0-35) U/L Alkaline Phosphatase 64 (38-126) U/L Troponin I (0.000-0.034) ng/mL NT-Pro-B Natriuret Pep 738 (<300) pg/mL Serum Total Protein 6.1 L (6.3-8.2) g/dL Albumin 3.8 (3.5-5.0) g/dL Urine Color (Yellow) Urine Appearance (Clear) Urine pH (4.6-8.0) Ur Specific [place] (1.005-1.030) Urine Protein (Negative) Urine Glucose (UA) (Negative) mg/dL Urine Ketones (Negative) Urine Blood (Negative) Urine Nitrite (Negative) Urine Bilirubin (Negative) Urine Urobilinogen (0.2) mg/dL Ur Leukocyte Esterase (Negative) U Hyaline Cast (Auto) (0-2) /LPF Urine Microscopic RBC (0-5) /HPF Urine Microscopic WBC (0-5) /HPF Ur Epithelial Cells (None Seen) /HPF Urine Bacteria (None Seen) /HPF Urine Culture Reflexed (NO) Influenza Type A Ag (NEGATIVE) Influenza Type B Ag (NEGATIVE) RSV (PCR) (NEGATIVE) SARS-CoV-2 (PCR) (NEGATIVE) 04/23/23 04/23/23 04/23/23 Range/Units 14:46 14:46 16:39 WBC (4.0-10.5) x10^3/uL RBC (4.1-5.4) x10^6/uL Hgb (12.0-16.0) g/dL Hct (35-47) % MCV (78-100) fL MCH (26-32) pg MCHC (32-36) g/dL RDW (11.5-14.0) % Plt Count (150-450) x10^3/uL MPV (7.5-11.0) fL Gran % (36.0-66.0) % Immature Gran % (Auto) (0.00-0.4) % Nucleat RBC Rel Count (0.00-0.1) % Eos # (Auto) (0-0.5) x10^3/uL Immature Gran # (Auto) (0.00-0.03) x10^3u/L Absolute Lymphs (auto) (1.0-4.6) x10^3/uL Absolute Monos (auto) (0.0-1.3) x10^3/uL Absolute Nucleated RBC (0.00-0.01) x10^3u/L Lymphocytes % (24.0-44.0) % Monocytes % (0.0-12.0) % Eosinophils % (0.00-5.0) % Basophils % (0.0-0.4) % Absolute Granulocytes (1.4-6.9) x10^3/uL Basophils # (0-0.4) x10^3/uL Puncture Site pCO2 (35-45) mmHg pO2 (75-100) mmHg Base Excess (-2.0-2.0) O2 Saturation (94-100) g/dF ABG pH (7.35-7.45) ABG HCO3 (22-28) ABG O2 Sat (Measured) (95-100) % Eleuterio Test A-a Gradient a/A Ratio Hemoglobin Carboxyhemoglobin (0.0-6.9) % THgb Methemoglobin (1.4-1.5) % Potassium (3.5-5.1) Temperature C POC O2 Flow Rate % Sodium (135-145) mmol/L Chloride (98-107) mmol/L Carbon Dioxide (22-30) mmol/L Anion Gap (5-15) MEQ/L BUN (7-17) mg/dL Creatinine (0.52-1.04) mg/dL Estimated GFR ML/MIN Glucose (74-106) mg/dL POC Glucometer (74 to 106) mg/dL Lactic Acid 2.5 H (0.4-2.0) Calcium (8.4-10.2) mg/dL Magnesium (1.6-2.3) mg/dL Total Bilirubin (0.2-1.3) mg/dL AST (14-36) U/L ALT (0-35) U/L Alkaline Phosphatase (38-126) U/L Troponin I 0.022 (0.000-0.034) ng/mL NT-Pro-B Natriuret Pep (<300) pg/mL Serum Total Protein (6.3-8.2) g/dL Albumin (3.5-5.0) g/dL Urine Color (Yellow) Urine Appearance (Clear) Urine pH (4.6-8.0) Ur Specific [place] (1.005-1.030) Urine Protein (Negative) Urine Glucose (UA) (Negative) mg/dL Urine Ketones (Negative) Urine Blood (Negative) Urine Nitrite (Negative) Urine Bilirubin (Negative) Urine Urobilinogen (0.2) mg/dL Ur Leukocyte Esterase (Negative) U Hyaline Cast (Auto) (0-2) /LPF Urine Microscopic RBC (0-5) /HPF Urine Microscopic WBC (0-5) /HPF Ur Epithelial Cells (None Seen) /HPF Urine Bacteria (None Seen) /HPF Urine Culture Reflexed (NO) Influenza Type A Ag NEGATIVE (NEGATIVE) Influenza Type B Ag NEGATIVE (NEGATIVE) RSV (PCR) NEGATIVE (NEGATIVE) SARS-CoV-2 (PCR) NEGATIVE (NEGATIVE) 04/23/23 04/23/23 04/23/23 Range/Units 17:34 19:00 20:38 WBC (4.0-10.5) x10^3/uL RBC (4.1-5.4) x10^6/uL Hgb (12.0-16.0) g/dL Hct (35-47) % MCV (78-100) fL MCH (26-32) pg MCHC (32-36) g/dL RDW (11.5-14.0) % Plt Count (150-450) x10^3/uL MPV (7.5-11.0) fL Gran % (36.0-66.0) % Immature Gran % (Auto) (0.00-0.4) % Nucleat RBC Rel Count (0.00-0.1) % Eos # (Auto) (0-0.5) x10^3/uL Immature Gran # (Auto) (0.00-0.03) x10^3u/L Absolute Lymphs (auto) (1.0-4.6) x10^3/uL Absolute Monos (auto) (0.0-1.3) x10^3/uL Absolute Nucleated RBC (0.00-0.01) x10^3u/L Lymphocytes % (24.0-44.0) % Monocytes % (0.0-12.0) % Eosinophils % (0.00-5.0) % Basophils % (0.0-0.4) % Absolute Granulocytes (1.4-6.9) x10^3/uL Basophils # (0-0.4) x10^3/uL Puncture Site pCO2 (35-45) mmHg pO2 (75-100) mmHg Base Excess (-2.0-2.0) O2 Saturation (94-100) g/dF ABG pH (7.35-7.45) ABG HCO3 (22-28) ABG O2 Sat (Measured) (95-100) % Eleuterio Test A-a Gradient a/A Ratio Hemoglobin Carboxyhemoglobin (0.0-6.9) % THgb Methemoglobin (1.4-1.5) % Potassium (3.5-5.1) Temperature C POC O2 Flow Rate % Sodium (135-145) mmol/L Chloride (98-107) mmol/L Carbon Dioxide (22-30) mmol/L Anion Gap (5-15) MEQ/L BUN (7-17) mg/dL Creatinine (0.52-1.04) mg/dL Estimated GFR ML/MIN Glucose (74-106) mg/dL POC Glucometer 166 H (74 to 106) mg/dL Lactic Acid (0.4-2.0) Calcium (8.4-10.2) mg/dL Magnesium (1.6-2.3) mg/dL Total Bilirubin (0.2-1.3) mg/dL AST (14-36) U/L ALT (0-35) U/L Alkaline Phosphatase (38-126) U/L Troponin I 0.021 (0.000-0.034) ng/mL NT-Pro-B Natriuret Pep (<300) pg/mL Serum Total Protein (6.3-8.2) g/dL Albumin (3.5-5.0) g/dL Urine Color Yellow (Yellow) Urine Appearance Clear (Clear) Urine pH 5.5 (4.6-8.0) Ur Specific [place] 1.020 (1.005-1.030) Urine Protein Negative (Negative) Urine Glucose (UA) >=1000 A (Negative) mg/dL Urine Ketones Negative (Negative) Urine Blood Negative (Negative) Urine Nitrite Negative (Negative) Urine Bilirubin Negative (Negative) Urine Urobilinogen 0.2 (0.2) mg/dL Ur Leukocyte Esterase Negative (Negative) U Hyaline Cast (Auto) NONE SEEN (0-2) /LPF Urine Microscopic RBC 0-2 (0-5) /HPF Urine Microscopic WBC 21-50 A (0-5) /HPF Ur Epithelial Cells None Seen (None Seen) /HPF Urine Bacteria Many A (None Seen) /HPF Urine Culture Reflexed YES (NO) Influenza Type A Ag (NEGATIVE) Influenza Type B Ag (NEGATIVE) RSV (PCR) (NEGATIVE) SARS-CoV-2 (PCR) (NEGATIVE) 04/23/23 04/24/23 Range/Units 22:08 04:15 WBC 14.3 H (4.0-10.5) x10^3/uL RBC 3.50 L (4.1-5.4) x10^6/uL Hgb 10.5 L (12.0-16.0) g/dL Hct 34.2 L (35-47) % MCV 97.7 (78-100) fL MCH 30.0 (26-32) pg MCHC 30.7 L (32-36) g/dL RDW 14.1 H (11.5-14.0) % Plt Count 189 (150-450) x10^3/uL MPV 11.0 (7.5-11.0) fL Gran % 94.8 H (36.0-66.0) % Immature Gran % (Auto) 1.0 H (0.00-0.4) % Nucleat RBC Rel Count 0.0 (0.00-0.1) % Eos # (Auto) 0.01 (0-0.5) x10^3/uL Immature Gran # (Auto) 0.14 H (0.00-0.03) x10^3u/L Absolute Lymphs (auto) 0.36 L (1.0-4.6) x10^3/uL Absolute Monos (auto) 0.18 (0.0-1.3) x10^3/uL Absolute Nucleated RBC 0.00 (0.00-0.01) x10^3u/L Lymphocytes % 2.5 L (24.0-44.0) % Monocytes % 1.3 (0.0-12.0) % Eosinophils % 0.1 (0.00-5.0) % Basophils % 0.3 (0.0-0.4) % Absolute Granulocytes 13.58 H (1.4-6.9) x10^3/uL Basophils # 0.04 (0-0.4) x10^3/uL Puncture Site pCO2 (35-45) mmHg pO2 (75-100) mmHg Base Excess (-2.0-2.0) O2 Saturation (94-100) g/dF ABG pH (7.35-7.45) ABG HCO3 (22-28) ABG O2 Sat (Measured) (95-100) % Eleuterio Test A-a Gradient a/A Ratio Hemoglobin Carboxyhemoglobin (0.0-6.9) % THgb Methemoglobin (1.4-1.5) % Potassium (3.5-5.1) Temperature C POC O2 Flow Rate % Sodium (135-145) mmol/L Chloride (98-107) mmol/L Carbon Dioxide (22-30) mmol/L Anion Gap (5-15) MEQ/L BUN (7-17) mg/dL Creatinine (0.52-1.04) mg/dL Estimated GFR ML/MIN Glucose (74-106) mg/dL POC Glucometer (74 to 106) mg/dL Lactic Acid (0.4-2.0) Calcium (8.4-10.2) mg/dL Magnesium (1.6-2.3) mg/dL Total Bilirubin (0.2-1.3) mg/dL AST (14-36) U/L ALT (0-35) U/L Alkaline Phosphatase (38-126) U/L Troponin I 0.023 (0.000-0.034) ng/mL NT-Pro-B Natriuret Pep (<300) pg/mL Serum Total Protein (6.3-8.2) g/dL Albumin (3.5-5.0) g/dL Urine Color (Yellow) Urine Appearance (Clear) Urine pH (4.6-8.0) Ur Specific [place] (1.005-1.030) Urine Protein (Negative) Urine Glucose (UA) (Negative) mg/dL Urine Ketones (Negative) Urine Blood (Negative) Urine Nitrite (Negative) Urine Bilirubin (Negative) Urine Urobilinogen (0.2) mg/dL Ur Leukocyte Esterase (Negative) U Hyaline Cast (Auto) (0-2) /LPF Urine Microscopic RBC (0-5) /HPF Urine Microscopic WBC (0-5) /HPF Ur Epithelial Cells (None Seen) /HPF Urine Bacteria (None Seen) /HPF Urine Culture Reflexed (NO) Influenza Type A Ag (NEGATIVE) Influenza Type B Ag (NEGATIVE) RSV (PCR) (NEGATIVE) SARS-CoV-2 (PCR) (NEGATIVE) Radiology Exams: Radiology Procedures Category Date Time Status CHEST WITHOUT CONTRAST [CT] Stat Exams 04/23/23 23:32 Completed Assessment/Plan (1) Sepsis Current Visit: Yes Status: Acute Assessment & Plan: -CT with no acute abnormality -UA negative -Lactic acid trend 2.5>2.1, IVF at 75ml/hr due to CHF -Resp ramirez negative -Levaquin started -WBC improving 14.3<15.5 (2) Acute respiratory failure with hypoxia Current Visit: Yes Status: Acute Assessment & Plan: 2/2 to COPD exacerbation -steroids/duonebs/INH -RT consult -Titrate oxygen for goal spo2 88-92 %, baseline 2L Code(s): J96.01 - ACUTE RESPIRATORY FAILURE WITH HYPOXIA (3) COPD exacerbation Current Visit: Yes Status: Acute Assessment & Plan: -Supplemental oxygen with spo2 goal 88-92% -Follows with Dr. Rivera -RT eval -nebs/inh prn -Solumedrol -Resp panel negative -Levaquin -Mucinex Code(s): J44.1 - CHRONIC OBSTRUCTIVE PULMONARY DISEASE W (ACUTE) EXACERBATION (4) CHF (congestive heart failure) Current Visit: Yes Status: Acute Assessment & Plan: -Euvolemic -Monitor for fluid overload -BNP 738 -CXR with no acute cardiopulmonary process -Hold lasix Code(s): I50.9 - HEART FAILURE, UNSPECIFIED (5) Acute on chronic kidney failure Current Visit: Yes Status: Acute Assessment & Plan: -Creat at 1.76, baseline around 1.3 -Gentle hydration -Hold HCTZ -Follows with [facility]-nephrology -Avoid JONA/ARBs/NSAIDS - hold lasix / Jardiance VTE: heparin PPI: Protonix Dispo: home 1-2 days Code(s): N17.9 - ACUTE KIDNEY FAILURE, UNSPECIFIED; N18.9 - CHRONIC KIDNEY DISEASE, UNSPECIFIED (6) Hypokalemia Current Visit: Yes Status: Acute Assessment & Plan: -labs reviewed, potassium at 3.0, replenished with 20meq IV potassium, continue to monitor, replace per protocol -Monitor renal/lytes daily -tele Code(s): E87.6 - HYPOKALEMIA (7) Right upper limb pain Current Visit: Yes Status: Acute Assessment & Plan: -xray demonstrates osteopenia and 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 Also new high riding humeral head commonly seen with rotator cuff tear. -RICE -PT -Consider ortho consult/MRI as OP if no improvement Code(s): M79.601 - PAIN IN RIGHT ARM
[2023-04-24 05:18] LABS: ALBUMIN 3.8 g/dL (3.5-5.0); BILIRUBIN,TOTAL 0.4 mg/dL (0.2-1.3); Calcium 8.4 mg/dL (8.4-10.2); Creatinine 1 1.78 mg/dL (0.52-1.04); EST GLOMERULAR FILTRATION RATE 28.3 ML/MIN; Total Protein 6.3 g/dL (6.3-8.2)
[2023-04-24 06:14] LABS: Slide Review 1 YES
[2023-04-24] MEDS ORDERED: solu-MEDROL ONE (06:58)
[2023-04-24] MEDS ORDERED: Sterile H2O 10 ml IJ ONE (06:58)
[2023-04-24] MEDS ORDERED: XANAX 1 MG PO PRN (07:41)
[2023-04-24] MEDS: POTASSIUM CHLORIDE 20 mEq IN WATER 100ML 20 MEQ/100 ML BAG IV ONE (07:55)
[2023-04-24] MEDS: Klor Con PO ONE (07:55)
--- NOTE | 2023-04-24 09:08 | XRAY ---
Indication: Pain following fall one week ago. Comparison: June 22, 2013 2 portable views right humerus now demonstrates osteopenia and 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 Also new high riding humeral head commonly seen with rotator cuff tear. No other bony, articular, or soft tissue abnormalities.
[2023-04-24] MEDS ORDERED: NON-FORMULARY ITEM (Losartan/Hydrochlorothiazide [Losartan-Hctz 100-25 Mg Tab] 1 EACH Tabl PO SCH (10:00)
[2023-04-24] MEDS: PROTONIX 40 MG IV IV SCH (10:33)
[2023-04-24] MEDS: Toprol-Xl 25MG Tablets PO SCH (10:33)
[2023-04-24] MEDS: hydroDIURIL 25 MG PO SCH (10:33)
[2023-04-24] MEDS: Cozaar 50 MG PO SCH (10:34)
[2023-04-24] MEDS: ZOLOFT 50 MG TABLET PO SCH (10:34)
[2023-04-24] MEDS: ECOTRIN 81 MG PO SCH (10:34)
[2023-04-24] MEDS: Aricept 10 MG PO SCH (10:40)
[2023-04-24] MEDS: HUMALOG SQ PRN (11:19)
[2023-04-24] MEDS: HUMALOG SQ SCH (17:17)
[2023-04-24] MEDS: Advair Hfa 115/21 Common canister IH SCH (19:26)
[2023-04-24] MEDS: Levofloxacin 250MG Tablet PO SCH (21:04)
[2023-04-24] MEDS ORDERED: Lantus Insulin SQ SCH (22:00)
--- NOTE | 2023-04-25 05:07 | PCM.NOTE ---
Date and Time: 04/25/23 050 Subjective Assessment: Ms. Bragg is an 82 year old female with a pmhx of COPD (baseline 2L oxygen), CHF, HTN, GERD, and anxiety who presented to ED 04/23/23 with complaints of a three day history of progressive worsening shortness of breath, productive cough with green sputum, and wheezing. Patient was seen OP, CXR with non-acute findings. Patient received rocephin/steroid injection at that time. Upon arrival to ED patient was hypoxic on RA with spo2 in the mid 80s, recovering to 94% when placed on 3L. Lab findings remarkable for leukocytosis, mild BRANDEN. Patient admitted with COPD with exacerbation and BRANDEN. Plan to treat withl levaquin/solumedrol. 04/24: Met with patient bedside. No overnight events noted. Endorses dyspnea is improved; cough more productive with yellow sputum. At baseline oxygen of 2L. Lung sounds with noted exp wheezing and fine crackles bilaterally - improved. Discussed lab work showing worsening kidney function. She does see Dr. Bird OP for kidney disease. Plan for continued treatment with abx/steroid/nebs gentle hydration for kidney function. Holding losartan for now. Denies fever cp, abdom inal pain, RAYMUNDO, dizziness, N/V/D. - Review of Systems Constitutional: No Symptoms Eyes: No Symptoms Ears, Nose, & Throat: No Symptoms Respiratory: Cough, Short Of Breath Cardiac: No Symptoms Abdominal/Gastrointestinal: No Symptoms Genitourinary Symptoms: No Symptoms Musculoskeletal: No Symptoms Neurological: No Symptoms Psychological: No Symptoms Endocrine: No Symptoms Hematologic/Lymphatic: No Symptoms Immunological/Allergic: No Symptoms Objective Exam General Appearance: no apparent distress Neurologic Exam: alert, 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, cooperative Skin Exam: normal color Eye Exam: PERRL Ears, Nose, Throat Exam: normal ENT inspection Neck Exam: normal inspection Respiratory Exam: diminished breath sounds, crackles/rales, wheezing Cardiovascular Exam: regular rate/rhythm, normal heart sounds Gastrointestinal/Abdomen Exam: soft, normal bowel sounds Extremity Exam: normal inspection Back Exam: normal inspection Pelvic Exam: deferred Rectal Exam: deferred Objective Data Vital Signs: Vital Signs - 24 hr Temp Pulse Resp BP Pulse Ox 04/25/23 04:00 96.9 F 100 H 27 H 139/59 93 L 04/25/23 03:50 89 24 96 04/25/23 00:12 99 H 26 H 99 04/24/23 23:09 97.0 F 97 H 15 133/72 94 L 04/24/23 20:00 97.1 F 100 H 22 125/58 93 L 04/24/23 19:28 96 H 26 H 91 L 04/24/23 16:00 96.4 F 107 H 16 122/78 93 L 04/24/23 12:00 96.3 F 106 H 15 110/63 95 04/24/23 11:33 96 H 20 93 L 04/24/23 07:41 95 H 20 92 L 04/24/23 06:58 98.2 F 102 H 24 106/55 96 Pain Assessment - Last Documented Pain Intensity 0 Intake and Output: Intake & Output 04/22/23 04/23/23 04/24/23 04/25/23 11:59 11:59 11:59 11:59 Intake Total 1837 2320 Output Total 450 Balance 1387 2320 Weight 114.6 kg Lab Results: Lab Results-Last 24 Hours 04/24/23 04/24/23 04/24/23 Range/Units 04:15 04:15 04:15 Sodium 138 (135-145) mmol/L Potassium 3.0 L* (3.5-5.1) mmol/L Chloride 103 (98-107) mmol/L Carbon Dioxide 23 (22-30) mmol/L Anion Gap 16.0 H (5-15) MEQ/L BUN 37 H (7-17) mg/dL Creatinine 1.78 H (0.52-1.04) mg/dL Estimated GFR 28.3 ML/MIN Glucose 266 H (74-106) mg/dL POC Glucometer (74 to 106) mg/dL Hemoglobin A1c (4.5-6.0) % Lactic Acid (0.4-2.0) Calcium 8.4 (8.4-10.2) mg/dL Magnesium 1.9 (1.6-2.3) mg/dL Total Bilirubin 0.40 (0.2-1.3) mg/dL AST 15 (14-36) U/L ALT 14 (0-35) U/L Alkaline Phosphatase 59 (38-126) U/L Serum Total Protein 6.3 (6.3-8.2) g/dL Albumin 3.8 (3.5-5.0) g/dL Slides for Path Review YES 04/24/23 04/24/23 04/24/23 Range/Units 04:15 06:50 07:48 Sodium (135-145) mmol/L Potassium (3.5-5.1) mmol/L Chloride (98-107) mmol/L Carbon Dioxide (22-30) mmol/L Anion Gap (5-15) MEQ/L BUN (7-17) mg/dL Creatinine (0.52-1.04) mg/dL Estimated GFR ML/MIN Glucose (74-106) mg/dL POC Glucometer 282 H (74 to 106) mg/dL Hemoglobin A1c 7.14 H (4.5-6.0) % Lactic Acid 3.2 H (0.4-2.0) Calcium (8.4-10.2) mg/dL Magnesium (1.6-2.3) mg/dL Total Bilirubin (0.2-1.3) mg/dL AST (14-36) U/L ALT (0-35) U/L Alkaline Phosphatase (38-126) U/L Serum Total Protein (6.3-8.2) g/dL Albumin (3.5-5.0) g/dL Slides for Path Review 04/24/23 04/24/23 04/24/23 Range/Units 11:11 12:45 15:56 Sodium (135-145) mmol/L Potassium 3.5 (3.5-5.1) mmol/L Chloride (98-107) mmol/L Carbon Dioxide (22-30) mmol/L Anion Gap (5-15) MEQ/L BUN (7-17) mg/dL Creatinine (0.52-1.04) mg/dL Estimated GFR ML/MIN Glucose (74-106) mg/dL POC Glucometer 380 H 389 H (74 to 106) mg/dL Hemoglobin A1c (4.5-6.0) % Lactic Acid (0.4-2.0) Calcium (8.4-10.2) mg/dL Magnesium (1.6-2.3) mg/dL Total Bilirubin (0.2-1.3) mg/dL AST (14-36) U/L ALT (0-35) U/L Alkaline Phosphatase (38-126) U/L Serum Total Protein (6.3-8.2) g/dL Albumin (3.5-5.0) g/dL Slides for Path Review 04/24/23 Range/Units 20:46 Sodium (135-145) mmol/L Potassium (3.5-5.1) mmol/L Chloride (98-107) mmol/L Carbon Dioxide (22-30) mmol/L Anion Gap (5-15) MEQ/L BUN (7-17) mg/dL Creatinine (0.52-1.04) mg/dL Estimated GFR ML/MIN Glucose (74-106) mg/dL POC Glucometer 273 H (74 to 106) mg/dL Hemoglobin A1c (4.5-6.0) % Lactic Acid (0.4-2.0) Calcium (8.4-10.2) mg/dL Magnesium (1.6-2.3) mg/dL Total Bilirubin (0.2-1.3) mg/dL AST (14-36) U/L ALT (0-35) U/L Alkaline Phosphatase (38-126) U/L Serum Total Protein (6.3-8.2) g/dL Albumin (3.5-5.0) g/dL Slides for Path Review Radiology Exams: Radiology Procedures Category Date Time Status CHEST WITHOUT CONTRAST [CT] Stat Exams 04/23/23 23:32 Completed HUMERUS Stat Exams 04/24/23 08:10 Completed Multi-Disciplinary Progress Notes: Multi-Disciplinary Progress Notes 04/24/23 11:01 Case Management Note by Kiersten Cates PATIENT REPORTS DR. TOBAR JUST STARTED HER ON A MEDICATION FOR DIABETES. S/W [facility]ON AT [facility]- PATIENT HAS NEW ORDER FOR OZEMPIC Initialized on 04/24/23 11:01 - END OF NOTE Assessment/Plan (1) Sepsis Current Visit: Yes Status: Acute Assessment & Plan: -CT with no acute abnormality -UA negative -Lactic acid trend 2.5>2.1, IVF at 75ml/hr due to CHF -Resp ramirez negative -Levaquin started -WBC improving 14.3<15.5 04/24: -WBC uptrending, most likely from steroid, procal ordered (2) Acute respiratory failure with hypoxia Current Visit: Yes Status: Acute Assessment & Plan: 2/2 to COPD exacerbation -steroids/duonebs/INH -RT consult -Titrate oxygen for goal spo2 88-92 %, baseline 2L 3/9: -at baseline oxygen 2L -continue solumedrol/duoNebs/INH Code(s): J96.01 - ACUTE RESPIRATORY FAILURE WITH HYPOXIA (3) COPD exacerbation Current Visit: Yes Status: Acute Assessment & Plan: -Supplemental oxygen with spo2 goal 88-92% -Follows with Dr. Rivera -RT eval -nebs/inh prn -Solumedrol -Resp panel negative -Levaquin -Mucinex 04/24: -Improving, now at baseline oxygen, cough more productive with mucinex -Continue abx/steroid/duonebs/InH -Taper solumedrol with clinical response Code(s): J44.1 - CHRONIC OBSTRUCTIVE PULMONARY DISEASE W (ACUTE) EXACERBATION (4) CHF (congestive heart failure) Current Visit: Yes Status: Acute Assessment & Plan: -Euvolemic -Monitor for fluid overload -BNP 738 -CXR with no acute cardiopulmonary process -Hold lasix Code(s): I50.9 - HEART FAILURE, UNSPECIFIED (5) Acute on chronic kidney failure Current Visit: Yes Status: Acute Assessment & Plan: -Creat at 1.76, baseline around 1.3 -Gentle hydration -Hold HCTZ -Follows with [facility]-nephrology -Avoid JONA/ARBs/NSAIDS - hold lasix / Jardiance 04/24: -IVF -monitor for fluid overload -Hold losartan/jardiance/lasix for now VTE: heparin PPI: Protonix Dispo: home 1-2 days Code(s): N17.9 - ACUTE KIDNEY FAILURE, UNSPECIFIED; N18.9 - CHRONIC KIDNEY DISEASE, UNSPECIFIED (6) Hypokalemia Current Visit: Yes Status: Acute Assessment & Plan: -labs reviewed, potassium at 3.0, replenished with 20meq IV potassium, continue to monitor, replace per protocol -Monitor renal/lytes daily -tele Code(s): E87.6 - HYPOKALEMIA (7) Right upper limb pain Current Visit: Yes Status: Acute Assessment & Plan: -xray demonstrates osteopenia and 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 Also new high riding humeral head commonly seen with rotator cuff tear. -RICE -PT -Consider ortho consult/MRI as OP if no improvement (8) Diabetes Mellitus -Patient states she has just recently been diagnosed, prescribed ozempic by PCP -ADA diet -Glargine/SSI/mealtime insulin -will need to monitor closely while on steroids (2) Acute respiratory failure with hypoxia Current Visit: Yes Status: Acute Code(s): J96.01 - ACUTE RESPIRATORY FAILURE WITH HYPOXIA (3) COPD exacerbation Current Visit: Yes Status: Acute Code(s): J44.1 - CHRONIC OBSTRUCTIVE PULMONARY DISEASE W (ACUTE) EXACERBATION (4) CHF (congestive heart failure) Current Visit: Yes Status: Acute Code(s): I50.9 - HEART FAILURE, UNSPECIFIED (5) Acute on chronic kidney failure Current Visit: Yes Status: Acute Code(s): N17.9 - ACUTE KIDNEY FAILURE, UNSPECIFIED; N18.9 - CHRONIC KIDNEY DISEASE, UNSPECIFIED (6) Hypokalemia Current Visit: Yes Status: Acute Code(s): E87.6 - HYPOKALEMIA (7) Right upper limb pain Current Visit: Yes Status: Acute Code(s): M79.601 - PAIN IN RIGHT ARM (8) Diabetes mellitus Current Visit: Yes Status: Acute Code(s): E11.9 - TYPE 2 DIABETES MELLITUS WITHOUT COMPLICATIONS
[2023-04-25 05:51] LABS: Absolute Neutrophil Ct (ANC) 19.59 x10^3/uL (1.4-6.9); BASOPHIL % 0.1 % (0.0-0.4); Basophil (Absolute #) 0.02 x10^3/uL (0-0.4); Eosinophil (Absolute #) 0.01 x10^3/uL (0-0.5); Hematocrit 30.8 % (35-47); Hemoglobin 9.9 g/dL (12.0-16.0); IMMATURE GRAN # 0.26 x10^3u/L (0.00-0.03); IMMATURE GRAN % 1.2 % (0.00-0.4); Lymphocyte (Absolute #) 0.48 x10^3/uL (1.0-4.6); Lymphocytes % 2.3 % (24.0-44.0); Mean Cell Volume 97.2 fL (78-100); Mean Corpuscular Hemoglobin 31.2 pg (26-32); Mean Corpuscular Hgb Concent. 32.1 g/dL (32-36); Mean Platelet Volume 10.9 fL (7.5-11.0); Monocyte (Absolute #) 0.53 x10^3/uL (0.0-1.3); Monocytes % 2.5 % (0.0-12.0); Neutrophil % 93.9 % (36.0-66.0); Platelet Count 196 x10^3/uL (150-450); Red Blood Count 3.17 x10^6/uL (4.1-5.4); Red Cell Distribution Width 14.1 % (11.5-14.0); White Blood Count 20.9 x10^3/uL (4.0-10.5)
[2023-04-25 06:04] LABS: ALBUMIN 3.6 g/dL (3.5-5.0); ANION GAP 14.4 MEQ/L (5-15); BILIRUBIN,TOTAL 0.3 mg/dL (0.2-1.3); Calcium 8.7 mg/dL (8.4-10.2); Creatinine 1 1.99 mg/dL (0.52-1.04); EST GLOMERULAR FILTRATION RATE 24.8 ML/MIN; Potassium 3.7 mmol/L (3.5-5.1)
[2023-04-25 07:45] LABS: Slide Review 1 YES
[2023-04-25] MEDS: NYSTOP POWDER 15 GM TP SCH (13:50)
[2023-04-25] MEDS: solu-MEDROL 40 MG, Sterile H2O 10 ml 1 ML IV SCH (14:43)
[2023-04-25] MEDS: SODIUM CHLORIDE 0.9% IV SCH (14:44)
[2023-04-25] MEDS: INVANZ IV SCH (14:44)
[2023-04-25] MEDS: HUMALOG SQ PRN (21:46)
[2023-04-25] MEDS: Robitussin-Dm Syrup PO PRN (23:02)
[2023-04-26 06:19] LABS: Absolute Neutrophil Ct (ANC) 19.99 x10^3/uL (1.4-6.9); BASOPHIL % 0.1 % (0.0-0.4); Basophil (Absolute #) 0.03 x10^3/uL (0-0.4); Eosinophil (Absolute #) 0 x10^3/uL (0-0.5); Hematocrit 29.5 % (35-47); Hemoglobin 9.5 g/dL (12.0-16.0); IMMATURE GRAN # 0.32 x10^3u/L (0.00-0.03); IMMATURE GRAN % 1.5 % (0.00-0.4); Lymphocyte (Absolute #) 0.49 x10^3/uL (1.0-4.6); Lymphocytes % 2.3 % (24.0-44.0); Mean Cell Volume 96.4 fL (78-100); Mean Corpuscular Hgb Concent. 32.2 g/dL (32-36); Monocyte (Absolute #) 0.54 x10^3/uL (0.0-1.3); Monocytes % 2.5 % (0.0-12.0); Neutrophil % 93.6 % (36.0-66.0); Platelet Count 225 x10^3/uL (150-450); Red Blood Count 3.06 x10^6/uL (4.1-5.4); Red Cell Distribution Width 14.3 % (11.5-14.0); White Blood Count 21.4 x10^3/uL (4.0-10.5)
--- NOTE | 2023-04-26 06:22 | PCM.NOTE ---
Date and Time: 04/26/23619 Subjective Assessment: Ms. Bragg is an 82 year old female with a pmhx of COPD (baseline 2L oxygen), CHF, HTN, GERD, and anxiety who presented to ED 04/23/23 with complaints of a three day history of progressive worsening shortness of breath, productive cough with green sputum, and wheezing. Patient was seen OP, CXR with non-acute findings. Patient received rocephin/steroid injection at that time. Upon arrival to ED patient was hypoxic on RA with spo2 in the mid 80s, recovering to 94% when placed on 3L. Lab findings remarkable for leukocytosis, mild BRANDEN. Patient admitted with COPD with exacerbation and BRANDEN. IP treatment with levaquin/solumedrol abx changed to ertapenem due to ESBL ecoli on urine culture. 04/26/23: Met with patient bedside. Dyspnea has improved. Cough is productive with yellow sputum. Endorses improvement overall. On baseline oxygen of 2L. UTI with ESBL ecoli, ertapenem started. Denies dysuria, hematuria, burning, or frequency. Creat remains elevated, patient follows with nephrology outpt. PVR ordered. Continue gentle hydration for now, monitor for fluid overload with CHF history. May need follow up with urology for recurrent UTIs. - Review of Systems Constitutional: No Symptoms Eyes: No Symptoms Ears, Nose, & Throat: No Symptoms Respiratory: Cough, Short Of Breath Abdominal/Gastrointestinal: No Symptoms Genitourinary Symptoms: No Symptoms Musculoskeletal: No Symptoms Skin: No Symptoms Neurological: No Symptoms Psychological: No Symptoms Endocrine: No Symptoms Hematologic/Lymphatic: No Symptoms Immunological/Allergic: No Symptoms Objective Exam General Appearance: no apparent distress Neurologic Exam: alert, 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, cooperative Skin Exam: normal color Eye Exam: PERRL Ears, Nose, Throat Exam: normal ENT inspection Neck Exam: normal inspection Respiratory Exam: diminished breath sounds, wheezing Cardiovascular Exam: regular rate/rhythm, normal heart sounds Gastrointestinal/Abdomen Exam: soft, normal bowel sounds Extremity Exam: normal inspection Back Exam: normal inspection Pelvic Exam: deferred Rectal Exam: deferred Objective Data Vital Signs: Vital Signs - 24 hr Temp Pulse Resp BP Pulse Ox 04/26/23 04:54 97.8 F 86 22 154/72 99 04/26/23 04:08 90 20 99 04/25/23 23:53 97.8 F 90 20 124/67 97 04/25/23 23:29 87 22 94 L 04/25/23 20:00 97.0 F 87 22 150/70 93 L 04/25/23 19:25 92 H 20 99 04/25/23 16:00 97.7 F 112 H 19 128/65 96 04/25/23 15:36 98 H 18 97 04/25/23 12:00 97.5 F 98 H 16 115/56 98 04/25/23 11:51 98 H 18 94 L 04/25/23 07:57 97.5 F 99 H 16 141/67 96 04/25/23 07:43 96 H 18 91 L Pain Assessment - Last Documented Pain Intensity 0 Intake and Output: Intake & Output 04/23/23 04/24/23 04/25/23 04/26/23 11:59 11:59 11:59 12:59 Intake Total 1837 2440 4399 Output Total 450 Balance 1387 2440 4399 Weight 114.6 kg Lab Results: Lab Results-Last 24 Hours 04/25/23 04/25/23 04/25/23 Range/Units 05:41 05:41 05:41 WBC 20.9 H (4.0-10.5) x10^3/uL RBC 3.17 L (4.1-5.4) x10^6/uL Hgb 9.9 L (12.0-16.0) g/dL Hct 30.8 L (35-47) % MCV 97.2 (78-100) fL MCH 31.2 (26-32) pg MCHC 32.1 (32-36) g/dL RDW 14.1 H (11.5-14.0) % Plt Count 196 (150-450) x10^3/uL MPV 10.9 (7.5-11.0) fL Gran % 93.9 H (36.0-66.0) % Immature Gran % (Auto) 1.2 H (0.00-0.4) % Nucleat RBC Rel Count 0.0 (0.00-0.1) % Eos # (Auto) 0.01 (0-0.5) x10^3/uL Immature Gran # (Auto) 0.26 H (0.00-0.03) x10^3u/L Absolute Lymphs (auto) 0.48 L (1.0-4.6) x10^3/uL Absolute Monos (auto) 0.53 (0.0-1.3) x10^3/uL Absolute Nucleated RBC 0.00 (0.00-0.01) x10^3u/L Lymphocytes % 2.3 L (24.0-44.0) % Monocytes % 2.5 (0.0-12.0) % Eosinophils % 0.0 (0.00-5.0) % Basophils % 0.1 (0.0-0.4) % Absolute Granulocytes 19.59 H (1.4-6.9) x10^3/uL Basophils # 0.02 (0-0.4) x10^3/uL Sodium 138 (135-145) mmol/L Potassium 3.7 (3.5-5.1) mmol/L Chloride 106 (98-107) mmol/L Carbon Dioxide 21 L (22-30) mmol/L Anion Gap 14.4 (5-15) MEQ/L BUN 46 H (7-17) mg/dL Creatinine 1.99 H (0.52-1.04) mg/dL Estimated GFR 24.8 ML/MIN Glucose 322 H (74-106) mg/dL POC Glucometer (74 to 106) mg/dL Lactic Acid (0.4-2.0) Calcium 8.7 (8.4-10.2) mg/dL Total Bilirubin 0.30 (0.2-1.3) mg/dL AST 17 (14-36) U/L ALT 13 (0-35) U/L Alkaline Phosphatase 59 (38-126) U/L Serum Total Protein 6.0 L (6.3-8.2) g/dL Albumin 3.6 (3.5-5.0) g/dL Procalcitonin 0.142 H (0.030-0.080) ng/mL Slides for Path Review YES 04/25/23 04/25/23 04/25/23 Range/Units 07:32 11:45 11:59 WBC (4.0-10.5) x10^3/uL RBC (4.1-5.4) x10^6/uL Hgb (12.0-16.0) g/dL Hct (35-47) % MCV (78-100) fL MCH (26-32) pg MCHC (32-36) g/dL RDW (11.5-14.0) % Plt Count (150-450) x10^3/uL MPV (7.5-11.0) fL Gran % (36.0-66.0) % Immature Gran % (Auto) (0.00-0.4) % Nucleat RBC Rel Count (0.00-0.1) % Eos # (Auto) (0-0.5) x10^3/uL Immature Gran # (Auto) (0.00-0.03) x10^3u/L Absolute Lymphs (auto) (1.0-4.6) x10^3/uL Absolute Monos (auto) (0.0-1.3) x10^3/uL Absolute Nucleated RBC (0.00-0.01) x10^3u/L Lymphocytes % (24.0-44.0) % Monocytes % (0.0-12.0) % Eosinophils % (0.00-5.0) % Basophils % (0.0-0.4) % Absolute Granulocytes (1.4-6.9) x10^3/uL Basophils # (0-0.4) x10^3/uL Sodium (135-145) mmol/L Potassium (3.5-5.1) mmol/L Chloride (98-107) mmol/L Carbon Dioxide (22-30) mmol/L Anion Gap (5-15) MEQ/L BUN (7-17) mg/dL Creatinine (0.52-1.04) mg/dL Estimated GFR ML/MIN Glucose (74-106) mg/dL POC Glucometer 301 H 321 H (74 to 106) mg/dL Lactic Acid 2.2 H (0.4-2.0) Calcium (8.4-10.2) mg/dL Total Bilirubin (0.2-1.3) mg/dL AST (14-36) U/L ALT (0-35) U/L Alkaline Phosphatase (38-126) U/L Serum Total Protein (6.3-8.2) g/dL Albumin (3.5-5.0) g/dL Procalcitonin (0.030-0.080) ng/mL Slides for Path Review 03/09/24 03/09/24 Range/Units 16:37 21:35 WBC (4.0-10.5) x10^3/uL RBC (4.1-5.4) x10^6/uL Hgb (12.0-16.0) g/dL Hct (35-47) % MCV (78-100) fL MCH (26-32) pg MCHC (32-36) g/dL RDW (11.5-14.0) % Plt Count (150-450) x10^3/uL MPV (7.5-11.0) fL Gran % (36.0-66.0) % Immature Gran % (Auto) (0.00-0.4) % Nucleat RBC Rel Count (0.00-0.1) % Eos # (Auto) (0-0.5) x10^3/uL Immature Gran # (Auto) (0.00-0.03) x10^3u/L Absolute Lymphs (auto) (1.0-4.6) x10^3/uL Absolute Monos (auto) (0.0-1.3) x10^3/uL Absolute Nucleated RBC (0.00-0.01) x10^3u/L Lymphocytes % (24.0-44.0) % Monocytes % (0.0-12.0) % Eosinophils % (0.00-5.0) % Basophils % (0.0-0.4) % Absolute Granulocytes (1.4-6.9) x10^3/uL Basophils # (0-0.4) x10^3/uL Sodium (135-145) mmol/L Potassium (3.5-5.1) mmol/L Chloride (98-107) mmol/L Carbon Dioxide (22-30) mmol/L Anion Gap (5-15) MEQ/L BUN (7-17) mg/dL Creatinine (0.52-1.04) mg/dL Estimated GFR ML/MIN Glucose (74-106) mg/dL POC Glucometer 270 H 274 H (74 to 106) mg/dL Lactic Acid (0.4-2.0) Calcium (8.4-10.2) mg/dL Total Bilirubin (0.2-1.3) mg/dL AST (14-36) U/L ALT (0-35) U/L Alkaline Phosphatase (38-126) U/L Serum Total Protein (6.3-8.2) g/dL Albumin (3.5-5.0) g/dL Procalcitonin (0.030-0.080) ng/mL Slides for Path Review Radiology Exams: Radiology Procedures Category Date Time Status HUMERUS Stat Exams 04/24/23 08:10 Completed Assessment/Plan (1) Sepsis Current Visit: Yes Status: Acute Assessment & Plan: -CT with no acute abnormality -UA negative -Lactic acid trend 2.5>2.1, IVF at 75ml/hr due to CHF -Resp ramirez negative -Levaquin started -WBC improving 14.3<15.5 04/24: -WBC uptrending, most likely from steroid, procal ordered 04/25: -UTI with ESBL, levaquin changed to ertapenem (2) Acute respiratory failure with hypoxia Current Visit: Yes Status: Acute Assessment & Plan: / to COPD exacerbation -steroids/duonebs/INH -RT consult -Titrate oxygen for goal spo2 88-92 %, baseline 2L 04/24: -at baseline oxygen 2L -continue solumedrol/duoNebs/INH Code(s): J96.01 - ACUTE RESPIRATORY FAILURE WITH HYPOXIA (3) COPD exacerbation Current Visit: Yes Status: Acute Assessment & Plan: -Supplemental oxygen with spo2 goal 88-92% -Follows with Dr. Rivera -RT eval -nebs/inh prn -Solumedrol -Resp panel negative -Levaquin -Mucinex 04/24: -Improving, now at baseline oxygen, cough more productive with mucinex -Continue abx/steroid/duonebs/InH -Taper solumedrol with clinical response Code(s): J44.1 - CHRONIC OBSTRUCTIVE PULMONARY DISEASE W (ACUTE) EXACERBATION (4) CHF (congestive heart failure) Current Visit: Yes Status: Acute Assessment & Plan: -Euvolemic -Monitor for fluid overload -BNP 738 -CXR with no acute cardiopulmonary process -Hold lasix due to kidney function Code(s): I50.9 - HEART FAILURE, UNSPECIFIED (5) Acute on chronic kidney failure Current Visit: Yes Status: Acute Assessment & Plan: -Creat at 1.76, baseline around 1.3 -Gentle hydration -Hold HCTZ -Follows with [facility]-nephrology -Avoid JONA/ARBs/NSAIDS - hold lasix / Jardiance 04/24: -IVF -monitor for fluid overload -Hold losartan/jardiance/lasix for now 04/25: -PVR/Bladder scan -Consider renal us/nephrology consult tomorrow if no improvement -Strict I&O -Monitor renal/lytes daily - VTE: heparin PPI: Protonix Dispo: home 1-2 days Code(s): N17.9 - ACUTE KIDNEY FAILURE, UNSPECIFIED; N18.9 - CHRONIC KIDNEY DISEASE, UNSPECIFIED (6) Hypokalemia Current Visit: Yes Status: Acute Assessment & Plan: -labs reviewed, potassium at 3.0, replenished with 20meq IV potassium, continue to monitor, replace per protocol -Monitor renal/lytes daily -tele Code(s): E87.6 - HYPOKALEMIA (7) Right upper limb pain Current Visit: Yes Status: Acute Assessment & Plan: -xray demonstrates osteopenia and 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 Also new high riding humeral head commonly seen with rotator cuff tear. -RICE -PT -Consider ortho consult/MRI as OP if no improvement (8) Diabetes Mellitus -Patient states she has just recently been diagnosed, prescribed ozempic by PCP -ADA diet -Glargine/SSI/mealtime insulin -will need to monitor closely while on steroids (2) Acute respiratory failure with hypoxia Current Visit: Yes Status: Acute Code(s): J96.01 - ACUTE RESPIRATORY FAILURE WITH HYPOXIA (3) COPD exacerbation Current Visit: Yes Status: Acute Code(s): J44.1 - CHRONIC OBSTRUCTIVE PULMONARY DISEASE W (ACUTE) EXACERBATION (4) CHF (congestive heart failure) Current Visit: Yes Status: Acute Code(s): I50.9 - HEART FAILURE, UNSPECIFIED (5) Acute on chronic kidney failure Current Visit: Yes Status: Acute Code(s): N17.9 - ACUTE KIDNEY FAILURE, UNSPECIFIED; N18.9 - CHRONIC KIDNEY DISEASE, UNSPECIFIED (6) Hypokalemia Current Visit: Yes Status: Acute Code(s): E87.6 - HYPOKALEMIA (7) Right upper limb pain Current Visit: Yes Status: Acute Code(s): M79.601 - PAIN IN RIGHT ARM (8) Diabetes mellitus Current Visit: Yes Status: Acute Code(s): E11.9 - TYPE 2 DIABETES MELLITUS WITHOUT COMPLICATIONS
[2023-04-26 06:44] LABS: ALBUMIN 3.4 g/dL (3.5-5.0); ANION GAP 11.8 MEQ/L (5-15); BILIRUBIN,TOTAL 0.1 mg/dL (0.2-1.3); Calcium 8.9 mg/dL (8.4-10.2); Creatinine 1 1.97 mg/dL (0.52-1.04); EST GLOMERULAR FILTRATION RATE 25.1 ML/MIN; Potassium 3.6 mmol/L (3.5-5.1); Total Protein 5.8 g/dL (6.3-8.2)
[2023-04-26 13:10] LABS: Slide Review 1 YES
[2023-04-26] MEDS: solu-MEDROL 40 MG, Sterile H2O 10 ml 1 ML IV SCH (21:46)
[2023-04-26] MEDS: Lantus Insulin SQ SCH (21:47)
[2023-04-27] MEDS: DUONEB 0.5-3 MG/3 ml Neb IH SCH (02:09)
[2023-04-27 04:41] LABS: ALBUMIN 3.2 g/dL (3.5-5.0); ALKALINE PHOSPHATASE 69 U/L (38-126); ANION GAP 11.2 MEQ/L (5-15); BILIRUBIN,TOTAL < 0.10 mg/dL (0.2-1.3); BLOOD UREA NITROGEN 53 mg/dL (7-17); CHLORIDE 105 mmol/L (98-107); Calcium 8.9 mg/dL (8.4-10.2); Carbon Dioxide 26 mmol/L (22-30); Creatinine 1 1.81 mg/dL (0.52-1.04); EST GLOMERULAR FILTRATION RATE 27.8 ML/MIN; Glucose 256 mg/dL (74-106); Potassium 4.3 mmol/L (3.5-5.1); SGOT/AST 17 U/L (14-36); SGPT/ALT 16 U/L (0-35); SODIUM 139 mmol/L (135-145); Total Protein 5.5 g/dL (6.3-8.2)
[2023-04-27 04:42] LABS: Absolute Neutrophil Ct (ANC) 14.95 x10^3/uL (1.4-6.9); BASOPHIL % 0.1 % (0.0-0.4); Basophil (Absolute #) 0.02 x10^3/uL (0-0.4); Eosinophil (Absolute #) 0 x10^3/uL (0-0.5); Hematocrit 30.5 % (35-47); Hemoglobin 9.5 g/dL (12.0-16.0); IMMATURE GRAN # 0.65 x10^3u/L (0.00-0.03); IMMATURE GRAN % 3.9 % (0.00-0.4); Lymphocyte (Absolute #) 0.48 x10^3/uL (1.0-4.6); Lymphocytes % 2.9 % (24.0-44.0); Mean Cell Volume 98.1 fL (78-100); Mean Corpuscular Hemoglobin 30.5 pg (26-32); Mean Corpuscular Hgb Concent. 31.1 g/dL (32-36); Mean Platelet Volume 10.7 fL (7.5-11.0); Monocyte (Absolute #) 0.53 x10^3/uL (0.0-1.3); Monocytes % 3.2 % (0.0-12.0); Neutrophil % 89.9 % (36.0-66.0); Platelet Count 204 x10^3/uL (150-450); Red Blood Count 3.11 x10^6/uL (4.1-5.4); Red Cell Distribution Width 14.2 % (11.5-14.0); White Blood Count 16.6 x10^3/uL (4.0-10.5)
[2023-04-27 05:38] LABS: Slide Review 1 YES
[2023-04-27 07:02] VITALS: RESP 16
[2023-04-27 07:36] VITALS: TEMP 97.9
[2023-04-27] MEDS: HUMALOG SQ SCH (08:02)
--- NOTE | 2023-04-27 10:27 | PCM.DS ---
Discharge Summary Date of Admission: 04/23/23 18:05 Date of Discharge: 04/27/23 Admitting Physician: ASHLEE GARZA MD Consults: Consults on Case 04/24/23 10:02 [facility] Primary Care Provider: FRANKI TOBAR Allergies Allergies vancomycin Adverse Reaction (Severe, Verified 04/23/23 18:17) pt states causes kidney damage ALLERGIC TO IV ONLY IV contrast dye Adverse Reaction (Severe, Uncoded 04/23/23 13:46) Hospital Summary - Hospital Course Hospital Course: Ms. Bragg is an 82 year old female with a pmhx of COPD (baseline 2L oxygen), CHF, HTN, GERD, and anxiety who presented to ED 04/23/23 with complaints of a three day history of progressive worsening shortness of breath, productive cough with green sputum, and wheezing. Patient was seen OP, CXR with non-acute findings. Patient received rocephin/steroid injection at that time. Upon arrival to ED patient was hypoxic on RA with spo2 in the mid 80s, recovering to 94% when placed on 3L. Lab findings remarkable for leukocytosis, mild BRANDEN. Patient admitted with COPD with exacerbation and BRANDEN. IP treatment with levaquin/solumedrol abx changed to ertapenem due to ESBL ecoli on urine culture, 04/24. Dyspnea resolved and room air 96% today. Using baseline oxygen of 2L at night. Denies dysuria, hematuria, burning, or frequency. Creat remains elevated but improved, patient follows with nephrology outpt. May need follow up with urology OP for recurrent UTIs, can discuss with PCP. She will need to f/u with PCP OP. Will d/c with antibiotics. She denies any further concerns at this time. - Vitals & Intake/Output Vital Signs: Vital Signs Temperature 97.9 F 04/27/23 07:35 Pulse Rate 77 04/27/23 07:35 Respiratory Rate 16 04/27/23 07:35 Blood Pressure 147/70 04/27/23 07:35 O2 Sat by Pulse Oximetry 96 04/27/23 07:35 Intake & Output: Intake & Output 04/24/23 04/25/23 04/26/23 04/27/23 10:59 10:59 11:59 11:59 Intake Total 3928 Output Total 1450 Balance 2478 Weight - Lab Result Diagrams: 04/27/23 04:10 04/27/23 04:10 Lab Results-Last 24 Hrs: Lab Results-Last 24 Hours 04/26/23 04/26/23 04/26/23 Range/Units 05:17 12:01 16:57 WBC (4.0-10.5) x10^3/uL RBC (4.1-5.4) x10^6/uL Hgb (12.0-16.0) g/dL Hct (35-47) % MCV (78-100) fL MCH (26-32) pg MCHC (32-36) g/dL RDW (11.5-14.0) % Plt Count (150-450) x10^3/uL MPV (7.5-11.0) fL Gran % (36.0-66.0) % Immature Gran % (Auto) (0.00-0.4) % Nucleat RBC Rel Count (0.00-0.1) % Eos # (Auto) (0-0.5) x10^3/uL Immature Gran # (Auto) (0.00-0.03) x10^3u/L Absolute Lymphs (auto) (1.0-4.6) x10^3/uL Absolute Monos (auto) (0.0-1.3) x10^3/uL Absolute Nucleated RBC (0.00-0.01) x10^3u/L Lymphocytes % (24.0-44.0) % Monocytes % (0.0-12.0) % Eosinophils % (0.00-5.0) % Basophils % (0.0-0.4) % Absolute Granulocytes (1.4-6.9) x10^3/uL Basophils # (0-0.4) x10^3/uL Sodium (135-145) mmol/L Potassium (3.5-5.1) mmol/L Chloride (98-107) mmol/L Carbon Dioxide (22-30) mmol/L Anion Gap (5-15) MEQ/L BUN (7-17) mg/dL Creatinine (0.52-1.04) mg/dL Estimated GFR ML/MIN Glucose (74-106) mg/dL POC Glucometer 384 H 303 H (74 to 106) mg/dL Calcium (8.4-10.2) mg/dL Total Bilirubin (0.2-1.3) mg/dL AST (14-36) U/L ALT (0-35) U/L Alkaline Phosphatase (38-126) U/L Serum Total Protein (6.3-8.2) g/dL Albumin (3.5-5.0) g/dL Slides for Path Review YES 04/26/23 04/27/23 04/27/23 Range/Units 21:32 04:10 04:10 WBC 16.6 H (4.0-10.5) x10^3/uL RBC 3.11 L (4.1-5.4) x10^6/uL Hgb 9.5 L (12.0-16.0) g/dL Hct 30.5 L (35-47) % MCV 98.1 (78-100) fL MCH 30.5 (26-32) pg MCHC 31.1 L (32-36) g/dL RDW 14.2 H (11.5-14.0) % Plt Count 204 (150-450) x10^3/uL MPV 10.7 (7.5-11.0) fL Gran % 89.9 H (36.0-66.0) % Immature Gran % (Auto) 3.9 H (0.00-0.4) % Nucleat RBC Rel Count 0.0 (0.00-0.1) % Eos # (Auto) 0 (0-0.5) x10^3/uL Immature Gran # (Auto) 0.65 H (0.00-0.03) x10^3u/L Absolute Lymphs (auto) 0.48 L (1.0-4.6) x10^3/uL Absolute Monos (auto) 0.53 (0.0-1.3) x10^3/uL Absolute Nucleated RBC 0.00 (0.00-0.01) x10^3u/L Lymphocytes % 2.9 L (24.0-44.0) % Monocytes % 3.2 (0.0-12.0) % Eosinophils % 0.0 (0.00-5.0) % Basophils % 0.1 (0.0-0.4) % Absolute Granulocytes 14.95 H (1.4-6.9) x10^3/uL Basophils # 0.02 (0-0.4) x10^3/uL Sodium 139 (135-145) mmol/L Potassium 4.3 (3.5-5.1) mmol/L Chloride 105 (98-107) mmol/L Carbon Dioxide 26 (22-30) mmol/L Anion Gap 11.2 (5-15) MEQ/L BUN 53 H (7-17) mg/dL Creatinine 1.81 H (0.52-1.04) mg/dL Estimated GFR 27.8 ML/MIN Glucose 256 H (74-106) mg/dL POC Glucometer 233 H (74 to 106) mg/dL Calcium 8.9 (8.4-10.2) mg/dL Total Bilirubin < 0.10 L (0.2-1.3) mg/dL AST 17 (14-36) U/L ALT 16 (0-35) U/L Alkaline Phosphatase 69 (38-126) U/L Serum Total Protein 5.5 L (6.3-8.2) g/dL Albumin 3.2 L (3.5-5.0) g/dL Slides for Path Review YES 04/27/23 Range/Units 07:25 WBC (4.0-10.5) x10^3/uL RBC (4.1-5.4) x10^6/uL Hgb (12.0-16.0) g/dL Hct (35-47) % MCV (78-100) fL MCH (26-32) pg MCHC (32-36) g/dL RDW (11.5-14.0) % Plt Count (150-450) x10^3/uL MPV (7.5-11.0) fL Gran % (36.0-66.0) % Immature Gran % (Auto) (0.00-0.4) % Nucleat RBC Rel Count (0.00-0.1) % Eos # (Auto) (0-0.5) x10^3/uL Immature Gran # (Auto) (0.00-0.03) x10^3u/L Absolute Lymphs (auto) (1.0-4.6) x10^3/uL Absolute Monos (auto) (0.0-1.3) x10^3/uL Absolute Nucleated RBC (0.00-0.01) x10^3u/L Lymphocytes % (24.0-44.0) % Monocytes % (0.0-12.0) % Eosinophils % (0.00-5.0) % Basophils % (0.0-0.4) % Absolute Granulocytes (1.4-6.9) x10^3/uL Basophils # (0-0.4) x10^3/uL Sodium (135-145) mmol/L Potassium (3.5-5.1) mmol/L Chloride (98-107) mmol/L Carbon Dioxide (22-30) mmol/L Anion Gap (5-15) MEQ/L BUN (7-17) mg/dL Creatinine (0.52-1.04) mg/dL Estimated GFR ML/MIN Glucose (74-106) mg/dL POC Glucometer 255 H (74 to 106) mg/dL Calcium (8.4-10.2) mg/dL Total Bilirubin (0.2-1.3) mg/dL AST (14-36) U/L ALT (0-35) U/L Alkaline Phosphatase (38-126) U/L Serum Total Protein (6.3-8.2) g/dL Albumin (3.5-5.0) g/dL Slides for Path Review Micro Results-Entire Visit: Microbiology 04/23/23 17:34 Urine Culture - Final Urine, Void Escherichia Coli 04/23/23 14:46 Blood Culture - Preliminary Blood Accuchecks Date 04/27/23 Date 04/26/23 Date 04/26/23 Time 07:37 Time 17:14 Time 13:19 - Procedures and Test Procedures and Tests throughout Hospitalization: Therapy Orders & Screens 04/23/23 14:02 Respiratory Therapy Assessment DAILY Comment: 04/23/23 18:10 Oxygen Nasal Cannula 3 lpm Comment: Respiratory Therapy Consult ONCE Comment: Reason For Exam: 04/23/23 20:10 Respiratory Therapy Assessment DAILY Comment: Diagnosis: ACUTE HYPOXIC RESP FAILURE, COPD EXAC 04/24/23 18:33 Flutter Therapy UD Comment: Diagnosis: ACUTE HYPOXIC RESP FAILURE, COPD EXAC Incentive Spirometry UD Comment: Diagnosis: ACUTE HYPOXIC RESP FAILURE, COPD EXAC 04/24/23 18:43 Respiratory MDI BID Comment: Diagnosis: ACUTE HYPOXIC RESP FAILURE, COPD EXAC Discharge Exam General Appearance: no apparent distress, alert, obese Neurologic Exam: alert, 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, cooperative, normal mood/affect, nml c erebellar function, sensation nml, No motor deficits Eye Exam: PERRL, EOMI, eyes nml inspection Ears, Nose, Throat Exam: normal ENT inspection, pharynx normal, moist mucous membranes Neck Exam: normal inspection, non-tender, supple, full range of motion Respiratory Exam: normal breath sounds, lungs clear, No respiratory distress Cardiovascular Exam: regular rate/rhythm, normal heart sounds Gastrointestinal/Abdomen Exam: soft, No tenderness, No mass Pelvic Exam: deferred Rectal Exam: deferred Back Exam: normal inspection, normal range of motion, No CVA tenderness, No ve rtebral tenderness Extremity Exam: normal inspection, normal range of motion Skin Exam: normal color, warm, dry Final Diagnosis/Problem List - Final Discharge Diagnosis/Problem (1) Sepsis Current Visit: Yes Status: Resolved (2) Acute respiratory failure with hypoxia Current Visit: Yes Status: Resolved Code(s): J96.01 - ACUTE RESPIRATORY FAILURE WITH HYPOXIA (3) COPD exacerbation Current Visit: Yes Status: Resolved Code(s): J44.1 - CHRONIC OBSTRUCTIVE PULMONARY DISEASE W (ACUTE) EXACERBATION (4) CHF (congestive heart failure) Current Visit: Yes Status: Resolved Code(s): I50.9 - HEART FAILURE, UNSPECIFIED (5) Acute on chronic kidney failure Current Visit: Yes Status: Acute Code(s): N17.9 - ACUTE KIDNEY FAILURE, UNSPECIFIED; N18.9 - CHRONIC KIDNEY DISEASE, UNSPECIFIED (6) Hypokalemia Current Visit: Yes Status: Resolved Code(s): E87.6 - HYPOKALEMIA (7) Right upper limb pain Current Visit: Yes Status: Chronic Code(s): M79.601 - PAIN IN RIGHT ARM (8) Diabetes mellitus Current Visit: Yes Status: Chronic Assessment & Plan: (1) Sepsis Current Visit: Yes Status: Acute Assessment & Plan: - 2:2 UTI -UTI with ESBL, levaquin changed to ertapenem on 04/25/2304/26 - WBC improved 16.6 - d/c with bactrim per sensitivity results. (2) Acute respiratory failure with hypoxia Current Visit: Yes Status: Acute Assessment & Plan: - 2/2 to COPD exacerbation - steroids/duonebs/INH - RA 96% - using Baseline 2lNC at night - resolved Code(s): J96.01 - ACUTE RESPIRATORY FAILURE WITH HYPOXIA (3) COPD exacerbation Current Visit: Yes Status: Acute Assessment & Plan: - resolved Code(s): J44.1 - CHRONIC OBSTRUCTIVE PULMONARY DISEASE W (ACUTE) EXACERBATION (4) CHF (congestive heart failure) Current Visit: Yes Status: Acute Assessment & Plan: -Euvolemic -Monitor for fluid overload -BNP 738 on admission -CXR with no acute cardiopulmonary process -Hold lasix due to kidney function Code(s): I50.9 - HEART FAILURE, UNSPECIFIED (5) Acute on chronic kidney failure Current Visit: Yes Status: Acute Assessment & Plan: - creat 1.81, baseline around 1.25 - Follows with [facility]-nephrology - F/U OP Code(s): N17.9 - ACUTE KIDNEY FAILURE, UNSPECIFIED; N18.9 - CHRONIC KIDNEY DISEASE, UNSPECIFIED (6) Hypokalemia Current Visit: Yes Status: Acute Assessment & Plan: - resolved Code(s): E87.6 - HYPOKALEMIA (7) Right upper limb pain Current Visit: Yes Status: Acute Assessment & Plan: -xray demonstrates osteopenia and 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 Also new high riding humeral head commonly seen with rotator cuff tear. -RICE -PT -Consider ortho consult/MRI as OP if no improvement (8) Diabetes Mellitus -Patient states she has just recently been diagnosed, prescribed ozempic by PCP -ADA diet -Glargine/SSI/mealtime insulin -will need to monitor closely while on steroids Code(s): E11.9 - TYPE 2 DIABETES MELLITUS WITHOUT COMPLICATIONS - Discharge Discharge Date: 04/27/23 Disposition: Home, Self-Care Condition: Stable Prescriptions: Continue Aspirin EC 81 mg [Ecotrin 81 mg] 81 mg PO DAILY ALPRAZolam [Alprazolam ER] 1 mg PO BID PRN Sertraline HCl 50 mg [Zoloft 50 mg Tablet] 50 mg PO DAILY Metoprolol Succinate 25 mg Xl* [Toprol-Xl 25MG Tablets] 25 mg PO DAILY Ferrous Sulfate [Iron] 325 mg PO BID Donepezil HCl [Aricept] 5 mg PO DAILY Losartan/Hydrochlorothiazide [Losartan-Hctz 100-25 mg Tab] 1 each PO DAILY Hydrocodone/Acetaminophen [Hydrocodone-Acetamin 5-325 mg] 1 tab PO TIDPRN PRN MDD 3 PRN Reason: Pain Empagliflozin [Jardiance] 10 mg PO DAILY Furosemide 40 mg [Lasix 40 MG] 10 mg PO DAILY Potassium Chloride 20 meq PO DAILY Additional Instructions: Hold Lasix and Losartan/ HCTZ until you follow up with nephrology. Then please follow their recommendations. Follow up with: FRANKI TOBAR MD [Primary Care Provider] - 05/05/23 11:00 am
[2023-04-27 11:32] VITALS: BP 139/66; PULSE 81; O2SAT 94
== END 2023-04-27 13:15 | disposition home or self-care (01) ==
LOC: ED 13:44 → MED SURG 18:05
PROVIDERS: ADMIT Internal Medicine; ATTEND Internal Medicine
DX: A41.9 Sepsis, unspecified organism (principal); J96.01 Acute respiratory failure with hypoxia; J44.1 Chronic obstructive pulmonary disease with (acute) exacerbation; E11.22 Type 2 diabetes mellitus with diabetic chronic kidney disease; I13.0 Hypertensive heart and chronic kidney disease with heart failure and stage 1 through stage 4 chronic kidney disease, or unspecified chronic kidney disease; I50.9 Heart failure, unspecified; N17.9 Acute kidney failure, unspecified; N18.9 Chronic kidney disease, unspecified; E87.6 Hypokalemia; M79.601 Pain in right arm; N39.0 Urinary tract infection, site not specified; B96.20 Unspecified Escherichia coli [E. coli] as the cause of diseases classified elsewhere; Z77.120 Contact with and (suspected) exposure to mold (toxic); Z79.899 Other long term (current) drug therapy; Z20.828 Contact with and (suspected) exposure to other viral communicable diseases
CPT/HCPCS: 0241U; 36415; 36600; 71250; 73060; 80053; 81001; 82375; 82803; 82947; 83036; 83605; 83735; 83880; 84132; 84145; 84484; 85025; 87040; 87077; 87086; 87186; 93005; 93041; 94640; 94667; 94668; 94760; 94762; 96365; 99285; Q3014; J0456; J1335; J1644; J1817; J1956; J2920; J3480; A9270-GY

== ENCOUNTER 2023-05-05 21:02 | Observation (INO) | payer MEDICARE ==
[2023-05-05 21:40] LABS: Absolute Neutrophil Ct (ANC) 9.56 x10^3/uL (1.4-6.9); BASOPHIL % 0.4 % (0.0-0.4); Basophil (Absolute #) 0.06 x10^3/uL (0-0.4); Eosinophil % 1.7 % (0.00-5.0); Eosinophil (Absolute #) 0.23 x10^3/uL (0-0.5); Hematocrit 35.9 % (35-47); Hemoglobin 11.1 g/dL (12.0-16.0); IMMATURE GRAN # 0.25 x10^3u/L (0.00-0.03); IMMATURE GRAN % 1.8 % (0.00-0.4); Lymphocyte (Absolute #) 2.34 x10^3/uL (1.0-4.6); Mean Cell Volume 100.6 fL (78-100); Mean Corpuscular Hemoglobin 31.1 pg (26-32); Mean Corpuscular Hgb Concent. 30.9 g/dL (32-36); Mean Platelet Volume 10.7 fL (7.5-11.0); Monocyte (Absolute #) 1.29 x10^3/uL (0.0-1.3); Monocytes % 9.4 % (0.0-12.0); Neutrophil % 69.7 % (36.0-66.0); Platelet Count 186 x10^3/uL (150-450); Red Blood Count 3.57 x10^6/uL (4.1-5.4); Red Cell Distribution Width 14.1 % (11.5-14.0); White Blood Count 13.7 x10^3/uL (4.0-10.5)
[2023-05-05 21:53] LABS: ALBUMIN 3.7 g/dL (3.5-5.0); ANION GAP 12.9 MEQ/L (5-15); BILIRUBIN,TOTAL 0.3 mg/dL (0.2-1.3); Creatinine 1 1.54 mg/dL (0.52-1.04); EST GLOMERULAR FILTRATION RATE 33.7 ML/MIN; Potassium 4.3 mmol/L (3.5-5.1); Total Protein 6.3 g/dL (6.3-8.2)
--- NOTE | 2023-05-05 22:16 | ERPHSYRPT ---
- History of Present Illness Time Seen by Provider: 05/05/23 21:30 Source: patient Exam Limitations: no limitations Patient Subjective Stated Complaint: headache with a sharp shooting pain to left posterior head Triage Nursing Assessment: Pt ambulated into ER using her cane without difficulty. Daughter at bedside. Pt is alert and oriented x4, pleasant, cooperative. Pt was playing cards with her daughter and experienced a sudden, sharp pain to the posterior left side of head and then developed a headache. Pt denies headache at this time or any head pain. Left eye is bloodshot but pt is unsure when this occured. Pt c/o generalized neck pain and describes it as dull, achy. 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 Physician History: Patient is an 82-year-old female presents to our ED with her daughter for evaluation of acute onset sharp left posterior head pain. Symptoms started toda y while playing cards. Patient states the pain was very intense. The intense pain was then followed by a global headache. Patient states the headache has improved but now complains of a dull neck pain. No trauma no fever. Patient observed that she has a right scleral conjunctival injection. No fever. No nausea no vomiting no diaphoresis. No change in visual acuity. Daughter at bedside. She voices no other complaints or concerns at this time. Portions of this note were created with voice recognition technology. There may be grammatical, spelling, punctuation or sound alike errors Timing/Duration: today Severity: moderate Modifying Factors: Improves With: nothing Associated Symptoms: denies symptoms Allergies/Adverse Reactions: vancomycin Adverse Reaction (Severe, Verified 05/05/23 21:10) pt states causes kidney damage ALLERGIC TO IV ONLY IV contrast dye Adverse Reaction (Severe, Uncoded 04/23/23 13:46) Home Medications: Aspirin EC 81 mg [Ecotrin 81 mg] 81 mg PO DAILY 11/04/18 [History] ALPRAZolam [Alprazolam ER] 1 mg PO BID PRN 07/16/19 [History] Donepezil HCl [Aricept] 5 mg PO DAILY 11/04/21 [History] Ferrous Sulfate [Iron] 325 mg PO BID 11/04/21 [History] Metoprolol Succinate 25 mg Xl* [Toprol-Xl 25MG Tablets] 25 mg PO DAILY 11/04/21 [History] Sertraline HCl 50 mg [Zoloft 50 mg Tablet] 50 mg PO HS 11/04/21 [History] Empagliflozin [Jardiance] 10 mg PO DAILY 04/23/23 [History] Furosemide 40 mg [Lasix 40 MG] 40 mg PO DAILY 04/23/23 [History] Hydrocodone/Acetaminophen [Hydrocodone-Acetamin 5-325 mg] 1 tab PO TIDPRN PRN MDD 3 04/23/23 [History] Potassium Chloride 20 meq PO DAILY 04/23/23 [History] Semaglutide [Ozempic] 0.25 mg SQ WEEKLY 05/05/23 [History] Hx Tetanus, Diphtheria Vaccination/Date Given: Yes Hx Influenza Vaccination/Date Given: No Hx Pneumococcal Vaccination/Date Given: Yes Immunizations Up to Date: No Travel Risk - International Travel Have you traveled outside of the country in past 3 weeks: No - Coronavirus Screening Are you exhibiting any of the following symptoms?: No Close contact with a COVID-19 positive Pt in past 14-21 Days: No - Vaccine Status Have you recieved a Covid-19 vaccination: Yes [employer]: Moderna - Vaccination Dates Date of 2cond Vaccination (if applicable): . - Review of Systems Constitutional: No Symptoms, No Fever, No Chills Eyes: No Symptoms Ears, Nose, & Throat: No Symptoms Respiratory: No Symptoms, No Cough, No Dyspnea Cardiac: No Symptoms, No Chest Pain, No Edema, No Syncope Abdominal/Gastrointestinal: No Symptoms, No Abdominal Pain, No Nausea, No Vomiting, No Diarrhea Genitourinary Symptoms: No Symptoms, No Dysuria Musculoskeletal: No Symptoms, No Back Pain, No Neck Pain Skin: No Symptoms, No Rash Neurological: No Symptoms, No Dizziness, No Focal Weakness, No Sensory Changes Psychological: No Symptoms Endocrine: No Symptoms Hematologic/Lymphatic: No Symptoms Immunological/Allergic: No Symptoms All Other Systems: Reviewed and Negative - Past Medical History Pertinent Past Medical History: Yes Neurological History: No Pertinent History ENT History: Cataracts Cardiac History: Congestive Heart Failure, Hypertension Respiratory History: CHF, COPD, Pneumonia Endocrine Medical History: Diabetes Type II, Other Musculoskeletal History: No Pertinent History GI Medical History: Diverticulitis, Diverticulosis, GERD, Other History: Other Psycho-Social History: Anxiety Female Reproductive Disorders: No Pertinent History Other Medical History: Pt is no longer on dialysis - Past Surgical History Past Surgical History: Yes Neuro Surgical History: No Pertinent History Cardiac: No Pertinent History Respiratory: No Pertinent History Gastrointestinal: Appendectomy, Cholecystectomy, Colon Resection, Hernia Repair Genitourinary: No Pertinent History Musculoskeletal: Joint Replacement, Orthopedic Surgery Female Surgical History: Hysterectomy Other Surgical History: colostomy and reversal, bilateral knee replacement, skin cancer removal from face, right hand surgery Significant Family History: no pertinent family hx - Social History Smoking Status: Former smoker Exposure to second hand smoke: Yes Alcohol Use: None Drug Use: none Patient Lives Alone: No - Nursing Vital Signs Nursing Vital Signs: Initial Vital Signs Temperature 97.5 F 05/05/23 21:18 Pulse Rate 65 05/05/23 21:18 Respiratory Rate 22 05/05/23 21:18 Blood Pressure 161/80 05/05/23 21:18 O2 Sat by Pulse Oximetry 97 05/05/23 21:18 Pain Scale Pain Intensity 0 - Physical Exam General Appearance: no apparent distress, alert Eye Exam: PERRL/EOMI, eyes nml inspection Ears, Nose, Throat Exam: normal ENT inspection, TMs normal, pharynx normal, moist mucous membranes Neck Exam: normal inspection, non-tender, supple, full range of motion Respiratory Exam: normal breath sounds, lungs clear, airway intact, No respiratory distress Cardiovascular Exam: regular rate/rhythm, normal heart sounds, normal peripheral pulses Gastrointestinal/Abdomen Exam: soft, normal bowel sounds, No tenderness, No mass Back Exam: normal inspection, normal range of motion, No CVA tenderness, No vertebral tenderness Extremity Exam: normal inspection, normal range of motion, pelvis stable Neurologic Exam: alert, 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, cooperative, normal mood/affect, sensation nml, No motor deficits Skin Exam: normal color, warm, dry, No rash Lymphatic Exam: No adenopathy SpO2 Interpretation: normal SpO2: 94 O2 Delivery: Room Air - Course Nursing assessment & vital signs reviewed: Yes EKG Interpreted by Me: RATE (61), Sinus Rhythm, LAFB, Right Bundle Branch Block - CT Exams Head CT Interpretation: Tele-radiologist Report (Worsening moderate periventricular degenerative micro ischemia. No new acute findings) Ordered Tests: Active Orders 24 hr Category Date Time Status Engineer Specialist STAT Care 05/05/23 21:32 Active EKG-ER Only STAT Care 05/05/23 21:32 Active IV Insertion STAT Care 05/05/23 21:27 Active POCT Glucose Check STAT Care 05/05/23 21:30 Active Pulse Oximetry (ED) STAT Care 05/05/23 21:32 Active CHEST 1 VIEW (PORTABLE) Stat Exams 05/06/23 01:16 Completed HEAD WITHOUT CONTRAST [CT] Stat Exams 05/05/23 21:12 Taken BNPII [NT PRO BNPII] Stat Lab 05/05/23 21:30 Completed CBC W DIFF Stat Lab 05/05/23 21:20 Completed CMP Stat Lab 05/05/23 21:20 Completed POCT GLUCOSE Stat Lab 05/05/23 21:29 Completed TROPONIN Q4H Lab 05/05/23 21:20 Completed TROPONIN Q4H Lab 05/06/23 00:12 Completed TROPONIN Q4H Lab 05/06/23 05:45 Ordered UA W/RFX UR CULTURE Stat Lab 05/05/23 22:18 Completed Transfer Order Routine Transfer 05/06/23 Ordered Medication Summary Discontinued Medications Generic Name Dose Route Start Last Admin Trade Name Freq PRN Reason Stop Dose Admin Furosemide 40 mg 05/06/23 02:36 Furosemide 40 Mg/4 Ml Vial IV 05/06/23 02:37 STAT ONE Furosemide Confirm 05/06/23 02:55 Furosemide 40 Mg/4 Ml Vial Administered 05/06/23 02:56 Dose 40 mg .ROUTE .STK-MED ONE Lab/Rad Data: Laboratory Result Diagrams 05/05/23 21:20 05/05/23 21:20 Laboratory Results 05/06/23 05/05/23 05/05/23 Range/Units 00:12 22:18 21:30 WBC (4.0-10.5) x10^3/uL RBC (4.1-5.4) x10^6/uL Hgb (12.0-16.0) g/dL Hct (35-47) % MCV (78-100) fL MCH (26-32) pg MCHC (32-36) g/dL RDW (11.5-14.0) % Plt Count (150-450) x10^3/uL MPV (7.5-11.0) fL Gran % (36.0-66.0) % Immature Gran % (Auto) (0.00-0.4) % Nucleat RBC Rel Count (0.00-0.1) % Eos # (Auto) (0-0.5) x10^3/uL Immature Gran # (Auto) (0.00-0.03) x10^3u/L Absolute Lymphs (auto) (1.0-4.6) x10^3/uL Absolute Monos (auto) (0.0-1.3) x10^3/uL Absolute Nucleated RBC (0.00-0.01) x10^3u/L Lymphocytes % (24.0-44.0) % Monocytes % (0.0-12.0) % Eosinophils % (0.00-5.0) % Basophils % (0.0-0.4) % Absolute Granulocytes (1.4-6.9) x10^3/uL Basophils # (0-0.4) x10^3/uL Sodium (135-145) mmol/L Potassium (3.5-5.1) mmol/L Chloride (98-107) mmol/L Carbon Dioxide (22-30) mmol/L Anion Gap (5-15) MEQ/L BUN (7-17) mg/dL Creatinine (0.52-1.04) mg/dL Estimated GFR ML/MIN Glucose (74-106) mg/dL POC Glucometer (74 to 106) mg/dL Calcium (8.4-10.2) mg/dL Total Bilirubin (0.2-1.3) mg/dL AST (14-36) U/L ALT (0-35) U/L Alkaline Phosphatase (38-126) U/L Troponin I 0.028 (0.000-0.034) ng/mL NT-Pro-B Natriuret Pep 54708 (<300) pg/mL Serum Total Protein (6.3-8.2) g/dL Albumin (3.5-5.0) g/dL Urine Color Yellow (Yellow) Urine Appearance Clear (Clear) Urine pH 5.5 (4.6-8.0) Ur Specific [place] 1.025 (1.005-1.030) Urine Protein Negative (Negative) Urine Glucose (UA) >=1000 A (Negative) mg/dL Urine Ketones Negative (Negative) Urine Blood Negative (Negative) Urine Nitrite Negative (Negative) Urine Bilirubin Negative (Negative) Urine Urobilinogen 0.2 (0.2) mg/dL Ur Leukocyte Esterase Negative (Negative) U Hyaline Cast (Auto) NONE SEEN (0-2) /LPF Urine Microscopic RBC 0-2 (0-5) /HPF Urine Microscopic WBC 0-2 (0-5) /HPF Ur Epithelial Cells None Seen (None Seen) /HPF Urine Bacteria None Seen (None Seen) /HPF Urine Culture Reflexed NO (NO) 05/05/23 05/05/23 05/05/23 Range/Units 21:29 21:20 21:20 WBC (4.0-10.5) x10^3/uL RBC (4.1-5.4) x10^6/uL Hgb (12.0-16.0) g/dL Hct (35-47) % MCV (78-100) fL MCH (26-32) pg MCHC (32-36) g/dL RDW (11.5-14.0) % Plt Count (150-450) x10^3/uL MPV (7.5-11.0) fL Gran % (36.0-66.0) % Immature Gran % (Auto) (0.00-0.4) % Nucleat RBC Rel Count (0.00-0.1) % Eos # (Auto) (0-0.5) x10^3/uL Immature Gran # (Auto) (0.00-0.03) x10^3u/L Absolute Lymphs (auto) (1.0-4.6) x10^3/uL Absolute Monos (auto) (0.0-1.3) x10^3/uL Absolute Nucleated RBC (0.00-0.01) x10^3u/L Lymphocytes % (24.0-44.0) % Monocytes % (0.0-12.0) % Eosinophils % (0.00-5.0) % Basophils % (0.0-0.4) % Absolute Granulocytes (1.4-6.9) x10^3/uL Basophils # (0-0.4) x10^3/uL Sodium 144 (135-145) mmol/L Potassium 4.3 (3.5-5.1) mmol/L Chloride 106 (98-107) mmol/L Carbon Dioxide 29 (22-30) mmol/L Anion Gap 12.9 (5-15) MEQ/L BUN 27 H (7-17) mg/dL Creatinine 1.54 H (0.52-1.04) mg/dL Estimated GFR 33.7 ML/MIN Glucose 144 H (74-106) mg/dL POC Glucometer 143 H (74 to 106) mg/dL Calcium 9.0 (8.4-10.2) mg/dL Total Bilirubin 0.30 (0.2-1.3) mg/dL AST 20 (14-36) U/L ALT 18 (0-35) U/L Alkaline Phosphatase 59 (38-126) U/L Troponin I 0.029 (0.000-0.034) ng/mL NT-Pro-B Natriuret Pep (<300) pg/mL Serum Total Protein 6.3 (6.3-8.2) g/dL Albumin 3.7 (3.5-5.0) g/dL Urine Color (Yellow) Urine Appearance (Clear) Urine pH (4.6-8.0) Ur Specific [place] (1.005-1.030) Urine Protein (Negative) Urine Glucose (UA) (Negative) mg/dL Urine Ketones (Negative) Urine Blood (Negative) Urine Nitrite (Negative) Urine Bilirubin (Negative) Urine Urobilinogen (0.2) mg/dL Ur Leukocyte Esterase (Negative) U Hyaline Cast (Auto) (0-2) /LPF Urine Microscopic RBC (0-5) /HPF Urine Microscopic WBC (0-5) /HPF Ur Epithelial Cells (None Seen) /HPF Urine Bacteria (None Seen) /HPF Urine Culture Reflexed (NO) 05/05/23 Range/Units 21:20 WBC 13.7 H (4.0-10.5) x10^3/uL RBC 3.57 L (4.1-5.4) x10^6/uL Hgb 11.1 L (12.0-16.0) g/dL Hct 35.9 (35-47) % MCV 100.6 H (78-100) fL MCH 31.1 (26-32) pg MCHC 30.9 L (32-36) g/dL RDW 14.1 H (11.5-14.0) % Plt Count 186 (150-450) x10^3/uL MPV 10.7 (7.5-11.0) fL Gran % 69.7 H (36.0-66.0) % Immature Gran % (Auto) 1.8 H (0.00-0.4) % Nucleat RBC Rel Count 0.0 (0.00-0.1) % Eos # (Auto) 0.23 (0-0.5) x10^3/uL Immature Gran # (Auto) 0.25 H (0.00-0.03) x10^3u/L Absolute Lymphs (auto) 2.34 (1.0-4.6) x10^3/uL Absolute Monos (auto) 1.29 (0.0-1.3) x10^3/uL Absolute Nucleated RBC 0.00 (0.00-0.01) x10^3u/L Lymphocytes % 17.0 L (24.0-44.0) % Monocytes % 9.4 (0.0-12.0) % Eosinophils % 1.7 (0.00-5.0) % Basophils % 0.4 (0.0-0.4) % Absolute Granulocytes 9.56 H (1.4-6.9) x10^3/uL Basophils # 0.06 (0-0.4) x10^3/uL Sodium (135-145) mmol/L Potassium (3.5-5.1) mmol/L Chloride (98-107) mmol/L Carbon Dioxide (22-30) mmol/L Anion Gap (5-15) MEQ/L BUN (7-17) mg/dL Creatinine (0.52-1.04) mg/dL Estimated GFR ML/MIN Glucose (74-106) mg/dL POC Glucometer (74 to 106) mg/dL Calcium (8.4-10.2) mg/dL Total Bilirubin (0.2-1.3) mg/dL AST (14-36) U/L ALT (0-35) U/L Alkaline Phosphatase (38-126) U/L Troponin I (0.000-0.034) ng/mL NT-Pro-B Natriuret Pep (<300) pg/mL Serum Total Protein (6.3-8.2) g/dL Albumin (3.5-5.0) g/dL Urine Color (Yellow) Urine Appearance (Clear) Urine pH (4.6-8.0) Ur Specific [place] (1.005-1.030) Urine Protein (Negative) Urine Glucose (UA) (Negative) mg/dL Urine Ketones (Negative) Urine Blood (Negative) Urine Nitrite (Negative) Urine Bilirubin (Negative) Urine Urobilinogen (0.2) mg/dL Ur Leukocyte Esterase (Negative) U Hyaline Cast (Auto) (0-2) /LPF Urine Microscopic RBC (0-5) /HPF Urine Microscopic WBC (0-5) /HPF Ur Epithelial Cells (None Seen) /HPF Urine Bacteria (None Seen) /HPF Urine Culture Reflexed (NO) - Progress Progress: improved Progress Note: I spoke to teleneuro at 10:55 PM. The neurologist feels there is no neurologic issue that requires admission or further evaluation. 05/06/23 01:27 Patient complained of shortness of breath. BNP ordered. BNP elevated at 11,500. Chest x-ray reveals worsening pleural effusion. Decreased lung volumes. Daughter at bedside states that they had doctor visit with [place] today. They observed that she gained 7 pounds since her discharge. This is likely water weight. In light of patient's elevated BNP water weight gain and shortness of breath patient will be a admitted for CHF exacerbation. Patient received an additional 40 mg of Lasix. She agrees to admission to [facility] for further evaluation and treatment. Portions of this note were created with voice recognition technology. There may be grammatical, spelling, punctuation or sound alike errors 05/06/23 02:35 Case discussed with hospitalist at 0258. He accepts admission to observation. Portions of this note were created with voice recognition technology. There may be grammatical, spelling, punctuation or sound alike errors Complexity of problem addressed is moderate acute complicated No critical care time Complexity of data reviewed and analyzed extensive. Test ordered test reviewed. Results analyzed and correlated clinically with history and physical examination. Management discussed with hospitalist who accepts admission to observation. Risk of complication and or risk morbidity/mortality patient management is high. Patient requires hospitalization for further evaluation and treatment. Vital stable. Time spent to admit patient is approximately 20 minutes. Plan of care established for shared decision making. No social determinants of health present impede follow-up. Portions of this note were created with voice recognition technology. There may be grammatical, spelling, punctuation or sound alike errors 05/06/23 03:02 Counseled pt/family regarding: lab results, diagnosis, rad results - Departure Departure Disposition: Observation Clinical Impression: Chronic renal insufficiency, Headache, Macrocytic anemia, CHF (congestive heart failure), Elevated brain natriuretic peptide (BNP) level Condition: Stable Critical Care Time: No Referrals: FRANKI TOBAR MD [Primary Care Provider] - Follow up/PCP as directed Instructions: Heart Failure
[2023-05-05 22:29] LABS: Appearance Clear (Clear); Bacteria None Seen /HPF (None Seen); Bilirubin Negative (Negative); Blood Negative (Negative); Epithelial Cells None Seen /HPF (None Seen); Glucose, Urine >=1000 mg/dL (Negative); Hyaline Casts NONE SEEN /LPF (0-2); Ketones Negative (Negative); Leukocyte Esterase Negative (Negative); Nitrite Negative (Negative); Ph 5.5 (4.6-8.0); Protein,Urine Dip Negative (Negative); RBC 0-2 /HPF (0-5); Specific Gravity 1.025 (1.005-1.030); Urobilinogen 0.2 mg/dL (0.2)
[2023-05-05 22:30] LABS: ADD URINE CULTURE? NO (NO); WBC 0-2 /HPF (0-5)
--- NOTE | 2023-05-06 02:18 | XRAY ---
CLINICAL HISTORY: elevated bnp TECHNIQUE: X-ray chest AP portable1 view. COMPARISON: Dated: 04/23/2023 CXR chest FINDINGS: Low lung volume could be due to poor inspiratory effort. The apparent increased cardiothoracic ratio is possibly accentuated by the patient's position Left upper lung lobe calcified nodule. Right lower lung lobe small nodular opacity. Bilateral lower lung zones at atelectatic plates. Obscured left costophrenic angle, worrisomeof pleural effusion. The opacity at the right cardiophrenic angle could be a fat pad/normal diaphragmatic variant. Prominent perihilar bronchovascular markings. Right diaphragmatic hump. Visualized bones are intact. 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 IMPRESSION: 1. Obscured left costophrenic angle, worrisome of pleural effusion. advise clinical correlation. 2. The rest of the study show a stationary course. Electronically Signed by: Luis Alberto Hinojosa MD. (05/06/2023 02:14:47 EDT)
[2023-05-06] MEDS ORDERED: Lasix 40 MG/4 ML ONE (02:55)
[2023-05-06] MEDS ORDERED: HUMALOG SQ PRN (02:57)
[2023-05-06] MEDS ORDERED: TYLENOL 325 MG PO PRN (02:57)
[2023-05-06] MEDS: Lasix 40 MG/4 ML IV ONE (03:02)
--- NOTE | 2023-05-06 03:10 | PCM.HP ---
History of Present Illness - Chief Complaint Chief Complaint: Acute on chronic diastolic CHF Date: 05/06/23 History of Present Illness: 82-year-old woman with a history of diastolic heart failure, COPD on 2 L oxygen at night, CKD stage III (baseline creatinine 1.4), DM2, HTN, GERD, and anxiety, who initially presented with headache, and the complaint of dyspnea. Patient's initial presenting complaint was sudden onset of left-sided severe posterior headache, but CT head was negative, and teleneurology evaluation showed no indication for further workup. However, patient was also complaining of a few weeks of dyspnea, worse with exertion, and noted that at her PCP visit today, she had gained 7 lbs. Associated with abdominal distention, but no pedal edema. Denies orthopnea or PND. Patient was discharged from this hospital 9 days ago after an admission for UTI, and dyspnea, reported COPD exacerbation. She was given a course of antibiotics and steroids, but also had her Lasix and hydrochlorothiazide/losartan held at that time. Patient has been instructed to continue holding diuretics until she had follow-up with nephrology. In the ED, she was noted to have worsening pulmonary vascular markings as well as possible small left pleural effusion, and elevation of BNP from 700 last week to 11,000 today. She was given Lasix 40 mg IV, and is being admitted for acute on chronic diastolic heart failure exacerbation. - Review of Systems Constitutional: No Fever, No Chills Eyes: No Symptoms Ears, Nose, & Throat: No Throat Pain, No Throat Swelling Respiratory: Short Of Breath (worse with exertion), No Cough, No Orthopnea, No Wheezing Cardiac: Edema (abdominal), No Chest Pain, No Orthopnea, No PND Abdominal/Gastrointestinal: No Abdominal Pain, No Nausea, No Vomiting Genitourinary Symptoms: Dysuria, No Frequency All Other Systems: Reviewed and Negative Medications & Allergies Home Medications: Home Medication List Aspirin EC 81 mg [Ecotrin 81 mg] 81 mg PO DAILY 11/04/18 [History Confirmed 05/05/23] ALPRAZolam [Alprazolam ER] 1 mg PO BID PRN 07/16/19 [History Confirmed 05/05/23] Donepezil HCl [Aricept] 5 mg PO DAILY 11/04/21 [History Confirmed 05/05/23] Ferrous Sulfate [Iron] 325 mg PO BID 11/04/21 [History Confirmed 05/05/23] Metoprolol Succinate 25 mg Xl* [Toprol-Xl 25MG Tablets] 25 mg PO DAILY 11/04/21 [History Confirmed 05/05/23] Sertraline HCl 50 mg [Zoloft 50 mg Tablet] 50 mg PO HS 11/04/21 [History Confirmed 05/05/23] Empagliflozin [Jardiance] 10 mg PO DAILY 04/23/23 [History Confirmed 05/05/23] Furosemide 40 mg [Lasix 40 MG] 40 mg PO DAILY 04/23/23 [History Confirmed 05/05/23] Hydrocodone/Acetaminophen [Hydrocodone-Acetamin 5-325 mg] 1 tab PO TIDPRN PRN MDD 3 04/23/23 [History Confirmed 05/05/23] Potassium Chloride 20 meq PO DAILY 04/23/23 [History Confirmed 05/05/23] Semaglutide [Ozempic] 0.25 mg SQ WEEKLY 05/05/23 [History Confirmed 05/05/23] Allergies/Adverse Reactions: Allergies Allergy/AdvReac Type Severity Reaction Status Date / Time vancomycin AdvReac Severe Verified 05/05/23 21:10 IV contrast dye AdvReac Severe Uncoded 04/23/23 13:46 - Past Medical History Past Medical History: Yes Neurological History: No Pertinent History ENT History: Cataracts Cardiac History: Congestive Heart Failure, Hypertension Respiratory History: CHF, COPD, Pneumonia Endocrine Medical History: Diabetes Type II, Other Musculoskelatal History: No Pertinent History GI Medical History: Diverticulitis, Diverticulosis, GERD, Other History: Other Pyscho-Social History: Anxiety Reproductive Disorders: No Pertinent History Comment: Pt is no longer on dialysis - Past Surgical History Past Surgical History: Yes Neuro Surgical History: No Pertinent History Cardiac History: No Pertinent History Respiratory Surgery: No Pertinent History GI Surgical History: Appendectomy, Cholecystectomy, Colon Resection, Hernia Repair Genitourinary Surgical Hx: No Pertinent History Musculskeletal Surgical Hx: Joint Replacement, Orthopedic Surgery Female Surgical History: Hysterectomy Other Surgical History: colostomy and reversal, bilateral knee replacement, skin cancer removal from face, right hand surgery Significant Family History: no pertinent family hx - Social History Smoking Status: Former smoker Exposure to second hand smoke: Yes Alcohol: None Drug Use: none - Social Determinants of Health Will the patient participate in the screening: Yes Do you worry about a steady place to live?: No In the past 12 months,have you had to go without utilities?: No Have you or anyone in your house had to go without enough: No Transportation Issues: No Has anyone in your support network made you feel unsafe?: No Does the patient want assistance with any of the above?: Yes Comment: HELP WITH MOLD REMOVAL - Physical Exam Vital Signs: Vital Signs - 24 hr Temp Pulse Resp BP BP Pulse Ox 05/06/23 02:36 94 L 05/06/23 02:00 57 L 12 134/62 95 05/06/23 01:30 54 L 16 127/60 96 05/06/23 01:00 53 L 12 149/70 95 05/06/23 00:30 64 19 150/71 93 L 05/06/23 00:00 56 L 13 153/74 93 L 05/05/23 23:31 54 L 13 155/76 96 05/05/23 23:00 56 L 21 152/75 94 L 05/05/23 22:31 58 L 17 154/71 95 05/05/23 22:00 60 27 H 134/69 97 05/05/23 21:34 96 05/05/23 21:30 61 20 151/68 94 L 05/05/23 21:18 97.5 F 65 22 161/80 97 General Appearance: no apparent distress Neurologic Exam: alert, 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, cooperative Eye Exam: eyes nml inspection Respiratory Exam: normal breath sounds, No accessory muscle use, No prolonged expirations, No crackles/rales, No rhonchi, No wheezing Cardiovascular Exam: regular rate/rhythm, normal heart sounds, No murmur, No edema Gastrointestinal/Abdomen Exam: soft, No tenderness, No distention Results - Labs Lab/Micro Results: Lab Results-Last 24 Hours 05/05/23 05/05/23 05/05/23 Range/Units 21:20 21:20 21:20 WBC 13.7 H (4.0-10.5) x10^3/uL RBC 3.57 L (4.1-5.4) x10^6/uL Hgb 11.1 L (12.0-16.0) g/dL Hct 35.9 (35-47) % MCV 100.6 H (78-100) fL MCH 31.1 (26-32) pg MCHC 30.9 L (32-36) g/dL RDW 14.1 H (11.5-14.0) % Plt Count 186 (150-450) x10^3/uL MPV 10.7 (7.5-11.0) fL Gran % 69.7 H (36.0-66.0) % Immature Gran % (Auto) 1.8 H (0.00-0.4) % Nucleat RBC Rel Count 0.0 (0.00-0.1) % Eos # (Auto) 0.23 (0-0.5) x10^3/uL Immature Gran # (Auto) 0.25 H (0.00-0.03) x10^3u/L Absolute Lymphs (auto) 2.34 (1.0-4.6) x10^3/uL Absolute Monos (auto) 1.29 (0.0-1.3) x10^3/uL Absolute Nucleated RBC 0.00 (0.00-0.01) x10^3u/L Lymphocytes % 17.0 L (24.0-44.0) % Monocytes % 9.4 (0.0-12.0) % Eosinophils % 1.7 (0.00-5.0) % Basophils % 0.4 (0.0-0.4) % Absolute Granulocytes 9.56 H (1.4-6.9) x10^3/uL Basophils # 0.06 (0-0.4) x10^3/uL Sodium 144 (135-145) mmol/L Potassium 4.3 (3.5-5.1) mmol/L Chloride 106 (98-107) mmol/L Carbon Dioxide 29 (22-30) mmol/L Anion Gap 12.9 (5-15) MEQ/L BUN 27 H (7-17) mg/dL Creatinine 1.54 H (0.52-1.04) mg/dL Estimated GFR 33.7 ML/MIN Glucose 144 H (74-106) mg/dL POC Glucometer (74 to 106) mg/dL Calcium 9.0 (8.4-10.2) mg/dL Total Bilirubin 0.30 (0.2-1.3) mg/dL AST 20 (14-36) U/L ALT 18 (0-35) U/L Alkaline Phosphatase 59 (38-126) U/L Troponin I 0.029 (0.000-0.034) ng/mL NT-Pro-B Natriuret Pep (<300) pg/mL Serum Total Protein 6.3 (6.3-8.2) g/dL Albumin 3.7 (3.5-5.0) g/dL Urine Color (Yellow) Urine Appearance (Clear) Urine pH (4.6-8.0) Ur Specific Jay Em (1.005-1.030) Urine Protein (Negative) Urine Glucose (UA) (Negative) mg/dL Urine Ketones (Negative) Urine Blood (Negative) Urine Nitrite (Negative) Urine Bilirubin (Negative) Urine Urobilinogen (0.2) mg/dL Ur Leukocyte Esterase (Negative) U Hyaline Cast (Auto) (0-2) /LPF Urine Microscopic RBC (0-5) /HPF Urine Microscopic WBC (0-5) /HPF Ur Epithelial Cells (None Seen) /HPF Urine Bacteria (None Seen) /HPF Urine Culture Reflexed (NO) 05/05/23 05/05/23 05/05/23 Range/Units 21:29 21:30 22:18 WBC (4.0-10.5) x10^3/uL RBC (4.1-5.4) x10^6/uL Hgb (12.0-16.0) g/dL Hct (35-47) % MCV (78-100) fL MCH (26-32) pg MCHC (32-36) g/dL RDW (11.5-14.0) % Plt Count (150-450) x10^3/uL MPV (7.5-11.0) fL Gran % (36.0-66.0) % Immature Gran % (Auto) (0.00-0.4) % Nucleat RBC Rel Count (0.00-0.1) % Eos # (Auto) (0-0.5) x10^3/uL Immature Gran # (Auto) (0.00-0.03) x10^3u/L Absolute Lymphs (auto) (1.0-4.6) x10^3/uL Absolute Monos (auto) (0.0-1.3) x10^3/uL Absolute Nucleated RBC (0.00-0.01) x10^3u/L Lymphocytes % (24.0-44.0) % Monocytes % (0.0-12.0) % Eosinophils % (0.00-5.0) % Basophils % (0.0-0.4) % Absolute Granulocytes (1.4-6.9) x10^3/uL Basophils # (0-0.4) x10^3/uL Sodium (135-145) mmol/L Potassium (3.5-5.1) mmol/L Chloride (98-107) mmol/L Carbon Dioxide (22-30) mmol/L Anion Gap (5-15) MEQ/L BUN (7-17) mg/dL Creatinine (0.52-1.04) mg/dL Estimated GFR ML/MIN Glucose (74-106) mg/dL POC Glucometer 143 H (74 to 106) mg/dL Calcium (8.4-10.2) mg/dL Total Bilirubin (0.2-1.3) mg/dL AST (14-36) U/L ALT (0-35) U/L Alkaline Phosphatase (38-126) U/L Troponin I (0.000-0.034) ng/mL NT-Pro-B Natriuret Pep 60842 (<300) pg/mL Serum Total Protein (6.3-8.2) g/dL Albumin (3.5-5.0) g/dL Urine Color Yellow (Yellow) Urine Appearance Clear (Clear) Urine pH 5.5 (4.6-8.0) Ur Specific Jay Em 1.025 (1.005-1.030) Urine Protein Negative (Negative) Urine Glucose (UA) >=1000 A (Negative) mg/dL Urine Ketones Negative (Negative) Urine Blood Negative (Negative) Urine Nitrite Negative (Negative) Urine Bilirubin Negative (Negative) Urine Urobilinogen 0.2 (0.2) mg/dL Ur Leukocyte Esterase Negative (Negative) U Hyaline Cast (Auto) NONE SEEN (0-2) /LPF Urine Microscopic RBC 0-2 (0-5) /HPF Urine Microscopic WBC 0-2 (0-5) /HPF Ur Epithelial Cells None Seen (None Seen) /HPF Urine Bacteria None Seen (None Seen) /HPF Urine Culture Reflexed NO (NO) 05/06/23 Range/Units 00:12 WBC (4.0-10.5) x10^3/uL RBC (4.1-5.4) x10^6/uL Hgb (12.0-16.0) g/dL Hct (35-47) % MCV (78-100) fL MCH (26-32) pg MCHC (32-36) g/dL RDW (11.5-14.0) % Plt Count (150-450) x10^3/uL MPV (7.5-11.0) fL Gran % (36.0-66.0) % Immature Gran % (Auto) (0.00-0.4) % Nucleat RBC Rel Count (0.00-0.1) % Eos # (Auto) (0-0.5) x10^3/uL Immature Gran # (Auto) (0.00-0.03) x10^3u/L Absolute Lymphs (auto) (1.0-4.6) x10^3/uL Absolute Monos (auto) (0.0-1.3) x10^3/uL Absolute Nucleated RBC (0.00-0.01) x10^3u/L Lymphocytes % (24.0-44.0) % Monocytes % (0.0-12.0) % Eosinophils % (0.00-5.0) % Basophils % (0.0-0.4) % Absolute Granulocytes (1.4-6.9) x10^3/uL Basophils # (0-0.4) x10^3/uL Sodium (135-145) mmol/L Potassium (3.5-5.1) mmol/L Chloride (98-107) mmol/L Carbon Dioxide (22-30) mmol/L Anion Gap (5-15) MEQ/L BUN (7-17) mg/dL Creatinine (0.52-1.04) mg/dL Estimated GFR ML/MIN Glucose (74-106) mg/dL POC Glucometer (74 to 106) mg/dL Calcium (8.4-10.2) mg/dL Total Bilirubin (0.2-1.3) mg/dL AST (14-36) U/L ALT (0-35) U/L Alkaline Phosphatase (38-126) U/L Troponin I 0.028 (0.000-0.034) ng/mL NT-Pro-B Natriuret Pep (<300) pg/mL Serum Total Protein (6.3-8.2) g/dL Albumin (3.5-5.0) g/dL Urine Color (Yellow) Urine Appearance (Clear) Urine pH (4.6-8.0) Ur Specific Jay Em (1.005-1.030) Urine Protein (Negative) Urine Glucose (UA) (Negative) mg/dL Urine Ketones (Negative) Urine Blood (Negative) Urine Nitrite (Negative) Urine Bilirubin (Negative) Urine Urobilinogen (0.2) mg/dL Ur Leukocyte Esterase (Negative) U Hyaline Cast (Auto) (0-2) /LPF Urine Microscopic RBC (0-5) /HPF Urine Microscopic WBC (0-5) /HPF Ur Epithelial Cells (None Seen) /HPF Urine Bacteria (None Seen) /HPF Urine Culture Reflexed (NO) Accuchecks Date 05/05/23 Time 21:29 - Radiology Impressions Radiology Exams & Impressions: Radiology Procedures Category Date Time Status CHEST 1 VIEW (PORTABLE) Stat Exams 05/06/23 01:16 Completed HEAD WITHOUT CONTRAST [CT] Stat Exams 05/05/23 21:12 Taken Chest x-ray overall low lung volumes, and bronchovascular crowding from this might be masking cephalization of pulmonary edema. Left cardiophrenic angle is obscured, consistent with pleural effusion, although not well-visualized. (Images personally reviewed.) CT head results not currently available, but per report, no acute findings, only worsening of chronic microvascular ischemic changes. Assessment/Plan (1) Acute on chronic diastolic heart failure Current Visit: Yes Status: Acute Assessment & Plan: 82-year-old woman with a history of HFpEF, CKD 3, COPD, DM2, HTN, here with acute on chronic diastolic heart failure. ## Acute on chronic diastolic heart failure with 7 lb weight gain in the last week, pulmonary edema, dyspnea, and increase in BNP from baseline of 700 to 11,000. Most likely this is due to to patient holding her diuretics, per MD instruction, since her discharge on 04/26 because of prior BRANDEN on CKD. Her BRANDEN has resolved, and she is now back to her baseline creatinine level. Given Lasix 40 mg IV in the ED Will continue Lasix 40 mg IV BID Continue home KCl 20 mEq daily Admit under observation, monitor on telemetry Follow potassium, magnesium, and creatinine levels 2 g sodium diet No echo, as last one was done on 03/04/2023, confirmed EF 60% ## CKD stage III baseline creatinine is 1.4. She was up to 1.8 during her last admission, and her diuretics were held. However, she is now back to her baseline of 1.4-1.5. Of note, her home medications also include Jardiance, which is relatively contraindicated with her stage of CKD. Continue holding losartan and HCTZ Follow creatinine carefully while restarting furosemide Consider holding Jardiance in the future if creatinine does not improve ## DM2 with hemoglobin A1c of 7.1 this month. On Jardiance and Ozempic at h ome. Place on low-dose sliding scale insulin (due to age, CKD, no baseline insulin usage) ## COPD at baseline, patient is on 2 L oxygen at night and PRN. Current dyspnea appears to be more due to CHF as above. Follow oxygen ## Leukocytosis secondary to prior course of steroids, and WBC is decreased from discharge last week. Follow CBC ## Generalized anxiety disorder well-controlled Continue sertraline 50 QHS, on PRN Xanax CODE STATUS: Full code Prophylaxis: Heparin Diet: Diabetic, 2 g sodium Code(s): I50.33 - ACUTE ON CHRONIC DIASTOLIC (CONGESTIVE) HEART FAILURE Telemedicine Encounter - Telemedicine Encounter Telemedicine Encounter: The entirety of this encounter was performed via Telemedicine"
[2023-05-06] MEDS ORDERED: NORCO 5/325 MG PO PRN (05:04)
[2023-05-06] MEDS ORDERED: XANAX 1 MG PO PRN (07:10)
[2023-05-06 08:01] LABS: Absolute Neutrophil Ct (ANC) 9.78 x10^3/uL (1.4-6.9); BASOPHIL % 0.3 % (0.0-0.4); Basophil (Absolute #) 0.04 x10^3/uL (0-0.4); Eosinophil % 2.3 % (0.00-5.0); Eosinophil (Absolute #) 0.32 x10^3/uL (0-0.5); Hematocrit 36.4 % (35-47); Hemoglobin 11.4 g/dL (12.0-16.0); IMMATURE GRAN % 1.4 % (0.00-0.4); Lymphocyte (Absolute #) 2.43 x10^3/uL (1.0-4.6); Lymphocytes % 17.3 % (24.0-44.0); Mean Cell Volume 98.9 fL (78-100); Mean Corpuscular Hgb Concent. 31.3 g/dL (32-36); Mean Platelet Volume 10.8 fL (7.5-11.0); Monocytes % 9.2 % (0.0-12.0); Neutrophil % 69.5 % (36.0-66.0); Platelet Count 194 x10^3/uL (150-450); Red Blood Count 3.68 x10^6/uL (4.1-5.4); White Blood Count 14.1 x10^3/uL (4.0-10.5)
[2023-05-06 08:14] LABS: ALBUMIN 3.9 g/dL (3.5-5.0); ANION GAP 12.8 MEQ/L (5-15); BILIRUBIN,TOTAL 0.5 mg/dL (0.2-1.3); Calcium 9.3 mg/dL (8.4-10.2); Creatinine 1 1.53 mg/dL (0.52-1.04); Total Protein 6.5 g/dL (6.3-8.2)
--- NOTE | 2023-05-06 08:36 | XRAY ---
Indication: Headache. Multiple contiguous axial images obtained through the head without contrast. Comparison: September 25, 2020 Again age-appropriate global atrophy with progressive worsening moderate periventricular degenerative micro-ischemia bilaterally. No acute intracranial hemorrhage, abnormal extra-axial fluid collection, or mass effect. Fourth ventricle is midline without hydrocephalus. Bony calvarium intact. Visualized paranasal sinuses and mastoid air cells are clear. Impression: Nonacute senile brain.
[2023-05-06] MEDS: ECOTRIN 81 MG PO SCH (09:38)
[2023-05-06] MEDS: Aricept 10 MG PO SCH (09:39)
[2023-05-06] MEDS: Klor Con PO SCH (09:39)
[2023-05-06] MEDS: FEOSOL 325 MG PO SCH (09:39)
[2023-05-06] MEDS: Toprol-Xl 25MG Tablets PO SCH (09:39)
[2023-05-06] MEDS: Lasix 40 MG/4 ML IV SCH (09:40)
[2023-05-06] MEDS: HEPARIN 5000 UNITS/0.5 ML (HIGH RISK MED) SQ SCH (09:40)
[2023-05-06] MEDS: ZOLOFT 50 MG TABLET PO SCH (22:32)
[2023-05-07 05:18] LABS: Absolute Neutrophil Ct (ANC) 8.36 x10^3/uL (1.4-6.9); BASOPHIL % 0.4 % (0.0-0.4); Basophil (Absolute #) 0.05 x10^3/uL (0-0.4); Eosinophil % 1.9 % (0.00-5.0); Eosinophil (Absolute #) 0.23 x10^3/uL (0-0.5); Hematocrit 33.5 % (35-47); Hemoglobin 10.3 g/dL (12.0-16.0); IMMATURE GRAN # 0.13 x10^3u/L (0.00-0.03); IMMATURE GRAN % 1.1 % (0.00-0.4); Lymphocyte (Absolute #) 2.25 x10^3/uL (1.0-4.6); Lymphocytes % 18.4 % (24.0-44.0); Mean Cell Volume 99.7 fL (78-100); Mean Corpuscular Hemoglobin 30.7 pg (26-32); Mean Corpuscular Hgb Concent. 30.7 g/dL (32-36); Mean Platelet Volume 11.1 fL (7.5-11.0); Monocytes % 9.8 % (0.0-12.0); Neutrophil % 68.4 % (36.0-66.0); Platelet Count 181 x10^3/uL (150-450); Red Blood Count 3.36 x10^6/uL (4.1-5.4); Red Cell Distribution Width 14.2 % (11.5-14.0); White Blood Count 12.2 x10^3/uL (4.0-10.5)
[2023-05-07 05:31] LABS: ALBUMIN 3.4 g/dL (3.5-5.0); ANION GAP 10.6 MEQ/L (5-15); BILIRUBIN,TOTAL 0.4 mg/dL (0.2-1.3); Calcium 8.6 mg/dL (8.4-10.2); Creatinine 1 1.9 mg/dL (0.52-1.04); EST GLOMERULAR FILTRATION RATE 26.2 ML/MIN; Potassium 3.8 mmol/L (3.5-5.1); Total Protein 5.8 g/dL (6.3-8.2)
--- NOTE | 2023-05-07 09:50 | PCM.NOTE ---
Date and Time: 05/07/23 0949 Subjective Assessment: Patient feels much better today. There is no lower extremity edema. Held lasix this morning due to increasing creatinine. - Review of Systems Constitutional: No Fever, No Chills Eyes: No Symptoms Ears, Nose, & Throat: No Symptoms Respiratory: No Cough, No Short Of Breath Cardiac: No Chest Pain, No Edema, No Syncope Abdominal/Gastrointestinal: No Abdominal Pain, No Nausea, No Vomiting, No Diarrhea Genitourinary Symptoms: No Dysuria Musculoskeletal: No Back Pain, No Neck Pain Skin: No Rash Neurological: No Dizziness, No Focal Weakness, No Sensory Changes Psychological: No Symptoms Endocrine: No Symptoms Hematologic/Lymphatic: No Symptoms Immunological/Allergic: No Symptoms Objective Exam General Appearance: no apparent distress, alert Neurologic Exam: alert, 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, cooperative, normal mood/affect, nml cerebellar function, sensation nml, No motor deficits Skin Exam: normal color, warm, dry Eye Exam: PERRL, EOMI, eyes nml inspection Ears, Nose, Throat Exam: normal ENT inspection, pharynx normal, moist mucous membranes Neck Exam: normal inspection, non-tender, supple, full range of motion Respiratory Exam: normal breath sounds, lungs clear, No respiratory distress Cardiovascular Exam: regular rate/rhythm, normal heart sounds, No edema Gastrointestinal/Abdomen Exam: soft, No tenderness, No mass Extremity Exam: normal inspection, normal range of motion Back Exam: normal inspection, normal range of motion, No CVA tenderness, No vertebral tenderness Pelvic Exam: deferred Rectal Exam: deferred Objective Data Vital Signs: Vital Signs - 24 hr Temp Pulse Resp BP Pulse Ox 05/07/23 08:11 98 05/07/23 07:14 97.1 F 67 17 131/58 95 05/07/23 00:00 98.4 F 65 16 132/61 97 05/06/23 20:16 97.4 F 64 15 120/57 94 L 05/06/23 19:52 94 L 05/06/23 16:26 96.1 F 67 18 147/64 94 L 05/06/23 11:25 97.5 F 66 16 132/66 97 Pain Assessment - Last Documented Pain Intensity 0 Intake and Output: Intake & Output 05/04/23 05/05/23 05/06/23 05/07/23 11:59 11:59 11:59 11:59 Intake Total 240 1140 Output Total 1671 5486 Balance -3635 -1010 Weight 115.7 kg 115.3 kg Lab Results: Lab Results-Last 24 Hours 05/06/23 05/06/23 05/06/23 Range/Units 11:00 16:04 22:02 WBC (4.0-10.5) x10^3/uL RBC (4.1-5.4) x10^6/uL Hgb (12.0-16.0) g/dL Hct (35-47) % MCV (78-100) fL MCH (26-32) pg MCHC (32-36) g/dL RDW (11.5-14.0) % Plt Count (150-450) x10^3/uL MPV (7.5-11.0) fL Gran % (36.0-66.0) % Immature Gran % (Auto) (0.00-0.4) % Nucleat RBC Rel Count (0.00-0.1) % Eos # (Auto) (0-0.5) x10^3/uL Immature Gran # (Auto) (0.00-0.03) x10^3u/L Absolute Lymphs (auto) (1.0-4.6) x10^3/uL Absolute Monos (auto) (0.0-1.3) x10^3/uL Absolute Nucleated RBC (0.00-0.01) x10^3u/L Lymphocytes % (24.0-44.0) % Monocytes % (0.0-12.0) % Eosinophils % (0.00-5.0) % Basophils % (0.0-0.4) % Absolute Granulocytes (1.4-6.9) x10^3/uL Basophils # (0-0.4) x10^3/uL Sodium (135-145) mmol/L Potassium (3.5-5.1) mmol/L Chloride (98-107) mmol/L Carbon Dioxide (22-30) mmol/L Anion Gap (5-15) MEQ/L BUN (7-17) mg/dL Creatinine (0.52-1.04) mg/dL Estimated GFR ML/MIN Glucose (74-106) mg/dL POC Glucometer 136 H 136 H 158 H (74 to 106) mg/dL Calcium (8.4-10.2) mg/dL Total Bilirubin (0.2-1.3) mg/dL AST (14-36) U/L ALT (0-35) U/L Alkaline Phosphatase (38-126) U/L Serum Total Protein (6.3-8.2) g/dL Albumin (3.5-5.0) g/dL 05/07/23 05/07/23 05/07/23 Range/Units 04:15 04:15 06:50 WBC 12.2 H (4.0-10.5) x10^3/uL RBC 3.36 L (4.1-5.4) x10^6/uL Hgb 10.3 L (12.0-16.0) g/dL Hct 33.5 L (35-47) % MCV 99.7 (78-100) fL MCH 30.7 (26-32) pg MCHC 30.7 L (32-36) g/dL RDW 14.2 H (11.5-14.0) % Plt Count 181 (150-450) x10^3/uL MPV 11.1 H (7.5-11.0) fL Gran % 68.4 H (36.0-66.0) % Immature Gran % (Auto) 1.1 H (0.00-0.4) % Nucleat RBC Rel Count 0.0 (0.00-0.1) % Eos # (Auto) 0.23 (0-0.5) x10^3/uL Immature Gran # (Auto) 0.13 H (0.00-0.03) x10^3u/L Absolute Lymphs (auto) 2.25 (1.0-4.6) x10^3/uL Absolute Monos (auto) 1.20 (0.0-1.3) x10^3/uL Absolute Nucleated RBC 0.00 (0.00-0.01) x10^3u/L Lymphocytes % 18.4 L (24.0-44.0) % Monocytes % 9.8 (0.0-12.0) % Eosinophils % 1.9 (0.00-5.0) % Basophils % 0.4 (0.0-0.4) % Absolute Granulocytes 8.36 H (1.4-6.9) x10^3/uL Basophils # 0.05 (0-0.4) x10^3/uL Sodium 141 (135-145) mmol/L Potassium 3.8 (3.5-5.1) mmol/L Chloride 102 (98-107) mmol/L Carbon Dioxide 32 H (22-30) mmol/L Anion Gap 10.6 (5-15) MEQ/L BUN 34 H (7-17) mg/dL Creatinine 1.90 H (0.52-1.04) mg/dL Estimated GFR 26.2 ML/MIN Glucose 124 H (74-106) mg/dL POC Glucometer 120 H (74 to 106) mg/dL Calcium 8.6 (8.4-10.2) mg/dL Total Bilirubin 0.40 (0.2-1.3) mg/dL AST 16 (14-36) U/L ALT 15 (0-35) U/L Alkaline Phosphatase 56 (38-126) U/L Serum Total Protein 5.8 L (6.3-8.2) g/dL Albumin 3.4 L (3.5-5.0) g/dL Radiology Exams: Radiology Procedures Category Date Time Status CHEST 1 VIEW (PORTABLE) Stat Exams 05/06/23 01:16 Completed HEAD WITHOUT CONTRAST [CT] Stat Exams 05/05/23 21:12 Completed Assessment/Plan (1) Acute on chronic diastolic heart failure Current Visit: Yes Status: Acute Assessment & Plan: 82-year-old woman with a history of HFpEF, CKD 3, COPD, DM2, HTN, here with acute on chronic diastolic heart failure. ## Acute on chronic diastolic heart failure with 7 lb weight gain in the last week, pulmonary edema, dyspnea, and increase in BNP from baseline of 700 to 11,000. Most likely this is due to to patient holding her diuretics, per MD instruction, since her discharge on 04/26 because of prior BRANDEN on CKD. Her BRANDEN had resolved, and she was was back to her baseline creatinine level on admission. Started on lasix 40 mg IV BID but will hold todays doses due to increasing creatinine. Expect patient to be discharge tomorrow on oral lasix if creatinine stable/decreasing. Continue home KCl 20 mEq daily Admit under observation, monitor on telemetry Follow potassium, magnesium, and creatinine levels 2 g sodium diet No echo, as last one was done on 03/04/2023, confirmed EF 60% Code(s): I50.33 - ACUTE ON CHRONIC DIASTOLIC (CONGESTIVE) HEART FAILURE (2) Chronic renal insufficiency Current Visit: Yes Status: Chronic Assessment & Plan: ## CKD stage III baseline creatinine is 1.4. She was up to 1.8 during her last admission, and her diuretics were held. She is again up to 1.9 with diuresis. Will hold of on further IV lasix. Of note, her home medications also include Jardiance, which is relatively contraindicated with her stage of CKD. Continue holding lasix, losartan and HCTZ Follow up BMP tomorrow Consider holding Jardiance in the future if creatinine does not improve Code(s): N18.9 - CHRONIC KIDNEY DISEASE, UNSPECIFIED (3) Diabetes mellitus Current Visit: No Status: Chronic Qualifiers: Diabetes mellitus type: type 2 Assessment & Plan: ## DM2 with hemoglobin A1c of 7.1 this month. On Jardiance and Ozempic at home. Place on low-dose sliding scale insulin (due to age, CKD, no baseline insulin usage) Code(s): E11.9 - TYPE 2 DIABETES MELLITUS WITHOUT COMPLICATIONS (4) COPD (chronic obstructive pulmonary disease) Current Visit: No Status: Acute Qualifiers: COPD type: COPD with acute exacerbation Qualified Code(s): J44.1 - Chronic obstructive pulmonary disease with (acute) exacerbation Assessment & Plan: ## COPD at baseline, patient is on 2 L oxygen at night and PRN. Current dyspnea appears to be more due to CHF as above. Follow oxygen (5) Leukocytosis Current Visit: No Status: Acute Assessment & Plan: ## Leukocytosis secondary to prior course of steroids, and WBC is decreased from discharge last week. Follow CBC Code(s): D72.829 - ELEVATED WHITE BLOOD CELL COUNT, UNSPECIFIED (6) Generalized anxiety disorder Current Visit: Yes Status: Acute Assessment & Plan: ## Generalized anxiety disorder well-controlled Continue sertraline 50 QHS, on PRN Xanax Code(s): F41.1 - GENERALIZED ANXIETY DISORDER Telemedicine Encounter - Telemedicine Encounter Telemedicine Encounter: The entirety of this encounter was performed via Telemedicine"
[2023-05-08 04:57] LABS: Absolute Neutrophil Ct (ANC) 8.17 x10^3/uL (1.4-6.9); BASOPHIL % 0.4 % (0.0-0.4); Basophil (Absolute #) 0.05 x10^3/uL (0-0.4); Eosinophil % 2.1 % (0.00-5.0); Eosinophil (Absolute #) 0.24 x10^3/uL (0-0.5); Hematocrit 31.6 % (35-47); Hemoglobin 9.9 g/dL (12.0-16.0); IMMATURE GRAN # 0.09 x10^3u/L (0.00-0.03); IMMATURE GRAN % 0.8 % (0.00-0.4); Lymphocyte (Absolute #) 1.84 x10^3/uL (1.0-4.6); Lymphocytes % 16.1 % (24.0-44.0); Mean Cell Volume 99.1 fL (78-100); Mean Corpuscular Hgb Concent. 31.3 g/dL (32-36); Mean Platelet Volume 11.1 fL (7.5-11.0); Monocyte (Absolute #) 1.01 x10^3/uL (0.0-1.3); Monocytes % 8.9 % (0.0-12.0); Neutrophil % 71.7 % (36.0-66.0); Platelet Count 159 x10^3/uL (150-450); Red Blood Count 3.19 x10^6/uL (4.1-5.4); Red Cell Distribution Width 14.2 % (11.5-14.0); White Blood Count 11.4 x10^3/uL (4.0-10.5)
[2023-05-08 05:11] LABS: ALBUMIN 3.2 g/dL (3.5-5.0); ANION GAP 9.7 MEQ/L (5-15); BILIRUBIN,TOTAL 0.4 mg/dL (0.2-1.3); Calcium 8.4 mg/dL (8.4-10.2); Creatinine 1 1.59 mg/dL (0.52-1.04); EST GLOMERULAR FILTRATION RATE 32.4 ML/MIN; Potassium 3.9 mmol/L (3.5-5.1); Total Protein 5.4 g/dL (6.3-8.2)
[2023-05-08 07:09] VITALS: PULSE 69
--- NOTE | 2023-05-08 09:37 | PCM.DS ---
Discharge Summary Date of Admission: 05/06/23 03:14 Date of Discharge: 05/08/23 Admitting Physician: ANKIT BARRIOS MD Primary Care Provider: FRANKI TOBAR Allergies Allergies vancomycin Adverse Reaction (Severe, Verified 05/05/23 21:10) pt states causes kidney damage ALLERGIC TO IV ONLY IV contrast dye Adverse Reaction (Severe, Uncoded 04/23/23 13:46) Hospital Summary - Hospital Course Hospital Course: 82-year-old woman with a history of diastolic heart failure, COPD on 2 L oxygen at night, CKD stage III (baseline creatinine 1.4), DM2, HTN, GERD, and anxiety, who initially presented with headache, and the complaint of dyspnea. Patient's initial presenting complaint was sudden onset of left-sided severe posterior headache, but CT head was negative, and teleneurology evaluation showed no indication for further workup. However, patient was also complaining of a few weeks of dyspnea, worse with exertion, and noted that at her PCP visit today, she had gained 7 lbs. Associated with abdominal distention, but no pedal edema. Denies orthopnea or PND. Patient was discharged from this hospital 9 days ago after an admission for UTI, and dyspnea, reported COPD exacerbation. She was given a course of antibiotics and steroids, but also had her Lasix and hydrochlorothiazide/losartan held at that time. Patient has been instructed to continue holding diuretics until she had follow-up with nephrology which she had missed her follow up appointment. In the ED, she was noted to have worsening pulmonary vascular markings as well as possible small left pleural effusion, and elevation of BNP from 700 last week to 11,000 on admission . Admitted for acute on chronic diastolic heart failure exacerbation. IP treatment with Lasix 40 mg IV. Dyspnea has improved, now at baseline oxygen of 3L. Effective diuresis with 6.4 pound weight loss. Patient did have BRANDEN with diuresis, but is now back at baseline. Patient will resume home dose of lasix. 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 Discharge Note New Diagnosis: CHF exacerbation New Medications: none Follow Up: PCP/Cards/Nephrology Latest Assessment & Plan (1) Acute on chronic diastolic heart failure Current Visit: Yes Status: Acute Assessment & Plan: 82-year-old woman with a history of HFpEF, CKD 3, COPD, DM2, HTN, here with acute on chronic diastolic heart failure. ## Acute on chronic diastolic heart failure with 7 lb weight gain in the last week, pulmonary edema, dyspnea, and increase in BNP from baseline of 700 to 11,000. Most likely this is due to to patient holding her diuretics, per MD instruction, since her discharge on 04/26 because of prior BRANDEN on CKD. Her BRANDEN has resolved, and she is now back to her baseline creatinine level. Given Lasix 40 mg IV in the ED Will continue Lasix 40 mg IV BID Continue home KCl 20 mEq daily Admit under observation, monitor on telemetry Follow potassium, magnesium, and creatinine levels 2 g sodium diet No echo, as last one was done on 03/04/2023, confirmed EF 60% ## CKD stage III baseline creatinine is 1.4. She was up to 1.8 during her last admission, and her diuretics were held. However, she is now back to her baseline of 1.4-1.5. Of note, her home medications also include Jardiance, which is relatively contraindicated with her stage of CKD. Continue holding losartan and HCTZ Follow creatinine carefully while restarting furosemide Consider holding Jardiance in the future if creatinine does not improve ## DM2 with hemoglobin A1c of 7.1 this month. On Jardiance and Ozempic at home. Place on low-dose sliding scale insulin (due to age, CKD, no baseline insulin usage) ## COPD at baseline, patient is on 2 L oxygen at night and PRN. Current dyspnea appears to be more due to CHF as above. Follow oxygen ## Leukocytosis secondary to prior course of steroids, and WBC is decreased from discharge last week. Follow CBC ## Generalized anxiety disorder well-controlled Continue sertraline 50 QHS, on PRN Xanax I spent 35 minutes [id number] with the patient on the day of discharge per forming discharge exam, discussing hospital stay and discharge instructions with patient and caregivers, preparation of discharge records, prescriptions & referral forms and addressing any questions/concerns the patient had as documented above. - Vitals & Intake/Output Vital Signs: Vital Signs Temperature 97.3 F 05/08/23 07:08 Pulse Rate 69 05/08/23 07:08 Respiratory Rate 28 H 05/08/23 07:08 Blood Pressure 151/66 05/08/23 07:08 O2 Sat by Pulse Oximetry 98 05/08/23 07:08 Intake & Output: Intake & Output 05/05/23 05/06/23 05/07/23 05/08/23 11:59 11:59 11:59 11:59 Intake Total 240 1140 1460 Output Total 3878 2150 800 Balance -3355 -1010 660 Weight 115.7 kg 115.3 kg 116.5 kg - Lab Result Diagrams: 05/08/23 04:05 05/08/23 04:05 Lab Results-Last 24 Hrs: Lab Results-Last 24 Hours 05/07/23 05/07/23 05/07/23 Range/Units 11:30 16:00 20:27 WBC (4.0-10.5) x10^3/uL RBC (4.1-5.4) x10^6/uL Hgb (12.0-16.0) g/dL Hct (35-47) % MCV (78-100) fL MCH (26-32) pg MCHC (32-36) g/dL RDW (11.5-14.0) % Plt Count (150-450) x10^3/uL MPV (7.5-11.0) fL Gran % (36.0-66.0) % Immature Gran % (Auto) (0.00-0.4) % Nucleat RBC Rel Count (0.00-0.1) % Eos # (Auto) (0-0.5) x10^3/uL Immature Gran # (Auto) (0.00-0.03) x10^3u/L Absolute Lymphs (auto) (1.0-4.6) x10^3/uL Absolute Monos (auto) (0.0-1.3) x10^3/uL Absolute Nucleated RBC (0.00-0.01) x10^3u/L Lymphocytes % (24.0-44.0) % Monocytes % (0.0-12.0) % Eosinophils % (0.00-5.0) % Basophils % (0.0-0.4) % Absolute Granulocytes (1.4-6.9) x10^3/uL Basophils # (0-0.4) x10^3/uL Sodium (135-145) mmol/L Potassium (3.5-5.1) mmol/L Chloride (98-107) mmol/L Carbon Dioxide (22-30) mmol/L Anion Gap (5-15) MEQ/L BUN (7-17) mg/dL Creatinine (0.52-1.04) mg/dL Estimated GFR ML/MIN Glucose (74-106) mg/dL POC Glucometer 135 H 155 H 185 H (74 to 106) mg/dL Calcium (8.4-10.2) mg/dL Total Bilirubin (0.2-1.3) mg/dL AST (14-36) U/L ALT (0-35) U/L Alkaline Phosphatase (38-126) U/L Serum Total Protein (6.3-8.2) g/dL Albumin (3.5-5.0) g/dL 05/08/23 05/08/23 05/08/23 Range/Units 04:05 04:05 06:38 WBC 11.4 H (4.0-10.5) x10^3/uL RBC 3.19 L (4.1-5.4) x10^6/uL Hgb 9.9 L (12.0-16.0) g/dL Hct 31.6 L (35-47) % MCV 99.1 (78-100) fL MCH 31.0 (26-32) pg MCHC 31.3 L (32-36) g/dL RDW 14.2 H (11.5-14.0) % Plt Count 159 (150-450) x10^3/uL MPV 11.1 H (7.5-11.0) fL Gran % 71.7 H (36.0-66.0) % Immature Gran % (Auto) 0.8 H (0.00-0.4) % Nucleat RBC Rel Count 0.0 (0.00-0.1) % Eos # (Auto) 0.24 (0-0.5) x10^3/uL Immature Gran # (Auto) 0.09 H (0.00-0.03) x10^3u/L Absolute Lymphs (auto) 1.84 (1.0-4.6) x10^3/uL Absolute Monos (auto) 1.01 (0.0-1.3) x10^3/uL Absolute Nucleated RBC 0.00 (0.00-0.01) x10^3u/L Lymphocytes % 16.1 L (24.0-44.0) % Monocytes % 8.9 (0.0-12.0) % Eosinophils % 2.1 (0.00-5.0) % Basophils % 0.4 (0.0-0.4) % Absolute Granulocytes 8.17 H (1.4-6.9) x10^3/uL Basophils # 0.05 (0-0.4) x10^3/uL Sodium 139 (135-145) mmol/L Potassium 3.9 (3.5-5.1) mmol/L Chloride 103 (98-107) mmol/L Carbon Dioxide 31 H (22-30) mmol/L Anion Gap 9.7 (5-15) MEQ/L BUN 37 H (7-17) mg/dL Creatinine 1.59 H (0.52-1.04) mg/dL Estimated GFR 32.4 ML/MIN Glucose 122 H (74-106) mg/dL POC Glucometer 101 (74 to 106) mg/dL Calcium 8.4 (8.4-10.2) mg/dL Total Bilirubin 0.40 (0.2-1.3) mg/dL AST 15 (14-36) U/L ALT 14 (0-35) U/L Alkaline Phosphatase 58 (38-126) U/L Serum Total Protein 5.4 L (6.3-8.2) g/dL Albumin 3.2 L (3.5-5.0) g/dL Micro Results-Entire Visit: Accuchecks Date 05/08/23 Date 05/07/2305/07/23 Date 05/07/23 Time 07:07 Time 20:45 - Procedures and Test Procedures and Tests throughout Hospitalization: Therapy Orders & Screens 05/06/23 04:36 RT Screen per Nursing Assess ONCE Comment: Protocol Order Physician Instructions: Greater than 3 points order RT Admission Screen Reason For Exam: Triggered on Admission Diagnosis: CHF, elevated BNP, shortness of breath Diagnosis: CHF, elevated BNP, shortness of breath Pneumonia: No Home O2: Yes Asthma: No CHF: Yes Home CPAP/BIPAP: No Home Nebs/MDI: No Total Points: 8 05/06/23 05:06 Oxygen Nasal Cannula 2 lpm Comment: Diagnosis: Acute on chronic diastolic CHF Discharge Exam General Appearance: no apparent distress Neurologic Exam: alert, 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, cooperative Eye Exam: PERRL Ears, Nose, Throat Exam: normal ENT inspection Neck Exam: normal inspection Respiratory Exam: diminished breath sounds, crackles/rales Cardiovascular Exam: regular rate/rhythm, normal heart sounds Gastrointestinal/Abdomen Exam: soft, normal bowel sounds Pelvic Exam: deferred Rectal Exam: deferred Back Exam: normal inspection Extremity Exam: normal inspection Skin Exam: normal color Final Diagnosis/Problem List - Final Discharge Diagnosis/Problem (1) Acute on chronic diastolic heart failure Current Visit: Yes Status: Acute Code(s): I50.33 - ACUTE ON CHRONIC DIASTOLIC (CONGESTIVE) HEART FAILURE (2) Acute on chronic renal failure Current Visit: Yes Status: Acute Code(s): N17.9 - ACUTE KIDNEY FAILURE, UNS PECIFIED; N18.9 - CHRONIC KIDNEY DISEASE, UNSPECIFIED (3) Generalized anxiety disorder Current Visit: Yes Status: Chronic Code(s): F41.1 - GENERALIZED ANXIETY DISORDER (4) COPD (chronic obstructive pulmonary disease) Current Visit: No Status: Chronic (5) Leukocytosis Current Visit: No Status: Resolved Code(s): D72.829 - ELEVATED WHITE BLOOD CELL COUNT, UNSPECIFIED (6) Diabetes mellitus Current Visit: Yes Status: Chronic Code(s): E11.9 - TYPE 2 DIABETES MELLITUS WITHOUT COMPLICATIONS (7) Chronic kidney disease Current Visit: Yes Status: Chronic Code(s): N18.9 - CHRONIC KIDNEY DISEASE, UNSPECIFIED - Discharge Disposition: HOME HEALTH SERVICE Condition: Stable Prescriptions: Continue Aspirin EC 81 mg [Ecotrin 81 mg] 81 mg PO DAILY ALPRAZolam [Alprazolam ER] 1 mg PO BID PRN Sertraline HCl 50 mg [Zoloft 50 mg Tablet] 50 mg PO HS Metoprolol Succinate 25 mg Xl* [Toprol-Xl 25MG Tablets] 25 mg PO DAILY Ferrous Sulfate [Iron] 325 mg PO BID Donepezil HCl [Aricept] 5 mg PO DAILY Hydrocodone/Acetaminophen [Hydrocodone-Acetamin 5-325 mg] 1 tab PO TIDPRN PRN MDD 3 PRN Reason: Pain Empagliflozin [Jardiance] 10 mg PO DAILY Potassium Chloride 20 meq PO DAILY Semaglutide [Ozempic] 0.25 mg SQ WEEKLY Discontinued Furosemide 40 mg [Lasix 40 MG] 40 mg PO DAILY Additional Instructions: [facility] HAS BEEN SET [facility] FOR YOU. THEY WILL CALL YOU TO ARRANGE A TIME TO COME SEE YOU. THEIR PHONE NUMBER IS [phone] IF YOU NEED ANYTHING BEFORE THEIR FIRST VISIT Follow up with: FRANKI TOBAR MD [Primary Care Provider] - 05/21/23 11:00 am
[2023-05-08 11:25] VITALS: BP 111/57; RESP 16; TEMP 96; O2SAT 95
== END 2023-05-08 11:45 | disposition home health service (06) ==
LOC: ED 21:02 → MED SURG 05-06 03:14
PROVIDERS: ADMIT Internal Medicine; ATTEND Internal Medicine
DX: E11.22 Type 2 diabetes mellitus with diabetic chronic kidney disease (principal); I13.0 Hypertensive heart and chronic kidney disease with heart failure and stage 1 through stage 4 chronic kidney disease, or unspecified chronic kidney disease; I50.33 Acute on chronic diastolic (congestive) heart failure; N17.9 Acute kidney failure, unspecified; N18.9 Chronic kidney disease, unspecified; F41.1 Generalized anxiety disorder; J44.9 Chronic obstructive pulmonary disease, unspecified; D72.829 Elevated white blood cell count, unspecified; E11.9 Type 2 diabetes mellitus without complications; R60.0 Localized edema; K21.9 Gastro-esophageal reflux disease without esophagitis; Z79.899 Other long term (current) drug therapy; Z20.828 Contact with and (suspected) exposure to other viral communicable diseases; Z99.81 Dependence on supplemental oxygen; Z77.120 Contact with and (suspected) exposure to mold (toxic)
CPT/HCPCS: 36000; 36415; 70450; 71045; 80053; 81001; 82947; 83880; 84484; 85025; 93005; 93041; 93268; 94760; 96374; 99285; G0378; Q3014; 86701; 86702; 87535; J1644; J1940; A9270-GY

== ENCOUNTER 2023-08-09 08:45 | Emergency (ER) | payer MEDICARE ==
[2023-08-09 08:58] VITALS: TEMP 98
--- NOTE | 2023-08-09 09:30 | ERPHSYRPT ---
- History of Present Illness Time Seen by Provider: 08/09/23 09:26 Historian: patient, family Exam Limitations: no limitations Patient Subjective Stated Complaint: pt here for right sided abd pain since this am, was seen thursday and dx wiht UTI. has not started antiboitcs Triage Nursing Assessment: pt alert, arrived per wc, resp easy, skin w/d/p, abd soft but tender to right side.moves all ext well Physician History: Patient is 83-year-old female with significant past medical history of morbid obesity type 2 diabetes hypertension vascular dementia has a history of recurrent urinary tract infection. She was recently diagnosed with urinary tract infection and culture did show Proteus mirabilis as well as history of coli and was only sensitive to meropenem. So see saw farmer [employer] and he is a advised patient to get 14 days treatment for meropenem but her insurance did not cover it and required so patient is awaiting for authorization. Meanwhile she started having more and more symptoms with abdominal pain nausea and now abdominal pain is more concentrated on the right groin and right costovertebral angle area. She is complaining of decreasing urine output. She denies any fever but she complains of weakness. Timing/Duration: day(s) (2-3 days) Quality: cramping Abdominal Pain Onset Location: RLQ Pain Radiation: groin Severity of Pain-Max: moderate Severity of Pain-Current: moderate Modifying Factors: Improves With: nothing Associated Symptoms: denies symptoms Previous symptoms: no prior history Allergies/Adverse Reactions: vancomycin Adverse Reaction (Severe, Verified 08/09/23 08:55) pt states causes kidney damage ALLERGIC TO IV ONLY IV contrast dye Adverse Reaction (Severe, Uncoded 08/09/23 08:55) Home Medications: Aspirin EC 81 mg [Ecotrin 81 mg] 81 mg PO DAILY 11/04/18 [History] ALPRAZolam [Alprazolam ER] 1 mg PO BID PRN 07/16/19 [History] Donepezil HCl [Aricept] 5 mg PO DAILY 11/04/21 [History] Ferrous Sulfate [Iron] 325 mg PO BID 11/04/21 [History] Metoprolol Succinate 25 mg Xl* [Toprol-Xl 25MG Tablets] 25 mg PO DAILY 11/04/21 [History] Sertraline HCl 50 mg [Zoloft 50 mg Tablet] 50 mg PO HS 11/04/21 [History] Empagliflozin [Jardiance] 10 mg PO DAILY 04/23/23 [History] Hydrocodone/Acetaminophen [Hydrocodone-Acetamin 5-325 mg] 1 tab PO TIDPRN PRN MDD 3 04/23/23 [History] Potassium Chloride 20 meq PO DAILY 04/23/23 [History] Semaglutide [Ozempic] 0.25 mg SQ WEEKLY 05/05/23 [History] Empagliflozin [Jardiance] 1 ea DAILY 08/09/23 [History] Hx Tetanus, Diphtheria Vaccination/Date Given: Yes Hx Influenza Vaccination/Date Given: No Hx Pneumococcal Vaccination/Date Given: Yes Immunizations Up to Date: Yes Travel Risk - International Travel Have you traveled outside of the country in past 3 weeks: No - Emerging Infectious Disease Are you exhibiting symptoms associated with any current EIDs: Yes Symptoms: Abdominal Pain - Review of Systems Constitutional: No Fever, No Chills Eyes: No Symptoms Ears, Nose, & Throat: No Symptoms Respiratory: No Cough, No Dyspnea Cardiac: No Chest Pain, No Edema, No Syncope Abdominal/Gastrointestinal: Abdominal Pain (right lower quadrant), No Nausea, No Vomiting, No Diarrhea Genitourinary Symptoms: No Dysuria Musculoskeletal: No Back Pain, No Neck Pain Skin: No Rash Neurological: No Dizziness, No Focal Weakness, No Sensory Changes Psychological: No Symptoms Endocrine: No Symptoms All Other Systems: Reviewed and Negative - Past Medical History Pertinent Past Medical History: Yes Neurological History: No Pertinent History ENT History: Cataracts Cardiac History: Congestive Heart Failure, Hypertension Respiratory History: CHF, COPD, Pneumonia Endocrine Medical History: Diabetes Type II, Other Musculoskeletal History: No Pertinent History GI Medical History: Diverticulitis, Diverticulosis, GERD, Other History: Other Psycho-Social History: Anxiety Female Reproductive Disorders: No Pertinent History Other Medical History: Pt is no longer on dialysis - Past Surgical History Past Surgical History: Yes Neuro Surgical History: No Pertinent History Cardiac: No Pertinent History Respiratory: No Pertinent History Gastrointestinal: Appendectomy, Cholecystectomy, Colon Resection, Hernia Repair Genitourinary: No Pertinent History Musculoskeletal: Joint Replacement, Orthopedic Surgery Female Surgical History: Hysterectomy Other Surgical History: colostomy and reversal, bilateral knee replacement, skin cancer removal from face, right hand surgery Significant Family History: no pertinent family hx - Social History Smoking Status: Former smoker Exposure to second hand smoke: Yes Alcohol Use: None Drug Use: none Patient Lives Alone: No - Social Determinants of Health Will the patient participate in the screening: Yes Do you worry about a steady place to live?: No Do you have any problems with any of the following?: Mold In the past 12 months,have you had to go without utilities?: No Transportation Issues: No Has anyone in your support network made you feel unsafe?: No Have you or anyone in your house had to go without enough: No Comment: HELP WITH MOLD REMOVAL - Nursing Vital Signs Nursing Vital Signs: Initial Vital Signs Temperature 98.0 F 08/09/23 08:57 Pulse Rate 62 08/09/23 08:57 Respiratory Rate 20 08/09/23 08:57 Blood Pressure 161/72 08/09/23 08:57 O2 Sat by Pulse Oximetry 93 L 08/09/23 08:57 Pain Scale Pain Intensity 4 - Physical Exam General Appearance: no apparent distress, alert Eye Exam: PERRL/EOMI, eyes nml inspection Ears, Nose, Throat Exam: normal ENT inspection, pharynx normal, moist mucous membranes Neck Exam: normal inspection, non-tender, supple, full range of motion Respiratory Exam: normal breath sounds, lungs clear, No respiratory distress Cardiovascular Exam: regular rate/rhythm, normal heart sounds Gastrointestinal/Abdomen Exam: soft, tenderness (RLQ), No mass Back Exam: normal inspection, normal range of motion, No CVA tenderness, No vertebral tenderness Extremity Exam: normal inspection, normal range of motion, pelvis stable Neurologic Exam: alert, 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, cooperative, normal mood/affect, nml cerebellar function, sensation nml, No motor deficits Skin Exam: normal color, warm, dry SpO2: 93 - Course Nursing assessment & vital signs reviewed: Yes EKG Interpreted by Me: Sinus Rhythm - CT Exams Abdomen/Pelvis CT Interpretation: Tele-radiologist Report Ordered Tests: Active Orders 24 hr Category Date Time Status EKG-ER Only STAT Care 08/09/23 09:12 Active ABDOMEN AND PELVIS W/0 CONTRAS [CT] Stat Exams 08/09/23 09:28 Completed CBC W DIFF Stat Lab 08/09/23 09:50 Completed CMP Stat Lab 08/09/23 09:50 Completed UA W/RFX UR CULTURE Stat Lab 08/09/23 09:13 Ordered Medication Summary Discontinued Medications Generic Name Dose Route Start Last Admin Trade Name Jacey PRN Reason Stop Dose Admin Sodium Chloride 1,000 mls @ 999 mls/hr 08/09/23 09:12 08/09/23 11:03 Sodium Chloride 0.9% 1000 Ml IV 08/09/23 10:12 Infused .Q1H1M STA Infusion Meropenem 1 gm/ Sodium 100 mls @ 200 mls/hr 08/09/23 09:12 08/09/23 09:56 Chloride IV 08/09/23 09:41 200 mls/hr STAT ONE Administration Sodium Chloride Confirm 08/09/23 09:51 Sodium Chloride 100ml Mini-Bag Plus Administered 08/09/23 09:52 Dose 100 mls @ ud IV .STK-MED ONE Sodium Chloride Confirm 08/09/23 09:51 Sodium Chloride 0.9% 1000 Ml Administered 08/09/23 09:52 Dose 1,000 mls @ ud .ROUTE .STK-MED ONE Meropenem Confirm 08/09/23 09:51 Meropenem 1 Gm Vial Administered 08/09/23 09:52 Dose 1 gm IV .STK-MED ONE Morphine Sulfate 4 mg 08/09/23 09:12 08/09/23 09:55 Morphine Sulfate 4 Mg/Ml Injection IV 08/09/23 09:13 4 mg STAT ONE Administration Morphine Sulfate Confirm 08/09/23 09:51 Morphine Sulfate 4 Mg/Ml Injection Administered 08/09/23 09:52 Dose 4 mg .ROUTE .STK-MED ONE Lab/Rad Data: Laboratory Result [facility] 08/09/23 09:50 08/09/23 09:50 Laboratory Results 08/09/23 08/09/23 Range/Units 09:50 09:50 WBC 12.7 H (3.98-10.04) x10^3/uL RBC 3.63 L (3.93-5.22) x10^6/uL Hgb 11.3 (11.2-15.7) g/dL Hct 35.8 (34.1-44.9) % MCV 98.6 H (79.4-94.8) fL MCH 31.1 (25.6-32.2) pg MCHC 31.6 L (32.2-35.5) g/dL RDW 13.5 (11.7-14.4) % Plt Count 227 (182-369) x10^3/uL MPV 11.1 (9.4-12.3) fL Gran % 69.7 (34.0-71.1) % Immature Gran % (Auto) 0.8 H (0.001-0.429) % Nucleat RBC Rel Count 0.0 (0.00-0.2) % Eos # (Auto) 0.18 (0.04-0.36) x10^3/uL Immature Gran # (Auto) 0.10 H (0.001-0.031) x10^3u/L Absolute Lymphs (auto) 2.40 (1.18-3.74) x10^3/uL Absolute Monos (auto) 1.11 H (0.24-0.86) x10^3/uL Absolute Nucleated RBC 0.00 (0.00-0.012) x10^3u/L Lymphocytes % 18.9 L (19.3-51.7) % Monocytes % 8.7 (4.7-12.5) % Eosinophils % 1.4 (0.7-5.8) % Basophils % 0.5 (0.1-1.2) % Absolute Granulocytes 8.88 H (1.56-6.13) x10^3/uL Basophils # 0.06 (0.01-0.08) x10^3/uL Sodium 143 (135-145) mmol/L Potassium 3.7 (3.5-5.1) mmol/L Chloride 107 (98-107) mmol/L Carbon Dioxide 31 H (22-30) mmol/L Anion Gap 8.7 (5-15) MEQ/L BUN 35 H (7-17) mg/dL Creatinine 1.26 H (0.52-1.04) mg/dL Estimated GFR 42.6 ML/MIN Glucose 100 (74-106) mg/dL Calcium 9.5 (8.4-10.2) mg/dL Total Bilirubin 0.30 (0.2-1.3) mg/dL AST 18 (14-36) U/L ALT 16 (0-35) U/L Alkaline Phosphatase 49 (38-126) U/L Serum Total Protein 6.3 (6.3-8.2) g/dL Albumin 3.7 (3.5-5.0) g/dL CT/ABDOMEN AND PELVIS W/0 CONTRAS CLINICAL HISTORY: right lower quadrant pain COMPARISON: CT dated 09/16/[address] chest dated 04/23/2023 were reviewed. TECHNIQUE: CT of the abdomen and pelvis was performed in axial plane with sagittal and coronal reconstructed images without intravenous contrast administration. One of the following dose reduction techniques was utilized for this exam.Automated exposure control, adjustment of the mA and/or kV according to patient size, and use of iterative reconstruction. FINDINGS: Scanned lung bases reveal stable left lower lobar atelectatic band and right basal nodule 4.7 mm in size. The liver is normal in size, morphology and appears unremarkable with no intrahepatic or extrahepatic bile duct dilation. The gall bladder is surgically removed. Unremarkable non-enhanced CT appearance of the spleen, right adrenal gland and pancreas. Possible small 8mm left adrenal lesion (redemonstrated). The right kidney is average in size. Still noted upper polar cyst measuring 50 x 50 mm. No calculi or hydronephrosis. Atrophic left kidney. No calculi or masses. Still noted bilateral perinephric stranding. Average caliber of both ureters. Still noted large anterior abdominal wall subcutaneous fluid collection showing wall thickening and surrounding fatty stranding/smudging. The fluid collection measures about 74 x 90 x 105 mm in AP, transverse and CC dimensions respectively. No suspiciously enlarged mesenteric or retroperitoneal lymph nodes. The small and large bowel loops are of average caliber. The appendix is surgically removed. Few non-complicated colonic diverticula are seen. The urinary bladder is partially filled, possible tiny foci of air is suspected. The uterus is surgically removed. No gross adnexal lesions. Spondylodegenerative changes of the visualized spine, no gross lytic or sclerotic lesions. Still noted atherosclerotic calcifications of the aorta. IMPRESSION: 1. Still noted anterior abdominal wall subcutaneous fluid collection measuring 74 x 90 x 105 mm in AP, transverse and CC dimensions respectively showing wall thickening and surrounding fatty stranding (stable). 2. Atrophic left kidney (stable). 3. Right renal cyst (stable). 4. Possible small 8mm left adrenal lesion (stable). 5. Non-complicated colonic diverticulosis (stable). 6. No significant interval changes. - Progress Progress: unchanged Counseled pt/family regarding: lab results, diagnosis, need for follow-up (Outpa tient IV antibiotic Therapy for 10 days), rad results Medical Desision Making - Independent Historian Additional History obtained from: Family - Diagnostic Testing Diagnostic test were ordered, analyzed, and reviewed by me: Yes Radiological Interpretation: Teleradiologist Report - Risk of complications The pt has a high risk of morbidity or mortality based on: Drug therapy requiring intensive monitoring for toxicity - Departure Departure Disposition: Home Clinical Impression: Pyelonephritis due to Escherichia coli, Abscess of abdominal wall Chronic renal insufficiency Qualifiers: Chronic kidney disease stage: stage 3 (moderate) Chronic kidney disease stage 3 subtype: stage 3b (GFR 30-44) Qualified Code(s): N18.32 - Chronic kidney disease, stage 3b Condition: Stable Critical Care Time: No Referrals: [facility] [Primary Care Provider] - Follow up/PCP as d irected Instructions: Urinary tract infections in adults, Skin abscess Additional Instructions: You have a kidney infection due to history of coli and Proteus mirabilis which of the 2 organism only sensitive to the antibiotic meropenem which we have given you in ER and we have schedule you as an outpatient for next 10 days. You also have a stable anterior abdominal wall abscess which may need drainage. So please follow-up as an outpatient with your primary care physician and let him make an arrangements. The abscess can be drained by radiology department. Follow-up with your primary care physician in next 2 to 3 days. Discharge/Care Plan BEVERLY WALLACE was seen on 08/09/23 in the Emergency Room. The patient was counseled regarding Diagnosis,Lab results, Imaging studies, need for follow up and when to return to the Emergency Room. Prescriptions given: Discharge Note I have spoken with the patient and/or caregivers. I have explained the patient's condition, diagnosis and treatment plan based on the information available to me at this time. I have answered the patient's and/or caregiver's questions and addressed any concerns. The patient and/or caregivers have as good understanding of the patient's diagnosis, condition and treatment plan as can be expected at this point. The vital signs have been stable. The patient's condition is stable and appropriate for discharge from the emergency department. The patient will pursue further outpatient evaluation with the primary care physician or other designated or consulting physician as outlined in the discharge instructions. The patient and/or caregivers are agreeable to this plan of care and follow-up instructions have been explained in detail. The patient and/or caregivers have received these instruction. The patient/and or caregivers are aware that any significant change in condition or worsening of symptoms should prompt an immediate return to this or the closest emergency department or call 911. RODRIGOBEVERLY VISHNU was seen on 08/09/23 n the Emergency Room. At that time you were treated for an emergent condition, during your visit Laboratory, Radiology and/or other procedures may have been ordered. It is very important that you follow-up with your Primary Care Physician [facility] within the next 24-48 hours to review your Emergency Room visit and the final results of testing that was ordered. Some test results such as Urine Cultures, Blood Cultures, and other cultures if ordered will not be finalized for 24-48 hours. If you do not have a Primary Care Provider please call the medical records department at [phone] ext [phone] to obtain a copy of your results or you may sign into our patient portal to obtain these results by visiting us @ [email or web address] and completing the following steps: 1. Click on the Patient Portal link 2. Click the Patient Self Enrollment Link to complete the enrollment form and entering your 3. Once the enrollment form is completed you will receive an email with a temp orary ID and password at the email address you provided. 4. Next choose a user name and password. Your user name must be at least 4 characters long and your password must be at least 4 characters long. 5. Choose a security question from the list and provide your answer to the question. If you already have signed into the Health Portal you may access your Health Care Information 08/09 by the following steps: 1. Login to our website @ [email or web address] 2. Enter your original user name and password. FAQS The [facility] Health Portal is an online tool that contains your Lab Results, Radiology Reports, Visit History, Discharge Instructions and Health Summary Lab and Radiology Results will not be available for 72 hours on the portal. The Portal is a secure site, passwords are encryted and URLs are re-written so they cannot be copied and pasted. You and authorized family members are the only ones who can access your Portal. Also there is a timeout feature that protects your information if you leave the Portal page open. If you have technical difficulty please use the Contact Us link on the page this will allow you to submit any questions you have regarding the Portal or you may contact the Medical Record Department at [phone] ext [phone].
[2023-08-09] MEDS ORDERED: Merrem IV ONE (09:51)
[2023-08-09] MEDS ORDERED: MORPHINE SULFATE 4 MG INJ ONE (09:51)
[2023-08-09] MEDS ORDERED: Sodium Chloride 100ML MINI-BAG PLUS 100 ML IV ONE (09:51)
[2023-08-09] MEDS ORDERED: Sodium Chloride 0.9% 1000 ML 1,000 ML ONE (09:51)
[2023-08-09] MEDS: Sodium Chloride 0.9% 1000 ML 1,000 ML IV STA (09:55)
[2023-08-09] MEDS: MORPHINE SULFATE 4 MG INJ IV ONE (09:55)
[2023-08-09] MEDS: Merrem 1 GM in Sodium Chloride 100ML MINI-BAG PLUS 100 ML IV ONE (09:56)
[2023-08-09 09:58] LABS: Absolute Neutrophil Ct (ANC) 8.88 x10^3/uL (1.56-6.13); BASOPHIL % 0.5 % (0.1-1.2); Basophil (Absolute #) 0.06 x10^3/uL (0.01-0.08); Eosinophil % 1.4 % (0.7-5.8); Eosinophil (Absolute #) 0.18 x10^3/uL (0.04-0.36); Hematocrit 35.8 % (34.1-44.9); Hemoglobin 11.3 g/dL (11.2-15.7); IMMATURE GRAN % 0.8 % (0.001-0.429); Lymphocytes % 18.9 % (19.3-51.7); Mean Cell Volume 98.6 fL (79.4-94.8); Mean Corpuscular Hemoglobin 31.1 pg (25.6-32.2); Mean Corpuscular Hgb Concent. 31.6 g/dL (32.2-35.5); Mean Platelet Volume 11.1 fL (9.4-12.3); Monocyte (Absolute #) 1.11 x10^3/uL (0.24-0.86); Monocytes % 8.7 % (4.7-12.5); Neutrophil % 69.7 % (34.0-71.1); Platelet Count 227 x10^3/uL (182-369); Red Blood Count 3.63 x10^6/uL (3.93-5.22); Red Cell Distribution Width 13.5 % (11.7-14.4); White Blood Count 12.7 x10^3/uL (3.98-10.04)
[2023-08-09 10:18] LABS: ALBUMIN 3.7 g/dL (3.5-5.0); ANION GAP 8.7 MEQ/L (5-15); BILIRUBIN,TOTAL 0.3 mg/dL (0.2-1.3); Calcium 9.5 mg/dL (8.4-10.2); Creatinine 1 1.26 mg/dL (0.52-1.04); EST GLOMERULAR FILTRATION RATE 42.6 ML/MIN; Potassium 3.7 mmol/L (3.5-5.1); Total Protein 6.3 g/dL (6.3-8.2)
--- NOTE | 2023-08-09 10:38 | XRAY ---
CLINICAL HISTORY: right lower quadrant pain COMPARISON: CT dated 09/16/[address] chest dated 04/23/2023 were reviewed. TECHNIQUE: CT of the abdomen and pelvis was performed in axial plane with sagittal and coronal reconstructed images without intravenous contrast administration. One of the following dose reduction techniques was utilized for this exam.Automated exposure control, adjustment of the mA and/or kV according to patient size, and use of iterative reconstruction. FINDINGS: Scanned lung bases reveal stable left lower lobar atelectatic band and right basal nodule 4.7 mm in size. The liver is normal in size, morphology and appears unremarkable with no intrahepatic or extrahepatic bile duct dilation. The gall bladder is surgically removed. Unremarkable non-enhanced CT appearance of the spleen, right adrenal gland and pancreas. Possible small 8mm left adrenal lesion (redemonstrated). The right kidney is average in size. Still noted upper polar cyst measuring 50 x 50 mm. No calculi or hydronephrosis. Atrophic left kidney. No calculi or masses. Still noted bilateral perinephric stranding. Average caliber of both ureters. Still noted large anterior abdominal wall subcutaneous fluid collection showing wall thickening and surrounding fatty stranding/smudging. The fluid collection measures about 74 x 90 x 105 mm in AP, transverse and CC dimensions respectively. No suspiciously enlarged mesenteric or retroperitoneal lymph nodes. The small and large bowel loops are of average caliber. The appendix is surgically removed. Few non-complicated colonic diverticula are seen. The urinary bladder is partially filled, possible tiny foci of air is suspected. The uterus is surgically removed. No gross adnexal lesions. Spondylodegenerative changes of the visualized spine, no gross lytic or sclerotic lesions. Still noted atherosclerotic calcifications of the aorta. IMPRESSION: 1. Still noted anterior abdominal wall subcutaneous fluid collection measuring 74 x 90 x 105 mm in AP, transverse and CC dimensions respectively showing wall thickening and surrounding fatty stranding (stable). 2. Atrophic left kidney (stable). 3. Right renal cyst (stable). 4. Possible small 8mm left adrenal lesion (stable). 5. Non-complicated colonic diverticulosis (stable). 6. No significant interval changes. Electronically Signed by: Luis Alberto Hinojosa MD. (08/09/2023 10:33:18 EDT)
[2023-08-09 11:38] VITALS: BP 149/52; PULSE 60; RESP 16; O2SAT 97
== END 2023-08-09 11:34 | disposition home or self-care (01) ==
LOC: ED 08:45
DX: N12 Tubulo-interstitial nephritis, not specified as acute or chronic (principal); B96.20 Unspecified Escherichia coli [E. coli] as the cause of diseases classified elsewhere; L02.211 Cutaneous abscess of abdominal wall; E11.22 Type 2 diabetes mellitus with diabetic chronic kidney disease; I13.0 Hypertensive heart and chronic kidney disease with heart failure and stage 1 through stage 4 chronic kidney disease, or unspecified chronic kidney disease; N18.32 Chronic kidney disease, stage 3b; R10.9 Unspecified abdominal pain; R53.1 Weakness; Z79.84 Long term (current) use of oral hypoglycemic drugs; Z79.85 Long-term (current) use of injectable non-insulin antidiabetic drugs; Z79.891 Long term (current) use of opiate analgesic; Z79.899 Other long term (current) drug therapy; Z58.89 Other problems related to physical environment
CPT/HCPCS: 36000; 36415; 74176; 80053; 85025; 93005; 96365; 96374; 99284; J2270

== ENCOUNTER 2025-01-12 16:44 | Observation (INO) | payer MEDICARE ==
--- NOTE | 2025-01-12 16:50 | ERPHSYRPT ---
- History of Present Illness Source: patient, family, EMS Exam Limitations: clinical condition Timing/Duration: today Severity: moderate Character of Deficits: none Baseline/Normal Cognition: alert 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 Current Cognition: alert 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 Associated Symptoms: vision changes Hx Tetanus, Diphtheria Vaccination/Date Given: Yes Hx Influenza Vaccination/Date Given: Yes Hx Pneumococcal Vaccination/Date Given: Yes <SHREYA VASQUEZ - Last Filed: 01/12/25 19:17> <FILIBERTO GALO - Last Filed: 01/12/25 22:23> - History of Present Illness Time Seen by Provider: 01/12/25 16:50 Physician History: Pt had onset of symptoms of neck and head pain and blurred vision she has been told are TIAs Discussed with pt and available family risks and benefits of testing/Tx including CBC, CMP, EKG, Trop, BNP, D-dimer, UA, Amylase, Lipase, CT head CTA head and neck and C spine Teleneuro , and they wish to proceed so these are ordered. Results discussed with pt and available family. Pt and family were advised of the limitations of the testing and Tx performed today in this setting and that we have not yet determined a precise cause for their symptoms and there still could be additional pathology of a serious nature evolving undetected. They voice their understanding and wish to choose outpatient f/u rather than further testing in ER or admission to hospital or transfer at this time and they have the capacity to make this choice. (SHREYA VASQUEZ) Allergies/Adverse Reactions: vancomycin Adverse Reaction (Severe, Verified 01/12/25 19:37) pt states causes kidney damage ALLERGIC TO IV ONLY IV contrast dye Adverse Reaction (Severe, Uncoded 01/12/25 19:37) Home Medications: ALPRAZolam [Alprazolam ER] 1 mg PO BID PRN 07/16/19 [History] Donepezil HCl [Aricept] 10 mg PO DAILY 11/04/21 [History] Ferrous Sulfate [Iron] 325 mg PO TID 11/04/21 [History] Metoprolol Succinate 25 mg Xl* [Toprol-Xl 25MG Tablets] 50 mg PO DAILY 11/04/21 [History] Torsemide 20 mg [Demadex 20 mg] 40 mg PO DAILY 09/28/24 [History] Allopurinol 100 mg [Zyloprim 100 mg] 100 mg PO DAILY 01/12/25 [History] Ergocalciferol (Vitamin D2) [Vitamin D2] 1,250 mcg PO WEEKLY 01/12/25 [History] Hydralazine HCl 25 mg PO Q8H 01/12/25 [History] Hydrocodone/Acetaminophen [Hydrocodon-Acetaminophen 5-325] 1 tab PO TID 01/12/25 [History] Losartan Potassium 50 mg [Cozaar 50 MG] 50 mg PO DAILY 01/12/25 [History] Magnesium Oxide 400 mg [Mag-Ox 400] 400 mg PO BID 01/12/25 [History] Oxybutynin Chloride [Oxybutynin Chloride ER] 10 mg PO DAILY 01/12/25 [History] Sertraline HCl 50 mg [Zoloft 50 mg Tablet] 50 mg PO DAILY 01/12/25 [History] Travel Risk - Emerging Infectious Disease Are you exhibiting symptoms associated with any current EIDs: No Symptoms: Abdominal Pain <SHREYA VASQUEZ - Last Filed: 01/12/25 19:17> - Review of Systems Constitutional: No Fever, No Chills Eyes: No Symptoms Ears, Nose, & Throat: No Symptoms Respiratory: No Cough, No Dyspnea Cardiac: No Chest Pain, No Edema, No Syncope Abdominal/Gastrointestinal: No Abdominal Pain, No Nausea, No Vomiting, No Diarrhea Genitourinary Symptoms: No Dysuria Musculoskeletal: No Back Pain, No Neck Pain Skin: No Rash Neurological: No Dizziness, No Focal Weakness, No Sensory Changes Psychological: No Symptoms Endocrine: No Symptoms Hematologic/Lymphatic: No Symptoms Immunological/Allergic: No Symptoms All Other Systems: Reviewed and Negative <SHREYA VASQUEZ - Last Filed: 01/12/25 19:17> - Past Medical History Pertinent Past Medical History: Yes Neurological History: No Pertinent History ENT History: Cataracts Cardiac History: Congestive Heart Failure, Hypertension Respiratory History: CHF, COPD, Pneumonia Endocrine Medical History: Diabetes Type II, Other Musculoskeletal History: No Pertinent History GI Medical History: Other History: Other Psycho-Social History: Anxiety Female Reproductive Disorders: No Pertinent History Other Medical History: Pt is no longer on dialysis - Past Surgical History Past Surgical History: Yes Neuro Surgical History: No Pertinent History Cardiac: No Pertinent History Respiratory: No Pertinent History Gastrointestinal: Appendectomy, Cholecystectomy, Colon Resection, Hernia Repair Genitourinary: No Pertinent History Musculoskeletal: Joint Replacement, Orthopedic Surgery Female Surgical History: Hysterectomy Other Surgical History: colostomy and reversal, bilateral knee replacement, skin cancer removal from face, right hand surgery Significant Family History: no pertinent family hx - Social History Smoking Status: Never smoker Exposure to second hand smoke: Yes Drug Use: none - Social Determinants of Health Will the patient participate in the screening: Yes Do you worry about a steady place to live?: No In the past 12 months,have you had to go without utilities?: No Transportation Issues: No Has anyone in your support network made you feel unsafe?: No Have you or anyone in your house had to go w/o enough food: No <SHREYA VASQUEZ - Last Filed: 01/12/25 19:17> - Gisela Coma Scale Best Eye Response (Gisela): (4) open spontaneously Best Verbal Response (Gisela): (5) oriented Best Motor Response (Gisela): (6) obeys commands Gisela Total: 15 - Physical Exam General Appearance: no apparent distress, alert Eye Exam: bilateral eye: PERRL, EOMI Ears, Nose, Throat Exam: normal ENT inspection, TMs normal, pharynx normal, moist mucous membranes Neck Exam: normal inspection, non-tender, supple Respiratory: normal breath sounds, lungs clear, airway intact, No respiratory distress Cardiovascular: regular rate/rhythm, No edema Gastrointestinal: soft, No tenderness, No distention Pelvic Exam: deferred Rectal Exam: deferred Back Exam: normal inspection Extremity Exam: normal inspection, No pedal edema Peripheral Pulses: carotid (R): 2+, carotid (L): 2+, femoral (R): 2+, femoral (L): 2+, dorsalis-pedis (R): 2+, dorsalis-pedis (L): 2+ Mental Status: alert, 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9 F 01/12/25 16:47 Pulse Rate 77 01/12/25 16:47 Respiratory Rate 11 L 01/12/25 16:47 Blood Pressure 112/57 01/12/25 16:47 O2 Sat by Pulse Oximetry 96 01/12/25 16:47 Pain Scale Pain Intensity 0 - Course Nursing assessment & vital signs reviewed: Yes <SHREYA VASQUEZ - Last Filed: 01/12/25 19:17> Ordered Tests: Active Orders 24 hr Category Date Time Status EKG-ER Only STAT Care 01/12/25 16:59 Completed IV Insertion STAT Care 01/12/25 16:59 Active Pulse Oximetry (ED) STAT Care 01/12/25 16:59 Active Tele-Health Consult ROUTINE Cons 01/12/25 17:[address] ANGIOGRAPHY NECK [CT] Stat Exams 01/12/25 21:35 Completed CTA HEAD W AND/OR WO CONTRAST [CT] Stat Exams 01/12/25 21:37 Completed HEAD WITHOUT CONTRAST [CT] Stat Exams 01/12/25 16:51 Completed CBC W DIFF Stat Lab 01/12/25 17:27 Completed CMP Stat Lab 01/12/25 17:27 Completed CULTURE,URINE Stat Lab 01/12/25 20:17 Received Lactic Acid Stat Lab 01/12/25 17:20 Completed Lactic Acid Stat Lab 01/12/25 19:27 Completed NT PRO BNPII Stat Lab 01/12/25 17:27 Completed TROPONIN Q4H Lab 01/12/25 17:27 Completed TROPONIN Q4H Lab 01/12/25 20:30 Completed TROPONIN Q4H Lab 01/13/25 01:00 Ordered UA W/RFX UR CULTURE Stat Lab 01/12/25 20:17 Completed Medication Summary Generic Name Dose Route Start Last Admin Trade Name Freq PRN Reason Stop Dose Admin Sodium Chloride 1,000 mls @ 100 mls/hr 01/12/25 20:45 01/12/25 20:49 Sodium Chloride 0.9% 1000 Ml IV 02/11/25 20:44 100 mls/hr .Q10H OLGA Administration Discontinued Medications Generic Name Dose Route Start Last Admin Trade Name Jacey PRN Reason Stop Dose Admin Aspirin 81 mg 01/12/25 20:43 01/12/25 20:49 Aspirin 81 Mg Tab.Chew PO 01/12/25 20:44 81 mg STAT ONE Administration Aspirin Confirm 01/12/25 20:47 Aspirin 81 Mg Tab.Chew Administered 01/12/25 20:48 Dose 81 mg .ROUTE .STK-MED ONE Atorvastatin Calcium 40 mg 01/12/25 20:43 01/12/25 20:49 Atorvastatin Calcium 40 Mg Tablet PO 01/12/25 20:44 40 mg STAT STA Administration Atorvastatin Calcium Confirm 01/12/25 20:47 Atorvastatin Calcium 40 Mg Tablet Administered 01/12/25 20:48 Dose 40 mg .ROUTE .STK-MED ONE Methylprednisolone Sodium 0 mg 01/12/25 20:41 01/12/25 20:49 Succinate 125 mg/ Sterile IV 01/12/25 20:42 125 mg Water 2 ml STAT ONE Administration Diphenhydramine HCl 50 mg 01/12/25 20:41 01/12/25 20:50 Diphenhydramine Hcl 50 Mg/Ml Vial IV 01/12/25 20:42 50 mg STAT ONE Administration Diphenhydramine HCl Confirm 01/12/25 20:47 Diphenhydramine Hcl 50 Mg/Ml Vial Administered 01/12/25 20:48 Dose 50 mg .ROUTE .STK-MED ONE Meclizine HCl 12.5 mg 01/12/25 19:53 01/12/25 20:10 Meclizine Hcl 25 Mg Tablet PO 01/12/25 19:54 12.5 mg STAT ONE Administration Meclizine HCl Confirm 01/12/25 20:07 Meclizine Hcl 25 Mg Tablet Administered 01/12/25 20:08 Dose 25 mg .ROUTE .STK-MED ONE Methylprednisolone Sodium Succinate Confirm 01/12/25 20:47 Methylprednis Sod Succ 125 Mg/2 Ml Vial Administered 01/12/25 20:48 Dose 125 mg .ROUTE .STK-MED ONE Sterile Water Confirm 01/12/25 20:47 Water For Injection,Sterile 10 Ml Vial Administered 01/12/25 20:48 Dose 10 ml IJ .STK-MED ONE Lab/Rad Data: Laboratory Result Diagrams 01/12/25 17:27 01/12/25 17:27 Laboratory Results 01/12/25 01/12/25 01/12/25 Range/Units 20:30 20:17 19:27 WBC (3.98-10.04) x10^3/uL RBC (3.93-5.22) x10^6/uL Hgb (11.2-15.7) g/dL Hct (34.1-44.9) % MCV (79.4-94.8) fL MCH (25.6-32.2) pg MCHC (32.2-35.5) g/dL RDW (11.7-14.4) % Plt Count (182-369) x10^3/uL MPV (9.4-12.3) fL Gran % (34.0-71.1) % Immature Gran % (Auto) (0.001-0.429) % Nucleat RBC Rel Count (0.00-0.2) % Eos # (Auto) (0.04-0.36) x10^3/uL Immature Gran # (Auto) (0.001-0.031) x10^3u/L Absolute Lymphs (auto) (1.18-3.74) x10^3/uL Absolute Monos (auto) (0.24-0.86) x10^3/uL Absolute Nucleated RBC (0.00-0.012) x10^3u/L Lymphocytes % (19.3-51.7) % Monocytes % (4.7-12.5) % Eosinophils % (0.7-5.8) % Basophils % (0.1-1.2) % Absolute Granulocytes (1.56-6.13) x10^3/uL Basophils # (0.01-0.08) x10^3/uL Sodium (135-145) mmol/L Potassium (3.5-5.1) mmol/L Chloride (98-107) mmol/L Carbon Dioxide (22-30) mmol/L Anion Gap (5-15) MEQ/L BUN (7-17) mg/dL Creatinine (0.52-1.04) mg/dL Estimated GFR ML/MIN Glucose (74-106) mg/dL Lactic Acid 1.3 (0.4-2.0) Calcium (8.4-10.2) mg/dL Total Bilirubin (0.2-1.3) mg/dL AST (14-36) U/L ALT (0-35) U/L Alkaline Phosphatase (38-126) U/L Troponin I 0.014 (0.000-0.033) ng/mL NT-Pro-B Natriuret Pep (<300) pg/mL Serum Total Protein (6.3-8.2) g/dL Albumin (3.5-5.0) g/dL Urine Color Yellow (Yellow) Urine Appearance Cloudy A (Clear) Urine pH 6.0 (4.6-8.0) Ur Specific [place] 1.020 (1.005-1.030) Urine Protein Trace A (Negative) Urine Glucose (UA) Negative (Negative) mg/dL Urine Ketones Negative (Negative) Urine Blood Negative (Negative) Urine Nitrite Positive A (Negative) Urine Bilirubin Negative (Negative) Urine Urobilinogen 1.0 A (0.2) mg/dL Ur Leukocyte Esterase Moderate A (Negative) U Hyaline Cast (Auto) NONE SEEN (0-2) /LPF Urine Microscopic RBC 0-2 (0-5) /HPF Urine Microscopic WBC 51-100 A (0-5) /HPF Ur Epithelial Cells Rare (None Seen) /HPF Urine Bacteria Many A (None Seen) /HPF Urine Culture Reflexed YES (NO) 01/12/25 01/12/25 01/12/25 Range/Units 17:27 17:27 17:27 WBC 9.9 (3.98-10.04) x10^3/uL RBC 3.98 (3.93-5.22) x10^6/uL Hgb 12.3 (11.2-15.7) g/dL Hct 39.5 (34.1-44.9) % MCV 99.2 H (79.4-94.8) fL MCH 30.9 (25.6-32.2) pg MCHC 31.1 L (32.2-35.5) g/dL RDW 13.2 (11.7-14.4) % Plt Count 222 (182-369) x10^3/uL MPV 10.6 (9.4-12.3) fL Gran % 75.4 H (34.0-71.1) % Immature Gran % (Auto) 0.4 (0.001-0.429) % Nucleat RBC Rel Count 0.0 (0.00-0.2) % Eos # (Auto) 0.22 (0.04-0.36) x10^3/uL Immature Gran # (Auto) 0.04 H (0.001-0.031) x10^3u/L Absolute Lymphs (auto) 1.52 (1.18-3.74) x10^3/uL Absolute Monos (auto) 0.60 (0.24-0.86) x10^3/uL Absolute Nucleated RBC 0.00 (0.00-0.012) x10^3u/L Lymphocytes % 15.3 L (19.3-51.7) % Monocytes % 6.0 (4.7-12.5) % Eosinophils % 2.2 (0.7-5.8) % Basophils % 0.7 (0.1-1.2) % Absolute Granulocytes 7.48 H (1.56-6.13) x10^3/uL Basophils # 0.07 (0.01-0.08) x10^3/uL Sodium 140 (135-145) mmol/L Potassium 4.3 (3.5-5.1) mmol/L Chloride 103 (98-107) mmol/L Carbon Dioxide 24 (22-30) mmol/L Anion Gap 17.1 H (5-15) MEQ/L BUN 30 H (7-17) mg/dL Creatinine 1.45 H (0.52-1.04) mg/dL Estimated GFR 35.8 ML/MIN Glucose 177 H (74-106) mg/dL Lactic Acid (0.4-2.0) Calcium 9.5 (8.4-10.2) mg/dL Total Bilirubin 0.50 (0.2-1.3) mg/dL AST 26 (14-36) U/L ALT 16 (0-35) U/L Alkaline Phosphatase 78 (38-126) U/L Troponin I < 0.012 (0.000-0.033) ng/mL NT-Pro-B Natriuret Pep 412 (<300) pg/mL Serum Total Protein 7.2 (6.3-8.2) g/dL Albumin 4.5 (3.5-5.0) g/dL Urine Color (Yellow) Urine Appearance (Clear) Urine pH (4.6-8.0) Ur Specific [place] (1.005-1.030) Urine Protein (Negative) Urine Glucose (UA) (Negative) mg/dL Urine Ketones (Negative) Urine Blood (Negative) Urine Nitrite (Negative) Urine Bilirubin (Negative) Urine Urobilinogen (0.2) mg/dL Ur Leukocyte Esterase (Negative) U Hyaline Cast (Auto) (0-2) /LPF Urine Microscopic RBC (0-5) /HPF Urine Microscopic WBC (0-5) /HPF Ur Epithelial Cells (None Seen) /HPF Urine Bacteria (None Seen) /HPF Urine Culture Reflexed (NO) 01/12/25 Range/Units 17:20 WBC (3.98-10.04) x10^3/uL RBC (3.93-5.22) x10^6/uL Hgb (11.2-15.7) g/dL Hct (34.1-44.9) % MCV (79.4-94.8) fL MCH (25.6-32.2) pg MCHC (32.2-35.5) g/dL RDW (11.7-14.4) % Plt Count (182-369) x10^3/uL MPV (9.4-12.3) fL Gran % (34.0-71.1) % Immature Gran % (Auto) (0.001-0.429) % Nucleat RBC Rel Count (0.00-0.2) % Eos # (Auto) (0.04-0.36) x10^3/uL Immature Gran # (Auto) (0.001-0.031) x10^3u/L Absolute Lymphs (auto) (1.18-3.74) x10^3/uL Absolute Monos (auto) (0.24-0.86) x10^3/uL Absolute Nucleated RBC (0.00-0.012) x10^3u/L Lymphocytes % (19.3-51.7) % Monocytes % (4.7-12.5) % Eosinophils % (0.7-5.8) % Basophils % (0.1-1.2) % Absolute Granulocytes (1.56-6.13) x10^3/uL Basophils # (0.01-0.08) x10^3/uL Sodium (135-145) mmol/L Potassium (3.5-5.1) mmol/L Chloride (98-107) mmol/L Carbon Dioxide (22-30) mmol/L Anion Gap (5-15) MEQ/L BUN (7-17) mg/dL Creatinine (0.52-1.04) mg/dL Estimated GFR ML/MIN Glucose (74-106) mg/dL Lactic Acid 2.2 H (0.4-2.0) Calcium (8.4-10.2) mg/dL Total Bilirubin (0.2-1.3) mg/dL AST (14-36) U/L ALT (0-35) U/L Alkaline Phosphatase (38-126) U/L Troponin I (0.000-0.033) ng/mL NT-Pro-B Natriuret Pep (<300) pg/mL Serum Total Protein (6.3-8.2) g/dL Albumin (3.5-5.0) g/dL Urine Color (Yellow) Urine Appearance (Clear) Urine pH (4.6-8.0) Ur Specific [place] (1.005-1.030) Urine Protein (Negative) Urine Glucose (UA) (Negative) mg/dL Urine Ketones (Negative) Urine Blood (Negative) Urine Nitrite (Negative) Urine Bilirubin (Negative) Urine Urobilinogen (0.2) mg/dL Ur Leukocyte Esterase (Negative) U Hyaline Cast (Auto) (0-2) /LPF Urine Microscopic RBC (0-5) /HPF Urine Microscopic WBC (0-5) /HPF Ur Epithelial Cells (None Seen) /HPF Urine Bacteria (None Seen) /HPF Urine Culture Reflexed (NO) - Progress Progress: improved, re-examined Counseled pt/family regarding: lab results, diagnosis, need for follow-up, rad results <SHREYA VASQUEZ - Last Filed: 01/12/25 19:17> <FILIBERTO GALO - Last Filed: 01/12/25 22:23> - Progress Progress Note: 01/12/25 19:17 turning pt over to Dr. Galo at change of shift for final interpreationa Tx and disposition after discussion or pending labs and consults, and current findings/results and symptoms. (SHREYA VASQUEZ) 01/12/25 19:53 The patient is complaining of dizziness. We will provide her with an Antivert oral medication. 01/12/25 20:40 I spoke with the patient's daughter, Elza, medical power of senior attorney, I discussed with her the teleneurologist recommendation. Dr. Johnson is the teleneurologist who evaluated this patient. She recommended a CT angiogram, CT a brain. If unable to do that she recommended an MRI and MRA. The patient's daughter stated that this patient cannot perform an MRI and MRA she is too claustrophobic. Elza agrees to the above studies. I discussed the risk of worsening kidney function and allergic reaction with her. I also discussed the benefits of determining if this patient has an acute stroke or thrombosis in a blood vessel in her brain. Dr. Johnson also recommended atorvastatin and a baby aspirin as well as meclizine. I we will follow Dr. Johnson's recommendation and order the above 01/12/25 22:06 Patient has returned from the CT angiography of the neck and CTA of the head and appears to be doing well. The following CT scans were performed with IV contrast and were interpreted by the radiologist: CT of the head shows no evidence of stenosis or aneurysm. No evidence of dissection. Bilateral internal carotid artery with arteriosclerotic calcifications without stenosis. CT angiography of the neck shows no evidence of stenosis or aneurysm. There is no evidence of dissection. Atherosclerotic calcifications are noted involving bilateral carotid bulb without significant stenosis. 01/12/25 22:17 I reviewed the above radiographic study results, laboratory data results, patient's past medical history, history present illness and chief complaint as well as the response to our treatment with Dr. Iyer who is the telehospitalist on at this time.. He agrees to place this patient in observation. He stated that he is putting in the admit orders and I do not need to. (FILIBERTO GALO) Medical Desision Making - Independent Historian Additional History obtained from: EMS - Discussion of managment Reviewed:: Test results, Need for additional workup Agreed on:: Treatment plan, need for follow-up - Diagnostic Testing Diagnostic test were ordered, analyzed, and reviewed by me: Yes Radiological Interpretation: Teleradiologist Report - Risk of complications The pt has a mod risk of morbidity or mortality based on: Need for prescription drug management The pt has a high risk of morbidity or mortality based on: Decision regarding hospitilization or escalation of hosp level of care <SHREYA VASQUEZ - Last Filed: 01/12/25 19:17> - Diagnostic Testing Diagnostic test were ordered, analyzed, and reviewed by me: Yes Radiological Interpretation: Reviewed by me <FILIBERTO GALO - Last Filed: 01/12/25 22:23> - Departure Critical Care Time: No <SHREYA VASQUEZ - Last Filed: 01/12/25 19:17> - Departure Departure Disposition: Observation Critical Care Time: No <FILIBERTO GALO - Last Filed: 01/12/25 22:23> - Departure Clinical Impression: Balance problem, Dizziness, Weakness Condition: Stable Referrals: FRANKI TOBAR MD [Primary Care Provider, [facility]] - Follow up/PCP as directed Instructions: Transient Ischemic Attack (DC)
[2025-01-12 17:26] LABS: BASOPHIL % 0.7 % (0.1-1.2); Basophil (Absolute #) 0.07 x10^3/uL (0.01-0.08); Eosinophil (Absolute #) 0.22 x10^3/uL (0.04-0.36); Hematocrit 39.5 % (34.1-44.9); Hemoglobin 12.3 g/dL (11.2-15.7); IMMATURE GRAN # 0.04 x10^3u/L (0.001-0.031); IMMATURE GRAN % 0.4 % (0.001-0.429); Lymphocyte (Absolute #) 1.52 x10^3/uL (1.18-3.74); Mean Corpuscular Hemoglobin 30.9 pg (25.6-32.2); Mean Corpuscular Hgb Concent. 31.1 g/dL (32.2-35.5); Monocyte (Absolute #) 0.60 x10^3/uL (0.24-0.86); NUCLEATED RBC # 0.00 x10^3u/L (0.00-0.012); NUCLEATED RBC % 0.0 % (0.00-0.2); Platelet Count 222 x10^3/uL (182-369); Red Blood Count 3.98 x10^6/uL (3.93-5.22); White Blood Count 9.9 x10^3/uL (3.98-10.04)
--- NOTE | 2025-01-12 17:36 | XRAY ---
CLINICAL HISTORY: sudden deficit COMPARISON: None. TECHNIQUE: Axial non-contrast CT scan of the brain was performed from the skull base to the high parietal region in axial, sagittal and coronal reconstructions. One of the following dose reduction techniques were utilized for this exam: Automated exposure control, adjustment of the mA and/or kV according to patient size, use of iterative reconstruction. 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 Bilateral periventricular old lacunar infarcts . bilateral deep & periventricular white matter hypodensities likey related to chronic small vessels changes . No evidence of acute hemorrhage or mass effect. Ventricular System: Ventricles are normal in size and configuration. No evidence of hydrocephalus or ventricular enlargement. Subarachnoid Spaces: Normal sulci and cisterns. No evidence of subarachnoid hemorrhage or extra-axial fluid collections. Cerebellum and Brainstem: No masses, lesions, or areas of abnormal density. Orbits: Normal appearance of the globes, optic nerves, and extraocular muscles. No evidence of orbital masses or abnormal density. Sinuses: Clear paranasal sinuses. No evidence of sinusitis or mucosal thickening. Mastoid Air Cells: Clear mastoid air cells. No evidence of mastoiditis. Skull: Normal skull morphology. IMPRESSION: 1. 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 2. 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 3. bilateral deep & periventricular white matter hypodensities likey related to chronic small vessels changes . 4. If acute ischemic insult was suspected clinically, MRI with diffusion sequences ais recommended. Electronically Signed by: Tal Celaya MD. (01/12/2025 17:35:35 EST)
[2025-01-12 17:44] LABS: Calcium 9.5 mg/dL (8.4-10.2); Carbon Dioxide 24.0 mmol/L (22-30); Creatinine 1 1.45 mg/dL (0.52-1.04); EST GLOMERULAR FILTRATION RATE 35.8 ML/MIN; Glucose 177.0 mg/dL (74-106); Potassium 4.3 mmol/L (3.5-5.1); SGOT/AST 26.0 U/L (14-36); SGPT/ALT 16.0 U/L (0-35); Total Protein 7.2 g/dL (6.3-8.2)
[2025-01-12 17:56] LABS: NT PRO BNPII 412 pg/mL (<300); TROPONIN < 0.012 ng/mL (0.000-0.033)
[2025-01-12] MEDS ORDERED: ANTIVERT 25 MG ONE (20:07)
[2025-01-12] MEDS: ANTIVERT 25 MG PO ONE (20:10)
[2025-01-12 20:44] LABS: Glucose, Urine Negative (Negative); Protein,Urine Dip Trace (Negative); RBC 0-2 /HPF (0-5); WBC 51-100 /HPF (0-5)
[2025-01-12] MEDS ORDERED: BENADRYL 50 MG/ML ONE (20:47)
[2025-01-12] MEDS ORDERED: Sterile H2O 10 ml IJ ONE (20:47)
[2025-01-12] MEDS ORDERED: BABY ASPIRIN 81 MG CHEW ONE (20:47)
[2025-01-12] MEDS ORDERED: LIPITOR 40MG ONE (20:47)
[2025-01-12] MEDS: LIPITOR 40MG PO STA (20:49)
[2025-01-12] MEDS: BABY ASPIRIN 81 MG CHEW PO ONE (20:49)
[2025-01-12] MEDS: solu-MEDROL 125 MG, Sterile H2O 10 ml 2 ML IV ONE (20:49)
[2025-01-12] MEDS: BENADRYL 50 MG/ML IV ONE (20:50)
--- NOTE | 2025-01-12 21:51 | XRAY ---
CLINICAL HISTORY: Dizziness; off balance COMPARISON: None. TECHNIQUE: Contrast enhanced thin slice CT angiography scan of the carotid vessels was performed with intravenous contrast. Angiographic images were processed, 3D MIP images were acquired for interpretation.Contiguous axial images were obtained. Reformatted coronal and sagittal images were also reviewed. If IV contrast material had not been administered, the likelihood of detecting abnormalities relevant to the patient's condition would have been substantially decreased. CT scan was performed according to ALARA (as low as reasonably achievable). FINDINGS: Atherosclerotic calcifications are noted involving bilateral carotid bulb without significant stenosis. Included great vessels of the aortic arch are grossly unremarkable. Common carotid artery, carotid Bulb, internal carotid artery , and origin of the external carotid artery are well opacified. Vertebral arteries are well opacified. Jugular veins are well opacified. Included lung apices are grossly unremarkable. Thyroid gland appears unremarkable. IMPRESSION: No evidence of stenosis or aneurysm. No evidence of dissection. Atherosclerotic calcifications are noted involving bilateral carotid bulb without significant stenosis. Electronically Signed by: Dilip Granados MD. (01/12/2025 21:49:12 EST)
--- NOTE | 2025-01-12 21:51 | XRAY ---
CLINICAL HISTORY: Dizziness; off balance COMPARISON: none. TECHNIQUE: Contrast enhanced thin slice CT angiography scan of the cerebral vessels was performed with intravenous contrast. Angiographic images were processed, 3D MIP images were acquired for interpretation. Contiguous axial images were obtained. Reformatted coronal and sagittal images were also reviewed. If IV contrast material had not been administered, the likelihood of detecting abnormalities relevant to the patient's condition would have been substantially decreased. CT scan was performed according to ALARA (as low as reasonably achievable). FINDINGS: Atherosclerotic calcifications are noted involving cavernous, clinoid and supraclinoid segment of bilateral internal carotid arteries without significant stenosis. Bilateral internal carotid arteries show normal course, calibre and opacification in the canalicular and cavernous part. Their division into the anterior cerebral artery and middle cerebral artery is defined. A1, A2 and M1, M2 segments are normal on both the sides. Bilateral vertebral arteries are seen to unite the form the basilar artery in a normal fashion. Basilar artery shows normal course, caliber and opacification. Its division into the posterior cerebral arteries is defined. Bilateral P1 and P2 segments are normal. Visualized venous structures show normal opacification. No evidence of intracranial aneurysm or AV malformation is seen. IMPRESSION: No evidence of stenosis or aneurysm. No evidence of dissection. Atherosclerotic calcifications are noted involving cavernous, clinoid and supraclinoid segment of bilateral internal carotid arteries without significant stenosis. Electronically Signed by: Dilip Granados MD. (01/12/2025 21:50:00 EST)
[2025-01-12] MEDS ORDERED: ANTIVERT 25 MG PO PRN (22:17)
--- NOTE | 2025-01-12 22:30 | PCM.HP ---
History of Present Illness - Chief Complaint Chief Complaint: vertigo Date: 01/12/25 History of Present Illness: is a 84 year old female.Who presented to the ED with CC of dizziness, had full work up which included ct head w/wo contrast which did not show any new intracranial findings assocaited with vertigo. Pt was given meclizine which helped her dizziness but pt complaining of continued weakness.. ED physician spoke with pt and family at bed side and pt will not tolerated mri. No other complaints noted by pt or family. - Review of Systems Neurological: Dizziness Medications & Allergies Home Medications: Home Medication List ALPRAZolam [Alprazolam ER] 1 mg PO BID PRN 07/16/19 [History Confirmed 01/12/25] Donepezil HCl [Aricept] 10 mg PO DAILY 11/04/21 [History Confirmed 01/12/25] Ferrous Sulfate [Iron] 325 mg PO TID 11/04/21 [History Confirmed 01/12/25] Metoprolol Succinate 25 mg Xl* [Toprol-Xl 25MG Tablets] 50 mg PO DAILY 11/04/21 [History Confirmed 01/12/25] Torsemide 20 mg [Demadex 20 mg] 40 mg PO DAILY 09/28/24 [History Confirmed 01/12/25] Allopurinol 100 mg [Zyloprim 100 mg] 100 mg PO DAILY 01/12/25 [History Confirmed 01/12/25] Ergocalciferol (Vitamin D2) [Vitamin D2] 1,250 mcg PO WEEKLY 01/12/25 [History Confirmed 01/12/25] Hydralazine HCl 25 mg PO Q8H 01/12/25 [History Confirmed 01/12/25] Hydrocodone/Acetaminophen [Hydrocodon-Acetaminophen 5-325] 1 tab PO TID 01/12/25 [History Confirmed 01/12/25] Losartan Potassium 50 mg [Cozaar 50 MG] 50 mg PO DAILY 01/12/25 [History Confirmed 01/12/25] Magnesium Oxide 400 mg [Mag-Ox 400] 400 mg PO BID 01/12/25 [History Confirmed 01/12/25] Oxybutynin Chloride [Oxybutynin Chloride ER] 10 mg PO DAILY 01/12/25 [History Confirmed 01/12/25] Sertraline HCl 50 mg [Zoloft 50 mg Tablet] 50 mg PO DAILY 01/12/25 [History Confirmed 01/12/25] Allergies/Adverse Reactions: Allergies Allergy/AdvReac Type Severity Reaction Status Date / Time vancomycin AdvReac Severe Verified 01/12/25 19:37 IV contrast dye AdvReac Severe Uncoded 01/12/25 19:37 - Past Medical History Past Medical History: Yes Neurological History: No Pertinent History ENT History: Cataracts Cardiac History: Congestive Heart Failure, Hypertension Respiratory History: CHF, COPD, Pneumonia Endocrine Medical History: Diabetes Type II, Other Musculoskelatal History: No Pertinent History GI Medical History: Other History: Other Pyscho-Social History: Anxiety Reproductive Disorders: No Pertinent History Comment: Pt is no longer on dialysis - Past Surgical History Past Surgical History: Yes Neuro Surgical History: No Pertinent History Cardiac History: No Pertinent History Respiratory Surgery: No Pertinent History GI Surgical History: Appendectomy, Cholecystectomy, Colon Resection, Hernia Repair Genitourinary Surgical Hx: No Pertinent History Musculskeletal Surgical Hx: Joint Replacement, Orthopedic Surgery Female Surgical History: Hysterectomy Other Surgical History: colostomy and reversal, bilateral knee replacement, skin cancer removal from face, right hand surgery Significant Family History: no pertinent family hx - Social History Smoking Status: Never smoker Exposure to second hand smoke: Yes Alcohol: None Drug Use: none - Social Determinants of Health Will the patient participate in the screening: Yes Do you worry about a steady place to live?: No Do you have any problems with any of the following?: No known problems In the past 12 months,have you had to go without utilities?: No Have you or anyone in your house had to go without enough: No Transportation Issues: No Has anyone in your support network made you feel unsafe?: No Does the patient want assistance with any of the above?: Yes Comment: HELP WITH MOLD REMOVAL - Physical Exam Vital Signs: Vital Signs - 24 hr Temp Pulse Resp BP BP Pulse Ox 01/12/25 22:00 68 17 149/62 96 01/12/25 21:51 74 18 134/82 95 01/12/25 21:50 74 16 94 L 01/12/25 21:40 73 26 H 97 01/12/25 21:32 95 01/12/25 21:01 71 24 140/73 99 01/12/25 20:32 64 20 98 01/12/25 20:01 62 14 113/53 95 01/12/25 19:31 82 16 134/66 98 01/12/25 19:18 96 01/12/25 19:00 58 L 12 107/70 95 01/12/25 18:30 63 13 112/60 95 01/12/25 18:00 69 15 107/61 96 01/12/25 17:43 61 16 130/64 96 01/12/25 17:42 68 23 98 01/12/25 17:40 70 24 97 01/12/25 17:31 73 24 01/12/25 17:12 67 24 01/12/25 17:04 97 01/12/25 17:00 135/65 01/12/25 16:47 96.9 F 77 11 L 112/57 96 General Appearance: no apparent distress Neurologic Exam: alert Eye Exam: PERRL/EOMI Neck Exam: normal inspection Respiratory Exam: normal breath sounds Cardiovascular Exam: regular rate/rhythm Gastrointestinal/Abdomen Exam: soft Pelvic Exam: not done Rectal Exam: deferred Skin Exam: normal color Results - Labs Lab/Micro Results: Lab Results-Last 24 Hours 01/12/25 01/12/25 01/12/25 Range/Units 17:20 17:27 17:27 WBC 9.9 (3.98-10.04) x10^3/uL RBC 3.98 (3.93-5.22) x10^6/uL Hgb 12.3 (11.2-15.7) g/dL Hct 39.5 (34.1-44.9) % MCV 99.2 H (79.4-94.8) fL MCH 30.9 (25.6-32.2) pg MCHC 31.1 L (32.2-35.5) g/dL RDW 13.2 (11.7-14.4) % Plt Count 222 (182-369) x10^3/uL MPV 10.6 (9.4-12.3) fL Gran % 75.4 H (34.0-71.1) % Immature Gran % (Auto) 0.4 (0.001-0.429) % Nucleat RBC Rel Count 0.0 (0.00-0.2) % Eos # (Auto) 0.22 (0.04-0.36) x10^3/uL Immature Gran # (Auto) 0.04 H (0.001-0.031) x10^3u/L Absolute Lymphs (auto) 1.52 (1.18-3.74) x10^3/uL Absolute Monos (auto) 0.60 (0.24-0.86) x10^3/uL Absolute Nucleated RBC 0.00 (0.00-0.012) x10^3u/L Lymphocytes % 15.3 L (19.3-51.7) % Monocytes % 6.0 (4.7-12.5) % Eosinophils % 2.2 (0.7-5.8) % Basophils % 0.7 (0.1-1.2) % Absolute Granulocytes 7.48 H (1.56-6.13) x10^3/uL Basophils # 0.07 (0.01-0.08) x10^3/uL Sodium 140 (135-145) mmol/L Potassium 4.3 (3.5-5.1) mmol/L Chloride 103 (98-107) mmol/L Carbon Dioxide 24 (22-30) mmol/L Anion Gap 17.1 H (5-15) MEQ/L BUN 30 H (7-17) mg/dL Creatinine 1.45 H (0.52-1.04) mg/dL Estimated GFR 35.8 ML/MIN Glucose 177 H (74-106) mg/dL Lactic Acid 2.2 H (0.4-2.0) Calcium 9.5 (8.4-10.2) mg/dL Total Bilirubin 0.50 (0.2-1.3) mg/dL AST 26 (14-36) U/L ALT 16 (0-35) U/L Alkaline Phosphatase 78 (38-126) U/L Troponin I (0.000-0.033) ng/mL NT-Pro-B Natriuret Pep (<300) pg/mL Serum Total Protein 7.2 (6.3-8.2) g/dL Albumin 4.5 (3.5-5.0) g/dL Urine Color (Yellow) Urine Appearance (Clear) Urine pH (4.6-8.0) Ur Specific [place] (1.005-1.030) Urine Protein (Negative) Urine Glucose (UA) (Negative) mg/dL Urine Ketones (Negative) Urine Blood (Negative) Urine Nitrite (Negative) Urine Bilirubin (Negative) Urine Urobilinogen (0.2) mg/dL Ur Leukocyte Esterase (Negative) U Hyaline Cast (Auto) (0-2) /LPF Urine Microscopic RBC (0-5) /HPF Urine Microscopic WBC (0-5) /HPF Ur Epithelial Cells (None Seen) /HPF Urine Bacteria (None Seen) /HPF Urine Culture Reflexed (NO) 01/12/25 01/12/25 01/12/25 Range/Units 17:27 19:27 20:17 WBC (3.98-10.04) x10^3/uL RBC (3.93-5.22) x10^6/uL Hgb (11.2-15.7) g/dL Hct (34.1-44.9) % MCV (79.4-94.8) fL MCH (25.6-32.2) pg MCHC (32.2-35.5) g/dL RDW (11.7-14.4) % Plt Count (182-369) x10^3/uL MPV (9.4-12.3) fL Gran % (34.0-71.1) % Immature Gran % (Auto) (0.001-0.429) % Nucleat RBC Rel Count (0.00-0.2) % Eos # (Auto) (0.04-0.36) x10^3/uL Immature Gran # (Auto) (0.001-0.031) x10^3u/L Absolute Lymphs (auto) (1.18-3.74) x10^3/uL Absolute Monos (auto) (0.24-0.86) x10^3/uL Absolute Nucleated RBC (0.00-0.012) x10^3u/L Lymphocytes % (19.3-51.7) % Monocytes % (4.7-12.5) % Eosinophils % (0.7-5.8) % Basophils % (0.1-1.2) % Absolute Granulocytes (1.56-6.13) x10^3/uL Basophils # (0.01-0.08) x10^3/uL Sodium (135-145) mmol/L Potassium (3.5-5.1) mmol/L Chloride (98-107) mmol/L Carbon Dioxide (22-30) mmol/L Anion Gap (5-15) MEQ/L BUN (7-17) mg/dL Creatinine (0.52-1.04) mg/dL Estimated GFR ML/MIN Glucose (74-106) mg/dL Lactic Acid 1.3 (0.4-2.0) Calcium (8.4-10.2) mg/dL Total Bilirubin (0.2-1.3) mg/dL AST (14-36) U/L ALT (0-35) U/L Alkaline Phosphatase (38-126) U/L Troponin I < 0.012 (0.000-0.033) ng/mL NT-Pro-B Natriuret Pep 412 (<300) pg/mL Serum Total Protein (6.3-8.2) g/dL Albumin (3.5-5.0) g/dL Urine Color Yellow (Yellow) Urine Appearance Cloudy A (Clear) Urine pH 6.0 (4.6-8.0) Ur Specific [place] 1.020 (1.005-1.030) Urine Protein Trace A (Negative) Urine Glucose (UA) Negative (Negative) mg/dL Urine Ketones Negative (Negative) Urine Blood Negative (Negative) Urine Nitrite Positive A (Negative) Urine Bilirubin Negative (Negative) Urine Urobilinogen 1.0 A (0.2) mg/dL Ur Leukocyte Esterase Moderate A (Negative) U Hyaline Cast (Auto) NONE SEEN (0-2) /LPF Urine Microscopic RBC 0-2 (0-5) /HPF Urine Microscopic WBC 51-100 A (0-5) /HPF Ur Epithelial Cells Rare (None Seen) /HPF Urine Bacteria Many A (None Seen) /HPF Urine Culture Reflexed YES (NO) 01/12/25 Range/Units 20:30 WBC (3.98-10.04) x10^3/uL RBC (3.93-5.22) x10^6/uL Hgb (11.2-15.7) g/dL Hct (34.1-44.9) % MCV (79.4-94.8) fL MCH (25.6-32.2) pg MCHC (32.2-35.5) g/dL RDW (11.7-14.4) % Plt Count (182-369) x10^3/uL MPV (9.4-12.3) fL Gran % (34.0-71.1) % Immature Gran % (Auto) (0.001-0.429) % Nucleat RBC Rel Count (0.00-0.2) % Eos # (Auto) (0.04-0.36) x10^3/uL Immature Gran # (Auto) (0.001-0.031) x10^3u/L Absolute Lymphs (auto) (1.18-3.74) x10^3/uL Absolute Monos (auto) (0.24-0.86) x10^3/uL Absolute Nucleated RBC (0.00-0.012) x10^3u/L Lymphocytes % (19.3-51.7) % Monocytes % (4.7-12.5) % Eosinophils % (0.7-5.8) % Basophils % (0.1-1.2) % Absolute Granulocytes (1.56-6.13) x10^3/uL Basophils # (0.01-0.08) x10^3/uL Sodium (135-145) mmol/L Potassium (3.5-5.1) mmol/L Chloride (98-107) mmol/L Carbon Dioxide (22-30) mmol/L Anion Gap (5-15) MEQ/L BUN (7-17) mg/dL Creatinine (0.52-1.04) mg/dL Estimated GFR ML/MIN Glucose (74-106) mg/dL Lactic Acid (0.4-2.0) Calcium (8.4-10.2) mg/dL Total Bilirubin (0.2-1.3) mg/dL AST (14-36) U/L ALT (0-35) U/L Alkaline Phosphatase (38-126) U/L Troponin I 0.014 (0.000-0.033) ng/mL NT-Pro-B Natriuret Pep (<300) pg/mL Serum Total Protein (6.3-8.2) g/dL Albumin (3.5-5.0) g/dL Urine Color (Yellow) Urine Appearance (Clear) Urine pH (4.6-8.0) Ur Specific [place] (1.005-1.030) Urine Protein (Negative) Urine Glucose (UA) (Negative) mg/dL Urine Ketones (Negative) Urine Blood (Negative) Urine Nitrite (Negative) Urine Bilirubin (Negative) Urine Urobilinogen (0.2) mg/dL Ur Leukocyte Esterase (Negative) U Hyaline Cast (Auto) (0-2) /LPF Urine Microscopic RBC (0-5) /HPF Urine Microscopic WBC (0-5) /HPF Ur Epithelial Cells (None Seen) /HPF Urine Bacteria (None Seen) /HPF Urine Culture Reflexed (NO) - Radiology Impressions Radiology Exams & Impressions: Radiology Procedures Category Date Time Status CT ANGIOGRAPHY NECK [CT] Stat Exams 01/12/25 21:35 Completed CTA HEAD W AND/OR WO CONTRAST [CT] Stat Exams 01/12/25 21:37 Completed ECHO W/2D AND DOPPLER [US] Routine Exams 01/12/25 22:19 Ordered HEAD WITHOUT CONTRAST [CT] Stat Exams 01/12/25 16:51 Completed Assessment/Plan (1) Dizziness Current Visit: Yes Status: Acute Assessment & Plan: Uncertain of Origin at this time. CT's negative Pt refusing MRI TESTS: Monitor of tele 2d echo pt/ot Treatment Meclizine 12.5mg qid prn Code(s): R42 - DIZZINESS AND GIDDINESS (2) Weakness Current Visit: Yes Status: Acute Assessment & Plan: pt/ot eval Code(s): R53.1 - WEAKNESS (3) Acute UTI Current Visit: Yes Status: Acute Assessment & Plan: Test: CBC CMP Urinalysis Urine culture Blood cultures x [address] scan abdomen to rule out:calculi, gas-forming infections, hemorrhage, obstruction, and abscesses Treatment: IV fluid rehydration Tylenol for fever Acute complicated UTI: UTI extending beyond the bladder, fevers, rigors, chills, systemic symptoms including possible flank pain and CVA tenderness as well as pelvic or perineal pain (? Risk of MDR) -No history of multidrug-resistant organisms: ceftriaxone Code(s): N39.0 - URINARY TRACT INFECTION, SITE NOT SPECIFIED (4) CHF (congestive heart failure) Current Visit: No Status: Chronic Assessment & Plan: Restart home based drug regiment except for diuretic therapy as pt is currently being hydrated due to UTI. monitor for signs of fluid overload test: 2d echo Code(s): I50.9 - HEART FAILURE, UNSPECIFIED Telemedicine Encounter - Telemedicine Encounter Telemedicine Encounter: "The entirety of this encounter was performed via Telemedicine" This visit was performed using real-time audio and video connection between my location and thepatients locationwith the assistance of a surrogateat the patients location. Written or verbal consent was obtained from the patient/guardian to perform this visit [facility] technology. Any patient questions regarding the telemedicine interaction were answered.
[2025-01-13] MEDS: Apresoline 25 MG TABLET PO SCH ×2 (00:11→13:30)
[2025-01-13 04:54] LABS: Hematocrit 36.1 % (34.1-44.9); Hemoglobin 11.3 g/dL (11.2-15.7); Mean Corpuscular Hemoglobin 30.5 pg (25.6-32.2); Mean Corpuscular Hgb Concent. 31.3 g/dL (32.2-35.5); Platelet Count 208 x10^3/uL (182-369); Red Blood Count 3.71 x10^6/uL (3.93-5.22); White Blood Count 7.5 x10^3/uL (3.98-10.04)
[2025-01-13 05:11] LABS: Calcium 9.4 mg/dL (8.4-10.2); Carbon Dioxide 25.0 mmol/L (22-30); Creatinine 1 1.51 mg/dL (0.52-1.04); EST GLOMERULAR FILTRATION RATE 34.1 ML/MIN; Glucose 242.0 mg/dL (74-106); Potassium 4.7 mmol/L (3.5-5.1)
[2025-01-13] MEDS ORDERED: HUMALOG SQ PRN (05:38)
--- NOTE | 2025-01-13 05:38 | PCM.NOTE ---
Date and Time: 01/13/25 0532 Subjective Assessment: Ms. Bragg is an 84-year-old woman who came to the ED 01/12/25 for evaluation of dizziness that started along with head/neck discomfort and intermittent blurred vision. On arrival, her vital signs were stable and she reported no other symptoms. CT head with and without contrast showed no acute intracranial findings to explain vertigo. 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 Labs showed anion gap 17.1, BUN 30, creatinine 1.45 (baseline ~1.6), and glucose 177. Urinalysis was concerning for UTI. Meclizine in the ED improved her dizziness, though she continued to feel generally weak. She was evaluated by teleneurology (Dr. Johnson), who recommended CTA H/N which showed no stenosis, aneurysm, or dissection, only age-related atherosclerotic calcifications of the carotids without significant narrowing as well as MRI/MRA for further stroke evaluation. The patient and family stated she cannot tolerate MRI due to severe claustrophobia. In ED she received atorvastatin, aspirin 81 mg, meclizine, Solu-Medrol, and IV fluids. She was also started on ceftriaxone. No new focal deficits were noted by ED staff, and both patient and family denied any other complaints. 01/13/25: Met with patient bedside. CT head demonstrates remote infarct; CTA head and neck shows no hemodynamically significant stenosis. Patient initially declined MRI but is now agreeable to MRI today with pre-procedure Ativan due to claustrophobia. Continuing aspirin and atorvastatin per neurology recommendations. Recent labs notable for LDL 113, A1c 5.6%; TSH pending. Clinically, the patient continues to endorse ongoing dizziness described as constant room-spinning vertigo, associated with impaired balance and reduced ability to ambulate safely. Symptoms persist despite rest and are exacerbated with positional changes. Given functional limitations, a physical therapy evaluation has been requested to assess mobility, fall risk, and to assist with discharge planning and recommendations for the appropriate level of post-acute care. - Review of Systems Constitutional: Weakness Eyes: No Symptoms Ears, Nose, & Throat: No Symptoms Respiratory: No Symptoms Cardiac: No Symptoms Abdominal/Gastrointestinal: No Symptoms Genitourinary Symptoms: No Symptoms Musculoskeletal: No Symptoms Skin: No Symptoms Neurological: Dizziness, Gait Changes, Headache Psychological: No Symptoms Endocrine: No Symptoms Hematologic/Lymphatic: No Symptoms Immunological/Allergic: No Symptoms Objective Exam General Appearance: no apparent distress Neurologic Exam: alert, 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, cooperative Skin Exam: normal color Eye Exam: PERRL Ears, Nose, Throat Exam: normal ENT inspection Neck Exam: normal inspection Respiratory Exam: normal breath sounds, lungs clear Cardiovascular Exam: regular rate/rhythm, normal heart sounds Gastrointestinal/Abdomen Exam: soft, normal bowel sounds Extremity Exam: normal inspection Back Exam: normal inspection Pelvic Exam: deferred Rectal Exam: deferred Objective Data Vital Signs: Vital Signs - 24 hr Temp Pulse Resp BP BP Pulse Ox 01/13/25 04:00 97.9 F 67 16 141/65 94 L 01/13/25 00:00 97.8 F 63 18 150/67 93 L 01/12/25 22:50 97.8 F 63 18 150/67 93 L 01/12/25 22:31 65 20 160/68 97 01/12/25 22:00 68 17 149/62 96 01/12/25 21:51 74 18 134/82 95 01/12/25 21:50 74 16 94 L 01/12/25 21:40 73 26 H 97 01/12/25 21:32 95 01/12/25 21:01 71 24 140/73 99 01/12/25 20:32 64 20 98 01/12/25 20:01 62 14 113/53 95 01/12/25 19:31 82 16 134/66 98 01/12/25 19:18 96 01/12/25 19:00 58 L 12 107/70 95 01/12/25 18:30 63 13 112/60 95 01/12/25 18:00 69 15 107/61 96 01/12/25 17:43 61 16 130/64 96 01/12/25 17:42 68 23 98 01/12/25 17:40 70 24 97 01/12/25 17:31 73 24 01/12/25 17:12 67 24 01/12/25 17:04 97 01/12/25 17:00 135/65 01/12/25 16:47 96.9 F 77 11 L 112/57 96 Pain Assessment - Last Documented Pain Intensity 3 Intake and Output: Intake & Output 01/10/25 01/11/25 01/12/25 01/13/25 11:59 11:59 11:59 11:59 Intake Total 343 Output Total 0 Balance 343 Weight 112.9 kg Lab Results: Lab Results-Last 24 Hours 01/12/25 01/12/25 01/12/25 Range/Units 17:20 17:27 17:27 WBC 9.9 (3.98-10.04) x10^3/uL RBC 3.98 (3.93-5.22) x10^6/uL Hgb 12.3 (11.2-15.7) g/dL Hct 39.5 (34.1-44.9) % MCV 99.2 H (79.4-94.8) fL MCH 30.9 (25.6-32.2) pg MCHC 31.1 L (32.2-35.5) g/dL RDW 13.2 (11.7-14.4) % Plt Count 222 (182-369) x10^3/uL MPV 10.6 (9.4-12.3) fL Gran % 75.4 H (34.0-71.1) % Immature Gran % (Auto) 0.4 (0.001-0.429) % Nucleat RBC Rel Count 0.0 (0.00-0.2) % Eos # (Auto) 0.22 (0.04-0.36) x10^3/uL Immature Gran # (Auto) 0.04 H (0.001-0.031) x10^3u/L Absolute Lymphs (auto) 1.52 (1.18-3.74) x10^3/uL Absolute Monos (auto) 0.60 (0.24-0.86) x10^3/uL Absolute Nucleated RBC 0.00 (0.00-0.012) x10^3u/L Lymphocytes % 15.3 L (19.3-51.7) % Monocytes % 6.0 (4.7-12.5) % Eosinophils % 2.2 (0.7-5.8) % Basophils % 0.7 (0.1-1.2) % Absolute Granulocytes 7.48 H (1.56-6.13) x10^3/uL Basophils # 0.07 (0.01-0.08) x10^3/uL Sodium 140 (135-145) mmol/L Potassium 4.3 (3.5-5.1) mmol/L Chloride 103 (98-107) mmol/L Carbon Dioxide 24 (22-30) mmol/L Anion Gap 17.1 H (5-15) MEQ/L BUN 30 H (7-17) mg/dL Creatinine 1.45 H (0.52-1.04) mg/dL Estimated GFR 35.8 ML/MIN Glucose 177 H (74-106) mg/dL Lactic Acid 2.2 H (0.4-2.0) Calcium 9.5 (8.4-10.2) mg/dL Total Bilirubin 0.50 (0.2-1.3) mg/dL AST 26 (14-36) U/L ALT 16 (0-35) U/L Alkaline Phosphatase 78 (38-126) U/L Troponin I (0.000-0.033) ng/mL NT-Pro-B Natriuret Pep (<300) pg/mL Serum Total Protein 7.2 (6.3-8.2) g/dL Albumin 4.5 (3.5-5.0) g/dL Urine Color (Yellow) Urine Appearance (Clear) Urine pH (4.6-8.0) Ur Specific Sidon (1.005-1.030) Urine Protein (Negative) Urine Glucose (UA) (Negative) mg/dL Urine Ketones (Negative) Urine Blood (Negative) Urine Nitrite (Negative) Urine Bilirubin (Negative) Urine Urobilinogen (0.2) mg/dL Ur Leukocyte Esterase (Negative) U Hyaline Cast (Auto) (0-2) /LPF Urine Microscopic RBC (0-5) /HPF Urine Microscopic WBC (0-5) /HPF Ur Epithelial Cells (None Seen) /HPF Urine Bacteria (None Seen) /HPF Urine Culture Reflexed (NO) 01/12/25 01/12/25 01/12/25 Range/Units 17:27 19:27 20:17 WBC (3.98-10.04) x10^3/uL RBC (3.93-5.22) x10^6/uL Hgb (11.2-15.7) g/dL Hct (34.1-44.9) % MCV (79.4-94.8) fL MCH (25.6-32.2) pg MCHC (32.2-35.5) g/dL RDW (11.7-14.4) % Plt Count (182-369) x10^3/uL MPV (9.4-12.3) fL Gran % (34.0-71.1) % Immature Gran % (Auto) (0.001-0.429) % Nucleat RBC Rel Count (0.00-0.2) % Eos # (Auto) (0.04-0.36) x10^3/uL Immature Gran # (Auto) (0.001-0.031) x10^3u/L Absolute Lymphs (auto) (1.18-3.74) x10^3/uL Absolute Monos (auto) (0.24-0.86) x10^3/uL Absolute Nucleated RBC (0.00-0.012) x10^3u/L Lymphocytes % (19.3-51.7) % Monocytes % (4.7-12.5) % Eosinophils % (0.7-5.8) % Basophils % (0.1-1.2) % Absolute Granulocytes (1.56-6.13) x10^3/uL Basophils # (0.01-0.08) x10^3/uL Sodium (135-145) mmol/L Potassium (3.5-5.1) mmol/L Chloride (98-107) mmol/L Carbon Dioxide (22-30) mmol/L Anion Gap (5-15) MEQ/L BUN (7-17) mg/dL Creatinine (0.52-1.04) mg/dL Estimated GFR ML/MIN Glucose (74-106) mg/dL Lactic Acid 1.3 (0.4-2.0) Calcium (8.4-10.2) mg/dL Total Bilirubin (0.2-1.3) mg/dL AST (14-36) U/L ALT (0-35) U/L Alkaline Phosphatase (38-126) U/L Troponin I < 0.012 (0.000-0.033) ng/mL NT-Pro-B Natriuret Pep 412 (<300) pg/mL Serum Total Protein (6.3-8.2) g/dL Albumin (3.5-5.0) g/dL Urine Color Yellow (Yellow) Urine Appearance Cloudy A (Clear) Urine pH 6.0 (4.6-8.0) Ur Specific Sidon 1.020 (1.005-1.030) Urine Protein Trace A (Negative) Urine Glucose (UA) Negative (Negative) mg/dL Urine Ketones Negative (Negative) Urine Blood Negative (Negative) Urine Nitrite Positive A (Negative) Urine Bilirubin Negative (Negative) Urine Urobilinogen 1.0 A (0.2) mg/dL Ur Leukocyte Esterase Moderate A (Negative) U Hyaline Cast (Auto) NONE SEEN (0-2) /LPF Urine Microscopic RBC 0-2 (0-5) /HPF Urine Microscopic WBC 51-100 A (0-5) /HPF Ur Epithelial Cells Rare (None Seen) /HPF Urine Bacteria Many A (None Seen) /HPF Urine Culture Reflexed YES (NO) 01/12/25 01/13/25 01/13/25 Range/Units 20:30 01:30 04:48 WBC 7.5 (3.98-10.04) x10^3/uL RBC 3.71 L (3.93-5.22) x10^6/uL Hgb 11.3 (11.2-15.7) g/dL Hct 36.1 (34.1-44.9) % MCV 97.3 H (79.4-94.8) fL MCH 30.5 (25.6-32.2) pg MCHC 31.3 L (32.2-35.5) g/dL RDW 13.2 (11.7-14.4) % Plt Count 208 (182-369) x10^3/uL MPV 10.9 (9.4-12.3) fL Gran % (34.0-71.1) % Immature Gran % (Auto) (0.001-0.429) % Nucleat RBC Rel Count (0.00-0.2) % Eos # (Auto) (0.04-0.36) x10^3/uL Immature Gran # (Auto) (0.001-0.031) x10^3u/L Absolute Lymphs (auto) (1.18-3.74) x10^3/uL Absolute Monos (auto) (0.24-0.86) x10^3/uL Absolute Nucleated RBC (0.00-0.012) x10^3u/L Lymphocytes % (19.3-51.7) % Monocytes % (4.7-12.5) % Eosinophils % (0.7-5.8) % Basophils % (0.1-1.2) % Absolute Granulocytes (1.56-6.13) x10^3/uL Basophils # (0.01-0.08) x10^3/uL Sodium (135-145) mmol/L Potassium (3.5-5.1) mmol/L Chloride (98-107) mmol/L Carbon Dioxide (22-30) mmol/L Anion Gap (5-15) MEQ/L BUN (7-17) mg/dL Creatinine (0.52-1.04) mg/dL Estimated GFR ML/MIN Glucose (74-106) mg/dL Lactic Acid (0.4-2.0) Calcium (8.4-10.2) mg/dL Total Bilirubin (0.2-1.3) mg/dL AST (14-36) U/L ALT (0-35) U/L Alkaline Phosphatase (38-126) U/L Troponin I 0.014 < 0.012 (0.000-0.033) ng/mL NT-Pro-B Natriuret Pep (<300) pg/mL Serum Total Protein (6.3-8.2) g/dL Albumin (3.5-5.0) g/dL Urine Color (Yellow) Urine Appearance (Clear) Urine pH (4.6-8.0) Ur Specific Sidon (1.005-1.030) Urine Protein (Negative) Urine Glucose (UA) (Negative) mg/dL Urine Ketones (Negative) Urine Blood (Negative) Urine Nitrite (Negative) Urine Bilirubin (Negative) Urine Urobilinogen (0.2) mg/dL Ur Leukocyte Esterase (Negative) U Hyaline Cast (Auto) (0-2) /LPF Urine Microscopic RBC (0-5) /HPF Urine Microscopic WBC (0-5) /HPF Ur Epithelial Cells (None Seen) /HPF Urine Bacteria (None Seen) /HPF Urine Culture Reflexed (NO) 01/13/25 Range/Units 04:48 WBC (3.98-10.04) x10^3/uL RBC (3.93-5.22) x10^6/uL Hgb (11.2-15.7) g/dL Hct (34.1-44.9) % MCV (79.4-94.8) fL MCH (25.6-32.2) pg MCHC (32.2-35.5) g/dL RDW (11.7-14.4) % Plt Count (182-369) x10^3/uL MPV (9.4-12.3) fL Gran % (34.0-71.1) % Immature Gran % (Auto) (0.001-0.429) % Nucleat RBC Rel Count (0.00-0.2) % Eos # (Auto) (0.04-0.36) x10^3/uL Immature Gran # (Auto) (0.001-0.031) x10^3u/L Absolute Lymphs (auto) (1.18-3.74) x10^3/uL Absolute Monos (auto) (0.24-0.86) x10^3/uL Absolute Nucleated RBC (0.00-0.012) x10^3u/L Lymphocytes % (19.3-51.7) % Monocytes % (4.7-12.5) % Eosinophils % (0.7-5.8) % Basophils % (0.1-1.2) % Absolute Granulocytes (1.56-6.13) x10^3/uL Basophils # (0.01-0.08) x10^3/uL Sodium 137 (135-145) mmol/L Potassium 4.7 (3.5-5.1) mmol/L Chloride 105 (98-107) mmol/L Carbon Dioxide 25 (22-30) mmol/L Anion Gap 11.8 (5-15) MEQ/L BUN 32 H (7-17) mg/dL Creatinine 1.51 H (0.52-1.04) mg/dL Estimated GFR 34.1 ML/MIN Glucose 242 H (74-106) mg/dL Lactic Acid (0.4-2.0) Calcium 9.4 (8.4-10.2) mg/dL Total Bilirubin (0.2-1.3) mg/dL AST (14-36) U/L ALT (0-35) U/L Alkaline Phosphatase (38-126) U/L Troponin I (0.000-0.033) ng/mL NT-Pro-B Natriuret Pep (<300) pg/mL Serum Total Protein (6.3-8.2) g/dL Albumin (3.5-5.0) g/dL Urine Color (Yellow) Urine Appearance (Clear) Urine pH (4.6-8.0) Ur Specific [place] (1.005-1.030) Urine Protein (Negative) Urine Glucose (UA) (Negative) mg/dL Urine Ketones (Negative) Urine Blood (Negative) Urine Nitrite (Negative) Urine Bilirubin (Negative) Urine Urobilinogen (0.2) mg/dL Ur Leukocyte Esterase (Negative) U Hyaline Cast (Auto) (0-2) /LPF Urine Microscopic RBC (0-5) /HPF Urine Microscopic WBC (0-5) /HPF Ur Epithelial Cells (None Seen) /HPF Urine Bacteria (None Seen) /HPF Urine Culture Reflexed (NO) Radiology Exams: Radiology Procedures Category Date Time Status CT ANGIOGRAPHY NECK [CT] Stat Exams 01/12/25 21:35 Completed CTA HEAD W AND/OR WO CONTRAST [CT] Stat Exams 01/12/25 21:37 Completed ECHO W/2D AND DOPPLER [US] Routine Exams 01/13/25 22:50 Ordered HEAD WITHOUT CONTRAST [CT] Stat Exams 01/12/25 16:51 Completed Medications: Medications Generic Name Dose Route Start Last Admin Trade Name Freq PRN Reason Stop Dose Admin Allopurinol 100 mg 01/13/25 10:00 Allopurinol 100 Mg Tablet PO 02/12/25 09:59 DAILY OLGA Ergocalciferol unit 01/12/25 22:30 Ergocalciferol (Vitamin D2) 50,000 Unit Capsule PO 02/11/25 22:29 WEEKLY OLGA Ferrous Sulfate 325 mg 01/13/25 10:00 Ferrous Sulfate 325 Mg Tablet PO 02/12/25 09:59 TID OLGA Heparin Sodium (Beef Lung) 5,000 unit 01/13/25 10:00 Heparin 5000 Units/0.5 Ml 5,000 Unit/0.5 Ml Syr SQ 02/12/25 09:59 BID OLGA Hydralazine HCl 25 mg 01/12/25 22:30 01/13/25 00:11 Hydralazine Hcl 25 Mg Tablet PO 02/11/25 22:29 25 mg Q8H OLGA Administration Sodium Chloride 1,000 mls @ 50 mls/hr 01/12/25 22:30 01/13/25 00:00 Sodium Chloride 0.9% 1000 Ml IV 02/11/25 22:29 50 mls/hr .Q20H OLGA Administration Ceftriaxone Sodium 1 gm in 100 mls @ 200 mls/hr 01/13/25 10:00 Rocephin 1 Gm / 100 Ml Nacl IV 02/12/25 09:59 Q24H10 OLGA Losartan Potassium 50 mg 01/13/25 10:00 Losartan Potassium 50 Mg Tablet PO 02/12/25 09:59 DAILY OLGA Magnesium Oxide 400 mg 01/13/25 10:00 Magnesium Oxide 400 Mg Tablet PO 02/12/25 09:59 BID OLGA Meclizine HCl 12.5 mg 01/12/25 22:17 Meclizine Hcl 25 Mg Tablet PO 02/11/25 22:16 QID PRN PRN DIZZINESS Metoprolol Succinate 50 mg 01/13/25 10:00 Metoprolol Succinate 25 Mg Xl Tab PO 02/12/25 09:59 DAILY OLGA Non-Formulary Medication 10 mg 01/13/25 10:00 Donepezil Hcl [Aricept] PO 02/12/25 09:59 DAILY OLGA Sertraline HCl 50 mg 01/13/25 10:00 Sertraline Hcl 50 Mg Tab PO 02/12/25 09:59 DAILY OLGA Discontinued Medications Generic Name Dose Route Start Last Admin Trade Name Freq PRN Reason Stop Dose Admin Aspirin 81 mg 01/12/25 20:43 01/12/25 20:49 Aspirin 81 Mg Tab.Chew PO 01/12/25 20:44 81 mg STAT ONE Administration Aspirin Confirm 01/12/25 20:47 Aspirin 81 Mg Tab.Chew Administered 01/12/25 20:48 Dose 81 mg .ROUTE .STK-MED ONE Atorvastatin Calcium 40 mg 01/12/25 20:43 01/12/25 20:49 Atorvastatin Calcium 40 Mg Tablet PO 01/12/25 20:44 40 mg STAT STA Administration Atorvastatin Calcium Confirm 01/12/25 20:47 Atorvastatin Calcium 40 Mg Tablet Administered 01/12/25 20:48 Dose 40 mg .ROUTE .STK-MED ONE Methylprednisolone Sodium 0 mg 01/12/25 20:41 01/12/25 20:49 Succinate 125 mg/ Sterile IV 01/12/25 20:42 125 mg Water 2 ml STAT ONE Administration Diphenhydramine HCl 50 mg 01/12/25 20:41 01/12/25 20:50 Diphenhydramine Hcl 50 Mg/Ml Vial IV 01/12/25 20:42 50 mg STAT ONE Administration Diphenhydramine HCl Confirm 01/12/25 20:47 Diphenhydramine Hcl 50 Mg/Ml Vial Administered 01/12/25 20:48 Dose 50 mg .ROUTE .STK-MED ONE Sodium Chloride 1,000 mls @ 100 mls/hr 01/12/25 20:45 01/12/25 22:37 Sodium Chloride 0.9% 1000 Ml IV 02/11/25 20:44 50 mls/hr .Q10H OLGA Infusion Meclizine HCl 12.5 mg 01/12/25 19:53 01/12/25 20:10 Meclizine Hcl 25 Mg Tablet PO 01/12/25 19:54 12.5 mg STAT ONE Administration Meclizine HCl Confirm 01/12/25 20:07 Meclizine Hcl 25 Mg Tablet Administered 01/12/25 20:08 Dose 25 mg .ROUTE .STK-MED ONE Methylprednisolone Sodium Succinate Confirm 01/12/25 20:47 Methylprednis Sod Succ 125 Mg/2 Ml Vial Administered 01/12/25 20:48 Dose 125 mg .ROUTE .STK-MED ONE Sterile Water Confirm 01/12/25 20:47 Water For Injection,Sterile 10 Ml Vial Administered 01/12/25 20:48 Dose 10 ml IJ .STK-MED ONE Assessment/Plan (1) Dizziness Current Visit: Yes Status: Acute Assessment & Plan: -Dizziness partially responsive to meclizine. CT head w/wo and CTA head/neck negative for acute stroke or vascular lesion. No focal deficits on exam. -Patient declined MRI initially- now agreeable to try with Ativan 0.5mg IV 1/2hr prior to exam -Neuro evaluated with recs for echo, atorvastatin, and ASA- continue -Lipid panel, A1c reviewed -TSH low, will recheck tomorrow with FT4 -Continue telemetry monitoring. -Echo pending -Orthostats pending -PT/OT evaluation for gait, balance, and safety. -Meclizine 12.5 mg QID PRN for persistent dizziness. -Reassess for any evolving neurologic changes; low threshold to revisit imaging options if symptoms progress. Code(s): R42 - DIZZINESS AND GIDDINESS (2) Acute UTI Current Visit: Yes Status: Acute Assessment & Plan: -UA concerning for infection; ceftriaxone started, continue and follow cultures Code(s): N39.0 - URINARY TRACT INFECTION, SITE NOT SPECIFIED (3) CHF (congestive heart failure) Current Visit: Yes Status: Acute Assessment & Plan: -Resume home medications -Monitor for fluid overload (daily weights, lung exam, I/O). -Echo ordered to reassess EF and valvular function. Code(s): I50.9 - HEART FAILURE, UNSPECIFIED (4) Weakness Current Visit: Yes Status: Acute Assessment & Plan: -Likely multifactorialrecent dizziness episode, age, deconditioning, and active infection. No focal deficits noted. -PT/OT consultation for mobility and functional status. -Fall precautions. -Monitor neuro status for any evolving deficits. Code(s): R53.1 - WEAKNESS (5) Diabetes Current Visit: Yes Status: Acute Assessment & Plan: -ADA diet -low dose SSI - adjust as needed - A1c 5.66 -ACHS accuchecks -blood glucose level at 242 this morning most likely 2/2 to steroids given in ED Code(s): E11.9 - TYPE 2 DIABETES MELLITUS WITHOUT COMPLICATIONS (6) HTN (hypertension) Current Visit: Yes Status: Acute Assessment & Plan: -BP stable: continue home meds once out of the window for permissive HTN VTE: SCD/ASA PPI: Protonix Dispo: 1-2 day Code status: Full Code Plan of care time spent > 40 mins Code(s): I10 - ESSENTIAL (PRIMARY) HYPERTENSION
[2025-01-13] MEDS: Ativan 2 MG/1 ML VIAL IV ONE (09:39)
[2025-01-13 09:45] LABS: Cholesterol 181.0 mg/dL (50-200); LDL, DIRECT 113.0 mg/dL (30-100); TRIGLYCERIDE 56.0 mg/dL (30-150)
[2025-01-13] MEDS ORDERED: Toprol-Xl 25MG Tablets PO SCH (10:00)
[2025-01-13] MEDS ORDERED: BABY ASPIRIN 81 MG CHEW PO SCH (10:00)
[2025-01-13] MEDS ORDERED: NON-FORMULARY ITEM (Donepezil Hcl [Aricept] 5 MG Tablet) PO SCH (10:00)
[2025-01-13] MEDS ORDERED: Zofran 4 MG/2 ML VIAL IV PRN (10:12)
[2025-01-13] MEDS: ECOTRIN 81 MG PO SCH (11:36)
[2025-01-13] MEDS: Cozaar 50 MG PO SCH (11:36)
[2025-01-13] MEDS: ZYLOPRIM 100 MG PO SCH (11:37)
[2025-01-13] MEDS: Protonix 40MG Tablet PO SCH (11:37)
[2025-01-13] MEDS: Aricept 10 MG PO SCH (11:37)
[2025-01-13] MEDS: LIPITOR 40MG PO SCH (11:37)
[2025-01-13] MEDS: FEOSOL 325 MG PO SCH (11:37)
[2025-01-13] MEDS: TYLENOL 325 MG PO PRN (11:37)
[2025-01-13] MEDS: MAG-OX 400 PO SCH (11:37)
[2025-01-13] MEDS: ROCEPHIN 1 GM / 100 ML NaCl 1 GM/100 ML IVPB IV SCH (11:39)
[2025-01-13] MEDS: ZOLOFT 50 MG TABLET PO SCH (11:40)
[2025-01-13] MEDS: Toprol Xl 50 MG PO SCH (11:41)
[2025-01-13] MEDS: HUMALOG SQ PRN (12:12)
--- NOTE | 2025-01-13 12:33 | XRAY ---
Indication: Dizziness. Negative CT head, CTA neck, and CTA head exams 1 day earlier. Sagittal, coronal, and axial MRI brain performed without contrast using T1, T2, FLAIR, diffusion, and ADC sequences. Comparison: None Numerous images/sequences are slightly degraded by motion. Age-appropriate global atrophy and moderate periventricular degenerative microischemia signal bilaterally. Basal ganglia demonstrates incidental prominent Virchow Jeronimo spaces bilaterally. No acute intracranial hemorrhage, abnormal extra-axial fluid collection, or mass effect. Diffusion images negative for restricted signal. 4th ventricle is midline without hydrocephalus. 7/8 cranial nerve complex bilaterally symmetric. Normal flow void signal within the major intracerebral circulation. Normal appearing craniocervical junction and sella turcica. Moderate fluid signal in both mastoid air cells presumed inflammatory. Paranasal sinuses are clear. Impression: 1. Motion artifact. 2. Atrophy and degenerative microischemia within normal limits. 3. No gross acute intracranial abnormalities or evidence for evolving large vessel territorial stroke. 4. Fluid signal both mastoid air cells presumed inflammatory.
[2025-01-13] MEDS: HEPARIN 5000 UNITS/0.5 ML (HIGH RISK MED) SQ SCH (13:26)
[2025-01-14 04:24] VITALS: O2SAT 95
[2025-01-14 06:12] LABS: BASOPHIL % 0.4 % (0.1-1.2); Basophil (Absolute #) 0.05 x10^3/uL (0.01-0.08); Eosinophil (Absolute #) 0.03 x10^3/uL (0.04-0.36); Hematocrit 32.2 % (34.1-44.9); Hemoglobin 10.3 g/dL (11.2-15.7); IMMATURE GRAN # 0.07 x10^3u/L (0.001-0.031); IMMATURE GRAN % 0.5 % (0.001-0.429); Lymphocyte (Absolute #) 1.89 x10^3/uL (1.18-3.74); Mean Corpuscular Hemoglobin 31.1 pg (25.6-32.2); Mean Corpuscular Hgb Concent. 32.0 g/dL (32.2-35.5); Monocyte (Absolute #) 1.00 x10^3/uL (0.24-0.86); NUCLEATED RBC # 0.00 x10^3u/L (0.00-0.012); NUCLEATED RBC % 0.0 % (0.00-0.2); Platelet Count 221 x10^3/uL (182-369); Red Blood Count 3.31 x10^6/uL (3.93-5.22); White Blood Count 13.7 x10^3/uL (3.98-10.04)
[2025-01-14 07:00] LABS: Calcium 9.0 mg/dL (8.4-10.2); Carbon Dioxide 25.0 mmol/L (22-30); Creatinine 1 1.48 mg/dL (0.52-1.04); EST GLOMERULAR FILTRATION RATE 34.9 ML/MIN; Glucose 126.0 mg/dL (74-106); Potassium 4.3 mmol/L (3.5-5.1); SGOT/AST 16.0 U/L (14-36); SGPT/ALT 11.0 U/L (0-35); Total Protein 6.1 g/dL (6.3-8.2)
[2025-01-14 07:56] VITALS: BP 145/61; TEMP 96.8
[2025-01-14 08:49] LABS: Hematocrit 36.8 % (34.1-44.9); Hemoglobin 11.6 g/dL (11.2-15.7); Mean Corpuscular Hemoglobin 31.1 pg (25.6-32.2); Mean Corpuscular Hgb Concent. 31.5 g/dL (32.2-35.5); Platelet Count 235 x10^3/uL (182-369); Red Blood Count 3.73 x10^6/uL (3.93-5.22); White Blood Count 16.1 x10^3/uL (3.98-10.04)
--- NOTE | 2025-01-14 10:26 | PCM.DS ---
Discharge Summary Date of Admission: 01/12/25 22:40 Date of Discharge: 01/14/25 Admitting Physician: MARIBEL VARGAS MD Consults: Consults on Case 01/12/25 17:13 Tele-Health Consult ROUTINE Primary Care Provider: FRANKI TOBAR Allergies Allergies vancomycin Adverse Reaction (Severe, Verified 01/12/25 19:37) pt states causes kidney damage ALLERGIC TO IV ONLY IV contrast dye Adverse Reaction (Severe, Uncoded 01/12/25 19:37) Hospital Summary - Hospital Course Hospital Course: Ms. Bragg is an 84-year-old woman who arrived to the emergency department with sudden-onset dizziness accompanied by head and neck discomfort and intermittent blurred vision. On presentation her vital signs were stable, and aside from the vertigo she denied additional neurologic or systemic symptoms. CT head with and without contrast showed no acute intracranial pathology to explain her vertigo; instead, the study demonstrated only remote left occipital cortical and subcortical encephalomalacia along with chronic bilateral periventricular lacunar infarcts. CTA of the head and neck further revealed no aneurysm, dissection, or flow-limiting stenosisonly age-related carotid atherosclerotic calcifications without hemodynamic significance. These findings, along with the absence of focal deficits during serial neurologic exams, made acute large- vessel stroke unlikely. Laboratory evaluation demonstrated a mildly elevated anion gap, BUN 30, creatinine 1.45 (improved from her baseline of 1.6), and hyperglycemia to 177. Urinalysis was strongly suggestive of urinary tract infection, and ceftriaxone was initiated. Her dizziness improved partially after meclizine in the ED, though she continued to feel generally weak and unsteady. She was evaluated via teleneurology, who recommended further vascular and parenchymal assessment with MRI/MRA, but the patient initially declined secondary to severe claustrophobia. After further discussion she later agreed to attempt MRI with pre-procedure anxiolysis. Throughout admission, she reported persistent room-spinning vertigo that affected balance and limited ambulation, prompting a PT evaluation. Imaging review ultimately included CT head, CTA H/N, and later MRI brain without contrast, which showed age-appropriate atrophy and chronic microvascular changes but no acute intracranial abnormalities, no evidence of evolving infarct, and no large-vessel territorial ischemia. Neurology formally reviewed all imaging and cleared her for discharge, recommending continuation of 81mg aspirin and atorvastatin 8omg daily with OP neurology follow up. On the morning of discharge, the patient reported complete resolution of dizziness and weakness and demonstrated safe ambulation to the bathroom without instability. She declined short-term rehabilitation but agreed to home health PT/OT and was advised to consistently use her front-wheel walker. Her urine culture grew gram-negative rods with sensitivities pending, and her WBC count had risen to 16.1 without focal urinary symptoms. Given culture trajectory and persistent leukocytosis, she is being discharged on renally dosed levofloxacin. 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 Discharge Note New Diagnosis: UTI/Dizziness New Medications:Meclizine/ Levaquin (renally dosed by pharmacy at 750mg Q 48 x 7 days) Follow Up: PCP, nephrology, neurology I spent 35 minutes [id number] with the patient on the day of discharge performing discharge exam, discussing hospital stay and discharge instructions with patient and caregivers, preparation of discharge records, prescriptions & referral forms and addressing any questions/concerns the patient had as documented above. - Vitals & Intake/Output Vital Signs: Vital Signs Temperature 96.8 F 01/14/25 07:56 Pulse Rate 71 01/14/25 07:56 Respiratory Rate 17 01/14/25 07:56 Blood Pressure 145/61 01/14/25 07:56 O2 Sat by Pulse Oximetry 95 01/14/25 07:56 Intake & Output: Intake & Output 01/11/25 01/12/25 01/13/25 01/14/25 11:59 11:59 11:59 11:59 Intake Total 1063 1460 Output Total 0 300 Balance 1063 1160 Weight 112.9 kg 112.9 kg - Lab Result Diagrams: 01/14/25 08:47 01/14/25 05:38 Lab Results-Last 24 Hrs: Lab Results-Last 24 Hours 01/13/25 01/13/25 01/13/25 Range/Units 12:07 16:48 22:05 WBC (3.98-10.04) x10^3/uL RBC (3.93-5.22) x10^6/uL Hgb (11.2-15.7) g/dL Hct (34.1-44.9) % MCV (79.4-94.8) fL MCH (25.6-32.2) pg MCHC (32.2-35.5) g/dL RDW (11.7-14.4) % Plt Count (182-369) x10^3/uL MPV (9.4-12.3) fL Gran % (34.0-71.1) % Immature Gran % (Auto) (0.001-0.429) % Nucleat RBC Rel Count (0.00-0.2) % Eos # (Auto) (0.04-0.36) x10^3/uL Immature Gran # (Auto) (0.001-0.031) x10^3u/L Absolute Lymphs (auto) (1.18-3.74) x10^3/uL Absolute Monos (auto) (0.24-0.86) x10^3/uL Absolute Nucleated RBC (0.00-0.012) x10^3u/L Lymphocytes % (19.3-51.7) % Monocytes % (4.7-12.5) % Eosinophils % (0.7-5.8) % Basophils % (0.1-1.2) % Absolute Granulocytes (1.56-6.13) x10^3/uL Basophils # (0.01-0.08) x10^3/uL Sodium (135-145) mmol/L Potassium (3.5-5.1) mmol/L Chloride (98-107) mmol/L Carbon Dioxide (22-30) mmol/L Anion Gap (5-15) MEQ/L BUN (7-17) mg/dL Creatinine (0.52-1.04) mg/dL Estimated GFR ML/MIN Glucose (74-106) mg/dL POC Glucometer 245 H 148 H 194 H (74 to 106) mg/dL Calcium (8.4-10.2) mg/dL Total Bilirubin (0.2-1.3) mg/dL AST (14-36) U/L ALT (0-35) U/L Alkaline Phosphatase (38-126) U/L Serum Total Protein (6.3-8.2) g/dL Albumin (3.5-5.0) g/dL Free T4 (0.78-2.19) ng/dL TSH 3rd Generation (0.470-4.680) mIU/L 11/29/25 11/29/25 11/29/25 Range/Units 05:38 05:38 05:38 WBC 13.7 H (3.98-10.04) x10^3/uL RBC 3.31 L (3.93-5.22) x10^6/uL Hgb 10.3 L (11.2-15.7) g/dL Hct 32.2 L (34.1-44.9) % MCV 97.3 H (79.4-94.8) fL MCH 31.1 (25.6-32.2) pg MCHC 32.0 L (32.2-35.5) g/dL RDW 13.3 (11.7-14.4) % Plt Count 221 (182-369) x10^3/uL MPV 10.7 (9.4-12.3) fL Gran % 77.8 H (34.0-71.1) % Immature Gran % (Auto) 0.5 H (0.001-0.429) % Nucleat RBC Rel Count 0.0 (0.00-0.2) % Eos # (Auto) 0.03 L (0.04-0.36) x10^3/uL Immature Gran # (Auto) 0.07 H (0.001-0.031) x10^3u/L Absolute Lymphs (auto) 1.89 (1.18-3.74) x10^3/uL Absolute Monos (auto) 1.00 H (0.24-0.86) x10^3/uL Absolute Nucleated RBC 0.00 (0.00-0.012) x10^3u/L Lymphocytes % 13.8 L (19.3-51.7) % Monocytes % 7.3 (4.7-12.5) % Eosinophils % 0.2 L (0.7-5.8) % Basophils % 0.4 (0.1-1.2) % Absolute Granulocytes 10.70 H (1.56-6.13) x10^3/uL Basophils # 0.05 (0.01-0.08) x10^3/uL Sodium 138 (135-145) mmol/L Potassium 4.3 (3.5-5.1) mmol/L Chloride 106 (98-107) mmol/L Carbon Dioxide 25 (22-30) mmol/L Anion Gap 10.6 (5-15) MEQ/L BUN 33 H (7-17) mg/dL Creatinine 1.48 H (0.52-1.04) mg/dL Estimated GFR 34.9 ML/MIN Glucose 126 H (74-106) mg/dL POC Glucometer (74 to 106) mg/dL Calcium 9.0 (8.4-10.2) mg/dL Total Bilirubin 0.30 (0.2-1.3) mg/dL AST 16 (14-36) U/L ALT 11 (0-35) U/L Alkaline Phosphatase 65 (38-126) U/L Serum Total Protein 6.1 L (6.3-8.2) g/dL Albumin 3.5 (3.5-5.0) g/dL Free T4 0.97 (0.78-2.19) ng/dL TSH 3rd Generation 0.191 L (0.470-4.680) mIU/L 01/14/25 01/14/25 Range/Units 07:44 08:47 WBC 16.1 H (3.98-10.04) x10^3/uL RBC 3.73 L (3.93-5.22) x10^6/uL Hgb 11.6 (11.2-15.7) g/dL Hct 36.8 (34.1-44.9) % MCV 98.7 H (79.4-94.8) fL MCH 31.1 (25.6-32.2) pg MCHC 31.5 L (32.2-35.5) g/dL RDW 13.2 (11.7-14.4) % Plt Count 235 (182-369) x10^3/uL MPV 10.4 (9.4-12.3) fL Gran % (34.0-71.1) % Immature Gran % (Auto) (0.001-0.429) % Nucleat RBC Rel Count (0.00-0.2) % Eos # (Auto) (0.04-0.36) x10^3/uL Immature Gran # (Auto) (0.001-0.031) x10^3u/L Absolute Lymphs (auto) (1.18-3.74) x10^3/uL Absolute Monos (auto) (0.24-0.86) x10^3/uL Absolute Nucleated RBC (0.00-0.012) x10^3u/L Lymphocytes % (19.3-51.7) % Monocytes % (4.7-12.5) % Eosinophils % (0.7-5.8) % Basophils % (0.1-1.2) % Absolute Granulocytes (1.56-6.13) x10^3/uL Basophils # (0.01-0.08) x10^3/uL Sodium (135-145) mmol/L Potassium (3.5-5.1) mmol/L Chloride (98-107) mmol/L Carbon Dioxide (22-30) mmol/L Anion Gap (5-15) MEQ/L BUN (7-17) mg/dL Creatinine (0.52-1.04) mg/dL Estimated GFR ML/MIN Glucose (74-106) mg/dL POC Glucometer 107 H (74 to 106) mg/dL Calcium (8.4-10.2) mg/dL Total Bilirubin (0.2-1.3) mg/dL AST (14-36) U/L ALT (0-35) U/L Alkaline Phosphatase (38-126) U/L Serum Total Protein (6.3-8.2) g/dL Albumin (3.5-5.0) g/dL Free T4 (0.78-2.19) ng/dL TSH 3rd Generation (0.470-4.680) mIU/L Micro Results-Entire Visit: Microbiology 01/12/25 20:17 Urine Culture - Preliminary Clean Catch Midstream GRAM NEGATIVE ID AND SENSITIVITY PENDING Accuchecks Date 01/14/25 Date 01/13/25 Time 07:55 Time 16:51 - Radiology Exams Ordered Rad Exams-Entire Visit: Radiology Procedures Category Date Time Status CT ANGIOGRAPHY NECK [CT] Stat Exams 01/12/25 21:35 Completed CTA HEAD W AND/OR WO CONTRAST [CT] Stat Exams 01/12/25 21:37 Completed ECHO W/2D AND DOPPLER [US] Routine Exams 01/13/25 22:50 Taken HEAD WITHOUT CONTRAST [CT] Stat Exams 01/12/25 16:51 Completed MRI BRAIN W/O CONTRAST [MRI] Routine Exams 01/13/25 08:23 Completed - Procedures and Test Procedures and Tests throughout Hospitalization: Therapy Orders & Screens 01/12/25 22:17 PT Eval & Treat ( Order) ONCE Reason for Eval:: weakenss Diagnosis: vertigo 01/13/25 07:30 OT Screen per Nursing Assess ONCE Comment: Protocol Order Physician Instructions: Greater than 3 points order OT Admission Screening Reason For Exam: Triggered on Admission Diagnosis: vertigo Open Wound/Cellutlitis/Pressure Ulcers: No Acute Fx/ORIF/Change in wt bearing status: No Severe MUSCULOSKELETAL pain: No ADL Dysfunction: Yes Acute CVA w/Hemiparesis/Hemiplegia: No Decreased Functional Mobility/Strength: Yes Sprain/Strain: No Acute Post-op Mobility Dysfunction: No Total Points: 4 PT Screen per Nursing Assess ONCE Comment: Protocol Order Physician Instructions: Greater than 3 points order PT Admission Screenin Reason For Exam: Triggered on Admission Diagnosis: vertigo Open Wound/Cellutlitis/Pressure Ulcers: No Acute Fx/ORIF/Change in wt bearing status: No Severe MUSCULOSKELETAL pain: No ADL Dysfunction: Yes Acute CVA w/Hemiparesis/Hemiplegia: No Decreased Functional Mobility/Strength: Yes Sprain/Strain: No Acute Post-op Mobility Dysfunction: No Total Points: 4 Discharge Exam General Appearance: no apparent distress Neurologic Exam: alert, 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, cooperative, nml station & gait Eye Exam: PERRL Ears, Nose, Throat Exam: normal ENT inspection Neck Exam: normal inspection Respiratory Exam: normal breath sounds, lungs clear Cardiovascular Exam: regular rate/rhythm, normal heart sounds Gastrointestinal/Abdomen Exam: soft, normal bowel sounds Pelvic Exam: deferred Rectal Exam: deferred Back Exam: normal inspection Extremity Exam: normal inspection Final Diagnosis/Problem List - Final Discharge Diagnosis/Problem (1) Dizziness Current Visit: Yes Status: Acute Assessment & Plan: Imaging (CT head w/wo, CTA head/neck, MRI brain) showed no acute intracranial pathology; only chronic encephalomalacia and microvascular ischemic changes. Continue aspirin 81 mg daily and atorvastatin 80 mg daily as part of secondary stroke prevention strategy given chronic infarcts and vascular disease. Meclizine 12.5 mg QID PRN for any recurrence of positional vertigo. Home health PT/OT for gait training, safety evaluation, balance therapy. Use front-wheel walker at all times until cleared by therapy. Follow up with neurology for outpatient stroke risk assessment and review of MRI findings. Return precautions for recurrent vertigo, diplopia, unilateral weakness, dysarthria, or gait deterioration. Code(s): R42 - DIZZINESS AND GIDDINESS (2) Acute UTI Current Visit: Yes Status: Acute Assessment & Plan: Continue antibiotics: levofloxacin 750 mg every 48 hours 7 days (renally dosed). Urine culture pending sensitivities PCP to review upon follow-up and adjust therapy if needed. Encourage hydration as tolerated. Monitor for fever, dysuria, urinary retention, flank pain, or worsening leukocytosis. Code(s): N39.0 - URINARY TRACT INFECTION, SITE NOT SPECIFIED (3) CHF (congestive heart failure) Current Visit: Yes Status: Acute Assessment & Plan: Resume home heart-failure medications. Daily weights, fluid balance awareness. Echo was ordered to reassess EF and valvular function; results pending PCP/cardiology to follow up. Return for dyspnea, orthopnea, weight gain >23 lb overnight or 5 lb in one week. Code(s): I50.9 - HEART FAILURE, UNSPECIFIED (4) Weakness Current Visit: Yes Status: Acute Assessment & Plan: Likely multifactorial: acute illness, dizziness, chronic microvascular brain changes. Continue home health PT/OT for strengthening, mobility optimization, and fall risk reduction. Use assistive device consistently until reassessed. Call PCP or return to ED if new focal deficits develop. Code(s): R53.1 - WEAKNESS (5) Diabetes Current Visit: Yes Status: Acute Assessment & Plan: Resume home regimen; glucose elevations likely steroid-induced. Continue ADA diet. Outpatient PCP to reassess regimen if hyperglycemia persists. A1c 5.6 suggests good overall control. Code(s): E11.9 - TYPE 2 DIABETES MELLITUS WITHOUT COMPLICATIONS (6) HTN (hypertension) Current Visit: Yes Status: Acute Assessment & Plan: Resume home antihypertensives; blood pressures stable during admission. . Code(s): I10 - ESSENTIAL (PRIMARY) HYPERTENSION Telemedicine Encounter - Telemedicine Encounter Telemedicine Encounter: "The entirety of this encounter was performed via Telemedicine" This visit was performed using real-time audio and video connection between my location and thepatients locationwith the assistance of a surrogateat the patients location. Written or verbal consent was obtained from the patient/guardian to perform this visit using[facility] technology. Any patient questions regarding the telemedicine interaction were answered. - Discharge Discharge Date: 01/14/25 Disposition: Home, Self-Care Condition: Stable Prescriptions: New Meclizine HCl 25 mg [Antivert 25 mg] 12.5 mg PO QID PRN PRN 30 Days #60 tablet PRN Reason: Dizziness Aspirin EC 81 mg [Ecotrin 81 mg] 81 mg PO QAM 30 Days #30 tablet levoFLOXacin [Levofloxacin] 750 mg PO Q48H 7 Days #4 tablet Atorvastatin Calcium [Lipitor 40Mg] 80 mg PO DAILY 30 Days #30 tablet Continue Ferrous Sulfate [Iron] 325 mg PO BID Torsemide 20 mg [Demadex 20 mg] 40 mg PO DAILY Allopurinol 100 mg [Zyloprim 100 mg] 100 mg PO DAILY Ergocalciferol (Vitamin D2) [Vitamin D2] 1,250 mcg PO WEEKLY Hydralazine HCl 25 mg PO Q8H Losartan Potassium 50 mg [Cozaar 50 MG] 50 mg PO DAILY Magnesium Oxide 400 mg [Mag-Ox 400] 400 mg PO 2XW Oxybutynin Chloride [Oxybutynin Chloride ER] 10 mg PO DAILY Sertraline HCl 50 mg [Zoloft 50 mg Tablet] 50 mg PO DAILY ALPRAZolam [Alprazolam] 1 mg PO BIDPRN PRN PRN Reason: Anxiety/Agitation Discontinued Donepezil HCl [Aricept] 10 mg PO DAILY Additional Instructions: Hold Aricept until levaquin is completed [facility] will be set up for PT/OT will contact you on Thursday with details Follow up with: FRANKI TOBAR MD [Primary Care Provider, [facility]]
[2025-01-14 12:48] VITALS: PULSE 84
[2025-01-14 12:49] VITALS: RESP 22
[2025-01-15] MEDS ORDERED: VITAMIN D2 PO SCH (10:00)
== END 2025-01-14 12:07 | disposition home or self-care (01) ==
LOC: ED 16:44 → MED SURG 22:40
PROVIDERS: ADMIT Hospitalist; ATTEND Hospitalist
DX: R42 Dizziness and giddiness (principal); N39.0 Urinary tract infection, site not specified; Z59.19 Other inadequate housing; I11.0 Hypertensive heart disease with heart failure; I50.9 Heart failure, unspecified; R53.1 Weakness; E11.9 Type 2 diabetes mellitus without complications; Z79.899 Other long term (current) drug therapy